=== PATIENT | male | born 1945 | race Caucasian/White ===

== ENCOUNTER → 2016-08-31 | Outpatient (CLI) | payer OTHER, MEDICARE ==
[~2016-08-31] MED LIST: ACET325T96 PO; AMLO2.5T PO; ATOR-24 PO; CZR50 PO; HYDC25 PO; HYDR25TA5 PO; LOSA100T65 PO; LPT40 PO; NRV/5 PO; PARO1TAB29 PO; PRX/40 PO
[2016-08-31 18:17] LABS: BLOOD UREA NITROGEN 20 mg/dl (7-18); BUN/CREATININE RATIO 15.6 (10-20); CALCIUM 8.9 mg/dl (8.5-10.1); CARBON DIOXIDE 30 mmol/L (21-32); CHLORIDE 103 mmol/L (98-107); GLUCOSE 96 mg/dl (70-99); POTASSIUM 3.3 mmol/L (3.5-5.1); SODIUM 140 mmol/L (136-145)
== END | disposition home or self-care (01) ==
LOC: C.LABPBG 12:05
PROVIDERS: ATTEND Internal Medicine Geriatric Medicine
DX: I10 Essential (primary) hypertension (principal)

== ENCOUNTER → 2016-09-07 | Outpatient (CLI) | payer OTHER, MEDICARE ==
[~2016-09-07] MED LIST changes: +OPTIRAY 320 IV PRN
--- NOTE | 2016-09-07 08:53 | DIAGNOSTIC IMAGING REPORT ---
CT angiogram of the chest (CHEST) THORAX WITH AND W/O CLINICAL HISTORY: I71.2 Aneurysm, thoracic [id number] aneurysm TECHNIQUE: Transaxial acquisition with multi axial reformatted images COMPARISON STUDY: 11/14/2015 FINDINGS: Stable mild distention a sending thoracic aorta with maximum diameter of 3.9 cm. This is unchanged from the prior study. No new or interval finding. No evidence for dissection. Several small shotty mediastinal and/or hilar nodes unchanged. Lungs are considered clear. IMPRESSION: Unchanging appearance to the thoracic aorta. Lungs are clear. Electronically signed by: Romain Canela M.D. 09/07/2016 8:51 AM Dictated Date/Time: 09/07/2016 8:49 AM
== END | disposition home or self-care (01) ==
LOC: C.CTS 08:19
PROVIDERS: ATTEND Internal Medicine Geriatric Medicine
DX: I71.2 Thoracic aortic aneurysm, without rupture (principal); R06.02 Shortness of breath

== ENCOUNTER → 2016-11-19 | Outpatient (CLI) | payer OTHER, MEDICARE ==
--- NOTE | 2016-11-19 07:53 | DIAGNOSTIC IMAGING REPORT ---
CT angiogram of chest CHEST ANGIO WITH CONTRAST CLINICAL HISTORY: Aneurysm TECHNIQUE: Transaxial acquisition with multi axial reformatted images. FINDINGS: Mild dilatation of the a sending thoracic aorta with maximum dimension of 3.9 cm. This is unchanged from the prior exam. Lungs are considered clear. No significant hilar or mediastinal adenopathy. No evidence for dissection. COMPARISON STUDY: 09/07/2016 IMPRESSION: 3.9 cm distention a sending thoracic aorta unchanged from the prior study. Electronically signed by: Romain Canela M.D. 11/19/2016 7:51 AM Dictated Date/Time: 11/19/2016 7:46 AM
== END | disposition home or self-care (01) ==
LOC: C.CTS 06:37
PROVIDERS: ATTEND Internal Medicine Geriatric Medicine
DX: I71.2 Thoracic aortic aneurysm, without rupture (principal)

== ENCOUNTER 2017-02-24 15:53 | Emergency (ER) | payer OTHER, MEDICARE ==
[~2017-02-24] VITALS: Ht 172.7 cm; Wt 103.9 kg
[~2017-02-24 15:53] MED LIST changes: -ATOR-24 PO; -HYDR25TA5 PO; -LOSA100T65 PO; -NRV/5 PO; -OPTIRAY 320 IV PRN; -PRX/40 PO
[2017-02-24 16:08] VITALS: TEMP 36.6; Ht 172.7 cm; Wt 103.9 kg
--- NOTE | 2017-02-24 17:24 | EMERGENCY ROOM VISIT NOTE ---
History First contact with patient: 17:23 Chief Complaint: RIB PAIN Stated Complaint: LT SIDE CHEST PAINS FROM LIFTING History of Present Illness The patient is a 71 year old male who presents to the Emergency Room with complaints of left sided chest/ rib pain which was approx 5.5 hours prior to arrival. The patient was lifting a heavy object and had sudden onset left chest pain in the mid axillary line. It was sharp 6/10 pain which did not radiate. Throughout the day with any twisting movements the pain would be replicated. The patient was concerned because it was "in the area' and came in for [facility] assessment. Patient did not suffering from substernal chest pain, SOB, diaphoresis or nausea with the pain. He has no history of WI/ CVA in him or his family. Patient is a non smoker. It is reproducible with palpation. Review of Systems A 10 point review of systems was assessed and negative aside from above Past Medical/Surgical History Medical Problems: (1) Benign hypertension (2) Dyslipidemia (3) History of cochlear implant Family History No significant family history Social History Smoking Status: Never Smoker Smokeless Tobacco Use: No Alcohol Use: none Drug Use: none Marital Status: Housing Status: lives with family Occupation Status: retired Current/Historical Medications Scheduled Amlodipine Besylate (Amlodipine Besylate), 1 TAB PO DAILY Atorvastatin (Lipitor), 1 TAB PO DAILY Hydrochlorothiazide (Hydrochlorothiazide), 1 TAB PO DAILY Losartan Potassium (Cozaar), 1 TAB PO DAILY Paroxetine (Paroxetine HCl), 1 TAB PO DAILY Scheduled PRN Acetaminophen Tab (Tylenol), 325-975 MG PO Q6 PRN for Pain Allergies NKA Physical Exam Vital Signs Date Time Temp Pulse Resp B/P (MAP) Pulse Ox O2 Delivery O2 Flow Rate FiO2 02/24/17 17:58 69 18 118/72 96 Room Air 02/24/17 16:08 36.6 79 20 123/79 95 Room Air Physical Exam General: ambulatory, not in acute distress Skin: no rashes noted, no suspicious lesions, no areas of inflammations/ lacerations/ erythema noted CVS: S1/ S2 noted, RRR, 3/6 systolic murmur noted, no cyanosis, tenderness to palpation of the chest wall at the midaxillary line RVS: Clear throughout bilaterally, not in acute respiratory distress, no wheezing/ rales/ crackles noted ENT: no erythema/ injection/ ulcerations noted in the pharynx, adentulous Neck: Thyroid is not palpable, inspection WNL, full ROM of neck, no bruits noted ABD: BSx4, no pain/ tenderness on palpation, no organomegaly, negative murphys, psoas, Rovsing, CVA tenderness MSK: inspection of all limbs WNL, motor and sensation intact in all limbs, no swelling/ pain on palpation of joints NVS: alert and oriented x 3 Lymph: No lymphadenopathy palpable Medical Decision & Procedures ER Provider Diagnostic Interpretation: SINGLE VIEW CHEST CLINICAL HISTORY: Atypical chest pain. FINDINGS: An AP, portable, upright chest radiograph is compared to study dated 10/23/2014 and correlated with chest CT dated 11/19/2016. The examination is degraded by portable technique and patient rotation. The heart is enlarged and there is atherosclerotic calcification of the thoracic aorta. The pulmonary vasculature is noncongested. Chronic interstitial thickening is similar to previous. No airspace consolidation or large pleural effusion is identified. No pneumothorax is seen. The skeletal structures are osteopenic. Degenerative change is noted in the shoulders and thoracic spine. There are healed left-sided rib fractures. IMPRESSION: Cardiomegaly with no acute cardiopulmonary abnormality. Laboratory Results 02/24/17 17:40 Red Blood Count 4.89, Mean Corpuscular Volume 90.2, Mean Corpuscular Hemoglobin 29.4, Mean Corpuscular Hemoglobin Concent 32.7, Mean Platelet Volume 9.1, Neutrophils (%) (Auto) 63.3, Lymphocytes (%) (Auto) 22.5, Monocytes (%) (Auto) 9.5, Eosinophils (%) (Auto) 3.3, Basophils (%) (Auto) 0.9, Neutrophils # (Auto) 3.46, Lymphocytes # (Auto) 1.23, Monocytes # (Auto) 0.52, Eosinophils # (Auto) 0.18, Basophils # (Auto) 0.05 02/24/17 17:40 Test 02/24/17 17:24 02/24/17 17:40 Creatine Kinase MB Ratio (0-3.0) White Blood Count 5.47 K/uL (4.8-10.8) Red Blood Count 4.89 M/uL (4.7-6.1) Hemoglobin 14.4 g/dL (14.0-18.0) Hematocrit 44.1 % (42-52) Mean Corpuscular Volume 90.2 fL (80-100) Mean Corpuscular Hemoglobin 29.4 pg (25-34) Mean Corpuscular Hemoglobin Concent 32.7 g/dl (32-36) Platelet Count 278 K/uL (130-400) Mean Platelet Volume 9.1 fL (7.4-10.4) Neutrophils (%) (Auto) 63.3 % Lymphocytes (%) (Auto) 22.5 % Monocytes (%) (Auto) 9.5 % Eosinophils (%) (Auto) 3.3 % Basophils (%) (Auto) 0.9 % Neutrophils # (Auto) 3.46 K/uL (1.4-6.5) Lymphocytes # (Auto) 1.23 K/uL (1.2-3.4) Monocytes # (Auto) 0.52 K/uL (0.11-0.59) Eosinophils # (Auto) 0.18 K/uL (0-0.5) Basophils # (Auto) 0.05 K/uL (0-0.2) RDW Standard Deviation 43.7 fL (36.4-46.3) RDW Coefficient of Variation 13.3 % (11.5-14.5) Immature Granulocyte % (Auto) 0.5 % Immature Granulocyte # (Auto) 0.03 K/uL (0.00-0.02) Anion Gap 8.0 mmol/L (3-11) Est Creatinine Clear Calc Drug Dose 74.0 ml/min Estimated GFR () 79.0 Estimated GFR (Non- 68.1 BUN/Creatinine Ratio 15.4 (10-20) Calcium Level 9.0 mg/dl (8.5-10.1) Creatine Kinase MB 4.7 ng/ml (0.5-3.6) Troponin I < 0.015 ng/ml (0-0.045) ECG Indication: chest pain Rate (beats per minute): 75 Rhythm: normal sinus Findings: no acute ischemic change, no ectopy Change: no significant change ED Course 1720: Patient was assessed and evaluated by the PCP 1830: Discussed results of test with patient, discharged home and agreeable Medical Decision Differential diagnosis: Etiologies such as cardiac ischemia, aortic dissection, pulmonary embolism, pneumonia, pneumothorax, musculoskeletal, infections, pericarditis, myocarditis , esophageal rupture, gastrointestinal, as well as others were entertained. This is a 71 yo m that is suffering from left chest/ rib pain and underwent a cardiac assessment. CBC did not reveal any anemia or leukocytosis. No PNA or overt fractures noted on the CXR however unlikely that patient has a rib fracture as no trauma associated with the pain. BMP was unremarkable and troponin is negative. It is reassuring that troponin and pain is reproducible with palpation as this makes it more likely to be MSK based. Discussed close follow up with PCP in particular for evaluation of murmur. Patient reflected understanding and discharged home. Blood Pressure Screening Patient's blood pressure: Normal blood pressure Impression Primary Impression: Muscle strain of chest wall Departure Information Dispostion Home / Self-Care Condition GOOD Referrals Miguel Angel Rea M.D. (PCP) Patient Instructions [facility] Problem Qualifiers Primary Impression: Muscle strain of chest wall Encounter type: initial encounter Qualified Codes: S29.011A - Strain of muscle and tendon of front wall of thorax, initial encounter
--- NOTE | 2017-02-24 17:35 | EMERGENCY ROOM VISIT NOTE ---
ED Visit Note First contact with patient: 17:23 Resident Physician Supervision Note: I interviewed and examined the patient. Discussed with Dr. Macias and agree with findings and plan as documented in the note. Documented By: Ralph Garcia Problem List Medical Problems: (1) Benign hypertension Status: Chronic (2) Dyslipidemia Status: Chronic (3) History of cochlear implant Status: Resolved Current/Historical Medications Scheduled Amlodipine Besylate (Norvasc), 2.5 MG PO DAILY Atorvastatin (Atorvastatin Calcium), 40 MG PO HS Hydrochlorothiazide (Hctz *), 25 MG PO QPM Losartan Potassium (Cozaar *), 100 MG PO QPM Paroxetine (Paxil), 40 MG PO QPM Scheduled PRN Acetaminophen Tab (Tylenol), 325-975 MG PO Q6 PRN for Pain Allergies Coded Allergies: No Known Allergies (Unverified , 08/24/15) Vital Signs Date Time Temp Pulse Resp B/P (MAP) Pulse Ox O2 Delivery O2 Flow Rate FiO2 02/24/17 16:08 36.6 79 20 123/79 95 Room Air Laboratory Results Test 02/24/17 17:24 Creatine Kinase MB Ratio (0-3.0) Departure Information Referrals Miguel Angel Rea M.D. (PCP) Patient Instructions My [facility]
[2017-02-24] MEDS ORDERED: HYDR25TA5 PO (17:38)
[2017-02-24] MEDS ORDERED: NRV/5 PO (17:38)
[2017-02-24] MEDS ORDERED: ATOR-24 PO (17:38)
[2017-02-24] MEDS ORDERED: LOSA100T65 PO (17:38)
[2017-02-24] MEDS ORDERED: PRX/40 PO (17:38)
[2017-02-24 17:53] LABS: BASO % 0.9 %; BASO ABS # 0.05 K/uL (0-0.2); COMPLETE YES; EOS % 3.3 %; HEMATOCRIT 44.1 % (42-52); IG% 0.5 %; LYMPH % 22.5 %; LYMPH ABS # 1.23 K/uL (1.2-3.4); MEAN CELL VOLUME 90.2 fL (80-100); MEAN CORPUSCULAR HEMOGLOBIN 29.4 pg (25-34); MEAN CORPUSCULAR HGB CONC 32.7 g/dl (32-36); MEAN PLATELET VOLUME 9.1 fL (7.4-10.4); MONO % 9.5 %; NEUT % 63.3 %; PLATELET COUNT 278 K/uL (130-400); RED BLOOD COUNT 4.89 M/uL (4.7-6.1); WHITE BLOOD COUNT 5.47 K/uL (4.8-10.8)
--- NOTE | 2017-02-24 18:00 | DIAGNOSTIC IMAGING REPORT ---
SINGLE VIEW CHEST CLINICAL HISTORY: Atypical chest pain. FINDINGS: An AP, portable, upright chest radiograph is compared to study dated 10/23/2014 and correlated with chest CT dated 11/19/2016. The examination is degraded by portable technique and patient rotation. The heart is enlarged and there is atherosclerotic calcification of the thoracic aorta. The pulmonary vasculature is noncongested. Chronic interstitial thickening is similar to previous. No airspace consolidation or large pleural effusion is identified. No pneumothorax is seen. The skeletal structures are osteopenic. Degenerative change is noted in the shoulders and thoracic spine. There are healed left-sided rib fractures. IMPRESSION: Cardiomegaly with no acute cardiopulmonary abnormality. Electronically signed by: Kimo Mora M.D. 02/24/2017 5:59 PM Dictated Date/Time: 02/24/2017 5:58 PM
[2017-02-24 18:10] LABS: BLOOD UREA NITROGEN 17 mg/dl (7-18); BUN/CREATININE RATIO 15.4 (10-20); CARBON DIOXIDE 28 mmol/L (21-32); CHLORIDE 98 mmol/L (98-107); GLUCOSE 87 mg/dl (70-99); POTASSIUM 3.5 mmol/L (3.5-5.1); SODIUM 134 mmol/L (136-145)
[2017-02-24 18:50] VITALS: BP 133/83; PULSE 70; O2SAT 94
== END 2017-02-24 18:50 | disposition home or self-care (01) ==
LOC: C.EDB 15:54 → C.EDA 18:50
DX: S29.011A Strain of muscle and tendon of front wall of thorax, initial encounter (principal); X50.0XXA Overexertion from strenuous movement or load, initial encounter; I10 Essential (primary) hypertension; E78.5 Hyperlipidemia, unspecified; Z79.899 Other long term (current) drug therapy

== ENCOUNTER → 2017-04-09 | Outpatient (CLI) | payer OTHER, MEDICARE ==
[~2017-04-09] MED LIST changes: -AMLO2.5T PO; +ATOR-24 PO; -CZR50 PO; -HYDC25 PO; +HYDR25TA5 PO; +LOSA100T65 PO; -LPT40 PO; +NRV/5 PO; +OPTIRAY 320 IV PRN; -PARO1TAB29 PO; +PRX/40 PO
--- NOTE | 2017-04-09 10:10 | DIAGNOSTIC IMAGING REPORT ---
ANGIOGRAPHY HEAD COMBO CLINICAL HISTORY: 71 years-old Male presenting with right-sided head pain, radiating to the jaw, trigeminal neuralgia, unable to obtain MRI. TECHNIQUE: Multidetector CT angiography of the head was performed after the administration of intravenous contrast. 3-D volumetric and/or maximum intensity projection (MIP) images were subsequently reconstructed for review. IV contrast: 93 mL of Optiray 320. A dose lowering technique was used consistent with the principles of ALARA (as low as reasonably achievable). COMPARISON: 05/16/2012. CT DOSE (mGy.cm): The estimated cumulative dose is 1023.93 mGy.cm. FINDINGS: Strategy Analyst topogram: Cochlear implants noted bilaterally. Noncontrast CT head: Extensive streak artifact arising from the cochlear implants degrades evaluation. Ventricles and sulci normal in size. Periventricular and subcortical white matter hypoattenuation, nonspecific but likely indicative of chronic small vessel ischemic change. No mass effect or midline shift. No hemorrhage or acute territorial infarct. No extra-axial fluid collection. Paranasal sinuses and mastoid air cells clear. Calvarium intact. Bilateral kasaan lenses are absent. CTA head: Anterior circulation demonstrates patent intracranial portions of the internal carotid arteries. Atherosclerosis of the cavernous segments without significant narrowing. Middle and anterior cerebral arteries patent. Anterior commuting artery patent. Posterior circulation demonstrates codominant vertebral arteries with atherosclerosis most significantly in the right vertebral artery resulting in less than 50% stenosis. Bilateral posterior inferior cerebellar, superior cerebellar, and posterior cerebral arteries patent. Anterior inferior cerebellar arteries poorly visualized. Hypoplastic or aplastic posterior communicating arteries. No evidence of aneurysm, focal vessel occlusion, or significant stenosis. Specifically, the region of Meckel's cave and the prepontine cistern are normal in appearance. IMPRESSION: 1. No acute intracranial pathology. 2. No significant aneurysm, stenosis, or focal vessel occlusion. Electronically signed by: Sharath Moreau M.D. 04/09/2017 10:06 AM Dictated Date/Time: 04/09/2017 9:58 AM
== END | disposition home or self-care (01) ==
LOC: C.CTS 09:18
PROVIDERS: ATTEND Internal Medicine Geriatric Medicine
DX: G50.0 Trigeminal neuralgia (principal); R51 Headache

== ENCOUNTER → 2017-06-29 | Outpatient (CLI) | payer OTHER, MEDICARE ==
[~2017-06-29] MED LIST changes: +ACET-1693 PO; -ACET325T96 PO; -OPTIRAY 320 IV PRN
[2017-06-29 12:57] LABS: BASO % 1.5 %; BASO ABS # 0.08 K/uL (0-0.2); EOS % 2.6 %; EOS ABS # 0.14 K/uL (0-0.5); HEMATOCRIT 42.6 % (42-52); HEMOGLOBIN 14.9 g/dL (14.0-18.0); IG# 0.03 K/uL (0.00-0.02); LYMPH % 20.3 %; LYMPH ABS # 1.11 K/uL (1.2-3.4); MEAN CELL VOLUME 89.9 fL (80-100); MEAN CORPUSCULAR HEMOGLOBIN 31.4 pg (25-34); MEAN PLATELET VOLUME 9.2 fL (7.4-10.4); MONO % 12.4 %; MONO ABS # 0.68 K/uL (0.11-0.59); NEUT % 62.7 %; NEUT ABS # 3.44 K/uL (1.4-6.5); PLATELET COUNT 280 K/uL (130-400); RED CELL DISTRIBUTION WIDTH CV 13.1 % (11.5-14.5); RED CELL DISTRIBUTION WIDTH SD 43.1 fL (36.4-46.3); WHITE BLOOD COUNT 5.48 K/uL (4.8-10.8)
[2017-06-29 14:36] LABS: ALBUMIN 3.8 gm/dl (3.4-5.0); ALKALINE PHOSPHATASE 124 U/L (45-117); ALT/SGPT 56 U/L (12-78); AST/SGOT 33 U/L (15-37); BLOOD UREA NITROGEN 17 mg/dl (7-18); CARBON DIOXIDE 30 mmol/L (21-32); CREATININE 1.05 mg/dl (0.60-1.40); GLUCOSE 84 mg/dl (70-99); POTASSIUM 3.1 mmol/L (3.5-5.1); SODIUM 129 mmol/L (136-145); TOTAL PROTEIN 7.3 gm/dl (6.4-8.2)
== END | disposition home or self-care (01) ==
LOC: C.LABPBG 10:37
PROVIDERS: ATTEND Internal Medicine Geriatric Medicine
DX: I10 Essential (primary) hypertension (principal); G50.0 Trigeminal neuralgia; M54.5 Low back pain; G89.29 Other chronic pain

== ENCOUNTER → 2017-07-16 | Outpatient (CLI) | payer OTHER, MEDICARE ==
[2017-07-16 13:09] LABS: BLOOD UREA NITROGEN 17 mg/dl (7-18); CREATININE 1.07 mg/dl (0.60-1.40); GLUCOSE 89 mg/dl (70-99)
[2017-07-16 13:10] LABS: CALCIUM 9.5 mg/dl (8.5-10.1); CARBON DIOXIDE 27 mmol/L (21-32); POTASSIUM 4.2 mmol/L (3.5-5.1); SODIUM 135 mmol/L (136-145)
== END | disposition home or self-care (01) ==
LOC: C.LABPBG 09:13
PROVIDERS: ATTEND Internal Medicine Geriatric Medicine
DX: I10 Essential (primary) hypertension (principal); R74.8 Abnormal levels of other serum enzymes

== ENCOUNTER 2018-01-12 11:58 | Emergency (ER) | payer OTHER, MEDICARE ==
[~2018-01-12] VITALS: Ht 172.7 cm; Wt 105.8 kg
[2018-01-12 12:06] VITALS: TEMP 36.5; Ht 172.7 cm; Wt 105.8 kg
--- NOTE | 2018-01-12 12:54 | EMERGENCY ROOM VISIT NOTE ---
History Report prepared by Christopher: Harjeet Foy Under the Supervision of: Dr. Yimi Hicks M.D. First contact with patient: 12:43 Chief Complaint: CARDIAC ASSESSMENT Stated Complaint: COLD IN THE LUNGS - PAIN FOR 5 DAYS History of Present Illness The patient is a 72 year old male who presents to the Emergency Room with complaints of chest pain x4-5 days. The patient notes he has a history of pleurisy. He states the past x4-5 days he has had waxing and waning chest pain however it never goes away. He states the pain is on the left side of his chest. He states movement makes the pain worse. He notes he has been taking Tylenol for it, with no relief. He states he has a history of this pain, and states it would normally resolve on it's own, but since it hasn't he became concerned and came in. Pt denies LOC, headache, fevers, chills, diaphoresis, visual changes, neck pain , tearing pain radiating to the back, personal history or family history of aneurysm or pulmonary embolism, uncontrolled hypertension, breathing difficulties, leg swelling, coagulation abnormalities, prolonged travel, recent surgery or immobilization, nausea, vomiting, abdominal pain, melena, hematochezia, urinary symptoms, numbness, weakness, lymphadenopathy, rash, or other complaints. Source of History: patient Onset: x4-5 days Position: chest (left) Symptom Intensity: moderate Quality: ache Timing: waxes/wanes Modifying Factors (Worsening): exertion, movement Modifying Factors (Relieving): rest Associated Symptoms: No LOC, No fevers, No chills, No headache, No sorethroat, No cough, No neck pain, No SOB, No nausea, No vomiting, No abdominal pain, No back pain, No diarrhea, No urinary symptoms, No weakness, No numbness Review of Systems See HPI for pertinent positives and negatives. A total of ten systems were reviewed and were otherwise negative. Constitutional: No fever, No chills Respiratory: No cough, No shortness of breath Cardiovascular: + chest pain Abdomen: No pain, No nausea, No vomiting, No diarrhea Genitourinary - Male: No dysuria Neurologic: No weakness, No numbness/tingling Endocrine: No fatigue Integumentary: No rash Past Medical & Surgical Medical Problems: (1) Benign hypertension (2) Dyslipidemia (3) Glaucoma (4) History of cochlear implant (5) Pleurisy (6) Trigeminal neuralgia Family History No significant family history Social History Smoking Status: Never Smoker Alcohol Use: none Drug Use: none Marital Status: Housing Status: lives with family Occupation Status: retired Current/Historical Medications Scheduled Amlodipine Besylate (Amlodipine Besylate), 1 TAB PO DAILY Atorvastatin (Lipitor), 1 TAB PO DAILY Carbamazepine Extended Release (Tegretol Xr), 100 MG PO BID Hydrochlorothiazide (Hydrochlorothiazide), 1 TAB PO DAILY Losartan Potassium (Cozaar), 1 TAB PO DAILY Paroxetine (Paroxetine HCl), 1 TAB PO DAILY Tamsulosin HCl (Tamsulosin HCl), 0.4 MG PO DAILY Scheduled PRN Acetaminophen Tab (Tylenol), 325-975 MG PO Q6 PRN for Pain Allergies Coded Allergies: No Known Allergies (Unverified , 01/12/18) Physical Exam Vital Signs Date Time Temp Pulse Resp B/P (MAP) Pulse Ox O2 Delivery O2 Flow Rate FiO2 01/12/18 16:16 82 18 137/79 99 01/12/18 15:45 77 01/12/18 15:03 73 15 97 01/12/18 15:01 166/112 01/12/18 14:33 70 19 95 01/12/18 14:31 160/96 01/12/18 14:22 67 153/89 95 Room Air 01/12/18 14:22 153/89 01/12/18 14:03 68 16 95 01/12/18 13:33 68 17 95 01/12/18 13:03 68 96 01/12/18 12:58 71 15 95 01/12/18 12:33 73 01/12/18 12:28 75 22 94 01/12/18 12:18 128/78 01/12/18 12:06 36.5 90 17 124/78 95 Room Air Physical Exam GENERAL: Awake, alert, well-appearing, in no distress HENT: Cochlear implants noted. Normocephalic, atraumatic. Oropharynx unremarkable. EYES: Normal conjunctiva. Sclera non-icteric. NECK: Supple. No nuchal rigidity. FROM. No masses. RESPIRATORY: Clear to auscultation. No wheezes. No rales. Normal respiratory effort. CARDIAC: Systolic ejection murmur noted. Chest is non-tender with palpation. Normal rate. Normal rhythm. No rubs. Extremities warm and well perfused. Pulses equal. No JVD. GI: Soft, non-distended. No tenderness to palpation. No rebound or guarding. No masses. RECTAL: Deferred. MUSCULOSKELETAL: Atraumatic. Chest examination reveals no tenderness. The back is symmetrical on inspection without obvious abnormality. There is no CVA tenderness to palpation. No joint edema. LOWER EXTREMITIES: Calves are equal size bilaterally and non-tender. No edema. No discoloration. NEURO: Normal sensorium. No sensory or motor deficits noted. SKIN: No rash or jaundice noted. Medical Decision & Procedures ER Provider Diagnostic Interpretation: Radiology results as stated below per my review and radiologist interpretation: CHEST ONE VIEW PORTABLE CLINICAL HISTORY: Atypical chest pain COMPARISON STUDY: 02/24/2017 FINDINGS: The heart is enlarged. There is no focal pulmonary consolidation. There is mild interstitial thickening. There is no overt failure. There are no pleural effusions.[ IMPRESSION: Mild cardiomegaly. No evidence of focal pulmonary consolidation. Laboratory Results 01/12/18 12:50 01/12/18 12:50 Test 01/12/18 12:50 01/12/18 12:52 01/12/18 13:17 Red Blood Count 4.34 M/uL (4.7-6.1) Mean Corpuscular Volume 90.6 fL (80-100) Mean Corpuscular Hemoglobin 31.6 pg (25-34) Mean Corpuscular Hemoglobin Concent 34.9 g/dl (32-36) RDW Standard Deviation 43.3 fL (36.4-46.3) RDW Coefficient of Variation 13.2 % (11.5-14.5) Mean Platelet Volume 8.8 fL (7.4-10.4) Anion Gap 8.0 mmol/L (3-11) Est Creatinine Clear Calc Drug Dose 74.3 ml/min Estimated GFR () 79.3 Estimated GFR (Non- 68.4 BUN/Creatinine Ratio 12.8 (10-20) Calcium Level 8.9 mg/dl (8.5-10.1) Total Bilirubin 0.4 mg/dl (0.2-1) Aspartate Amino Transf (AST/SGOT) 31 U/L (15-37) Alanine Aminotransferase (ALT/SGPT) 39 U/L (12-78) Alkaline Phosphatase 111 U/L (45-117) Total Creatine Kinase 175 U/L (39-308) Creatine Kinase MB 3.0 ng/ml (0.5-3.6) Creatine Kinase MB Ratio 1.7 (0-3.0) Total Protein 7.1 gm/dl (6.4-8.2) Albumin 3.7 gm/dl (3.4-5.0) Globulin 3.4 gm/dl (2.5-4.0) Albumin/Globulin Ratio 1.1 (0.9-2) Bedside Troponin I 0.030 ng/ml (0-0.045) Prothrombin Time 10.2 SECONDS (9.0-12.0) Prothromb Time International Ratio 1.0 (0.9-1.1) Activated Partial Thromboplast Time 24.3 SECONDS (21.0-31.0) Partial Thromboplastin Ratio 0.9 D-Dimer 470 ug/L FEU (0-500) Laboratory results reviewed by me ECG Per My Interpretation Indication: chest pain Rate (beats per minute): 72 Rhythm: normal sinus Findings: other (LVH, Nonspecific ST T-Wave changes, No PACs or PVCs, no ST elevation or depression) Medical Decision Prior records/ancillary studies reviewed. Triage Nursing notes reviewed and agree them. Additional history obtained from the family. The patient's history was concerning for chest pain. Differential diagnosis: Etiologies such as pleurisy, costochondritis, cardiac ischemia, aortic dissection, pulmonary embolism, pneumonia, pneumothorax, musculoskeletal, infections, pericarditis, myocarditis, esophageal rupture, gastrointestinal, as well as others were entertained. Physical examination: As above. ER treatment provided: No medication given On reassessment the patient felt well. Diagnostic interpretation by me: The electrocardiogram was negative for pathologic change. The labs revealed an unremarkable CBC and chemistry panel. A single set of cardiac markers were performed because the patient's pain was present for greater than 8 hours. A d-dimer was performed and it was negative. Based on Wells criteria and a negative dimer no further imaging for PE was performed. Imaging studies: Chest x-ray as above The patient is doing very well. He has had several days of constant pain that has waxed and waned. He has a history of pleurisy. He does have some reproducible nature of the pain with movement. He denies any other associated cardiac symptoms. His troponin was negative. His d-dimer was negative. The patient's chest x-ray was unremarkable. I discussed conservative management with him. This could be a mild case of pleurisy or even mild costochondritis. He will follow up with his primary physician. If he worsens in any way he will be back. I gave my usual and customary discussion regarding this issue. By the evaluation outlined above other emergent etiologies such as those listed in the differential, as well as others, were deemed relatively unlikely. The patient was educated about the findings as listed above. All questions were answered and the patient was pleased with the treatment. Return instructions were outlined and the patient was discharged in stable condition. The patient was referred to his PCP for follow-up for a recheck of the current condition. Medication Reconcilliation Current Medication List: was personally reviewed by me Blood Pressure Screening Patient's blood pressure: Normal blood pressure Impression Primary Impression: Left sided chest pain Scribe Attestation The scribe's documentation has been prepared under my direction and personally reviewed by me in its entirety. I confirm that the note above accurately reflects all work, treatment, procedures, and medical decision making performed by me. Departure Information Dispostion Home / Self-Care Referrals Miguel Angel Rea M.D. (PCP) Forms IMPORTANT VISIT INFORMATION Patient Instructions My [facility] Additional Instructions CHEST PAIN INSTRUCTIONS: Acetaminophen(Tylenol) may be used for fever or pain. Use 1000mg every six hours as needed. Avoid using more than 4000mg in a 24 hour period. Rest and drink plenty of fluids as tolerated. Continue current medications. Avoid strenuous activities and anything that worsens your pain. Resume normal activities once your symptoms resolve. Return to the ER immediately for worsening or persistent chest pain, abdominal pain, vomiting, fevers, chest pains, difficulty breathing, worsening of your condition, or as needed. Follow up with your primary physician in 2-3 days for a recheck of your current condition.
[2018-01-12] MEDS ORDERED: CARB1CAP10 PO (13:01)
[2018-01-12] MEDS ORDERED: FLM4 PO (13:01)
[2018-01-12 13:04] LABS: HEMATOCRIT 39.3 % (42-52); HEMOGLOBIN 13.7 g/dL (14.0-18.0); MEAN CELL VOLUME 90.6 fL (80-100); MEAN CORPUSCULAR HEMOGLOBIN 31.6 pg (25-34); MEAN CORPUSCULAR HGB CONC 34.9 g/dl (32-36); MEAN PLATELET VOLUME 8.8 fL (7.4-10.4); PLATELET COUNT 290 K/uL (130-400); RED CELL DISTRIBUTION WIDTH CV 13.2 % (11.5-14.5); RED CELL DISTRIBUTION WIDTH SD 43.3 fL (36.4-46.3); WHITE BLOOD COUNT 5.54 K/uL (4.8-10.8)
--- NOTE | 2018-01-12 13:12 | DIAGNOSTIC IMAGING REPORT ---
CHEST ONE VIEW PORTABLE CLINICAL HISTORY: Atypical chest pain COMPARISON STUDY: 02/24/2017 FINDINGS: The heart is enlarged. There is no focal pulmonary consolidation. There is mild interstitial thickening. There is no overt failure. There are no pleural effusions.[ IMPRESSION: Mild cardiomegaly. No evidence of focal pulmonary consolidation. Electronically signed by: Nathaniel Lora M.D. 01/12/2018 1:11 PM Dictated Date/Time: 01/12/2018 1:10 PM
[2018-01-12 13:22] LABS: ALBUMIN 3.7 gm/dl (3.4-5.0); CALCIUM 8.9 mg/dl (8.5-10.1); CREATININE 1.09 mg/dl (0.60-1.40); POTASSIUM 3.5 mmol/L (3.5-5.1); TOTAL PROTEIN 7.1 gm/dl (6.4-8.2)
[2018-01-12 13:34] LABS: PTT PATIENT 24.3 SECONDS (21.0-31.0)
[2018-01-12 16:16] VITALS: BP 137/79; PULSE 82; O2SAT 99
== END 2018-01-12 16:16 | disposition home or self-care (01) ==
LOC: C.EDB 12:00
DX: R07.9 Chest pain, unspecified (principal); I10 Essential (primary) hypertension; E78.5 Hyperlipidemia, unspecified; H40.9 Unspecified glaucoma; G50.0 Trigeminal neuralgia; Z79.899 Other long term (current) drug therapy

== ENCOUNTER 2021-02-10 08:55 | Inpatient (IN) ==
[2021-02-10] MEDS ORDERED: PANTOprazole 80 MG in DEXTROSE 5% 100 ML IV ONE (10:03)
[2021-02-10] MEDS ORDERED: FAMOTIDINE 20MG IV PUSH 20 MG/5 ML SYR IV STA (10:03)
--- NOTE | 2021-02-10 10:06 | Emergency Department Note ---
Impression & Plan Rectal bleeding, Diverticula of colon, Coagulopathy ED Provider Note NAME: SRI ACEVEDO AGE: 75 SEX: M : 1945 ARRIVES VIA: Walk-In INFORMANT: [Patient] ED PROVIDER(S): [Kimo Sandoval MD] CHIEF COMPLAINT: Rectal bleeding HISTORY OF PRESENT ILLNESS: The patient is a 75-year-old male who presents with several days of rectal bleeding. He has no abdominal pain. There has been no chest pain or shortness of breath. No fainting. No weakness. He is on Eliquis. He last took Eliquis last night, he skipped his morning dose. This a.m., his underwear and the bed were covered in blood. He presents for evaluation. The patient has had some diarrhea over the last couple of days. He states that now it is mostly just blood. He has no history of previous GI bleeding. REVIEW OF SYSTEMS: See HPI for pertinent positives and negatives. A total of ten systems were reviewed and were otherwise negative. PMHx/PSHx: See Below SOCIAL HISTORY: See Below. PHYSICAL EXAM: GENERAL: Patient is in no acute distress. HEENT: No acute trauma, normocephalic atraumatic, mucous membranes moist, no nasal congestion, no scleral icterus. NECK: No stridor, no adenopathy, no meningismus, trachea is midline. LUNGS: Clear to auscultation bilaterally, no wheeze, no rhonchi, breath sounds equal. HEART: 2/6 systolic murmur, regular rate and rhythm. ABDOMEN: Soft, nontender, bowel sounds positive, no hernias, no peritonitis. EXTREMITIES: No cyanosis or edema, full range of motion of all the joints without pain or difficulty, no signs for acute trauma. NEUROLOGIC: Oriented x 3, no acute motor or sensory deficits, no focal weakness. SKIN: No rash, no jaundice, no diaphoresis. Rectal: No external source for bleeding. Digital exam reveals dark, maroon blood. Heme positive. DIFFERENTIAL DIAGNOSIS: Diverticulosis, AVM, coagulopathy, colitis, inflammatory bowel disease, malignancy, Umu-Slaughter tear, esophagitis, peptic ulcer disease, variceal bleed, gastritis, epistaxis, fissure, hemorrhoids, as well as other pathologies. EMERGENCY DEPARTMENT COURSE/PROCEDURES: ECG: Indication was GI bleeding. The ECG shows a sinus rhythm with a first- degree AV block. The rate is 72. There are inverted T waves in the anterior leads. No ST elevation. QTc is 464. Compared to an ECG from 12 January 2018, a first-degree AV block is now present. The T wave inversions in the anterior leads are now present. Continuous Cardiac Monitoring: An order was placed for continuous cardiac monitoring. The monitor shows a rate of 79 with sinus rhythm with a first AV block. Critical Care Note: I have personally spent 45 minutes of critical care time in the direct management of this patient. This includes bedside care, interpretation of diagnostic studies, and testing, discussion with consultants, patient, and family members, and other required patient management activities. This 45 minutes is in excess of all separately billable procedures. MEDICAL DECISION MAKING: There is no leukocytosis. There is no current anemia. There is a normal platelet count. INR and PTTR are normal. No significant electrolyte abnormality or kidney failure. No worrisome liver enzyme elevation. ECG shows a sinus rhythm, no acute ischemia. Cardiac enzyme testing x1 is not consistent with acute cardiac injury. Covid testing returned negative. Abdominal CT imaging shows diverticuli, no diverticulitis, no acute surgical process by CT scan. On exam, the patient's stool was maroon in color and heme positive. There was no external source for bleeding. The patient was given IV saline and IV Protonix. He was given IV Pepcid. The patient is a currently stable. He is on Eliquis and thus, his chance for bleeding is quite high. He has obvious maroon-colored blood per rectum. A hospital stay is warranted. He may require a colonoscopy if he does not stop bleeding. The bleeding is likely lower intestinal, statistically diverticular bleeding. I spoke to the patient, I talked with the family caseworker. The on-call hospitalist has been consulted. Past Med/Surg History Medical History Aneurysm, thoracic aortic Aortic atherosclerosis Aortic stenosis, moderate Atrial fibrillation Cervical disc disease Chronic sinusitis Cognitive disorder Coronary artery calcification Depression with anxiety Dyslipidemia Glaucoma Hearing loss Hepatic steatosis History of central retinal vein occlusion History of pilonidal cyst Hypertension Lower urinary tract symptoms (LUTS) Lumbar spinal stenosis Mitral regurgitation Osteoarthritis PAC (premature atrial contraction) Sleep apnea Trigeminal neuralgia Vitamin D deficiency Surgical History H/O cataract extraction (2013) History of cochlear implant (01/12/12) BILATERAL History of umbilical hernia repair S/P foot surgery, right (12/2010) removal of heel spur S/P laser trabeculoplasty of eye (10/2014) b/l S/P nasal endoscopy with nasal polypectomy (2011) S/P rotator cuff repair b/l shoulders Family History Mother No pertinent family history Other Hypertension Denies family history of Ovarian cancer Prostate cancer Diabetes Myocardial infarction Breast cancer Colorectal cancer Cancer Social History Smoking Status: Never smoker Second Hand Exposure: No; Hx Alcohol Use: No Hx Substance Use: No Preferred Language: Argentine Communication Ability: Effective Visual Impairment: No Limitations Hearing Ability: Cochlear Implant 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 Coffee 1 cup per day.) during the past year weight has: remained stable Dental Care, Regularly: No Physical Activity Frequency: Does not Exercise Seatbelt Use: sometimes Sunscreen Use: No Assistive Devices: Glasses Assistive Devices Comment: bilateral cochlear implants Allergies Allergies Allergy/AdvReac Type Severity Reaction Status Date / Time baclofen Allergy Verified 02/03/21 10:33 cyclobenzaprine Allergy Verified 02/03/21 10:33 [From Flexeril] doxazosin Allergy Verified 02/03/21 10:33 doxycycline Allergy Verified 02/03/21 10:33 duloxetine Allergy Verified 02/03/21 10:33 gabapentin Allergy Verified 02/03/21 10:33 lisinopril Allergy Verified 02/03/21 10:33 naproxen Allergy Verified 02/03/21 10:33 nortriptyline [From Pamelor] Allergy Verified 02/03/21 10:33 oxcarbazepine Allergy Verified 02/03/21 10:33 Penicillins Allergy Verified 02/03/21 10:33 Home Meds Previous Rx's Medication Instructions Recorded acetaminophen 500 mg tablet 1,000 mg PO TID PRN #90 tab 11/18/18 hydrochlorothiazide 25 mg tablet 25 mg PO DAILY #90 tab 05/13/20 losartan 100 mg tablet 100 mg PO DAILY #90 tab 05/20/20 amlodipine 5 mg tablet 5 mg PO DAILY #90 tab 07/19/20 atorvastatin 40 mg tablet 40 mg PO DAILY #90 tab 08/22/20 paroxetine HCl 40 mg tablet 40 mg PO DAILY #90 tab 10/15/20 potassium chloride 20 mEq 20 meq PO DAILY #90 tab 01/14/21 tablet,extended release rivaroxaban 20 mg tablet (Xarelto) 20 mg PO DAILY #90 tab 01/15/21 cholecalciferol (vitamin D3) 50 2,000 unit PO DAILY #90 cap 02/03/21 mcg (2,000 unit) capsule Results & Data (ED) Vital Signs Vital Signs - 24 hr 02/10/21 09:04 02/10/21 10:00 02/10/21 10:10 Temperature 36.7 C Temperature Source Skin Pulse Rate 79 75 Pulse Rate from SpO2 Sensor Respiratory Rate 18 16 Blood Pressure 122/79 133/82 Blood Pressure Mean 93 99 Pulse Oximetry 97 97 98 Oxygen Delivery Method Room Air Room Air Sepsis Recent Fever Within 48 Hours No Sepsis New/Unexplained Change in Mental Status No Sepsis Action Taken by Nursing No Action Required 02/10/21 10:30 02/10/21 11:06 02/10/21 11:30 Temperature Temperature Source Pulse Rate 65 83 80 Pulse Rate from SpO2 Sensor 83 77 Respiratory Rate 16 28 H 25 H Blood Pressure 131/80 134/96 143/93 H Blood Pressure Mean 97 108 109 Pulse Oximetry 95 95 95 Oxygen Delivery Method Sepsis Recent Fever Within 48 Hours Sepsis New/Unexplained Change in Mental Status Sepsis Action Taken by Group Home Medications Current Medication List: was personally reviewed by me Laboratory Data Attestation: I reviewed the patient's lab results. Result diagrams: 02/10/21 17:00 02/10/21 10:06 Lab Results 02/10/21 02/10/21 02/10/21 Range/Units 10:06 10:06 10:06 WBC 4.69 L (4.8-10.8) K/uL RBC 4.57 L (4.7-6.1) M/uL Hgb 14.5 (14.0-18.0) g/dL Hct 43.9 (42-52) % MCV 96.1 (80-100) fL MCH 31.7 (25-34) pg MCHC 33.0 (32-36) g/dL RDW Std Deviation 48.1 H (36.4-46.3) fL RDW Coeff of Herrera 13.7 (11.5-14.5) % Plt Count 270 (130-400) K/uL MPV 9.2 (7.4-10.4) fL Immature Gran % (Auto) 0.4 % Neut % (Auto) 70.4 % Lymph % (Auto) 13.4 % [place] % (Auto) 13.6 % Eos % (Auto) 1.3 % Baso % (Auto) 0.9 % Neut # (Auto) 3.30 (1.4-6.5) K/uL Lymph # (Auto) 0.63 L (1.2-3.4) K/uL [place] # (Auto) 0.64 H (0.11-0.59) K/uL Eos # (Auto) 0.06 (0-0.5) K/uL Baso # (Auto) 0.04 (0-0.2) K/uL Immature Gran # (Auto) 0.02 (0.00-0.02) K/uL PT 10.6 (9.0-12.0) Seconds INR 1.0 (0.9-1.1) APTT 27.2 (21.0-31.0) Seconds PTT Ratio 1.0 Sodium (136-145) mmol/L Potassium (3.5-5.1) mmol/L Chloride (98-107) mmol/L Carbon Dioxide (21-32) mmol/L Anion Gap (3-11) BUN (7-18) mg/dl Creatinine (0.6-1.4) mg/dl Est Cr Clr Drug Dosing ml/min Est GFR ( Amer) ml/min Est GFR (Non-Af Amer) ml/min BUN/Creatinine Ratio (10-20) Glucose (70-99) mg/dl Calcium (8.5-10.1) mg/dl Total Bilirubin (0.2-1) mg/dl AST (15-37) U/L ALT (12-78) U/L Alkaline Phosphatase (45-117) U/L Troponin I (0-0.045) ng/ml Total Protein (6.4-8.2) gm/dl Albumin (3.4-5.0) gm/dl Globulin (2.5-4.0) gm/dl Albumin/Globulin Ratio (0.9-2) COVID-19 Eval Order SARS-CoV-2 (PCR) (Negative) Blood Type A Positive Antibody Screen NEGATIVE 02/10/21 02/10/21 02/10/21 Range/Units 10:06 10:32 10:32 WBC (4.8-10.8) K/uL RBC (4.7-6.1) M/uL Hgb (14.0-18.0) g/dL Hct (42-52) % MCV (80-100) fL MCH (25-34) pg MCHC (32-36) g/dL RDW Std Deviation (36.4-46.3) fL RDW Coeff of Herrera (11.5-14.5) % Plt Count (130-400) K/uL MPV (7.4-10.4) fL Immature Gran % (Auto) % Neut % (Auto) % Lymph % (Auto) % [place] % (Auto) % Eos % (Auto) % Baso % (Auto) % Neut # (Auto) (1.4-6.5) K/uL Lymph # (Auto) (1.2-3.4) K/uL [place] # (Auto) (0.11-0.59) K/uL Eos # (Auto) (0-0.5) K/uL Baso # (Auto) (0-0.2) K/uL Immature Gran # (Auto) (0.00-0.02) K/uL PT (9.0-12.0) Seconds INR (0.9-1.1) APTT (21.0-31.0) Seconds PTT Ratio Sodium 135 L (136-145) mmol/L Potassium 3.7 (3.5-5.1) mmol/L Chloride 101 (98-107) mmol/L Carbon Dioxide 30 (21-32) mmol/L Anion Gap 4.0 (3-11) BUN 19 H (7-18) mg/dl Creatinine 1.14 (0.6-1.4) mg/dl Est Cr Clr Drug Dosing 65.3 ml/min Est GFR ( Amer) 73.5 ml/min Est GFR (Non-Af Amer) 63.4 ml/min BUN/Creatinine Ratio 17.0 (10-20) Glucose 77 (70-99) mg/dl Calcium 9.1 (8.5-10.1) mg/dl Total Bilirubin 0.8 (0.2-1) mg/dl AST 29 (15-37) U/L ALT 28 (12-78) U/L Alkaline Phosphatase 107 (45-117) U/L Troponin I 0.023 (0-0.045) ng/ml Total Protein 6.9 (6.4-8.2) gm/dl Albumin 3.6 (3.4-5.0) gm/dl Globulin 3.3 (2.5-4.0) gm/dl Albumin/Globulin Ratio 1.1 (0.9-2) COVID-19 Eval Order Covid19 at [facility] SARS-CoV-2 (PCR) NEGATIVE (Negative) Blood Type Antibody Screen Administered Medications Sodium Chloride (Nss 1000ml) 1,000 mls @ 100 mls/hr IV .Q10H CHRISTIANO Stop: 02/10/21 23:58 Last Admin: 02/10/21 14:30 Dose: 100 mls/hr Documented by: [id number] Discontinued Medications Sodium Chloride (Nss) 500 mls @ 999 mls/hr IV .Q31M CHRISTIANO Stop: 02/10/21 10:45 Last Infusion: 02/10/21 11:22 Dose: 0 mls/hr Documented by: [id number] Admin: 02/10/21 10:29 Dose: 999 mls/hr Documented by: [id number] Pantoprazole Sodium 80 mg/ (Dextrose) 100 mls @ 400 mls/hr IV NOW ONE Stop: 02/10/21 10:17 Last Infusion: 02/10/21 10:32 Dose: 0 mls/hr Documented by: [id number] Admin: 02/10/21 10:16 Dose: 400 mls/hr Documented by: [id number] Famotidine (Pepcid 20mg Iv Push) 20 mg in 5 mls @ 2.5 mls/min IV NOW STA Stop: 02/10/21 10:04 Last Admin: 02/10/21 10:31 Dose: 2.5 mls/min Documented by: [id number] Ioversol (Optiray 320 100ml) 93 ml IV ONCE ONE Stop: 02/10/21 10:57 Last Admin: 02/10/21 10:56 Dose: 93 ml Documented by: [id number] Imaging Data Radiologist's Impression: Abdomen/Pelvis CT 02/10/21 10:[address] WITH IV CONTRAST CT DOSE: 1050.56 mGy.cm HISTORY: Acute lower GI bleed lower gi bleeding TECHNIQUE: Multiaxial CT images of the abdomen and pelvis were performed following the IV administration of 93 cc of Optiray, A dose lowering technique was utilized adhering to the principles of ALARA. COMPARISON STUDY: CT abdomen and pelvis 10/26/2018 FINDINGS: Moderate cardiomegaly. Coronary artery calcifications. Mild subsegmental dependent bibasilar atelectasis with air trapping. No pneumatosis or pneumoperitoneum. The spleen, pancreas and left adrenal gland are unremarkable. Intermediate density 1.3 cm right adrenal gland nodule is u nchanged from comparison and likely benign. Mild gallbladder distention. No CT evidence of acute cholecystitis. Scattered hypodense hepatic foci measuring up to 7 mm are incompletely characterized however suggests probable cysts and are also unchanged from comparison. Patency of the hepatic and portal veins. Subcentimeter hypodense foci the bilateral kidneys suggest probable cyst. 1.37 mm cyst of the inferior pole right kidney. No hydronephrosis. 3 mm parenchymal calcification of the inferior pole left kidney on image 227 is unchanged. Mild prostamegaly. Urinary bladder wall thickening with partial distention. Postoperative changes of the right inguinal canal. Atherosclerosis of the abdominal aorta and iliac arteries. There is no adenopathy. No bowel obstruction or bowel wall thickening. Colonic diverticulosis. Partially calcified 2.[address] structures in the abdominal left lower quadrant on image 335 is unchanged and likely benign. Mild fecal retention. Normal appendix. No ascites or mesenteric inflammation. Degenerative changes of the spine, pelvis and hips. No acute fracture. IMPRESSION: 1. No acute intra-abdominal or intrapelvic abnormality. 2. Colonic diverticulosis. 3. Prostamegaly with findings suggestive of chronic bladder outlet obstruction. 4. Additional findings as above. ACT 112: Negative or not required by law. The above report was generated using voice recognition software. It may contain grammatical, syntax or spelling errors. Electronically signed by: Ambrocio Jara M.D. 02/10/2021 11:49 AM Discharge Plan Visit Data Chief Complaint: Rectal Pain Stated Complaint: BLOOD IN STOOL ED Provider: Kimo Sandoval Discharge Problem: Rectal bleeding, Diverticula of colon, Coagulopathy Patient Disposition: Admitted As Inpatient Condition: Fair Discharge Instructions Interventions: ED Discharge Assessment Last Done: 02/10/21 13:47
[2021-02-10] MEDS ORDERED: SODIUM CHLORIDE 0.9% 500 ML IV SCH (10:15)
[2021-02-10 10:21] LABS: Basophils # (auto) 0.04 K/uL (0-0.2); Basophils % (auto) 0.9 %; Eosinophils # (auto) 0.06 K/uL (0-0.5); Eosinophils % (auto) 1.3 %; Hematocrit (blood only) 43.9 % (42-52); Hemoglobin 14.5 g/dL (14.0-18.0); Immature Granulocytes # (auto) 0.02 K/uL (0.00-0.02); Immature Granulocytes % (auto) 0.4 %; Lymphocytes # (auto) 0.63 K/uL (1.2-3.4); Lymphocytes % (auto) 13.4 %; Mean Corpuscular Hemoglobin 31.7 pg (25-34); Mean Corpuscular Volume 96.1 fL (80-100); Mean Platelet Volume 9.2 fL (7.4-10.4); Monocytes # (auto) 0.64 K/uL (0.11-0.59); Monocytes % (auto) 13.6 %; Neutrophils % (auto) 70.4 %; Platelet Count 270 K/uL (130-400); RDW Coefficient of Variation 13.7 % (11.5-14.5); RDW Standard Deviation 48.1 fL (36.4-46.3); Red Blood Count 4.57 M/uL (4.7-6.1); White Blood Count 4.69 K/uL (4.8-10.8)
[2021-02-10 10:38] LABS: Albumin Level 3.6 gm/dl (3.4-5.0); Calcium 9.1 mg/dl (8.5-10.1); Creatinine Clr Calc Pharmacy 65.3 ml/min; Est GFR (African American) 73.5 ml/min; Est GFR (Non-African American) 63.4 ml/min; Potassium 3.7 mmol/L (3.5-5.1)
[2021-02-10 10:43] LABS: Albumin Globulin Ratio 1.1 (0.9-2); Bilirubin,Total 0.8 mg/dl (0.2-1); Globulin 3.3 gm/dl (2.5-4.0); Total Protein 6.9 gm/dl (6.4-8.2); Troponin I 0.023 ng/ml (0-0.045)
[2021-02-10 10:44] LABS: Partial Thromboplastin Time 27.2 Seconds (21.0-31.0); Prothrombin Time 10.6 Seconds (9.0-12.0)
[2021-02-10] MEDS ORDERED: OPTIRAY 320 100ml IV ONE (10:56)
--- NOTE | 2021-02-10 11:51 | CT Scan Report ---
ABDOMEN AND PELVIS CT WITH IV CONTRAST CT DOSE: 1050.56 mGy.cm HISTORY: Acute lower GI bleed lower gi bleeding TECHNIQUE: Multiaxial CT images of the abdomen and pelvis were performed following the IV administrat ion of 93 cc of Optiray, A dose lowering technique was utilized adhering to the principles of ALARA. COMPARISON STUDY: CT abdomen and pelvis 10/26/2018 FINDINGS: Moderate cardiomegaly. Coronary artery calcifications. Mild subsegmental dependent bibasila r atelectasis with air trapping. No pneumatosis or pneumoperitoneum. The spleen, pancreas and left ad renal gland are unremarkable. Intermediate density 1.3 cm right adrenal gland nodule is unchanged fro m comparison and likely benign. Mild gallbladder distention. No CT evidence of acute cholecystitis. S cattered hypodense hepatic foci measuring up to 7 mm are incompletely characterized however suggests probable cysts and are also unchanged from comparison. Patency of the hepatic and portal veins. Subcentimeter hypodense foci the bilateral kidneys suggest probable cyst. 1.37 mm cyst of the inferio r pole right kidney. No hydronephrosis. 3 mm parenchymal calcification of the inferior pole left kidn ey on image 227 is unchanged. Mild prostamegaly. Urinary bladder wall thickening with partial distent ion. Postoperative changes of the right inguinal canal. Atherosclerosis of the abdominal aorta and il iac arteries. There is no adenopathy. No bowel obstruction or bowel wall thickening. Colonic diverticulosis. Partially calcified 2.[address] str uctures in the abdominal left lower quadrant on image 335 is unchanged and likely benign. Mild fecal retention. Normal appendix. No ascites or mesenteric inflammation. Degenerative changes of the spine, pelvis and hips. No acute fracture. IMPRESSION: 1. No acute intra-abdominal or intrapelvic abnormality. 2. Colonic diverticulosis. 3. Prostamegaly with findings suggestive of chronic bladder outlet obstruction. 4. Additional findings as above. ACT 112: Negative or not required by law. The above report was generated using voice recognition software. It may contain grammatical, syntax o r spelling errors. Electronically signed by: Ambrocio Jara M.D. 02/10/2021 11:49 AM
--- NOTE | 2021-02-10 11:56 | History & Physical Report ---
Date of Service February 10, 2021 Assessment & Plan (1) Lower GI bleed: Plan: Patient presented with painless rectal bleeding likely lower GI bleed most likely diverticular is because it is painless with less likely be ischemic globin is stable at this time. We will check serial hemoglobins. CT scan imaging on presentation shows diverticular to low cyst without diverticulitis. Patient typically takes Eliquis for atrial fibrillation which will be on hold. Patient given a liter of crystalloid on admission. There is no history of heart failure discussion and Dr. Paige's record of 08/15/2020 states normal LV function mild LVH and moderate aortic stenosis Patient had GI consultation in the morning to discuss if colonoscopy is warranted. (2) Atrial fibrillation: Plan: Patient typically sees Dr. Paige that is why he is on the Eliquis therapy, typically not requiring rate controlling medications. The patient had a event monitor in August 2020 showing him to be in atrial fibrillation 68% of the time. EKG on admission shows sinus rhythm (3) Hypertension: Plan: Patient typically takes amlodipine and losartan days will be continued (4) Hepatic steatosis: Plan: Patient typically takes her atorvastatin but does not have a restricted diet at home (5) BPH with obstruction/lower urinary tract symptoms: Plan: Patient has evidence of enlarged prostate on CT scan with findings suggestive of chronic bladder outlet obstruction. He does corroborate this with physical symptoms of frequent urinations especially at night. He has never seen urology. He is open to initiating medication if need be. Will not start this on admission due to his concern for his volume status given his lower GI bleeding (6) Depression with anxiety: Plan: Patient continues on paroxetine (7) DVT prophylaxis: Plan: Chemoprophylaxis is contraindicated continues on SCDs Patient is a full code by his decision (8) Aortic aneurysm: Plan: Aortic aneurysm 4.[address] Paige in July 2020 History of Present Illness Primary Care Provider: Nova Rousseau DO The patient is a 75-year-old male who presents with several days of rectal bleeding. He has no abdominal pain. Patient takes Eliquis for atrial fibrillation typically followed by Dr. Paige. He did not take his dose on the morning of admission. Patient although having diarrhea for the last several days did not have any bloody diarrhea until 1 day prior to admission. Despite having diarrhea for last few days he says he is been able to eat and drink appropriately. He is making good urine although sometimes with symptoms of urinary urgency and then decreased urine output. This a.m., his underwear and the bed were covered in blood. Emergency room physician examination the ER showed maroon stool on rectal examination. Patient's had no fever or focal abdominal pain as mentioned. The patient says he may have had a colonoscopy years ago by Dr. Main who is previously with [facility] physician group Allergies Allergy/AdvReac Type Severity Reaction Status Date / Time baclofen Allergy Verified 02/03/21 10:33 cyclobenzaprine Allergy Verified 02/03/21 10:33 [From Flexeril] doxazosin Allergy Verified 02/03/21 10:33 doxycycline Allergy Verified 02/03/21 10:33 duloxetine Allergy Verified 02/03/21 10:33 gabapentin Allergy Verified 02/03/21 10:33 lisinopril Allergy Verified 02/03/21 10:33 naproxen Allergy Verified 02/03/21 10:33 nortriptyline [From Pamelor] Allergy Verified 02/03/21 10:33 oxcarbazepine Allergy Verified 02/03/21 10:33 Penicillins Allergy Verified 02/03/21 10:33 Home Medications Medication Instructions Recorded Confirmed Type acetaminophen 500 mg tablet 1,000 mg PO TID PRN #90 tab 11/18/18 02/03/21 Rx hydrochlorothiazide 25 mg tablet 25 mg PO DAILY #90 tab 05/13/20 02/03/21 Rx losartan 100 mg tablet 100 mg PO DAILY #90 tab 05/20/20 02/03/21 Rx amlodipine 5 mg tablet 5 mg PO DAILY #90 tab 07/19/20 02/03/21 Rx atorvastatin 40 mg tablet 40 mg PO DAILY #90 tab 08/22/20 02/03/21 Rx paroxetine HCl 40 mg tablet 40 mg PO DAILY #90 tab 10/15/20 02/03/21 Rx walk in bath tub #1 ea 12/27/20 02/03/21 Rx potassium chloride 20 mEq 20 meq PO DAILY #90 tab 01/14/21 02/03/21 Rx tablet,extended release rivaroxaban 20 mg tablet (Xarelto) 20 mg PO DAILY #90 tab 01/15/21 02/03/21 Rx cholecalciferol (vitamin D3) 50 2,000 unit PO DAILY #90 cap 02/03/21 02/03/21 Rx mcg (2,000 unit) capsule Past Med/Surg History Medical History (Updated 02/10/21 @ 12:30 by Alexander Good MD) Aneurysm, thoracic aortic Aortic atherosclerosis Aortic stenosis, moderate Atrial fibrillation Cervical disc disease Chronic sinusitis Cognitive disorder Coronary artery calcification Depression with anxiety Dyslipidemia Glaucoma Hearing loss Hepatic steatosis History of central retinal vein occlusion History of pilonidal cyst Hypertension Lower urinary tract symptoms (LUTS) Lumbar spinal stenosis Mitral regurgitation Osteoarthritis PAC (premature atrial contraction) Sleep apnea Trigeminal neuralgia Vitamin D deficiency Surgical History H/O cataract extraction (2013) History of cochlear implant (01/12/12) BILATERAL History of umbilical hernia repair S/P foot surgery, right (12/2010) removal of heel spur S/P laser trabeculoplasty of eye (10/2014) b/l S/P nasal endoscopy with nasal polypectomy (2011) S/P rotator cuff repair b/l shoulders Family History Mother No pertinent family history Other Hypertension Denies family history of Ovarian cancer Prostate cancer Diabetes Myocardial infarction Breast cancer Colorectal cancer Cancer Social History Smoking Status: Never smoker Second Hand Exposure: No; Hx Alcohol Use: No Hx Substance Use: No Preferred Language: Czech Communication Ability: Effective Visual Impairment: No Limitations Hearing Ability: Cochlear Implant 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 Coffee 1 cup per day.) during the past year weight has: remained stable Dental Care, Regularly: No Physical Activity Frequency: Does not Exercise Seatbelt Use: sometimes Sunscreen Use: No Review of Systems Review of Systems: Mild distress and fatigue no headache, no visual changes patient has bilateral cochlear implants no speech or swallowing issues no chest pain, pressure or palpitations no shortness of breath, cough or wheezes no abdominal pain, nausea or vomiting, maroon bloody diarrhea no dysuria, hematuria or frequency no focal joint pain or swelling no back pain, CVA tenderness or radicular pain no bruising, bleeding or rashes no focal signs of weakness or numbness or altered sensation no complaints of anxiety or depression.. Physical Exam Physical Exam: The patient appeared well nourished and normally developed. Vital signs as documented. Head exam is normocephalic atraumatic Neck is without JVD, thyromegaly, or carotid bruits. Lungs are clear to auscultation, no focal loss of breath sounds Cardiac exam, Rhythm is regular.. Systolic ejection murmur heard best at the base although having evidence of both aortic and mitral problems on previous documentation Abdominal exam reveals normal bowel sounds, soft non tender, no masses particularly no left lower quadrant discomfort Extremities are nonedematous and both pedal pulses are present Neurologic exam is alert and oriented, no focal loss of strength or sensation Skin is without bruises or rashes Psychologically is without concerns for anxiety or depression Results & Data Results & Data ([facility]) Vital Signs (Past 12 Hours) Vital Signs Temp Pulse Resp BP Pulse Ox 02/10/21 10:30 65 16 131/80 95 02/10/21 10:10 98 02/10/21 10:00 75 16 133/82 97 02/10/21 09:04 98.1 F 79 18 122/[address] scan abdomen pelvis 02/10/21 IMPRESSION: 1. No acute intra-abdominal or intrapelvic abnormality. 2. Colonic diverticulosis. 3. Prostamegaly with findings suggestive of chronic bladder outlet obstruction. PG Care Time/CCT Total # of Minutes Spent Total Time Spent with Patient: Total time spent is greater than 50% in coordination of care (as documented) at patient's floor/unit and/or counseling patient: Coding Level of Care Code 81157 Initial Inpt Care Lvl 3 Diagnoses Atrial fibrillation I48.91 Hypertension I10 Hepatic steatosis K76.0 Lower GI bleed K92.2 BPH with obstruction/lower urinary tract symptoms N40.1; N13.8 Depression with anxiety F41.8 DVT prophylaxis Z29.9 Aortic aneurysm I71.9
--- NOTE | 2021-02-10 13:40 | Electrocardiogram Report ---
Test Reason : Blood Pressure : / mmHG Vent. Rate : 072 BPM Atrial Rate : 072 BPM P-R Int : 210 ms QRS Dur : 096 ms QT Int : 424 ms P-R-T Axes : 061 037 029 degrees QTc Int : 464 ms Poor data quality, interpretation may be adversely affected Sinus rhythm with 1st degree A-V block Abnormal ECG When compared with ECG of 12-JAN-2018 12:15, T wave inversion now evident in Anterior leads Confirmed by Yoni Blake ([id number]) on 02/10/2021 1:40:15 PM Referred By: REFERRED SELF Confirmed By:Yoni Blake
[2021-02-10] MEDS ORDERED: ONDANSETRON INJ 2 MG/ML 2 ML VIAL IV PRN (13:59)
[2021-02-10] MEDS ORDERED: SODIUM CHLORIDE 0.9% 1000ML 1,000 ML IV SCH (13:59)
[2021-02-10] MEDS ORDERED: ACETAMINOPHEN 500 MG TAB PO PRN (14:10)
--- NOTE | 2021-02-10 15:59 | Gastrointestinal Consultation ---
Date of Consultation February 10, 2021 Assessment & Plan (1) Chronic anticoagulation: (2) Painless rectal bleeding: Continue clear liquid diet Continue supportive care Bowel prep tonight Colonoscopy in the AM History of Present Illness Reason for Consultation: Rectal bleeding Attending Physician: Wilver West History of Present Illness 75 yo CM who presented to the ER with complaints of rectal bleeding. He denied any abdominal pain, and states that he had been bleeding for approximately 2-3 days, with higher output of blood just prior to arrival. He is on Eliquis therapy for a-fib. Upon arrival to the ER, his H/H was noted to be 14.5 and 43.9. He was subsequently admitted and given IVF and clear liquid diet. He has been hemodynamically stable since his arrival. At the time I saw him, he was doing well, and had just eaten a clear liquid lunch. He denies any fevers, chills, nausea, vomiting, hematemesis, melena, or hematochezia. He further denies any abdominal pain, GERD, dysphagia, or odynophagia, and states that he has not had a BM today. He denies any further complaints at this time. Allergies Allergy/AdvReac Type Severity Reaction Status Date / Time baclofen Allergy Verified 02/11/21 11:29 cyclobenzaprine Allergy Verified 02/11/21 11:29 [From Flexeril] doxazosin Allergy Verified 02/11/21 11:29 doxycycline Allergy Verified 02/11/21 11:29 duloxetine Allergy Verified 02/11/21 11:29 gabapentin Allergy Verified 02/11/21 11:29 lisinopril Allergy Verified 02/11/21 11:29 naproxen Allergy Verified 02/11/21 11:29 nortriptyline [From Pamelor] Allergy Verified 02/11/21 11:29 oxcarbazepine Allergy Verified 02/11/21 11:29 Penicillins Allergy Verified 02/11/21 11:29 Home Medications Medication Instructions Recorded Confirmed Type acetaminophen 500 mg tablet 1,000 mg PO TID PRN #90 tab 11/18/18 02/10/21 Rx hydrochlorothiazide 25 mg tablet 25 mg PO DAILY #90 tab 05/13/20 02/10/21 Rx losartan 100 mg tablet 100 mg PO DAILY #90 tab 05/20/20 02/10/21 Rx amlodipine 5 mg tablet 5 mg PO DAILY #90 tab 07/19/20 02/10/21 Rx atorvastatin 40 mg tablet 40 mg PO DAILY #90 tab 08/22/20 02/10/21 Rx paroxetine HCl 40 mg tablet 40 mg PO DAILY #90 tab 10/15/20 02/10/21 Rx potassium chloride 20 mEq 20 meq PO DAILY #90 tab 01/14/21 02/10/21 Rx tablet,extended release rivaroxaban 20 mg tablet (Xarelto) 20 mg PO DAILY #90 tab 01/15/21 02/10/21 Rx cholecalciferol (vitamin D3) 50 2,000 unit PO DAILY #90 cap 02/03/21 02/10/21 Rx mcg (2,000 unit) capsule Patient History Medical History Aneurysm, thoracic aortic Aortic atherosclerosis Aortic stenosis, moderate Atrial fibrillation Cervical disc disease Chronic sinusitis Cognitive disorder Coronary artery calcification Depression with anxiety Dyslipidemia Glaucoma Hearing loss Hepatic steatosis History of central retinal vein occlusion History of pilonidal cyst Hypertension Lower urinary tract symptoms (LUTS) Lumbar spinal stenosis Mitral regurgitation Osteoarthritis PAC (premature atrial contraction) Sleep apnea Trigeminal neuralgia Vitamin D deficiency Surgical History H/O cataract extraction (2013) History of cochlear implant (01/12/12) BILATERAL History of umbilical hernia repair S/P foot surgery, right (12/2010) removal of heel spur S/P laser trabeculoplasty of eye (10/2014) b/l S/P nasal endoscopy with nasal polypectomy (2011) S/P rotator cuff repair b/l shoulders Family History Mother No pertinent family history Other Hypertension Denies family history of Ovarian cancer Prostate cancer Diabetes Myocardial infarction Breast cancer Colorectal cancer Cancer Social History Smoking Status: Never smoker Second Hand Exposure: No; Hx Alcohol Use: No Hx Substance Use: No Preferred Language: Italian Communication Ability: Effective Visual Impairment: No Limitations Hearing Ability: Cochlear Implant 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 Coffee 1 cup per day.) during the past year weight has: remained stable Dental Care, Regularly: No Physical Activity Frequency: Does not Exercise Seatbelt Use: sometimes Sunscreen Use: No Assistive Devices: Hearing Aid - Bilateral Assistive Devices Comment: bilateral cochlear implants Review of Systems Constitutional: as per Subjective / HPI Eyes: as per Subjective / HPI Ear, Nose, Mouth, Throat: as per Subjective / HPI Respiratory: as per Subjective / HPI Cardiovascular: as per Subjective / HPI Gastrointestinal: as per Subjective / HPI Musculoskeletal: as per Subjective / HPI Integumentary: as per Subjective / HPI Neurologic: as per Subjective / HPI Psychiatric: as per Subjective / HPI Endocrine: as per Subjective / HPI Hematologic / Lymphatic: as per Subjective / HPI Allergy / Immunological: as per Subjective / HPI Physical Exam Constitutional: WD/WN, vitals as above Eyes: + anicteric sclerae ENMT: external ear and nose normal, oropharynx normal Neck: trachea midline, no thyromegaly Respiratory: normal respiratory effort, lungs clear to auscultation Cardiovascular: RRR, no murmur, no edema Gastrointestinal (Abdomen): normal bowel sounds, soft, nontender, no hepatosplenomegaly Skin: no rashes, warm and dry Psychiatric: A+Ox3, euthymic affect Results & Data ([facility]) Vital Signs (Past 12 Hours) Vital Signs Temp Pulse Pulse Resp BP BP Pulse Ox 02/10/21 14:45 36.5 C 71 18 114/77 90 02/10/21 13:57 36.5 C 71 18 114/77 90 02/10/21 11:30 80 25 H 143/93 H 95 02/10/21 11:06 83 28 H 134/96 95 02/10/21 10:30 65 16 131/80 95 02/10/21 10:10 98 02/10/21 10:00 75 16 133/82 97 02/10/21 09:04 36.7 C 79 18 122/79 97 PG Care Time/CCT Total # of Minutes Spent Total Time Spent with Patient: Total time spent is greater than 50% in coordination of care (as documented) at patient's floor/unit and/or counseling patient: Coding Level of Care Code 25922 Initial Inpt Care Lvl 3 Diagnoses Chronic anticoagulation Z79.01 Painless rectal bleeding K62.5
[2021-02-10] MEDS: PANTOprazole 40 MG in SYRINGE 0 ML IV SCH (19:52)
[2021-02-10] MEDS ORDERED: LAVAGE SOLUTION 4000ML PO SCH (20:00)
[2021-02-11 07:16] LABS: Calcium 8.6 mg/dl (8.5-10.1); Creatinine Clr Calc Pharmacy 68.4 ml/min; Est GFR (African American) 77.6 ml/min; Potassium 3.3 mmol/L (3.5-5.1)
[2021-02-11] MEDS: PANTOprazole 40 MG in SYRINGE 0 ML IV SCH ×2 (07:18→19:51)
[2021-02-11] MEDS ORDERED: [UNRECOGNIZED DRUG - SUPPLY] EXT SCH (09:00)
--- NOTE | 2021-02-11 09:22 | History & Physical Bridge Note ---
Date of Service February 11, 2021 History & Physical Bridge Note I have examined the patient, reviewed the History & Physical and in the interval since the performance of the History & Physical I have noted the following changes of clinical significance: no changes noted. Patient has been NPO since prior to midnight with the exception of his bowel preparation. He reports liquid clear and bloody (bright red and dark red) stools. He denies abdominal pain. H/H is currently 13.6/43.9. Keep NPO and proceed with colonoscopy today for further assessment of rectal bleeding. Supervising Physician Co-Signing Physician Notes Agree with ELMO Lauren as above Abd: Soft, NT, ND, +BS Continue current therapy and supportive care Proceed with Colonoscopy today
[2021-02-11] MEDS: POTASSIUM CHLORIDE CRTAB 20 MEQ TABCR PO SCH (09:52)
[2021-02-11] MEDS: ATORVASTATIN 40 MG TAB PO SCH (09:53)
[2021-02-11] MEDS: PARoxetine HCL 20 MG TAB PO SCH (09:53)
[2021-02-11] MEDS: amLODIPine BESYLATE 5 MG TAB PO SCH (09:53)
[2021-02-11] MEDS: LOSARTAN POTASSIUM 50 MG TAB PO SCH (09:53)
--- NOTE | 2021-02-11 11:40 | Anesthesiology Consultation ---
Date of Service February 11, 2021 Assessment & Plan (1) Encounter for pre-operative examination: Chart Review Chart Review: Acceptable Risk for Surgery History Surgery Operation Date: 02/11/21 16:30 Proposed Procedures p Colonoscopy Dr. Keshawn Liao, DO Height/Weight Height: 5 ft 8 in Weight: 97.7 kg Allergies Allergy/AdvReac Type Severity Reaction Status Date / Time baclofen Allergy Verified 02/11/21 11:29 cyclobenzaprine Allergy Verified 02/11/21 11:29 [From Flexeril] doxazosin Allergy Verified 02/11/21 11:29 doxycycline Allergy Verified 02/11/21 11:29 duloxetine Allergy Verified 02/11/21 11:29 gabapentin Allergy Verified 02/11/21 11:29 lisinopril Allergy Verified 02/11/21 11:29 naproxen Allergy Verified 02/11/21 11:29 nortriptyline [From Pamelor] Allergy Verified 02/11/21 11:29 oxcarbazepine Allergy Verified 02/11/21 11:29 Penicillins Allergy Verified 02/11/21 11:29 Medications Home Medications Medication Instructions Recorded Confirmed Last Taken acetaminophen 500 mg tablet 1,000 mg PO TID PRN #90 tab 11/18/18 02/10/21 08/07/19 hydrochlorothiazide 25 mg tablet 25 mg PO DAILY #90 tab 05/13/20 02/10/21 02/09/21 losartan 100 mg tablet 100 mg PO DAILY #90 tab 05/20/20 02/10/21 02/09/21 amlodipine 5 mg tablet 5 mg PO DAILY #90 tab 07/19/20 02/10/21 02/09/21 atorvastatin 40 mg tablet 40 mg PO DAILY #90 tab 08/22/20 02/10/21 02/09/21 paroxetine HCl 40 mg tablet 40 mg PO DAILY #90 tab 10/15/20 02/10/21 02/09/21 potassium chloride 20 mEq 20 meq PO DAILY #90 tab 01/14/21 02/10/21 02/09/21 tablet,extended release rivaroxaban 20 mg tablet (Xarelto) 20 mg PO DAILY #90 tab 01/15/21 02/10/21 02/09/21 cholecalciferol (vitamin D3) 50 2,000 unit PO DAILY #90 cap 02/03/21 02/10/21 02/09/21 mcg (2,000 unit) capsule Active Medications Generic Name Dose Route Start Last Admin Trade Name Freq PRN Reason Stop Dose Admin Amlodipine Besylate 5 mg 02/11/21 09:00 02/11/21 09:53 Amlodipine Besylate 5 Mg Tab PO 03/13/21 08:59 5 mg DAILY CHRISTIANO Administration Atorvastatin Calcium 40 mg 02/11/21 09:00 02/11/21 09:53 Atorvastatin 40 Mg Tab PO 03/13/21 08:59 40 mg DAILY CHRISTIANO Administration Pantoprazole Sodium 40 mg/ 10 mls @ 5 mls/min 02/10/21 21:00 02/11/21 07:18 Syringe IV 03/12/21 20:59 5 mls/min BID CHRISTIANO Administration Losartan Potassium 100 mg 02/11/21 09:00 02/11/21 09:53 Losartan Potassium 50 Mg Tab PO 03/13/21 08:59 100 mg DAILY CHRISTIANO Administration Paroxetine HCl 40 mg 02/11/21 09:00 02/11/21 09:53 Paroxetine Hcl 20 Mg Tab PO 03/13/21 08:59 40 mg DAILY CHRISTIANO Administration Potassium Chloride 20 meq 02/11/21 09:00 02/11/21 09:52 Potassium Chloride Crtab 20 Meq Tabcr PO 03/13/21 08:59 20 meq DAILY CHRISTIANO Administration Past Medical History Medical History Aneurysm, thoracic aortic Aortic atherosclerosis Aortic stenosis, moderate Atrial fibrillation Cervical disc disease Chronic sinusitis Cognitive disorder Coronary artery calcification Depression with anxiety Dyslipidemia Glaucoma Hearing loss Hepatic steatosis History of central retinal vein occlusion History of pilonidal cyst Hypertension Lower urinary tract symptoms (LUTS) Lumbar spinal stenosis Mitral regurgitation Osteoarthritis PAC (premature atrial contraction) Sleep apnea Trigeminal neuralgia Vitamin D deficiency Past Family History Family History Mother No pertinent family history Other Hypertension Denies family history of Ovarian cancer Prostate cancer Diabetes Myocardial infarction Breast cancer Colorectal cancer Cancer Past Surgical History Surgical History H/O cataract extraction (2013) History of cochlear implant (01/12/12) BILATERAL History of umbilical hernia repair S/P foot surgery, right (12/2010) removal of heel spur S/P laser trabeculoplasty of eye (10/2014) b/l S/P nasal endoscopy with nasal polypectomy (2011) S/P rotator cuff repair b/l shoulders Social History Smoking Status: Never smoker Hx Alcohol Use: No Hx Substance Use: No Physical Exam Vital Signs Last Vital Signs Temp 36.5 C 02/11/21 11:12 Pulse 78 02/11/21 11:12 Resp 18 02/11/21 11:12 BP 138/74 02/11/21 11:12 Pulse Ox 93 02/11/21 11:12 Testing Laboratory Results 02/10/21 17:00 02/11/21 06:13 PT 10.6 Seconds (9.0-12.0) 02/10/21 10:06 INR 1.0 (0.9-1.1) 02/10/21 10:06 APTT 27.2 Seconds (21.0-31.0) 02/10/21 10:06 Blood Type A Positive 02/10/21 10:06 Antibody Screen NEGATIVE 02/10/21 10:06
[2021-02-11] MEDS ORDERED: LIDOCAINE 2% 2 ML VIAL/AMP(20MG/ML) INFIL ONE (12:13)
[2021-02-11] MEDS ORDERED: PROPOFOL IV EMULSION 10 MG/ML 20 ML VIAL IV ONE (12:13)
[2021-02-11] MEDS ORDERED: PHENYLEPHRINE 100MCG/ML 5ML SYR ONE (12:55)
--- NOTE | 2021-02-11 12:57 | GI REPORT ---
Patient Name: Yimi Snyder Procedure Date: 02/11/2021 12:14 PM Date of : 1945 Admit Type: Inpatient Age: 75 Gender: Male Attending MD: Adam Liao DO Procedure: Colonoscopy Providers: Adam Liao DO Referring MD: Chente Segal M.D. Indications: Hematochezia Medicines: Monitored Anesthesia Care Complications: No immediate complications. Estimated Blood Loss: Estimated blood loss: none. Procedure: Pre-Anesthesia Assessment: - Prior to the procedure, a History and Physical was performed, and patient medications and allergies were reviewed. The patient's tolerance of previous anesthesia was also reviewed. The risks and benefits of the procedure and the sedation options and risks were discussed with the patient. All questions were answered, and informed consent was obtained. Prior Anticoagulants: The patient has taken Xarelto (rivaroxaban), last dose was 2 days prior to procedure. ASA Grade Assessment: III - A patient with severe systemic disease. After reviewing the risks and benefits, the patient was deemed in satisfactory condition to undergo the procedure. After I obtained informed consent, the scope was passed under direct vision. Throughout the procedure, the patient's blood pressure, pulse, and oxygen saturations were monitored continuously. The Loaner was introduced through the anus and advanced to the cecum, identified by appendiceal orifice and ileocecal valve. The colonoscopy was performed without difficulty. The patient tolerated the procedure well. The quality of the bowel preparation was good. The ileocecal valve, appendiceal orifice, and rectum were photographed. Findings: The perianal and digital rectal examinations were normal. A 7 mm polyp was found in the cecum. The polyp was sessile. The polyp was removed with a hot snare. Resection and retrieval were complete. Multiple small-mouthed diverticula were found in the sigmoid colon. A localized area of moderately ulcerated mucosa was found in the rectum. Biopsies were taken with a cold forceps for histology. Non-bleeding internal hemorrhoids were found during retroflexion. The hemorrhoids were small. Impression: - One 7 mm polyp in the cecum, removed with a hot snare. Resected and retrieved. - Diverticulosis in the sigmoid colon. - Ulcerated mucosa in the rectum. Biopsied. - Non-bleeding internal hemorrhoids. Recommendation: - Resume previous diet. - Continue present medications. - Repeat colonoscopy for surveillance based on pathology results. - Return to primary care physician as previously scheduled. Adam PilarOdette Liao, DO 02/11/2021 12:56:41 PM This report has been signed electronically. Note Initiated On: 02/11/2021 12:14 PM Number of Addenda: 0 I attest to the content of the Intraoperative Record and orders documented therein, exceptions below {[id number]}
--- NOTE | 2021-02-11 13:13 | Anesthesiology Progress Note ---
Date of Service February 11, 2021 Anesthesia Post Procedure Vital Signs Vital Signs: Temp Pulse Pulse Resp BP Pulse Ox 02/11/21 13:08 76 16 121/78 97 02/11/21 12:53 82 16 119/74 97 02/11/21 11:31 36.5 C 82 18 144/90 H 98 02/11/21 11:12 36.5 C 78 18 138/74 93 02/11/21 07:45 36.4 C L 84 20 149/88 H 96 02/11/21 03:39 36.5 C 78 18 122/84 96 02/10/21 23:29 36.3 C L 82 18 130/85 96 02/10/21 23:05 97 H 02/10/21 18:25 36.6 C 79 20 132/80 94 02/10/21 17:49 75 02/10/21 14:45 36.5 C 71 18 114/77 90 02/10/21 14:15 79 02/10/21 13:57 36.5 C 71 18 114/77 90 Transfer of Care Handoff Completed per policy Notes Mental Status: alert / awake / arousable Patient Amnestic to Procedure: Yes Nausea / Vomiting: adequately controlled Pain: adequately controlled Airway Patency, RR, SpO2: stable & adequate BP & HR: stable & adequate Hydration State: stable & adequate Anesthetic Complications: no major complications apparent
--- NOTE | 2021-02-11 16:21 | Hospitalist Progress Note ---
Date of Service February 11, 2021 Assessment & Plan (1) Lower GI bleed: Plan: Patient presented with painless rectal bleeding likely lower GI bleed most likely diverticular is because it is painless with less likely be ischemic globin is stable at this time. We will check serial hemoglobins. CT scan imaging on presentation shows diverticular to low cyst without diverticulitis. Patient typically takes Eliquis for atrial fibrillation which will be on hold. Patient given a liter of crystalloid on admission. There is no history of heart failure discussion and Dr. Paige's record of 08/15/2020 states normal LV function mild LVH and moderate aortic stenosis Patient will have GI consultation in the morning to discuss if colonoscopy is warranted. Patient seen prior to GI consult. Will closely monitor hemoglobin. likely will hold anticoagulation at discharge. (2) Atrial fibrillation: Plan: Patient typically sees Dr. Paige that is why he is on the Eliquis therapy, typically not requiring rate controlling medications. The patient had a event monitor in August 2020 showing him to be in atrial fibrillation 68% of the time. EKG on admission shows sinus rhythm (3) Hypertension: Plan: Patient typically takes amlodipine and losartan days will be continued (4) Hepatic steatosis: Plan: Patient typically takes her atorvastatin but does not have a restricted diet at home (5) BPH with obstruction/lower urinary tract symptoms: Plan: Patient has evidence of enlarged prostate on CT scan with findings suggestive of chronic bladder outlet obstruction. He does corroborate this with physical symptoms of frequent urinations especially at night. He has never seen urology. He is open to initiating medication if need be. Will not start this on admission due to his concern for his volume status given his lower GI bleeding (6) Depression with anxiety: Plan: Patient continues on paroxetine (7) DVT prophylaxis: Plan: Chemoprophylaxis is contraindicated continues on SCDs Patient is a full code by his decision (8) Aortic aneurysm: Plan: Aortic aneurysm 4.[address] Paige in July 2020 Admission and Anticipated Discharge Date Admission Date: February 10, 2021 Subjective Patient reports feeling well. Awaiting colonoscopy Review of Systems Review of Systems: All systems reviewed & are unremarkable except as noted in HPI & below Physical Exam Physical Exam: The patient appeared well nourished and normally developed. Vital signs as documented. Head exam is normocephalic atraumatic Neck is without JVD, thyromegaly, or carotid bruits. Lungs are clear to auscultation, no focal loss of breath sounds Cardiac exam, Rhythm is regular.. Systolic ejection murmur heard best at the base although having evidence of both aortic and mitral problems on previous documentation Abdominal exam reveals normal bowel sounds, soft non tender, no masses particularly no left lower quadrant discomfort Extremities are nonedematous and both pedal pulses are present Neurologic exam is alert and oriented, no focal loss of strength or sensation Skin is without bruises or rashes Psychologically is without concerns for anxiety or depression Results & Data Results & Data ([facility]) Vital Signs (Past 12 Hours) Vital Signs Temp Pulse Resp BP Pulse Ox 02/11/21 16:10 36.6 C 72 20 113/68 96 02/11/21 13:46 36.5 C 79 143/85 H 97 02/11/21 13:23 70 16 130/76 96 02/11/21 13:08 76 16 121/78 97 02/11/21 12:53 82 16 119/74 97 02/11/21 11:31 36.5 C 82 18 144/90 H 98 02/11/21 11:12 36.5 C 78 18 138/74 93 02/11/21 07:45 36.4 C L 84 20 149/88 H 96 PG Care Time/CCT Total # of Minutes Spent Total Time Spent with Patient: Total time spent is greater than 50% in coordination of care (as documented) at patient's floor/unit and/or counseling patient: Coding Level of Care Code 45019 Subseq Hosp Care Lvl 2 Diagnoses Lower GI bleed K92.2 Atrial fibrillation I48.91 Hypertension I10 Hepatic steatosis K76.0 BPH with obstruction/lower urinary tract symptoms N40.1; N13.8 Depression with anxiety F41.8 DVT prophylaxis Z29.9 Aortic aneurysm I71.9
[2021-02-12 07:32] LABS: Hematocrit (blood only) 40.6 % (42-52); Hemoglobin 13.2 g/dL (14.0-18.0); Mean Corpuscular Hemoglobin 31.6 pg (25-34); Mean Corpuscular Hgb Conc 32.5 g/dL (32-36); Mean Corpuscular Volume 97.1 fL (80-100); Mean Platelet Volume 9.1 fL (7.4-10.4); Platelet Count 216 K/uL (130-400); RDW Standard Deviation 49.5 fL (36.4-46.3); Red Blood Count 4.18 M/uL (4.7-6.1); White Blood Count 5.19 K/uL (4.8-10.8)
[2021-02-12] MEDS: PANTOprazole 40 MG in SYRINGE 0 ML IV SCH (07:39)
[2021-02-12] MEDS: amLODIPine BESYLATE 5 MG TAB PO SCH (07:39)
[2021-02-12] MEDS: ATORVASTATIN 40 MG TAB PO SCH (07:39)
[2021-02-12] MEDS: PARoxetine HCL 20 MG TAB PO SCH (07:39)
[2021-02-12] MEDS: POTASSIUM CHLORIDE CRTAB 20 MEQ TABCR PO SCH (07:39)
[2021-02-12] MEDS: LOSARTAN POTASSIUM 50 MG TAB PO SCH (07:39)
[2021-02-12 08:08] LABS: BUN Creatinine Ratio 11.6 (10-20); Calcium 9.1 mg/dl (8.5-10.1); Creatinine Clr Calc Pharmacy 68.4 ml/min; Est GFR (African American) 77.6 ml/min; Potassium 3.9 mmol/L (3.5-5.1)
--- NOTE | 2021-02-12 09:43 | Gastroenterology Progress Note ---
Date of Service February 12, 2021 Assessment & Plan (1) Rectal bleeding: Plan: Colonoscopy demonstrated rectal inflammation/ulceration. Biopsies are pending. Given clinical and hemodynamic stability, further GI management can be done as an outpatient when biopsies return. In the interim, can utilize Hydrocortisone suppositories BID x 14 days. Admission and Anticipated Discharge Date Admission Date: February 11, 2021 Supervising Physician Co-Signing Physician Notes Agree with ELMO Lauren as above Patient was discharged prior to my evaluation He will followup as an outpatient in our office. Subjective Patient is a 75 yo male with rectal bleeding. H/H stable at 13.2/40.6. Colonoscopy on 02/11/21 indicated some inflammation of the rectum. Biopsies are pending. No new complaints today. Review of Systems Gastrointestinal: no abdominal pain, no diarrhea/loose stools and no blood in stools Physical Exam Constitutional: WD/WN, vitals as above Respiratory: normal respiratory effort Gastrointestinal (Abdomen): normal bowel sounds, soft, nontender, no hepatosplenomegaly Results & Data Results & [facility] ([facility]) Vital Signs (Past 12 Hours) Vital Signs Temp Pulse Pulse Resp BP Pulse Ox 02/12/21 07:28 37.1 C 95 H 18 151/85 H 96 02/12/21 03:06 36.4 C L 94 H 20 119/72 94 02/12/21 00:19 77 02/11/21 23:13 36.7 C 81 18 120/64 95 PG Care Time/CCT Total # of Minutes Spent Total Time Spent with Patient: Total time spent is greater than 50% in coordination of care (as documented) at patient's floor/unit and/or counseling patient: Coding Level of Care Code 34088 Subseq Hosp Care Lvl 2 Diagnoses Rectal bleeding K62.5
[2021-02-12 11:13] VITALS: BP 119/75; TEMP 97.5; O2SAT 95
[2021-02-12 14:14] VITALS: PULSE 72
--- NOTE | 2021-02-12 14:44 | Discharge Summary ---
Date of Service February 12, 2021 Admission HPI Per Admitting Provider The patient is a 75-year-old male who presents with several days of rectal bleeding. He has no abdominal pain. Patient takes Eliquis for atrial fibrillation typically followed by Dr. Paige. He did not take his dose on the morning of admission. Patient although having diarrhea for the last several days did not have any bloody diarrhea until 1 day prior to admission. Despite having diarrhea for last few days he says he is been able to eat and drink appropriately. He is making good urine although sometimes with symptoms of urinary urgency and then decreased urine output. This a.m., his underwear and the bed were covered in blood. Emergency room physician examination the ER showed maroon stool on rectal examination. Patient's had no fever or focal abdominal pain as mentioned. The patient says he may have had a colonoscopy years ago by Dr. Main who is previously with [facility] physician group Principal Diagnosis Lower Gi bleed. Discharge Exam The patient appeared well nourished and normally developed. Vital signs as documented. Head exam is normocephalic atraumatic Neck is without JVD, thyromegaly, or carotid bruits. Lungs are clear to auscultation, no focal loss of breath sounds Cardiac exam, Rhythm is regular.. Systolic ejection murmur heard best at the base although having evidence of both aortic and mitral problems on previous documentation Abdominal exam reveals normal bowel sounds, soft non tender Extremities are nonedematous and both pedal pulses are present Neurologic exam is alert and oriented, no focal loss of strength or sensation Skin is without bruises or rashes Psychologically is without concerns for anxiety or depression Discharge Data Allergies Allergy/AdvReac Type Severity Reaction Status Date / Time baclofen Allergy Verified 02/11/21 11:29 cyclobenzaprine Allergy Verified 02/11/21 11:29 [From Flexeril] doxazosin Allergy Verified 02/11/21 11:29 doxycycline Allergy Verified 02/11/21 11:29 duloxetine Allergy Verified 02/11/21 11:29 gabapentin Allergy Verified 02/11/21 11:29 lisinopril Allergy Verified 02/11/21 11:29 naproxen Allergy Verified 02/11/21 11:29 nortriptyline [From Pamelor] Allergy Verified 02/11/21 11:29 oxcarbazepine Allergy Verified 02/11/21 11:29 Penicillins Allergy Verified 02/11/21 11:29 Consultations 02/10/21 11:48 ED Decision to Admit Stat 02/10/21 14:19 Consult Gastroenterology Routine Procedures Performed Operation Date: 02/11/21 16:30 Actual Procedures p Colonoscopy Polypectomy - Adam Hernandez Case, DO Ordered Studies 02/10/21 10:03 CT abd pelvis IV con only Stat Hospital Course (1) Lower GI bleed: Patient presented with painless rectal bleeding likely lower GI bleed most likely diverticular is because it is painless with less likely be ischemic globin is stable at this time. We will check serial hemoglobins. CT scan imaging on presentation shows diverticular to low cyst without diverticulitis. Patient typically takes Eliquis for atrial fibrillation which will be on hold. Patient required a liter of crystalloid on admission. There is no history of heart failure discussion and Dr. Paige's record of 08/15/2020 states normal LV function mild LVH and moderate aortic stenosis GI was consulted: Colonoscopy demonstrated rectal inflammation/ulceration. Biopsies are pending. Given clinical and hemodynamic stability, further GI management can be done as an outpatient when biopsies return. In the interim, can utilize Hydrocortisone suppositories BID x 14 days. Hemoglobin has been stable, will discharge patient but will hold anticoagulation. (2) Atrial fibrillation: Patient typically sees Dr. Paige that is why he is on the Eliquis therapy, typically not requiring rate controlling medications. The patient had a event monitor in August 2020 showing him to be in atrial fibrillation 68% of the time. EKG on admission shows sinus rhythm Patient will followup with Dr. Paige tomorrow in his office. Will defer decision to restart anticoagulation to Dr. Paige. (3) Hypertension: Patient typically takes amlodipine and losartan days will be continued (4) Hepatic steatosis: Patient typically takes her atorvastatin but does not have a restricted diet at home (5) BPH with obstruction/lower urinary tract symptoms: Patient has evidence of enlarged prostate on CT scan with findings suggestive of chronic bladder outlet obstruction. He does corroborate this with physical symptoms of frequent urinations especially at night. He has never seen urology. He is open to initiating medication if need be. Will not start this on admission due to his concern for his volume status given his lower GI bleeding (6) Depression with anxiety: Patient continues on paroxetine (7) DVT prophylaxis: Chemoprophylaxis is contraindicated continues on SCDs Patient is a full code by his decision (8) Aortic aneurysm: Aortic aneurysm 4.[address] Paige in July 2020 Total Time Total Time Spent Total Time Spent (In Minutes): 32 Discharge Plan Discharge Items Patient Disposition: Home - Self-Care Reason For Visit: LOWER GI BLEED Discharge Diagnosis: lower GI bleed Condition on Discharge: Fair Activity: Resume your previous activity Non-emergency contact: Primary Care Provider Call non-emergency contact if: you have any medication questions Follow-up/Referrals: Nova Rousseau DO [Primary Care Provider] - 02/20/21 10:15 am Diet: Regular Addtl Attending Provider Instructions: You have been hospitalized for an acute medical problem. During your stay at [facility], we have made an effort to correct the problem that brought you to the hospital while keeping you as comfortable as possible. Medications were used to bring your condition under control and your discharge instructions will include directions for any medications you should take after leaving the hospital. Please make sure you see your Primary Care Provider as part of your follow up plan. Colonoscopy demonstrated rectal inflammation/ulceration. Your numbers and labs have been stable. GI management will be done as an outpatient when biopsies return. Pending Studies at Discharge: No Stand-Alone Forms: My [facility], Smoking Cessation Medications and DC Order Prescriptions: New hydrocortisone acetate 25 mg suppository 25 mg DE BID 14 Days Qty: 28 RF: 0 Continued losartan 100 mg tablet 100 mg PO DAILY Qty: 90 RF: 3 amlodipine 5 mg tablet 5 mg PO DAILY Qty: 90 RF: 1 atorvastatin 40 mg tablet 40 mg PO DAILY Qty: 90 RF: 3 paroxetine HCl 40 mg tablet 40 mg PO DAILY Qty: 90 RF: 3 potassium chloride 20 mEq tablet extended release 20 meq PO DAILY Qty: 90 RF: 1 hydrochlorothiazide 25 mg tablet 25 mg PO DAILY Qty: 90 RF: 3 acetaminophen 500 mg tablet 1,000 mg PO TID PRN (Reason: fever or pain) Qty: 90 RF: 5 cholecalciferol (vitamin D3) 50 mcg (2,000 unit) capsule 2,000 unit PO DAILY Qty: 90 RF: 1 Discontinued Xarelto 20 mg tablet 20 mg PO DAILY Qty: 90 RF: 1 Discharge Orders: Discharge Order (Routine); Ordered 02/12/21 Ordered By: Chente Segal Admission Data Admit Date/Time: 02/11/21 16:22 Attending Provider: Chente Segal Admit Provider: Alexander Good Primary Care Provider: Nova Rousseau Other Providers: Alexander Good ; Adam Liao Other Interventions: Discharge Summary Assessment (RN) Last Done: 02/12/21 14:13 Coding Level of Care Code D/C DAY MANAGEMENT >30 MINS Diagnoses Lower GI bleed K92.2 Atrial fibrillation I48.91 Hypertension I10 Hepatic steatosis K76.0 BPH with obstruction/lower urinary tract symptoms N40.1; N13.8 Depression with anxiety F41.8 DVT prophylaxis Z29.9 Aortic aneurysm I71.9
== END 2021-02-12 14:45 | disposition home or self-care (01) | DRG 346 ==
LOC: ED 08:55 → 2N 08:55 → SUATTDRO 12:08 → 2N 13:47

== ENCOUNTER 2022-08-17 11:27 | Inpatient (IN) ==
--- NOTE | 2022-08-17 11:37 | Emergency Department Note ---
Impression & Plan Acute exacerbation of CHF (congestive heart failure), Acute dyspnea, Elevated troponin I level, Elevated brain natriuretic peptide (BNP) level, Hypoxia ED Provider Note NAME: SRI ACEVEDO AGE: 76 SEX: M : 1945 ARRIVES VIA: Ambulance INFORMANT: Patient, ED PROVIDER(S): Fidencio Soto MD CHIEF COMPLAINT: Shortness of breath MEDICAL DECISION MAKING: Patient presents due to concern for worsening LE PND and LE. The patient did have blood work completed and IV was established. The patient was initially hypoxemic at 88% on room air and was placed on supplemental nasal cannula oxygen. The patient's blood work shows Normal white counts hemoglobin of 12.4 which is relatively chronic and stable. Patient's platelet count is unremarkable. Kidney function and electrolytes unremarkable. The patient's initial troponin of 43. BNP is 627. The patient is also noted weight gain just from several days prior. Urinalysis negative for blood or infection. COVID-negative. The patient's chest x-ray does show cardiomegaly and pulmonary vasculature prominence. Patient was ordered Lasix 40 mg IV. Given this with the associated oxygen requirement I did speak the on-call hospitalist service Elise Rubio PA-C and the patient was admitted by Dr. Infante. Critical Care: I have personally spent 35 minutes of critical care time in direct management of this patient. This includes bedside care, interpretation of diagnostic studies, and testing, discussion with consultants, patient, and family members, and other require inpatient management activities. This 35 minutes is in excess of all separately billable procedures. Prior /Outside records reviewed: I did review the patient's last cardiology note with Pal Martino from January 2022. Patient has known history of moderate AAS mitral regurg MVP CAD thoracic aortic aneurysm and A-fib the ascending thoracic aorta was last measured at 4.3 cm per the note. Patient's weight was reviewed from 3 days prior and the patient has creased his weight by 2 kg. Differential diagnosis: Reactive airway disease, pneumonia, pneumothorax, COPD, CHF, infections, cardiac ischemia, pulmonary embolism, musculoskeletal, gastrointestinal, as well as other pathologies. Diagnostics, as interpreted by me: ECG: Sinus, rate of 94, borderline IA, normal QRS, normal axis ST depressions noted anteriorly and laterally. T wave inversion noted anteriorly and inferiorly patient's EKG shows more prominent depression and a new T wave version from comparison March 11, 2021 Cardiac monitoring: An order was placed for continuous cardiac monitoring. The monitor shows a rate of 88 with sinus rhythm. Patient was placed on pulse oximetry Medical decision rules: none Imaging studies: See below HPI: Patient presents due to concern for shortness of breath. The patient states that has been ongoing for many months but seems to have worsened in the last 3 to 4 days. The patient does have occasional PND and associated LE. The patient does state that he does develop orthopnea. The patient denies any significant leg swelling or calf pain. No history of DVT or PE. The patient does follow with cardiology [facility]. Patient denies any recent medication changes or missed doses. Patient states the last time that he saw cardiology he believes that they took him off of his diuretic medication. Per review patient's hydrochlorothiazide is shown to be on hold. Patient states that he is taking his medications regularly denies any cough or fever. No abdominal pain nausea vomiting or diarrhea. PAST MEDICAL HISTORY: See Below PAST SURGICAL HISTORY: See Below SOCIAL HISTORY: See Below HOME MEDICATIONS: See Below ALLERGIES: See Below VITALS: See Below PHYSICAL EXAMINATION: GENERAL: NAD, wearing a mask, non-toxic. Nasal cannula and hearing aids in place EYE EXAM: Normal conjunctiva. PERRL, no anisocoria and EOM's grossly intact w/o pain. NECK: Supple, no nuchal rigidity, no adenopathy, non-tender. No signs of meningismus. FROM of the neck with good chin to chest and neck extension. No stridor. LUNGS: Decreased breath sounds bilateral bases. Normal chest wall mechanics. HEART: NSR, systolic ejection murmur noted. ABDOMEN: Abdomen soft, non-tender, normo-active bowel sounds, no masses, no rebound or guarding. BACK: No CVA TTP. SKIN: No rashes and no bruising. UPPER EXTREMITIES: Upper extremities are grossly normal. LOWER EXTREMITIES: Grossly normal, no edema. Negative Homans' sign bilaterally. NEURO EXAM: A&O x3, cranial nerves II-XII grossly intact, normal speech, moves all 4 extremities. Past Med/Surg History Medical History Aneurysm, thoracic aortic pt unaware of size, follows with Dr. Eaton Aortic atherosclerosis Aortic stenosis, moderate Aortic stenosis, severe Atrial fibrillation BPH with obstruction/lower urinary tract symptoms Cervical disc disease Chronic sinusitis Cognitive disorder Coronary artery calcification Depression with anxiety Dyslipidemia Encounter for pre-operative examination Glaucoma Hearing loss Hepatic steatosis History of central retinal vein occlusion Hypertension Lower GI bleed no current issues Lower urinary tract symptoms (LUTS) Lumbar spinal stenosis Mitral regurgitation Osteoarthritis PAC (premature atrial contraction) Sleep apnea Stomach ulcer Trigeminal neuralgia received radiation for this, having numbess/tingling to right side of face since this Vitamin D deficiency Surgical History H/O cataract extraction (2013) H/O colonoscopy History of cochlear implant (01/12/12) BILATERAL History of pilonidal cyst removed History of umbilical hernia repair S/P foot surgery, right (12/2010) removal of heel spur S/P laser trabeculoplasty of eye (10/2014) b/l S/P nasal endoscopy with nasal polypectomy (2011) S/P rotator cuff repair b/l shoulders Family History Mother No pertinent family history Other Hypertension Denies family history of Ovarian cancer Prostate cancer Diabetes Myocardial infarction Breast cancer Colorectal cancer Cancer Social History Smoking Status: Former smoker Second Hand Exposure: No; Hx Alcohol Use: No Hx Substance Use: No Preferred Language: Yi Communication Ability: Effective Visual Impairment: No Limitations Hearing Ability: Cochlear Implant Pre Press Manager Required: No Beliefs That Will Affect Care: None marital status: Current Living Situation: Spouse current occupational status: retired How many Children do You have: 1 Feels Safe at Home: Yes Childhood Exposure to Second-Hand Smoke: Yes Diet Comment: regular caffeine: Yes (Soda 6 per day. Coffee 1 cup per day.) during the past year weight has: remained stable Dental Care, Regularly: No Physical Activity Frequency: Daily Seatbelt Use: sometimes Sunscreen Use: No Assistive Devices: Cane, Denture - Upper, Denture - Lower and Glasses Allergies Allergies Allergy/AdvReac Type Severity Reaction Status Date / Time baclofen Allergy Unknown Unknown Verified 08/17/22 14:37 cyclobenzaprine Allergy Unknown Unknown Verified 08/17/22 14:37 [From Flexeril] doxazosin Allergy Unknown Unknown Verified 08/17/22 14:37 doxycycline Allergy Unknown Unknown Verified 08/17/22 14:37 duloxetine Allergy Unknown Unknown Verified 08/17/22 14:37 gabapentin Allergy Unknown Unknown Verified 08/17/22 14:37 lisinopril Allergy Unknown Unknown Verified 08/17/22 14:37 naproxen Allergy Unknown Unknown Verified 08/17/22 14:37 nortriptyline [From Pamelor] Allergy Unknown Unknown Verified 08/17/22 14:37 oxcarbazepine Allergy Unknown Unknown Verified 08/17/22 14:37 Penicillins Allergy Unknown Unknown Verified 08/14/22 08:44 Home Meds Previous Rx's Medication Instructions Recorded acetaminophen 500 mg tablet 1,000 mg PO TID PRN fever or pain 11/18/18 #90 tabs mupirocin 2 % topical ointment 1 applic topical BID 7 days #22 04/24/21 grams loratadine 10 mg tablet (Claritin) 10 mg PO DAILY #30 tabs 09/16/21 potassium chloride 20 mEq 20 meq PO QAM #90 tabs 01/27/22 tablet,extended release tamsulosin 0.4 mg capsule 0.4 mg PO HS #90 caps 01/27/22 hydrochlorothiazide 25 mg tablet 25 mg PO QAM #90 tabs 01/30/22 losartan 100 mg tablet 100 mg PO QAM #90 tabs 01/30/22 amlodipine 5 mg tablet 5 mg PO QAM #90 tabs 03/23/22 fluticasone propionate 50 2 spray intranasal DAILY #16 grams 03/24/22 mcg/actuation nasal spray,suspension (Flonase Allergy Relief) atorvastatin 40 mg tablet 40 mg PO QAM #90 tabs 04/22/22 bupropion HCl 150 mg 24 hr tablet, 150 mg PO QAM #90 tabs 05/26/22 extended release (Wellbutrin XL) aspirin 81 mg tablet,delayed 81 mg PO DAILY #90 tabs 06/09/22 release ferrous sulfate 325 mg (65 mg 325 mg PO DAILY #30 tabs 06/18/22 iron) tablet paroxetine HCl 40 mg tablet 40 mg PO QAM #90 tabs 06/18/22 pantoprazole 40 mg tablet,delayed 40 mg PO DAILY #90 tabs 07/27/22 release Results & Data (ED) Vital Signs Vital Signs - 24 hr 08/17/22 11:36 08/17/22 11:36 08/17/22 11:36 Temperature 36.9 C Temperature Source Oral Pulse Rate 88 Pulse Rate [Right Finger] Pulse Rate from SpO2 Sensor Pulse Rhythm Regular Pulse Rhythm [Right Finger] Pulse Strength Normal Pulse Strength [Right Finger] Respiratory Rate 24 Respiratory Effort / Characteristics Non-Labored Spontaneous Respiratory Depth Normal Normal Respiratory Pattern Regular Tachypnea Blood Pressure 115/66 Blood Pressure [Right Arm] Blood Pressure Mean 82 Blood Pressure Mean [Right Arm] Blood Pressure Position Lying Blood Pressure Position [Right Arm] Pulse Oximetry 88 L 88 L Oxygen Delivery Method Room Air Nasal Cannula Oxygen Flow Rate 0 Sepsis Recent Fever Within 48 Hours No Sepsis New/Unexplained Change in Mental Status N/A Sepsis Action Taken by Nursing No Action Required Oxygen Flow Rate - Titration 3 Pulse Oximetry Post Tiitration 94 08/17/22 12:35 08/17/22 12:00 08/17/22 13:00 Temperature Temperature Source Pulse Rate 91 H Pulse Rate [Right Finger] 86 Pulse Rate from SpO2 Sensor Pulse Rhythm Pulse Rhythm [Right Finger] Regular Pulse Strength Pulse Strength [Right Finger] Normal Respiratory Rate 20 Respiratory Effort / Characteristics Non-Labored Respiratory Depth Normal Respiratory Pattern Regular Blood Pressure Blood Pressure [Right Arm] 115/66 Blood Pressure Mean Blood Pressure Mean [Right Arm] 82 Blood Pressure Position Blood Pressure Position [Right Arm] Lying Pulse Oximetry 94 95 Oxygen Delivery Method Nasal Cannula Room Air Oxygen Flow Rate 2 Sepsis Recent Fever Within 48 Hours Sepsis New/Unexplained Change in Mental Status Sepsis Action Taken by Nursing Oxygen Flow Rate - Titration Pulse Oximetry Post Tiitration 08/17/22 11:33 08/17/22 11:40 08/17/22 11:50 Temperature Temperature Source Pulse Rate 88 91 H Pulse Rate [Right Finger] Pulse Rate from SpO2 Sensor 91 H 86 76 Pulse Rhythm Pulse Rhythm [Right Finger] Pulse Strength Pulse Strength [Right Finger] Respiratory Rate 18 Respiratory Effort / Characteristics Respiratory Depth Respiratory Pattern Blood Pressure Blood Pressure [Right Arm] Blood Pressure Mean Blood Pressure Mean [Right Arm] Blood Pressure Position Blood Pressure Position [Right Arm] Pulse Oximetry 91 95 98 Oxygen Delivery Method Oxygen Flow Rate Sepsis Recent Fever Within 48 Hours Sepsis New/Unexplained Change in Mental Status Sepsis Action Taken by Nursing Oxygen Flow Rate - Titration Pulse Oximetry Post Tiitration 08/17/22 12:00 08/17/22 12:10 08/17/22 12:20 Temperature Temperature Source Pulse Rate 90 87 82 Pulse Rate [Right Finger] Pulse Rate from SpO2 Sensor 76 91 H 77 Pulse Rhythm Pulse Rhythm [Right Finger] Pulse Strength Pulse Strength [Right Finger] Respiratory Rate 19 27 H Respiratory Effort / Characteristics Respiratory Depth Respiratory Pattern Blood Pressure 111/75 Blood Pressure [Right Arm] Blood Pressure Mean 87 Blood Pressure Mean [Right Arm] Blood Pressure Position Blood Pressure Position [Right Arm] Pulse Oximetry 96 96 98 Oxygen Delivery Method Oxygen Flow Rate Sepsis Recent Fever Within 48 Hours Sepsis New/Unexplained Change in Mental Status Sepsis Action Taken by Nursing Oxygen Flow Rate - Titration Pulse Oximetry Post Tiitration 08/17/22 12:30 08/17/22 12:40 08/17/22 12:50 Temperature Temperature Source Pulse Rate 83 87 79 Pulse Rate [Right Finger] Pulse Rate from SpO2 Sensor 81 80 Pulse Rhythm Pulse Rhythm [Right Finger] Pulse Strength Pulse Strength [Right Finger] Respiratory Rate 19 30 H 25 H Respiratory Effort / Characteristics Respiratory Depth Respiratory Pattern Blood Pressure Blood Pressure [Right Arm] Blood Pressure Mean Blood Pressure Mean [Right Arm] Blood Pressure Position Blood Pressure Position [Right Arm] Pulse Oximetry 95 95 Oxygen Delivery Method Oxygen Flow Rate Sepsis Recent Fever Within 48 Hours Sepsis New/Unexplained Change in Mental Status Sepsis Action Taken by Nursing Oxygen Flow Rate - Titration Pulse Oximetry Post Tiitration 08/17/22 13:00 08/17/22 13:10 08/17/22 13:20 Temperature Temperature Source Pulse Rate 84 84 83 Pulse Rate [Right Finger] Pulse Rate from SpO2 Sensor 79 74 77 Pulse Rhythm Pulse Rhythm [Right Finger] Pulse Strength Pulse Strength [Right Finger] Respiratory Rate 22 20 16 Respiratory Effort / Characteristics Respiratory Depth Respiratory Pattern Blood Pressure Blood Pressure [Right Arm] Blood Pressure Mean Blood Pressure Mean [Right Arm] Blood Pressure Position Blood Pressure Position [Right Arm] Pulse Oximetry 94 95 95 Oxygen Delivery Method Oxygen Flow Rate Sepsis Recent Fever Within 48 Hours Sepsis New/Unexplained Change in Mental Status Sepsis Action Taken by Nursing Oxygen Flow Rate - Titration Pulse Oximetry Post Tiitration 08/17/22 13:30 08/17/22 13:40 08/17/22 13:54 Temperature Temperature Source Pulse Rate 92 H 84 Pulse Rate [Right Finger] Pulse Rate from SpO2 Sensor 86 84 Pulse Rhythm Pulse Rhythm [Right Finger] Pulse Strength Pulse Strength [Right Finger] Respiratory Rate 29 H 19 Respiratory Effort / Characteristics Respiratory Depth Respiratory Pattern Blood Pressure 111/75 Blood Pressure [Right Arm] Blood Pressure Mean 87 Blood Pressure Mean [Right Arm] Blood Pressure Position Blood Pressure Position [Right Arm] Pulse Oximetry 88 L 92 Oxygen Delivery Method Oxygen Flow Rate Sepsis Recent Fever Within 48 Hours Sepsis New/Unexplained Change in Mental Status Sepsis Action Taken by Nursing Oxygen Flow Rate - Titration Pulse Oximetry Post Tiitration 08/17/22 13:54 08/17/22 14:00 08/17/22 14:00 Temperature Temperature Source Pulse Rate 94 H 79 Pulse Rate [Right Finger] Pulse Rate from SpO2 Sensor 86 87 Pulse Rhythm Pulse Rhythm [Right Finger] Pulse Strength Pulse Strength [Right Finger] Respiratory Rate 22 23 Respiratory Effort / Characteristics Respiratory Depth Respiratory Pattern Blood Pressure 115/72 Blood Pressure [Right Arm] Blood Pressure Mean 86 Blood Pressure Mean [Right Arm] Blood Pressure Position Blood Pressure Position [Right Arm] Pulse Oximetry 91 93 Oxygen Delivery Method Nasal Cannula Nasal Cannula Oxygen Flow Rate 4 4 Sepsis Recent Fever Within 48 Hours Sepsis New/Unexplained Change in Mental Status Sepsis Action Taken by Nursing Oxygen Flow Rate - Titration Pulse Oximetry Post Tiitration 08/17/22 16:51 08/17/22 17:08 Temperature Temperature Source Pulse Rate 76 Pulse Rate [Right Finger] 83 Pulse Rate from SpO2 Sensor Pulse Rhythm Pulse Rhythm [Right Finger] Regular Pulse Strength Pulse Strength [Right Finger] Normal Respiratory Rate 22 Respiratory Effort / Characteristics Non-Labored Spontaneous Respiratory Depth Normal Respiratory Pattern Regular Blood Pressure Blood Pressure [Right Arm] 116/75 Blood Pressure Mean Blood Pressure Mean [Right Arm] 88 Blood Pressure Position Blood Pressure Position [Right Arm] Lying Pulse Oximetry 93 Oxygen Delivery Method Nasal Cannula Oxygen Flow Rate 4 Sepsis Recent Fever Within 48 Hours Sepsis New/Unexplained Change in Mental Status Sepsis Action Taken by Nursing Oxygen Flow Rate - Titration Pulse Oximetry Post Tiitration Home Medications Current Medication List: was personally reviewed by me Laboratory Data Attestation: I reviewed the patient's lab results. 08/17/22 11:45 08/17/22 11:45 Lab Results 08/17/22 08/17/22 08/17/22 Range/Units 11:45 11:45 11:45 WBC 6.51 (4.8-10.8) K/ul RBC 4.31 L (4.70-6.10) M/uL Hgb 12.4 L (14.0-18.0) g/dl Hct 38.6 L (42.0-52.0) % MCV 89.6 (80.0-100.0) fL MCH 28.8 (25.0-34.0) pg MCHC 32.1 (32.0-36.0) g/dL RDW Std Deviation 49.6 H (36.4-46.3) fL RDW Coeff of Herrera 15.0 H (11.5-14.5) % Plt Count 252 (130-400) K/uL MPV 9.9 (9.4-12.4) fL Immature Gran % (Auto) 0.5 % Neut % (Auto) 76.8 % Lymph % (Auto) 9.2 % Boyle % (Auto) 10.4 % Eos % (Auto) 2.0 % Baso % (Auto) 1.1 % Neut # (Auto) 5.00 (1.40-6.50) K/uL Lymph # (Auto) 0.60 L (1.2-3.4) K/uL Boyle # (Auto) 0.68 H (0.11-0.59) K/uL Eos # (Auto) 0.13 (0-0.50) K/uL Baso # (Auto) 0.07 (0-0.2) K/uL Immature Gran # (Auto) 0.03 (0.01-0.20) K/uL Sodium 137 (136-145) mmol/L Potassium 3.7 (3.5-5.1) mmol/L Chloride 106 (98-107) mmol/L Carbon Dioxide 24 (21-32) mmol/L Anion Gap 7 (3-11) BUN 22 (6-23) mg/dl Creatinine 1.23 (0.6-1.4) mg/dl Est Cr Clr Drug Dosing 60.1 ml/min Est GFR ( Amer) 66.6 ml/min Est GFR (Non-Af Amer) 57.5 ml/min BUN/Creatinine Ratio 17.9 (10-20) Glucose 97 (70-99(Fasting)) mg/dl Calcium 9.1 (8.6-10.3) mg/dl Magnesium 1.8 (1.7-2.4) mg/dl Iron 22 L (35-175) mcg/dl TIBC 285 (250-450) mcg/dl Unsaturated IBC 263 (155-355) mcg/dl Transferrin % Sat 8 L (20-50) % Ferritin 30.1 (8-388) ng/ml Total Bilirubin 1.0 (0.2-1.0) mg/dl AST 14 (13-39) U/L ALT 11 (7-52) U/L Alkaline Phosphatase 106 H (34-104) U/L Troponin I High Sens 43.5 H (0-20) pg/ml B-Natriuretic Peptide (0-100) pg/ml Total Protein 6.3 (6.0-8.3) gm/dl Albumin 3.6 (3.4-5.0) gm/dl Globulin 2.7 (2.5-4.0) gm/dl Albumin/Globulin Ratio 1.3 (0.9-2) Urine Color Urine Appearance (Clear) Urine pH (4.5-7.5) Ur Specific Crescent (1.000-1.030) Urine Protein (Negative) Urine Glucose (UA) (Negative) Urine Ketones (Negative) Urine Blood (Negative) Urine Nitrite (Negative) Urine Bilirubin (Negative) Urine Urobilinogen (Negative) Ur Leukocyte Esterase (Negative) SARS-CoV-2, RNA, NAAT (NEGATIVE) 08/17/22 08/17/22 08/17/22 Range/Units 12:40 14:05 14:12 WBC (4.8-10.8) K/ul RBC (4.70-6.10) M/uL Hgb (14.0-18.0) g/dl Hct (42.0-52.0) % MCV (80.0-100.0) fL MCH (25.0-34.0) pg MCHC (32.0-36.0) g/dL RDW Std Deviation (36.4-46.3) fL RDW Coeff of Herrera (11.5-14.5) % Plt Count (130-400) K/uL MPV (9.4-12.4) fL Immature Gran % (Auto) % Neut % (Auto) % Lymph % (Auto) % Boyle % (Auto) % Eos % (Auto) % Baso % (Auto) % Neut # (Auto) (1.40-6.50) K/uL Lymph # (Auto) (1.2-3.4) K/uL Boyle # (Auto) (0.11-0.59) K/uL Eos # (Auto) (0-0.50) K/uL Baso # (Auto) (0-0.2) K/uL Immature Gran # (Auto) (0.01-0.20) K/uL Sodium (136-145) mmol/L Potassium (3.5-5.1) mmol/L Chloride (98-107) mmol/L Carbon Dioxide (21-32) mmol/L Anion Gap (3-11) BUN (6-23) mg/dl Creatinine (0.6-1.4) mg/dl Est Cr Clr Drug Dosing ml/min Est GFR ( Amer) ml/min Est GFR (Non-Af Amer) ml/min BUN/Creatinine Ratio (10-20) Glucose (70-99(Fasting)) mg/dl Calcium (8.6-10.3) mg/dl Magnesium Cancelled (1.7-2.4) mg/dl Iron (35-175) mcg/dl TIBC (250-450) mcg/dl Unsaturated IBC (155-355) mcg/dl Transferrin % Sat (20-50) % Ferritin (8-388) ng/ml Total Bilirubin (0.2-1.0) mg/dl AST (13-39) U/L ALT (7-52) U/L Alkaline Phosphatase (34-104) U/L Troponin I High Sens (0-20) pg/ml B-Natriuretic Peptide 627 H (0-100) pg/ml Total Protein (6.0-8.3) gm/dl Albumin (3.4-5.0) gm/dl Globulin (2.5-4.0) gm/dl Albumin/Globulin Ratio (0.9-2) Urine Color Urine Appearance (Clear) Urine pH (4.5-7.5) Ur Specific Crescent (1.000-1.030) Urine Protein (Negative) Urine Glucose (UA) (Negative) Urine Ketones (Negative) Urine Blood (Negative) Urine Nitrite (Negative) Urine Bilirubin (Negative) Urine Urobilinogen (Negative) Ur Leukocyte Esterase (Negative) SARS-CoV-2, RNA, NAAT NEGATIVE (NEGATIVE) 08/17/22 Range/Units 16:34 WBC (4.8-10.8) K/ul RBC (4.70-6.10) M/uL Hgb (14.0-18.0) g/dl Hct (42.0-52.0) % MCV (80.0-100.0) fL MCH (25.0-34.0) pg MCHC (32.0-36.0) g/dL RDW Std Deviation (36.4-46.3) fL RDW Coeff of Herrera (11.5-14.5) % Plt Count (130-400) K/uL MPV (9.4-12.4) fL Immature Gran % (Auto) % Neut % (Auto) % Lymph % (Auto) % Boyle % (Auto) % Eos % (Auto) % Baso % (Auto) % Neut # (Auto) (1.40-6.50) K/uL Lymph # (Auto) (1.2-3.4) K/uL Boyle # (Auto) (0.11-0.59) K/uL Eos # (Auto) (0-0.50) K/uL Baso # (Auto) (0-0.2) K/uL Immature Gran # (Auto) (0.01-0.20) K/uL Sodium (136-145) mmol/L Potassium (3.5-5.1) mmol/L Chloride (98-107) mmol/L Carbon Dioxide (21-32) mmol/L Anion Gap (3-11) BUN (6-23) mg/dl Creatinine (0.6-1.4) mg/dl Est Cr Clr Drug Dosing ml/min Est GFR ( Amer) ml/min Est GFR (Non-Af Amer) ml/min BUN/Creatinine Ratio (10-20) Glucose (70-99(Fasting)) mg/dl Calcium (8.6-10.3) mg/dl Magnesium (1.7-2.4) mg/dl Iron (35-175) mcg/dl TIBC (250-450) mcg/dl Unsaturated IBC (155-355) mcg/dl Transferrin % Sat (20-50) % Ferritin (8-388) ng/ml Total Bilirubin (0.2-1.0) mg/dl AST (13-39) U/L ALT (7-52) U/L Alkaline Phosphatase (34-104) U/L Troponin I High Sens (0-20) pg/ml B-Natriuretic Peptide (0-100) pg/ml Total Protein (6.0-8.3) gm/dl Albumin (3.4-5.0) gm/dl Globulin (2.5-4.0) gm/dl Albumin/Globulin Ratio (0.9-2) Urine Color Yellow Urine Appearance Clear (Clear) Urine pH 6.0 (4.5-7.5) Ur Specific Crescent 1.006 (1.000-1.030) Urine Protein Negative (Negative) Urine Glucose (UA) Negative (Negative) Urine Ketones Negative (Negative) Urine Blood Negative (Negative) Urine Nitrite Negative (Negative) Urine Bilirubin Negative (Negative) Urine Urobilinogen Negative (Negative) Ur Leukocyte Esterase Negative (Negative) SARS-CoV-2, RNA, NAAT (NEGATIVE) Administered Medications Discontinued Medications Furosemide (Furosemide 40 Mg/4 Ml Vial) 40 mg IV ONE ONE Stop: 08/17/22 13:36 Last Admin: 08/17/22 13:52 Dose: 40 mg Documented By: [facility] [place] Imaging Data Radiologist's Impression: Chest X-Ray 08/17/22 11:56 SINGLE VIEW CHEST CLINICAL HISTORY: Dyspnea. FINDINGS: An AP, portable, upright chest radiograph is compared to study dated 03/11/2021 and correlated with chest CT dated 11/15/2018. The heart is enlarged note atherosclerotic calcification of the thoracic aorta. There is prominence of the pulmonary vasculature. Chronic interstitial thickening is unchanged. No pneumothorax is seen noting bibasilar scarring/atelectasis. The skeletal structures are osteopenic. The bony thorax is grossly intact. Arthritic change is seen in the shoulders. Superior subluxation of the humeral heads suggest chronic bilateral rotator cuff injury. IMPRESSION: Cardiomegaly with prominence of the pulmonary vasculature. Correlate clinically for evidence of fluid overload/congestive change. ACT 112: Negative or not required by law. Electronically signed by: Kimo Mora M.D. 08/17/2022 12:24 PM Discharge Plan Visit Data Chief Complaint: Shortness of Breath/Dyspnea Stated Complaint: SOB, CHEST PAIN ED Provider: Fidencio Soto Discharge Problem: Acute exacerbation of CHF (congestive heart failure), Acute dyspnea, Elevated troponin I level, Elevated brain natriuretic peptide (BNP) level, Hypoxia Patient Disposition: Admitted As Inpatient Discharge Instructions Interventions: ED Discharge Assessment Last Done: 08/17/22 17:17 Forms Stand Alone Forms: My [facility] Prescriptions Prescriptions: No Action tamsulosin 0.4 mg capsule 0.4 mg PO HS Qty: 90 1RF potassium chloride 20 mEq tablet extended release 20 meq PO QAM Qty: 90 1RF hydrochlorothiazide 25 mg tablet 25 mg PO QAM Qty: 90 1RF Hold Instructions: hypotension losartan 100 mg tablet 100 mg PO QAM Qty: 90 1RF amlodipine 5 mg tablet 5 mg PO QAM Qty: 90 3RF atorvastatin 40 mg tablet 40 mg PO QAM Qty: 90 1RF bupropion HCl [Wellbutrin XL] 150 mg tablet extended release 24 hr 150 mg PO QAM Qty: 90 3RF paroxetine HCl 40 mg tablet 40 mg PO QAM Qty: 90 1RF ferrous sulfate 325 mg (65 mg iron) tablet 325 mg PO DAILY Qty: 30 0RF pantoprazole 40 mg tablet,delayed release (DR/EC) 40 mg PO DAILY Qty: 90 2RF mupirocin 2 % ointment 1 applic topical BID 7 Days Qty: 22 0RF loratadine [Claritin] 10 mg tablet 10 mg PO DAILY Qty: 30 1RF aspirin 81 mg tablet,delayed release (DR/EC) 81 mg PO DAILY Qty: 90 3RF acetaminophen 500 mg tablet 1,000 mg PO TID PRN (Reason: fever or pain) Qty: 90 5RF fluticasone propionate [Flonase Allergy Relief] 50 mcg/actuation spray,suspension 2 spray intranasal DAILY Qty: 16 1RF Rx Instructions: administer into each nostril Referrals Referrals: Nova Rousseau DO [Primary Care Provider] -
--- NOTE | 2022-08-17 12:26 | XRay Report ---
SINGLE VIEW CHEST CLINICAL HISTORY: Dyspnea. FINDINGS: An AP, portable, upright chest radiograph is compared to study dated 03/11/2021 and correla tamara with chest CT dated 11/15/2018. The heart is enlarged note atherosclerotic calcification of the th oracic aorta. There is prominence of the pulmonary vasculature. Chronic interstitial thickening is un changed. No pneumothorax is seen noting bibasilar scarring/atelectasis. The skeletal structures are o steopenic. The bony thorax is grossly intact. Arthritic change is seen in the shoulders. Superior sub luxation of the humeral heads suggest chronic bilateral rotator cuff injury. IMPRESSION: Cardiomegaly with prominence of the pulmonary vasculature. Correlate clinically for evide nce of fluid overload/congestive change. ACT 112: Negative or not required by law. Electronically signed by: Kimo Mora M.D. 08/17/2022 12:24 PM
[2022-08-17 12:40] LABS: Basophils # (auto) 0.07 K/uL (0-0.2); Basophils % (auto) 1.1 %; Eosinophils # (auto) 0.13 K/uL (0-0.50); Hematocrit (blood only) 38.6 % (42.0-52.0); Hemoglobin 12.4 g/dl (14.0-18.0); Immature Granulocytes # (auto) 0.03 K/uL (0.01-0.20); Immature Granulocytes % (auto) 0.5 %; Lymphocytes % (auto) 9.2 %; Mean Corpuscular Hemoglobin 28.8 pg (25.0-34.0); Mean Corpuscular Hgb Conc 32.1 g/dL (32.0-36.0); Mean Corpuscular Volume 89.6 fL (80.0-100.0); Mean Platelet Volume 9.9 fL (9.4-12.4); Monocytes # (auto) 0.68 K/uL (0.11-0.59); Monocytes % (auto) 10.4 %; Neutrophils % (auto) 76.8 %; Platelet Count 252 K/uL (130-400); RDW Standard Deviation 49.6 fL (36.4-46.3); Red Blood Count 4.31 M/uL (4.70-6.10); White Blood Count 6.51 K/ul (4.8-10.8)
[2022-08-17 12:58] LABS: Albumin Globulin Ratio 1.3 (0.9-2); Albumin Level 3.6 gm/dl (3.4-5.0); BUN Creatinine Ratio 17.9 (10-20); Calcium 9.1 mg/dl (8.6-10.3); Creatinine Clr Calc Pharmacy 60.1 ml/min; Est GFR (African American) 66.6 ml/min; Est GFR (Non-African American) 57.5 ml/min; Globulin 2.7 gm/dl (2.5-4.0); Potassium 3.7 mmol/L (3.5-5.1); Total Protein 6.3 gm/dl (6.0-8.3)
[2022-08-17 13:05] LABS: Troponin I High Sensitivity 43.5 pg/ml (0-20)
[2022-08-17] MEDS ORDERED: FUROSEMIDE 40 MG/4 ML VIAL IV ONE (13:35)
--- NOTE | 2022-08-17 14:13 | History & Physical Report ---
Date of Service August 17, 2022 Assessment & Plan (1) Dyspnea on exertion: Plan: several days of LE, worse over the past several months had stopped spironolactone due to throat irritation, recently HCTZ for pre- syncope Recent ECHO w/ EF 60-65%, no wma, severe valvular aortic stenosis, prolapse posterior mitral leaflet. mild aortic root dilatation. Compared to July 2021, no change CXR w/ cardiomegaly w/ prom of pulm vasculature Admit to telemetry BNP 627 -No need to repeat ECHO as last within past month, severe aortic stenosis, quiet S2 on exam but able to be appreciated, harsh systolic murmur c/w Given lasix 40mg IV in ER, will monitor response, possibly defer to day team for additional dosing unless respiratory status worsens to prevent overdiuresis in patient w/ severe Consult cards -suspect need for more urgent TAVR in f/u but will attempt to admit/optimize at this time - holding further amlodipine while diuresing w/ lasix and prior hypotension. HCTZ previously held but will use lasix -- dosing in AM per oncoming team unless not having adequate diuresis as above Trend troponin - initial 43.5, suspect likely demand ischemia from volume overload/valvular heart disease and will trend Check iron studies anemia, hgb 12.4 and on supplementation/hx rectal bleeding (note fecal occult neg x 3 this year). Check B12/folate as appears B12 low earlier this year as well Supplemental O2 to maintain sats -- currently saturating well on 2L Monitor weights, I&O AHA diet Check mag/replacement if needed - keep k/mag replete w/ hx paroxysmal afib Monitor labs/volume status on repeat (2) Aortic stenosis, severe: Plan: on recent echo diuretics as above (3) Syncope: Plan: likely 2nd to severe aortic stenosis (4) Atrial fibrillation: Plan: hx of paroxysmal afib, on amlodipine but no BB. No Eliquis given Hx bleeding/intolerance/$$$ SR on exam/EKG Keep mag/K replete to prevent issues Check TSH for completeness Monitor on tele (5) Sleep apnea: Plan: not able to tolerate CPAP due to R facial pain/trigeminal neuralgia ?nasal pillows -- discuss in follow up (6) Acute heart failure with preserved ejection fraction: History of Present Illness Chief Complaint: shortness of breath Primary Care Provider: Nova Rousseau, DO 76yo male with PMHx significant for aortic stenosis, paroxysmal atrial fibrillation (on eliquis but no longer due to epistaxis, not able to tolerate ASA due to rectal bleeding), HTN, HLD, MARLON (not able to tolerate CPAP due to R facial pain), depression, anxiety, trigeminal neuralgia, hepatic steatosis, lumbar spinal stenosis, hearing loss, BPH w/ LUTS presented with shortness of breath. Had his HCTZ stopped several days ago for reports of near syncope over the past months,, has been having ongoing LE for months but worse recently. Weight up ~2kg from ~2-3 days ago. Remained on amlodipine and losartan but not the HCTZ, previously stopped spironolactone previously to that due to throat irritation. Had a holter monitor w/o abn rhythm per most recent note and worked up by [facility] for possible Watchman device for afib but on hold at this time. Does have some depression anterior leads but no CP reported. Was hypoxic w/ Pox 83% which responded and stable on 2L currently. Given lasix 40mg IV x 1 in ER. CXR w/ cardiomegaly w/ evidence for volume overload. Patient seen in B9 -- states breathing stable on 2L presently. Weighs self at home, up about 2-3lb from day prior. Denies heavily salting things but does endorse eating packaged meals/frozen/prepared at times. Reports does have some issues with orthopnea at baseline. No fever/chills at home. +cough but no sputum production. Not on ASA/eliquis for rectal bleeding and epistaxis confirmed (fecal occult negative x 3 earlier this year of note). No lightheadedness/dizziness/syncope at present but does endorse he was having symptoms of this at home with lower blood pressures. He states he has appt w/ Terell September 17 for consideration for watchman "unless this changes things" per patient. Denies any palpitations related to his syncopal appearance. DENIES chest pain at present. Discussed holding amlodipine and using diuretics. Unable to tolated CPAP, however he states he is a mouth breather -- rec'd to f/u discussion about nasal pillows for benefit given worsening aortic stenosis.Discussed likely will need valvular replacement. Ok w/ CPR/intubation if needed, Full Code. COVID pending. Allergies Allergy/AdvReac Type Severity Reaction Status Date / Time baclofen Allergy Unknown Unknown Verified 08/17/22 14:37 cyclobenzaprine Allergy Unknown Unknown Verified 08/17/22 14:37 [From Flexeril] doxazosin Allergy Unknown Unknown Verified 08/17/22 14:37 doxycycline Allergy Unknown Unknown Verified 08/17/22 14:37 duloxetine Allergy Unknown Unknown Verified 08/17/22 14:37 gabapentin Allergy Unknown Unknown Verified 08/17/22 14:37 lisinopril Allergy Unknown Unknown Verified 08/17/22 14:37 naproxen Allergy Unknown Unknown Verified 08/17/22 14:37 nortriptyline [From Pamelor] Allergy Unknown Unknown Verified 08/17/22 14:37 oxcarbazepine Allergy Unknown Unknown Verified 08/17/22 14:37 Penicillins Allergy Unknown Unknown Verified 08/14/22 08:44 Home Medications Medication Instructions Recorded Confirmed Type acetaminophen 500 mg tablet 1,000 mg PO TID PRN fever or pain 11/18/18 08/17/22 Rx #90 tabs mupirocin 2 % topical ointment 1 applic topical BID 7 days #22 04/24/21 08/17/22 Rx grams loratadine 10 mg tablet (Claritin) 10 mg PO DAILY #30 tabs 09/16/21 08/17/22 Rx potassium chloride 20 mEq 20 meq PO QAM #90 tabs 01/27/22 08/17/22 Rx tablet,extended release tamsulosin 0.4 mg capsule 0.4 mg PO HS #90 caps 01/27/22 08/17/22 Rx hydrochlorothiazide 25 mg tablet 25 mg PO QAM #90 tabs 01/30/22 08/17/22 Rx losartan 100 mg tablet 100 mg PO QAM #90 tabs 01/30/22 08/17/22 Rx amlodipine 5 mg tablet 5 mg PO QAM #90 tabs 03/23/22 08/17/22 Rx fluticasone propionate 50 2 spray intranasal DAILY #16 grams 03/24/22 08/17/22 Rx mcg/actuation nasal spray,suspension (Flonase Allergy Relief) atorvastatin 40 mg tablet 40 mg PO QAM #90 tabs 04/22/22 08/17/22 Rx bupropion HCl 150 mg 24 hr tablet, 150 mg PO QAM #90 tabs 05/26/22 08/17/22 Rx extended release (Wellbutrin XL) aspirin 81 mg tablet,delayed 81 mg PO DAILY #90 tabs 06/09/22 08/17/22 Rx release ferrous sulfate 325 mg (65 mg 325 mg PO DAILY #30 tabs 06/18/22 08/17/22 Rx iron) tablet paroxetine HCl 40 mg tablet 40 mg PO QAM #90 tabs 06/18/22 08/17/22 Rx pantoprazole 40 mg tablet,delayed 40 mg PO DAILY #90 tabs 07/27/22 08/17/22 Rx release Past Med/Surg History Medical History Aneurysm, thoracic aortic pt unaware of size, follows with Dr. Paige Aortic atherosclerosis Aortic stenosis, moderate Aortic stenosis, severe Atrial fibrillation BPH with obstruction/lower urinary tract symptoms Cervical disc disease Chronic sinusitis Cognitive disorder Coronary artery calcification Depression with anxiety Dyslipidemia Encounter for pre-operative examination Glaucoma Hearing loss Hepatic steatosis History of central retinal vein occlusion Hypertension Lower GI bleed no current issues Lower urinary tract symptoms (LUTS) Lumbar spinal stenosis Mitral regurgitation Osteoarthritis PAC (premature atrial contraction) Sleep apnea Stomach ulcer Trigeminal neuralgia received radiation for this, having numbess/tingling to right side of face since this Vitamin D deficiency Surgical History H/O cataract extraction (2013) H/O colonoscopy History of cochlear implant (01/12/12) BILATERAL History of pilonidal cyst removed History of umbilical hernia repair S/P foot surgery, right (12/2010) removal of heel spur S/P laser trabeculoplasty of eye (10/2014) b/l S/P nasal endoscopy with nasal polypectomy (2011) S/P rotator cuff repair b/l shoulders Family History Mother No pertinent family history Other Hypertension Denies family history of Ovarian cancer Prostate cancer Diabetes Myocardial infarction Breast cancer Colorectal cancer Cancer Social History Smoking Status: Never smoker Second Hand Exposure: No; Hx Alcohol Use: No Hx Substance Use: No Preferred Language: Malawian Communication Ability: Effective Visual Impairment: No Limitations Hearing Ability: 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 Coffee 1 cup per day.) during the past year weight has: remained stable Dental Care, Regularly: No Physical Activity Frequency: Daily Seatbelt Use: sometimes Sunscreen Use: No Assistive Devices: Cane, Denture - Upper, Denture - Lower and Glasses Review of Systems Review of Systems: All systems reviewed & are unremarkable except as noted in HPI & below Physical Exam Physical Exam: General: WD male sitting up in bed, NAD HEENT: head normocephalic, atraumatic, mmm, trachea midline, +JVD, slightly hard of hearing (hearing aides in place bilaterally) Resp: diminished in the bases with expiratory wheezing/bibasilar crackles, no distress/tachypnea, on 2L NC CV: RRR, S1, quiet S2, HARSH systolic murmur w/ radiation RUSB, trace LE edema, calves nontender, pulses palpable GI: +BS, distended slightly, nontender : no staley, urinal at bedside MSK/Neuro: no focal deficit/slurred speech/facial droop Psych: AOx3, pleasant and cooperative Results & Data Results & Data Vital Signs (Past 12 Hours) Vital Signs Temp Pulse Pulse Resp BP BP Pulse Ox 08/17/22 13:40 84 19 92 08/17/22 13:30 92 H 29 H 88 L 08/17/22 13:20 83 16 95 08/17/22 13:10 84 20 95 08/17/22 13:00 84 22 94 08/17/22 12:50 79 25 H 95 08/17/22 12:40 87 30 H 08/17/22 12:30 83 19 95 08/17/22 12:20 82 27 H 98 08/17/22 12:10 87 19 111/75 96 08/17/22 12:00 90 96 08/17/22 11:50 91 H 98 08/17/22 11:40 88 95 08/17/22 11:33 18 91 08/17/22 13:00 86 20 115/66 95 08/17/22 12:00 94 08/17/22 12:35 91 H 08/17/22 11:36 88 L 08/17/22 11:36 36.9 C 88 24 115/66 88 L O2 Del Method O2 Flow Rate 08/17/22 13:40 08/17/22 13:30 08/17/22 13:20 08/17/22 13:10 08/17/22 13:00 08/17/22 12:50 08/17/22 12:40 08/17/22 12:30 08/17/22 12:20 08/17/22 12:10 08/17/22 12:00 08/17/22 11:50 08/17/22 11:40 08/17/22 11:33 08/17/22 13:00 Room Air 08/17/22 12:00 Nasal Cannula 2 08/17/22 12:35 08/17/22 11:36 Nasal Cannula 0 08/17/22 11:36 Room Air Laboratory Results 08/17/22 08/17/22 08/17/22 Range/Units 12:40 11:45 11:45 WBC 6.51 (4.8-10.8) K/ul RBC 4.31 L (4.70-6.10) M/uL Hgb 12.4 L (14.0-18.0) g/dl Hct 38.6 L (42.0-52.0) % MCV 89.6 (80.0-100.0) fL MCH 28.8 (25.0-34.0) pg MCHC 32.1 (32.0-36.0) g/dL RDW Std Deviation 49.6 H (36.4-46.3) fL RDW Coeff of Herrera 15.0 H (11.5-14.5) % Plt Count 252 (130-400) K/uL MPV 9.9 (9.4-12.4) fL Immature Gran % (Auto) 0.5 % Neut % (Auto) 76.8 % Lymph % (Auto) 9.2 % Taliaferro % (Auto) 10.4 % Eos % (Auto) 2.0 % Baso % (Auto) 1.1 % Neut # (Auto) 5.00 (1.40-6.50) K/uL Lymph # (Auto) 0.60 L (1.2-3.4) K/uL Taliaferro # (Auto) 0.68 H (0.11-0.59) K/uL Eos # (Auto) 0.13 (0-0.50) K/uL Baso # (Auto) 0.07 (0-0.2) K/uL Immature Gran # (Auto) 0.03 (0.01-0.20) K/uL Sodium 137 (136-145) mmol/L Potassium 3.7 (3.5-5.1) mmol/L Chloride 106 (98-107) mmol/L Carbon Dioxide 24 (21-32) mmol/L Anion Gap 7 (3-11) BUN 22 (6-23) mg/dl Creatinine 1.23 (0.6-1.4) mg/dl Est Cr Clr Drug Dosing 60.1 ml/min Est GFR ( Amer) 66.6 ml/min Est GFR (Non-Af Amer) 57.5 ml/min BUN/Creatinine Ratio 17.9 (10-20) Glucose 97 (70-99(Fasting)) mg/dl Calcium 9.1 (8.6-10.3) mg/dl Total Bilirubin 1.0 (0.2-1.0) mg/dl AST 14 (13-39) U/L ALT 11 (7-52) U/L Alkaline Phosphatase 106 H (34-104) U/L Troponin I High Sens 43.5 H (0-20) pg/ml B-Natriuretic Peptide Pending Total Protein 6.3 (6.0-8.3) gm/dl Albumin 3.6 (3.4-5.0) gm/dl Globulin 2.7 (2.5-4.0) gm/dl Albumin/Globulin Ratio 1.3 (0.9-2) Diagnostic Findings Chest X-Ray 08/17/22 11:56 SINGLE VIEW CHEST CLINICAL HISTORY: Dyspnea. FINDINGS: An AP, portable, upright chest radiograph is compared to study dated 03/11/2021 and correlated with chest CT dated 11/15/2018. The heart is enlarged note atherosclerotic calcification of the thoracic aorta. There is prominence of the pulmonary vasculature. Chronic interstitial thickening is unchanged. No pneumothorax is seen noting bibasilar scarring/atelectasis. The skeletal structures are osteopenic. The bony thorax is grossly intact. Arthritic change is seen in the shoulders. Superior subluxation of the humeral heads suggest chronic bilateral rotator cuff injury. IMPRESSION: Cardiomegaly with prominence of the pulmonary vasculature. Correlate clinically for evidence of fluid overload/congestive change. ACT 112: Negative or not required by law. Electronically signed by: Kimo Mora M.D. 08/17/2022 12:24 PM ECG Additional Comments: EKG w/ SR w/ marked sinus arrhythmia, depressions in anterior leads w/ T wave inversion now more evidence in inferolateral leads Supervising Physician Co-Signing Physician Notes I personally saw and examined the patient. I verified all tobar points and agree with Elise Fatima PA-C with the following exceptions and/or additions: 76 year old male presents to the ER with shortness of breath. Known severe aortic stenosis on echo in June. Stopped HCTZ and spironolactone with PCP due to syncope and orthostasis. Workup in ER consistent with heart failure O/E A&Ox3, HS1+2 LARISSA (late opening) and apical holosystolic murmur, Chest bibasal crackles, Abdo SNT, Trace leg edema A/P Acute valvular heart failure - I suspect he has some optimization since he has a decent BP help with diuresis. Will stop amlodipine and start Lasix 40mg IV BID. No need to repeat echo. Consult cardiology to consider inaptient transfer vs. close outpatient f/u regarding his aortic stenosis Syncope and orthostasis - ultimately due to aortic stenosis as above but perhaps he does need ot be on less BP meds but certainly would favor diuretics instead of amlodipine or even losartan. If still remains orthostatic despite optimization would recommend inpatient transfer for TAVR MARLON - trial CPAP HS here to see if he can tolerate PG Care Time/CCT Total # of Minutes Spent Total Time Spent with Patient: Total time spent is greater than 50% in coordination of care (as documented) at patient's floor/unit and/or counseling patient: Coding Level of Care Code 61687 INT INP/OBS CARE 3/75MIN Diagnoses Dyspnea on exertion R06.00 Aortic stenosis, severe I35.0 Syncope R55 Atrial fibrillation I48.91 Sleep apnea G47.30 Acute heart failure with preserved ejection fraction I50.31
[2022-08-17 15:06] LABS: Magnesium 1.8 mg/dl (1.7-2.4)
--- NOTE | 2022-08-17 15:14 | Electrocardiogram Report ---
Test Reason : Blood Pressure : / mmHG Vent. Rate : 094 BPM Atrial Rate : 094 BPM P-R Int : 200 ms QRS Dur : 106 ms QT Int : 370 ms P-R-T Axes : 090 072 -32 degrees QTc Int : 462 ms Sinus rhythm with marked sinus arrhythmia Prolonged QT Abnormal ECG When compared with ECG of 11-MAR-2021 13:06, ST more depressed Anterior leads T wave inversion now evident in Inferior leads T wave inversion more evident in Anterior leads Confirmed by Toñito Paige ([id number]) on 08/17/2022 3:14:47 PM Referred By: Confirmed By:Toñito Paige
[2022-08-17 15:27] LABS: Ferritin 30.1 ng/ml (8-388)
[2022-08-17 17:22] LABS: Appearance Urine Clear (Clear); Bilirubin Urine Negative (Negative); Blood Urine Negative (Negative); Color Urine Yellow; Glucose Urine UA Negative (Negative); Ketones Urine Negative (Negative); Leukocyte Esterase Urine Negative (Negative); Nitrite Urine Negative (Negative); Protein Urine Negative (Negative); Specific Gravity Urine 1.006 (1.000-1.030); Urobilinogen Urine Negative (Negative)
[2022-08-17] MEDS ORDERED: ONDANSETRON INJ 2 MG/ML 2 ML VIAL IV PRN (17:40)
[2022-08-17] MEDS ORDERED: ACETAMINOPHEN 325 MG TAB PO PRN (17:40)
[2022-08-17] MEDS ORDERED: POTASSIUM CHLORIDE CRTAB 20 MEQ TABCR PO STA ×2 (18:15→18:23)
[2022-08-17] MEDS ORDERED: FUROSEMIDE INJ 20 MG/2 ML VIAL IV ONE (18:30)
[2022-08-17] MEDS: MAGNESIUM SULFATE / D5W 1 GM/100 ML BAG IV SCH ×2 (18:40→21:11)
[2022-08-17] MEDS ORDERED: IRON SUCROSE 300 MG in SODIUM CHLORIDE 0.9% 250 ML IV ONE (19:00)
[2022-08-17] MEDS: TAMSULOSIN HCL 0.4 MG CAP PO SCH (21:12)
[2022-08-18 06:37] LABS: Hematocrit (blood only) 38.7 % (42.0-52.0); Hemoglobin 12.5 g/dl (14.0-18.0); Mean Corpuscular Hemoglobin 29.1 pg (25.0-34.0); Mean Corpuscular Hgb Conc 32.3 g/dL (32.0-36.0); Mean Platelet Volume 9.5 fL (9.4-12.4); Platelet Count 244 K/uL (130-400); RDW Coefficient of Variation 14.9 % (11.5-14.5); RDW Standard Deviation 48.9 fL (36.4-46.3); White Blood Count 5.91 K/ul (4.8-10.8)
[2022-08-18 07:01] LABS: INR 1.1 (0.9-1.1)
[2022-08-18 07:07] LABS: Albumin Globulin Ratio 1.2 (0.9-2); Albumin Level 3.6 gm/dl (3.4-5.0); BUN Creatinine Ratio 16.5 (10-20); Bilirubin,Total 1.1 mg/dl (0.2-1.0); Calcium 9.2 mg/dl (8.6-10.3); Creatinine Clr Calc Pharmacy 51.5 ml/min; Est GFR (African American) 57.5 ml/min; Est GFR (Non-African American) 49.6 ml/min; Globulin 2.9 gm/dl (2.5-4.0); Potassium 4.1 mmol/L (3.5-5.1); Total Protein 6.5 gm/dl (6.0-8.3)
[2022-08-18] MEDS: LORATADINE 10 MG TAB PO SCH (08:58)
[2022-08-18] MEDS: LOSARTAN POTASSIUM 50 MG TAB PO SCH (08:58)
[2022-08-18] MEDS: FUROSEMIDE 40 MG/4 ML VIAL IV SCH ×2 (08:59→17:08)
[2022-08-18] MEDS: POTASSIUM CHLORIDE CRTAB 20 MEQ TABCR PO SCH (08:59)
[2022-08-18] MEDS: FERROUS SULFATE 325 MG TAB PO SCH (08:59)
[2022-08-18] MEDS: FLUTICASONE PROPIONATE NA SPR 16 GM BTL NAE SCH (08:59)
--- NOTE | 2022-08-18 09:28 | Cardiology Consultation ---
Date of Consultation August 18, 2022 Assessment & Plan (1) Acute heart failure with preserved ejection fraction: (2) Aortic stenosis, severe: (3) MVP (mitral valve prolapse): (4) Mitral regurgitation: Mr. 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 Patient met with his PCP on 06/23/22 after having 2 syncopal episodes over the preceding 2 months. Diuretic were held due to suspected dehydration -- and he did not have any further syncopal episodes but has had some near syncope from time to time. In the ensuing month his exertional dyspnea came on more consistently and gradually got worse. The patient also noted weight gain just from several days prior. Approximately 4 days before admission his SOB, LE, and Orthopnea got much worse so he came into [facility] ER for further evaluation and treatment. In the ER he patient's blood work shows normal white blood cell count, Hgb of 12.4 g/dL (chronic and stable), platelet count is unremarkable. Kidney function and electrolytes are unremarkable. The patient's initial hs Troponin I of 43 pg/mL with subsequent values being 50, 43, and 42 pg/mL. BNP is elevated 627 pg/mL. COVID-negative. CXR showed cardiomegaly and pulmonary vasculature prominence. Patient was ordered Lasix 40 mg IV in the ER, and is maintained on IV Lasix 40 mg b.i.d.. EKG showed sinus rhythm with sinus arrhythmia, ST and T-wave abnormalities consider anterior ischemia, ST and T- wave abnormalities consider inferior ischemia. Patient has had a negative fluid balance of 1475 mL. He is less SOB today although he has not been up moving around much today. He was able to sleep lying down flat last night and did not have any orthopnea or PND. Patient has not had any angina pectoris or anginal equivalent symptoms nor has he had any recurrent atrial fibrillation to his knowledge. Patient has not had any symptoms suggestive of stroke or mini stroke. We have discussed the progression of his aortic valvular disease, and he has at least moderate mitral regurgitation with posterior mitral leaflet prolapse. He is at the point that he needs his aortic valve replaced +/- intervention on his mitral valve. Provided he continues to respond to diuresis, and becomes compensated from heart failure standpoint -- we can see him soon after discharge and make arrangements for a cardiac catheterization prior to aortic valve replacement vs TAVR +/- possible intervention on his mitral valve. However if he does not continue to respond well to diuresis, we can make arrangements to transfer him to [place] or [facility] for his pre-valve workup and valve replacement. Recommend the followin. Continue Lasix 40 mg IV b.i.d. until compensated. 2. Recommend starting low-dose Toprol XL 25 mg daily, closely monitor blood pressures. 3. He will likely have benefit with Jardiance 10 mg daily as well. 4. Remain off of Amlodipine. 5. Continue Losartan 100 mg daily. 6. 2 g low-sodium diet. 7. Monitor daily body weights, I&O's. (5) Hypertension: -- Blood pressure is controlled. -- Medications as outlined above. (6) Dyslipidemia: -- Continue Atorvastatin 40 mg daily. (7) Coronary artery calcification: Presumed CAD, suspect that elevated troponin I is secondary to demand ischemia related to severe and decompensated diastolic CHF. -- Continue Atorvastatin 40 mg daily. -- Continue Aspirin 81 mg daily. -- Start Toprol XL 25 mg daily. (8) Aneurysm, thoracic aortic: -- Aortic root dilation is stable at 4.3 cm. -- Management as per Cardiothoracic Surgery. We will continue to follow along while hospitalized. Thank you for asking us to see this in patient consultation. History of Present Illness Reason for Consultation: -- Acute CHF. -- Severe Aortic Stenosis. Requesting Physician: Wilver West Attending Physician: Toñito Paige MD History of Present Illness Mr. 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 When I last met with the patient on 02/12/22 he stated that he woke up every morning and felt great, however as he walked or went about his daily activities he played out relatively quickly. Some days his exertional tolerance was better than others. For example some days he could walk a couple 100 ft and then felt tired and short of breath, on other days he could continue walking for thousands of feet without limiting cardiopulmonary symptoms or excessive fatigue. I did not think this was entirely secondary to his valvular heart disease because his symptoms were not consistently reproducible and he admitted he was noncompliant with his CPAP. He underwent pulmonary function testing on 05/19/22 which showed normal spirometry, no bronchodilator response,and moderately reduced diffusing capacity. Patient then met with his PCP on 06/23/22 after having 2 syncopal episodes over the preceding 2 months. Diuretic were held due to suspected dehydration -- and he did not have any further syncopal episodes but has had some near syncope from time to time. In the ensuing month his exertional dyspnea came on more consistently and gradually got worse. The patient also noted weight gain just from several days prior. Approximately 4 days before admission his SOB, LE, and Orthopnea got much worse so he came into [facility] ER for further evaluation and treatment. In the ER he patient's blood work shows normal white blood cell count, Hgb of 12.4 g/dL (chronic and stable), platelet count is unremarkable. Kidney function and electrolytes unremarkable. The patient's initial hs Troponin I of 43 pg/mL with subsequent values being 50, 43, and 42. BNP is elevated 627 pg/mL. COVID-negative. CXR showed cardiomegaly and pulmonary vasculature prominence. Patient was ordered Lasix 40 mg IV in the ER, and is maintained on IV Lasix 40 mg b.i.d.. EKG showed sinus rhythm with sinus arrhythmia, ST and T-wave abnormalities consider anterior ischemia, ST and T- wave abnormalities consider inferior ischemia. Patient has had a negative fluid balance of 1475 mL. Patient is less SOB today although he has not been up moving around much today. He was able to sleep lying down flat last night and did not have any orthopnea or PND. He specifically denies any exertional chest pain, heaviness, tightness, pressure, or discomfort. He denies any exertional neck, jaw, back, arm pain. He has not had any palpitations or recurrent atrial fibrillation to his knowledge. Patient has not had any symptoms suggestive of stroke or mini stroke. Patient is compliant with his medications and has not had any adverse side effects. ECHOCARDIOGRAM 07/03/22: -- Normal LV systolic function. -- LVEF 60% to 65% without regional wall motion abnormalities. -- Mild concentric LVH. -- Severe aortic stenosis. -- Prolapse of posterior mitral leaflet with a degree of regurgitation although difficult to quantify due to eccentric jet. -- Mild aortic root dilation. ECHOCARDIOGRAM 07/31/21: -- Normal LV systolic function. -- LVEF 60% to 65% without regional wall motion abnormalities. -- Mild concentric LVH. -- Moderate aortic valve stenosis. -- Prolapse of the posterior mitral leaflet. -- Mild aortic root dilation at 4.3 cm. -- Mildly dilated ascending aorta at 4.0 cm in diameter. -- No significant change compared to 06/13/2020 study. Allergies Allergy/AdvReac Type Severity Reaction Status Date / Time baclofen Allergy Unknown Unknown Verified 08/17/22 14:37 cyclobenzaprine Allergy Unknown Unknown Verified 08/17/22 14:37 [From Flexeril] doxazosin Allergy Unknown Unknown Verified 08/17/22 14:37 doxycycline Allergy Unknown Unknown Verified 08/17/22 14:37 duloxetine Allergy Unknown Unknown Verified 08/17/22 14:37 gabapentin Allergy Unknown Unknown Verified 08/17/22 14:37 lisinopril Allergy Unknown Unknown Verified 08/17/22 14:37 naproxen Allergy Unknown Unknown Verified 08/17/22 14:37 nortriptyline [From Pamelor] Allergy Unknown Unknown Verified 08/17/22 14:37 oxcarbazepine Allergy Unknown Unknown Verified 08/17/22 14:37 Penicillins Allergy Unknown Unknown Verified 08/14/22 08:44 Home Medications Medication Instructions Recorded Confirmed Type acetaminophen 500 mg tablet 1,000 mg PO TID PRN fever or pain 11/18/18 08/17/22 Rx #90 tabs mupirocin 2 % topical ointment 1 applic topical BID 7 days #22 04/24/21 08/17/22 Rx grams loratadine 10 mg tablet (Claritin) 10 mg PO DAILY #30 tabs 09/16/21 08/17/22 Rx potassium chloride 20 mEq 20 meq PO QAM #90 tabs 01/27/22 08/17/22 Rx tablet,extended release tamsulosin 0.4 mg capsule 0.4 mg PO HS #90 caps 01/27/22 08/17/22 Rx hydrochlorothiazide 25 mg tablet 25 mg PO QAM #90 tabs 01/30/22 08/17/22 Rx losartan 100 mg tablet 100 mg PO QAM #90 tabs 01/30/22 08/17/22 Rx amlodipine 5 mg tablet 5 mg PO QAM #90 tabs 03/23/22 08/17/22 Rx fluticasone propionate 50 2 spray intranasal DAILY #16 grams 03/24/22 08/17/22 Rx mcg/actuation nasal spray,suspension (Flonase Allergy Relief) atorvastatin 40 mg tablet 40 mg PO QAM #90 tabs 04/22/22 08/17/22 Rx bupropion HCl 150 mg 24 hr tablet, 150 mg PO QAM #90 tabs 05/26/22 08/17/22 Rx extended release (Wellbutrin XL) aspirin 81 mg tablet,delayed 81 mg PO DAILY #90 tabs 06/09/22 08/17/22 Rx release ferrous sulfate 325 mg (65 mg 325 mg PO DAILY #30 tabs 06/18/22 08/17/22 Rx iron) tablet paroxetine HCl 40 mg tablet 40 mg PO QAM #90 tabs 06/18/22 08/17/22 Rx pantoprazole 40 mg tablet,delayed 40 mg PO DAILY #90 tabs 07/27/22 08/17/22 Rx release Patient History Medical History Aneurysm, thoracic aortic pt unaware of size, follows with Dr. Paige Aortic atherosclerosis Aortic stenosis, moderate Aortic stenosis, severe Atrial fibrillation BPH with obstruction/lower urinary tract symptoms Cervical disc disease Chronic sinusitis Cognitive disorder Coronary artery calcification Depression with anxiety Dyslipidemia Encounter for pre-operative examination Glaucoma Hearing loss Hepatic steatosis History of central retinal vein occlusion Hypertension Lower GI bleed no current issues Lower urinary tract symptoms (LUTS) Lumbar spinal stenosis Mitral regurgitation Osteoarthritis PAC (premature atrial contraction) Sleep apnea Stomach ulcer Trigeminal neuralgia received radiation for this, having numbess/tingling to right side of face since this Vitamin D deficiency Surgical History H/O cataract extraction (2013) H/O colonoscopy History of cochlear implant (01/12/12) BILATERAL History of pilonidal cyst removed History of umbilical hernia repair S/P foot surgery, right (12/2010) removal of heel spur S/P laser trabeculoplasty of eye (10/2014) b/l S/P nasal endoscopy with nasal polypectomy (2011) S/P rotator cuff repair b/l shoulders Family History Mother No pertinent family history Other Hypertension Denies family history of Ovarian cancer Prostate cancer Diabetes Myocardial infarction Breast cancer Colorectal cancer Cancer Social History Smoking Status: Never smoker Second Hand Exposure: No; Hx Alcohol Use: No Hx Substance Use: No Preferred Language: Albanian Communication Ability: Effective Visual Impairment: No Limitations Hearing Ability: Cochlear Implant Regional Engagement Consultant Required: No Beliefs That Will Affect Care: None marital status: Current Living Situation: Spouse current occupational status: retired How many Children do You have: 1 Other Information That Helps Us Care for You: No Feels Safe at Home: Yes Safety Concerns: Feels Safe At This Time Childhood Exposure to Second-Hand Smoke: Yes Diet Comment: regular caffeine: Yes (Soda 6 per day. Coffee 1 cup per day.) during the past year weight has: remained stable Dental Care, Regularly: No Physical Activity Frequency: Daily Seatbelt Use: sometimes Sunscreen Use: No Assistive Devices: Cane, Denture - Upper, Denture - Lower and Glasses Physical Exam Physical Exam: GENERAL: Patient in no acute distress. Bilateral hearing aids/cochlear i mplants present. HEENT: Head is atraumatic, normocephalic. EOM's intact. Facies symmetric. No perioral cyanosis. NECK: No JVD. JVP is elevated. Carotid upstrokes are + 2 bilaterally without obvious bruits. CHEST/LUNGS: Mildly diminished breath sounds throughout, otherwise clear. No wheezes, rales, or crackles. CVS: S1 and S2 are regular with with a grade 2/6 crescendo decrescendo basal s ystolic murmur heard best over the right 2nd intercostal space, A2 is diminished but audible. There is also a grade 2/6 apical systolic murmur which radiates to the axilla. No obvious diastolic murmurs. No gallops or rubs. PMI is nonpalpable. No lifts, heaves, or thrills. No abdominal aortic or renal bruits. ABDOMINAL EXAM: Bowel sounds are present. No masses, organomegaly, or tenderness. EXTREMITIES: No clubbing or cyanosis. No edema. Intact radial pulses bilaterally. NEUROLOGIC EXAM: Patient is awake, alert, and oriented. Pleasant and cooperative. Answers questions appropriately. Speech is clear. 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 Results & Data Vital Signs (Past 12 Hours) Vital Signs Temp Pulse Pulse Resp BP Pulse Ox O2 Del Method 08/18/22 03:06 36.4 C L 81 22 136/70 90 Nasal Cannula 08/17/22 22:01 83 08/17/22 23:13 36.8 C 73 18 106/72 96 Nasal Cannula Laboratory Results Laboratory Results - last 24 hr 08/17/22 08/17/22 08/17/22 11:45 11:45 11:45 WBC 6.51 RBC 4.31 L Hgb 12.4 L Hct 38.6 L MCV 89.6 MCH 28.8 MCHC 32.1 RDW Std Deviation 49.6 H RDW Coeff of Herrera 15.0 H Plt Count 252 MPV 9.9 Immature Gran % (Auto) 0.5 Neut % (Auto) 76.8 Lymph % (Auto) 9.2 Crane % (Auto) 10.4 Eos % (Auto) 2.0 Baso % (Auto) 1.1 Neut # (Auto) 5.00 Lymph # (Auto) 0.60 L Crane # (Auto) 0.68 H Eos # (Auto) 0.13 Baso # (Auto) 0.07 Immature Gran # (Auto) 0.03 PT INR Sodium 137 Potassium 3.7 Chloride 106 Carbon Dioxide 24 Anion Gap 7 BUN 22 Creatinine 1.23 Est Cr Clr Drug Dosing 60.1 Est GFR ( Amer) 66.6 Est GFR (Non-Af Amer) 57.5 BUN/Creatinine Ratio 17.9 Glucose 97 Calcium 9.1 Magnesium 1.8 Iron 22 L TIBC 285 Unsaturated IBC 263 Transferrin % Sat 8 L Ferritin 30.1 Total Bilirubin 1.0 AST 14 ALT 11 Alkaline Phosphatase 106 H Lactate Dehydrogenase Troponin I High Sens 43.5 H B-Natriuretic Peptide Total Protein 6.3 Albumin 3.6 Globulin 2.7 Albumin/Globulin Ratio 1.3 Vitamin B12 Folate Urine Color Urine Appearance Urine pH Ur Specific Glidden Urine Protein Urine Glucose (UA) Urine Ketones Urine Blood Urine Nitrite Urine Bilirubin Urine Urobilinogen Ur Leukocyte Esterase SARS-CoV-2, RNA, NAAT 08/17/22 08/17/22 08/17/22 12:40 14:05 14:12 WBC RBC Hgb Hct MCV MCH MCHC RDW Std Deviation RDW Coeff of Herrera Plt Count MPV Immature Gran % (Auto) Neut % (Auto) Lymph % (Auto) Crane % (Auto) Eos % (Auto) Baso % (Auto) Neut # (Auto) Lymph # (Auto) Crane # (Auto) Eos # (Auto) Baso # (Auto) Immature Gran # (Auto) PT INR Sodium Potassium Chloride Carbon Dioxide Anion Gap BUN Creatinine Est Cr Clr Drug Dosing Est GFR ( Amer) Est GFR (Non-Af Amer) BUN/Creatinine Ratio Glucose Calcium Magnesium Cancelled Iron TIBC Unsaturated IBC Transferrin % Sat Ferritin Total Bilirubin AST ALT Alkaline Phosphatase Lactate Dehydrogenase Troponin I High Sens B-Natriuretic Peptide 627 H Total Protein Albumin Globulin Albumin/Globulin Ratio Vitamin B12 Folate Urine Color Urine Appearance Urine pH Ur Specific Glidden Urine Protein Urine Glucose (UA) Urine Ketones Urine Blood Urine Nitrite Urine Bilirubin Urine Urobilinogen Ur Leukocyte Esterase SARS-CoV-2, RNA, NAAT NEGATIVE 08/17/22 08/17/22 08/17/22 16:34 18:33 23:33 WBC RBC Hgb Hct MCV MCH MCHC RDW Std Deviation RDW Coeff of Herrera Plt Count MPV Immature Gran % (Auto) Neut % (Auto) Lymph % (Auto) Crane % (Auto) Eos % (Auto) Baso % (Auto) Neut # (Auto) Lymph # (Auto) Crane # (Auto) Eos # (Auto) Baso # (Auto) Immature Gran # (Auto) PT INR Sodium Potassium Chloride Carbon Dioxide Anion Gap BUN Creatinine Est Cr Clr Drug Dosing Est GFR ( Amer) Est GFR (Non-Af Amer) BUN/Creatinine Ratio Glucose Calcium Magnesium Iron TIBC Unsaturated IBC Transferrin % Sat Ferritin Total Bilirubin AST ALT Alkaline Phosphatase Lactate Dehydrogenase Troponin I High Sens 50.8 H* 43.0 H B-Natriuretic Peptide Total Protein Albumin Globulin Albumin/Globulin Ratio Vitamin B12 Folate Urine Color Yellow Urine Appearance Clear Urine pH 6.0 Ur Specific Glidden 1.006 Urine Protein Negative Urine Glucose (UA) Negative Urine Ketones Negative Urine Blood Negative Urine Nitrite Negative Urine Bilirubin Negative Urine Urobilinogen Negative Ur Leukocyte Esterase Negative SARS-CoV-2, RNA, NAAT 08/18/22 08/18/22 08/18/22 05:57 05:57 05:57 WBC 5.91 RBC 4.30 L Hgb 12.5 L Hct 38.7 L MCV 90.0 MCH 29.1 MCHC 32.3 RDW Std Deviation 48.9 H RDW Coeff of Herrera 14.9 H Plt Count 244 MPV 9.5 Immature Gran % (Auto) Neut % (Auto) Lymph % (Auto) Crane % (Auto) Eos % (Auto) Baso % (Auto) Neut # (Auto) Lymph # (Auto) Crane # (Auto) Eos # (Auto) Baso # (Auto) Immature Gran # (Auto) PT INR Sodium 139 Potassium 4.1 Chloride 105 Carbon Dioxide 27 Anion Gap 7 BUN 23 Creatinine 1.39 Est Cr Clr Drug Dosing 51.5 Est GFR ( Amer) 57.5 Est GFR (Non-Af Amer) 49.6 BUN/Creatinine Ratio 16.5 Glucose 85 Calcium 9.2 Magnesium 2.0 Iron TIBC Unsaturated IBC Transferrin % Sat Ferritin Total Bilirubin 1.1 H AST 14 ALT 11 Alkaline Phosphatase 109 H Lactate Dehydrogenase Troponin I High Sens 42.2 H B-Natriuretic Peptide Total Protein 6.5 Albumin 3.6 Globulin 2.9 Albumin/Globulin Ratio 1.2 Vitamin B12 Folate Urine Color Urine Appearance Urine pH Ur Specific Glidden Urine Protein Urine Glucose (UA) Urine Ketones Urine Blood Urine Nitrite Urine Bilirubin Urine Urobilinogen Ur Leukocyte Esterase SARS-CoV-2, RNA, NAAT 08/18/22 08/18/22 08/18/22 05:57 05:57 05:57 WBC RBC Hgb Hct MCV MCH MCHC RDW Std Deviation RDW Coeff of Herrera Plt Count MPV Immature Gran % (Auto) Neut % (Auto) Lymph % (Auto) Crane % (Auto) Eos % (Auto) Baso % (Auto) Neut # (Auto) Lymph # (Auto) Crane # (Auto) Eos # (Auto) Baso # (Auto) Immature Gran # (Auto) PT 12.0 INR 1.1 Sodium Potassium Chloride Carbon Dioxide Anion Gap BUN Creatinine Est Cr Clr Drug Dosing Est GFR ( Amer) Est GFR (Non-Af Amer) BUN/Creatinine Ratio Glucose Calcium Magnesium Iron TIBC Unsaturated IBC Transferrin % Sat Ferritin Total Bilirubin AST ALT Alkaline Phosphatase Lactate Dehydrogenase 246 H Troponin I High Sens B-Natriuretic Peptide Total Protein Albumin Globulin Albumin/Globulin Ratio Vitamin B12 435 Folate 13.32 Urine Color Urine Appearance Urine pH Ur Specific Glidden Urine Protein Urine Glucose (UA) Urine Ketones Urine Blood Urine Nitrite Urine Bilirubin Urine Urobilinogen Ur Leukocyte Esterase SARS-CoV-2, RNA, NAAT Diagnostic Findings CXR 08/17/22: An AP, portable, upright chest radiograph is compared to study dated 03/11/2021 and correlated with chest CT dated 11/15/2018. The heart is enlarged note atherosclerotic calcification of the thoracic aorta. There is prominence of the pulmonary vasculature. Chronic interstitial thickening is unchanged. No pneumothorax is seen noting bibasilar scarring/atelectasis. The skeletal structures are osteopenic. The bony thorax is grossly intact. Arthritic change is seen in the shoulders. Superior subluxation of the humeral heads suggest chronic bilateral rotator cuff injury. IMPRESSION: -- Cardiomegaly with prominence of the pulmonary vasculature. Correlate clinically for evidence of fluid overload/congestive change. Medications Administered Medication List Atorvastatin Calcium (Atorvastatin 40 Mg Tab) 40 mg PO QAM [facility] Stop: 09/17/22 08:59 Last Admin: 08/18/22 09:40 Dose: 40 mg Documented By: BRENDA Bupropion HCl (Bupropion Xl 150 Mg Tabcr) 150 mg PO QAM [facility] Stop: 09/17/22 08:59 Last Admin: 08/18/22 09:41 Dose: 150 mg Documented By: BRENDA Ferrous Sulfate (Ferrous Sulfate 325 Mg Tab) 325 mg PO DAILY [facility] Stop: 09/17/22 08:59 Last Admin: 08/18/22 08:59 Dose: 325 mg Documented By: BRENDA Fluticasone Propionate (Fluticasone Propionate Na Spr 16 Gm Btl) 2 sprays DIDIER DAILY [facility] Stop: 09/17/22 08:59 Last Admin: 08/18/22 08:59 Dose: 2 sprays Documented By: BRENDA Furosemide (Furosemide 40 Mg/4 Ml Vial) 40 mg IV BID17 [facility] Stop: 09/17/22 08:59 Last Admin: 08/18/22 08:59 Dose: 40 mg Documented By: BRENDA Loratadine (Loratadine 10 Mg Tab) 10 mg PO DAILY [facility] Stop: 09/17/22 08:59 Last Admin: 08/18/22 08:58 Dose: 10 mg Documented By: BRENDA Losartan Potassium (Losartan Potassium 50 Mg Tab) [facility] Stop: 09/17/22 08:59 Last Admin: 08/18/22 08:58 Dose: 100 mg Documented By: BRENDA Pantoprazole Sodium (Pantoprazole 40 Mg Tab) 40 mg PO DAILY [facility] Stop: 09/17/22 08:59 Last Admin: 08/18/22 09:41 Dose: 40 mg Documented By: BRENDA Paroxetine HCl (Paroxetine Hcl 20 Mg Tab) [facility] Stop: 09/17/22 08:59 Last Admin: 08/18/22 09:41 Dose: 40 mg Documented By: BRENDA Potassium Chloride (Potassium Chloride Crtab 20 Meq Tabcr) 20 meq PO [facility] Stop: 09/17/22 08:59 Last Admin: 08/18/22 08:59 Dose: 20 meq Documented By: BRENDA Tamsulosin HCl (Tamsulosin Hcl 0.4 Mg Cap) 0.4 mg PO HS [facility] Stop: 09/16/22 20:59 Last Admin: 08/17/22 21:12 Dose: 0.4 mg Documented By: SALES SUPPORT TECHNICIAN Discontinued Medications Furosemide (Furosemide 40 Mg/4 Ml Vial) 40 mg IV ONE ONE Stop: 08/17/22 13:36 Last Admin: 08/17/22 13:52 Dose: 40 mg Documented By: AUDELIA Furosemide (Furosemide Inj 20 Mg/2 Ml Vial) 20 mg IV ONE ONE Stop: 08/17/22 18:31 Last Admin: 08/17/22 18:41 Dose: 20 mg Documented By: FIDELINA Iron Sucrose 300 mg/ Sodium (Chloride) 265 mls @ 176.667 mls/hr IV TODAY@1900 ONE Stop: 08/17/22 20:29 Last Infusion: 08/17/22 21:15 Dose: 0 mls/hr Documented By: SALES SUPPORT TECHNICIAN Admin: 08/17/22 19:42 Dose: 176.7 mls/hr Documented By: SALES SUPPORT TECHNICIAN Magnesium Sulfate/Dextrose (Magnesium Sulfate / D5w) 1 gm in 100 mls @ 50 mls/hr IV Q2H [facility] Stop: 08/17/22 22:14 Last Infusion: 08/17/22 23:11 Dose: 0 mls/hr Documented By: Admin: 08/17/22 21:11 Dose: 50 mls/hr Documented By: Infusion: 08/17/22 20:40 Dose: 50 mls/hr Documented By: Admin: 08/17/22 18:40 Dose: 50 mls/hr Documented By: FIDELINA Potassium Chloride (Potassium Chloride Crtab 20 Meq Tabcr) 20 meq PO NOW STA Stop: 08/17/22 18:16 Last Admin: 08/17/22 18:34 Dose: Not Given Documented By: FIDELINA Potassium Chloride (Potassium Chloride Crtab 20 Meq Tabcr) 40 meq PO NOW STA Stop: 08/17/22 18:24 Last Admin: 08/17/22 18:40 Dose: 40 meq Documented By: FIDELINA PG Care Time/CCT Total # of Minutes Spent Total Time Spent with Patient: Total time spent is greater than 50% in coordination of care (as documented) at patient's floor/unit and/or counseling patient:42 [place] [address] INT INP/OBS CARE 2/55MIN Patient Type Established History Detailed Exam Detailed Medical Decision Making High Complexity Diagnoses Acute heart failure with preserved ejection fraction I50.31 Aortic stenosis, severe I35.0 MVP (mitral valve prolapse) I34.1 Mitral regurgitation I34.0 Hypertension I10 Dyslipidemia E78.5 Coronary artery calcification I25.10; I25.84 Aneurysm, thoracic aortic I71.2 Time Spent (min) 66
[2022-08-18] MEDS: ATORVASTATIN 40 MG TAB PO SCH (09:40)
[2022-08-18] MEDS: PARoxetine HCL 20 MG TAB PO SCH (09:41)
[2022-08-18] MEDS: buPROPion XL 150 MG TABCR PO SCH (09:41)
[2022-08-18] MEDS: PANTOprazole 40 MG TAB PO SCH (09:41)
[2022-08-18] MEDS: TAMSULOSIN HCL 0.4 MG CAP PO SCH (20:12)
--- NOTE | 2022-08-18 20:34 | Hospitalist Progress Note ---
Date of Service August 18, 2022 Assessment & Plan (1) Acute heart failure with preserved ejection fraction: Plan: acute/chronic diastolic CHF. improved volume status s/p IV diuresis. cont lasix IV 40mg BID. appreciate cards consultation. #2 could be contributing to decompensation. (2) Aortic stenosis, severe: Plan: noted on echo along with mitral valve disease if patient progresses well through this visit will be referred to valve clinic at [facility] [place] or [facility] [place] post-d/c to assess candidacy for traditional valve replacement vs TAVR +/- intervention on #3 (3) MVP (mitral valve prolapse): (4) BPH with obstruction/lower urinary tract symptoms: Plan: cont flomax (5) Atrial fibrillation: Plan: NSR on monitor overnight cont tele not on chronic AC due to prior episodes of severe epistaxis?? (6) Trigeminal neuralgia: Plan: not on meds for such (7) Hearing loss: (8) Hypertension: Plan: controlled (9) Aneurysm, thoracic aortic: Plan: stable on most recent imaging (10) History of cochlear implant: (11) Iron deficiency: Plan: ferritin 30 venofer x 1 given yesterday will give another dose tomorrow Plan will need PT/OT evals family updated at bedside Admission and Anticipated Discharge Date Admission Date: August 17, 2022 Subjective patient's breathing is doing much better no dyspnea at rest eating well tele overnight - NSR family at bedside and updated Review of Systems Review of Systems: gen - no fevers; good appetite; energy has been poor/fatigued cv - no chest pain pulm - no dyspnea at rest GI - no N/V or pain Physical Exam Physical Exam: gen - NAD, pleasant HEENT - cochlear implant; hearing impairment; MMM neck - mild JVD present heart - RRR, s1 s2, 3/6 holosystolic murmur RUSB (loudest); s2 is heard lungs - b/l faint rales bases abd - soft NT ND BS+ ext - pulses 2+ b/l, trace edema b/l psych - a/o x 3 Results & Data Results & Data Vital Signs (Past 12 Hours) Vital Signs Temp Pulse Resp BP Pulse Ox O2 Del Method O2 Flow Rate 08/18/22 19:34 36.7 C 67 19 122/79 93 Nasal Cannula 3 08/18/22 15:00 36.5 C 89 16 128/67 95 Room Air 03/28/23 14:00 Room Air 08/18/22 11:00 36.5 C 97 H 18 125/60 97 Room Air Laboratory Results Cr 1.39 ferritin 30 Hb 12.5 WBC 5.9 PG Care Time/CCT Total # of Minutes Spent Total Time Spent with Patient: Total time spent is greater than 50% in coordination of care (as documented) at patient's floor/unit and/or counseling patient: Coding Level of Care Code 51154 SUB INP/OBS CARE 2/35MIN Diagnoses Acute heart failure with preserved ejection fraction I50.31 Aortic stenosis, severe I35.0 MVP (mitral valve prolapse) I34.1 BPH with obstruction/lower urinary tract symptoms N40.1; N13.8 Atrial fibrillation I48.91 Trigeminal neuralgia G50.0 Hearing loss H91.90 Hypertension I10 Aneurysm, thoracic aortic I71.2 History of cochlear implant Z96.21 Iron deficiency E61.1
[2022-08-19 07:50] LABS: BUN Creatinine Ratio 20.7 (10-20); Calcium 8.9 mg/dl (8.6-10.3); Est GFR (African American) 54.6 ml/min; Est GFR (Non-African American) 47.1 ml/min; Magnesium 1.8 mg/dl (1.7-2.4); Potassium 3.4 mmol/L (3.5-5.1)
[2022-08-19] MEDS: buPROPion XL 150 MG TABCR PO SCH (07:57)
[2022-08-19] MEDS: LOSARTAN POTASSIUM 50 MG TAB PO SCH (07:57)
[2022-08-19] MEDS: ATORVASTATIN 40 MG TAB PO SCH (07:57)
[2022-08-19] MEDS: PARoxetine HCL 20 MG TAB PO SCH (07:58)
[2022-08-19] MEDS: PANTOprazole 40 MG TAB PO SCH (07:58)
[2022-08-19] MEDS: FERROUS SULFATE 325 MG TAB PO SCH (07:58)
[2022-08-19] MEDS: FLUTICASONE PROPIONATE NA SPR 16 GM BTL NAE SCH (07:58)
[2022-08-19] MEDS: LORATADINE 10 MG TAB PO SCH (07:58)
[2022-08-19] MEDS: POTASSIUM CHLORIDE CRTAB 20 MEQ TABCR PO SCH ×3 (07:58→21:55)
[2022-08-19] MEDS: FUROSEMIDE 40 MG/4 ML VIAL IV SCH ×2 (07:59→16:30)
--- NOTE | 2022-08-19 09:31 | Cardiology Progress Note ---
Date of Service August 19, 2022 Assessment & Plan (1) Acute heart failure with preserved ejection fraction: (2) Aortic stenosis, severe: (3) MVP (mitral valve prolapse): (4) Mitral regurgitation: Plan: Mr. 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 Patient met with his PCP on 06/23/22 after having 2 syncopal episodes over the preceding 2 months. Diuretic were held due to suspected dehydration -- and he did not have any further syncopal episodes but has had some near syncope from time to time. In the ensuing month his exertional dyspnea came on more consistently and gradually got worse. The patient also noted weight gain just from several days prior. Approximately 4 days before admission his SOB, LE, and Orthopnea got much worse so he came into [facility] ER for further evaluation and treatment. In the ER he patient's blood work shows normal white blood cell count, Hgb of 12.4 g/dL (chronic and stable), platelet count is unremarkable. Kidney function and electrolytes are unremarkable. The patient's initial hs Troponin I of 43 pg/mL with subsequent values being 50, 43, and 42 pg/mL. BNP is elevated 627 pg/mL. COVID-negative. CXR showed cardiomegaly and pulmonary vasculature prominence. Patient was ordered Lasix 40 mg IV in the ER, and is maintained on IV Lasix 40 mg b.i.d.. EKG showed sinus rhythm with sinus arrhythmia, ST and T-wave abnormalities consider anterior ischemia, ST and T- wave abnormalities consider inferior ischemia. Patient has had a negative fluid balance of 3160 mL. He is less short of breath today and is feeling much better overall. He does not have any shortness of breath at rest, only if he moves around too much -- but even then it is much better than it was prior to admission. He slept lie down flat last night and did not have any orthopnea or PND. Patient has not had any angina pectoris or anginal equivalent symptoms, nor has had any recurrence of atrial fibrillation to his knowledge. Patient has not had any symptoms suggestive of stroke or mini stroke. Patient is mildly hypokalemic today with a serum potassium level of 3.4 mmol/L. Patient has had progression of his aortic valvular disease, and he has at least moderate mitral regurgitation with posterior mitral leaflet prolapse. He is at the point that he needs his aortic valve replaced +/- intervention on his mitral valve. Patient is responding well to diuresis and is approaching a euvolemic state. We will see him soon after discharge and make arrangements for a cardiac catheterization prior to aortic valve replacement vs TAVR +/- possible intervention on his mitral valve. Recommend the followin. Continue Lasix 40 mg IV b.i.d. until compensated. 2. Start Toprol XL 25 mg daily, closely monitor blood pressures. 3. He will likely have benefit with Jardiance 10 mg daily as well. 4. Remain off of Amlodipine. 5. Continue Losartan 100 mg daily. 6. 2 g low-sodium diet. 7. Monitor daily body weights, I&O's. (5) Hypertension: Plan: -- Blood pressure is controlled. -- Medications as outlined above. (6) Dyslipidemia: Plan: -- Continue Atorvastatin 40 mg daily. (7) Coronary artery calcification: Plan: Presumed CAD, suspect that elevated troponin I is secondary to demand ischemia related to severe and decompensated diastolic CHF. -- Continue Atorvastatin 40 mg daily. -- Continue Aspirin 81 mg daily. -- Start Toprol XL 25 mg daily. (8) Aneurysm, thoracic aortic: Plan: -- Aortic root dilation is stable at 4.3 cm. -- Management as per Cardiothoracic Surgery. We will continue to follow along while hospitalized and following discharge. Admission and Anticipated Discharge Date Admission Date: August 17, 2022 Subjective Mr Snyder states that he is doing better today. His body weight is down to 91 kg, and he has had a negative fluid balance of 3160 mL. Patient still notices some mild exertional dyspnea if he moves around or walks too much, but he is much better than he was at the time of admission. Patient offers no other complaints. He denies any exertional chest pain, heaviness, tightness, pressure, or discomfort. He denies any exertional neck, jaw, back, or arm pain. He denies any shortness of breath at rest, orthopnea, or PND. He was able to sleep lying down flat last night. He has not had any palpitations, syncope, or near syncope. Review of Systems Review of Systems: 10 point ROS completed and is negative with the exception of what is mentioned in the HPI. Physical Exam Physical Exam: GENERAL: Patient in no acute distress. Bilateral hearing aids/cochlear implants present. HEENT: Head is atraumatic, normocephalic. EOM's intact. Facies symmetric. No perioral cyanosis. NECK: No JVD. JVP is just above the clavicle. Carotid upstrokes are + 2 bilaterally without obvious bruits. CHEST/LUNGS: Mildly diminished breath sounds throughout, otherwise clear. No wheezes, rales, or crackles. CVS: S1 and S2 are regular with with a grade 2/6 crescendo decrescendo basal systolic murmur heard best over the right 2nd intercostal space, A2 is diminished but audible. There is also a grade 2/6 apical systolic murmur which radiates to the axilla. No obvious diastolic murmurs. No gallops or rubs. PMI is nonpalpable. No lifts, heaves, or thrills. No abdominal aortic or renal bruits. ABDOMINAL EXAM: Bowel sounds are present. No masses, organomegaly, or tenderness. EXTREMITIES: No clubbing or cyanosis. No edema. Intact radial pulses bilaterally. NEUROLOGIC EXAM: Patient is awake, alert, and oriented. Pleasant and cooperative. Answers questions appropriately. Speech is clear. 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 Results & Data Vital Signs (Past 12 Hours) Vital Signs Temp Pulse Resp BP Pulse Ox O2 Del Method O2 Flow Rate 08/19/22 07:06 36.8 C 89 18 103/65 96 Room Air 08/19/22 04:54 97 Nasal Cannula 2 08/19/22 02:59 36.8 C 83 18 113/76 96 Nasal Cannula 3 08/18/22 22:42 36.6 C 92 H 18 110/76 100 Nasal Cannula 3 Laboratory Results Laboratory Results - last 24 hr 08/19/22 05:28 Sodium 138 Potassium 3.4 L Chloride 102 Carbon Dioxide 29 Anion Gap 7 BUN 30 H Creatinine 1.45 H Est Cr Clr Drug Dosing 49.0 Est GFR ( Amer) 54.6 Est GFR (Non-Af Amer) 47.1 BUN/Creatinine Ratio 20.7 H Glucose 120 H Calcium 8.9 Magnesium 1.8 Medications Administered Medication List Atorvastatin Calcium (Atorvastatin 40 Mg Tab) 40 mg PO QAM [facility] Stop: 09/17/22 08:59 Last Admin: 08/19/22 07:57 Dose: 40 mg Documented By: Admin: 08/18/22 09:40 Dose: 40 mg Documented By: BRENDA Bupropion HCl (Bupropion Xl 150 Mg Tabcr) [facility] Stop: 09/17/22 08:59 Last Admin: 08/19/22 07:57 Dose: 150 mg Documented By: Admin: 08/18/22 09:41 Dose: 150 mg Documented By: BRENDA Ferrous Sulfate (Ferrous Sulfate 325 Mg Tab) 325 mg PO DAILY [facility] Stop: 09/17/22 08:59 Last Admin: 08/19/22 07:58 Dose: 325 mg Documented By: Admin: 08/18/22 08:59 Dose: 325 mg Documented By: BRENDA Fluticasone Propionate (Fluticasone Propionate Na Spr 16 Gm Btl) 2 sprays DIDIER DAILY [facility] Stop: 09/17/22 08:59 Last Admin: 08/19/22 07:58 Dose: 2 sprays Documented By: Admin: 08/18/22 08:59 Dose: 2 sprays Documented By: BRENDA Furosemide (Furosemide 40 Mg/4 Ml Vial) 40 mg IV BID17 [facility] Stop: 09/17/22 08:59 Last Admin: 08/19/22 07:59 Dose: 40 mg Documented By: Admin: 08/18/22 17:08 Dose: 40 mg Documented By: Admin: 08/18/22 08:59 Dose: 40 mg Documented By: BRENDA Loratadine (Loratadine 10 Mg Tab) 10 mg PO DAILY [facility] Stop: 09/17/22 08:59 Last Admin: 08/19/22 07:58 Dose: 10 mg Documented By: Admin: 08/18/22 08:58 Dose: 10 mg Documented By: BRENDA Losartan Potassium (Losartan Potassium 50 Mg Tab) 100 mg PO QAM [facility] Stop: 09/17/22 08:59 Last Admin: 08/19/22 07:57 Dose: 100 mg Documented By: Admin: 08/18/22 08:58 Dose: 100 mg Documented By: BRENDA Pantoprazole Sodium (Pantoprazole 40 Mg Tab) 40 mg PO DAILY [facility] Stop: 09/17/22 08:59 Last Admin: 08/19/22 07:58 Dose: 40 mg Documented By: Admin: 08/18/22 09:41 Dose: 40 mg Documented By: BRENDA Paroxetine HCl (Paroxetine Hcl 20 Mg Tab) 40 mg [facility] Stop: 09/17/22 08:59 Last Admin: 08/19/22 07:58 Dose: 40 mg Documented By: Admin: 08/18/22 09:41 Dose: 40 mg Documented By: BRENDA Potassium Chloride (Potassium Chloride Crtab 20 Meq Tabcr) 20 meq [facility] Stop: 09/17/22 08:59 Last Admin: 08/19/22 07:58 Dose: 20 meq Documented By: Admin: 08/18/22 08:59 Dose: 20 meq Documented By: BRENDA Tamsulosin HCl (Tamsulosin Hcl 0.4 Mg Cap) 0.4 mg PO HS [facility] Stop: 09/16/22 20:59 Last Admin: 08/18/22 20:12 Dose: 0.4 mg Documented By: Admin: 08/17/22 21:12 Dose: 0.4 mg Documented By: MARIAMA Discontinued Medications Furosemide (Furosemide 40 Mg/4 Ml Vial) 40 mg IV ONE ONE Stop: 08/17/22 13:36 Last Admin: 08/17/22 13:52 Dose: 40 mg Documented By: AUDELIA Furosemide (Furosemide Inj 20 Mg/2 Ml Vial) 20 mg IV ONE ONE Stop: 08/17/22 18:31 Last Admin: 08/17/22 18:41 Dose: 20 mg Documented By: FIDELINA Iron Sucrose 300 mg/ Sodium (Chloride) 265 mls @ 176.667 mls/hr IV TODAY@1900 ONE Stop: 08/17/22 20:29 Last Infusion: 08/17/22 21:15 Dose: 0 mls/hr Documented By: Admin: 08/17/22 19:42 Dose: 176.7 mls/hr Documented By: MARIAMA Magnesium Sulfate/Dextrose (Magnesium Sulfate / D5w) 1 gm in 100 mls @ 50 mls/hr IV Q2H [facility] Stop: 03/27/23 22:14 Last Infusion: 08/17/22 23:11 Dose: 0 mls/hr Documented By: Admin: 08/17/22 21:11 Dose: 50 mls/hr Documented By: Infusion: 08/17/22 20:40 Dose: 50 mls/hr Documented By: Admin: 08/17/22 18:40 Dose: 50 mls/hr Documented By: FIDELINA Potassium Chloride (Potassium Chloride Crtab 20 Meq Tabcr) 20 meq PO NOW STA Stop: 08/17/22 18:16 Last Admin: 08/17/22 18:34 Dose: Not Given Documented By: FIDELINA Potassium Chloride (Potassium Chloride Crtab 20 Meq Tabcr) 40 meq PO NOW STA Stop: 08/17/22 18:24 Last Admin: 08/17/22 18:40 Dose: 40 meq Documented By: FIDELINA PG Care Time/CCT Total # of Minutes Spent Total Time Spent with Patient: Total time spent is greater than 50% in coordination of care (as documented) at patient's floor/unit and/or counseling patient:26 Coding [place] [address] SUB INP/OBS CARE 3/50MIN Patient Type Established History Detailed Exam Detailed Medical Decision Making High Complexity Diagnoses Acute heart failure with preserved ejection fraction I50.31 Aortic stenosis, severe I35.0 MVP (mitral valve prolapse) I34.1 Mitral regurgitation I34.0 Hypertension I10 Dyslipidemia E78.5 Coronary artery calcification I25.10; I25.84 Aneurysm, thoracic aortic I71.2 Time Spent (min) 52
[2022-08-19] MEDS ORDERED: IRON SUCROSE 300 MG in SODIUM CHLORIDE 0.9% 250 ML IV ONE (10:00)
--- NOTE | 2022-08-19 21:42 | Hospitalist Progress Note ---
Date of Service August 19, 2022 Assessment & Plan (1) Acute heart failure with preserved ejection fraction: Plan: acute/chronic diastolic CHF. improving. stable Creatinine with diuresis. appreciate cardiology assistance. cont lasix IV 40mg BID. suspect we are approaching euvolemia as he was laying flat and breath sounds are nearly normal. await AM labs tomorrow to determine ongoing need for IV lasix. #2 could be contributing to decompensation. (2) Aortic stenosis, severe: Plan: noted on echo along with mitral valve disease if patient progresses well through this visit will be referred to valve clinic at [facility] [place] or [facility] [place] post-d/c to assess candidacy for traditional valve replacement vs TAVR +/- intervention on #3 (3) MVP (mitral valve prolapse): Plan: see above (4) BPH with obstruction/lower urinary tract symptoms: Plan: cont flomax no issues (5) Atrial fibrillation: Plan: NSR on monitor overnight once again cont tele not on chronic AC due to prior episodes of severe epistaxis?? (6) Trigeminal neuralgia: Plan: not on meds for such (7) Hearing loss: Plan: has cochlear implant (8) Hypertension: Plan: controlled (9) Aneurysm, thoracic aortic: Plan: stable on most recent imaging (10) History of cochlear implant: (11) Iron deficiency: Plan: ferritin 30 venofer x 1 given yesterday will give another dose today then another dose tomorrow Plan PT/OT evals ordered family updated at bedside yesterday progressing nicely Admission and Anticipated Discharge Date Admission Date: August 17, 2022 Subjective patient lying completely flat in bed during the visit without orthopnea states he walked today -- no dyspnea, "just fatigued" he has been "tired" for weeks robust appetite - eating 100% of meals no cough no chest pain no new complaints tele - NSR Review of Systems Review of Systems: gen - no fevers cv - no PND/orthopnea pulm - no dyspnea at rest GI - no N/V/pain Physical Exam Physical Exam: gen - NAD, pleasant HEENT - cochlear implant; hearing impairment; MMM heart - RRR, s1 s2, 3/6 holosystolic murmur RUSB (loudest); s2 is audible lungs - b/l faint rales bases - minimal today; excellent airation abd - soft NT ND BS+ ext - pulses 2+ b/l, no edema b/l psych - a/o x 3 Results & Data Results & Data Vital Signs (Past 12 Hours) Vital Signs Temp Pulse Pulse Resp BP Pulse Ox O2 Del Method 08/19/22 20:10 36.6 C 84 20 96/64 L 95 Nasal Cannula 08/19/22 16:00 36.8 C 74 18 128/76 97 Room Air 08/19/22 15:37 84 08/19/22 12:00 36.9 C 96 H 20 115/61 96 Room Air O2 Flow Rate 08/19/22 20:10 2.0 08/19/22 16:00 08/19/22 15:37 08/19/22 12:00 Laboratory Results Laboratory Results - last 24 hr 08/19/22 05:28 Sodium 138 Potassium 3.4 L Chloride 102 Carbon Dioxide 29 Anion Gap 7 BUN 30 H Creatinine 1.45 H Est Cr Clr Drug Dosing 49.0 Est GFR ( Amer) 54.6 Est GFR (Non-Af Amer) 47.1 BUN/Creatinine Ratio 20.7 H Glucose 120 H Calcium 8.9 Magnesium 1.8 PG Care Time/CCT Total # of Minutes Spent Total Time Spent with Patient: Total time spent is greater than 50% in coordination of care (as documented) at patient's floor/unit and/or counseling patient: Coding Level of Care Code 40506 SUB INP/OBS CARE 2/35MIN Diagnoses Acute heart failure with preserved ejection fraction I50.31 Aortic stenosis, severe I35.0 MVP (mitral valve prolapse) I34.1 BPH with obstruction/lower urinary tract symptoms N40.1; N13.8 Atrial fibrillation I48.91 Trigeminal neuralgia G50.0 Hearing loss H91.90 Hypertension I10 Aneurysm, thoracic aortic I71.2 History of cochlear implant Z96.21 Iron deficiency E61.1
[2022-08-19] MEDS: TAMSULOSIN HCL 0.4 MG CAP PO SCH (21:55)
[2022-08-20 06:44] LABS: BUN Creatinine Ratio 28.4 (10-20); Calcium 9.3 mg/dl (8.6-10.3); Est GFR (African American) 60.1 ml/min; Est GFR (Non-African American) 51.8 ml/min; Potassium 4.1 mmol/L (3.5-5.1)
[2022-08-20] MEDS: POTASSIUM CHLORIDE CRTAB 20 MEQ TABCR PO SCH ×3 (07:59→20:57)
[2022-08-20] MEDS: PANTOprazole 40 MG TAB PO SCH (08:00)
[2022-08-20] MEDS: buPROPion XL 150 MG TABCR PO SCH (08:00)
[2022-08-20] MEDS: FERROUS SULFATE 325 MG TAB PO SCH (08:00)
[2022-08-20] MEDS: LORATADINE 10 MG TAB PO SCH (08:00)
[2022-08-20] MEDS: FLUTICASONE PROPIONATE NA SPR 16 GM BTL NAE SCH (08:00)
[2022-08-20] MEDS: LOSARTAN POTASSIUM 50 MG TAB PO SCH (08:00)
[2022-08-20] MEDS: ATORVASTATIN 40 MG TAB PO SCH (08:00)
[2022-08-20] MEDS: PARoxetine HCL 20 MG TAB PO SCH (08:00)
[2022-08-20] MEDS: FUROSEMIDE 40 MG/4 ML VIAL IV SCH ×2 (08:00→16:58)
[2022-08-20] MEDS ORDERED: LOSARTAN POTASSIUM 50 MG TAB PO SCH (09:00)
[2022-08-20] MEDS ORDERED: IRON SUCROSE 300 MG in SODIUM CHLORIDE 0.9% 250 ML IV ONE (09:30)
--- NOTE | 2022-08-20 20:59 | CT Scan Report ---
HEAD CT NONCONTRAST CT DOSE: 1228.53 mGy.cm HISTORY: dizziness, falling to the right TECHNIQUE: Multiaxial CT images of the head were performed without the use of intravenous contrast. A utomated exposure control was utilized for this study. A dose lowering technique was utilized adheri ng to the principles of ALARA. Comparison: Head CT 07/01/2022. Findings: The paranasal sinuses and mastoid air cells are clear. Bilateral cochlear implants again re sult in metallic artifact the brain. The calvarium and skull base are intact. The ventricles and sulc i demonstrate mild age-related involutional changes. There is no definite mass, hematoma, midline angel ft, acute infarct. Impression: Metallic artifact from the patient's bilateral cochlear implants resulting in suboptimal evaluation. However, no definite acute intracranial abnormality. ACT 112: Negative or not required by law. Electronically signed by: Justo Melissa M.D. 08/20/2022 8:57 PM
--- NOTE | 2022-08-20 21:29 | Hospitalist Progress Note ---
Date of Service August 20, 2022 Assessment & Plan (1) Acute heart failure with preserved ejection fraction: Plan: acute/chronic diastolic CHF. appears compensated today or even slightly dry as he is dizzy with standing and BPs are low in the 90s systolically this afternoon. stop IV lasix. HOLD losartan and flomax due to low BP and dizziness. stable Creatinine with diuresis however. appreciate cardiology assistance. ideally he is on beta sid moving forward but defer on starting until we trend BPs overnight (2) Aortic stenosis, severe: Plan: noted on echo along with mitral valve disease if patient progresses well through this visit will be referred to [place] clinic [place] [facility] [place] [facility] [place] to assess candidacy for traditional valve replacement vs TAVR +/- intervention on #3 (3) Chest pain: Plan: 10 sec episode this am he never told any one until hours later no recurrent symptoms since EKG with ongoing anterior T wave inversions - maybe slightly worse today ultimately needs cath in preparation for valve surgery for will d/w cardiology will add asa 81mg daily to be safe add metoprolol xl 25mg daily tomorrow if BPs allow chest pain could be underlying, undiagnosed CAD or from itself (4) Dizziness: Plan: likely due to low BPs -- although he states he feels like he could fall to his right side which would suggest cerebellar dysfunction CT head obtained today - negative; cannot get MRI due to cochlear implants HOLD losartan STOP IV lasix HOLD flomax allow BPs to normalize (5) MVP (mitral valve prolapse): Plan: see above (6) BPH with obstruction/lower urinary tract symptoms: Plan: hold flomax temporarily due to low BPs no issues or LUTS however (7) Atrial fibrillation: Plan: NSR on monitor overnight once again cont tele not on chronic AC due to prior episodes of severe epistaxis?? (8) Trigeminal neuralgia: Plan: not on meds for such right side of face (9) Hearing loss: Plan: has cochlear implant (10) Hypertension: Plan: controlled - actually low today and symptomatic from sduch stop IV lasix HOLD losartan HOLD flomax ideally he is on beta sid - follow BPs overnight (11) Aneurysm, thoracic aortic: Plan: stable on most recent imaging (12) History of cochlear implant: (13) Iron deficiency: Plan: ferritin 30 give 3rd dose of Venofer today then stop Plan PT/OT evals completed - PT advises rehab, OT suggests home with HH will need to see how he progresses Admission and Anticipated Discharge Date Admission Date: August 17, 2022 Subjective continues to feel tired, fatigued, and "not great" this is despite copious diuresis when he walked in room today he was tired and "a little short of breath" he also complains of dizziness any time he stands no vertigo more of a lightheaded feeling, but also describes feeling like he could fall to his right side had a brief, 10 sec episode of chest pain early this am - he didn't mention it to anyone for several hours after it happened I was alerted to this, and I obtained EKG - continues with deep T wave inversions anteriorly, and they are a little worse tele overnight - NSR Review of Systems Review of Systems: gen - continues to eat robustly; no fevers cv - no orthopnea, no PND, no edema pulm - still a little dyspnea on exertion; o2 sats at rest mid 90s in room air during the visit GI - no N/V neuro - denies focal motor weakness of arms/legs Physical Exam Physical Exam: gen - NAD, pleasant, sitting in chair comfortably HEENT - cochlear implant b/l; hearing impairment; MMM heart - RRR, s1 s2, 3/6 holosystolic murmur RUSB; s2 is audible lungs - CTA b/l, no rales, no wheeze, normal airation abd - soft NT ND BS+ ext - pulses 2+ b/l, no edema b/l psych - a/o x 3 neuro - strength 5/5 x 4 exts; no facial droop; finger/nose/finger maneuver w/o dysmetria b/l Results & Data Results & Data Vital Signs (Past 12 Hours) Vital Signs Temp Pulse Pulse Resp BP Pulse Ox Pulse Ox 08/20/22 18:45 36.6 C 08/20/22 15:30 76 08/20/22 15:17 36.7 C 88 20 101/68 92 08/20/22 12:46 95 08/20/22 10:29 36.5 C 82 18 92/60 L 96 Pulse Ox Pulse Ox O2 Del Method O2 Flow Rate O2 Flow Rate O2 Flow Rate O2 Flow Rate 08/20/22 18:45 08/20/22 15:30 03/30/23 15:17 Room Air 08/20/22 12:46 94 92 1.5 1.5 1.5 08/20/22 10:29 Nasal Cannula 1 Laboratory Results Laboratory Results - last 24 hr 08/20/22 05:26 Sodium 138 Potassium 4.1 D Chloride 101 Carbon Dioxide 29 Anion Gap 8 BUN 38 H Creatinine 1.34 Est Cr Clr Drug Dosing 53.0 Est GFR ( Amer) 60.1 Est GFR (Non-Af Amer) 51.8 BUN/Creatinine Ratio 28.4 H Glucose 88 Calcium 9.3 Diagnostic Findings EKG - my reading - NSR, T wave inversions (deep) anteriorly - maybe slightly worse; PACs PG Care Time/CCT Total # of Minutes Spent Total Time Spent with Patient: Total time spent is greater than 50% in coordination of care (as documented) at patient's floor/unit and/or counseling patient: Coding Level of Care Code 02273 SUB INP/OBS CARE 3/50MIN Diagnoses Acute heart failure with preserved ejection fraction I50.31 Aortic stenosis, severe I35.0 Chest pain R07.9 Dizziness R42 MVP (mitral valve prolapse) I34.1 BPH with obstruction/lower urinary tract symptoms N40.1; N13.8 Atrial fibrillation I48.91 Trigeminal neuralgia G50.0 Hearing loss H91.90 Hypertension I10 Aneurysm, thoracic aortic I71.2 History of cochlear implant Z96.21 Iron deficiency E61.1
--- NOTE | 2022-08-21 06:15 | Electrocardiogram Report ---
Test Reason : Blood Pressure : / mmHG Vent. Rate : 086 BPM Atrial Rate : 086 BPM P-R Int : 196 ms QRS Dur : 102 ms QT Int : 384 ms P-R-T Axes : 066 067 019 degrees QTc Int : 459 ms Sinus rhythm with Premature atrial complexes Abnormal ECG When compared with ECG of 17-AUG-2022 11:32, No significant change Confirmed by Marco Antonio Reno ([id number]) on 08/21/2022 6:15:13 AM Referred By: Nova Rousseau Confirmed By:Marco Antonio Reno
[2022-08-21 07:06] LABS: BUN Creatinine Ratio 31.8 (10-20); Calcium 9.1 mg/dl (8.6-10.3); Creatinine Clr Calc Pharmacy 53.8 ml/min; Est GFR (African American) 61.2 ml/min; Est GFR (Non-African American) 52.8 ml/min; Potassium 3.8 mmol/L (3.5-5.1)
[2022-08-21] MEDS: buPROPion XL 150 MG TABCR PO SCH (08:50)
[2022-08-21] MEDS: LORATADINE 10 MG TAB PO SCH (08:50)
[2022-08-21] MEDS: PANTOprazole 40 MG TAB PO SCH (08:51)
[2022-08-21] MEDS: FLUTICASONE PROPIONATE NA SPR 16 GM BTL NAE SCH (08:51)
[2022-08-21] MEDS: ATORVASTATIN 40 MG TAB PO SCH (08:51)
[2022-08-21] MEDS: PARoxetine HCL 20 MG TAB PO SCH (08:51)
[2022-08-21] MEDS: METOPROLOL SUCC 25MG EXT REL TAB PO SCH (10:06)
[2022-08-21] MEDS: ASPIRIN 81 MG ECTAB PO SCH (10:06)
--- NOTE | 2022-08-21 10:44 | Cardiology Progress Note ---
Date of Service August 21, 2022 Assessment & Plan (1) Acute heart failure with preserved ejection fraction: Plan: -compensated at this time. -likely secondary to severe aortic stenosis. -make arrangements for a TAVR as an outpatient. -would substitute Lasix for hydrochlorothiazide, outpatient regimen. (2) Aortic stenosis, severe: Plan: -had 2 syncopal events prior to this hospitalization. -as above, we will make arrangements for a TAVR. (3) MVP (mitral valve prolapse): Plan: -has been stable on surveillance echocardiograms. (4) Dyslipidemia: Plan: -continue Atorvastatin 40 mg daily. (5) Coronary artery calcification: Plan: -presumed CAD. Elevated troponin likely demand ischemia. -continue Atorvastatin 40 mg daily. -continue Aspirin 81 mg daily. -start Toprol XL 25 mg daily. (6) PAF (paroxysmal atrial fibrillation): Plan: -diagnosed in July 2020. -uses Eliquis on a p.r.n. basis by choice. Admission and Anticipated Discharge Date Admission Date: August 17, 2022 Subjective The patient is resting comfortably in bed complaints chest pain or dyspnea. He is anxious for hospital discharge. Physical Exam Physical Exam: In general is well-developed well-nourished white male in no acute distress. HEENT exam notable for bilateral cochlear implants. Neck is supple with mildly delayed and prolonged carotid upstrokes. No obvious transmitted murmur or bruit. No jugular venous distention. Cardiovascular exam reveals a regular rhythm with distant heart sounds. A 2/6 crescendo decrescendo systolic murmur heard loudest at the base. A 2/6 holosystolic systolic murmurs heard at the apex. No S3. Lungs are clear without rales, rhonchi or wheezes. Abdomen is obese without bruits. Extremities reveal intact radial artery pulses bilaterally. There is no peripheral edema. Results & Data Vital Signs (Past 12 Hours) Vital Signs Temp Pulse Pulse Resp BP Pulse Ox O2 Del Method 08/21/22 07:10 36.9 C 120 H 18 116/78 92 Nasal Cannula 08/21/22 03:25 36.7 C 90 20 116/74 95 Nasal Cannula 08/20/22 23:55 95 H 08/20/22 23:44 Nasal Cannula O2 Flow Rate 08/21/22 07:10 2 08/21/22 03:25 2 08/20/22 23:55 08/20/22 23:44 1 Diagnostic Findings site monitor notes sinus rhythm with frequent PACs. PG Care Time/CCT Total # of Minutes Spent Total Time Spent with Patient: Total time spent is greater than 50% in coordination of care (as documented) at patient's floor/unit and/or counseling patient: Coding Level of Care Code 80492 SUB INP/OBS CARE 3/50MIN Diagnoses Acute heart failure with preserved ejection fraction I50.31 Aortic stenosis, severe I35.0 MVP (mitral valve prolapse) I34.1 Dyslipidemia E78.5 Coronary artery calcification I25.10; I25.84 PAF (paroxysmal atrial fibrillation) I48.0
--- NOTE | 2022-08-21 21:16 | Hospitalist Progress Note ---
Date of Service August 21, 2022 Assessment & Plan (1) Acute heart failure with preserved ejection fraction: Plan: acute/chronic diastolic CHF. compensated or even slightly dry. lasix stopped. HOLDING losartan and flomax due to yesterday's low BPs and dizziness. BPs improved and stable creatinine thus started metoprolol xl 25mg daily. would not resume losartan at d/c. appreciate cardiology assistance. I spoke with Dr Paige and at d/c will start lasix 20mg po qam in addition to the metoprolol xl. (2) Aortic stenosis, severe: Plan: noted on echo along with mitral valve disease if patient progresses well through this visit will be [place] [facility] [place] [facility] [place] to assess candidacy for traditional valve replacement vs TAVR +/- intervention on #3 (3) Chest pain: Plan: 10 sec episode yesterday he never told any one until hours later no recurrent symptoms since EKG with ongoing anterior T wave inversions ultimately needs cath in preparation for valve surgery for chest pain could have been from underlying, undiagnosed CAD or from itself - or noncardiac causes if LE continues consider CTA chest (4) Dizziness: Plan: likely due to low BPs CT head without acute pathology HOLD losartan STOPPED IV lasix HOLD flomax BPs today now normal (5) MVP (mitral valve prolapse): Plan: see above (6) BPH with obstruction/lower urinary tract symptoms: Plan: hold flomax temporarily due to low BPs no issues or LUTS however hopefully we can resume the flomax before d/c (7) Atrial fibrillation: Plan: NSR on monitor overnight once again cont tele not on chronic AC due to prior episodes of severe epistaxis?? 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, thoracic aortic: Plan: stable on most recent imaging (12) History of cochlear implant: (13) Iron deficiency: Plan: ferritin 30 s/p 3 doses of Venofer while here (14) MARLON (obstructive sleep apnea): Plan: SEVERE 2011 sleep study reviewed - needed 16cm H20 of CPAP to normalize his nocturnal desaturations he has been noncompliant for a long time with the CPAP the untreated, severe MARLON is likely a big contributor to his chronic fatigue I cannot get a sense that he is committed to using CPAP at home Mentions his nose, paresthesias of face, etc as barriers Nasal CPAP/nasal pillows would likely help will attempt overnight oximetry study to determine O2 requirement, etc Plan PT/OT wilbert completed - ok for home with home PT/OT /daughter updated at bedside home tomorrow? Admission and Anticipated Discharge Date Admission Date: August 17, 2022 Subjective patient sitting in chair continues to require NC O2 even during the day overnight had considerable desats once again he has known sleep apnea, has CPAP at home - doesn't use it blames it on his nasal anatomy and his numbness of his face (from Trigeminal neuralgia) states he continues to be fatigued states he still has a little dyspnea with ambulating with that said he wishes to go home soon /daughter at bedside stable tele overnight w/o dysrhythmia or PAF Review of Systems Review of Systems: gen - fatigue but excellent appetite cv - no orthopnea, no chest pain pulm - no cough; no dyspnea at rest; + LE GI - no pain or vomiting Physical Exam Physical Exam: gen - NAD, pleasant, sitting in chair comfortably -- looks same as yesterday HEENT - cochlear implant b/l; hearing impairment; MMM heart - RRR, s1 s2, 3/6 holosystolic murmur RUSB; s2 is audible lungs - CTA b/l, no rales, no wheeze, normal airation abd - soft NT ND BS+ ext - pulses 2+ b/l, no edema b/l psych - a/o x 3 neuro - strength 5/5 x 4 exts; no facial droop Results & Data Results & Data Vital Signs (Past 12 Hours) Vital Signs Temp Pulse Pulse Resp BP Pulse Ox Pulse Ox 08/21/22 20:55 90 08/21/22 20:50 83 L 08/21/22 19:46 36.3 C L 74 18 121/75 97 08/21/22 19:21 08/21/22 15:52 85 08/21/22 15:51 36.5 C 82 18 105/67 92 08/21/22 12:39 08/21/22 11:20 36.7 C 88 18 92/61 L 96 08/21/22 11:01 91 H O2 Del Method O2 Del Method O2 Flow Rate O2 Flow Rate FiO2 08/21/22 20:55 Nasal Cannula 4 08/21/22 20:50 Room Air 21 08/21/22 19:46 Nasal Cannula 2 08/21/22 19:21 Room Air 08/21/22 15:52 08/21/22 15:51 Room Air 08/21/22 12:39 Nasal Cannula 2 08/21/22 11:20 Nasal Cannula 2 08/21/22 11:01 Laboratory Results Laboratory Results - last 24 hr 08/21/22 05:30 Sodium 137 Potassium 3.8 Chloride 102 Carbon Dioxide 28 Anion Gap 7 BUN 42 H Creatinine 1.32 Est Cr Clr Drug Dosing 53.8 Est GFR ( Amer) 61.2 Est GFR (Non-Af Amer) 52.8 BUN/Creatinine Ratio 31.8 H Glucose 87 Calcium 9.1 PG Care Time/CCT Total # of Minutes Spent Total Time Spent with Patient: Total time spent is greater than 50% in coordination of care (as documented) at patient's floor/unit and/or counseling patient: Coding Level of Care Code 41960 SUB INP/OBS CARE 3/50MIN Diagnoses Acute heart failure with preserved ejection fraction I50.31 Aortic stenosis, severe I35.0 Chest pain R07.9 Dizziness R42 MVP (mitral valve prolapse) I34.1 BPH with obstruction/lower urinary tract symptoms N40.1; N13.8 Atrial fibrillation I48.91 Trigeminal neuralgia G50.0 Hearing loss H91.90 Hypertension I10 Aneurysm, thoracic aortic I71.2 History of cochlear implant Z96.21 Iron deficiency E61.1 MARLON (obstructive sleep apnea) G47.33
[2022-08-22 07:11] LABS: BUN Creatinine Ratio 32.5 (10-20); Calcium 9.3 mg/dl (8.6-10.3); Creatinine Clr Calc Pharmacy 56.4 ml/min; Est GFR (African American) 64.7 ml/min; Est GFR (Non-African American) 55.8 ml/min; Magnesium 1.9 mg/dl (1.7-2.4); Potassium 4.8 mmol/L (3.5-5.1)
[2022-08-22] MEDS: PARoxetine HCL 20 MG TAB PO SCH (08:10)
[2022-08-22] MEDS: FLUTICASONE PROPIONATE NA SPR 16 GM BTL NAE SCH (08:10)
[2022-08-22] MEDS: buPROPion XL 150 MG TABCR PO SCH (08:10)
[2022-08-22] MEDS: PANTOprazole 40 MG TAB PO SCH (08:10)
[2022-08-22] MEDS: ASPIRIN 81 MG ECTAB PO SCH (08:10)
[2022-08-22] MEDS: METOPROLOL SUCC 25MG EXT REL TAB PO SCH (08:10)
[2022-08-22] MEDS: LORATADINE 10 MG TAB PO SCH (08:10)
[2022-08-22] MEDS: ATORVASTATIN 40 MG TAB PO SCH (08:10)
--- NOTE | 2022-08-22 14:51 | Discharge Summary ---
Date of Service August 22, 2022 Admission HPI Per Admitting Provider 76yo male with PMHx significant for aortic stenosis, paroxysmal atrial fibrillation (on eliquis but no longer due to epistaxis, not able to tolerate ASA due to rectal bleeding), HTN, HLD, MARLON (not able to tolerate CPAP due to R facial pain), depression, anxiety, trigeminal neuralgia, hepatic steatosis, lumbar spinal stenosis, hearing loss, BPH w/ LUTS presented with shortness of breath. Had his HCTZ stopped several days ago for reports of near syncope over the past months,, has been having ongoing LE for months but worse recently. Weight up ~2kg from ~2-3 days ago. Remained on amlodipine and losartan but not the HCTZ, previously stopped spironolactone previously to that due to throat irritation. Had a holter monitor w/o abn rhythm per most recent note and worked up by [facility] for possible Watchman device for afib but on hold at this time. Does have some depression anterior leads but no CP reported. Was hypoxic w/ Pox 83% which responded and stable on 2L currently. Given lasix 40mg IV x 1 in ER. CXR w/ cardiomegaly w/ evidence for volume overload. Patient seen in B[facility] -- states breathing stable on 2L presently. Weighs self at home, up about 2-3lb from day prior. Denies heavily salting things but does endorse eating packaged meals/frozen/prepared at times. Reports does have some issues with orthopnea at baseline. No fever/chills at home. +cough but no sputum production. Not on ASA/eliquis for rectal bleeding and epistaxis confirmed (fecal occult negative x 3 earlier this year of note). No lightheadedness/dizziness/syncope at present but does endorse he was having symptoms of this at home with lower blood pressures. He states he has appt w/ Terell September 17 for consideration for watchman "unless this changes things" per patient. Denies any palpitations related to his syncopal appearance. DENIES chest pain at present. Discussed holding amlodipine and using diuretics. Unable to tolated CPAP, however he states he is a mouth breather -- rec'd to f/u discussion about nasal pillows for benefit given worsening aortic stenosis.Discussed likely will need valvular replacement. Ok w/ CPR/intubation if needed, Full Code. COVID pending. Discharge Exam gen - NAD, pleasant, sitting in chair comfortably -- looks same as yesterday HEENT - cochlear implant b/l; hearing impairment; MMM heart - RRR, s1 s2, 3/6 holosystolic murmur RUSB; s2 is audible lungs - CTA b/l, no rales, no wheeze, normal airation abd - soft NT ND BS+ ext - pulses 2+ b/l, no edema b/l psych - a/o x 3 neuro - strength 5/5 x 4 exts; no facial droop Discharge Data Allergies Allergy/AdvReac Type Severity Reaction Status Date / Time baclofen Allergy Unknown Unknown Verified 08/17/22 14:37 cyclobenzaprine Allergy Unknown Unknown Verified 08/17/22 14:37 [From Flexeril] doxazosin Allergy Unknown Unknown Verified 08/17/22 14:37 doxycycline Allergy Unknown Unknown Verified 08/17/22 14:37 duloxetine Allergy Unknown Unknown Verified 08/17/22 14:37 gabapentin Allergy Unknown Unknown Verified 08/17/22 14:37 lisinopril Allergy Unknown Unknown Verified 08/17/22 14:37 naproxen Allergy Unknown Unknown Verified 08/17/22 14:37 nortriptyline [From Pamelor] Allergy Unknown Unknown Verified 08/17/22 14:37 oxcarbazepine Allergy Unknown Unknown Verified 08/17/22 14:37 Penicillins Allergy Unknown Unknown Verified 08/14/22 08:44 Consultations 08/17/22 13:40 ED Decision to Admit Stat 08/17/22 17:40 Consult Cardiology Routine Ordered Studies 08/20/22 19:20 CT head/brain wo con Routine Hospital Course (1) Acute heart failure with preserved ejection fraction: acute/chronic diastolic CHF. compensated or even slightly dry. lasix stopped. HOLDING losartan and flomax due to yesterday's low BPs and dizziness. BPs improved and stable creatinine thus started metoprolol xl 25mg daily. would not resume losartan at d/c. appreciate cardiology assistance. I spoke with Dr Paige and at d/c will start lasix 20mg po qam in addition to the metoprolol xl. (2) Aortic stenosis, severe: noted on echo along with mitral valve disease if patient progresses well through this visit will be referred to valve clinic at [facility] or [facility] post-d/c to assess candidacy for traditional valve replacement vs TAVR +/- intervention on #3 (3) Chest pain: 10 sec episode yesterday he never told any one until hours later no recurrent symptoms since EKG with ongoing anterior T wave inversions ultimately needs cath in preparation for valve surgery for chest pain could have been from underlying, undiagnosed CAD or from itself - or noncardiac causes if LE continues consider CTA chest (4) Dizziness: likely due to low BPs CT head without acute pathology HOLD losartan STOPPED IV lasix HOLD flomax BPs today now normal (5) MVP (mitral valve prolapse): see above (6) BPH with obstruction/lower urinary tract symptoms: hold flomax temporarily due to low BPs no issues or LUTS however hopefully we can resume the flomax before d/c (7) Atrial fibrillation: NSR on monitor overnight once again cont tele not on chronic AC due to prior episodes of severe epistaxis?? (8) Trigeminal neuralgia: not on meds for such right side of face he has residual paresthesias but they are not painful he took gabapentin for his issue years ago but had sedation from such (9) Hearing loss: has cochlear implants (10) Hypertension: controlled had low BPs yesterday - now resolved moving forward - metoprolol xl 25mg daily hopefully can resume flomax before d/c d/c losartan indefinitely (11) Aneurysm, thoracic aortic: stable on most recent imaging (12) History of cochlear implant: (13) Iron deficiency: ferritin 30 s/p 3 doses of Venofer while here (14) MARLON (obstructive sleep apnea): SEVERE 2010 sleep study reviewed - needed 16cm H20 of CPAP to normalize his nocturnal desaturations he has been noncompliant for a long time with the CPAP the untreated, severe MARLON is likely a big contributor to his chronic fatigue I cannot get a sense that he is committed to using CPAP at home Mentions his nose, paresthesias of face, etc as barriers Nasal CPAP/nasal pillows would likely help will attempt overnight oximetry study to determine O2 requirement, etc Plan PT/OT wilbert completed - ok for home with home PT/OT /daughter updated at bedside home tomorrow? Home Health Attestation I certify that this patient is under my care and that I, or a physicians golf course assistant working with me, had a face to-face encounter that meets the home health [id number] encounter requirements with this patient. The encounter with the patient was in whole, or in part, for the following medical condition, which is the primary reason for home health care (list medical condition): chf I certify that, based on my findings, the following services are medically necessary home health services: My clinical findings support the need for the above services because: OT Assess ADL Status and Restore Function w ADLs PT Assessment for Endurance / Balance / Strength PT Eval for Safety and Mobility PT Eval for Safety, Gait Training, Assistive Devices PT Gait and Balance Training, Strengthening and Safety Skilled Nsg Assessment Further, I certify that my clinical findings support that this patient is h omebound (i.e. absences from home require considerable and taxing effort and are for medical reasons or congregation services or infrequently or of short duration when for other reasons) because: Transportation Assistance/Unable to Leave Home Unassisted Certification for Home Health Services: Based on the above findings, I certify that this patient is confined to the home and needs intermittent alf care, physical therapy and/or speech therapy or continues to need occupational therapy. The patient is under my care, and I have initiated the establishment of the plan of care. This patient will be followed by a physician who will periodically review the plan of care. Discharge Plan Discharge Items Patient Disposition: Home - Home Health Services Reason For Visit: Shortness of breath Discharge Diagnosis: 1. acute on chronic congestive heart failure 2. severe aortic stenosis 3. mitral valve prolapse 4. severe sleep apnea 5. iron deficiency 6. prior history of atrial fibrillation 7. shortness of breath - multiple causes 8. pulmonary hypertension Activity: As commented below Activity Comment: as tolerated Non-emergency contact: Primary Care Provider, Four Slide Machine Setter and Mercerizing Range Feeder Call non-emergency contact if: you have any medication questions and your symptoms worsen Follow-up/Referrals: Toñito Paige MD [Physician] - ([address] Paige or one of his partners for recheck of congestive heart failure ) Yimi Vance MD [Physician] - (as soon as possible for sleep apnea follow-up ) Nova Rousseau DO [Primary Care Provider] - (within 1 week) Diet: Heart Healthy Fluids: 1800ml (7 cups) Addtl Attending Provider Instructions: Mr Snyder, You were treated for congestive heart failure while at [facility]. You received IV diuretics (water pills) to remove the excess water build-up. The fluid retention was mainly in your lungs and your abdomen. Your weight on day of discharge is 198 pounds. Please know that your weight on your scale at home may be different from the weights we had here. In addition to removing fluid we made several changes in your heart medication and blood pressure medication. Dr Gerald Paige from cardiology was involved in your cardiac care while here. We saw during your stay that your oxygen levels at night-time were VERY LOW without CPAP or supplemental oxygen. We performed a formal oximetry sleep test on 08/21/22 and this showed that you need oxygen at night-time when you sleep (and during daytime naps). You ultimately will need a repeat sleep study with Dr Vance to determine your final needs with respect to the CPAP machine, etc. Your chronic fatigue is likely due to severe, untreated sleep apnea and your heart conditions. Of note - you did very well with use of "nasal pillows" when you used the CPAP machine here. Dr Paige plans to refer you to a valve clinic at one of the larger hospitals ([facility], etc) in the near-future to see if you are a candidate for valve replacement. On your heart ultrasound in June it showed that you likely have a condition called pulmonary hypertension (see handout). This may be contributing to your shortness of breath when you walk. Finally, for your low iron levels, we gave you 3 IV infusions of iron during your stay. Recommendations - 1. START the following medications on the AM of 08/23/22 -- * metoprolol succinate 12.5mg (1/2 tablet) each morning * furosemide water pill - 20mg each morning 2. STOP the following medications - * amlodipine * hydrochlorothiazide * losartan * iron supplement 3. BLEND 6 liters of oxygen into your CPAP machine at home. Use your CPAP faithfully if possible every time you sleep or nap. 4. WEIGH yourself every morning on the same scale after you empty your bladder. Write these weights down in a notebook so you can track them. If you gain more than 2-3 pounds in 1-2 days just assume this is fluid weight from congestive heart failure. If you gain weight please contact the [facility] cardiology office right away. Do not delay. 5. If you continue to have "dizziness" / lightheadedness with standing or walking please DISCONTINUE your tamsulosin prostate medication. Follow-up - see separate section Return to [facility] if - * you have fevers over 100 degrees * you have worsening shortness of breath despite taking all of your usual heart medications * you have chest pains * any other concerns It was our pleasure to care for you! Dr Brett Laynetl Content Production Specialist Provider Instructions: Congestive Heart Failure Instructions: Call 911 and go to the Emergency Room if: * You have tightness or pain in your chest that does not go away with rest or Nitroglycerin * You are very short of breath even with rest Call your doctor if any of the following symptoms or problems start or get worse: * Shortness of breath or difficulty breathing * Wake up at night short of breath * Chest pain * Cough * Swelling of your hands, feet, or legs * More fatigued or tired with your normal activity * Palpitations - sudden fast heart beats WEIGHT * Weigh yourself every morning after using the bathroom. * Use the same scale. * Wear the same amount of clothing. * Write your weight down on your chart. * Call your heart doctor if you gain more than 2-3 pounds in 1-2 days. This is usually the first sign of fluid retention. MEDICATIONS * Use this discharge instruction sheet for instructions. * Take your medications at the time your doctor ordered. * Do not skip a dose of your medicines. * If you miss a dose of medicine, take as soon as possible, but DO NOT DOUBLE A DOSE. * Read your medicine information when you get home. * Know all of the side effects of your medicine. * Call your doctor's office if you have any side effects. * Be sure all of your doctors know what medicine and herbs you take (including cold, flu, and herbal medicine). * Pain Medicine: If you do not get relief from your pain, please call your doctor for help. Take the following with you to your follow-up doctor appointments: * Weight Chart * Medication List * List of questions Do not drink excessive alcohol, beer or wine. Pending Studies at Discharge: No Stand-Alone Forms: [facility], Smoking Cessation Medications and DC Order Prescriptions: New (DME) Oxygen Home Liters Per Minute See Rx Instructions .ROUTE .MEDSUPPLY Qty: 1 0RF Rx Instructions: 6 liters oxygen blended into CPAP - use with sleep. metoprolol succinate 25 mg Tablet Extended Release 24 Hr 12.5 mg PO QAM Qty: 30 2RF Rx Instructions: for your heart furosemide [Lasix] 20 mg tablet 20 mg PO QAM Qty: 30 2RF Rx Instructions: to prevent water retention from congestive heart. Continued tamsulosin 0.4 mg capsule 0.4 mg PO HS Qty: 90 1RF potassium chloride 20 mEq tablet extended release 20 meq PO QAM Qty: 90 1RF atorvastatin 40 mg tablet 40 mg PO QAM Qty: 90 1RF bupropion HCl [Wellbutrin XL] 150 mg tablet extended release 24 hr 150 mg PO QAM Qty: 90 3RF paroxetine HCl 40 mg tablet 40 mg PO QAM Qty: 90 1RF pantoprazole 40 mg tablet,delayed release (DR/EC) 40 mg PO DAILY Qty: 90 2RF mupirocin 2 % ointment 1 applic topical BID 7 Days Qty: 22 0RF loratadine [Claritin] 10 mg tablet 10 mg PO DAILY Qty: 30 1RF aspirin 81 mg tablet,delayed release (DR/EC) 81 mg PO DAILY Qty: 90 3RF acetaminophen 500 mg tablet 1,000 mg PO TID PRN (Reason: fever or pain) Qty: 90 5RF fluticasone propionate [Flonase Allergy Relief] 50 mcg/actuation spray,suspension 2 spray intranasal DAILY Qty: 16 1RF Rx Instructions: administer into each nostril Discontinued hydrochlorothiazide 25 mg tablet 25 mg PO QAM Qty: 90 1RF Hold Instructions: hypotension losartan 100 mg tablet 100 mg PO QAM Qty: 90 1RF amlodipine 5 mg tablet 5 mg PO QAM Qty: 90 3RF ferrous sulfate 325 mg (65 mg iron) tablet 325 mg PO DAILY Qty: 30 0RF Discharge Orders: Discharge Order (Routine); Ordered 08/22/22 Ordered By: Wilver Barriga/Other Patient Handouts: Understanding Heart Valves, Aortic Stenosis, Pulmonary Hypertension, ED Mitral Valve Prolapse Admission Data Admit Date/Time: 08/17/22 14:18 Attending Provider: Wilver West Admit Provider: Wilvre Infante Primary Care Provider: Nova Rousseau Other Providers: Wilver Infante ; Toñito Paige ; [facility] Coding Diagnoses Acute heart failure with preserved ejection fraction I50.31 Aortic stenosis, severe I35.0 Chest pain R07.9 Dizziness R42 MVP (mitral valve prolapse) I34.1 BPH with obstruction/lower urinary tract symptoms N40.1; N13.8 Atrial fibrillation I48.91 Trigeminal neuralgia G50.0 Hearing loss H91.90 Hypertension I10 Aneurysm, thoracic aortic I71.2 History of cochlear implant Z96.21 Iron deficiency E61.1 MARLON (obstructive sleep apnea) G47.33
== END 2022-08-22 17:03 | disposition home health service (06) | DRG 306 ==
LOC: ED 11:27 → 2S 14:18 → SUATTDRO 14:18 → 2S 17:17

== ENCOUNTER 2022-08-31 09:46 | Inpatient (IN) ==
--- NOTE | 2022-08-31 10:35 | History & Physical Bridge Note ---
Date of Service August 31, 2022 History & Physical Bridge Note I have examined the patient, reviewed the History & Physical and in the interval since the performance of the History & Physical I have noted the following changes of clinical significance: Has chronic SOB. O2 sat on RA reported as 82%. Will pursue right heart heart catheterization as well to evaluate filling pressure. Has hx of HFpEF. Discussed with primary freight elevator operator, Dr. Paige.
--- NOTE | 2022-08-31 10:36 | Pre Anesthesia Assessment ---
Date of Service August 31, 2022 Pre Sedation Assessment Vital Signs Pulse Resp BP Pulse Ox O2 Del Method 08/31/22 10:03 93 H 16 138/79 82 L Room Air Cardiovascular + regular rate + murmur Respiratory normal respiratory effort, lungs clear to auscultation Pre-Sedation Airway Assessment Smoking Status: Never smoker Mallampati Class: II ASA: ASA3 NPO Status Date of Last Intake of Fluids: 08/31/22 Time of Last Intake of Fluids: 07:00 Last Oral Intake of Fluids Comment: sips with meds Date of Last Intake of Solid Food: 08/31/22 Time of Last Intake of Solid Foods: 20:00 Procedure Planning Contraindications for Sedation: none Current Medications Reviewed: Yes Notes The planned sedation has been discussed with the patient. Informed Consent was obtained. I have identified the patient, determined the appropriateness of sedation and have assessed the patient immediately prior to the procedure. All medicine(s) and interventions are by my order.
[2022-08-31] MEDS ORDERED: niCARdipine HCL INJ 2.5 MG/ML 10 ML AMP ONE (10:55)
[2022-08-31] MEDS ORDERED: MIDAZOLAM HCL 1 MG/ML 2ML VIAL ONE (10:55)
[2022-08-31] MEDS ORDERED: HEPARIN (PORCINE) 1000 UNIT/ML 10 ML (CATH LAB USE ONLY) ONE (10:55)
[2022-08-31] MEDS ORDERED: fentaNYL citrate PF 100 MCG/2 ML VIAL ONE (10:56)
[2022-08-31] MEDS ORDERED: NITROGLYCERIN/D5W 100MCG/ML 20ML SYR ONE (10:57)
[2022-08-31 12:03] LABS: iSTAT Arterial Blood Gas HCO3 24 meg/L (19-24); iSTAT Arterial Blood Gas pCO2 39 mmHg (35-46); iSTAT Arterial Blood Gas pH 7.41 (7.35-7.45); iSTAT Arterial Blood Gas pO2 < 32 mmHg (80-95); iSTAT Carbon Dioxide 25 mmol/L (24-31)
[2022-08-31 12:04] LABS: iSTAT Arterial Blood Gas HCO3 21 meg/L (19-24); iSTAT Arterial Blood Gas pCO2 30 mmHg (35-46); iSTAT Arterial Blood Gas pH 7.45 (7.35-7.45); iSTAT Arterial Blood Gas pO2 60 mmHg (80-95); iSTAT Carbon Dioxide 22 mmol/L (24-31)
[2022-08-31 12:04] LABS: iSTAT Arterial Blood Gas HCO3 25 meg/L (19-24); iSTAT Arterial Blood Gas pCO2 41 mmHg (35-46); iSTAT Arterial Blood Gas pH 7.39 (7.35-7.45); iSTAT Arterial Blood Gas pO2 < 32 mmHg (80-95); iSTAT Carbon Dioxide 26 mmol/L (24-31)
--- NOTE | 2022-08-31 12:27 | Cardiac Catheterization ---
[facility] Data: Packing Supervisor Cardiac Status Clinical evaluation leading to the procedure CAD Presenation: No Sxs, No angina Anginal Classification: No Symptoms Heart Failure: NYHA Class: CCS IV Cardiogenic Shock within 24 Hours: No Cardiac Arrest within 24 Hours: No Imaging Studies Past 6 Months: Yes Stress Studies Past 6 Months: No Coronary Anatomy Dominant: Left Diagnostic Physicians Name: Marco Antonio Reno MD Status: Elective Closure Device Percutaneous Entry Location: Radial Closure Device: Radial Band Recommendations: Management Recommendatons Cardiac Cath Procedure Full Procedure Date August 31, 2022 Pre-Procedure Diagnosis Pre-Procedure Diagnosis: Valvular Disease and CHF AUC Score AUC Score: 8 Post-Procedure Diagnosis Post-Procedure Diagnosis: Severe CAD and Elevated Intracardiac Pressures Procedure(s) Performed Procedure(s) Performed: Coronary Angiography, Right Heart Cath and Procedure (Venography) Admissions Advisor Marco Antonio Reno MD Oncology Nurse(s) Segundo Kramer Estimated Blood Loss Estimated Blood Loss: < 30 ml Medication(s) Medication(s): Fentanyl, Heparin, Lidocaine 1%, Nicardipine and Versed Summary of Findings Procedures: 1. Coronary angiography 2. Right heart catheterization 3. Right upper extremity venography 4. Moderate sedation Indication: Mr. Snyder is a pleasant 76-year-old gentleman with history significant for severe aortic stenosis, paroxysmal atrial fibrillation, heart failure with preserved EF, mitral valve prolapse with nonsevere regurgitation, hypertension, dyslipidemia, and sleep apnea. He was referred by Dr. Paige, his primary guest experience specialist, for coronary angiography in anticipation of aortic valve replacement. When he presented to the Packing Supervisor holding area as an outpatient, he was found to be hypoxic with an oxygen saturation of 82% on room air. He denies chest pain and states that he has chronic shortness of breath. Decision was made to perform right heart catheterization as well. Coronary angiography: 1. Left main: Large caliber vessel. No significant CAD. 2. Left anterior descending: Large caliber vessel that wraps around the apex. Ostial/proximal LAD 30 to 40%. Otherwise, luminal irregularities throughout the proximal and mid LAD with focal mid LAD 40 to 50%. Large high D1 with proximal 70 to 80%. Medium caliber D2. CLINTON-3 flow throughout the LAD system. 3 circumflex: Very large caliber and dominant vessel. Proximal circumflex 70 to 80%. Mid circumflex 50%. OM1, PL branches and PDA without significant CAD. CLINTON-3 flow throughout the circumflex system. 4. Right coronary artery: RCA is small and nondominant. Luminal irregularities throughout with mid RCA 40%. Right heart catheterization: 1. Initially, unable to pass the right heart catheter beyond the proximal upper extremity. Venography was performed and demonstrated tortuosity. Whisper wire was able to be advanced. Over the wire, 6 Chadian right heart catheterization was able to be advanced. 2. Pulmonary capillary wedge pressure: V wave 66 with a mean of 48 mmHg. 3. PA pressure: 87/39 with a mean of 55 mmHg. 4. RV pressure: 84/12 with EDP 21 mmHg. 5. Right atrial pressure: A-wave 16; V wave 19; mean 14 mmHg. 6. Cardiac output via thermodilution was 3.87 L/min, with a cardiac index of 1.92 L/min/m. 7. PVR 1.8 Wood units. Catheters: 1. 6 Chadian JL 3.5 diagnostic catheter used for selective angiography of the left main. 2. 6 Chadian JR4 diagnostic catheter used for selective angiography of the RCA. 3. 6 Chadian right heart catheter used for right heart catheterization, performed in the right upper extremity. Moderate sedation: 1. Sedation start time: 11:09 AM 2. Sedation end time: 11:51 AM Impression: 1. Severe CAD involving proximal Dominant circumflex, and proximal large caliber D1. 2. Otherwise nonobstructive CAD. 3. Severe pulmonary hypertension (postcapillary) due to left heart failure. 4. Severely elevated pulmonary capillary wedge pressure. 5. Previously documented severe aortic stenosis. Plan: 1. Diurese and optimize volume status. 2. Risk factor modification for CAD. 3. Anticipate referral to CT surgery capable center to consider aortic valve replacement and revascularization. 4. Continue to follow with primary guest experience specialist, Dr. Paige. 5. Recommend hospitalization to optimize volume status as he presented with hypoxia. Hemodynamics Rest Ao:: 120/72 Final Ao: 120/70 LV: n/a Recommendations Recommendations: Management Recommendatons Specimens Specimens: None Radiation Exposure (mGy) 850 mGy. Fluoro time 8.4 min. Contrast (mls) 100 ml Procedural Complication(s) None Disposition Packing Supervisor Holding/Recovery I attest to the content of the Intraoperative Record and any orders documented therein. Any exceptions are noted below. [place] Card Cath Procedure Codes Cardiac Catheterization Procedure 1: Cardiovascular Cath Procedures: 84029 Coronaries and RHC Moderate Sedation Procedure 1: Sedation/Anesthesia: 71940 Mod Sedation by the same physician;Init15 Min Child Age 5 & Up Procedure 2: Sedation/Anesthesia: 47442 Mod Sedation by the same physician; Ea [id number] Minutes Procedure 3: Sedation/Anesthesia: 39276 Mod Sedation by the same physician; Ea [id number] Minutes PG Care Time/CCT Total # of Minutes Spent Total Time Spent with Patient: Total time spent is greater than 50% in coordination of care (as documented) at patient's floor/unit and/or counseling patient:
[2022-08-31] MEDS ORDERED: FUROSEMIDE 40 MG/4 ML VIAL IV ONE ×2 (12:55→13:03)
[2022-08-31] MEDS ORDERED: ACETAMINOPHEN 325 MG TAB PO PRN (12:55)
--- NOTE | 2022-08-31 12:58 | Post Anesthesia Assessment ---
Date of Service August 31, 2022 Post Sedation Assessment Vital Signs Pulse Resp BP Pulse Ox O2 Del Method O2 Flow Rate 08/31/22 12:45 91 H 16 120/89 96 Nasal Cannula 4 08/31/22 12:30 77 16 116/74 96 Nasal Cannula 4 08/31/22 12:16 83 16 125/84 96 Nasal Cannula 4 08/31/22 12:00 72 16 115/72 90 Nasal Cannula 3 08/31/22 10:30 87 16 96 Nasal Cannula 3 08/31/22 10:03 93 H 16 138/79 82 L Room Air Recovery Score Activity: Moves 4 extremities Respiration: Deep Breath/Cough Circulation: +/-20% PreAnes Value Consciousness: Fully Awake Oxygen Saturation: O2 needed for >90% Post Anesthesia Score: 10 Discharge Sedation Level of Care: Fast Track Phase II Post Sedation Plan On clinical assessment, the patient appears to have tolerated the sedation without complications. Patient is recovering as anticipated. Patient will continue to be monitored by nursing and may be discharged when sedation discharge criteria are met per below protocol. Upon Completions of procedure up to 15 minutes continue every 5 minute vital signs and the P.A.R. score; then discharge to a Phase I or Fast Track to Phase II per the following guidelines: * Discharge Patient to appropriate Phase II area if PAR is 8 or greater or return to pre- procedure baseline. The post - procedure orders will be as directed. * If PAR score is less than 8 or not return to pre-procedure baseline then patient will follow Phase I monitoring till PAR is reached for Phase II. The Phase I may be done in procedure room or may call to secure a Phase I area. * If naloxone or flumazenil are used for reversal, hold in Phase I for continued monitoring from when last reversal dose was given for a minimum of 60 minutes or longer pending the nurse and/or physician discretion of patient condition before discharge to Phase II. Please call the Sedation Physician to re-evaluate and complete post-note for discharge to Phase II area. Do NOT discharge from procedure sedation or Phase 1 until post- sedation evaluation note is complete by procedure /sedation MD Sedation Discharge Instructions to be given to the patient at discharge to home.
--- NOTE | 2022-08-31 13:17 | Cardiology Consultation ---
Date of Consultation August 31, 2022 Assessment & Plan (1) Acute on chronic heart failure with preserved ejection fraction (HFpEF): (2) CAD (coronary artery disease): (3) Pulmonary hypertension: (4) MVP (mitral valve prolapse): (5) Mitral regurgitation: (6) PAF (paroxysmal atrial fibrillation): (7) Aortic stenosis, severe: (8) Dyslipidemia: (9) Hypertension: (10) Hypoxia: Plan ASSESSMENT/PLAN: 1. Acute on chronic heart failure with preserved EF: Significantly hypervolemic with severely elevated filling pressures. 40 mg of IV Lasix now but will likely require 40 mg IV twice daily or more. Try to obtain 1 to 2 L net negative fluid balance daily. Monitor renal function and electrolytes carefully. Low-sodium diet, less than 2000 mg daily. Daily weights and strict I's and O's while hospitalized. If no contraindication, consider SGLT2 inhibitor. 2. Aortic stenosis: Significant aortic stenosis. Today underwent cardiac catheterization in anticipation of aortic valve replacement. Optimize heart failure status. Dr. Paige plans on referring for aortic valve replacement. 3. CAD: Severe CAD involving dominant circumflex and D1. Continue aspirin 81 mg daily. Continue high intensity statin therapy. Continue beta-sid. No angina although describes atypical chest pain that may or may not be related to ischemic heart disease and aortic stenosis. Revascularization options to be determined when evaluated for aortic valve replacement. 4. Mitral valve prolapse with regurgitation: In anticipation of upcoming surgery, consider transesophageal echo when improved from a heart failure standpoint. 5. Pulm hypertension: Due to left heart failure. Plan as above. 6. Hypertension: Blood pressure well controlled. Plan as above. 7. Dyslipidemia: Goal LDL < 70. Recommend increasing atorvastatin to 80 mg daily. High intensity statin therapy. 8. Paroxysmal atrial fibrillation: In sinus rhythm currently. Not on anticoagulation therapy due to recurrent epistaxis and history of GI bleed. Has been referred to [facility] for Watchman and has been on a trial of daily antiplatelet therapy as per EP recommendations there. Continue beta- sid. 9. Hypoxia: Requiring supplemental oxygen to maintain adequate oxygen saturation. This should improve with diuresis. 10. Disposition: Cardiology will continue to follow. Recommend hospitalization and discussed with Dr. Infante of the hospitalist service who is agreeable to admit for heart failure management. Dr. Paige, his primary rotor balancer, was notified of cath findings and in agreement for hospitalization. He will resume his cardiology care tomorrow. Highly complex medical issues. History of Present Illness Reason for Consultation: CHF Requesting Physician: Dr. Infante Attending Physician: Marco Antonio Reno MD History of Present Illness Mr. Snyder is a very pleasant 76-year-old gentleman with a history significant for severe aortic stenosis, mitral valve prolapse with regurgitation, heart failure with preserved EF, hypertension, dyslipidemia, and sleep apnea. His primary rotor balancer is Dr. Paige. He presented to [facility] today as an outpatient for elective cardiac catheterization in anticipation of aortic valve replacement. He has significant dyspnea with exertion and also reports orthopnea. He has been experiencing a stabbing chest discomfort lasting only a few seconds, with exertion. When he arrived to the [facility] holding area, he was noted to have an oxygen saturation of 82% on room air. He was placed on supplemental oxygen to correct his oxygen saturation and while on 3 L, his oxygen saturation was 90 to 92% while at the bedside. He was noted to have JVD during our discussion and right heart catheterization was added to today's procedure. He had severely elevated pulmonary capillary wedge pressure and severe pulm hypertension, felt to be postcapillary due to left-sided heart failure. It was recommended that he be hospitalized to optimize his volume status. Coronary angiography also demonstrated severe CAD involving dominant circumflex and large caliber D1. He tolerated the procedure well without known complication. He is currently chest pain-free and denies shortness of breath while on 4 L of supplemental oxygen via nasal cannula with an oxygen saturation of 98%. He denies syncope, near syncope, palpitations, edema, melena, hematochezia, or hematuria. He weighs himself daily and states that his weight has been stable. He maintains a low-sodium diet. He was last hospitalized on 08/17/2022 and discharged on 08/22/2022. He states that he was short of breath on discharge and has remained similar. He apparently had 2 syncopal episodes prior to that hospital stay, but none since. In regards to paroxysmal atrial fibrillation, he is no longer on anticoagulation therapy due to epistaxis. He also reports a history of GI bleeding in the past. He was referred by his primary rotor balancer to [facility] to discuss Watchman device. He was placed on aspirin therapy 81 mg daily to monitor for bleeding in anticipation of possible Watchman implantation in the future. Review of systems: As above. Review of systems otherwise negative/unremarkable. Family history: Noncontributory. Social history: Denies tobacco, alcohol, or drug abuse. Lives at home with his and daughter. Allergies Allergy/AdvReac Type Severity Reaction Status Date / Time baclofen Allergy Unknown Unknown Verified 08/26/22 15:07 cyclobenzaprine Allergy Unknown Unknown Verified 08/26/22 15:07 [From Flexeril] doxazosin Allergy Unknown Unknown Verified 08/26/22 15:07 doxycycline Allergy Unknown Unknown Verified 08/26/22 15:07 duloxetine Allergy Unknown Unknown Verified 08/26/22 15:07 gabapentin Allergy Unknown Unknown Verified 08/26/22 15:07 lisinopril Allergy Unknown Unknown Verified 08/26/22 15:07 naproxen Allergy Unknown Unknown Verified 08/26/22 15:07 nortriptyline [From Pamelor] Allergy Unknown Unknown Verified 08/26/22 15:07 oxcarbazepine Allergy Unknown Unknown Verified 08/26/22 15:07 Penicillins Allergy Unknown Unknown Verified 08/26/22 15:07 Home Medications Medication Instructions Recorded Confirmed Type acetaminophen 500 mg tablet 1,000 mg PO TID PRN fever or pain 11/18/18 08/31/22 Rx #90 tabs mupirocin 2 % topical ointment 1 applic topical BID 7 days #22 04/24/21 08/31/22 Rx grams loratadine 10 mg tablet (Claritin) 10 mg PO DAILY #30 tabs 09/16/21 08/31/22 Rx potassium chloride 20 mEq 20 meq PO QAM #90 tabs 01/27/22 08/31/22 Rx tablet,extended release tamsulosin 0.4 mg capsule 0.4 mg PO HS #90 caps 01/27/22 08/31/22 Rx fluticasone propionate 50 2 spray intranasal DAILY #16 grams 03/24/22 08/31/22 Rx mcg/actuation nasal spray,suspension (Flonase Allergy Relief) atorvastatin 40 mg tablet 40 mg PO QAM #90 tabs 04/22/22 08/31/22 Rx bupropion HCl 150 mg 24 hr tablet, 150 mg PO QAM #90 tabs 05/26/22 08/31/22 Rx extended release (Wellbutrin XL) aspirin 81 mg tablet,delayed 81 mg PO DAILY #90 tabs 06/09/22 08/31/22 Rx release paroxetine HCl 40 mg tablet 40 mg PO QAM #90 tabs 06/18/22 08/31/22 Rx pantoprazole 40 mg tablet,delayed 40 mg PO DAILY #90 tabs 07/27/22 08/31/22 Rx release Oxygen Home #1 ea 08/22/22 08/31/22 Rx furosemide 20 mg tablet (Lasix) 20 mg PO QAM #30 tabs 08/22/22 08/31/22 Rx metoprolol succinate 25 mg 12.5 mg PO QAM #30 tabs 08/22/22 08/31/22 Rx tablet,extended release 24 hr Patient History Medical History (Updated 08/31/22 @ 13:29 by Marco Antonio Reno MD) Aneurysm, thoracic aortic pt unaware of size, follows with Dr. Paige Aortic atherosclerosis Aortic stenosis, moderate Aortic stenosis, severe Atrial fibrillation BPH with obstruction/lower urinary tract symptoms CAD (coronary artery disease) Cervical disc disease Chronic sinusitis Cognitive disorder Coronary artery calcification Depression with anxiety Dyslipidemia Encounter for pre-operative examination Glaucoma Hearing loss Hepatic steatosis History of central retinal vein occlusion Hypertension Lower GI bleed no current issues Lower urinary tract symptoms (LUTS) Lumbar spinal stenosis Mitral regurgitation Osteoarthritis PAC (premature atrial contraction) PAF (paroxysmal atrial fibrillation) Sleep apnea Stomach ulcer Trigeminal neuralgia received radiation for this, having numbess/tingling to right side of face since this Vitamin D deficiency Surgical History H/O cataract extraction (2013) H/O colonoscopy History of cochlear implant (01/12/12) BILATERAL History of pilonidal cyst removed History of umbilical hernia repair S/P foot surgery, right (12/2010) removal of heel spur S/P laser trabeculoplasty of eye (10/2014) b/l S/P nasal endoscopy with nasal polypectomy (2011) S/P rotator cuff repair b/l shoulders Family History Mother No pertinent family history Other Hypertension Denies family history of Ovarian cancer Prostate cancer Diabetes Myocardial infarction Breast cancer Colorectal cancer Cancer Social History Smoking Status: Never smoker Second Hand Exposure: No; Do You Dip or Chew Tobacco: No; Tobacco Cessation Education Requested by Patient: No Hx Alcohol Use: No Hx Substance Use: No Preferred Language: Yoruba Communication Ability: Effective Visual Impairment: No Limitations Hearing Ability: Cochlear Implant Mold Burner Required: No Beliefs That Will Affect Care: None marital status: Current Living Situation: Spouse and Family current occupational status: retired How many Children do You have: 1 Other Information That Helps Us Care for You: No Feels Safe at Home: Yes Safety Concerns: Feels Safe At This Time Childhood Exposure to Second-Hand Smoke: Yes Diet Comment: regular caffeine: Yes (Soda 6 per day. Coffee 1 cup per day.) during the past year weight has: remained stable Dental Care, Regularly: No Physical Activity Frequency: Daily Seatbelt Use: sometimes Sunscreen Use: No Assistive Devices: BiPap, Cane and Hearing Aid - Bilateral Physical Exam Physical Exam: Gen.: No acute distress. Alert. HEENT: Anicteric sclera. Neck: Elevated JVD and hepatojugular reflux. Cardiac: No ventricular heave. Regular. Normal S1-S2. 2/6 late peaking systolic ejection murmur heard best at right upper sternal border. No rubs or gallops. Pulmonary: Clear to auscultation bilaterally without wheezes, rales, or rhonchi. Abdomen: Soft, nontender, nondistended, with normoactive bowel sounds. No bruits noted. Extremities: 2+ radial pulses bilaterally. Trace bilateral lower extremity edema. No cyanosis. Psychiatric: Affect appears appropriate. Results & Data Vital Signs (Past 12 Hours) Vital Signs Pulse Resp BP Pulse Ox O2 Del Method O2 Flow Rate 08/31/22 13:00 81 16 124/81 98 Nasal Cannula 4 08/31/22 12:45 91 H 16 120/89 96 Nasal Cannula 4 08/31/22 12:30 77 16 116/74 96 Nasal Cannula 4 08/31/22 12:16 83 16 125/84 96 Nasal Cannula 4 08/31/22 12:00 72 16 115/72 90 Nasal Cannula 3 08/31/22 10:30 87 16 96 Nasal Cannula 3 08/31/22 10:03 93 H 16 138/79 82 L Room Air Laboratory Results Laboratory Results - last 48 hr 08/31/22 08/31/22 08/31/22 11:33 11:39 11:42 POC pH 7.45 7.41 7.39 POC pCO2 30 L 39 41 POC pO2 60 L < 32 L < 32 L POC HCO3 21 24 25 H POC Total CO2 22 L 25 26 POC Base Excess -3.0 -1.0 0.0 POC ABG O2 Sat 92.0 61.0 L 57.0 L Diagnostic Findings Cardiac cath findings 08/31/2022: Coronary angiography: 1. Left main: Large caliber vessel. No significant CAD. 2. Left anterior descending: Large caliber vessel that wraps around the apex. Ostial/proximal LAD 30 to 40%. Otherwise, luminal irregularities throughout the proximal and mid LAD with focal mid LAD 40 to 50%. Large high D1 with proximal 70 to 80%. Medium caliber D2. [place]-3 flow throughout the LAD system. 3 circumflex: Very large caliber and dominant vessel. Proximal circumflex 70 to 80%. Mid circumflex 50%. OM1, PL branches and PDA without significant CAD. [place]-3 flow throughout the circumflex system. 4. Right coronary artery: RCA is small and nondominant. Luminal irregularities throughout with mid RCA 40%. Right heart catheterization: 1. Initially, unable to pass the right heart catheter beyond the proximal upper extremity. Venography was performed and demonstrated tortuosity. Whisper wire was able to be advanced. Over the wire, 6 [place] right heart catheterization was able to be advanced. 2. Pulmonary capillary wedge pressure: V wave 66 with a mean of 48 mmHg. 3. PA pressure: 87/39 with a mean of 55 mmHg. 4. RV pressure: 84/12 with EDP 21 mmHg. 5. Right atrial pressure: A-wave 16; V wave 19; mean 14 mmHg. 6. Cardiac output via thermodilution was 3.87 L/min, with a cardiac index of 1.92 L/min/m. 7. PVR 1.8 Wood units. Echo 07/03/2022 report: Normal LV systolic function. EF 60 to 65%. Aortic stenosis (PV 3.9 m/s; MG 25; AUDIE 1 cm2; dimensionless index 0.22). Mitral valve prolapse reported but difficult to quantify MR due to eccentric jet. Medications Administered Current Inpatient Medications Acetaminophen (Acetaminophen 325 Mg Tab) 650 mg PO Q4H PRN PRN Reason: MILD Pain (1,2,3) Stop: 09/30/22 12:54 PG Care Time/CCT Total # of Minutes Spent Total Time Spent with Patient: Total time spent is greater than 50% in coordination of care (as documented) at patient's floor/unit and/or counseling patient: Coding Level of Care Code 34411 INT INP/OBS CARE 3/75MIN Diagnoses Acute on chronic heart failure with preserved ejection fraction (HFpEF) I50.33 CAD (coronary artery disease) I25.10 Pulmonary hypertension I27.20 MVP (mitral valve prolapse) I34.1 Mitral regurgitation I34.0 PAF (paroxysmal atrial fibrillation) I48.0 Aortic stenosis, severe I35.0 Dyslipidemia E78.5 Hypertension I10 Hypoxia R09.02
--- NOTE | 2022-08-31 14:39 | History & Physical Report ---
Date of Service August 31, 2022 Assessment & Plan (1) Acute on chronic heart failure with preserved ejection fraction (HFpEF): Plan: presented for cath w/ O2 sat 83% on RA and decision to admit for diuresis. ABG w/ low pO2 <32, HCO3 25, pCO2 39. Admit to PCU Cards consulted Check BNP/CBC/CMP/Mag/BNP/TSH Lasix 40mg IV ordered, likely require 40mg IV BID and will schedule BID once labs resulted to ensure adequate potassium/replacement. Check mag as well given paroxysmal afib Check daily weights Monitor I&Os, aim for net negative 1-2L/day Staley if needed but has urinal at bedside Continue Low Na diet <2gm daily Supplemental O2 to maintain sats would 2 step prior to discharge Will need repeat ECHO once optimized better. Consideration for SGLT2 inhibitor at d/c if not contraindicated at discharge PT/OT evals Monitor labs in AM (2) Aortic stenosis, severe: Plan: needing TAVR outpatient, follows with Dr Paige Also w/ mitral valve prolapse/regugitation (3) CAD (coronary artery disease): Plan: Hx HTN/HLD, follows with Dr Paige routinely s/p cath w/ evidence for SEVERE CAD involving dominant circumflex and D1 on cardiac catheterization today (will need f/u teritary) Continue aspirin 81 mg daily Continue high intensity statin therapy -- atorvastatin to be increased to 80mg daily to begin for tonight NO CHEST PAIN REPORTED AT PRESENT, EKG w/ CP (4) PAF (paroxysmal atrial fibrillation): Plan: currently in NSR monitor on telemetry Ref to [facility] upcoming watchman and has been on trial ASA 81mg dialy Continue metoprolol 12.5mg daily (5) Pulmonary hypertension: Plan: 2nd to above continue CPAP (6) MARLON (obstructive sleep apnea): Plan: CPAP HS w/ 6L (7) MVP (mitral valve prolapse): Plan: needing repair (8) Trigeminal neuralgia: Plan: noted hx, no treatment at this time History of Present Illness Chief Complaint: acute heart failure/post cardiac catheterization Primary Care Provider: Nova Rousseau, 76yo male with PMHx significant for severe aortic stenosis/mitral prolapse/regurgitation ( admitted by myself on 08/17 for volume overload from acute valvular heart failure with concerns for more urgent valve replacement) presented for cardiac catheterization in preparation for upcoming MVR. Was hypoxic on RA to 82-83% when presenting for cardiac catheterization. Placed on supplemental O2 and corrected while on 3L, currently on 4L post-cath without chest pain/O2 sat 98%. He was noted to have JVD during discussion and R heart cath was added to procedure. Recommended hospitalization post-cath for optimization/diuresis. Not on Eliquis for hx epistaxis/GI bleeding in the past but has been on ASA 81mg daily in anticipation for upcoming watchman implantation in the future. He denies any issues with bleeding since being on this medication. Evaluated in 229-2, at bedside. On 4L, SpO2 98%.Was given 40mg IV lasix in cath lab manager. Reports having LE and orthopnea. Monitors weights at home and has been 201- 205lb. No chest pain at present. Has been on metoprolol 12.5mg daily and lasix 20mg PO daily since discharged from the hospital last admission. Previously had his HCTZ discontinued for dizziness, last admit discontinued prior amlodipine, losartan. To be using 6L w/ CPAP at night. Labs pending. Will plan to continue lasix 40mg IV BID. Monitor labs in AM. Repeat ECHO once volume status improved. Allergies Allergy/AdvReac Type Severity Reaction Status Date / Time baclofen Allergy Unknown Unknown Verified 08/26/22 15:07 cyclobenzaprine Allergy Unknown Unknown Verified 08/26/22 15:07 [From Flexeril] doxazosin Allergy Unknown Unknown Verified 08/26/22 15:07 doxycycline Allergy Unknown Unknown Verified 08/26/22 15:07 duloxetine Allergy Unknown Unknown Verified 08/26/22 15:07 gabapentin Allergy Unknown Unknown Verified 08/26/22 15:07 lisinopril Allergy Unknown Unknown Verified 08/26/22 15:07 naproxen Allergy Unknown Unknown Verified 08/26/22 15:07 nortriptyline [From Pamelor] Allergy Unknown Unknown Verified 08/26/22 15:07 oxcarbazepine Allergy Unknown Unknown Verified 08/26/22 15:07 Penicillins Allergy Unknown Unknown Verified 08/26/22 15:07 Home Medications Medication Instructions Recorded Confirmed Type acetaminophen 500 mg tablet 1,000 mg PO TID PRN fever or pain 11/18/18 08/31/22 Rx #90 tabs mupirocin 2 % topical ointment 1 applic topical BID 7 days #22 04/24/21 08/31/22 Rx grams loratadine 10 mg tablet (Claritin) 10 mg PO DAILY #30 tabs 09/16/21 08/31/22 Rx potassium chloride 20 mEq 20 meq PO QAM #90 tabs 01/27/22 08/31/22 Rx tablet,extended release tamsulosin 0.4 mg capsule 0.4 mg PO HS #90 caps 01/27/22 08/31/22 Rx fluticasone propionate 50 2 spray intranasal DAILY #16 grams 03/24/22 08/31/22 Rx mcg/actuation nasal spray,suspension (Flonase Allergy Relief) bupropion HCl 150 mg 24 hr tablet, 150 mg PO QAM #90 tabs 05/26/22 08/31/22 Rx extended release (Wellbutrin XL) aspirin 81 mg tablet,delayed 81 mg PO DAILY #90 tabs 06/09/22 08/31/22 Rx release paroxetine HCl 40 mg tablet 40 mg PO QAM #90 tabs 06/18/22 08/31/22 Rx pantoprazole 40 mg tablet,delayed 40 mg PO DAILY #90 tabs 07/27/22 08/31/22 Rx release Oxygen Home #1 ea 08/22/22 08/31/22 Rx metoprolol succinate 25 mg 12.5 mg PO QAM #30 tabs 08/22/22 08/31/22 Rx tablet,extended release 24 hr atorvastatin 80 mg tablet 80 mg PO HS #30 tabs 09/02/22 Rx furosemide 40 mg tablet 40 mg PO QAM #30 tabs 09/02/22 Rx Past Med/Surg History Medical History Aneurysm, thoracic aortic pt unaware of size, follows with Dr. Paige Aortic atherosclerosis Aortic stenosis, moderate Aortic stenosis, severe Atrial fibrillation BPH with obstruction/lower urinary tract symptoms CAD (coronary artery disease) Cervical disc disease Chronic sinusitis Cognitive disorder Coronary artery calcification Depression with anxiety Dyslipidemia Encounter for pre-operative examination Glaucoma Hearing loss Hepatic steatosis History of central retinal vein occlusion Hypertension Lower GI bleed no current issues Lower urinary tract symptoms (LUTS) Lumbar spinal stenosis Mitral regurgitation Osteoarthritis PAC (premature atrial contraction) PAF (paroxysmal atrial fibrillation) Sleep apnea Stomach ulcer Trigeminal neuralgia received radiation for this, having numbess/tingling to right side of face since this Vitamin D deficiency Surgical History H/O cataract extraction (2013) H/O colonoscopy History of cochlear implant (01/12/12) BILATERAL History of pilonidal cyst removed History of umbilical hernia repair S/P foot surgery, right (12/2010) removal of heel spur S/P laser trabeculoplasty of eye (10/2014) b/l S/P nasal endoscopy with nasal polypectomy (2011) S/P rotator cuff repair b/l shoulders Family History Mother No pertinent family history Other Hypertension Denies family history of Ovarian cancer Prostate cancer Diabetes Myocardial infarction Breast cancer Colorectal cancer Cancer Social History Smoking Status: Never smoker Second Hand Exposure: No; Hx Alcohol Use: No Hx Substance Use: No Preferred Language: [place] Communication Ability: Effective Visual Impairment: No Limitations Hearing Ability: Cochlear Implant Transplant Immunologist Required: No Beliefs That Will Affect Care: None marital status: Current Living Situation: Spouse and Family current occupational status: retired How many Children do You have: 1 Feels Safe at Home: Yes Childhood Exposure to Second-Hand Smoke: Yes Diet Comment: regular caffeine: Yes (Soda 6 per day. Coffee 1 cup per day.) during the past year weight has: remained stable Dental Care, Regularly: No Physical Activity Frequency: Daily Seatbelt Use: sometimes Sunscreen Use: No Assistive Devices: Cane and Walker Review of Systems Review of Systems: All systems reviewed & are unremarkable except as noted in HPI & below Physical Exam Physical Exam: General: WD/WN male sitting up in bed, at bedside, NAD HEENT: head normocephalic, atraumatic, mmm, trachea midline, +JVD, slightly hard of hearing (hearing aides in place bilaterally) Resp: diminished in the bases with faint expiratory wheezing in the bases, on 4L NC SpO2 98% CV: RRR, S1, quiet S2, HARSH systolic murmur w/ radiation RUSB, +murmur w/ radiation to axillae, trace LE edema, calves nontender, pulses palpable GI: +BS, slightly distended, obese, NONTENDER : no staley, urinal at bedside MSK/Neuro: no focal deficit/slurred speech/facial droop Psych: AOx3, pleasant and cooperative Results & Data Results & Data Vital Signs (Past 12 Hours) Vital Signs Pulse Resp BP Pulse Ox O2 Del Method O2 Flow Rate 08/31/22 14:15 85 16 126/72 98 Nasal Cannula 4 08/31/22 14:00 76 16 130/72 98 Nasal Cannula 4 08/31/22 13:45 72 16 125/76 98 Nasal Cannula 4 08/31/22 13:30 84 16 122/76 98 Nasal Cannula 4 08/31/22 13:15 83 16 130/83 98 Nasal Cannula 4 08/31/22 13:00 81 16 124/81 98 Nasal Cannula 4 08/31/22 12:45 91 H 16 120/89 96 Nasal Cannula 4 08/31/22 12:30 77 16 116/74 96 Nasal Cannula 4 08/31/22 12:16 83 16 125/84 96 Nasal Cannula 4 08/31/22 12:00 72 16 115/72 90 Nasal Cannula 3 08/31/22 10:30 87 16 96 Nasal Cannula 3 08/31/22 10:03 93 H 16 138/79 82 L Room Air Laboratory Results 08/31/22 08/31/22 08/31/22 Range/Units 13:53 11:42 11:39 POC pH 7.39 7.41 (7.35-7.45) POC pCO2 41 39 (35-46) mmHg POC pO2 < 32 L < 32 L (80-95) mmHg POC HCO3 25 H 24 (19-24) kevin/L POC Total CO2 26 25 (24-31) mmol/L POC Base Excess 0.0 -1.0 (-9-1.8) kevin/L POC ABG O2 Sat 57.0 L 61.0 L (90-95) % SARS-CoV-2 (PCR) Pending 08/31/22 Range/Units 11:33 POC pH 7.45 (7.35-7.45) POC pCO2 30 L (35-46) mmHg POC pO2 60 L (80-95) mmHg POC HCO3 21 (19-24) kevin/L POC Total CO2 22 L (24-31) mmol/L POC Base Excess -3.0 (-9-1.8) kevin/L POC ABG O2 Sat 92.0 (90-95) % SARS-CoV-2 (PCR) Supervising Physician Co-Signing Physician Notes I personally saw and examined the patient. I verified all tobar points and agree with Elise Fatima PA-C with the following exceptions and/or additions: 76 year old male direct admission from cardiac cath lab manager for hypoxia and acute on chronic heart failure. O/E A&Ox3, elevated JVD, HS RRR, LARISSA LUSB, Chest CTAB, Abdo SNT A/P Acute on chronic HFpEF - Lasix 40mg IV BID, strict I&Os, daily weights, appreciate cardiology ongoing management Hypoxia - aim O2 sats > 90% PG Care Time/CCT Total # of Minutes Spent Total Time Spent with Patient: Total time spent is greater than 50% in coordination of care (as documented) at patient's floor/unit and/or counseling patient: Coding Level of Care Code 38035 INT INP/OBS CARE 3/75MIN Diagnoses Acute on chronic heart failure with preserved ejection fraction (HFpEF) I50.33 Aortic stenosis, severe I35.0 CAD (coronary artery disease) I25.10 PAF (paroxysmal atrial fibrillation) I48.0 Pulmonary hypertension I27.20 MARLON (obstructive sleep apnea) G47.33 MVP (mitral valve prolapse) I34.1 Trigeminal neuralgia G50.0
[2022-08-31] MEDS ORDERED: ACETAMINOPHEN 500 MG TAB PO PRN (15:09)
[2022-08-31 15:35] LABS: Basophils # (auto) 0.09 K/uL (0-0.2); Basophils % (auto) 1.4 %; Eosinophils # (auto) 0.22 K/uL (0-0.50); Eosinophils % (auto) 3.4 %; Hematocrit (blood only) 37.6 % (42.0-52.0); Immature Granulocytes # (auto) 0.07 K/uL (0.01-0.20); Immature Granulocytes % (auto) 1.1 %; Lymphocytes # (auto) 0.57 K/uL (1.2-3.4); Lymphocytes % (auto) 8.9 %; Mean Corpuscular Hgb Conc 31.9 g/dL (32.0-36.0); Mean Corpuscular Volume 90.8 fL (80.0-100.0); Mean Platelet Volume 9.7 fL (9.4-12.4); Monocytes # (auto) 0.38 K/uL (0.11-0.59); Monocytes % (auto) 5.9 %; Neutrophils % (auto) 79.3 %; Platelet Count 306 K/uL (130-400); RDW Coefficient of Variation 15.4 % (11.5-14.5); RDW Standard Deviation 50.8 fL (36.4-46.3); Red Blood Count 4.14 M/uL (4.70-6.10); White Blood Count 6.43 K/ul (4.8-10.8)
--- NOTE | 2022-08-31 15:50 | XRay Report ---
SINGLE VIEW CHEST CLINICAL HISTORY: Hypoxia. Volume overload FINDINGS: 2 AP, portable, upright chest radiographs are compared to study dated 08/17/2022 PA correlat ion is made with chest CT dated 11/15/2017 The examination is degraded by portable technique and apica l lordotic positioning. The heart is enlarged noting atherosclerotic calcification of the thoracic ao rta. There is pulmonary vascular congestion. Chronic interstitial thickening is similar to previous. There is bibasilar scarring/atelectasis. No airspace consolidation or large pleural effusion is ident ified. No pneumothorax is seen. The skeletal structures are osteopenic. There are chronic/old left-si ded rib fractures. IMPRESSION: Cardiomegaly with pulmonary vascular congestion. ACT 112: Negative or not required by law. Electronically signed by: Kimo Mora M.D. 08/31/2022 3:49 PM
[2022-08-31 15:51] LABS: Albumin Globulin Ratio 1.3 (0.9-2); Albumin Level 3.7 gm/dl (3.4-5.0); BUN Creatinine Ratio 16.9 (10-20); Bilirubin,Total 1.1 mg/dl (0.2-1.0); Calcium 8.9 mg/dl (8.6-10.3); Est GFR (Non-African American) 60.4 ml/min; Globulin 2.9 gm/dl (2.5-4.0); Magnesium 1.7 mg/dl (1.7-2.4); Potassium 3.7 mmol/L (3.5-5.1); Total Protein 6.6 gm/dl (6.0-8.3)
[2022-08-31] MEDS ORDERED: MAGNESIUM SULFATE / D5W 1 GM/100 ML BAG IV ONE (15:54)
[2022-08-31] MEDS ORDERED: POTASSIUM CHLORIDE CRTAB 20 MEQ TABCR PO STA (15:57)
--- NOTE | 2022-08-31 16:14 | Communication Note ---
Date of Service: August 31, 2022 wt up ~5kg from discharge last admission will continue lasix 40mg IV BID, BNP elevated 905 from 627 last hospitalization, and was discharged on lasix 20mg PO daily. Monitor response/may need higher doses of diuretics at d/c to maintain volume status. Limited last admission by hypotension/dizziness
[2022-08-31] MEDS: MUPIROCIN 2% OINT 22 GM TUBE TOP SCH (20:36)
[2022-08-31] MEDS: ATORVASTATIN 40 MG TAB PO SCH (20:37)
[2022-08-31] MEDS: FUROSEMIDE 40 MG/4 ML VIAL IV SCH (20:37)
[2022-09-01 07:58] LABS: Hematocrit (blood only) 37.4 % (42.0-52.0); Hemoglobin 12.1 g/dl (14.0-18.0); Mean Corpuscular Hemoglobin 29.2 pg (25.0-34.0); Mean Corpuscular Hgb Conc 32.4 g/dL (32.0-36.0); Mean Corpuscular Volume 90.1 fL (80.0-100.0); Mean Platelet Volume 9.4 fL (9.4-12.4); Platelet Count 313 K/uL (130-400); RDW Coefficient of Variation 15.2 % (11.5-14.5); Red Blood Count 4.15 M/uL (4.70-6.10); White Blood Count 7.01 K/ul (4.8-10.8)
[2022-09-01 08:21] LABS: Albumin Globulin Ratio 1.3 (0.9-2); Albumin Level 3.6 gm/dl (3.4-5.0); BUN Creatinine Ratio 16.3 (10-20); Bilirubin,Total 1.1 mg/dl (0.2-1.0); Calcium 9.1 mg/dl (8.6-10.3); Creatinine Clr Calc Pharmacy 53.3 ml/min; Est GFR (African American) 62.9 ml/min; Est GFR (Non-African American) 54.3 ml/min; Globulin 2.8 gm/dl (2.5-4.0); Magnesium 1.8 mg/dl (1.7-2.4); Potassium 4.3 mmol/L (3.5-5.1); Total Protein 6.4 gm/dl (6.0-8.3)
[2022-09-01] MEDS: LORATADINE 10 MG TAB PO SCH (08:32)
[2022-09-01] MEDS: ASPIRIN 81 MG ECTAB PO SCH (08:32)
[2022-09-01] MEDS: METOPROLOL SUCC 25MG EXT REL TAB PO SCH (08:32)
[2022-09-01] MEDS: MUPIROCIN 2% OINT 22 GM TUBE TOP SCH ×2 (08:33→20:30)
[2022-09-01] MEDS: buPROPion XL 150 MG TABCR PO SCH (08:33)
[2022-09-01] MEDS: PANTOprazole 40 MG TAB PO SCH (08:33)
[2022-09-01] MEDS: FUROSEMIDE 40 MG/4 ML VIAL IV SCH ×2 (08:33→20:30)
[2022-09-01] MEDS: FLUTICASONE PROPIONATE NA SPR 16 GM BTL NAE SCH (08:34)
[2022-09-01] MEDS ORDERED: NON-FORMULARY MEDICATION (Paroxetine Hcl 40 mg tablet) PO SCH (09:00)
[2022-09-01] MEDS: PARoxetine HCL 20 MG TAB PO SCH (09:02)
--- NOTE | 2022-09-01 12:26 | Hospitalist Progress Note ---
Date of Service September 01, 2022 Assessment & Plan (1) Acute on chronic heart failure with preserved ejection fraction (HFpEF): Plan: presented for cath for preop workup for severe and found to have POx 83% on RA with acute respiratory failure with hypoxia and decision to admit for diuresis. Cardic cath LHC and RHC with evidence of severe CAD involving proximal Dominant circumflex, and proximal large caliber D1, severe PULM HTN from left sided failure -has diuresed and weaning down off O2 at rest; weight is up (not accurate?) but net I/Os -4.5 L BPs controlled, HR controlled -continue lasix 40mg IV bid -follow BMP, mag and replace lytes to keep optimal-give 1 gram IV mag today -continue metoprolol -Check daily weights, Monitor I&Os, aim for net negative 1-2L/day -Continue Low Na diet <2gm daily -Supplemental O2 to maintain sats-would 2 step prior to discharge -Will need ROSY once improved clinically from CHF -Consideration for SGLT2 inhibitor at d/c if not contraindicated at discharge- Nurse navigator to carrera check -Appreciate Cardiology consultation (2) Aortic stenosis, severe: Plan: needing TAVR outpatient, follows with Dr Paige Also w/ mitral valve prolapse/non severe regurgitation-needs preop ROSY (3) CAD (coronary artery disease): Plan: s/p cath w/ evidence for SEVERE CAD involving dominant circumflex and D1 on cardiac catheterization -Continue aspirin 81 mg daily -Continue high intensity statin therapy -- atorvastatin increased to 80mg daily -needs revascularization at time of or prior to AVR-at tertiary care -continue metoprolol (4) PAF (paroxysmal atrial fibrillation): Plan: currently in NSR, has some short bursts of PAT Not on anticoagulation therapy due to recurrent epistaxis and history of GI bleed. Has been referred to [facility] for Watchman and has been on a trial of daily antiplatelet therapy as per EP recommendations there. Continue beta-sid. monitor on telemetry (5) Pulmonary hypertension: Plan: 2nd to above continue CPAP and diuresis, supplemental O2 (6) MARLON (obstructive sleep apnea): Plan: CPAP HS w/ 6L (7) MVP (mitral valve prolapse): Plan: as above (8) Trigeminal neuralgia: Plan: noted hx, no treatment at this time Plan DVT proph-hold Lovenox for h/o recurrent epistaxis but if stay prolonged, could add on low dose Dispo-continued stay on PCU Admission and Anticipated Discharge Date Admission Date: August 31, 2022 Subjective Feeling about the same, not really SOB. Has chest pressure at times especially with deep breaths and moving his left arm across his chest. Is making urine. Weaning down off O2 Tele with SR, 1st deg AVB, small bursts PAT, IVCD, PVCs, rates 70s Physical Exam Constitutional: WD/WN, vitals as above Neck: trachea midline, no thyromegaly Respiratory: normal respiratory effort; no cough Auscultation: + diminished lung sounds (bibasilar); no crackles, no rhonchi and no wheezes Cardiovascular: Rate/Rhythm: regular rate and regular rhythm Heart Sounds: + murmur (2/6 LARISSA at RUSB) Extremities: no edema Chest (Breasts): Chest: normal inspection of chest Gastrointestinal (Abdomen): normal bowel sounds, soft, nontender, no hepatosplenomegaly Musculoskeletal: Extremities: extremities normal to inspection; no cyanosis and no clubbing Skin: no rashes, warm and dry Neurologic: moves all extremities and awake; no focal motor deficits Psychiatric: A+Ox3, euthymic affect Lymphatic: no lymphedema Results & Data Results & Data Vital Signs (Past 12 Hours) Vital Signs Temp Pulse Pulse Resp BP Pulse Ox O2 Del Method 09/01/22 11:49 36.6 C 75 18 102/69 98 Nasal Cannula 09/01/22 07:55 36.9 C 83 18 105/61 98 Nasal Cannula 09/01/22 07:00 Nasal Cannula 09/01/22 07:00 83 09/01/22 03:09 37.0 C 82 16 123/81 98 Room Air O2 Flow Rate 09/01/22 11:49 4 09/01/22 07:55 09/01/22 07:00 4 09/01/22 07:00 09/01/22 03:09 Laboratory Results CBC, BMP, magnesium reviewed PG Care Time/CCT Total # of Minutes Spent Total Time Spent with Patient: Total time spent is greater than 50% in coordination of care (as documented) at patient's floor/unit and/or counseling patient: Coding Level of Care Code 47054 SUB INP/OBS CARE 3/50MIN Diagnoses Acute on chronic heart failure with preserved ejection fraction (HFpEF) I50.33 Aortic stenosis, severe I35.0 CAD (coronary artery disease) I25.10 PAF (paroxysmal atrial fibrillation) I48.0 Pulmonary hypertension I27.20 MARLON (obstructive sleep apnea) G47.33 MVP (mitral valve prolapse) I34.1 Trigeminal neuralgia G50.0
[2022-09-01] MEDS: ATORVASTATIN 40 MG TAB PO SCH (20:29)
[2022-09-02 07:29] LABS: BUN Creatinine Ratio 18.5 (10-20); Calcium 9.2 mg/dl (8.6-10.3); Creatinine Clr Calc Pharmacy 49.8 ml/min; Est GFR (African American) 59.5 ml/min; Est GFR (Non-African American) 51.4 ml/min; Magnesium 1.8 mg/dl (1.7-2.4)
[2022-09-02] MEDS: ASPIRIN 81 MG ECTAB PO SCH (08:53)
[2022-09-02] MEDS: PARoxetine HCL 20 MG TAB PO SCH (08:53)
[2022-09-02] MEDS: METOPROLOL SUCC 25MG EXT REL TAB PO SCH (08:53)
[2022-09-02] MEDS: FLUTICASONE PROPIONATE NA SPR 16 GM BTL NAE SCH (08:54)
[2022-09-02] MEDS: FUROSEMIDE 40 MG/4 ML VIAL IV SCH (08:54)
[2022-09-02] MEDS: LORATADINE 10 MG TAB PO SCH (08:54)
[2022-09-02] MEDS: PANTOprazole 40 MG TAB PO SCH (08:54)
[2022-09-02] MEDS: MUPIROCIN 2% OINT 22 GM TUBE TOP SCH (08:54)
[2022-09-02] MEDS: buPROPion XL 150 MG TABCR PO SCH (08:54)
[2022-09-02] MEDS ORDERED: MAGNESIUM SULFATE / D5W 1 GM/100 ML BAG IV ONE (09:26)
--- NOTE | 2022-09-02 10:43 | Cardiology Progress Note ---
Date of Service September 02, 2022 Assessment & Plan (1) Acute on chronic heart failure with preserved ejection fraction (HFpEF): Plan: -significantly elevated filling pressures at time of catheterization. -responding well to intravenous diuretics. -BUN and creatinine are now increasing. -he appears euvolemic at this time. -consider changing to oral diuretics. (2) CAD (coronary artery disease): Plan: -80% proximal D1, 80% proximal LCx. -revascularization options to be determined by TAVR team. (3) Mitral regurgitation: Plan: -moderate mitral regurgitation with posterior leaflet prolapse. -need for intervention to be determined by TAVR team. (4) PAF (paroxysmal atrial fibrillation): Plan: -remains in sinus rhythm at this time. -not on anticoagulation due to recurrent epistaxis and GI bleeding. -was to undergo an evaluation for possible watch man procedure. (5) Aortic stenosis, severe: Plan: -referral to TAVR program at [place] has already been arranged. Admission and Anticipated Discharge Date Admission Date: August 31, 2022 Subjective The patient is resting comfortably in bed without complaints of chest pain, dyspnea, or palpitations. Physical Exam Physical Exam: In general is well-developed well-nourished white male in no acute distress. HEENT exam notable for bilateral cochlear implants. Neck is supple with mildly delayed and prolonged carotid upstrokes. No obvious transmitted murmur or bruit. No jugular venous distention. Cardiovascular exam reveals a regular r hythm with distant heart sounds. A 2/6 crescendo decrescendo systolic murmur heard loudest at the base. A 2/6 holosystolic systolic murmurs heard at the apex. No S3. Lungs are clear without rales, rhonchi or wheezes. Abdomen is obese without bruits. Extremities reveal intact radial artery pulses bilaterally. There is no peripheral edema. Results & Data Vital Signs (Past 12 Hours) Vital Signs Temp Pulse Pulse Resp BP Pulse Ox O2 Del Method 09/02/22 07:51 Nasal Cannula 09/02/22 07:51 90 09/02/22 07:08 37.2 C 64 18 111/71 93 Nasal Cannula 09/02/22 02:49 36.7 C 87 18 98/61 L 94 Nasal Cannula 09/02/22 00:43 81 09/01/22 23:06 36.8 C 90 18 120/83 94 Nasal Cannula O2 Flow Rate 04/12/23 07:51 1 09/02/22 07:51 09/02/22 07:08 1 09/02/22 02:49 1 09/02/22 00:43 09/01/22 23:06 1 PG Care Time/CCT Total # of Minutes Spent Total Time Spent with Patient: Total time spent is greater than 50% in coordination of care (as documented) at patient's floor/unit and/or counseling patient: Coding Level of Care Code 66905 SUB INP/OBS CARE 3/50MIN Diagnoses Acute on chronic heart failure with preserved ejection fraction (HFpEF) I50.33 CAD (coronary artery disease) I25.10 Mitral regurgitation I34.0 PAF (paroxysmal atrial fibrillation) I48.0 Aortic stenosis, severe I35.0
--- NOTE | 2022-09-02 14:09 | Discharge Summary ---
Date of Service September 02, 2022 Admission HPI Per Admitting Provider 76yo male with PMHx significant for severe aortic stenosis/mitral prolapse/regurgitation ( admitted by myself on 08/17 for volume overload from acute valvular heart failure with concerns for more urgent valve replacement) presented for cardiac catheterization in preparation for upcoming MVR. Was hypoxic on RA to 82-83% when presenting for cardiac catheterization. Placed on supplemental O2 and corrected while on 3L, currently on 4L post-cath without chest pain/O2 sat 98%. He was noted to have JVD during discussion and R heart cath was added to procedure. Recommended hospitalization post-cath for optimization/diuresis. Not on Eliquis for hx epistaxis/GI bleeding in the past but has been on ASA 81mg daily in anticipation for upcoming watchman implantation in the future. He denies any issues with bleeding since being on this medication. Evaluated in 229-2, at bedside. On 4L, SpO2 98%.Was given 40mg IV lasix in process laboratory specialist. Reports having LE and orthopnea. Monitors weights at home and has been 201-205lb. No chest pain at present. Has been on metoprolol 12.5mg daily and lasix 20mg PO daily since discharged from the hospital last admission. Previously had his HCTZ discontinued for dizziness, last admit discontinued prior amlodipine, losartan. To be using 6L w/ CPAP at night. Labs pending. Will plan to continue lasix 40mg IV BID. Monitor labs in AM. Repeat ECHO once volume status improved. Principal Diagnosis Acute on chronic HFpEF Acute respiratory failure with hypoxia Discharge Exam Constitutional WD/WN, vitals as above Neck trachea midline, no thyromegaly Respiratory normal respiratory effort; no cough Auscultation: + diminished lung sounds (bibasilar); no crackles, no rhonchi and no wheezes Cardiovascular Rate/Rhythm: regular rate and regular rhythm Heart Sounds: + murmur (2/6 LARISSA at RUSB) Extremities: no edema Chest (Breasts) Chest: normal inspection of chest Gastrointestinal (Abdomen) normal bowel sounds, soft, nontender, no hepatosplenomegaly Musculoskeletal Extremities: extremities normal to inspection; no cyanosis and no clubbing Skin no rashes, warm and dry Neurologic moves all extremities and awake; no focal motor deficits Psychiatric A+Ox3, euthymic affect Lymphatic no lymphedema Discharge Data Allergies Allergy/AdvReac Type Severity Reaction Status Date / Time baclofen Allergy Unknown Unknown Verified 08/26/22 15:07 cyclobenzaprine Allergy Unknown Unknown Verified 08/26/22 15:07 [From Flexeril] doxazosin Allergy Unknown Unknown Verified 08/26/22 15:07 doxycycline Allergy Unknown Unknown Verified 08/26/22 15:07 duloxetine Allergy Unknown Unknown Verified 08/26/22 15:07 gabapentin Allergy Unknown Unknown Verified 08/26/22 15:07 lisinopril Allergy Unknown Unknown Verified 08/26/22 15:07 naproxen Allergy Unknown Unknown Verified 08/26/22 15:07 nortriptyline [From Pamelor] Allergy Unknown Unknown Verified 08/26/22 15:07 oxcarbazepine Allergy Unknown Unknown Verified 08/26/22 15:07 Penicillins Allergy Unknown Unknown Verified 08/26/22 15:07 Consultations 08/31/22 15:51 Consult Cardiology Routine 08/31/22 18:08 [facility] CHF Program Referral Routine Procedures Performed Operation Date: 08/31/22 11:00 Actual Procedures p Cath, Right Heart with Cors - Marco Antonio Reno MD p Cath, Right and Left Heart - Marco Antonio Reno MD Ordered Studies 08/31/22 06:32 CL Cath Imgs for PACS use only Routine Hospital Course (1) Acute on chronic heart failure with preserved ejection fraction (HFpEF): presented for cath for preop workup for severe and found to have POx 83% on RA with acute respiratory failure with hypoxia and decision to admit for diuresis. 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 rise up a bit on day of discharge -follow BMP, mag and replace lytes to keep optimal-give 1 gram IV mag today--> will have outpt BMP with CHF clinic within 1 week -plan to start Jardiance as outpt if renal function stable on next check, f/u with CHF clinic -continue metoprolol -Check daily weights,low sodium diet, fluid restriction at home -Will need ROSY once improved clinically from CHF for MV eval -Appreciate Cardiology consultation (2) Aortic stenosis, severe: needing TAVR outpatient, follows with Dr Paige Also w/ mitral valve prolapse/non severe regurgitation-needs preop ROSY after CHF optimized (3) CAD (coronary artery disease): s/p cath w/ evidence for SEVERE CAD involving dominant circumflex and D1 on cardiac catheterization -Continue aspirin 81 mg daily -Continue high intensity statin therapy -- atorvastatin increased to 80mg daily -needs revascularization at time of or prior to AVR-at tertiary care -continue metoprolol (4) PAF (paroxysmal atrial fibrillation): currently in NSR, has some short bursts of PAT Not on anticoagulation therapy due to recurrent epistaxis and history of GI bleed. Has been referred to [facility] for Watchman and has been on a trial of daily antiplatelet therapy as per EP recommendations there. Continue beta-sid. monitor on telemetry-none here (5) Pulmonary hypertension: 2nd to above continue CPAP and diuresis, supplemental O2 not needed during day but has for at night (6) MARLON (obstructive sleep apnea): CPAP HS w/ 6L (7) MVP (mitral valve prolapse): as above (8) Trigeminal neuralgia: noted hx, no treatment at this time Plan DVT proph-did not give Lovenox for h/o recurrent epistaxis and with short stay Dispo-stable for discharge to home Total Time Total Time Spent Total Time Spent (In Minutes): 35 min Discussed care with Cardiology Discharge Plan Discharge Items Patient Disposition: Home - Self-Care Reason For Visit: ACUTE CHF Discharge Diagnosis: Acute on chronic CHF, Severe aortic stenosis, Acute respiratory failure with hypoxia Activity: As commented below Bathing: No limitations Exercise/Sports: As tolerated Non-emergency contact: Primary Care Provider and Irrigationist Designer Call non-emergency contact if: you have any medication questions and your symptoms worsen Follow-up/Referrals: Nova Rousseau DO [Primary Care Provider] - Yadira Meeks PA-C [Physician Film Laboratory Technician] - 09/08/22 2:00 pm (Congestive Heart Failure Program Appointment Information Early follow up is essential to managing your heart failure. An appointment has been scheduled for you with the [facility] Heart Failure Program within 7 days of discharge. Anticipate this visit to be 30-60 minutes long. Please expect a wafer substrate tester phone call from one of our nurses approximately 48 hours from discharge. They will also be placing an order for lab work to be completed 1-2 days prior to your heart failure follow up appointment. Please be sure to have this done so we can go over the results when you come in. Office Location The cardiology office building is located in front of the hospital at [address] [facility]. Bring the following with you to your follow-up doctor appointments: Please bring your daily weight log any discharge paperwork all of your medication bottles with you to this visit. ) Diet: Low Sodium (2gm) Fluids: 1500ml (6 cups) Addtl Attending Provider Instructions: ACTIVITY RECOMMENDATIONS: Excess manipulation of the wrist should be avoided for the next 24-48 hours. * No lifting over 2 pounds (approximately a 1/2 gallon of milk) with the utilized arm for 24 hours. * No strenuous activity such as bowling or tennis for 3 days. * Keep the site of the procedure covered with a bandage for 24 hours. *You may shower the day after the procedure. Do not take a tub bath or submerge the puncture site in water for the next 3 days. *Do not operate any motorized equipment for 3 days. SPECIAL CARE INSTRUCTIONS: The site may be slightly bruised and sore following your procedure. Should any of the following occur, contact the Dr. who performed your procedure. 1. Redness/inflammation, swelling, chills, or fever, or colored drainage at procedure site within 3-7 days after your procedure. 2. Coldness, discoloration, ongoing numbness, severe pain, or swelling. Expect mild tingling of hand and tenderness at the puncture site for up to three days. If this persists beyond three days, or other symptoms develop, notify the Dr. who performed your procedure. BLEEDING: If the procedure site on your wrist begins to bleed, do not panic 1. Place 1 or 2 fingers firmly just slightly above the insertion site to stop the bleeding. You may be able to feel your pulse as you hold pressure. 2. Lift your finger after 5 minutes to see if the bleeding has stopped. 3. Once the bleeding has stopped, gently wipe the wrist area clean with a bandage. * If the bleeding from your wrist does not stop after 10 minutes, or if there is a large amount of bleeding or spurting, call 911 (do not drive yourself to the hospital). SKIN IRRITATION: * You may experience some redness and/or swelling in the area where radiation was administered. If any skin irritation occurs, please contact your family physician. FOLLOW UP VISIT: Keep any scheduled doctor appointments. Addtl Learning Support Resource Room Teacher Provider Instructions: Call your Primary Care doctor if any of the following symptoms or problems start or get worse: * Shortness of breath or difficulty breathing * Wake up at night short of breath * Chest pain * Cough * Swelling of your hands, feet, or legs * More fatigued or tired with your normal activity * Palpitations - sudden fast heart beats WEIGHT * Weigh yourself every morning after using the bathroom. * Use the same scale. * Wear the same amount of clothing. * Write your weight down on a chart. * Call your Primary Care doctor if you gain more than 2-3 pounds in 1-2 days. MEDICATIONS * Use this discharge instruction sheet for medication instructions. * Take your medications at the time your doctor ordered. * Do not skip a dose of your medicines. * If you miss a dose of medicine, take it as soon as possible, but DO NOT DOUBLE A DOSE. * Read your medicine information when you get home. * Know all of the side effects of your medicine. If in doubt, ask your pharmacist * Call your Primary Care doctor's office if you have any side effects. * Be sure all of your doctors know what medicine and herbs you take (including cold, flu, and herbal medicine). Take the following with you to your follow-up doctor appointments: * Weight Chart * Medication List * List of questions Do not drink excessive alcohol, beer or wine. Pending Studies at Discharge: No Stand-Alone Forms: My Collplant, Smoking Cessation Medications and DC Order Prescriptions: New atorvastatin 80 mg tablet 80 mg PO HS Qty: 30 0RF furosemide 40 mg Tablet 40 mg PO QAM Qty: 30 0RF Continued tamsulosin 0.4 mg capsule 0.4 mg PO HS Qty: 90 1RF potassium chloride 20 mEq tablet extended release 20 meq PO QAM Qty: 90 1RF bupropion HCl [Wellbutrin XL] 150 mg tablet extended release 24 hr 150 mg PO QAM Qty: 90 3RF paroxetine HCl 40 mg tablet 40 mg PO QAM Qty: 90 1RF pantoprazole 40 mg tablet,delayed release (DR/EC) 40 mg PO DAILY Qty: 90 2RF mupirocin 2 % ointment 1 applic topical BID 7 Days Qty: 22 0RF loratadine [Claritin] 10 mg tablet 10 mg PO DAILY Qty: 30 1RF aspirin 81 mg tablet,delayed release (DR/EC) 81 mg PO DAILY Qty: 90 3RF acetaminophen 500 mg tablet 1,000 mg PO TID PRN (Reason: fever or pain) Qty: 90 5RF fluticasone propionate [Flonase Allergy Relief] 50 mcg/actuation spray,suspension 2 spray intranasal DAILY Qty: 16 1RF Rx Instructions: administer into each nostril (DME) Oxygen Home Liters Per Minute See Rx Instructions .ROUTE .MEDSUPPLY Qty: 1 0RF Rx Instructions: 6 liters oxygen blended into CPAP - use with sleep. metoprolol succinate 25 mg Tablet Extended Release 24 Hr 12.5 mg PO QAM Qty: 30 2RF Rx Instructions: for your heart Discontinued atorvastatin 40 mg tablet 40 mg PO QAM Qty: 90 1RF furosemide [Lasix] 20 mg tablet 20 mg PO QAM Qty: 30 2RF Rx Instructions: to prevent water retention from congestive heart. Discharge Orders: Discharge Order- CHF (Routine); Ordered 09/02/22 Ordered By: Kirstie Lopez Admission Data Admit Date/Time: 08/31/22 14:07 Attending Provider: Kirstie Lopez Admit Provider: Wilver Infante Primary Care Provider: Nova Rousseau Other Providers: Marco Antonio Reno ; Yadira Meeks Home [facility] Coding Level of Care Code 21942 INP/OBS DISCH >30 MIN Diagnoses Acute on chronic heart failure with preserved ejection fraction (HFpEF) I50.33 Aortic stenosis, severe I35.0 CAD (coronary artery disease) I25.10 PAF (paroxysmal atrial fibrillation) I48.0 Pulmonary hypertension I27.20 MARLON (obstructive sleep apnea) G47.33 MVP (mitral valve prolapse) I34.1 Trigeminal neuralgia G50.0
[2022-09-03] MEDS ORDERED: FUROSEMIDE 40 MG TAB PO SCH (09:00)
== END 2022-09-02 15:45 | disposition home health service (06) | DRG 286 ==
LOC: CC 09:46 → 2S 14:07 → SUATTDRO 14:07

== ENCOUNTER 2022-10-07 17:36 | Observation (INO) ==
--- NOTE | 2022-10-07 17:58 | Emergency Department Note ---
Impression & Plan Syncope and collapse ED Provider Note HISTORY OF PRESENT ILLNESS: Patient is a 76-year-old male presenting after syncopal episode. Patient reports that he was walking down the hallway when the next thing he knew he was on the ground with his head against the door. He denies any chest pain, shortness of breath or lightheadedness prior to passing out. He reports frequent episodes of syncope and is supposed to have an evaluation for a TAVR on 10/26/2022 at [facility]. He reports that his last episode of near syncope was a week and a half ago and the last episode of full syncope was 1 month ago. He is on a baby aspirin daily. Denies any changes in vision. Jewel es any numbness or tingling or weakness in extremities. Reports that he is always short of breath with exertion. Reports his tetanus is up-to-date. ROS: as above PHYSICAL EXAM: Constitutional: Patient appears in no acute distress. HENT: Head: Normocephalic. Hematoma to right frontal forehead just above medial right eyebrow. Two small (<1 cm) parallel lacerations overlying hematoma. Patient also noted to have bilateral cochlear implants Eyes: EOMI, PERRL Mouth/Throat: Mucous membranes moist. Neck: Trachea midline. Neck supple. No midline cervical spine tenderness to palpation. Cardiovascular: RRR, No murmurs, rubs or gallops. Intact distal pulses. Pulmonary/Chest: No respiratory distress. Breath sounds clear and equal bilaterally. No wheezes or rales. No chest wall tenderness to palpation. Abdominal: BS +. Abdomen soft, no tenderness, rebound or guarding. Back: No midline spinal tenderness, no paraspinal tenderness, no CVA tenderness. Musculoskeletal: No edema, tenderness or deformity noted. Skin: Warm and dry. No rash, erythema, pallor or cyanosis Psychiatric: Appropriate mood and affect for situation. Neurological: Alert and keenly responsive. CN II-XII grossly intact, moving all extremities equally and fully. MDM: - Vitals signs stable. - History obtained via patient. Patient presents with syncopal episode. Patient reports he was walking on the hallway when suddenly he woke up on the ground with his head against the door. He denies any chest pain, shortness of breath or lightheadedness prior to passing out. He reports frequent episodes of syncope. Denies any changes in vision, numbness or tingling or weakness in extremities. He is on baby aspirin daily. - Chronic conditions affecting care: CAD; paroxysmal Afib; HTN; severe aortic stenosis; HFpEF; mitral valve prolapse with regurgitation; HLD - Differential diagnoses include, but are not limited to: ACS; pulmonary embolism; intracranial blood; CVA; pneumothorax - Order placed for continuous cardiac monitoring. At this time, monitor showed rate of 72 bpm with normal sinus rhythm, per my interpretation. - External medical records reviewed. Patient cardiology clinic note was reviewed from 09/17/2022. Patient has severe aortic stenosis and has arr angements for TAVR evaluation in October. - EKG reviewed by myself showed sinus rhythm. Rate 68 bpm. QTc 461. No acute ischemic changes. Patient is noted to have some ST depressions in the anterolateral leads. However, these are noted on previous EKGs from 08/20/2022 - Laboratory workup interpreted by myself showed normal WBC; stable hemoglobin; normal PT/INR; stable electrolytes; normal creatinine; elevated troponin (30.2); normal TSH - UA negative for infection - CXR negativ for pneumonia, per my interpretation. - CT head wo contrast negative for intracranial pathology. Noted to have left forehead tissue swelling - Discussed results with patient and family at bedside. His syncope is likely secondary to his severe aortic stenosis. Given he had no presyncopal symptoms, concern for discharging the patient home and family also expresses concern. Will admit to the hospital service - Patient is noted to always have a slightly elevated troponin level, again likely secondary to his aortic stenosis. - Discussion was had with social sciences lecturer about patient's case and need for admission - Hospitalist, Dr. Garcia, consulted for admission. - [facility] ASSESSMENT AND PLAN: Diagnosis: syncope and collapse Plan: admit Past Med/Surg History Medical History Acute heart failure with preserved ejection fraction Aneurysm, thoracic aortic Aortic atherosclerosis Aortic stenosis, severe BPH with obstruction/lower urinary tract symptoms CAD (coronary artery disease) Cervical disc disease Chronic sinusitis Cognitive disorder Coronary artery calcification Depression with anxiety Dyslipidemia Glaucoma Hearing loss Hepatic steatosis History of central retinal vein occlusion Hypertension Iron deficiency Lower GI bleed Lumbar spinal stenosis Mitral regurgitation MVP (mitral valve prolapse) Osteoarthritis PAC (premature atrial contraction) PAF (paroxysmal atrial fibrillation) Sleep apnea Trigeminal neuralgia Vitamin D deficiency Surgical History H/O cataract extraction (2013) H/O colonoscopy History of cochlear implant (01/12/12) History of pilonidal cyst History of umbilical hernia repair S/P foot surgery, right (12/2010) S/P laser trabeculoplasty of eye (10/2014) S/P nasal endoscopy with nasal polypectomy (2011) S/P rotator cuff repair Family History Mother No pertinent family history Other Hypertension Denies family history of Ovarian cancer Prostate cancer Diabetes Myocardial infarction Breast cancer Colorectal cancer Cancer Social History Smoking Status: Never smoker Second Hand Exposure: No; Do You Dip or Chew Tobacco: No; Hx Alcohol Use: No Hx Substance Use: No Preferred Language: Azeri Communication Ability: Effective Visual Impairment: No Limitations Hearing Ability: Cochlear Implant Pyrotechnic Mixer Required: No Beliefs That Will Affect Care: None marital status: Current Living Situation: Spouse and Family current occupational status: retired How many Children do You have: 1 Feels Safe at Home: Yes Childhood Exposure to Second-Hand Smoke: Yes Diet: regular Diet Comment: regular caffeine: Yes (Soda 6 per day. Coffee 1 cup per day.) during the past year weight has: remained stable Dental Care, Regularly: No Physical Activity Frequency: Daily Seatbelt Use: sometimes Sunscreen Use: No Assistive Devices: Cane and Walker Allergies Allergies Allergy/AdvReac Type Severity Reaction Status Date / Time baclofen Allergy Unknown Unknown Verified 10/06/22 13:25 cyclobenzaprine Allergy Unknown Unknown Verified 10/06/22 13:25 [From Flexeril] doxazosin Allergy Unknown Unknown Verified 10/06/22 13:25 doxycycline Allergy Unknown Unknown Verified 10/06/22 13:25 duloxetine Allergy Unknown Unknown Verified 10/06/22 13:25 gabapentin Allergy Unknown Unknown Verified 10/06/22 13:25 lisinopril Allergy Unknown Unknown Verified 10/06/22 13:25 naproxen Allergy Unknown Unknown Verified 10/06/22 13:25 nortriptyline [From Pamelor] Allergy Unknown Unknown Verified 10/06/22 13:25 oxcarbazepine Allergy Unknown Unknown Verified 10/06/22 13:25 Penicillins Allergy Unknown Unknown Verified 10/06/22 13:25 Home Meds Home Medications Medication Instructions Recorded Confirmed amlodipine 5 mg tablet 5 mg PO QAM 10/07/22 10/07/22 Previous Rx's Medication Instructions Recorded acetaminophen 500 mg tablet 1,000 mg PO TID PRN fever or pain 11/18/18 #90 tabs potassium chloride 20 mEq 20 meq PO QAM #90 tabs 01/27/22 tablet,extended release tamsulosin 0.4 mg capsule 0.4 mg PO HS #90 caps 01/27/22 bupropion HCl 150 mg 24 hr tablet, 150 mg PO QAM #90 tabs 05/26/22 extended release (Wellbutrin XL) aspirin 81 mg tablet,delayed 81 mg PO DAILY #90 tabs 06/09/22 release paroxetine HCl 40 mg tablet 40 mg PO QAM #90 tabs 06/18/22 pantoprazole 40 mg tablet,delayed 40 mg PO DAILY #90 tabs 07/27/22 release Oxygen Home #1 ea 08/22/22 metoprolol succinate 25 mg 12.5 mg PO QAM #30 tabs 08/22/22 tablet,extended release 24 hr furosemide 40 mg tablet 40 mg PO QAM #30 tabs 09/02/22 loratadine 10 mg tablet (Claritin) 10 mg PO DAILY #90 tabs 09/14/22 Wheelchair (Manual) #1 ea 09/17/22 atorvastatin 80 mg tablet 80 mg PO HS #90 tabs 09/17/22 fluticasone propionate 50 2 spray intranasal DAILY #16 grams 09/29/22 mcg/actuation nasal spray,suspension (Flonase Allergy Relief) Results & Data (ED) Vital Signs Vital Signs - 24 hr 10/07/22 17:45 10/07/22 17:45 10/07/22 18:02 Temperature 36.8 C Temperature Source Temporal Artery Scan Pulse Rate 67 67 Pulse Rate from SpO2 Sensor Respiratory Rate 18 Blood Pressure 116/70 Blood Pressure Mean 85 Pulse Oximetry 95 94 Oxygen Delivery Method Room Air Room Air Sepsis Recent Fever Within 48 Hours No Sepsis New/Unexplained Change in Mental Status No Sepsis Action Taken by Nursing No Action Required 10/07/22 17:46 10/07/22 18:00 10/07/22 18:30 Temperature Temperature Source Pulse Rate 67 67 71 Pulse Rate from SpO2 Sensor 67 67 70 Respiratory Rate 22 24 22 Blood Pressure Blood Pressure Mean Pulse Oximetry 94 94 94 Oxygen Delivery Method Sepsis Recent Fever Within 48 Hours Sepsis New/Unexplained Change in Mental Status Sepsis Action Taken by Nursing 10/07/22 19:00 Temperature Temperature Source Pulse Rate 72 Pulse Rate from SpO2 Sensor 72 Respiratory Rate 13 Blood Pressure Blood Pressure Mean Pulse Oximetry 95 Oxygen Delivery Method Sepsis Recent Fever Within 48 Hours Sepsis New/Unexplained Change in Mental Status Sepsis Action Taken by Nursing Laboratory Data 10/07/22 18:14 10/07/22 18:14 Lab Results 10/07/22 10/07/22 10/07/22 Range/Units 18:14 18:14 18:14 WBC 6.17 (4.8-10.8) K/ul RBC 4.44 L (4.70-6.10) M/uL Hgb 13.8 L (14.0-18.0) g/dl Hct 40.7 L (42.0-52.0) % MCV 91.7 (80.0-100.0) fL MCH 31.1 (25.0-34.0) pg MCHC 33.9 (32.0-36.0) g/dL RDW Std Deviation 57.3 H (36.4-46.3) fL RDW Coeff of Herrera 17.2 H (11.5-14.5) % Plt Count 194 (130-400) K/uL MPV 9.8 (9.4-12.4) fL Immature Gran % (Auto) 0.3 % Neut % (Auto) 77.1 % Lymph % (Auto) 10.9 % [place] % (Auto) 8.8 % Eos % (Auto) 1.6 % Baso % (Auto) 1.3 % Neut # (Auto) 4.76 (1.40-6.50) K/uL Lymph # (Auto) 0.67 L (1.2-3.4) K/uL [place] # (Auto) 0.54 (0.11-0.59) K/uL Eos # (Auto) 0.10 (0-0.50) K/uL Baso # (Auto) 0.08 (0-0.2) K/uL Immature Gran # (Auto) 0.02 (0.01-0.20) K/uL PT 11.9 (9.0-12.0) Seconds INR 1.1 (0.9-1.1) Sodium 138 (136-145) mmol/L Potassium 4.0 (3.5-5.1) mmol/L Chloride 106 (98-107) mmol/L Carbon Dioxide 24 (21-32) mmol/L Anion Gap 8 (3-11) BUN 24 H (6-23) mg/dl Creatinine 1.35 (0.6-1.4) mg/dl Est Cr Clr Drug Dosing 50.7 ml/min Est GFR ( Amer) 59.5 ml/min Est GFR (Non-Af Amer) 51.4 ml/min BUN/Creatinine Ratio 17.8 (10-20) Glucose 99 (70-99(Fasting)) mg/dl Calcium 8.9 (8.6-10.3) mg/dl Magnesium 1.8 (1.7-2.4) mg/dl Total Bilirubin 0.9 (0.2-1.0) mg/dl AST 20 (13-39) U/L ALT 18 (7-52) U/L Alkaline Phosphatase 110 H (34-104) U/L Troponin I High Sens 30.2 H (0-20) pg/ml Total Protein 6.4 (6.0-8.3) gm/dl Albumin 3.7 (3.4-5.0) gm/dl Globulin 2.7 (2.5-4.0) gm/dl Albumin/Globulin Ratio 1.4 (0.9-2) TSH (0.300-4.500) uIu/ml Urine Color Urine Appearance (Clear) Urine pH (4.5-7.5) Ur Specific [place] (1.000-1.030) Urine Protein (Negative) Urine Glucose (UA) (Negative) Urine Ketones (Negative) Urine Blood (Negative) Urine Nitrite (Negative) Urine Bilirubin (Negative) Urine Urobilinogen (Negative) Ur Leukocyte Esterase (Negative) 10/07/22 10/07/22 Range/Units 18:34 19:00 WBC (4.8-10.8) K/ul RBC (4.70-6.10) M/uL Hgb (14.0-18.0) g/dl Hct (42.0-52.0) % MCV (80.0-100.0) fL MCH (25.0-34.0) pg MCHC (32.0-36.0) g/dL RDW Std Deviation (36.4-46.3) fL RDW Coeff of Herrera (11.5-14.5) % Plt Count (130-400) K/uL MPV (9.4-12.4) fL Immature Gran % (Auto) % Neut % (Auto) % Lymph % (Auto) % [place] % (Auto) % Eos % (Auto) % Baso % (Auto) % Neut # (Auto) (1.40-6.50) K/uL Lymph # (Auto) (1.2-3.4) K/uL [place] # (Auto) (0.11-0.59) K/uL Eos # (Auto) (0-0.50) K/uL Baso # (Auto) (0-0.2) K/uL Immature Gran # (Auto) (0.01-0.20) K/uL PT (9.0-12.0) Seconds INR (0.9-1.1) Sodium (136-145) mmol/L Potassium (3.5-5.1) mmol/L Chloride (98-107) mmol/L Carbon Dioxide (21-32) mmol/L Anion Gap (3-11) BUN (6-23) mg/dl Creatinine (0.6-1.4) mg/dl Est Cr Clr Drug Dosing ml/min Est GFR ( Amer) ml/min Est GFR (Non-Af Amer) ml/min BUN/Creatinine Ratio (10-20) Glucose (70-99(Fasting)) mg/dl Calcium (8.6-10.3) mg/dl Magnesium (1.7-2.4) mg/dl Total Bilirubin (0.2-1.0) mg/dl AST (13-39) U/L ALT (7-52) U/L Alkaline Phosphatase (34-104) U/L Troponin I High Sens (0-20) pg/ml Total Protein (6.0-8.3) gm/dl Albumin (3.4-5.0) gm/dl Globulin (2.5-4.0) gm/dl Albumin/Globulin Ratio (0.9-2) TSH 1.499 (0.300-4.500) uIu/ml Urine Color Yellow Urine Appearance Clear (Clear) Urine pH 5.0 (4.5-7.5) Ur Specific [place] 1.013 (1.000-1.030) Urine Protein Negative (Negative) Urine Glucose (UA) 1+ H (Negative) Urine Ketones Negative (Negative) Urine Blood Negative (Negative) Urine Nitrite Negative (Negative) Urine Bilirubin Negative (Negative) Urine Urobilinogen Negative (Negative) Ur Leukocyte Esterase Negative (Negative) Imaging Data Radiologist's Impression: Head CT 10/07/22 17:55 Exam(s): CT HEAD Without Contrast EXAM: CT Head Without Intravenous Contrast CLINICAL HISTORY: Reason for exam: syncope; on ASA. TECHNIQUE: Axial computed tomography images of the head/brain without intravenous contrast. CTDI is 37.78 mGy and DLP is 702.46 mGy-cm. Automated exposure control was utilized for the study. A dose lowering technique was utilized adhering to the principles of ALARA. COMPARISON: No relevant prior studies available. FINDINGS: No acute intracranial hemorrhage. No midline shift or mass effect. The territorial chin-white matter differentiation is maintained throughout. Age-related cerebral volume loss. Periventricular and subcortical white matter hypoattenuation, consistent with chronic microangiopathy. The visualized orbits appear grossly unremarkable. LEFT forehead scalp soft tissue swelling. Bilateral cochlear implants. The visualized paranasal sinuses and mastoid air cells are grossly clear. IMPRESSION: No acute intracranial hemorrhage, midline shift, or mass effect. LEFT forehead scalp soft tissue swelling. Bilateral cochlear implants. Electronically signed by: Jean Paul Baez MD 10/07/22 21:10 PM Discharge Plan Visit Data Chief Complaint: Syncope Stated Complaint: SYNCOPE ED Provider: Sirena Bradshaw Discharge Problem: Syncope and collapse Forms Stand Alone Forms: My [employer] Prescriptions Prescriptions: No Action tamsulosin 0.4 mg capsule 0.4 mg PO HS Qty: 90 1RF potassium chloride 20 mEq tablet extended release 20 meq PO QAM Qty: 90 1RF bupropion HCl [Wellbutrin XL] 150 mg tablet extended release 24 hr 150 mg PO QAM Qty: 90 3RF paroxetine HCl 40 mg tablet 40 mg PO QAM Qty: 90 1RF pantoprazole 40 mg tablet,delayed release (DR/EC) 40 mg PO DAILY Qty: 90 2RF (DME) Wheelchair (Manual) Device See Rx Instructions .Route Qty: 1 0RF Rx Instructions: Standard Wheelchair, use as directed. atorvastatin 80 mg tablet 80 mg PO HS Qty: 90 1RF fluticasone propionate [Flonase Allergy Relief] 50 mcg/actuation spray,suspension 2 spray intranasal DAILY Qty: 16 1RF Rx Instructions: administer into each nostril loratadine [Claritin] 10 mg tablet 10 mg PO DAILY Qty: 90 3RF aspirin 81 mg tablet,delayed release (DR/EC) 81 mg PO DAILY Qty: 90 3RF acetaminophen 500 mg tablet 1,000 mg PO TID PRN (Reason: fever or pain) Qty: 90 5RF (DME) Oxygen Home Liters Per Minute See Rx Instructions .ROUTE .MEDSUPPLY Qty: 1 0RF Rx Instructions: 6 liters oxygen blended into CPAP - use with sleep. metoprolol succinate 25 mg Tablet Extended Release 24 Hr 12.5 mg PO QAM Qty: 30 2RF Rx Instructions: for your heart furosemide 40 mg Tablet 40 mg PO QAM Qty: 30 0RF amlodipine 5 mg tablet 5 mg PO QAM Referrals Referrals: Nova Rousseau DO [Primary Care Provider] -
[2022-10-07 18:45] LABS: Albumin Globulin Ratio 1.4 (0.9-2); Albumin Level 3.7 gm/dl (3.4-5.0); BUN Creatinine Ratio 17.8 (10-20); Bilirubin,Total 0.9 mg/dl (0.2-1.0); Calcium 8.9 mg/dl (8.6-10.3); Creatinine Clr Calc Pharmacy 50.7 ml/min; Est GFR (African American) 59.5 ml/min; Est GFR (Non-African American) 51.4 ml/min; Globulin 2.7 gm/dl (2.5-4.0); Magnesium 1.8 mg/dl (1.7-2.4); Total Protein 6.4 gm/dl (6.0-8.3)
[2022-10-07 18:52] LABS: Troponin I High Sensitivity 30.2 pg/ml (0-20)
[2022-10-07 18:56] LABS: INR 1.1 (0.9-1.1); Prothrombin Time 11.9 Seconds (9.0-12.0)
[2022-10-07 19:00] LABS: Basophils # (auto) 0.08 K/uL (0-0.2); Basophils % (auto) 1.3 %; Eosinophils % (auto) 1.6 %; Hematocrit (blood only) 40.7 % (42.0-52.0); Hemoglobin 13.8 g/dl (14.0-18.0); Immature Granulocytes # (auto) 0.02 K/uL (0.01-0.20); Immature Granulocytes % (auto) 0.3 %; Lymphocytes # (auto) 0.67 K/uL (1.2-3.4); Lymphocytes % (auto) 10.9 %; Mean Corpuscular Hemoglobin 31.1 pg (25.0-34.0); Mean Corpuscular Hgb Conc 33.9 g/dL (32.0-36.0); Mean Corpuscular Volume 91.7 fL (80.0-100.0); Mean Platelet Volume 9.8 fL (9.4-12.4); Monocytes # (auto) 0.54 K/uL (0.11-0.59); Monocytes % (auto) 8.8 %; Neutrophils # (auto) 4.76 K/uL (1.40-6.50); Neutrophils % (auto) 77.1 %; Platelet Count 194 K/uL (130-400); RDW Coefficient of Variation 17.2 % (11.5-14.5); RDW Standard Deviation 57.3 fL (36.4-46.3); Red Blood Count 4.44 M/uL (4.70-6.10); White Blood Count 6.17 K/ul (4.8-10.8)
[2022-10-07 19:14] LABS: Appearance Urine Clear (Clear); Bilirubin Urine Negative (Negative); Blood Urine Negative (Negative); Color Urine Yellow; Glucose Urine UA 1+ (Negative); Ketones Urine Negative (Negative); Leukocyte Esterase Urine Negative (Negative); Nitrite Urine Negative (Negative); Protein Urine Negative (Negative); Specific Gravity Urine 1.013 (1.000-1.030); Urobilinogen Urine Negative (Negative)
--- NOTE | 2022-10-07 21:11 | CT Scan Report ---
Exam(s): CT HEAD Without Contrast EXAM: CT Head Without Intravenous Contrast CLINICAL HISTORY: Reason for exam: syncope; on ASA. TECHNIQUE: Axial computed tomography images of the head/brain without intravenous contrast. CTDI is 37.78 mGy and DLP is 702.46 mGy-cm. Automated exposure control was utilized for the study. A dose lowering technique was utilized adhering to the principles of ALARA. COMPARISON: No relevant prior studies available. FINDINGS: No acute intracranial hemorrhage. No midline shift or mass effect. The territorial chin-white matter differentiation is maintained throughout. Age-related cerebral volume loss. Periventricular and subcortical white matter hypoattenuation, consistent with chronic microangiopathy. The visualized orbits appear grossly unremarkable. LEFT forehead scalp soft tissue swelling. Bilateral cochlear implants. The visualized paranasal sinuses and mastoid air cells are grossly clear. IMPRESSION: No acute intracranial hemorrhage, midline shift, or mass effect. LEFT forehead scalp soft tissue swelling. Bilateral cochlear implants. Electronically signed by: Jean Paul Baez MD 10/07/22 21:10 PM
--- NOTE | 2022-10-07 22:46 | History & Physical Report ---
Date of Service October 07, 2022 Assessment & Plan (1) Syncope and collapse: (2) Hypotension: (3) Chronic diastolic CHF (congestive heart failure): (4) Trigeminal neuralgia: (5) Sleep apnea: (6) PAF (paroxysmal atrial fibrillation): (7) MVP (mitral valve prolapse): (8) Mitral regurgitation: (9) Hearing loss: (10) BPH with obstruction/lower urinary tract symptoms: (11) Dyslipidemia: (12) Aneurysm, thoracic aortic: (13) Aortic stenosis, severe: Plan Yimi Snyder is a 76 year old male with severe aortic stenosis, CHF, MVP, thoracic aortic aneurysm, sleep apnea, hearing loss (with cochlear implants) and trigeminal neuralgia. He presented to the ED after an episode of syncope this afternoon. Syncope | Severe Aortic Stenosis -CT head without intracranial hemorrhage. Soft tissue swelling of forehead -Etiology most likely his severe aortic stenosis, patient also had slowly progressing hypotension -Patient ultimately needs TAVR due to severe stenosis and worsening symptoms -Evaluation with Amanda in October for TAVR -Admit patient for observation with telemetry -Will consult cardiology (Dr. Paige), appreciate recommendations Acute on chronic heart failure with preserved EF -Patient was taking Lasix 40mg daily at home -Dry weight 198lb per most recent heart failure clinic note -Chest XR unremarkable -Appears euvolemic, ordered BNP. -Plan to hold Lasix for now, will repeat BMP in a.m. Elevated Troponin -High sensitivity Troponin of 30.2 in ED -EKG sinus rhythm, first degree AV block -No chest pain -Low suspicion for ACS, will trend troponin in a.m. Hypertension -BP more hypotensive as of recent, BP 90/60 yesterday in office -Continue home amlodipine, metoprolol Paroxysmal Atrial Fibrillation -Not currently on anticoagulation due to recurrent nose bleeds, prior GI bleed -Rate controlled on beta sid CAD -Continue home statin, will hold aspirin for now MARLON -Continue CPAP at night Depression/Anxiety -Continue home Wellbutrin, Paroxetine Hx of GI Bleed -Continue home pantoprazole Ascending Aortic Dilation -Stable over past year per cardiology notes BPH -Continue home Tamsulosin Diet: Heart healthy VTE Prophylaxis: SCDs Dispo: Observation, Med Tele Code Status: Full code History of Present Illness Chief Complaint: Syncope Primary Care Provider: Nova Rousseau DO Yimi Snyder is a 76 year old male with severe aortic stenosis, CHF, MVP, thoracic aortic aneurysm, sleep apnea, hearing loss (with cochlear implants) and trigeminal neuralgia. He presented to the Ed after an episode of syncope this afternoon. Mr. Snyder states that he was walking the length of a hallway in his home to open a package on the front porch, when he got to the package he bent down slightly to pick it up before changing his mind and starting to walk back down this hallway at which time he fainted. He has had several syncopal episodes in the past few months and notes that his dyspnea on exertion is worsening. He currently has an appointment in [place] to be evaluated for TAVR in the beginning of October, but is concerned that these episodes will continue until he is able to have the procedure. He also notes dizziness when moving from sitting to standing, but is typically able to manage this by moving slowly and using his cane. He currently denies any headache, fever, body aches, chills, changes in bowel/bladder habits. He states that he has been eating and drinking per usual (drinks about 3-4 16oz bottles of diet pepsi daily) and has not had a significant change in urine output. He notes that his BP "runs low" normally, but it was lower yesterday at his heart failure clinic appointment. Allergies Allergy/AdvReac Type Severity Reaction Status Date / Time baclofen Allergy Unknown Unknown Verified 10/06/22 13:25 cyclobenzaprine Allergy Unknown Unknown Verified 10/06/22 13:25 [From Flexeril] doxazosin Allergy Unknown Unknown Verified 10/06/22 13:25 doxycycline Allergy Unknown Unknown Verified 10/06/22 13:25 duloxetine Allergy Unknown Unknown Verified 10/06/22 13:25 gabapentin Allergy Unknown Unknown Verified 10/06/22 13:25 lisinopril Allergy Unknown Unknown Verified 10/06/22 13:25 naproxen Allergy Unknown Unknown Verified 10/06/22 13:25 nortriptyline [From Pamelor] Allergy Unknown Unknown Verified 10/06/22 13:25 oxcarbazepine Allergy Unknown Unknown Verified 10/06/22 13:25 Penicillins Allergy Unknown Unknown Verified 10/06/22 13:25 Home Medications Medication Instructions Recorded Confirmed Type acetaminophen 500 mg tablet 1,000 mg PO TID PRN fever or pain 11/18/18 10/07/22 Rx #90 tabs potassium chloride 20 mEq 20 meq PO QAM #90 tabs 01/27/22 10/07/22 Rx tablet,extended release tamsulosin 0.4 mg capsule 0.4 mg PO HS #90 caps 01/27/22 10/07/22 Rx bupropion HCl 150 mg 24 hr tablet, 150 mg PO QAM #90 tabs 05/26/22 10/07/22 Rx extended release (Wellbutrin XL) aspirin 81 mg tablet,delayed 81 mg PO DAILY #90 tabs 06/09/22 10/07/22 Rx release paroxetine HCl 40 mg tablet 40 mg PO QAM #90 tabs 06/18/22 10/07/22 Rx pantoprazole 40 mg tablet,delayed 40 mg PO DAILY #90 tabs 07/27/22 10/07/22 Rx release Oxygen Home #1 ea 08/22/22 10/07/22 Rx metoprolol succinate 25 mg 12.5 mg PO QAM #30 tabs 08/22/22 10/07/22 Rx tablet,extended release 24 hr furosemide 40 mg tablet 40 mg PO QAM #30 tabs 09/02/22 10/07/22 Rx loratadine 10 mg tablet (Claritin) 10 mg PO DAILY #90 tabs 09/14/22 10/07/22 Rx Wheelchair (Manual) #1 ea 09/17/22 10/07/22 Rx atorvastatin 80 mg tablet 80 mg PO HS #90 tabs 09/17/22 10/07/22 Rx fluticasone propionate 50 2 spray intranasal DAILY #16 grams 09/29/22 10/07/22 Rx mcg/actuation nasal spray,suspension (Flonase Allergy Relief) amlodipine 5 mg tablet 5 mg PO QAM 10/07/22 10/07/22 History Past Med/Surg History Medical History Acute heart failure with preserved ejection fraction Aneurysm, thoracic aortic Aortic atherosclerosis Aortic stenosis, severe BPH with obstruction/lower urinary tract symptoms CAD (coronary artery disease) Cervical disc disease Chronic sinusitis Cognitive disorder Coronary artery calcification Depression with anxiety Dyslipidemia Glaucoma Hearing loss Hepatic steatosis History of central retinal vein occlusion Hypertension Iron deficiency Lower GI bleed Lumbar spinal stenosis Mitral regurgitation MVP (mitral valve prolapse) Osteoarthritis PAC (premature atrial contraction) PAF (paroxysmal atrial fibrillation) Sleep apnea Trigeminal neuralgia Vitamin D deficiency Surgical History H/O cataract extraction (2013) H/O colonoscopy History of cochlear implant (01/12/12) History of pilonidal cyst History of umbilical hernia repair S/P foot surgery, right (12/2010) S/P laser trabeculoplasty of eye (10/2014) S/P nasal endoscopy with nasal polypectomy (2011) S/P rotator cuff repair Family History Mother No pertinent family history Other Hypertension Denies family history of Ovarian cancer Prostate cancer Diabetes Myocardial infarction Breast cancer Colorectal cancer Cancer Social History Smoking Status: Never smoker Second Hand Exposure: No; Do You Dip or Chew Tobacco: No; Hx Alcohol Use: No Hx Substance Use: No Preferred Language: Mongolian Communication Ability: Effective Visual Impairment: No Limitations Hearing Ability: Cochlear Implant Corn Shredder Required: No Beliefs That Will Affect Care: None marital status: Current Living Situation: Spouse and Family current occupational status: retired How many Children do You have: 1 Other Information That Helps Us Care for You: No Feels Safe at Home: Yes Safety Concerns: Feels Safe At This Time Childhood Exposure to Second-Hand Smoke: Yes Diet: regular Diet Comment: regular caffeine: Yes (Soda 6 per day. Coffee 1 cup per day.) during the past year weight has: remained stable Dental Care, Regularly: No Physical Activity Frequency: Daily Seatbelt Use: sometimes Sunscreen Use: No Assistive Devices: CPAP, Glasses and Other Assistive Devices Comment: Bilateral cochlear implants Review of Systems Review of Systems: As per HPI Physical Exam Constitutional: WD/WN, vitals as above Eyes: PERRL, conjunctivae normal, anicteric sclerae ENMT: Hematoma of forehead above right brow. External ears and nose normal, moist mucous membranes. Neck: trachea midline, no thyromegaly Respiratory: normal respiratory effort; no respiratory distress Anterior lung vazquez clear to auscultation. Cardiovascular: Rate/Rhythm: regular rate and regular rhythm Extremities: no edema Systolic ejection murmur. Gastrointestinal (Abdomen): normal bowel sounds, soft, nontender, no hepatosplenomegaly Musculoskeletal: Extremities: extremities normal to inspection Neurologic: normal touch/pain/proprioception, moves all extremities and awake Psychiatric: A+Ox3, euthymic affect Results & Data Results & Data Vital Signs (Past 12 Hours) Vital Signs Temp Pulse Resp BP Pulse Ox O2 Del Method 10/07/22 22:01 87 10/07/22 19:00 72 13 95 10/07/22 18:30 71 22 94 10/07/22 18:00 67 24 94 10/07/22 17:46 67 22 94 10/07/22 18:02 94 Room Air 10/07/22 17:45 67 10/07/22 17:45 36.8 C 67 18 116/70 95 Room Air Supervising Physician Co-Signing Physician Notes Patient seen and examined, chart reviewed, case discussed with Dr. Ca and I agree with the assessment and plan as above. In brief, patient is a 76yo male with known severe presently undergoing workup for TAVR, prior syncopal episodes presenting with syncope Patient denies chest pain or palpitations at present. No additional complaints On exam he is resting comfortably, NAD Skin- warm, well perfused HEENT -NC/AT, PERRL, MMM, no JVD Heart - +S1/S2, regular, 4/6 LARISSA across precordium to bilateral carotids Lungs - CTA, no rales/rhonchi/wheezes Abd - Soft, NT/ND Ext - warm, well perfused, no clubbing/cyanosis or edema Labs and images reviewed Trop 30.2 --> 30. Chronically elevated BNP elevated at 1185 Assessment/Plan Syncope in setting of severe . Patient follows with Cardiology and is in the process of being worked up for TAVR. Syncope is anticipated consequence of patient's underlying valvular disease. Presently without complaint. -Trend troponin -Telemetry monitoring -Cardiology consultation -Will resume Lasix given elevated BNP result -Remainder of plan as above Resident Activity Tracking Resident Involvement: Resident Care Provided Care Provided: Adult [facility]
[2022-10-07] MEDS ORDERED: NITROGLYCERIN SL 0.4 MG/TAB TAB SL PRN (22:50)
--- NOTE | 2022-10-07 23:05 | XRay Report ---
SINGLE VIEW CHEST CLINICAL HISTORY: Syncope FINDINGS: An AP, portable, upright chest radiograph is compared to study dated 08/31/2022. Correlation is made with chest CT dated 11/15/2017. The heart is enlarged noting atherosclerotic calcification of the thoracic aorta. The pulmonary vasculature is noncongested. Chronic interstitial thickening is si milar to previous. There is mild bibasilar scarring/atelectasis. The lungs and pleural spaces are oth erwise clear. No pneumothorax is seen. The skeletal structures are osteopenic. The bony thorax is ghada ssly intact. Arthritic change is seen in the shoulders. Superior subluxation of the humeral heads sug gest chronic bilateral rotator cuff injury. IMPRESSION: Cardiomegaly with no active disease in the chest. ACT 112: Negative or not required by law. Electronically signed by: Kimo Mora M.D. 10/07/2022 11:04 PM
[2022-10-07] MEDS ORDERED: ACETAMINOPHEN 325 MG TAB PO STA (23:13)
[2022-10-07] MEDS ORDERED: ACETAMINOPHEN 325 MG TAB ONE (23:21)
--- NOTE | 2022-10-08 01:11 | Billing Data ---
Date of Service October 08, 2022 Coding Level of Care Code 72333 INT INP/OBS CARE
[2022-10-08 07:24] LABS: Basophils # (auto) 0.07 K/uL (0-0.2); Basophils % (auto) 1.5 %; Eosinophils % (auto) 2.1 %; Hematocrit (blood only) 39.1 % (42.0-52.0); Hemoglobin 12.5 g/dl (14.0-18.0); Immature Granulocytes # (auto) 0.02 K/uL (0.01-0.20); Immature Granulocytes % (auto) 0.4 %; Lymphocytes # (auto) 1.07 K/uL (1.2-3.4); Lymphocytes % (auto) 22.4 %; Mean Corpuscular Hemoglobin 29.4 pg (25.0-34.0); Mean Platelet Volume 9.7 fL (9.4-12.4); Monocytes # (auto) 0.45 K/uL (0.11-0.59); Monocytes % (auto) 9.4 %; Neutrophils # (auto) 3.07 K/uL (1.40-6.50); Neutrophils % (auto) 64.2 %; Platelet Count 167 K/uL (130-400); RDW Standard Deviation 57.1 fL (36.4-46.3); Red Blood Count 4.25 M/uL (4.70-6.10); White Blood Count 4.78 K/ul (4.8-10.8)
[2022-10-08 07:42] LABS: BUN Creatinine Ratio 16.8 (10-20); Calcium 8.9 mg/dl (8.6-10.3); Creatinine Clr Calc Pharmacy 48.7 ml/min; Est GFR (African American) 58.5 ml/min; Est GFR (Non-African American) 50.4 ml/min; Potassium 3.5 mmol/L (3.5-5.1)
[2022-10-08] MEDS ORDERED: PARoxetine HCL 20 MG TAB PO SCH (09:00)
[2022-10-08] MEDS ORDERED: PANTOprazole 40 MG TAB PO SCH (09:00)
[2022-10-08] MEDS ORDERED: FUROSEMIDE 40 MG TAB PO SCH (09:00)
[2022-10-08] MEDS ORDERED: LORATADINE 10 MG TAB PO SCH (09:00)
[2022-10-08] MEDS ORDERED: METOPROLOL SUCC 25MG EXT REL TAB PO SCH (09:00)
[2022-10-08] MEDS ORDERED: POTASSIUM CHLORIDE CRTAB 20 MEQ TABCR PO SCH (09:00)
[2022-10-08] MEDS ORDERED: buPROPion XL 150 MG TABCR PO SCH (09:00)
[2022-10-08] MEDS ORDERED: amLODIPine BESYLATE 5 MG TAB PO SCH (09:00)
--- NOTE | 2022-10-08 09:46 | Cardiology Progress Note ---
Date of Service October 08, 2022 Assessment & Plan (1) Syncope and collapse: Plan: -likely secondary to his severe aortic stenosis. -he is scheduled for his TAVR evaluation at [facility] on October 27. (2) Aortic stenosis, severe: Plan: -severe, symptomatic aortic stenosis. -TAVR evaluation on October 27. (3) CAD (coronary artery disease): Plan: -80% proximal D1, 80% proximal LCx. -revascularization options to be determined by TAVR team. (4) Mitral regurgitation: Plan: -moderate mitral regurgitation with posterior leaflet prolapse. -need for intervention to be determined by TAVR team. (5) PAF (paroxysmal atrial fibrillation): Plan: -remains in sinus rhythm at this time. -not on anticoagulation due to recurrent epistaxis and GI bleeding. -was to undergo an evaluation for possible watch man procedure. Admission and Anticipated Discharge Date Admission Date: October 07, 2022 Subjective Patient is resting comfortably in bed without complaints chest pain or dyspnea. We reviewed his syncopal event which prompted hospital admission. Physical Exam Physical Exam: In general is well-developed well-nourished white male in no acute distress. HEENT exam notable for bilateral cochlear implants. Neck is supple with mildly delayed and prolonged carotid upstrokes. No obvious transmitted murmur or bruit. No jugular venous distention. Cardiovascular exam reveals a regular rhythm with distant heart sounds. A 2/6 crescendo decrescendo systolic murmur heard loudest at the base. A 2/6 holosystolic systolic murmurs heard at the apex. No S3. Lungs are clear without rales, rhonchi or wheezes. Abdomen is obese without bruits. Extremities reveal intact radial artery pulses bilaterally. There is no peripheral edema. Results & Data Vital Signs (Past 12 Hours) Vital Signs Temp Pulse Pulse Resp BP BP Pulse Ox 10/08/22 08:32 36.5 C 65 18 98/70 L 97 10/08/22 03:00 36.6 C 81 16 143/74 H 95 10/08/22 00:30 36.5 C 89 18 106/70 96 10/08/22 00:00 85 17 93 10/07/22 23:31 91 H 17 96 10/07/22 23:31 114/78 10/07/22 23:30 84 18 94 05/17/23 23:12 125/83 10/07/22 23:12 82 28 H 91 10/07/22 23:00 83 17 10/07/22 22:30 85 19 10/07/22 22:00 78 18 10/07/22 22:01 87 O2 Del Method O2 Flow Rate 10/08/22 08:32 Nasal Cannula 2.0 10/08/22 03:00 Room Air 10/08/22 00:30 Room Air 10/08/22 00:00 10/07/22 23:31 10/07/22 23:31 10/07/22 23:30 10/07/22 23:12 10/07/22 23:12 10/07/22 23:00 10/07/22 22:30 10/07/22 22:00 10/07/22 22:01 Diagnostic Findings quality assurance monitor body is benign. PG Care Time/CCT Total # of Minutes Spent Total Time Spent with Patient: Total time spent is greater than 50% in coordination of care (as documented) at patient's floor/unit and/or counseling patient: Coding Level of Care Code 36780 SUB INP/OBS CARE 3/50MIN Diagnoses Syncope and collapse R55 Aortic stenosis, severe I35.0 CAD (coronary artery disease) I25.10 Mitral regurgitation I34.0 PAF (paroxysmal atrial fibrillation) I48.0
--- NOTE | 2022-10-08 10:16 | Electrocardiogram Report ---
Test Reason : Blood Pressure : / mmHG Vent. Rate : 068 BPM Atrial Rate : 068 BPM P-R Int : 224 ms QRS Dur : 104 ms QT Int : 434 ms P-R-T Axes : 061 064 007 degrees QTc Int : 461 ms Sinus rhythm with 1st degree A-V block Prolonged QT Abnormal ECG When compared with ECG of 20-AUG-2022 12:50, Premature atrial complexes are no longer Present Confirmed by Arley Rodriguez ([id number]) on 10/08/2022 10:16:37 AM Referred By: REFERRED SELF Confirmed By:Geraldo Rodriguez
--- NOTE | 2022-10-08 13:22 | Discharge Summary ---
Date of Service October 08, 2022 Admission HPI Per Admitting Provider Yimi Snyder is a 76 year old male with severe aortic stenosis, CHF, MVP, thoracic aortic aneurysm, sleep apnea, hearing loss (with cochlear implants) and trigeminal neuralgia. He presented to the Ed after an episode of syncope this afternoon. Mr. Snyder states that he was walking the length of a hallway in his home to open a package on the front porch, when he got to the package he bent down slightly to pick it up before changing his mind and starting to walk back down this hallway at which time he fainted. He has had several syncopal episodes in the past few months and notes that his dyspnea on exertion is worsening. He currently has an appointment in [place] to be evaluated for TAVR in the beginning of October, but is concerned that these episodes will continue until he is able to have the procedure. He also notes dizziness when moving from sitting to standing, but is typically able to manage this by moving slowly and using his cane. He currently denies any headache, fever, body aches, chills, changes in bow el/bladder habits. He states that he has been eating and drinking per usual (drinks about 3-4 16oz bottles of diet pepsi daily) and has not had a significant change in urine output. He notes that his BP "runs low" normally, but it was lower yesterday at his heart failure clinic appointment. Admission Exam Per Admitting Provider Constitutional: WD/WN, vitals as above Eyes: PERRL, conjunctivae normal, anicteric sclerae ENMT: Hematoma of forehead above right brow. External ears and nose normal, moist mucous membranes. Neck: trachea midline, no thyromegaly Respiratory: normal respiratory effort; no respiratory distress Anterior lung vazquez clear to auscultation. Cardiovascular: Rate/Rhythm: regular rate and regular rhythm Extremities: no edema Systolic ejection murmur. Gastrointestinal (Abdomen): normal bowel sounds, soft, nontender, no hepatosplenomegaly Musculoskeletal: Extremities: extremities normal to inspection Neurologic: normal touch/pain/proprioception, moves all extremities and awake Psychiatric: A+Ox3, euthymic affect Principal Diagnosis Syncope Discharge Exam Constitutional Well developed, well nourished Eyes PERRLA Respiratory Normal respiratory effort Cardiovascular Regular rate and rhythm, III/ holosystolic murmur radiating to carotids, no edema Musculoskeletal Normal range of motion, no pain or tenderness in extremities Skin 1.5 cm x 1 cm mildly erythematous facial laceration above R orbit, moderate erythema and swelling at the tip of nose Neurologic Awake and alert, coordination intact Psychiatric A&O x 3, euthymic affect Discharge Data Allergies Allergy/AdvReac Type Severity Reaction Status Date / Time baclofen Allergy Unknown Unknown Verified 10/06/22 13:25 cyclobenzaprine Allergy Unknown Unknown Verified 10/06/22 13:25 [From Flexeril] doxazosin Allergy Unknown Unknown Verified 10/06/22 13:25 doxycycline Allergy Unknown Unknown Verified 10/06/22 13:25 duloxetine Allergy Unknown Unknown Verified 10/06/22 13:25 gabapentin Allergy Unknown Unknown Verified 10/06/22 13:25 lisinopril Allergy Unknown Unknown Verified 10/06/22 13:25 naproxen Allergy Unknown Unknown Verified 10/06/22 13:25 nortriptyline [From Pamelor] Allergy Unknown Unknown Verified 10/06/22 13:25 oxcarbazepine Allergy Unknown Unknown Verified 10/06/22 13:25 Penicillins Allergy Unknown Unknown Verified 10/06/22 13:25 Consultations 10/07/22 21:57 ED Decision to Admit Stat 10/07/22 22:50 Consult Cardiology Routine Ordered Studies 10/07/22 17:55 CT head/brain wo con Stat FINDINGS: No acute intracranial hemorrhage. No midline shift or mass effect. The territorial chin-white matter differentiation is maintained throughout. Age-related cerebral volume loss. Periventricular and subcortical white matter hypoattenuation, consistent with chronic microangiopathy. The visualized orbits appear grossly unremarkable. LEFT forehead scalp soft tissue swelling. Bilateral cochlear implants. The visualized paranasal sinuses and mastoid air cells are grossly clear. IMPRESSION: No acute intracranial hemorrhage, midline shift, or mass effect. LEFT forehead scalp soft tissue swelling. Bilateral cochlear implants. 10/07/22 17:55 Chest X-ray Single View IMPRESSION: Cardiomegaly with no active disease in the chest. Hospital Course (1) Syncope and collapse: -likely secondary to his severe aortic stenosis. -he is scheduled for his TAVR evaluation at [facility] on October 27. (2) Aortic stenosis, severe: -severe, symptomatic aortic stenosis. -TAVR evaluation on October 27. (3) CAD (coronary artery disease): -80% proximal D1, 80% proximal LCx. -revascularization options to be determined by TAVR team. (4) Mitral regurgitation: -moderate mitral regurgitation with posterior leaflet prolapse. -need for intervention to be determined by TAVR team. (5) PAF (paroxysmal atrial fibrillation): -remains in sinus rhythm at this time. -not on anticoagulation due to recurrent epistaxis and GI bleeding. -was to undergo an evaluation for possible watch man procedure. (6) Hypertension: -holding home antihypertensives due to hypotension during hospitalization Total Time Total Time Spent Total Time Spent (In Minutes): Please see attending attestation Discharge Plan Discharge Items Patient Disposition: Home - Self-Care Reason For Visit: SYNCOPE Activity: As commented below Activity Comment: Resume activity as tolerated and as recommended by your rn x ray Non-emergency contact: Primary Care Provider Call non-emergency contact if: your symptoms worsen Follow-up/Referrals: Nova Rousseau DO [Primary Care Provider] - Diet: Regular Stand-Alone Forms: [facility], Smoking Cessation Medications and DC Order Prescriptions: No Action tamsulosin 0.4 mg capsule 0.4 mg PO HS Qty: 90 1RF bupropion HCl [Wellbutrin XL] 150 mg tablet extended release 24 hr 150 mg PO QAM Qty: 90 3RF paroxetine HCl 40 mg tablet 40 mg PO QAM Qty: 90 1RF pantoprazole 40 mg tablet,delayed release (DR/EC) 40 mg PO DAILY Qty: 90 2RF (DME) Wheelchair (Manual) Device See Rx Instructions .Route Qty: 1 0RF Rx Instructions: Standard Wheelchair, use as directed. atorvastatin 80 mg tablet 80 mg PO HS Qty: 90 1RF fluticasone propionate [Flonase Allergy Relief] 50 mcg/actuation spray,suspension 2 spray intranasal DAILY Qty: 16 1RF Rx Instructions: administer into each nostril potassium chloride 20 mEq tablet extended release 20 meq PO QAM Qty: 90 1RF loratadine [Claritin] 10 mg tablet 10 mg PO DAILY Qty: 90 3RF aspirin 81 mg tablet,delayed release (DR/EC) 81 mg PO DAILY Qty: 90 3RF acetaminophen 500 mg tablet 1,000 mg PO TID PRN (Reason: fever or pain) Qty: 90 5RF (DME) Oxygen Home Liters Per Minute See Rx Instructions .ROUTE .MEDSUPPLY Qty: 1 0RF Rx Instructions: 6 liters oxygen blended into CPAP - use with sleep. metoprolol succinate 25 mg Tablet Extended Release 24 Hr 12.5 mg PO QAM Qty: 30 2RF Rx Instructions: for your heart furosemide 40 mg Tablet 40 mg PO QAM Qty: 30 0RF amlodipine 5 mg tablet 5 mg PO QAM Admission Data Admit Date/Time: 10/07/22 22:51 Attending Provider: Junior Beyer Admit Provider: Taniya Ca Primary Care Provider: Nova Rousseau Other Providers: Tiesha Garcia ; Toñito Paige ; Jet Ap[facility] Supervising Physician Co-Signing Physician Notes Attending attestation Pt seen and examined in concert with Dr. Cain, [facility]. Dr. Romero. In agreement with the documented findings as noted in the resident documentation with any exceptions or additions as noted here. No recurrence of symptoms and feeling at baseline presently. On examination, S1/S2 nl RRR 3/6SEM radiating to carotids. CTAB. Abd NT/ND BS+ve Syncope and collapse in the setting of severe - cardiology consult - TAVR eval in early October, precautions reviewed re: activity, worsening/changing sx. Resume furosemide 40mg h/o coronary artery disease - continue statin therapy, metoprolol Hypotension in the setting of h/o HTN - holding antihypertensives at this time as likely contributed to episode with improvement in BP following. Consider restart based on clinical presentation at follow up. Atrial fibrillation, paroxysmal - no AC 2/2 bleeding issues, counseling per cardiology Else see resident documentation as noted. Total attending physician time spent with this patient's care on the day of discharge: 40 minutes. Laboratory Data Na 140 mmol/L (136-145) 10/08/22 K 3.5 mmol/L (3.5-5.1) 10/08/22 Cl 107 mmol/L (98-107) 10/08/22 CO2 28 mmol/L (21-32) 10/08/22 Anion Gap 5 (3-11) 10/08/22 BUN 23 mg/dl (6-23) 10/08/22 Creatinine 1.37 mg/dl (0.6-1.4) 10/08/22 Est GFR ( Amer) 58.5 ml/min 10/08/22 Est GFR (Non-Af Amer) 50.4 ml/min 10/08/22 BUN/Creatinine Ratio 16.8 (10-20) 10/08/22 Glu 117 mg/dl (70-99(Fasting)) H 10/08/22 Hemoglobin A1c 5.5 % (4.5-5.6) 12/05/20 Ca 8.9 mg/dl (8.6-10.3) 10/08/22 Total Bilirubin 0.9 mg/dl (0.2-1.0) 10/07/22 AST 20 U/L (13-39) 10/07/22 ALT 18 U/L (7-52) 10/07/22 Alkaline Phosphatase 110 U/L (34-104) H 10/07/22 TP 6.4 gm/dl (6.0-8.3) 10/07/22 Albumin 3.7 gm/dl (3.4-5.0) 10/07/22 Globulin 2.7 gm/dl (2.5-4.0) 10/07/22 Triglycerides Level 61 mg/dl (0-150) 06/09/22 Cholesterol 153 mg/dl (0-200) 06/09/22 LDL Cholesterol, Calc 86 mg/dl 06/09/22 HDL Cholesterol 55 mg/dl 06/09/22 Cholesterol/HDL Ratio 2.8 (0-5) 06/09/22 CBC w Diff Results Results CBC w Diff Results: RBC 4.25 M/uL (4.70-6.10) L 10/08/22 WBC 4.78 K/ul (4.8-10.8) L 10/08/22 Hgb 12.5 g/dl (14.0-18.0) L 10/08/22 Hct 39.1 % (42.0-52.0) L 10/08/22 MCV 92.0 fL (80.0-100.0) 10/08/22 MCH 29.4 pg (25.0-34.0) 10/08/22 MCHC 32.0 g/dL (32.0-36.0) 10/08/22 RDW Standard Deviation 57.1 fL (36.4-46.3) H 10/08/22 RDW Coefficient of Variation 17.0 % (11.5-14.5) H 10/08/22 Plt Count 167 K/uL (130-400) 10/08/22 MPV 9.7 fL (9.4-12.4) 10/08/22 Neutrophils (%) (Auto) 64.2 % 10/08/22 Lymphocytes (%) (Auto) 22.4 % 10/08/22 Monocytes # (Auto) 0.45 K/uL (0.11-0.59) 10/08/22 Eosinophils # (Auto) 0.10 K/uL (0-0.50) 10/08/22 Immature Granulocyte % (Auto) 0.4 % 10/08/22 Neutrophils # (Auto) 3.07 K/uL (1.40-6.50) 10/08/22 Lymphocytes # (Auto) 1.07 K/uL (1.2-3.4) L 10/08/22 Monocytes # (Auto) 0.45 K/uL (0.11-0.59) 10/08/22 Eosinophils # (Auto) 0.10 K/uL (0-0.50) 10/08/22 Basophils # (Auto) 0.07 K/uL (0-0.2) 10/08/22 Immature Granulocyte # (Auto) 0.02 K/uL (0.01-0.20) 3
[2022-10-08] MEDS ORDERED: TAMSULOSIN HCL 0.4 MG CAP PO SCH (21:00)
[2022-10-08] MEDS ORDERED: ATORVASTATIN 40 MG TAB PO SCH (21:00)
== END 2022-10-08 18:05 | disposition home or self-care (01) ==
LOC: 2S 17:36 → ED 17:36 → SUATTDRO 22:51 → 2S 10-08 00:10

== ENCOUNTER 2022-11-09 20:56 | Inpatient (IN) ==
--- NOTE | 2022-11-09 21:28 | Emergency Department Note ---
History of Present Illness General Chief complaint: Shortness of Breath/Dyspnea Time Seen by Provider: 11/09/22 21:08 History of Present Illness 76-year-old male presents emergency department complaint of shortness of breath that is been ongoing for the past few weeks. Patient states that he gets pain in the lower part of his chest to he is reportedly going to have cardiac surgery at the end of the month at [place]. Patient states that he has had increased shortness of breath. Patient does wear oxygen at home. Patient has no complaints of nausea vomiting or specific abdominal pain. There are no other mitigating or alleviating factors Home Medications Medication Instructions Recorded Confirmed Type acetaminophen 500 mg tablet 1,000 mg PO TID PRN fever or pain 11/18/18 10/29/22 Rx #90 tabs aspirin 81 mg tablet,delayed 81 mg PO DAILY #90 tabs 06/09/22 10/29/22 Rx release metoprolol succinate 25 mg 12.5 mg PO QAM #30 tabs 08/22/22 10/29/22 Rx tablet,extended release 24 hr Wheelchair (Manual) #1 ea 09/17/22 10/29/22 Rx amlodipine 5 mg tablet 5 mg PO QAM 10/07/22 10/13/22 History Oxygen Home #1 ea 10/12/22 10/29/22 Rx furosemide 20 mg tablet (Lasix) 20 mg PO DAILY #30 tabs 10/13/22 10/29/22 Rx atorvastatin 80 mg tablet 80 mg PO HS #90 tabs 11/05/22 Rx bupropion HCl 150 mg 24 hr tablet, 150 mg PO QAM #90 tabs 11/05/22 Rx extended release (Wellbutrin XL) fluticasone propionate 50 2 spray intranasal DAILY #48 grams 11/05/22 Rx mcg/actuation nasal spray,suspension (Flonase Allergy Relief) pantoprazole 40 mg tablet,delayed 40 mg PO DAILY #90 tabs 11/05/22 Rx release paroxetine HCl 40 mg tablet 40 mg PO QAM #90 tabs 11/05/22 Rx potassium chloride 20 mEq 20 meq PO QAM #90 tabs 11/05/22 Rx tablet,extended release tamsulosin 0.4 mg capsule 0.4 mg PO HS #90 caps 11/05/22 Rx Allergies Allergy/AdvReac Type Severity Reaction Status Date / Time baclofen Allergy Unknown Unknown Verified 10/29/22 11:23 cyclobenzaprine Allergy Unknown Unknown Verified 10/29/22 11:23 [From Flexeril] doxazosin Allergy Unknown Unknown Verified 10/29/22 11:23 doxycycline Allergy Unknown Unknown Verified 10/29/22 11:23 duloxetine Allergy Unknown Unknown Verified 10/29/22 11:23 gabapentin Allergy Unknown Unknown Verified 10/29/22 11:23 lisinopril Allergy Unknown Unknown Verified 10/29/22 11:23 naproxen Allergy Unknown Unknown Verified 10/29/22 11:23 nortriptyline [From Pamelor] Allergy Unknown Unknown Verified 10/29/22 11:23 oxcarbazepine Allergy Unknown Unknown Verified 10/29/22 11:23 Penicillins Allergy Unknown Unknown Verified 10/29/22 11:23 Past Med/Surg History Medical History Acute heart failure with preserved ejection fraction Aneurysm, thoracic aortic pt unaware of size, follows with Dr. Paige Aortic atherosclerosis Aortic stenosis, severe BPH with obstruction/lower urinary tract symptoms CAD (coronary artery disease) Cervical disc disease Chronic sinusitis Cognitive disorder Coronary artery calcification Depression with anxiety Dyslipidemia Glaucoma Hearing loss Hepatic steatosis History of central retinal vein occlusion Hypertension Iron deficiency Lower GI bleed no current issues Lumbar spinal stenosis Mitral regurgitation MVP (mitral valve prolapse) Osteoarthritis PAC (premature atrial contraction) PAF (paroxysmal atrial fibrillation) Sleep apnea Trigeminal neuralgia received radiation for this, having numbess/tingling to right side of face since this Vitamin D deficiency Surgical History H/O cataract extraction (2013) H/O colonoscopy History of cochlear implant (01/12/12) BILATERAL History of pilonidal cyst removed History of umbilical hernia repair S/P foot surgery, right (12/2010) removal of heel spur S/P laser trabeculoplasty of eye (10/2014) b/l S/P nasal endoscopy with nasal polypectomy (2011) S/P rotator cuff repair b/l shoulders Family History Mother No pertinent family history Other Hypertension Denies family history of Ovarian cancer Prostate cancer Diabetes Myocardial infarction Breast cancer Colorectal cancer Cancer Social History Smoking Status: Never smoker Second Hand Exposure: No; Do You Dip or Chew Tobacco: No; Hx Alcohol Use: No Hx Substance Use: No Preferred Language: Sudanese Communication Ability: Effective Visual Impairment: No Limitations Hearing Ability: Cochlear Implant Topographical Engineer Required: No Beliefs That Will Affect Care: None marital status: Current Living Situation: Spouse and Family current occupational status: retired How many Children do You have: 1 Feels Safe at Home: Yes Childhood Exposure to Second-Hand Smoke: Yes Diet: regular Diet Comment: regular caffeine: Yes (Soda 6 per day. Coffee 1 cup per day.) during the past year weight has: remained stable Dental Care, Regularly: No Physical Activity Frequency: Daily Seatbelt Use: sometimes Sunscreen Use: No Assistive Devices: Cane, CPAP and Walker Review of Systems A total of 10 systems reviewed and were otherwise negative Respiratory: + dyspnea Cardiovascular: + chest pain Physical Exam Vital Signs Vital Signs - 24 hr 11/09/22 21:08 11/09/22 21:08 11/09/22 21:14 Temperature 36.6 C Temperature Source Oral Pulse Rate 96 H Pulse Rate [Finger] Pulse Rhythm Regular Pulse Rhythm [Finger] Pulse Strength Normal Pulse Strength [Finger] Respiratory Rate 20 Respiratory Effort / Characteristics Non-Labored Spontaneous Non-Labored Spontaneous Respiratory Depth Normal Normal Respiratory Pattern Regular Regular Blood Pressure 136/96 Blood Pressure [Right Arm] Blood Pressure Mean 109 Blood Pressure Mean [Right Arm] Blood Pressure Position Lying Blood Pressure Position [Right Arm] Pulse Oximetry 88 L 96 Oxygen Delivery Method Nasal Cannula Nasal Cannula Oxygen Flow Rate 2 Sepsis Recent Fever Within 48 Hours No Sepsis New/Unexplained Change in Mental Status No Sepsis Action Taken by Nursing No Action Required Oxygen Flow Rate - Titration 2 Pulse Oximetry Post Tiitration 96 11/09/22 21:14 11/09/22 21:20 11/09/22 21:16 Temperature 36.6 C 36.6 C Temperature Source Oral Oral Pulse Rate 96 H Pulse Rate [Finger] 96 H Pulse Rhythm Pulse Rhythm [Finger] Regular Pulse Strength Normal Pulse Strength [Finger] Normal Respiratory Rate 20 20 Respiratory Effort / Characteristics Non-Labored Spontaneous Respiratory Depth Normal Respiratory Pattern Regular Blood Pressure 136/96 Blood Pressure [Right Arm] Blood Pressure Mean 109 Blood Pressure Mean [Right Arm] Blood Pressure Position Sitting Blood Pressure Position [Right Arm] Pulse Oximetry 96 96 96 Oxygen Delivery Method Nasal Cannula Nasal Cannula Nasal Cannula Oxygen Flow Rate 2 2 2 Sepsis Recent Fever Within 48 Hours No Sepsis New/Unexplained Change in Mental Status No Sepsis Action Taken by Nursing No Action Required Oxygen Flow Rate - Titration Pulse Oximetry Post Tiitration 11/09/22 21:16 11/09/22 21:22 11/09/22 21:30 Temperature Temperature Source Pulse Rate 85 85 Pulse Rate [Finger] Pulse Rhythm Pulse Rhythm [Finger] Pulse Strength Pulse Strength [Finger] Respiratory Rate 27 H Respiratory Effort / Characteristics Respiratory Depth Respiratory Pattern Blood Pressure 127/90 Blood Pressure [Right Arm] 136/96 Blood Pressure Mean 102 Blood Pressure Mean [Right Arm] 109 Blood Pressure Position Blood Pressure Position [Right Arm] Lying Pulse Oximetry 95 Oxygen Delivery Method Nasal Cannula Oxygen Flow Rate 2 Sepsis Recent Fever Within 48 Hours Sepsis New/Unexplained Change in Mental Status Sepsis Action Taken by Nursing Oxygen Flow Rate - Titration Pulse Oximetry Post Tiitration GENERAL: Patient is awake alert in no acute distress patient is resting comfortably and showing no signs of anxiety EYES: The conjunctivae are clear. The pupils are round and reactive. EARS, NOSE, MOUTH AND THROAT: The nose is without any evidence of any deformity. Mucous membranes are moist. Tongue is midline. NECK: The neck is nontender and supple. RESPIRATORY: Normal respiratory effort is noted there is no evidence of wheezing rhonchi or rales CARDIOVASCULAR: Regular rate and rhythm noted there no murmurs rubs or gallops normal S1 normal S2. GASTROINTESTINAL: The abdomen is soft. Abdomen is nontender. BACK: No midline tenderness or or step-off noted range of motion in flexion extension as well as rotation no signs of muscle spasm noted MUSCULOSKELETAL/EXTREMITIES: There is no evidence of gross deformity full range of motion is noted in the hips and shoulders. SKIN: There is no obvious evidence of any rash. There are no petechiae, pallor or cyanosis noted. NEUROLOGIC: Patient is awake alert and oriented x3 strength is symmetric Course Reevaluation(s) Reevaluation #1: Patient was started on oxygen, IV Lasix, empiric antibiotics Time: 22:47 Consultations Consultation #1: Case was discussed with the [facility] Time: 22:47 Medical Decision Making Medical Records Attestation: I reviewed the patient's medical records. Home Medications Current Medication List: was personally reviewed by me Laboratory Data Attestation: I reviewed the patient's lab results. Lab work interpreted by me elevated creatinine, elevated BNP consistent with CHF 11/09/22 21:30 11/09/22 21:30 Lab Results 11/09/22 11/09/22 11/09/22 Range/Units 21:30 21:30 21:30 WBC 6.46 (4.8-10.8) K/ul RBC 4.53 L (4.70-6.10) M/uL Hgb 14.3 (14.0-18.0) g/dl Hct 43.5 (42.0-52.0) % MCV 96.0 (80.0-100.0) fL MCH 31.6 (25.0-34.0) pg MCHC 32.9 (32.0-36.0) g/dL RDW Std Deviation 63.5 H (36.4-46.3) fL RDW Coeff of Herrera 17.8 H (11.5-14.5) % Plt Count 207 (130-400) K/uL MPV 10.7 (9.4-12.4) fL Immature Gran % (Auto) 0.5 % Neut % (Auto) 78.2 % Lymph % (Auto) 9.9 % [place] % (Auto) 8.8 % Eos % (Auto) 1.4 % Baso % (Auto) 1.2 % Neut # (Auto) 5.05 (1.40-6.50) K/uL Lymph # (Auto) 0.64 L (1.2-3.4) K/uL [place] # (Auto) 0.57 (0.11-0.59) K/uL Eos # (Auto) 0.09 (0-0.50) K/uL Baso # (Auto) 0.08 (0-0.2) K/uL Immature Gran # (Auto) 0.03 (0.01-0.20) K/uL Absolute Nucleated RBC 0.02 (0-0.12) K/uL Nucleated RBC % (auto) 0.3 % PT 13.5 H (9.0-12.0) Seconds INR 1.2 H (0.9-1.1) APTT 30.2 (21.0-31.0) Seconds PTT Ratio 1.1 Sodium (136-145) mmol/L Potassium (3.5-5.1) mmol/L Chloride (98-107) mmol/L Carbon Dioxide (21-32) mmol/L Anion Gap (3-11) BUN (6-23) mg/dl Creatinine (0.6-1.4) mg/dl Est Cr Clr Drug Dosing ml/min Est GFR ( Amer) ml/min Est GFR (Non-Af Amer) ml/min BUN/Creatinine Ratio (10-20) Glucose (70-99(Fasting)) mg/dl Calcium (8.6-10.3) mg/dl Total Bilirubin (0.2-1.0) mg/dl AST (13-39) U/L ALT (7-52) U/L Alkaline Phosphatase (34-104) U/L Troponin I High Sens (0-20) pg/ml B-Natriuretic Peptide 1861 H (0-100) pg/ml Total Protein (6.0-8.3) gm/dl Albumin (3.4-5.0) gm/dl Globulin (2.5-4.0) gm/dl Albumin/Globulin Ratio (0.9-2) SARS-CoV-2, RNA, NAAT (NEGATIVE) 11/09/22 11/09/22 Range/Units 21:30 21:30 WBC (4.8-10.8) K/ul RBC (4.70-6.10) M/uL Hgb (14.0-18.0) g/dl Hct (42.0-52.0) % MCV (80.0-100.0) fL MCH (25.0-34.0) pg MCHC (32.0-36.0) g/dL RDW Std Deviation (36.4-46.3) fL RDW Coeff of Herrera (11.5-14.5) % Plt Count (130-400) K/uL MPV (9.4-12.4) fL Immature Gran % (Auto) % Neut % (Auto) % Lymph % (Auto) % [place] % (Auto) % Eos % (Auto) % Baso % (Auto) % Neut # (Auto) (1.40-6.50) K/uL Lymph # (Auto) (1.2-3.4) K/uL [place] # (Auto) (0.11-0.59) K/uL Eos # (Auto) (0-0.50) K/uL Baso # (Auto) (0-0.2) K/uL Immature Gran # (Auto) (0.01-0.20) K/uL Absolute Nucleated RBC (0-0.12) K/uL Nucleated RBC % (auto) % PT (9.0-12.0) Seconds INR (0.9-1.1) APTT (21.0-31.0) Seconds PTT Ratio Sodium 140 (136-145) mmol/L Potassium 4.1 (3.5-5.1) mmol/L Chloride 108 H (98-107) mmol/L Carbon Dioxide 23 (21-32) mmol/L Anion Gap 9 (3-11) BUN 32 H (6-23) mg/dl Creatinine 1.59 H (0.6-1.4) mg/dl Est Cr Clr Drug Dosing 43.1 ml/min Est GFR ( Amer) 48.8 ml/min Est GFR (Non-Af Amer) 42.1 ml/min BUN/Creatinine Ratio 20.1 H (10-20) Glucose 93 (70-99(Fasting)) mg/dl Calcium 9.3 (8.6-10.3) mg/dl Total Bilirubin 1.4 H (0.2-1.0) mg/dl AST 42 H (13-39) U/L ALT 41 (7-52) U/L Alkaline Phosphatase 145 H (34-104) U/L Troponin I High Sens 46.0 H (0-20) pg/ml B-Natriuretic Peptide (0-100) pg/ml Total Protein 6.5 (6.0-8.3) gm/dl Albumin 3.9 (3.4-5.0) gm/dl Globulin 2.6 (2.5-4.0) gm/dl Albumin/Globulin Ratio 1.5 (0.9-2) SARS-CoV-2, RNA, NAAT NEGATIVE (NEGATIVE) Imaging Data Attestation: I personally reviewed and interpreted this imaging study as follows: ECG Data Attestation: I personally reviewed and interpreted this ECG as follows: MDM Narrative Medical decision making differential diagnosis includes acute coronary syndrome, angina unstable angina acute ND acute CHF acute pneumonia Plan is to check labs, EKG, chest x-ray External medical records were reviewed by me Impression & Plan Congestive heart failure Discharge Plan Visit Data Chief Complaint: Shortness of Breath/Dyspnea ED Provider: Montana Clay Discharge Problem: Congestive heart failure Patient Disposition: Admitted As Inpatient Forms Stand Alone Forms: My [facility] Prescriptions Prescriptions: No Action (DME) Wheelchair (Manual) Device See Rx Instructions .Route Qty: 1 0RF Rx Instructions: Standard Wheelchair, use as directed. atorvastatin 80 mg tablet 80 mg PO HS Qty: 90 1RF bupropion HCl [Wellbutrin XL] 150 mg tablet extended release 24 hr 150 mg PO QAM Qty: 90 3RF fluticasone propionate [Flonase Allergy Relief] 50 mcg/actuation spray,suspension 2 spray intranasal DAILY Qty: 48 1RF Rx Instructions: administer into each nostril pantoprazole 40 mg tablet,delayed release (DR/EC) 40 mg PO DAILY Qty: 90 2RF paroxetine HCl 40 mg tablet 40 mg PO QAM Qty: 90 1RF potassium chloride 20 mEq tablet extended release 20 meq PO QAM Qty: 90 1RF tamsulosin 0.4 mg capsule 0.4 mg PO HS Qty: 90 1RF (DME) Oxygen Home Liters Per Minute See Rx Instructions .ROUTE .MEDSUPPLY Qty: 1 0RF Rx Instructions: 2 liters oxygen blended into CPAP - use with sleep. aspirin 81 mg tablet,delayed release (DR/EC) 81 mg PO DAILY Qty: 90 3RF furosemide [Lasix] 20 mg tablet 20 mg PO DAILY Qty: 30 2RF acetaminophen 500 mg tablet 1,000 mg PO TID PRN (Reason: fever or pain) Qty: 90 5RF metoprolol succinate 25 mg Tablet Extended Release 24 Hr 12.5 mg PO QAM Qty: 30 2RF Rx Instructions: for your heart amlodipine 5 mg tablet 5 mg PO QAM Hold Instructions: Hold until following up with your primary care physician. Referrals Referrals: Nova Rousseau DO [Primary Care Provider] -
[2022-11-09] MEDS ORDERED: AZITHROMYCIN 500 MG in DEXTROSE 5% 250 ML IV ONE (22:16)
[2022-11-09] MEDS ORDERED: cefTRIAXone SODIUM 2,000 MG/70 ML BAG IV STA (22:16)
[2022-11-09] MEDS ORDERED: FUROSEMIDE 40 MG/4 ML VIAL IV ONE (22:16)
[2022-11-09 22:17] LABS: Albumin Globulin Ratio 1.5 (0.9-2); Albumin Level 3.9 gm/dl (3.4-5.0); BUN Creatinine Ratio 20.1 (10-20); Bilirubin,Total 1.4 mg/dl (0.2-1.0); Calcium 9.3 mg/dl (8.6-10.3); Creatinine Clr Calc Pharmacy 43.1 ml/min; Est GFR (African American) 48.8 ml/min; Est GFR (Non-African American) 42.1 ml/min; Globulin 2.6 gm/dl (2.5-4.0); Potassium 4.1 mmol/L (3.5-5.1); Total Protein 6.5 gm/dl (6.0-8.3)
[2022-11-09 22:18] LABS: Basophils # (auto) 0.08 K/uL (0-0.2); Basophils % (auto) 1.2 %; Eosinophils # (auto) 0.09 K/uL (0-0.50); Eosinophils % (auto) 1.4 %; Hematocrit (blood only) 43.5 % (42.0-52.0); Hemoglobin 14.3 g/dl (14.0-18.0); Immature Granulocytes # (auto) 0.03 K/uL (0.01-0.20); Immature Granulocytes % (auto) 0.5 %; Lymphocytes # (auto) 0.64 K/uL (1.2-3.4); Lymphocytes % (auto) 9.9 %; Mean Corpuscular Hemoglobin 31.6 pg (25.0-34.0); Mean Corpuscular Hgb Conc 32.9 g/dL (32.0-36.0); Mean Platelet Volume 10.7 fL (9.4-12.4); Monocytes # (auto) 0.57 K/uL (0.11-0.59); Monocytes % (auto) 8.8 %; Neutrophils # (auto) 5.05 K/uL (1.40-6.50); Neutrophils % (auto) 78.2 %; Nucleated RBC # (auto) 0.02 K/uL (0-0.12); Nucleated RBC % (auto) 0.3 %; Platelet Count 207 K/uL (130-400); RDW Coefficient of Variation 17.8 % (11.5-14.5); RDW Standard Deviation 63.5 fL (36.4-46.3); Red Blood Count 4.53 M/uL (4.70-6.10); White Blood Count 6.46 K/ul (4.8-10.8)
[2022-11-09 22:29] LABS: INR 1.2 (0.9-1.1); Partial Thromboplastin Ratio 1.1; Partial Thromboplastin Time 30.2 Seconds (21.0-31.0); Prothrombin Time 13.5 Seconds (9.0-12.0)
--- NOTE | 2022-11-09 23:22 | History & Physical Report ---
Date of Service November 09, 2022 Assessment & Plan (1) Hypertension: (2) Pneumonia of right lower lobe due to infectious organism: (3) Trigeminal neuralgia: (4) PAF (paroxysmal atrial fibrillation): (5) Dyslipidemia: (6) BPH with obstruction/lower urinary tract symptoms: (7) Aortic stenosis, severe: (8) CAD (coronary artery disease): (9) Acute on chronic heart failure with preserved ejection fraction (HFpEF): (10) Pulmonary hypertension: Plan Right lower lobe pneumonia- It is possible this may be related to an aspiration event, as upon questioning, family reports the patient does cough a bit when he eats periodically Cefepime 2 g IV every 12 hours Azithromycin 500 mg IV daily MRSA swab DuoNebs every 2 hours as needed Acute on chronic HFpEF/elevated troponin/severe aortic stenosis/PAF- Troponin is 46.0, BNP 1861. Given furosemide 40 mg IV in the ED, and will continue every morning Continue aspirin 81 mg daily, metoprolol succinate 12.5 mg every morning, potassium chloride 20 mEq every morning Monitor preload closely, being careful not to overdiuresis Patient is scheduled for a TAVR at [facility] [place] on 11/19/2022. Acute kidney injury on CKD- Creatinine 1.59, with base range 1.18-1.39 Follow closely while diuresing Hyperlipidemia- Continue atorvastatin Anxiety/depression- Continue bupropion, paroxetine BPH with LUTS- Continue tamsulosin at bedtime History of Present Illness Chief Complaint: The patient presents to the emergency department with complaint of chronic shortness of breath over the past several months, which is worsened over the past few weeks, as noted by family who is in attendance. Primary Care Provider: Nova Rousseau DO The patient is a 76-year-old male with a past medical history including HFpEF, hypertension, trigeminal neuralgia, PAF, MVP, dyslipidemia, BPH with LUTS, CAD, gout and severe aortic stenosis, with tentative surgery for TAVR at [facility] on 11/19/2022. He has had chronic shortness of breath over the past several months, but in particular has worsened over the past few weeks, with an intermittently productive cough. Significant abnormal laboratories: Creatinine 1.59, total bilirubin 1.4, AST 42, troponin 46.0, BNP 1861. Chest x-ray shows right lower lobe infiltrate, pleural effusion and pulmonary edema The patient received ceftriaxone 2 g IV, azithromycin 500 mg IV, and furosemide 40 mg IV from the ED Allergies Allergy/AdvReac Type Severity Reaction Status Date / Time baclofen Allergy Unknown Unknown Verified 11/09/22 23:00 cyclobenzaprine Allergy Unknown Unknown Verified 11/09/22 23:00 [From Flexeril] doxazosin Allergy Unknown Unknown Verified 11/09/22 23:00 doxycycline Allergy Unknown Unknown Verified 11/09/22 23:00 duloxetine Allergy Unknown Unknown Verified 11/09/22 23:00 gabapentin Allergy Unknown Unknown Verified 11/09/22 23:00 lisinopril Allergy Unknown Unknown Verified 11/09/22 23:00 naproxen Allergy Unknown Unknown Verified 11/09/22 23:00 nortriptyline [From Pamelor] Allergy Unknown Unknown Verified 11/09/22 23:00 oxcarbazepine Allergy Unknown Unknown Verified 11/09/22 23:00 Penicillins Allergy Unknown Unknown Verified 11/09/22 23:00 Home Medications Medication Instructions Recorded Confirmed Type acetaminophen 500 mg tablet 1,000 mg PO TID PRN fever or pain 11/18/18 11/09/22 Rx #90 tabs aspirin 81 mg tablet,delayed 81 mg PO DAILY #90 tabs 06/09/22 11/09/22 Rx release metoprolol succinate 25 mg 12.5 mg PO QAM #30 tabs 08/22/22 11/09/22 Rx tablet,extended release 24 hr Wheelchair (Manual) #1 ea 09/17/22 11/09/22 Rx Oxygen Home #1 ea 10/12/22 11/09/22 Rx atorvastatin 80 mg tablet 80 mg PO HS #90 tabs 11/05/22 11/09/22 Rx bupropion HCl 150 mg 24 hr tablet, 150 mg PO QAM #90 tabs 11/05/22 11/09/22 Rx extended release (Wellbutrin XL) fluticasone propionate 50 2 spray intranasal DAILY #48 grams 11/05/22 11/09/22 Rx mcg/actuation nasal spray,suspension (Flonase Allergy Relief) pantoprazole 40 mg tablet,delayed 40 mg PO DAILY #90 tabs 11/05/22 11/09/22 Rx release paroxetine HCl 40 mg tablet 40 mg PO QAM #90 tabs 11/05/22 11/09/22 Rx potassium chloride 20 mEq 20 meq PO QAM #90 tabs 11/05/22 11/09/22 Rx tablet,extended release tamsulosin 0.4 mg capsule 0.4 mg PO HS #90 caps 11/05/22 11/09/22 Rx furosemide 40 mg tablet (Lasix) 40 mg PO DAILY 11/09/22 11/09/22 History loratadine 10 mg tablet 10 mg PO DAILY 11/09/22 11/09/22 History Past Med/Surg History Medical History Acute heart failure with preserved ejection fraction Aneurysm, thoracic aortic pt unaware of size, follows with Dr. Paige Aortic atherosclerosis Aortic stenosis, severe BPH with obstruction/lower urinary tract symptoms CAD (coronary artery disease) Cervical disc disease Chronic sinusitis Cognitive disorder Coronary artery calcification Depression with anxiety Dyslipidemia Glaucoma Hearing loss Hepatic steatosis History of central retinal vein occlusion Hypertension Iron deficiency Lower GI bleed no current issues Lumbar spinal stenosis Mitral regurgitation MVP (mitral valve prolapse) Osteoarthritis PAC (premature atrial contraction) PAF (paroxysmal atrial fibrillation) Sleep apnea Trigeminal neuralgia received radiation for this, having numbess/tingling to right side of face since this Vitamin D deficiency Surgical History H/O cataract extraction (2013) H/O colonoscopy History of cochlear implant (01/12/12) BILATERAL History of pilonidal cyst removed History of umbilical hernia repair S/P foot surgery, right (12/2010) removal of heel spur S/P laser trabeculoplasty of eye (10/2014) b/l S/P nasal endoscopy with nasal polypectomy (2011) S/P rotator cuff repair b/l shoulders Family History Mother No pertinent family history Other Hypertension Denies family history of Ovarian cancer Prostate cancer Diabetes Myocardial infarction Breast cancer Colorectal cancer Cancer Social History Smoking Status: Never smoker Second Hand Exposure: No; Do You Dip or Chew Tobacco: No; Hx Alcohol Use: No Hx Substance Use: No Preferred Language: Beninese Communication Ability: Effective Visual Impairment: No Limitations Hearing Ability: Cochlear Implant Instrument Assembler Required: No Beliefs That Will Affect Care: None marital status: Current Living Situation: Spouse and Family Current Living Situation Comment: with and daughter current occupational status: retired How many Children do You have: 1 Other Information That Helps Us Care for You: No Feels Safe at Home: Yes Safety Concerns: Feels Safe At This Time Childhood Exposure to Second-Hand Smoke: Yes Diet: regular Diet Comment: regular caffeine: Yes (Soda 6 per day. Coffee 1 cup per day.) during the past year weight has: remained stable Dental Care, Regularly: No Physical Activity Frequency: Daily Seatbelt Use: sometimes Sunscreen Use: No Assistive Devices: Cane, Hearing Aid - Left and Walker Review of Systems Review of Systems: The patient denies chest pain, palpitations, lower extremity swelling, sore throat, fevers, chills, sweats, nausea, vomiting, diarrhea , constipation, abdominal pain, pelvic pain, blood in urine or stool, dysuria, urinary frequency or urgency, lightheadedness, dizziness, headache, memory loss, loss of consciousness, rash, abnormal bruising or bleeding, imbalance, focal weakness, numbness or tingling in arms or legs, generalized arthralgias or myalgias, back or neck pain, or night sweats. The review of systems is otherwise negative other than for that already noted above, and at least 10 systems have been reviewed. Physical Exam Physical Exam: The patient is awake, alert and oriented 3, well developed and well nourished, normocephalic and atraumatic, lying in bed and in no acute distress. HEENT--PERRL, EOMI, mucous membranes and oropharynx dry. Neck--supple. No JVD. No bruits. Thyroid normal, trachea midline, no adenopathy. Heart--regular rate and rhythm. murmur Lungs--crackles at the bases bilaterally, right greater than left. Abdomen--normal bowel sounds and soft. Nontender. Nondistended, no hernias or masses, no organomegaly. Extremities--no cyanosis or clubbing. No edema. Dermatologic--normal skin turgor, normal color, no abnormal lymph nodes, no rash. Neurologic--cranial nerves II through XII grossly intact. Rheumatologic--normal range of motion. Psychiatric--normal affect. Results & Data Results & Data Vital Signs (Past 12 Hours) Vital Signs Temp Pulse Pulse Resp BP BP Pulse Ox 06/19/23 23:00 85 25 H 136/103 H 97 11/09/22 22:30 85 25 H 112/96 96 11/09/22 22:00 85 25 H 128/102 H 96 11/09/22 21:30 85 27 H 127/90 95 11/09/22 21:22 85 11/09/22 21:16 136/96 11/09/22 21:16 36.6 C 96 H 20 136/96 96 11/09/22 21:20 96 11/09/22 21:14 36.6 C 96 H 20 96 11/09/22 21:14 36.6 C 96 H 20 136/96 96 11/09/22 21:08 88 L O2 Del Method O2 Flow Rate 11/09/22 23:00 Nasal Cannula 2 11/09/22 22:30 Nasal Cannula 2 11/09/22 22:00 Nasal Cannula 2 11/09/22 21:30 Nasal Cannula 2 11/09/22 21:22 11/09/22 21:16 11/09/22 21:16 Nasal Cannula 2 11/09/22 21:20 Nasal Cannula 2 11/09/22 21:14 Nasal Cannula 2 11/09/22 21:14 Nasal Cannula 2 11/09/22 21:08 Nasal Cannula Laboratory Results Laboratory Results WBC 6.46 K/ul (4.8-10.8) 11/09/22 21:30 RBC 4.53 M/uL (4.70-6.10) L 11/09/22 21:30 Hgb 14.3 g/dl (14.0-18.0) 11/09/22 21:30 Hct 43.5 % (42.0-52.0) 11/09/22 21:30 MCV 96.0 fL (80.0-100.0) 11/09/22 21:30 MCH 31.6 pg (25.0-34.0) 11/09/22 21:30 MCHC 32.9 g/dL (32.0-36.0) 11/09/22 21:30 RDW Std Deviation 63.5 fL (36.4-46.3) H 11/09/22 21:30 RDW Coeff of Herrera 17.8 % (11.5-14.5) H 11/09/22 21:30 Plt Count 207 K/uL (130-400) 11/09/22 21: MPV 10.7 fL (9.4-12.4) 11/09/22 21: Immature Gran % (Auto) 0.5 % 11/09/22 21: Neut % (Auto) 78.2 % 11/09/22 21: Lymph % (Auto) 9.9 % 11/09/22 21: Sharkey % (Auto) 8.8 % 11/09/22 21: Eos % (Auto) 1.4 % 11/09/22: Baso % (Auto) 1.2 % 11/09/22: Neut # (Auto) 5.05 K/uL (1.40-6.50) 11/09/22: Lymph # (Auto) 0.64 K/uL (1.2-3.4) L 11/09/22 21: Sharkey # (Auto) 0.57 K/uL (0.11-0.59) 11/09/22 21: Eos # (Auto) 0.09 K/uL (0-0.50) 11/09/22 21: Baso # (Auto) 0.08 K/uL (0-0.2) 11/09/22: Immature Gran # (Auto) 0.03 K/uL (0.01-0.20) 11/09/22: Absolute Nucleated RBC 0.02 K/uL (0-0.12) 11/09/22: Nucleated RBC % (auto) 0.3 % 11/09/22: PT 13.5 Seconds (9.0-12.0) H 11/09/22 21:30 INR 1.2 (0.9-1.1) H 11/09/22 21: APTT 30.2 Seconds (21.0-31.0) 11/09/22: PTT Ratio 1.1 11/09/22 21: Sodium 140 mmol/L (136-145) 11/09/22 21: Potassium 4.1 mmol/L (3.5-5.1) 11/09/22: Chloride 108 mmol/L (98-107) H 11/09/22 21:30 Carbon Dioxide 23 mmol/L (21-32) 11/09/22 21:30 Anion Gap 9 (3-11) 11/09/22 21:30 BUN 32 mg/dl (6-23) H 11/09/22 21:30 Creatinine 1.59 mg/dl (0.6-1.4) H 11/09/22 21:30 Est Cr Clr Drug Dosing 43.1 ml/min 11/09/22 21:30 Est GFR ( Amer) 48.8 ml/min 11/09/22 21:30 Est GFR (Non-Af Amer) 42.1 ml/min 11/09/22 21:30 BUN/Creatinine Ratio 20.1 (10-20) H 11/09/22 21:30 Glucose 93 mg/dl (70-99(Fasting)) 11/09/22 21:30 Calcium 9.3 mg/dl (8.6-10.3) 11/09/22 21:30 Total Bilirubin 1.4 mg/dl (0.2-1.0) H 11/09/22 21:30 AST 42 U/L (13-39) H 11/09/22 21:30 ALT 41 U/L (7-52) 11/09/22 21:30 Alkaline Phosphatase 145 U/L (34-104) H 11/09/22 21:30 Troponin I High Sens 44.3 pg/ml (0-20) H 11/10/22 00:58 B-Natriuretic Peptide 1861 pg/ml (0-100) H 11/09/22 21:30 Total Protein 6.5 gm/dl (6.0-8.3) 11/09/22 21:30 Albumin 3.9 gm/dl (3.4-5.0) 11/09/22 21:30 Globulin 2.6 gm/dl (2.5-4.0) 11/09/22 21:30 Albumin/Globulin Ratio 1.5 (0.9-2) 11/09/22 21:30 SARS-CoV-2, RNA, NAAT NEGATIVE (NEGATIVE) 11/09/22 21:30 Code Status & VTE Plan Code Status Full code VTE Prophylaxis Plan VTE Prophylaxis will be ordered: Yes PG Care Time/CCT Total # of Minutes Spent Total Time Spent with Patient: Total time spent is greater than 50% in coordination of care (as documented) at patient's floor/unit and/or counseling patient: Coding Level of Care Code 68257 INT INP/OBS CARE 3MIN Diagnoses Hypertension I10 Pneumonia of right lower lobe due to infectious organism J18.9 Trigeminal neuralgia G50.0 PAF (paroxysmal atrial fibrillation) I48.0 Dyslipidemia E78.5 BPH with obstruction/lower urinary tract symptoms N40.1; N13.8 Aortic stenosis, severe I35.0 CAD (coronary artery disease) I25.10 Acute on chronic heart failure with preserved ejection fraction (HFpEF) I50.33 Pulmonary hypertension I27.20
[2022-11-10] MEDS ORDERED: ACETAMINOPHEN 500 MG TAB PO PRN (00:47)
[2022-11-10] MEDS ORDERED: ONDANSETRON INJ 2 MG/ML 2 ML VIAL IV PRN (00:47)
[2022-11-10] MEDS ORDERED: ALBUT/IPRATROP 3MG/0.5MG NEB 3 ML VIAL NEB PRN (03:11)
--- NOTE | 2022-11-10 07:58 | XRay Report ---
SINGLE VIEW CHEST CLINICAL HISTORY: Atypical chest pain. FINDINGS: An AP, portable, upright chest radiograph is compared to study dated 10/07/2022 and correlat ed with chest CT dated 11/15/2017. The heart is enlarged noting atherosclerotic calcification of the t horacic aorta. There is pulmonary vascular congestion. There is a layering right pleural effusion wit h right basilar consolidation. No pneumothorax is seen. The skeletal structures are osteopenic. The b miguel thorax is grossly intact. Advanced arthritic change is seen in the shoulders. IMPRESSION: 1. Cardiomegaly with pulmonary vascular congestion. 2. Layering right pleural effusion with right basilar consolidation. ACT 112: Negative or not required by law. Electronically signed by: Kimo Mora M.D. 11/10/2022 7:57 AM
[2022-11-10 08:07] LABS: Basophils # (auto) 0.09 K/uL (0-0.2); Basophils % (auto) 1.6 %; Eosinophils # (auto) 0.08 K/uL (0-0.50); Eosinophils % (auto) 1.4 %; Hematocrit (blood only) 43.7 % (42.0-52.0); Hemoglobin 14.1 g/dl (14.0-18.0); Immature Granulocytes # (auto) 0.03 K/uL (0.01-0.20); Immature Granulocytes % (auto) 0.5 %; Lymphocytes # (auto) 0.92 K/uL (1.2-3.4); Lymphocytes % (auto) 15.9 %; Mean Corpuscular Hemoglobin 30.9 pg (25.0-34.0); Mean Corpuscular Hgb Conc 32.3 g/dL (32.0-36.0); Mean Corpuscular Volume 95.6 fL (80.0-100.0); Mean Platelet Volume 10.8 fL (9.4-12.4); Monocytes % (auto) 8.6 %; Neutrophils # (auto) 4.17 K/uL (1.40-6.50); Platelet Count 195 K/uL (130-400); RDW Coefficient of Variation 17.7 % (11.5-14.5); RDW Standard Deviation 62.2 fL (36.4-46.3); Red Blood Count 4.57 M/uL (4.70-6.10); White Blood Count 5.79 K/ul (4.8-10.8)
[2022-11-10 08:19] LABS: Albumin Globulin Ratio 1.4 (0.9-2); Albumin Level 3.7 gm/dl (3.4-5.0); BUN Creatinine Ratio 20.7 (10-20); Bilirubin,Total 1.2 mg/dl (0.2-1.0); Calcium 9.6 mg/dl (8.6-10.3); Creatinine Clr Calc Pharmacy 45.8 ml/min; Est GFR (African American) 52.4 ml/min; Est GFR (Non-African American) 45.2 ml/min; Globulin 2.6 gm/dl (2.5-4.0); Magnesium 1.8 mg/dl (1.7-2.4); Potassium 3.8 mmol/L (3.5-5.1); Total Protein 6.3 gm/dl (6.0-8.3)
[2022-11-10] MEDS: LORATADINE 10 MG TAB PO SCH (08:22)
[2022-11-10] MEDS: FUROSEMIDE 40 MG/4 ML VIAL IV SCH (08:22)
[2022-11-10] MEDS: buPROPion XL 150 MG TABCR PO SCH (08:22)
[2022-11-10] MEDS: PANTOprazole 40 MG TAB PO SCH (08:23)
[2022-11-10] MEDS: PARoxetine HCL 20 MG TAB PO SCH (08:23)
[2022-11-10] MEDS: METOPROLOL SUCC 25MG EXT REL TAB PO SCH (08:23)
[2022-11-10] MEDS: POTASSIUM CHLORIDE CRTAB 20 MEQ TABCR PO SCH (08:23)
[2022-11-10] MEDS: ASPIRIN 81 MG ECTAB PO SCH (08:23)
[2022-11-10] MEDS: HEPARIN SOD 5,000 UNIT/0.5 ML VIAL SQ SCH ×2 (08:24→20:25)
[2022-11-10] MEDS: CEFEPIME 2,000 MG in SYRINGE 0 ML IV SCH ×2 (08:26→20:25)
[2022-11-10] MEDS ORDERED: FUROSEMIDE 40 MG TAB PO SCH (09:00)
--- NOTE | 2022-11-10 10:07 | Cardiology Consultation ---
Date of Consultation November 10, 2022 Assessment & Plan (1) Pneumonia of right lower lobe due to infectious organism: (2) (HFpEF) heart failure with preserved ejection fraction: (3) Aortic stenosis, severe: (4) CAD (coronary artery disease): (5) Hypotension: (6) MVP (mitral valve prolapse): (7) Mitral regurgitation: (8) Dyslipidemia: Plan Mr. 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 He has also had nausea without vomiting, diarrhea, and intermittent abdominal bloating. He is currently being treated suspected RLL pneumonia, EVELYN, and HFpEF secondary to severe and LVH. He has an elevated BNP of 1861 pg/mL and a layering right pleural effusion. His high sensitivity Troponin I levels are 44.8, 44.3, and 46.0 pg/mL -- this is not consistent with ACS. His body weight actually decreased leading up to this hospitalization. The patient received IV Ceftriaxone 2 g, IV Azithromycin 500 mg, and IV Furosemide 40 mg from the ER. For his suspected pneumonia he is on IV Cefepime 2 g every 12 hours and IV Azithromycin 500 mg daily. Patient is receiving IV Lasix 40 mg daily and his I&O's show a negative fluid balance of 75 mL since being admitted. His Creatinine has improved from 1.59 mg/dL on admission and it is down to 1.50 mg/dL this morning. Comfort Station Supervisor shows a NSR in the 70's to 80's with a 1st degree AV block and an IVCD with occasional ectopy. Please note that the patient was hospitalized at [facility] on 10/07/22 after presenting with Syncopal Episodes secondary to Symptomatic and Severe Aortic Stenosis. Supportive measures were taken, adjustments to medications to maintain his blood pressure. His Amlodipine is on hold. He was evaluated by Cardiothoracic Surgery at [facility] on 09/30/22 to discuss surgical AVR and revascularization options. He was evaluated by Interventional Cardiology/TAVR team on 10/27/22 to discuss TAVR/Catheter Based Revascularization. His TAVR and catheter based revascularization is scheduled on 11/18/22. In general the patient continues to be very limited his activities due to ligh theadedness and dyspnea secondary Severe -- so he essentially spends his days doing things from his wheelchair. Patient has not had any angina pectoris or anginal equivalent symptoms, he has not had any further syncopal episodes, and he has not had any recurrent atrial fibrillation to the best of his knowledge. He is no longer taking Eliquis but he does have it available if he goes back and atrial fibrillation. Recommend the followin. Monitor daily body weights and I&O's. 2. Avoid dehydrating the patient, continue gentle diuresis until creatinine climbs or patient's systolic blood pressure is consistently < 110 mmHg. 3. The tobar to managing this patient's heart failure is to undergo TAVR and catheter based revascularization which is scheduled on 11/18/22 at [facility]. 4. Minimize standing or walking until after TAVR completed due to his risk of syncope/hypotension secondary to severe . 5. Continue Aspirin 81 mg daily. 6. Continue Atorvastatin 80 mg daily. 7. Continue Toprol XL 12.5 mg daily. 8. Continue supplemental oxygen. 9. Monitor daily laboratories. We will continue to follow this patient along while hospitalized and afterwards. Patient agrees with this plan. History of Present Illness Reason for Consultation: -- Diastolic CHF. -- Severe and Symptomatic Aortic Stenosis. -- CAD. Requesting Physician: Mauro Che MD Attending Physician: Toñito Paige MD History of Present Illness Mr. 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 He has also had nausea without vomiting, di arrhea, and intermittent abdominal bloating. He was diagnosed with a suspected RLL pneumonia, EVELYN, and HFpEF secondary to severe and LVH with an elevated BNP of 1861 pg/mL, and a layering right pleural effusion. His high sensitivity Troponin I levels are 44.8, 44.3, and 46.0 pg/mL -- this is not consistent with ACS. His body weight actually decreased leading up to this hospitalization. The patient received IV Ceftriaxone 2 g, IV Azithromycin 500 mg, and IV Furosemide 40 mg from the ER. Patient is receiving IV Lasix 40 mg daily and his I&O's show a negative fluid balance of 75 mL since being admitted. His Creatinine has improved from 1.59 mg/dL on admission and it is down to 1.50 mg/dL this morning. Comfort Station Supervisor shows a NSR in the 70's to 80's with a 1st degree AV block and an IVCD with occasional ectopy. Please note that the patient was hospitalized at [facility] on 10/07/22 after presenting with Syncopal Episodes secondary to Symptomatic and Severe Aortic Stenosis. Supportive measures were taken, adjustments to medications to maintain his blood pressure. His Amlodipine is on hold. He was evaluated by Cardiothoracic Surgery at [facility] on 09/30/22 to discuss surgical AVR and r evascularization options. He was evaluated by Interventional Cardiology/TAVR team on 10/27/22 to discuss TAVR/Catheter Based Revascularization. His TAVR and catheter based revascularization is scheduled on 11/18/22. In general the patient continues to be very limited his activities due to lightheadedness and dyspnea secondary Severe -- so he essentially spends his days doing things from his wheelchair. He denies any exertional chest pain, heaviness, tightness, pressure, or discomfort. He has not had any exertional neck, jaw, back, or arm pain. He has not had any syncopal episodes since being discharged on 10/08/2022. Patient has not had any recurrent A-Fib since I last saw him to the best of his knowledge. He is no longer taking Eliquis but he does have it available if he goes back and atrial fibrillation. He is compliant with his medications. CARDIAC CATHETERIZATION 08/31/22: Coronary Angiography: 1.LMCA: Large caliber vessel. No significant CAD. 2.LAD:Large caliber vessel that wraps around the apex. Ostial/proximal LAD 30% to 40%. Otherwise, luminal irregularities throughout the proximal and mid LAD with focal mid LAD 40% to 50% stenosis. Large high D1 with proximal 70% to 80%. Medium caliber D2. CLINTON-3 flow throughout the LAD system. 3 LCx: Very large caliber and dominant vessel. Proximal LCx 70% to 80%. Mid LCx 50%. OM1, PL branches and PDA without significant CAD. CLINTON-3 flow throughout the LCx system. 4. RCA: Small and nondominant. Luminal irregularities throughout with mid RCA 40%. Right Heart Catheterization: 1. Initially, unable to pass the right heart catheter beyond the proximal upper extremity. Venography was performed and demonstrated tortuosity. Whisper wire was able to be advanced. Over the wire, 6 Croatian right heart catheterization was able to be advanced. 2. Pulmonary capillary wedge pressure: V wave 66 with a mean of 48 mmHg. 3. PA pressure: 87/39 with a mean of 55 mmHg. 4. RV pressure: 84/12 with EDP 21 mmHg. 5. Right atrial pressure: A-wave 16; V wave 19; mean 14 mmHg. 6. Cardiac output via thermodilution was 3.87 L/min, with a cardiac index of 1.92 L/min/m. 7. PVR 1.8 Wood units. IMPRESSION: 1. Severe CAD involving proximal dominant LCx and proximal large caliber D1. 2. Otherwise nonobstructive CAD. 3. Severe pulmonary hypertension (postcapillary) due to left heart failure. 4. Severely elevated pulmonary capillary wedge pressure. 5. Previously documented severe aortic stenosis. ECHOCARDIOGRAM 07/03/22: -- Normal LV systolic function. -- LVEF 60% to 65% without regional wall motion abnormalities. -- Mild concentric LVH. -- Severe aortic valve stenosis with trivial AI -- Ao V2 max 394.7 cm/sec, Ao PG 62.3 mmHg, Ao MG 24.7 mmHg. -- Prolapse of the posterior mitral leaflet. -- Aortic root measures 4.0 cm. ECHOCARDIOGRAM 07/31/21: -- Normal LV systolic function. -- LVEF 60% to 65% without regional wall motion abnormalities. -- Mild concentric LVH. -- Moderate aortic valve stenosis. -- Prolapse of the posterior mitral leaflet. -- Mild aortic root dilation at 4.3 cm. -- Mildly dilated ascending aorta at 4.0 cm in diameter. -- No significant change compared to 06/13/2020 study. Allergies Allergy/AdvReac Type Severity Reaction Status Date / Time baclofen Allergy Unknown Unknown Verified 11/09/22 23:00 cyclobenzaprine Allergy Unknown Unknown Verified 11/09/22 23:00 [From Flexeril] doxazosin Allergy Unknown Unknown Verified 11/09/22 23:00 doxycycline Allergy Unknown Unknown Verified 11/09/22 23:00 duloxetine Allergy Unknown Unknown Verified 11/09/22 23:00 gabapentin Allergy Unknown Unknown Verified 11/09/22 23:00 lisinopril Allergy Unknown Unknown Verified 11/09/22 23:00 naproxen Allergy Unknown Unknown Verified 11/09/22 23:00 nortriptyline [From Pamelor] Allergy Unknown Unknown Verified 11/09/22 23:00 oxcarbazepine Allergy Unknown Unknown Verified 11/09/22 23:00 Penicillins Allergy Unknown Unknown Verified 11/09/22 23:00 Home Medications Medication Instructions Recorded Confirmed Type acetaminophen 500 mg tablet 1,000 mg PO TID PRN fever or pain 11/18/18 11/09/22 Rx #90 tabs aspirin 81 mg tablet,delayed 81 mg PO DAILY #90 tabs 06/09/22 11/09/22 Rx release metoprolol succinate 25 mg 12.5 mg PO QAM #30 tabs 08/22/22 11/09/22 Rx tablet,extended release 24 hr Wheelchair (Manual) #1 ea 09/17/22 11/09/22 Rx Oxygen Home #1 ea 10/12/22 11/09/22 Rx atorvastatin 80 mg tablet 80 mg PO HS #90 tabs 11/05/22 11/09/22 Rx bupropion HCl 150 mg 24 hr tablet, 150 mg PO QAM #90 tabs 11/05/22 11/09/22 Rx extended release (Wellbutrin XL) fluticasone propionate 50 2 spray intranasal DAILY #48 grams 11/05/22 11/09/22 Rx mcg/actuation nasal spray,suspension (Flonase Allergy Relief) pantoprazole 40 mg tablet,delayed 40 mg PO DAILY #90 tabs 11/05/22 11/09/22 Rx release paroxetine HCl 40 mg tablet 40 mg PO QAM #90 tabs 11/05/22 11/09/22 Rx potassium chloride 20 mEq 20 meq PO QAM #90 tabs 11/05/22 11/09/22 Rx tablet,extended release tamsulosin 0.4 mg capsule 0.4 mg PO HS #90 caps 11/05/22 11/09/22 Rx furosemide 40 mg tablet (Lasix) 40 mg PO DAILY 11/09/22 11/09/22 History loratadine 10 mg tablet 10 mg PO DAILY 11/09/22 11/09/22 History Patient History Medical History Acute heart failure with preserved ejection fraction Aneurysm, thoracic aortic pt unaware of size, follows with Dr. Paige Aortic atherosclerosis Aortic stenosis, severe BPH with obstruction/lower urinary tract symptoms CAD (coronary artery disease) Cervical disc disease Chronic sinusitis Cognitive disorder Coronary artery calcification Depression with anxiety Dyslipidemia Glaucoma Hearing loss Hepatic steatosis History of central retinal vein occlusion Hypertension Iron deficiency Lower GI bleed no current issues Lumbar spinal stenosis Mitral regurgitation MVP (mitral valve prolapse) Osteoarthritis PAC (premature atrial contraction) PAF (paroxysmal atrial fibrillation) Sleep apnea Trigeminal neuralgia received radiation for this, having numbess/tingling to right side of face since this Vitamin D deficiency Surgical History H/O cataract extraction (2013) H/O colonoscopy History of cochlear implant (01/12/12) BILATERAL History of pilonidal cyst removed History of umbilical hernia repair S/P foot surgery, right (12/2010) removal of heel spur S/P laser trabeculoplasty of eye (10/2014) b/l S/P nasal endoscopy with nasal polypectomy (2011) S/P rotator cuff repair b/l shoulders Family History Mother No pertinent family history Other Hypertension Denies family history of Ovarian cancer Prostate cancer Diabetes Myocardial infarction Breast cancer Colorectal cancer Cancer Social History Smoking Status: Never smoker Second Hand Exposure: No; Do You Dip or Chew Tobacco: No; Hx Alcohol Use: No Hx Substance Use: No Preferred Language: Azerbaijani Communication Ability: Effective Visual Impairment: No Limitations Hearing Ability: Cochlear Implant Lap Checker Required: No Beliefs That Will Affect Care: None marital status: Current Living Situation: Spouse and Family Current Living Situation Comment: with and daughter current occupational status: retired How many Children do You have: 1 Other Information That Helps Us Care for You: No Feels Safe at Home: Yes Safety Concerns: Feels Safe At This Time Childhood Exposure to Second-Hand Smoke: Yes Diet: regular Diet Comment: regular caffeine: Yes (Soda 6 per day. Coffee 1 cup per day.) during the past year weight has: remained stable Dental Care, Regularly: No Physical Activity Frequency: Daily Seatbelt Use: sometimes Sunscreen Use: No Assistive Devices: Cane, Hearing Aid - Left and Walker Review of Systems Review of Systems: -- He denies any fever, chills, or night sweats. -- He denies any focal abdominal pain. -- 10 point ROS completed and is negative with the exception of what is mentioned in the HPI. Physical Exam Physical Exam: Blood pressure is 115/79 left arm seated. Pulse 86 and regular. GENERAL: Patient in no acute distress. Bilateral hearing aids/cochlear implants present. Patient lying in his bed in a semirecumbent position. HEENT: Facies symmetric. EOM's intact. No perioral cyanosis. NECK: No JVD. JVP is elevated. CHEST/LUNGS: Absent breath sounds in the right base, crackles in the left base. CVS: S1 and S2 are regular with with a grade 2-3/6 crescendo decrescendo basal systolic murmur heard best over the right 2nd intercostal space, there is also a grade 2/6 apical systolic murmur which radiates to the axilla. No obvious diastolic murmurs. No gallops or rubs. PMI is nonpalpable. No lifts, heaves, or thrills. No abdominal aortic or renal bruits. ABDOMINAL EXAM: Bowel sounds are present. No masses, organomegaly, or tenderness. EXTREMITIES: No clubbing or cyanosis. Trace bipedal edema. Intact radial pulses bilaterally. NEUROLOGIC EXAM: Patient is awake, alert, and oriented. Pleasant and cooperative. Answers questions appropriately. Speech is clear. DRENCHER: -- NSR in the 70s and 80's with a 1st degree AVB and an IVCD and occasional ectopy. Results & Data Vital Signs (Past 12 Hours) Vital Signs Temp Pulse Pulse Resp BP BP BP 11/10/22 08:00 11/10/22 08:36 36.4 C L 92 H 18 115/79 11/10/22 03:12 36.5 C 91 H 20 109/74 11/10/22 02:24 36.2 C L 100 H 16 99/68 L 11/10/22 02:23 36.2 C L 100 H 16 99/68 L 11/10/22 01:07 89 11/10/22 00:53 11/10/22 00:11 86 20 122/93 11/10/22 00:00 90 25 H 122/93 11/09/22 23:30 86 25 H 119/84 11/09/22 23:00 85 25 H 136/103 H 11/09/22 22:30 85 25 H 112/96 Pulse Ox O2 Del Method O2 Flow Rate 11/10/22 08:00 Nasal Cannula 2 11/10/22 08:36 95 Room Air 11/10/22 03:12 98 Nasal Cannula 3.0 11/10/22 02:24 98 Room Air 11/10/22 02:23 98 Nasal Cannula 3 11/10/22 01:07 11/10/22 00:53 Nasal Cannula 2 11/10/22 00:11 98 Nasal Cannula 2 11/10/22 00:00 97 Nasal Cannula 2 11/09/22 23:30 96 Nasal Cannula 2 11/09/22 23:00 97 Nasal Cannula 2 11/09/22 22:30 96 Nasal Cannula 2 Laboratory Results Laboratory Results - last 24 hr 11/09/22 11/09/22 11/09/22 21:30 21:30 21:30 WBC 6.46 RBC 4.53 L Hgb 14.3 Hct 43.5 MCV 96.0 MCH 31.6 MCHC 32.9 RDW Std Deviation 63.5 H RDW Coeff of Herrera 17.8 H Plt Count 207 MPV 10.7 Immature Gran % (Auto) 0.5 Neut % (Auto) 78.2 Lymph % (Auto) 9.9 Williamson % (Auto) 8.8 Eos % (Auto) 1.4 Baso % (Auto) 1.2 Neut # (Auto) 5.05 Lymph # (Auto) 0.64 L Williamson # (Auto) 0.57 Eos # (Auto) 0.09 Baso # (Auto) 0.08 Immature Gran # (Auto) 0.03 Absolute Nucleated RBC 0.02 Nucleated RBC % (auto) 0.3 PT 13.5 H INR 1.2 H APTT 30.2 PTT Ratio 1.1 Sodium Potassium Chloride Carbon Dioxide Anion Gap BUN Creatinine Est Cr Clr Drug Dosing Est GFR ( Amer) Est GFR (Non-Af Amer) BUN/Creatinine Ratio Glucose Calcium Magnesium Total Bilirubin AST ALT Alkaline Phosphatase Troponin I High Sens B-Natriuretic Peptide 1861 H Total Protein Albumin Globulin Albumin/Globulin Ratio Nasal Screen MRSA (PCR) SARS-CoV-2, RNA, NAAT 11/09/22 11/09/22 11/10/22 21:30 21:30 00:58 WBC RBC Hgb Hct MCV MCH MCHC RDW Std Deviation RDW Coeff of Herrera Plt Count MPV Immature Gran % (Auto) Neut % (Auto) Lymph % (Auto) Williamson % (Auto) Eos % (Auto) Baso % (Auto) Neut # (Auto) Lymph # (Auto) Williamson # (Auto) Eos # (Auto) Baso # (Auto) Immature Gran # (Auto) Absolute Nucleated RBC Nucleated RBC % (auto) PT INR APTT PTT Ratio Sodium 140 Potassium 4.1 Chloride 108 H Carbon Dioxide 23 Anion Gap 9 BUN 32 H Creatinine 1.59 H Est Cr Clr Drug Dosing 43.1 Est GFR ( Amer) 48.8 Est GFR (Non-Af Amer) 42.1 BUN/Creatinine Ratio 20.1 H Glucose 93 Calcium 9.3 Magnesium Total Bilirubin 1.4 H AST 42 H ALT 41 Alkaline Phosphatase 145 H Troponin I High Sens 46.0 H 44.3 H B-Natriuretic Peptide Total Protein 6.5 Albumin 3.9 Globulin 2.6 Albumin/Globulin Ratio 1.5 Nasal Screen MRSA (PCR) SARS-CoV-2, RNA, NAAT NEGATIVE 11/10/22 11/10/22 11/10/22 07:26 07:26 07:26 WBC 5.79 RBC 4.57 L Hgb 14.1 Hct 43.7 MCV 95.6 MCH 30.9 MCHC 32.3 RDW Std Deviation 62.2 H RDW Coeff of Herrera 17.7 H Plt Count 195 MPV 10.8 Immature Gran % (Auto) 0.5 Neut % (Auto) 72.0 Lymph % (Auto) 15.9 Williamson % (Auto) 8.6 Eos % (Auto) 1.4 Baso % (Auto) 1.6 Neut # (Auto) 4.17 Lymph # (Auto) 0.92 L Williamson # (Auto) 0.50 Eos # (Auto) 0.08 Baso # (Auto) 0.09 Immature Gran # (Auto) 0.03 Absolute Nucleated RBC Nucleated RBC % (auto) PT INR APTT PTT Ratio Sodium 140 Potassium 3.8 Chloride 105 Carbon Dioxide 27 Anion Gap 8 BUN 31 H Creatinine 1.50 H Est Cr Clr Drug Dosing 45.8 Est GFR ( Amer) 52.4 Est GFR (Non-Af Amer) 45.2 BUN/Creatinine Ratio 20.7 H Glucose 87 Calcium 9.6 Magnesium 1.8 Total Bilirubin 1.2 H AST 42 H ALT 42 Alkaline Phosphatase 124 H Troponin I High Sens 44.8 H B-Natriuretic Peptide Total Protein 6.3 Albumin 3.7 Globulin 2.6 Albumin/Globulin Ratio 1.4 Nasal Screen MRSA (PCR) SARS-CoV-2, RNA, NAAT 11/10/22 Unknown WBC RBC Hgb Hct MCV MCH MCHC RDW Std Deviation RDW Coeff of Herrera Plt Count MPV Immature Gran % (Auto) Neut % (Auto) Lymph % (Auto) Williamson % (Auto) Eos % (Auto) Baso % (Auto) Neut # (Auto) Lymph # (Auto) Williamson # (Auto) Eos # (Auto) Baso # (Auto) Immature Gran # (Auto) Absolute Nucleated RBC Nucleated RBC % (auto) PT INR APTT PTT Ratio Sodium Potassium Chloride Carbon Dioxide Anion Gap BUN Creatinine Est Cr Clr Drug Dosing Est GFR ( Amer) Est GFR (Non-Af Amer) BUN/Creatinine Ratio Glucose Calcium Magnesium Total Bilirubin AST ALT Alkaline Phosphatase Troponin I High Sens B-Natriuretic Peptide Total Protein Albumin Globulin Albumin/Globulin Ratio Nasal Screen MRSA (PCR) Negative SARS-CoV-2, RNA, NAAT Diagnostic Findings CXR 11/09/22: An AP, portable, upright chest radiograph is compared to study dated 10/07/2022 and correlated with chest CT dated 11/15/2017. The heart is enlarged noting atherosclerotic calcification of the thoracic aorta. There is pulmonary vascular congestion. There is a layering right pleural effusion with right basilar consolidation. No pneumothorax is seen. The skeletal structures are osteopenic. The bony thorax is grossly intact. Advanced arthritic change is seen in the shoulders. IMPRESSION: 1. Cardiomegaly with pulmonary vascular congestion. 2. Layering right pleural effusion with right basilar consolidation. Medications Administered Medications acetaminophen 500 mg tablet 1,000 mg PO TID PRN fever or pain #90 tabs 11/18/18 [Rx Confirmed 11/09/22] aspirin 81 mg tablet,delayed release 81 mg PO DAILY #90 tabs 06/09/22 [Rx Confirmed 11/09/22] metoprolol succinate 25 mg tablet,extended release 24 hr 12.5 mg PO QAM #30 tabs 08/22/22 [Rx Confirmed 11/09/22] Wheelchair (Manual) #1 ea 09/17/22 [Rx Confirmed 11/09/22] Oxygen Home #1 ea 10/12/22 [Rx Confirmed 11/09/22] atorvastatin 80 mg tablet 80 mg PO HS #90 tabs 11/05/22 [Rx Confirmed 11/09/22] bupropion HCl 150 mg 24 hr tablet, extended release (Wellbutrin XL) 150 mg PO QAM #90 tabs 11/05/22 [Rx Confirmed 11/09/22] fluticasone propionate 50 mcg/actuation nasal spray,suspension (Flonase Allergy Relief) 2 spray intranasal DAILY #48 grams 11/05/22 [Rx Confirmed 11/09/22] pantoprazole 40 mg tablet,delayed release 40 mg PO DAILY #90 tabs 11/05/22 [Rx Confirmed 11/09/22] paroxetine HCl 40 mg tablet 40 mg PO QAM #90 tabs 11/05/22 [Rx Confirmed 11/09/22] potassium chloride 20 mEq tablet,extended release 20 meq PO QAM #90 tabs 11/05/22 [Rx Confirmed 11/09/22] tamsulosin 0.4 mg capsule 0.4 mg PO HS #90 caps 11/05/22 [Rx Confirmed 11/09/22] furosemide 40 mg tablet (Lasix) 40 mg PO DAILY 11/09/22 [History Confirmed 11/09/22] loratadine 10 mg tablet 10 mg PO DAILY 11/09/22 [History Confirmed 11/09/22] Home Medications Acetaminophen (Acetaminophen 500 Mg Tab) 1,000 mg PO TID PRN PRN Reason: fever or pain Stop: 12/10/22 00:46 Albuterol (Albut/Ipratrop 3mg/0.5mg Neb 3 Ml Vial) 3 ml NEB Q2H PRN; Protocol PRN Reason: dyspnea Stop: 12/10/22 03:10 Aspirin (Aspirin 81 Mg Ectab) 81 mg PO DAILY [facility] Stop: 12/10/22 08:59 Last Admin: 11/10/22 08:23 Dose: 81 mg Atorvastatin Calcium (Atorvastatin 40 Mg Tab) 80 mg PO HS [facility] Stop: 12/10/22 20:59 Bupropion HCl (Bupropion Xl 150 Mg Tabcr) 150 mg PO QAM [facility] Stop: 12/10/22 08:59 Last Admin: 11/10/22 08:22 Dose: 150 mg Furosemide (Furosemide 40 Mg/4 Ml Vial) 40 mg IV QAM [facility] Stop: 12/10/22 08:59 Last Admin: 11/10/22 08:22 Dose: 40 mg Furosemide (Furosemide 40 Mg Tab) 40 mg PO DAILY [facility] Stop: 12/10/22 08:59 Heparin Sodium (Porcine) (Heparin Sod 5,000 Unit/0.5 Ml Vial) 5,000 units SQ Q12 [facility] Stop: 12/10/22 08:59 Last Admin: 11/10/22 08:24 Dose: 5,000 units Cefepime HCl 2,000 mg/ Syringe 20 mls @ 5 mls/min IV Q12H [facility]; Protocol Stop: 11/17/22 08:59 Last Admin: 11/10/22 08:26 Dose: 5 mls/min Azithromycin 500 mg/ Dextrose 255 mls @ 125 mls/hr IV Q24H [facility] Stop: 11/18/22 01:59 Loratadine (Loratadine 10 Mg Tab) 10 mg PO DAILY [facility] Stop: 12/10/22 08:59 Last Admin: 11/10/22 08:22 Dose: 10 mg Metoprolol Succinate (Metoprolol Succ 25mg Ext Rel Tab) 12.5 mg PO QAM [facility] Stop: 12/10/22 08:59 Last Admin: 11/10/22 08:23 Dose: 12.5 mg Ondansetron HCl (Ondansetron Inj 2 Mg/Ml 2 Ml Vial) 4 mg IV Q6H PRN PRN Reason: Nausea Stop: 12/10/22 00:46 Pantoprazole Sodium (Pantoprazole 40 Mg Tab) 40 mg PO DAILY [facility] Stop: 12/10/22 08:59 Last Admin: 11/10/22 08:23 Dose: 40 mg Paroxetine HCl (Paroxetine Hcl 20 Mg Tab) 40 mg PO QAM [facility] Stop: 12/10/22 08:59 Last Admin: 11/10/22 08:23 Dose: 40 mg Potassium Chloride (Potassium Chloride Crtab 20 Meq Tabcr) 20 meq PO QAM [facility] Stop: 12/10/22 08:59 Last Admin: 11/10/22 08:23 Dose: 20 meq Tamsulosin HCl (Tamsulosin Hcl 0.4 Mg Cap) 0.4 mg PO HS [facility] Stop: 12/10/22 20:59 PG Care Time/CCT Total # of Minutes Spent Total Time Spent with Patient: Total time spent is greater than 50% in coordination of care (as documented) at patient's floor/unit and/or counseling patient:38 [place] [address] INT INP/OBS CARE 2/55MIN Patient Type Established History Comprehensive Exam Comprehensive Medical Decision Making Moderate Complexity Diagnoses Pneumonia of right lower lobe due to infectious organism J18.9 (HFpEF) heart failure with preserved ejection fraction I50.30 Aortic stenosis, severe I35.0 CAD (coronary artery disease) I25.10 Hypotension I95.9 MVP (mitral valve prolapse) I34.1 Mitral regurgitation I34.0 Dyslipidemia E78.5 Time Spent (min) 62
--- NOTE | 2022-11-10 11:13 | Hospitalist Progress Note ---
Date of Service November 10, 2022 Assessment & Plan (1) Pneumonia of right lower lobe due to infectious organism: Plan: Patient presents to the hospital on account of worsening SOB Found to have right lobar consolidation, suspicious for PNA Blood cultures were obtained He has been empirically started on Cefepime and Azithromycin (2) Acute on chronic heart failure with preserved ejection fraction (HFpEF): Plan: Secondary to severe aortic stenosis Will continue diuretics, monitor I/O daily weight Plan is for TAVR at [facility] on 11/19 (3) Aortic stenosis, severe: Plan: He is scheduled to undergo TAVR at [facility] on 11/19 (4) EVELYN (acute kidney injury): Plan: Acute kidney injury on CKD- Creatinine 1.59, with base range 1.18-1.39 Some improvement in cr following diuresis Follow closely while diuresing (5) BPH with obstruction/lower urinary tract symptoms: Plan: BPH with LUTS- Continue tamsulosin at bedtime (6) Hypertension: Plan: BP is under good control continue home meds (7) Trigeminal neuralgia: (8) PAF (paroxysmal atrial fibrillation): (9) Dyslipidemia: (10) CAD (coronary artery disease): (11) Pulmonary hypertension: (12) (HFpEF) heart failure with preserved ejection fraction: Plan continue hospitalization, hopefully discharge in the next 48 hrs Admission and Anticipated Discharge Date Admission Date: November 09, 2022 Subjective patient seen and examined, said his SOB is slightly better Review of Systems Review of Systems: All systems reviewed are negative, apart from the ones contained in the history. Physical Exam Physical Exam: The patient is awake, alert and oriented 3, well developed and well nourished, normocephalic and atraumatic, lying in bed and in no acute distress. HEENT--PERRL, EOMI, mucous membranes and oropharynx mildly dry Neck--supple. No JVD. No bruits. Thyroid normal, trachea midline, no adenopathy. Heart--normal S1 and S2. LARISSA Lungs--clear bilaterally, no respiratory distress, no accessory muscle use. Abdomen--normal bowel sounds and soft. Mild epigastric and left sided abdominal pain Extremities--no cyanosis or clubbing. No edema. Dermatologic--normal skin turgor, normal color, no abnormal lymph nodes, no rash. Neurologic--cranial nerves II through XII grossly intact. Rheumatologic--normal range of motion. Psychiatric--normal affect. Results & Data Results & Data Vital Signs (Past 12 Hours) Vital Signs Temp Pulse Pulse Resp BP BP BP 11/10/22 10:48 97.5 F L 90 17 109/74 11/10/22 08:00 11/10/22 08:36 97.5 F L 92 H 18 115/79 11/10/22 03:12 97.7 F 91 H 20 109/74 11/10/22 02:24 97.2 F L 100 H 16 99/68 L 11/10/22 02:23 97.2 F L 100 H 16 99/68 L 11/10/22 01:07 89 11/10/22 00:53 11/10/22 00:11 86 20 122/93 11/10/22 00:00 90 25 H 122/93 11/09/22 23:30 86 25 H 119/84 Pulse Ox O2 Del Method O2 Flow Rate 11/10/22 10:48 97 Room Air 11/10/22 08:00 Nasal Cannula 2 11/10/22 08:36 95 Room Air 11/10/22 03:12 98 Nasal Cannula 3.0 11/10/22 02:24 98 Room Air 11/10/22 02:23 98 Nasal Cannula 3 11/10/22 01:07 11/10/22 00:53 Nasal Cannula 2 11/10/22 00:11 98 Nasal Cannula 2 11/10/22 00:00 97 Nasal Cannula 2 11/09/22 23:30 96 Nasal Cannula 2 PG Care Time/CCT Total # of Minutes Spent Total Time Spent with Patient: Total time spent is greater than 50% in coordination of care (as documented) at patient's floor/unit and/or counseling patient: Coding Level of Care Code 05882 SUB INP/OBS CARE 2/35MIN Diagnoses Pneumonia of right lower lobe due to infectious organism J18.9 Acute on chronic heart failure with preserved ejection fraction (HFpEF) I50.33 Aortic stenosis, severe I35.0 EVELYN (acute kidney injury) N17.9 BPH with obstruction/lower urinary tract symptoms N40.1; N13.8 Hypertension I10 Trigeminal neuralgia G50.0 PAF (paroxysmal atrial fibrillation) I48.0 Dyslipidemia E78.5 CAD (coronary artery disease) I25.10 Pulmonary hypertension I27.20 (HFpEF) heart failure with preserved ejection fraction I50.30 Time Spent (min) 35
--- NOTE | 2022-11-10 12:21 | Electrocardiogram Report ---
Test Reason : Blood Pressure : / mmHG Vent. Rate : 085 BPM Atrial Rate : 085 BPM P-R Int : 214 ms QRS Dur : 112 ms QT Int : 414 ms P-R-T Axes : 084 073 255 degrees QTc Int : 492 ms Sinus rhythm with 1st degree A-V block Incomplete right bundle branch block Prolonged QT Abnormal ECG When compared with ECG of 07-OCT-2022 17:43, Incomplete right bundle branch block is now Present Confirmed by Toñito Paige ([id number]) on 11/10/2022 12:21:23 PM Referred By: REFERRED SELF Confirmed By:Toñito Paige
--- NOTE | 2022-11-10 12:24 | Electrocardiogram Report ---
Test Reason : Blood Pressure : / mmHG Vent. Rate : 086 BPM Atrial Rate : 086 BPM P-R Int : 226 ms QRS Dur : 124 ms QT Int : 410 ms P-R-T Axes : 061 083 202 degrees QTc Int : 490 ms Sinus rhythm with marked sinus arrhythmia with 1st degree A-V block Right bundle branch block T wave abnormality, consider lateral ischemia Abnormal ECG When compared with ECG of 09-NOV-2022 21:04, (unconfirmed) No significant change was found Confirmed by Toñito Paige ([id number]) on 11/10/2022 12:23:42 PM Referred By: REFERRED SELF Confirmed By:Toñito Paige
[2022-11-10] MEDS: TAMSULOSIN HCL 0.4 MG CAP PO SCH (20:25)
[2022-11-10] MEDS: ATORVASTATIN 40 MG TAB PO SCH (20:26)
[2022-11-11] MEDS: AZITHROMYCIN 500 MG in DEXTROSE 5% 250 ML IV SCH (03:33)
[2022-11-11 07:13] LABS: Basophils # (auto) 0.08 K/uL (0-0.2); Basophils % (auto) 1.4 %; Eosinophils # (auto) 0.14 K/uL (0-0.50); Eosinophils % (auto) 2.4 %; Hematocrit (blood only) 42.6 % (42.0-52.0); Hemoglobin 13.5 g/dl (14.0-18.0); Immature Granulocytes # (auto) 0.08 K/uL (0.01-0.20); Immature Granulocytes % (auto) 1.4 %; Lymphocytes # (auto) 0.98 K/uL (1.2-3.4); Lymphocytes % (auto) 16.7 %; Mean Corpuscular Hgb Conc 31.7 g/dL (32.0-36.0); Mean Corpuscular Volume 97.9 fL (80.0-100.0); Mean Platelet Volume 10.2 fL (9.4-12.4); Monocytes # (auto) 0.55 K/uL (0.11-0.59); Monocytes % (auto) 9.4 %; Neutrophils # (auto) 4.05 K/uL (1.40-6.50); Neutrophils % (auto) 68.7 %; Platelet Count 167 K/uL (130-400); RDW Coefficient of Variation 17.5 % (11.5-14.5); RDW Standard Deviation 63.4 fL (36.4-46.3); Red Blood Count 4.35 M/uL (4.70-6.10); White Blood Count 5.88 K/ul (4.8-10.8)
[2022-11-11 07:39] LABS: Albumin Globulin Ratio 1.4 (0.9-2); Albumin Level 3.6 gm/dl (3.4-5.0); BUN Creatinine Ratio 20.5 (10-20); Bilirubin,Total 1.1 mg/dl (0.2-1.0); Calcium 9.3 mg/dl (8.6-10.3); Creatinine Clr Calc Pharmacy 45.4 ml/min; Est GFR (Non-African American) 44.9 ml/min; Globulin 2.5 gm/dl (2.5-4.0); Magnesium 1.9 mg/dl (1.7-2.4); Potassium 3.6 mmol/L (3.5-5.1); Total Protein 6.1 gm/dl (6.0-8.3)
[2022-11-11] MEDS: POTASSIUM CHLORIDE CRTAB 20 MEQ TABCR PO SCH (08:55)
[2022-11-11] MEDS: LORATADINE 10 MG TAB PO SCH (08:56)
[2022-11-11] MEDS: ASPIRIN 81 MG ECTAB PO SCH (08:56)
[2022-11-11] MEDS: buPROPion XL 150 MG TABCR PO SCH (08:56)
[2022-11-11] MEDS: PANTOprazole 40 MG TAB PO SCH (08:56)
[2022-11-11] MEDS: METOPROLOL SUCC 25MG EXT REL TAB PO SCH (08:56)
[2022-11-11] MEDS: PARoxetine HCL 20 MG TAB PO SCH (08:58)
[2022-11-11] MEDS: HEPARIN SOD 5,000 UNIT/0.5 ML VIAL SQ SCH ×2 (08:58→20:26)
[2022-11-11] MEDS: FUROSEMIDE 40 MG/4 ML VIAL IV SCH (08:59)
[2022-11-11] MEDS: CEFEPIME 2,000 MG in SYRINGE 0 ML IV SCH ×2 (09:00→20:32)
--- NOTE | 2022-11-11 09:33 | Cardiology Progress Note ---
Date of Service November 11, 2022 Assessment & Plan (1) Pneumonia of right lower lobe due to infectious organism: (2) (HFpEF) heart failure with preserved ejection fraction: (3) Aortic stenosis, severe: (4) CAD (coronary artery disease): (5) Hypotension: (6) MVP (mitral valve prolapse): (7) Mitral regurgitation: (8) Dyslipidemia: Plan Mr. Snyder is being seen in room 230-2 who was admitted with a suspected RLL pneumonia, CHF with a right pleural effusion. His SOB has improved although he still sleeps in a semi-recumbent position because if he lies down he gets SOB. He denies any syncope or near syncope but he has not been up and out of bed yet today. Patient has been very limited his activities due to lightheadedness and dyspnea secondary Severe -- so he essentially spends his days doing things from his wheelchair. Patient has not experienced any angina pectoris or anginal equivalent symptoms, nor has he had any symptoms or evidence of any arrhythmias while here. Although his troponin I levels are elevated, they are not consistent with an acute coronary syndrome because they are not trending 1 way or the other. Most likely this is secondary to EVELYN. A Patient is getting IV Lasix 40 mg daily and his I&O's show a negative fluid balance of 20 mL since being admitted but his weight is down 0.4 kg from yesterday. His Creatinine has improved from 1.59 mg/dL on admission and it was down to 1.50 mg/dL yesterday, and today it is 1.51 mg/dL. Applications Programmer shows a NSR in the 80's and 90's with a 1st degree AV block and an IVCD with occasional ectopy. Patient was hospitalized at [facility] on 10/07/22 after presenting with Syncopal Episodes secondary to Symptomatic and Severe Aortic Stenosis. Supportive measures were taken, adjustments to medications to maintain his blood pressure. His Amlodipine is on hold. He was evaluated by Cardiothoracic Surgery at [facility] on 09/30/22 to discuss surgical AVR and revascularization options. He was evaluated by Interventional Cardiology/TAVR team on 10/27/22 to discuss TAVR/Catheter Based Revascularization. His TAVR and catheter based revascularization is scheduled on 11/18/22. Recommend the followin. Monitor daily body weights and I&O's. 2. Avoid dehydrating the patient, continue gentle diuresis until creatinine climbs or patient's systolic blood pressure is consistently < 110 mmHg. 3. The tobar to managing this patient's heart failure is to undergo TAVR and catheter based revascularization which is scheduled on 11/18/22 at [facility]. 4. Minimize standing or walking until after TAVR completed due to his risk of syncope/hypotension secondary to severe . 5. Continue Aspirin 81 mg daily. 6. Continue Atorvastatin 80 mg daily. 7. Continue Toprol XL 12.5 mg daily. 8. Continue supplemental oxygen - currently on O2 at 2 L/min via [place]. 9. Monitor daily laboratories. Electrolytes are within normal limits today. Serum creatinine is at 1.51 mg/dL. 10. Continue to treat underlying suspected pneumonia with IV Cefepime 2 g every 12 hours and IV Azithromycin 500 mg daily. We will continue to follow this patient along while hospitalized and afterwards. Patient agrees with this plan. Admission and Anticipated Discharge Date Admission Date: November 09, 2022 Subjective Mr. Snyder is being seen in room 230-2 who was admitted with a suspected RLL pneumonia, CHF with a right pleural effusion. His SOB has improved although he still sleeps in a semi-recumbent position because if he lies down he gets SOB. He denies any syncope or near syncope but he has not been up and out of bed yet today. Patient has been very limited his activities due to lightheadedness and dyspnea secondary Severe -- so he essentially spends his days doing things from his wheelchair. He denies any exertional chest pain, heaviness, tightness, pressure, or discomfort. He has not had any exertional neck, jaw, back, or arm pain. Patient is getting IV Lasix 40 mg daily and his I&O's show a negative fluid balance of 20 mL since being admitted but his weight is down 0.4 kg from yesterday. His Creatinine has improved from 1.59 mg/dL on admission and it was down to 1.50 mg/dL yesterday, and today it is 1.51 mg/dL. Applications Programmer shows a NSR in the 80's and 90's with a 1st degree AV block and an IVCD with occasional ectopy. Patient was hospitalized at [facility] on 10/07/22 after presenting with Syncopal Episodes secondary to Symptomatic and Severe Aortic Stenosis. Supportive measures were taken, adjustments to medications to maintain his blood pressure. His Amlodipine is on hold. He was evaluated by Cardiothoracic Surgery at [facility] on 09/30/22 to discuss surgical AVR and revascularization options. He was evaluated by Interventional Cardiology/TAVR team on 10/27/22 to discuss TAVR/Catheter Based Revascularization. His TAVR and catheter based revascularization is scheduled on 11/18/22. Review of Systems Review of Systems: -- He denies any fever, chills, or night sweats. -- He denies any focal abdominal pain. -- 10 point ROS completed and is negative with the exception of what is mentioned in the HPI. Physical Exam Physical Exam: Blood pressure is 103/74. Pulse 85 and regular. GENERAL: Patient in no acute distress. Bilateral hearing aids/cochlear implants present. Patient lying in his bed in a semirecumbent position. HEENT: Facies symmetric. EOM's intact. No perioral cyanosis. NECK: No JVD. JVP is just above the clavicle sitting upright. CHEST/LUNGS: Absent breath sounds in the right base. Left base is clear. CVS: S1 and S2 are regular with with a grade 2-3/6 crescendo decrescendo basal systolic murmur heard best over the right 2nd intercostal space, there is also a grade 2/6 apical systolic murmur which radiates to the axilla. No obvious diasto lic murmurs. No gallops or rubs. PMI is nonpalpable. No lifts, heaves, or thrills. No abdominal aortic or renal bruits. ABDOMINAL EXAM: Bowel sounds are present. No masses, organomegaly, or tend erness. EXTREMITIES: No clubbing or cyanosis. Trace bipedal edema. Intact radial pulses bilaterally. NEUROLOGIC EXAM: Patient is awake, alert, and oriented. Pleasant and cooperative. Answers questions appropriately. Speech is clear. SALES AND MARKETING ASSISTANT: -- NSR in the 80's and 90's with a 1st degree AVB and an IVCD and occasional ectopy. Results & Data Vital Signs (Past 12 Hours) Vital Signs Temp Pulse Pulse Resp BP Pulse Ox O2 Del Method 11/11/22 07:29 36.4 C L 92 H 18 103/74 96 Nasal Cannula 11/11/22 03:01 36.5 C 86 18 120/86 91 Nasal Cannula 11/11/22 00:14 68 11/10/22 23:01 36.5 C 90 18 126/91 94 Nasal Cannula 11/10/22 22:29 Nasal Cannula O2 Flow Rate 11/11/22 07:29 2.0 11/11/22 03:01 2 11/11/22 00:14 11/10/22 23:01 2 11/10/22 22:29 2 Laboratory Results Laboratory Results - last 24 hr 11/10/22 11/10/22 11/11/22 12:44 Unknown 06:22 WBC 5.88 RBC 4.35 L Hgb 13.5 L Hct 42.6 MCV 97.9 MCH 31.0 MCHC 31.7 L RDW Std Deviation 63.4 H RDW Coeff of Herrera 17.5 H Plt Count 167 MPV 10.2 Immature Gran % (Auto) 1.4 Neut % (Auto) 68.7 Lymph % (Auto) 16.7 Deuel % (Auto) 9.4 Eos % (Auto) 2.4 Baso % (Auto) 1.4 Neut # (Auto) 4.05 Lymph # (Auto) 0.98 L Deuel # (Auto) 0.55 Eos # (Auto) 0.14 Baso # (Auto) 0.08 Immature Gran # (Auto) 0.08 Sodium Potassium Chloride Carbon Dioxide Anion Gap BUN Creatinine Est Cr Clr Drug Dosing Est GFR ( Amer) Est GFR (Non-Af Amer) BUN/Creatinine Ratio Glucose Calcium Magnesium Total Bilirubin AST ALT Alkaline Phosphatase Troponin I High Sens 45.8 H Total Protein Albumin Globulin Albumin/Globulin Ratio Nasal Screen MRSA (PCR) Negative 11/11/22 06:22 WBC RBC Hgb Hct MCV MCH MCHC RDW Std Deviation RDW Coeff of Herrera Plt Count MPV Immature Gran % (Auto) Neut % (Auto) Lymph % (Auto) Deuel % (Auto) Eos % (Auto) Baso % (Auto) Neut # (Auto) Lymph # (Auto) Deuel # (Auto) Eos # (Auto) Baso # (Auto) Immature Gran # (Auto) Sodium 140 Potassium 3.6 Chloride 105 Carbon Dioxide 27 Anion Gap 8 BUN 31 H Creatinine 1.51 H Est Cr Clr Drug Dosing 45.4 Est GFR ( Amer) 52.0 Est GFR (Non-Af Amer) 44.9 BUN/Creatinine Ratio 20.5 H Glucose 98 Calcium 9.3 Magnesium 1.9 Total Bilirubin 1.1 H AST 39 ALT 42 Alkaline Phosphatase 131 H Troponin I High Sens Total Protein 6.1 Albumin 3.6 Globulin 2.5 Albumin/Globulin Ratio 1.4 Nasal Screen MRSA (PCR) Medications Administered Medications acetaminophen 500 mg tablet 1,000 mg PO TID PRN fever or pain #90 tabs 11/18/18 [Rx Confirmed 11/09/22] aspirin 81 mg tablet,delayed release 81 mg PO DAILY #90 tabs 06/09/22 [Rx Confirmed 11/09/22] metoprolol succinate 25 mg tablet,extended release 24 hr 12.5 mg PO QAM #30 tabs 08/22/22 [Rx Confirmed 11/09/22] Wheelchair (Manual) #1 ea 09/17/22 [Rx Confirmed 11/09/22] Oxygen Home #1 ea 10/12/22 [Rx Confirmed 11/09/22] atorvastatin 80 mg tablet 80 mg PO HS #90 tabs 11/05/22 [Rx Confirmed 11/09/22] bupropion HCl 150 mg 24 hr tablet, extended release (Wellbutrin XL) 150 mg PO QAM #90 tabs 11/05/22 [Rx Confirmed 11/09/22] fluticasone propionate 50 mcg/actuation nasal spray,suspension (Flonase Allergy Relief) 2 spray intranasal DAILY #48 grams 11/05/22 [Rx Confirmed 11/09/22] pantoprazole 40 mg tablet,delayed release 40 mg PO DAILY #90 tabs 11/05/22 [Rx Confirmed 11/09/22] paroxetine HCl 40 mg tablet 40 mg PO QAM #90 tabs 11/05/22 [Rx Confirmed ] potassium chloride 20 mEq tablet,extended release 20 meq PO QAM #90 tabs 11/05/22 [Rx Confirmed 11/09/22] tamsulosin 0.4 mg capsule 0.4 mg PO HS #90 caps 11/05/22 [Rx Confirmed 11/09/22] furosemide 40 mg tablet (Lasix) 40 mg PO DAILY 11/09/22 [History Confirmed 11/09/22] loratadine 10 mg tablet 10 mg PO DAILY 11/09/22 [History Confirmed 11/09/22] Home Medications Acetaminophen (Acetaminophen 500 Mg Tab) 1,000 mg PO TID PRN PRN Reason: fever or pain Stop: 12/10/22 00:46 Albuterol (Albut/Ipratrop 3mg/0.5mg Neb 3 Ml Vial) 3 ml NEB Q2H PRN; Protocol PRN Reason: dyspnea Stop: 12/10/22 03:10 Aspirin (Aspirin 81 Mg Ectab) 81 mg PO DAILY [facility] Stop: 12/10/22 08:59 Last Admin: 11/11/22 08:56 Dose: 81 mg Atorvastatin Calcium (Atorvastatin 40 Mg Tab) 80 mg PO HS [facility] Stop: 12/10/22 20:59 Last Admin: 11/10/22 20:26 Dose: 80 mg Bupropion HCl (Bupropion Xl 150 Mg Tabcr) 150 mg PO QAM [facility] Stop: 12/10/22 08:59 Last Admin: 11/11/22 08:56 Dose: 150 mg Furosemide (Furosemide 40 Mg/4 Ml Vial) 40 mg IV QAM [facility] Stop: 12/10/22 08:59 Last Admin: 11/11/22 08:59 Dose: 40 mg Furosemide (Furosemide 40 Mg Tab) 40 mg PO DAILY [facility] Stop: 12/10/22 08:59 Heparin Sodium (Porcine) (Heparin Sod 5,000 Unit/0.5 Ml Vial) 5,000 units SQ Q12 [facility] Stop: 12/10/22 08:59 Last Admin: 11/11/22 08:58 Dose: 5,000 units Cefepime HCl 2,000 mg/ Syringe 20 mls @ 5 mls/min IV Q12H [facility]; Protocol Stop: 11/17/22 08:59 Last Admin: 11/11/22 09:00 Dose: 5 mls/min Azithromycin 500 mg/ Dextrose 255 mls @ 125 mls/hr IV Q24H [facility] Stop: 11/18/22 01:59 Last Infusion: 11/11/22 05:50 Dose: Infused Loratadine (Loratadine 10 Mg Tab) 10 mg PO DAILY [facility] Stop: 12/10/22 08:59 Last Admin: 11/11/22 08:56 Dose: 10 mg Metoprolol Succinate (Metoprolol Succ 25mg Ext Rel Tab) 12.5 mg PO QAM [facility] Stop: 12/10/22 08:59 Last Admin: 11/11/22 08:56 Dose: 12.5 mg Ondansetron HCl (Ondansetron Inj 2 Mg/Ml 2 Ml Vial) 4 mg IV Q6H PRN PRN Reason: Nausea Stop: 12/10/22 00:46 Pantoprazole Sodium (Pantoprazole 40 Mg Tab) 40 mg PO DAILY [facility] Stop: 12/10/22 08:59 Last Admin: 11/11/22 08:56 Dose: 40 mg Paroxetine HCl (Paroxetine Hcl 20 Mg Tab) 40 mg PO QAM [facility] Stop: 12/10/22 08:59 Last Admin: 11/11/22 08:58 Dose: 40 mg Potassium Chloride (Potassium Chloride Crtab 20 Meq Tabcr) 20 meq PO QAM [facility] Stop: 12/10/22 08:59 Last Admin: 11/11/22 08:55 Dose: 20 meq Tamsulosin HCl (Tamsulosin Hcl 0.4 Mg Cap) 0.4 mg PO HS [facility] Stop: 12/10/22 20:59 Last Admin: 11/10/22 20:25 Dose: 0.4 mg PG Care Time/CCT Total # of Minutes Spent Total Time Spent with Patient: Total time spent is greater than 50% in coordination of care (as documented) at patient's floor/unit and/or counseling patient:31 C[place] [address] SUB INP/OBS CARE 3/50MIN Patient Type Established History Detailed Exam Detailed Medical Decision Making Moderate Complexity Diagnoses Pneumonia of right lower lobe due to infectious organism J18.9 (HFpEF) heart failure with preserved ejection fraction I50.30 Aortic stenosis, severe I35.0 CAD (coronary artery disease) I25.10 Hypotension I95.9 MVP (mitral valve prolapse) I34.1 Mitral regurgitation I34.0 Dyslipidemia E78.5 Time Spent (min) 53
--- NOTE | 2022-11-11 15:45 | Electrocardiogram Report ---
Test Reason : Blood Pressure : / mmHG Vent. Rate : 090 BPM Atrial Rate : 090 BPM P-R Int : 220 ms QRS Dur : 114 ms QT Int : 392 ms P-R-T Axes : 064 078 -79 degrees QTc Int : 479 ms Sinus rhythm with 1st degree A-V block with Premature atrial complexes Incomplete right bundle branch block Prolonged QT Abnormal ECG When compared with ECG of 10-NOV-2022 05:09, Premature atrial complexes are now Present Confirmed by Toñito Paige ([id number]) on 11/11/2022 3:44:53 PM Referred By: REFERRED SELF Confirmed By:Toñito Paige
--- NOTE | 2022-11-11 17:22 | Hospitalist Progress Note ---
Date of Service November 11, 2022 Assessment & Plan (1) Pneumonia of right lower lobe due to infectious organism: Plan: Patient presents to the hospital on account of worsening SOB Found to have right lobar consolidation, suspicious for PNA Blood cultures were obtained He has been empirically started on Cefepime and Azithromycin-we will continue such No fevers or leukocytosis or productive sputum (2) Acute on chronic heart failure with preserved ejection fraction (HFpEF): Plan: Secondary to severe aortic stenosis, with acute respiratory failure with hypoxia Will continue diuretics, monitor I/O daily weight-weight down slightly but only net -500 so far Gentle diuresis given severe aortic stenosis-continue with Lasix 40 Mg IV once daily Plan is for TAVR at [facility] on 11/19 Daily weights, low-sodium diet Continue supplemental O2 and needs a two-step prior to discharge (3) Aortic stenosis, severe: Plan: He is scheduled to undergo TAVR at [facility] on 11/19 (4) EVELYN (acute kidney injury): Plan: Acute kidney injury on CKD- Creatinine 1.59, with base range 1.18-1.39-improved today to 1.5 Some improvement in cr following diuresis Follow closely while diuresing (5) BPH with obstruction/lower urinary tract symptoms: Plan: BPH with LUTS- Continue tamsulosin at bedtime (6) Hypertension: Plan: BP is under good control continue home meds (7) Trigeminal neuralgia: Plan: Not on medication for this currently (8) PAF (paroxysmal atrial fibrillation): Plan: Currently in sinus rhythm Only takes Eliquis when he feels he is in A-fib (9) Dyslipidemia: Plan: Continue atorvastatin (10) CAD (coronary artery disease): Plan: With cardiac cath 08/2022 with severe CAD involving proximal dominant left circumflex and proximal large caliber D1 Continue aspirin, statin, Toprol-XL Plan for revascularization at the time of her prior to aortic valve replacement (11) Pulmonary hypertension: Plan: Noted Wears CPAP with oxygen at nighttime Plan DVT prophylaxis-heparin SQ Disposition-continued stay in PCU, discharge to home when respiratory symptoms are improved after diuresis Possibly discharge in 1 to 2 days, will discuss with cardiology Admission and Anticipated Discharge Date Admission Date: November 09, 2022 Subjective Still feeling short of breath with ambulation. No chest pain. No other concerns. Telemetry with sinus rhythm history AV block and sinus tachycardia PACs, rates in the 80s to 90s Physical Exam Constitutional: WD/WN, vitals as above Respiratory: normal respiratory effort; no cough and not tachypneic Auscultation: + crackles (Bibasilar); no rhonchi and no wheezes Cardiovascular: Rate/Rhythm: regular rate and regular rhythm Heart Sounds: + murmur (3/6 LARISSA at the RUSB) Gastrointestinal (Abdomen): normal bowel sounds, soft, nontender, no h epatosplenomegaly Musculoskeletal: Extremities: extremities normal to inspection; no cyanosis and no clubbing Skin: no rashes, warm and dry Neurologic: moves all extremities and awake; no focal motor deficits Psychiatric: A+Ox3, euthymic affect Lymphatic: no lymphedema Results & Data Results & Data Vital Signs (Past 12 Hours) Vital Signs Temp Pulse Pulse Resp BP Pulse Ox O2 Del Method 11/11/22 16:00 95 H 11/11/22 15:06 36.4 C L 109 H 19 116/64 95 Nasal Cannula 11/11/22 12:36 Nasal Cannula 11/11/22 10:47 36.4 C L 91 H 18 128/83 98 Nasal Cannula 11/11/22 08:00 89 11/11/22 07:29 36.4 C L 92 H 18 103/74 96 Nasal Cannula O2 Flow Rate 11/11/22 16:00 11/11/22 15:06 2.0 11/11/22 12:36 2 11/11/22 10:47 2 11/11/22 08:00 11/11/22 07:29 2.0 Laboratory Results CBC, BMP, magnesium, LFTs all reviewed PG Care Time/CCT Total # of Minutes Spent Total Time Spent with Patient: Total time spent is greater than 50% in coordination of care (as documented) at patient's floor/unit and/or counseling patient: Coding Level of Care Code 14932 SUB INP/OBS CARE 3/50MIN Diagnoses Pneumonia of right lower lobe due to infectious organism J18.9 Acute on chronic heart failure with preserved ejection fraction (HFpEF) I50.33 Aortic stenosis, severe I35.0 EVELYN (acute kidney injury) N17.9 BPH with obstruction/lower urinary tract symptoms N40.1; N13.8 Hypertension I10 Trigeminal neuralgia G50.0 PAF (paroxysmal atrial fibrillation) I48.0 Dyslipidemia E78.5 CAD (coronary artery disease) I25.10 Pulmonary hypertension I27.20
[2022-11-11] MEDS: TAMSULOSIN HCL 0.4 MG CAP PO SCH (20:26)
[2022-11-11] MEDS: ATORVASTATIN 40 MG TAB PO SCH (20:27)
[2022-11-12] MEDS: AZITHROMYCIN 500 MG in DEXTROSE 5% 250 ML IV SCH (02:50)
[2022-11-12 07:24] LABS: Basophils # (auto) 0.09 K/uL (0-0.2); Basophils % (auto) 1.7 %; Eosinophils # (auto) 0.21 K/uL (0-0.50); Eosinophils % (auto) 3.9 %; Hematocrit (blood only) 41.9 % (42.0-52.0); Hemoglobin 13.4 g/dl (14.0-18.0); Immature Granulocytes # (auto) 0.03 K/uL (0.01-0.20); Immature Granulocytes % (auto) 0.6 %; Lymphocytes # (auto) 0.92 K/uL (1.2-3.4); Lymphocytes % (auto) 17.2 %; Mean Corpuscular Hemoglobin 31.3 pg (25.0-34.0); Mean Corpuscular Volume 97.9 fL (80.0-100.0); Mean Platelet Volume 10.6 fL (9.4-12.4); Monocytes # (auto) 0.51 K/uL (0.11-0.59); Monocytes % (auto) 9.5 %; Neutrophils % (auto) 67.1 %; Nucleated RBC # (auto) 0.02 K/uL (0-0.12); Nucleated RBC % (auto) 0.4 %; Platelet Count 168 K/uL (130-400); RDW Coefficient of Variation 17.5 % (11.5-14.5); RDW Standard Deviation 62.3 fL (36.4-46.3); Red Blood Count 4.28 M/uL (4.70-6.10); White Blood Count 5.36 K/ul (4.8-10.8)
[2022-11-12 07:39] LABS: Albumin Globulin Ratio 1.3 (0.9-2); Albumin Level 3.5 gm/dl (3.4-5.0); BUN Creatinine Ratio 21.2 (10-20); Bilirubin,Total 1.1 mg/dl (0.2-1.0); Calcium 9.3 mg/dl (8.6-10.3); Est GFR (African American) 54.1 ml/min; Est GFR (Non-African American) 46.7 ml/min; Globulin 2.7 gm/dl (2.5-4.0); Magnesium 1.9 mg/dl (1.7-2.4); Potassium 3.8 mmol/L (3.5-5.1); Total Protein 6.2 gm/dl (6.0-8.3)
[2022-11-12] MEDS: PANTOprazole 40 MG TAB PO SCH (08:40)
[2022-11-12] MEDS: METOPROLOL SUCC 25MG EXT REL TAB PO SCH (08:40)
[2022-11-12] MEDS: buPROPion XL 150 MG TABCR PO SCH (08:40)
[2022-11-12] MEDS: HEPARIN SOD 5,000 UNIT/0.5 ML VIAL SQ SCH ×2 (08:40→20:02)
[2022-11-12] MEDS: FUROSEMIDE 40 MG/4 ML VIAL IV SCH ×2 (08:40→16:46)
[2022-11-12] MEDS: POTASSIUM CHLORIDE CRTAB 20 MEQ TABCR PO SCH (08:40)
[2022-11-12] MEDS: PARoxetine HCL 20 MG TAB PO SCH (08:40)
[2022-11-12] MEDS: LORATADINE 10 MG TAB PO SCH (08:41)
[2022-11-12] MEDS: ASPIRIN 81 MG ECTAB PO SCH (08:41)
[2022-11-12] MEDS: CEFEPIME 2,000 MG in SYRINGE 0 ML IV SCH ×2 (08:43→20:02)
[2022-11-12] MEDS ORDERED: MAGNESIUM SULFATE / D5W 1 GM/100 ML BAG IV ONE (10:45)
[2022-11-12] MEDS ORDERED: POTASSIUM CHLORIDE CRTAB 20 MEQ TABCR PO ONE (10:45)
--- NOTE | 2022-11-12 16:34 | Hospitalist Progress Note ---
Date of Service November 12, 2022 Assessment & Plan (1) Acute on chronic heart failure with preserved ejection fraction (HFpEF): Plan: Secondary to severe aortic stenosis, with acute respiratory failure with hypoxia-requiring 2LNC Will continue diuretics, monitor I/O daily weight-weight down slightly but I/Os just about even Gentle diuresis given severe aortic stenosis-will increase Lasix 40 Mg IV to bid as d/w Cardiology Renal function stbale Plan is for TAVR at [place] on 11/19 Daily weights, change det to low-sodium diet and add fluid restriction of 1500mL Continue supplemental O2 and needs a two-step prior to discharge (2) Pneumonia of right lower lobe due to infectious organism: Plan: Patient presents to the hospital on account of worsening SOB Found to have right lobar consolidation, suspicious for PNA Blood cultures were obtained-NGTD He has been empirically started on Cefepime and Azithromycin-we will continue such to cover for Gram negative PNA and atypicals given recent hospitalizations No fevers or leukocytosis or productive sputum (3) Aortic stenosis, severe: Plan: He is scheduled to undergo TAVR at [place] on 11/19 The patient requires the head of the bed to be elevated more than 30 degrees most of the time due to congestive heart failure. Pillows or wedges have been considered and ruled out as they do not help him. He requires the need for frequent changes in body position to avoid bedsores. He is recommended to not move out of bed much until after his aortic valve replacement due to history of syncope from severe aortic stenosis. (4) EVELYN (acute kidney injury): Plan: Acute kidney injury on CKD- Creatinine 1.59, with base range 1.18-1.39-improved today to 1.4 Some improvement in cr following diuresis Follow closely while diuresing (5) BPH with obstruction/lower urinary tract symptoms: Plan: BPH with LUTS- Continue tamsulosin at bedtime (6) Hypertension: Plan: BP is under good control continue home meds (7) Trigeminal neuralgia: Plan: Not on medication for this currently (8) PAF (paroxysmal atrial fibrillation): Plan: Currently in sinus rhythm Only takes Eliquis when he feels he is in A-fib (9) Dyslipidemia: Plan: Continue atorvastatin (10) CAD (coronary artery disease): Plan: With cardiac cath 08/2022 with severe CAD involving proximal dominant left circumflex and proximal large caliber D1 Continue aspirin, statin, Toprol-XL Plan for revascularization at the time of her prior to aortic valve replacement (11) Pulmonary hypertension: Plan: Noted Wears CPAP with oxygen at nighttime Plan DVT prophylaxis-heparin SQ Disposition-continued stay in PCU, discharge to home when respiratory symptoms are improved after diuresis Possibly discharge in 1 to 2 days Discussed care with and daughter at bedside on 11/11 and 11/12 Admission and Anticipated Discharge Date Admission Date: November 09, 2022 Subjective Still feeling SOB and has not gotten up and around at all today. Abdomen is feeling a little distended but he feels like he will move his bowels soon as he hasn't in 2 days. Tele with NSR, PVCs, PACs, rates 90s Discussed his care with Cardiology Physical Exam Constitutional: WD/WN, vitals as above Respiratory: normal respiratory effort; no cough and not tachypneic Auscultation: + crackles (Bibasilar); no rhonchi and no wheezes Cardiovascular: Rate/Rhythm: regular rate and regular rhythm Heart Sounds: + murmur (3/6 LARISSA at the RUSB) Gastrointestinal (Abdomen): normal bowel sounds, soft, nontender, no hepatosplenomegaly Inspection/Auscultation: + abdomen distended (mild) Musculoskeletal: Extremities: extremities normal to inspection; no cyanosis and no clubbing Skin: no rashes, warm and dry Neurologic: moves all extremities and awake; no focal motor deficits Psychiatric: A+Ox3, euthymic affect Lymphatic: no lymphedema Results & Data Results & Data Vital Signs (Past 12 Hours) Vital Signs Temp Pulse Pulse Resp BP Pulse Ox Pulse Ox 11/12/22 16:08 82 11/12/22 15:06 95 11/12/22 15:03 36.3 C L 70 16 115/81 94 11/12/22 11:14 36.3 C L 98 H 19 103/70 98 11/12/22 08:10 11/12/22 07:41 36.5 C 91 H 18 117/80 96 11/12/22 07:00 93 H Pulse Ox Pulse Ox O2 Del Method O2 Flow Rate O2 Flow Rate O2 Flow Rate O2 Flow Rate 11/12/22 16:08 11/12/22 15:06 95 95 2 2 2 11/12/22 15:03 Room Air 11/12/22 11:14 Nasal Cannula 2.0 11/12/22 08:10 Nasal Cannula 2 11/12/22 07:41 Nasal Cannula 2.0 11/12/22 07:00 Laboratory Results CBC, BMP, magnesium reviewed PG Care Time/CCT Total # of Minutes Spent Total Time Spent with Patient: Total time spent is greater than 50% in coordination of care (as documented) at patient's floor/unit and/or counseling patient: Coding Level of Care Code 43148 SUB INP/OBS CARE 3/50MIN Diagnoses Acute on chronic heart failure with preserved ejection fraction (HFpEF) I50.33 Pneumonia of right lower lobe due to infectious organism J18.9 Aortic stenosis, severe I35.0 EVELYN (acute kidney injury) N17.9 BPH with obstruction/lower urinary tract symptoms N40.1; N13.8 Hypertension I10 Trigeminal neuralgia G50.0 PAF (paroxysmal atrial fibrillation) I48.0 Dyslipidemia E78.5 CAD (coronary artery disease) I25.10 Pulmonary hypertension I27.20
[2022-11-12] MEDS: ATORVASTATIN 40 MG TAB PO SCH (20:01)
[2022-11-12] MEDS: TAMSULOSIN HCL 0.4 MG CAP PO SCH (20:01)
[2022-11-12] MEDS: SENNA 8.6 MG TAB PO PRN (21:06)
[2022-11-13] MEDS: AZITHROMYCIN 500 MG in DEXTROSE 5% 250 ML IV SCH (02:37)
[2022-11-13 07:37] LABS: Basophils # (auto) 0.09 K/uL (0-0.2); Basophils % (auto) 1.6 %; Eosinophils # (auto) 0.24 K/uL (0-0.50); Eosinophils % (auto) 4.2 %; Hematocrit (blood only) 39.1 % (42.0-52.0); Hemoglobin 12.7 g/dl (14.0-18.0); Immature Granulocytes # (auto) 0.03 K/uL (0.01-0.20); Immature Granulocytes % (auto) 0.5 %; Lymphocytes # (auto) 0.91 K/uL (1.2-3.4); Mean Corpuscular Hemoglobin 31.2 pg (25.0-34.0); Mean Corpuscular Hgb Conc 32.5 g/dL (32.0-36.0); Mean Corpuscular Volume 96.1 fL (80.0-100.0); Mean Platelet Volume 10.7 fL (9.4-12.4); Monocytes % (auto) 8.8 %; Neutrophils % (auto) 68.9 %; Platelet Count 169 K/uL (130-400); RDW Coefficient of Variation 17.2 % (11.5-14.5); RDW Standard Deviation 60.7 fL (36.4-46.3); Red Blood Count 4.07 M/uL (4.70-6.10); White Blood Count 5.67 K/ul (4.8-10.8)
[2022-11-13 08:02] LABS: Albumin Globulin Ratio 1.2 (0.9-2); Albumin Level 3.4 gm/dl (3.4-5.0); BUN Creatinine Ratio 20.7 (10-20); Bilirubin,Total 1.2 mg/dl (0.2-1.0); Creatinine Clr Calc Pharmacy 45.8 ml/min; Est GFR (African American) 52.4 ml/min; Est GFR (Non-African American) 45.2 ml/min; Globulin 2.8 gm/dl (2.5-4.0); Potassium 3.6 mmol/L (3.5-5.1); Total Protein 6.2 gm/dl (6.0-8.3)
[2022-11-13] MEDS: POTASSIUM CHLORIDE CRTAB 20 MEQ TABCR PO SCH (08:31)
[2022-11-13] MEDS: HEPARIN SOD 5,000 UNIT/0.5 ML VIAL SQ SCH ×2 (08:31→19:39)
[2022-11-13] MEDS: LORATADINE 10 MG TAB PO SCH (08:32)
[2022-11-13] MEDS: PANTOprazole 40 MG TAB PO SCH (08:32)
[2022-11-13] MEDS: ASPIRIN 81 MG ECTAB PO SCH (08:32)
[2022-11-13] MEDS: PARoxetine HCL 20 MG TAB PO SCH (08:32)
[2022-11-13] MEDS: buPROPion XL 150 MG TABCR PO SCH (08:32)
[2022-11-13] MEDS: METOPROLOL SUCC 25MG EXT REL TAB PO SCH (08:32)
[2022-11-13] MEDS: FUROSEMIDE 40 MG/4 ML VIAL IV SCH ×2 (08:33→16:18)
[2022-11-13] MEDS: CEFEPIME 2,000 MG in SYRINGE 0 ML IV SCH ×2 (08:35→19:43)
[2022-11-13] MEDS: SENNA 8.6 MG TAB PO PRN (10:44)
--- NOTE | 2022-11-13 15:16 | Hospitalist Progress Note ---
Date of Service November 13, 2022 Assessment & Plan (1) Acute on chronic heart failure with preserved ejection fraction (HFpEF): Plan: Secondary to severe aortic stenosis, with acute respiratory failure with hypoxia-requiring 2LNC Finally has diuresed a bit with increased dose of lasix on 11/13, but dyspnea slightly worse subjectively although lungs sound clearer Will continue diuretics, monitor I/O daily weights I/O net -1.2L Gentle diuresis given severe aortic stenosis-continue Lasix 40 Mg IV to bid Renal function stable Plan is for TAVR at [place] on 11/19, but Dr. Paige spoke with Dr. Wilson at [facility] on phone 11/13 who accepts the patient in transfer for Wednesday11/16/22. Dr. Paige will call Dr. Wilson again on Wednesday and give updated clinical status at that time before arranging transfer Daily weights, changed to low-sodium diet and add fluid restriction of 1500mL Continue supplemental O2 to keep POx>90% (2) Pneumonia of right lower lobe due to infectious organism: Plan: Patient presents to the hospital on account of worsening SOB Found to have right lobar consolidation, suspicious for PNA Blood cultures were obtained-NGTD He has been empirically started on Cefepime and Azithromycin-we will continue such to cover for Gram negative PNA and atypicals given recent hospitalizations- today was day #3 of azithro 500mg and now will stop No fevers or leukocytosis or productive sputum (3) Aortic stenosis, severe: Plan: He is scheduled to undergo TAVR at [place] on 11/19 as above will transfer to [facility] prior to TAVR The patient requires the head of the bed to be elevated more than 30 degrees most of the time due to congestive heart failure. Pillows or wedges have been considered and ruled out as they do not help him. He requires the need for frequent changes in body position to avoid bedsores. He is recommended to not move out of bed much until after his aortic valve replacement due to history of syncope from severe aortic stenosis. (4) EVELYN (acute kidney injury): Plan: Acute kidney injury on CKD- Creatinine 1.59, with base range 1.18-1.39-stable at 1.5 Some improvement in cr following diuresis Follow closely while diuresing (5) BPH with obstruction/lower urinary tract symptoms: Plan: BPH with LUTS- Continue tamsulosin at bedtime (6) Hypertension: Plan: BP is under good control continue home meds (7) Trigeminal neuralgia: Plan: Not on medication for this currently (8) PAF (paroxysmal atrial fibrillation): Plan: remains in sinus rhythm Only takes Eliquis when he feels he is in A-fib (9) Dyslipidemia: Plan: Continue atorvastatin (10) CAD (coronary artery disease): Plan: With cardiac cath 08/2022 with severe CAD involving proximal dominant left circumflex and proximal large caliber D1 Continue aspirin, statin, Toprol-XL Plan for revascularization at the time of her prior to aortic valve replacement (11) Pulmonary hypertension: Plan: Noted Wears CPAP with oxygen at nighttime Plan DVT prophylaxis-heparin SQ Disposition-continued stay in PCU and plan to transfer to [facility] next week Discussed care with at bedside again on 11/13 Admission and Anticipated Discharge Date Admission Date: November 09, 2022 Subjective Pt feels worse today with his breathing. He did finally move his bowels today. Denies chest pain. I discussed his care with the [facility]. Tele with NSR, rate 80-90s, PACs, PVCs Physical Exam Constitutional: WD/WN, vitals as above Respiratory: normal respiratory effort; no cough and not tachypneic Auscultation: no crackles, no rhonchi and no wheezes Cardiovascular: Rate/Rhythm: regular rate and regular rhythm Heart Sounds: + murmur (3/6 LARISSA at the RUSB) Gastrointestinal (Abdomen): normal bowel sounds, soft, nontender, no hepatosplenomegaly Inspection/Auscultation: + abdomen distended (mild) Musculoskeletal: Extremities: extremities normal to inspection; no cyanosis an d no clubbing Skin: no rashes, warm and dry Neurologic: moves all extremities and awake; no focal motor deficits Psychiatric: A+Ox3, euthymic affect Results & Data Results & Data Vital Signs (Past 12 Hours) Vital Signs Temp Pulse Pulse Resp BP Pulse Ox O2 Del Method 11/13/22 11:37 92 11/13/22 10:54 36.7 C 80 16 105/77 97 Nasal Cannula 11/13/22 08:14 36.4 C L 86 16 118/81 98 Nasal Cannula 11/13/22 07:52 Nasal Cannula 11/13/22 07:01 87 O2 Flow Rate 11/13/22 11:37 11/13/22 10:54 2 11/13/22 08:14 2 11/13/22 07:52 2 11/13/22 07:01 Laboratory Results CBC, BMP, magnesium reviewed PG Care Time/CCT Total # of Minutes Spent Total Time Spent with Patient: Total time spent is greater than 50% in coordination of care (as documented) at patient's floor/unit and/or counseling patient: Coding Level of Care Code 73063 SUB INP/OBS CARE 3/50MIN Diagnoses Acute on chronic heart failure with preserved ejection fraction (HFpEF) I50.33 Pneumonia of right lower lobe due to infectious organism J18.9 Aortic stenosis, severe I35.0 EVELYN (acute kidney injury) N17.9 BPH with obstruction/lower urinary tract symptoms N40.1; N13.8 Hypertension I10 Trigeminal neuralgia G50.0 PAF (paroxysmal atrial fibrillation) I48.0 Dyslipidemia E78.5 CAD (coronary artery disease) I25.10 Pulmonary hypertension I27.20
[2022-11-13] MEDS: ATORVASTATIN 40 MG TAB PO SCH (19:39)
[2022-11-13] MEDS: TAMSULOSIN HCL 0.4 MG CAP PO SCH (19:40)
[2022-11-14] MEDS: CEFEPIME 2,000 MG in SYRINGE 0 ML IV SCH ×2 (07:51→20:14)
[2022-11-14] MEDS: LORATADINE 10 MG TAB PO SCH (07:51)
[2022-11-14] MEDS: POTASSIUM CHLORIDE CRTAB 20 MEQ TABCR PO SCH (07:51)
[2022-11-14] MEDS: ASPIRIN 81 MG ECTAB PO SCH (07:52)
[2022-11-14] MEDS: METOPROLOL SUCC 25MG EXT REL TAB PO SCH (07:52)
[2022-11-14] MEDS: SENNA 8.6 MG TAB PO PRN (07:52)
[2022-11-14] MEDS: buPROPion XL 150 MG TABCR PO SCH (07:52)
[2022-11-14] MEDS: HEPARIN SOD 5,000 UNIT/0.5 ML VIAL SQ SCH ×2 (07:53→20:15)
[2022-11-14] MEDS: PANTOprazole 40 MG TAB PO SCH (07:53)
[2022-11-14] MEDS: FUROSEMIDE 40 MG/4 ML VIAL IV SCH (07:53)
[2022-11-14] MEDS: PARoxetine HCL 20 MG TAB PO SCH (07:53)
[2022-11-14 10:05] LABS: BUN Creatinine Ratio 19.3 (10-20); Calcium 9.2 mg/dl (8.6-10.3); Creatinine Clr Calc Pharmacy 42.4 ml/min; Est GFR (African American) 48.1 ml/min; Est GFR (Non-African American) 41.5 ml/min; Magnesium 1.8 mg/dl (1.7-2.4); Potassium 3.5 mmol/L (3.5-5.1)
[2022-11-14] MEDS ORDERED: MAGNESIUM SULFATE / D5W 1 GM/100 ML BAG IV ONE (12:06)
[2022-11-14] MEDS ORDERED: POTASSIUM CHLORIDE CRTAB 20 MEQ TABCR PO STA (12:06)
--- NOTE | 2022-11-14 14:03 | Hospitalist Progress Note ---
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 Paige spoke with Dr. Wilson at [facility] on phone 11/13 who accepts the patient in transfer for Wednesday11/16/22. Dr. Paige will call Dr. Wilson again on Wednesday and give updated clinical status at that time before arranging transfer Daily weights, changed to low-sodium diet and fluid restriction of 1500mL Continue supplemental O2 to keep POx>90% (2) Pneumonia of right lower lobe due to infectious organism: Plan: Patient presents to the hospital on account of worsening SOB Found to have right lobar consolidation, suspicious for PNA Blood cultures were obtained-NGTD He has been empirically started on Cefepime and Azithromycin (completed course)- will continue such to cover for Gram negative PNA and atypicals given recent hospitalizations-continue 1 more day of Cefepime No fevers or leukocytosis or productive sputum (3) Aortic stenosis, severe: Plan: He is scheduled to undergo TAVR at [place] on 11/19 as above will transfer to [facility] prior to TAVR The patient requires the head of the bed to be elevated more than 30 degrees most of the time due to congestive heart failure. Pillows or wedges have been considered and ruled out as they do not help him. He requires the need for frequent changes in body position to avoid bedsores. He is recommended to not move out of bed much until after his aortic valve replacement due to history of syncope from severe aortic stenosis. (4) EVELYN (acute kidney injury): Plan: Acute kidney injury on CKD- Creatinine 1.59, with base range 1.18-1.39-stable at 1.5-1.6 Some improvement in cr following diuresis Follow closely while diuresing (5) BPH with obstruction/lower urinary tract symptoms: Plan: BPH with LUTS- Continue tamsulosin at bedtime (6) Hypertension: Plan: BP is under good control continue home meds (7) Trigeminal neuralgia: Plan: Not on medication for this currently (8) PAF (paroxysmal atrial fibrillation): Plan: remains in sinus rhythm Only takes Eliquis when he feels he is in A-fib (9) Dyslipidemia: Plan: Continue atorvastatin (10) CAD (coronary artery disease): Plan: With cardiac cath 08/2022 with severe CAD involving proximal dominant left circumflex and proximal large caliber D1 Continue aspirin, statin, Toprol-XL Plan for revascularization at the time of her prior to aortic valve replacement (11) Pulmonary hypertension: Plan: Noted Wears CPAP with oxygen at nighttime-needs to bring his in from home-in meantime, will order hospital CPAP Plan DVT prophylaxis-heparin SQ Disposition-continued stay in PCU and plan to transfer to [facility] next week most likely Discussed care with at bedside again on 11/13 Admission and Anticipated Discharge Date Admission Date: November 09, 2022 Subjective Feels a little better than yesterday but paola LE Is lying flat sleeping when I saw him. Weaned him to room air and POx 94% Tele with SR,1st degree AVB, frequent PACs, rates 90s Physical Exam Constitutional: WD/WN, vitals as above Respiratory: normal respiratory effort; no cough and not tachypneic Auscultation: no crackles, no rhonchi and no wheezes Cardiovascular: Rate/Rhythm: regular rate and regular rhythm Heart Sounds: + murmur (3/6 LARISSA at the RUSB) Gastrointestinal (Abdomen): normal bowel sounds, soft, nontender, no hepatosplenomegaly Musculoskeletal: Extremities: extremities normal to inspection; no cyanosis and no clubbing Skin: no rashes, warm and dry Neurologic: moves all extremities and awake; no focal motor deficits Psychiatric: A+Ox3, euthymic affect Lymphatic: no lymphedema Results & Data Results & Data Vital Signs (Past 12 Hours) Vital Signs Temp Pulse Pulse Resp BP BP Pulse Ox 11/14/22 11:31 36.7 C 77 18 125/72 96 11/14/22 08:00 86 11/14/22 08:00 11/14/22 07:57 36.6 C 95 H 18 118/81 95 11/14/22 03:42 20 96 06/24/23 03:12 36.5 C 93 H 18 118/81 91 O2 Del Method O2 Flow Rate 11/14/22 11:31 Nasal Cannula 2 11/14/22 08:00 11/14/22 08:00 Nasal Cannula 2 11/14/22 07:57 Nasal Cannula 2 11/14/22 03:42 Nasal Cannula 2 11/14/22 03:12 Room Air Laboratory Results BMP, magnesium reviewed PG Care Time/CCT Total # of Minutes Spent Total Time Spent with Patient: Total time spent is greater than 50% in coordination of care (as documented) at patient's floor/unit and/or counseling patient: Coding Level of Care Code 45030 SUB INP/OBS CARE 235MIN Diagnoses Acute on chronic heart failure with preserved ejection fraction (HFpEF) I50.33 Pneumonia of right lower lobe due to infectious organism J18.9 Aortic stenosis, severe I35.0 EVELYN (acute kidney injury) N17.9 BPH with obstruction/lower urinary tract symptoms N40.1; N13.8 Hypertension I10 Trigeminal neuralgia G50.0 PAF (paroxysmal atrial fibrillation) I48.0 Dyslipidemia E78.5 CAD (coronary artery disease) I25.10 Pulmonary hypertension I27.20
[2022-11-14] MEDS: ATORVASTATIN 40 MG TAB PO SCH (20:15)
[2022-11-14] MEDS: TAMSULOSIN HCL 0.4 MG CAP PO SCH (20:16)
[2022-11-15 07:57] LABS: BUN Creatinine Ratio 20.7 (10-20); Calcium 9.3 mg/dl (8.6-10.3); Creatinine Clr Calc Pharmacy 45.7 ml/min; Est GFR (African American) 52.4 ml/min; Est GFR (Non-African American) 45.2 ml/min; Potassium 4.1 mmol/L (3.5-5.1)
[2022-11-15] MEDS: HEPARIN SOD 5,000 UNIT/0.5 ML VIAL SQ SCH ×2 (08:22→20:11)
[2022-11-15] MEDS: CEFEPIME 2,000 MG in SYRINGE 0 ML IV SCH (08:22)
[2022-11-15] MEDS: FUROSEMIDE 40 MG/4 ML VIAL IV SCH (08:22)
[2022-11-15] MEDS: SENNA 8.6 MG TAB PO PRN (08:23)
[2022-11-15] MEDS: ASPIRIN 81 MG ECTAB PO SCH (08:23)
[2022-11-15] MEDS: METOPROLOL SUCC 25MG EXT REL TAB PO SCH (08:23)
[2022-11-15] MEDS: LORATADINE 10 MG TAB PO SCH (08:23)
[2022-11-15] MEDS: PARoxetine HCL 20 MG TAB PO SCH (08:23)
[2022-11-15] MEDS: POTASSIUM CHLORIDE CRTAB 20 MEQ TABCR PO SCH (08:23)
[2022-11-15] MEDS: PANTOprazole 40 MG TAB PO SCH (08:23)
[2022-11-15] MEDS: buPROPion XL 150 MG TABCR PO SCH (08:23)
--- NOTE | 2022-11-15 17:50 | Hospitalist Progress Note ---
Date of Service November 15, 2022 Assessment & Plan (1) Acute on chronic heart failure with preserved ejection fraction (HFpEF): Plan: Secondary to severe aortic stenosis, with acute respiratory failure with hypoxia-requiring 2LNC at times Finally has diuresed a bit with increased dose of lasix, but LE persists Lungs sound clearer, still intermittently requiring supplemental O2 I/O net -3.0L Renal function stable with office coordinator 1.5 Gentle diuresis given severe aortic stenosis-continue Lasix 40 Mg IV qAM (reduced from bid on 11/13) due to rising office coordinator Plan is for TAVR at [place] on 11/[address], [address] Paige spoke with Dr. Wilson at [facility] on phone 11/13 who accepts the patient in transfer for Wednesday11/16/22. Dr. Paige will call Dr. Wilson again on Wednesday and give updated clinical status at that time before arranging transfer Daily weights,low-sodium diet and fluid restriction of 1500mL Continue supplemental O2 to keep POx>90% (2) Pneumonia of right lower lobe due to infectious organism: Plan: Patient presents to the hospital on account of worsening SOB Found to have right lobar consolidation, suspicious for PNA Blood cultures were obtained-NGTD He was empirically started on Cefepime and Azithromycin (completed course) to cover for Gram negative PNA and atypicals given recent hospitalizations No fevers or leukocytosis or productive sputum Some mildly increased fatigue and ?confusion as per family on 11/15--> could be hospital delirium or related to Cefepime? Stopping Cefepime and monitor mentation, promote good sleep/wake cycles, make sure hearing aids in place (3) Aortic stenosis, severe: Plan: He is scheduled to undergo TAVR at [place] on 11/19 as above will transfer to [facility] prior to TAVR The patient requires the head of the bed to be elevated more than 30 degrees most of the time due to congestive heart failure. Pillows or wedges have been considered and ruled out as they do not help him. He requires the need for frequent changes in body position to avoid bedsores. He is recommended to not move out of bed much until after his aortic valve replacement due to history of syncope from severe aortic stenosis. (4) EVELYN (acute kidney injury): Plan: Acute kidney injury on CKD- Creatinine 1.59, with base range 1.18-1.39-stable at 1.5-1.6 Some improvement in cr following diuresis Follow closely while diuresing (5) BPH with obstruction/lower urinary tract symptoms: Plan: BPH with LUTS- Continue tamsulosin at bedtime (6) Hypertension: Plan: BP is under good control continue home meds (7) Trigeminal neuralgia: Plan: Not on medication for this currently (8) PAF (paroxysmal atrial fibrillation): Plan: remains in sinus rhythm Only takes Eliquis when he feels he is in A-fib (9) Dyslipidemia: Plan: Continue atorvastatin (10) CAD (coronary artery disease): Plan: With cardiac cath 08/2022 with severe CAD involving proximal dominant left circumflex and proximal large caliber D1 Continue aspirin, statin, Toprol-XL Plan for revascularization at the time of her prior to aortic valve replacement (11) Pulmonary hypertension: Plan: Noted Wears CPAP with oxygen at nighttime-needs to bring his in from home-in meantime, use hospital CPAP Plan DVT prophylaxis-heparin SQ Disposition-continued stay in PCU and plan to transfer to [facility] early this week when bed available--> Dr. Paige is going to call down to [place] on Wednesday to confirm acceptance to Cardiology service there Discussed care with and daughter at bedside again on 11/15 Admission and Anticipated Discharge Date Admission Date: November 09, 2022 Subjective Pt feels more sleepy today. Family at bedside report he seems to be a little more confused the last 2 days. He says he is SOB with minimal exertion and mostly sitting all day. He is moving his bowels, eating. Tele with SR, 1st degree AVB, rates 80-90s Physical Exam Constitutional: WD/WN, vitals as above Respiratory: normal respiratory effort; no cough and not tachypneic Auscultation: + crackles (left base); no rhonchi and no wheezes Cardiovascular: Rate/Rhythm: regular rate and regular rhythm Heart Sounds: + murmur (3/6 LARISSA at the RUSB) Extremities: + edema (trace edema legs bilat) Gastrointestinal (Abdomen): normal bowel sounds, soft, nontender, no hepatosplenomegaly Musculoskeletal: Extremities: extremities normal to inspection; no cyanosis and no clubbing Skin: no rashes, warm and dry Neurologic: moves all extremities and awake; no focal motor deficits Psychiatric: Orientation: alert, oriented x 3 and cooperative Results & Data Results & Data Vital Signs (Past 12 Hours) Vital Signs Temp Pulse Pulse Resp BP Pulse Ox O2 Del Method 11/15/22 16:23 36.6 C 92 H 18 126/82 94 Nasal Cannula 11/15/22 11:52 36.5 C 20 121/85 91 Nasal Cannula 11/15/22 08:00 90 11/15/22 08:00 Room Air 11/15/22 07:58 36.6 C 60 18 124/80 93 Nasal Cannula O2 Flow Rate 11/15/22 16:23 2 11/15/22 11:52 2 11/15/22 08:00 11/15/22 08:00 11/15/22 07:58 2 Laboratory Results BMP, magnesium reviewed PG Care Time/CCT Total # of Minutes Spent Total Time Spent with Patient: Total time spent is greater than 50% in coordination of care (as documented) at patient's floor/unit and/or counseling patient: Coding Level of Care Code 31751 SUB INP/OBS CARE 2/35MIN Diagnoses Acute on chronic heart failure with preserved ejection fraction (HFpEF) I50.33 Pneumonia of right lower lobe due to infectious organism J18.9 Aortic stenosis, severe I35.0 EVELYN (acute kidney injury) N17.9 BPH with obstruction/lower urinary tract symptoms N40.1; N13.8 Hypertension I10 Trigeminal neuralgia G50.0 PAF (paroxysmal atrial fibrillation) I48.0 Dyslipidemia E78.5 CAD (coronary artery disease) I25.10 Pulmonary hypertension I27.20
[2022-11-15] MEDS: TAMSULOSIN HCL 0.4 MG CAP PO SCH (20:10)
[2022-11-15] MEDS: ATORVASTATIN 40 MG TAB PO SCH (20:10)
[2022-11-16 07:29] LABS: Basophils # (auto) 0.13 K/uL (0-0.2); Basophils % (auto) 2.4 %; Eosinophils # (auto) 0.15 K/uL (0-0.50); Eosinophils % (auto) 2.8 %; Hematocrit (blood only) 40.8 % (42.0-52.0); Hemoglobin 13.2 g/dl (14.0-18.0); Immature Granulocytes # (auto) 0.03 K/uL (0.01-0.20); Immature Granulocytes % (auto) 0.6 %; Lymphocytes # (auto) 0.86 K/uL (1.2-3.4); Mean Corpuscular Hemoglobin 30.9 pg (25.0-34.0); Mean Corpuscular Hgb Conc 32.4 g/dL (32.0-36.0); Mean Corpuscular Volume 95.6 fL (80.0-100.0); Monocytes # (auto) 0.55 K/uL (0.11-0.59); Monocytes % (auto) 10.2 %; Neutrophils # (auto) 3.66 K/uL (1.40-6.50); Platelet Count 152 K/uL (130-400); RDW Coefficient of Variation 17.1 % (11.5-14.5); RDW Standard Deviation 59.9 fL (36.4-46.3); Red Blood Count 4.27 M/uL (4.70-6.10); White Blood Count 5.38 K/ul (4.8-10.8)
[2022-11-16 07:53] LABS: BUN Creatinine Ratio 20.3 (10-20); Calcium 9.7 mg/dl (8.6-10.3); Creatinine Clr Calc Pharmacy 44.4 ml/min; Est GFR (African American) 51.2 ml/min; Est GFR (Non-African American) 44.1 ml/min; Potassium 4.5 mmol/L (3.5-5.1)
[2022-11-16] MEDS: HEPARIN SOD 5,000 UNIT/0.5 ML VIAL SQ SCH ×2 (08:33→21:34)
[2022-11-16] MEDS: buPROPion XL 150 MG TABCR PO SCH (08:33)
[2022-11-16] MEDS: METOPROLOL SUCC 25MG EXT REL TAB PO SCH (08:33)
[2022-11-16] MEDS: LORATADINE 10 MG TAB PO SCH (08:33)
[2022-11-16] MEDS: FUROSEMIDE 40 MG/4 ML VIAL IV SCH (08:33)
[2022-11-16] MEDS: PARoxetine HCL 20 MG TAB PO SCH (08:33)
[2022-11-16] MEDS: SENNA 8.6 MG TAB PO PRN (08:33)
[2022-11-16] MEDS: PANTOprazole 40 MG TAB PO SCH (08:33)
[2022-11-16] MEDS: POTASSIUM CHLORIDE CRTAB 20 MEQ TABCR PO SCH (08:33)
[2022-11-16] MEDS: ASPIRIN 81 MG ECTAB PO SCH (08:33)
[2022-11-16 15:38] LABS: Base Excess VBG 4.2 mEq/L; HCO3 VBG 28 mmol/L; Oxygen Saturation VBG 88.4 %; PCO2 VBG 40 mmHg (38-50); PO2 VBG 56 mmHg; pH VBG 7.46 (7.36-7.41)
[2022-11-16 16:03] LABS: Appearance Urine Clear (Clear); Bacteria Urine Automated Negative (Negative); Bilirubin Urine Negative (Negative); Blood Urine 1+ (Negative); Color Urine Yellow; Glucose Urine UA Negative (Negative); Ketones Urine Negative (Negative); Leukocyte Esterase Urine Negative (Negative); Nitrite Urine Negative (Negative); Protein Urine 1+ (Negative); RBC Urine Automated 0-4 /hpf (0-4); Specific Gravity Urine 1.009 (1.000-1.030); Urobilinogen Urine Negative (Negative)
[2022-11-16 16:04] LABS: Albumin Level 3.9 gm/dl (3.4-5.0); Bilirubin Direct 0.4 mg/dl (0-0.2); Bilirubin,Total 1.5 mg/dl (0.2-1.0); Total Protein 6.8 gm/dl (6.0-8.3)
--- NOTE | 2022-11-16 17:15 | XRay Report ---
KUB CLINICAL HISTORY: Abdominal distention. COMPARISON STUDY: CT of the abdomen and pelvis July 11, 2021. FINDINGS: The bowel gas pattern is normal. Moderate amount of stool within the right colon is noted. Small amount of stool within the rectum is noted. Pelvic calcifications are unchanged and favor phleb oliths. Right pleural effusion is incidentally noted. IMPRESSION: 1. No evidence for a bowel obstruction. 2. Moderate amount of stool within the right colon. 3. Right pleural effusion. ACT 112: Negative or not required by law. Electronically signed by: Kervin Bernard M.D. 11/16/2022 5:14 PM
--- NOTE | 2022-11-16 17:15 | XRay Report ---
XR chest 1V portable CLINICAL HISTORY: CHF, ?right pneumonia, interval change COMPARISON STUDY: Chest radiograph November 09, 2022. Chest CT November 15, 2017. FINDINGS: There is no pneumothorax. Suspected moderate right pleural effusion is similar to prior. Pe rsistent right basilar opacity is noted. Pulmonary edema has improved. Cardiomegaly is again noted. N o consolidation within the left lung is present. IMPRESSION: 1. Cardiomegaly with mild improvement in pulmonary edema. 2. Persistent moderate right pleural effusion with right basilar opacity which could reflect pneumoni a or atelectasis. Radiographic follow up to ensure resolution is recommended. ACT 112: Negative or not required by law. Electronically signed by: Kervin Bernard M.D. 11/16/2022 5:12 PM
--- NOTE | 2022-11-16 19:52 | Hospitalist Progress Note ---
Date of Service November 16, 2022 Assessment & Plan (1) Acute metabolic encephalopathy: Plan: likely hospital delirium in the setting of recently treated RLL pneumonia + hypoxia from decompensated CHF (and pulmonary HTN) u/a not suggestive of UTI but culture sent cxr without worsening pneumonia KUB xray without impaction ammonia wnl VBG without hypercarbia previous TSH wnl LFTs with mildly elevated t.bili/alk phos - likely hepatic congestion from decompensated CHF - but no signs of biliary cause of confusion procal negative CT head ordered to r/o acute process - suspect will be normal; neuro exam nonfocal cannot perform MRI brain due to cochlear implant reassurance given to family that hospital delirium is common explained physiology of this, need for good sleep and to keep blinds open during the day/lights on, etc he is pleasantly confused - and it is intermittent as he was oriented for me during rounds - would not medicate with antipsychotics at this time melatonin 3mg HS to help keep sleep-wake cycle intact (2) Acute on chronic heart failure with preserved ejection fraction (HFpEF): Plan: Secondary to severe aortic stenosis, with acute respiratory failure with hypoxia-requiring 2LNC at times Continue Lasix 40 Mg IV qAM (reduced from bid on 11/13) due to rising creatinine Continue metoprolol succ 12.5mg daily Plan is for TAVR at [facility] on 11/19/22 by report; he also needs CAD intervened on as well (see 08/31/[address] Andres Reno) Dr. Paige spoke with Dr. Romain Wilson at [facility] [place]13 who is aware of Mr Snyder' case The patient, however, has not yet been formally accepted to either the hospitalist service or cardiology service at [facility] will need to call first thing on Wednesday, 11/17 to arrange this transfer the patient's confusion was quite unsettling to the patient's family and they wanted to be sure nothing new was going on that would make his transfer complicated/unsafe given that we have reassuring labs, x-rays, etc - and if CT head is normal - would shoot for transfer tomorrow recheck BMP am (3) Pneumonia of right lower lobe due to infectious organism: Plan: Completed nearly 7 days of Cefepime and 5 days of Azithromycin CBC wnl today Procal negative RLL on today's cxr is stable Pneumonia likely clinically resolved (4) Aortic stenosis, severe: Plan: He is scheduled to undergo TAVR at [facility] on 11/19/22 Dr Paige spoke with Dr Romain Wilson on 11/[address] Wilson apparently is the interventionalist who will be performing the surgery Will call [facility] tomorrow am to arrange transfer (5) EVELYN (acute kidney injury): Plan: Acute kidney injury on CKD- Creatinine 1.5 today, with base range 1.18-1.39 Likely cardiorenal in etiology given the above Fortunately Creatinine remains stable during diuresis (6) BPH with obstruction/lower urinary tract symptoms: Plan: Continue tamsulosin at bedtime (7) Hypertension: Plan: BP controlled on metoprolol succinate (and flomax) (8) Trigeminal neuralgia: Plan: Not on medication for this currently Was on gabapentin in the past but was too sedated from such and was stopped (9) PAF (paroxysmal atrial fibrillation): Plan: remains in NSR Only takes Eliquis when he feels he is in A-fib Could he be having embolic events causing confusion but if CT head is negative would never be able to confirm such due to inability to get MRI Brain Cont tele (10) Dyslipidemia: Plan: Continue atorvastatin (11) CAD (coronary artery disease): Plan: With cardiac cath 08/31/2022 with severe CAD involving proximal dominant left circumflex and proximal large caliber D1 Continue aspirin, statin, Toprol-XL Plan for revascularization at [facility] [place] report No ischemic symptoms at this time (12) Pulmonary hypertension: Plan: In the past he has refused hospital CPAP He has started the CPAP mask or nasal pillows causes his trigeminal neuralgia to be worse, and he gets frequent nosebleeds continue NC O2 (13) Sleep apnea: Plan: as above (14) Hearing loss: Plan: cochlear implant severe hearing loss Plan DVT prophylaxis - heparin 5000 BID Care discussed with and daughter at bedside two times today Also called and spoke with pt's by phone late this evening with additional update Admission and Anticipated Discharge Date Admission Date: November 09, 2022 Subjective during the visit the pt's & daughter were at bedside they report that Mr Snyder has been confused today confusion started yesterday apparently he was talking about it "snowing outside" earlier today despite the confusion he is awake, alert, following commands, and knows he is in the hospital knows it is October 2022 understands he is here because of heart problems during my assessment he reports poor appetite the right side of his face is painful from his trigeminal neuralgia he has shortness of breath with very little activity Review of Systems Review of Systems: gen - no fevers cv - no chest pain pulm - dyspnea with activity GI - no abd pain, nausea or emesis; family reports his abdomen looks big neuro - family reports slurred speech?; +tremors psych - confusion per family Physical Exam Physical Exam: gen - very difficult to communicate with him due to severe hearing impairment, NAD, a little restless but able to follow commands psych - a/o x 3 skin - no rash mouth - MMM ears - cochlear implant device on right ; severe hearing impairment neck - no JVD heart - /6 holosystolic murmur RUSB, s1, s2 not heard, RRR lungs - decreased breath sounds right base, mild rales b/l bases, no distress abd - soft, mildly distended (body wall edema?), BS+, no HSM, NT ext - trace edema, pulses 2+ b/l neuro - no facial droop; strength 5/5 x 4 exts; speech sounds clear to me, no true dysarthria, no aphasia tremors present, mild asterixis present ? Results & Data Results & Data Vital Signs (Past 12 Hours) Vital Signs Temp Pulse Pulse Resp BP Pulse Ox O2 Del Method 11/16/22 19:49 36.7 C 92 H 18 124/82 95 Nasal Cannula 11/16/22 15:38 36.5 C 88 18 121/84 96 Nasal Cannula 11/16/22 11:35 36.7 C 90 20 112/79 94 Nasal Cannula 11/16/22 08:00 96 H 11/16/22 08:00 Nasal Cannula O2 Flow Rate 11/16/22 19:49 2 11/16/22 15:38 2 11/16/22 11:35 2 11/16/22 08:00 11/16/22 08:00 2 Laboratory Results Laboratory Results - last 24 hr 11/16/22 11/16/22 11/16/22 06:43 06:43 15:15 WBC 5.38 RBC 4.27 L Hgb 13.2 L Hct 40.8 L MCV 95.6 MCH 30.9 MCHC 32.4 RDW Std Deviation 59.9 H RDW Coeff of Herrera 17.1 H Plt Count 152 MPV 10.0 Immature Gran % (Auto) 0.6 Neut % (Auto) 68.0 Lymph % (Auto) 16.0 [place] % (Auto) 10.2 Eos % (Auto) 2.8 Baso % (Auto) 2.4 Neut # (Auto) 3.66 Lymph # (Auto) 0.86 L [place] # (Auto) 0.55 Eos # (Auto) 0.15 Baso # (Auto) 0.13 Immature Gran # (Auto) 0.03 VBG pH VBG pCO2 VBG pO2 VBG HCO3 VBG O2 Saturation VBG Base Excess Sodium 139 Potassium 4.5 Chloride 103 Carbon Dioxide 30 Anion Gap 6 BUN 31 H Creatinine 1.53 H Est Cr Clr Drug Dosing 44.4 Est GFR ( Amer) 51.2 Est GFR (Non-Af Amer) 44.1 BUN/Creatinine Ratio 20.3 H Glucose 86 Calcium 9.7 Magnesium 2.0 Total Bilirubin Direct Bilirubin AST ALT Alkaline Phosphatase Ammonia Total Protein Albumin Procalcitonin Urine Color Yellow Urine Appearance Clear Urine pH 5.0 Ur Specific [place] 1.009 Urine Protein 1+ H Urine Glucose (UA) Negative Urine Ketones Negative Urine Blood 1+ H Urine Nitrite Negative Urine Bilirubin Negative Urine Urobilinogen Negative Ur Leukocyte Esterase Negative Urine WBC (Auto) 1-5 Urine RBC (Auto) 0-4 U Hyaline Cast (Auto) 5-10 H U Epithel Cells (Auto) 5-10 H Urine Bacteria (Auto) Negative 11/16/22 11/16/22 11/16/22 15:20 15:20 15:20 WBC RBC Hgb Hct MCV MCH MCHC RDW Std Deviation RDW Coeff of Herrera Plt Count MPV Immature Gran % (Auto) Neut % (Auto) Lymph % (Auto) [place] % (Auto) Eos % (Auto) Baso % (Auto) Neut # (Auto) Lymph # (Auto) [place] # (Auto) Eos # (Auto) Baso # (Auto) Immature Gran # (Auto) VBG pH 7.46 H VBG pCO2 40 VBG pO2 56 VBG HCO3 28 VBG O2 Saturation 88.4 VBG Base Excess 4.2 Sodium Potassium Chloride Carbon Dioxide Anion Gap BUN Creatinine Est Cr Clr Drug Dosing Est GFR ( Amer) Est GFR (Non-Af Amer) BUN/Creatinine Ratio Glucose Calcium Magnesium Total Bilirubin 1.5 H Direct Bilirubin 0.4 H AST 38 ALT 39 Alkaline Phosphatase 132 H Ammonia 30.0 Total Protein 6.8 Albumin 3.9 Procalcitonin Urine Color Urine Appearance Urine pH Ur Specific [place] Urine Protein Urine Glucose (UA) Urine Ketones Urine Blood Urine Nitrite Urine Bilirubin Urine Urobilinogen Ur Leukocyte Esterase Urine WBC (Auto) Urine RBC (Auto) U Hyaline Cast (Auto) U Epithel Cells (Auto) Urine Bacteria (Auto) 11/16/22 15:28 WBC RBC Hgb Hct MCV MCH MCHC RDW Std Deviation RDW Coeff of Herrera Plt Count MPV Immature Gran % (Auto) Neut % (Auto) Lymph % (Auto) [place] % (Auto) Eos % (Auto) Baso % (Auto) Neut # (Auto) Lymph # (Auto) [place] # (Auto) Eos # (Auto) Baso # (Auto) Immature Gran # (Auto) VBG pH VBG pCO2 VBG pO2 VBG HCO3 VBG O2 Saturation VBG Base Excess Sodium Potassium Chloride Carbon Dioxide Anion Gap BUN Creatinine Est Cr Clr Drug Dosing Est GFR ( Amer) Est GFR (Non-Af Amer) BUN/Creatinine Ratio Glucose Calcium Magnesium Total Bilirubin Direct Bilirubin AST ALT Alkaline Phosphatase Ammonia Total Protein Albumin Procalcitonin < 0.05 Urine Color Urine Appearance Urine pH Ur Specific [place] Urine Protein Urine Glucose (UA) Urine Ketones Urine Blood Urine Nitrite Urine Bilirubin Urine Urobilinogen Ur Leukocyte Esterase Urine WBC (Auto) Urine RBC (Auto) U Hyaline Cast (Auto) U Epithel Cells (Auto) Urine Bacteria (Auto) PG Care Time/CCT Total # of Minutes Spent Total Time Spent with Patient: Total time spent is greater than 50% in coordination of care (as documented) at patient's floor/unit and/or counseling patient: Coding Level of Care Code 39435 SUB INP/OBS CARE 3/50MIN Diagnoses Acute metabolic encephalopathy G93.41 Acute on chronic heart failure with preserved ejection fraction (HFpEF) I50.33 Pneumonia of right lower lobe due to infectious organism J18.9 Aortic stenosis, severe I35.0 EVELYN (acute kidney injury) N17.9 BPH with obstruction/lower urinary tract symptoms N40.1; N13.8 Hypertension I10 Trigeminal neuralgia G50.0 PAF (paroxysmal atrial fibrillation) I48.0 Dyslipidemia E78.5 CAD (coronary artery disease) I25.10 Pulmonary hypertension I27.20 Sleep apnea G47.30 Hearing loss H91.90
[2022-11-16] MEDS ORDERED: MELATONIN 3 MG TAB PO SCH (21:00)
[2022-11-16] MEDS: ATORVASTATIN 40 MG TAB PO SCH (21:27)
[2022-11-16] MEDS: TAMSULOSIN HCL 0.4 MG CAP PO SCH (21:33)
--- NOTE | 2022-11-16 22:19 | CT Scan Report ---
Exam(s): CT HEAD Without Contrast EXAM: CT Head Without Intravenous Contrast CLINICAL HISTORY: Reason for exam: acute mental status changes. TECHNIQUE: Axial computed tomography images of the head/brain without intravenous contrast. CTDI is 37.76 mGy and DLP is 703.85 mGy-cm. Automated exposure control was utilized for the study. A dose lowering technique was utilized adhering to the principles of ALARA. COMPARISON: 10/07/22 FINDINGS: Limitations: [place] artifact from bilateral cochlear implants partially obscures the brain. Brain: Dozier-white matter differentiation appears grossly maintained. No acute intracranial hemorrhage or mass-effect. No visible parenchymal edema. Confluent hypoattenuation in the cerebral white matter in keeping with moderate chronic small vessel ischemic disease. Ventricles: Unremarkable. No hydrocephalus. Bones/joints: Unremarkable. No acute fracture. Soft tissues: Unremarkable. Vasculature: Intracranial atherosclerosis. Sinuses: Unremarkable as visualized. No acute sinusitis. Mastoid air cells: Bilateral partial mastoidectomies. Other findings: Bilateral cochlear implants. IMPRESSION: No acute intracranial process as visualized. Electronically signed by: Garry Lisa M.D. 11/16/22 22:19 PM
[2022-11-17] MEDS: METOPROLOL SUCC 25MG EXT REL TAB PO SCH (08:10)
[2022-11-17] MEDS: POTASSIUM CHLORIDE CRTAB 20 MEQ TABCR PO SCH (08:13)
[2022-11-17] MEDS: LORATADINE 10 MG TAB PO SCH (08:13)
[2022-11-17] MEDS: PANTOprazole 40 MG TAB PO SCH (08:13)
[2022-11-17] MEDS: ASPIRIN 81 MG ECTAB PO SCH (08:13)
[2022-11-17] MEDS: PARoxetine HCL 20 MG TAB PO SCH (08:13)
[2022-11-17] MEDS: buPROPion XL 150 MG TABCR PO SCH (08:14)
[2022-11-17] MEDS: FUROSEMIDE 40 MG/4 ML VIAL IV SCH (08:14)
[2022-11-17] MEDS: HEPARIN SOD 5,000 UNIT/0.5 ML VIAL SQ SCH (08:16)
[2022-11-17 08:35] LABS: BUN Creatinine Ratio 20.5 (10-20); Calcium 9.5 mg/dl (8.6-10.3); Creatinine Clr Calc Pharmacy 44.7 ml/min; Est GFR (Non-African American) 44.9 ml/min; Potassium 4.1 mmol/L (3.5-5.1)
--- NOTE | 2022-11-17 12:50 | Discharge Summary ---
Date of Service November 17, 2022 Admission HPI Per Admitting Provider The patient is a 76-year-old male with a past medical history including HFpEF, hypertension, trigeminal neuralgia, PAF, MVP, dyslipidemia, BPH with LUTS, CAD, gout and severe aortic stenosis, with tentative surgery for TAVR at [facility] on 11/19/2022. He has had chronic shortness of breath over the past several months, but in particular has worsened over the past few weeks, with an intermittently productive cough. Significant abnormal laboratories: Creatinine 1.59, total bilirubin 1.4, AST 42, troponin 46.0, BNP 1861. Chest x-ray shows right lower lobe infiltrate, pleural effusion and pulmonary edema The patient received ceftriaxone 2 g IV, azithromycin 500 mg IV, and furosemide 40 mg IV from the ED Principal Diagnosis severe aortic stenosis Discharge Exam The patient is awake, alert and oriented 3, well developed and well nourished, normocephalic and atraumatic, lying in bed and in no acute distress. HEENT--PERRL, EOMI, mucous membranes and oropharynx mildly dry Neck--supple. No JVD. No bruits. Thyroid normal, trachea midline, no adenopathy. Heart--normal S1 and S2. LARISSA Lungs--clear bilaterally, no respiratory distress, no accessory muscle use. Abdomen--normal bowel sounds and soft. Mild epigastric and left sided abdominal pain Extremities--no cyanosis or clubbing. No edema. Dermatologic--normal skin turgor, normal color, no abnormal lymph nodes, no rash. Neurologic--cranial nerves II through XII grossly intact. Rheumatologic--normal range of motion. Psychiatric--normal affect. Discharge Data Allergies Allergy/AdvReac Type Severity Reaction Status Date / Time baclofen Allergy Unknown Unknown Verified 11/09/22 23:00 cyclobenzaprine Allergy Unknown Unknown Verified 11/09/22 23:00 [From Flexeril] doxazosin Allergy Unknown Unknown Verified 11/09/22 23:00 doxycycline Allergy Unknown Unknown Verified 11/09/22 23:00 duloxetine Allergy Unknown Unknown Verified 11/09/22 23:00 gabapentin Allergy Unknown Unknown Verified 11/09/22 23:00 lisinopril Allergy Unknown Unknown Verified 11/09/22 23:00 naproxen Allergy Unknown Unknown Verified 11/09/22 23:00 nortriptyline [From Pamelor] Allergy Unknown Unknown Verified 11/09/22 23:00 oxcarbazepine Allergy Unknown Unknown Verified 11/09/22 23:00 Penicillins Allergy Unknown Unknown Verified 11/09/22 23:00 Consultations 11/09/22 22:34 ED Decision to Admit Stat 11/10/22 00:47 Consult Cardiology Routine 11/17/22 08:31 Burn CD for patient Stat Ordered Studies 11/16/22 18:35 CT head/brain wo con Urgent Hospital Course (1) Acute metabolic encephalopathy: likely hospital delirium in the setting of recently treated RLL pneumonia + hy poxia from decompensated CHF (and pulmonary HTN) u/a not suggestive of UTI but culture sent cxr without worsening pneumonia KUB xray without impaction ammonia wnl VBG without hypercarbia previous TSH wnl LFTs with mildly elevated t.bili/alk phos - likely hepatic congestion from decompensated CHF - but no signs of biliary cause of confusion procal negative CT head ordered to r/o acute process - suspect will be normal; neuro exam nonfocal cannot perform MRI brain due to cochlear implant reassurance given to family that hospital delirium is common explained physiology of this, need for good sleep and to keep blinds open during the day/lights on, etc he is pleasantly confused - and it is intermittent as he was oriented for me during rounds - would not medicate with antipsychotics at this time melatonin 3mg HS to help keep sleep-wake cycle intact (2) Acute on chronic heart failure with preserved ejection fraction (HFpEF): Secondary to severe aortic stenosis, with acute respiratory failure with hypoxia-requiring 2LNC at times Continue Lasix 40 Mg IV qAM (reduced from bid on 11/13) due to rising creatinine Continue metoprolol succ 12.5mg daily Plan is for TAVR at [facility] on 11/19/22 by report; he also needs CAD intervened on as well (see 08/31/[address] Andres Reno) Dr. Paige spoke with Dr. Romain Wilson at [facility] on phone 11/13 who is aware of Mr Snyder' case The patient, however, has not yet been formally accepted to either the hospitalist service or cardiology service at [facility] will need to call first thing on Wednesday, 11/17 to arrange this transfer the patient's confusion was quite unsettling to the patient's family and they wanted to be sure nothing new was going on that would make his transfer complicated/unsafe given that we have reassuring labs, x-rays, etc - and if CT head is normal - would shoot for transfer tomorrow recheck BMP am (3) Pneumonia of right lower lobe due to infectious organism: Completed nearly 7 days of Cefepime and 5 days of Azithromycin CBC wnl today Procal negative RLL on today's cxr is stable Pneumonia likely clinically resolved (4) Aortic stenosis, severe: He is scheduled to undergo TAVR at [facility] on 11/19/22 Dr Paige spoke with Dr Romain Wilson on 11/[address] Wilson apparently is the interventionalist who will be performing the surgery Will call [facility] tomorrow am to arrange transfer (5) EVELYN (acute kidney injury): Acute kidney injury on CKD- Creatinine 1.5 today, with base range 1.18-1.39 Likely cardiorenal in etiology given the above Fortunately Creatinine remains stable during diuresis (6) BPH with obstruction/lower urinary tract symptoms: Continue tamsulosin at bedtime (7) Hypertension: BP controlled on metoprolol succinate (and flomax) (8) Trigeminal neuralgia: Not on medication for this currently Was on gabapentin in the past but was too sedated from such and was stopped (9) PAF (paroxysmal atrial fibrillation): remains in NSR Only takes Eliquis when he feels he is in A-fib Could he be having embolic events causing confusion but if CT head is negative would never be able to confirm such due to inability to get MRI Brain Cont tele (10) Dyslipidemia: Continue atorvastatin (11) CAD (coronary artery disease): With cardiac cath 08/31/2022 with severe CAD involving proximal dominant left circumflex and proximal large caliber D1 Continue aspirin, statin, Toprol-XL Plan for revascularization at [facility] by report No ischemic symptoms at this time (12) Pulmonary hypertension: In the past he has refused hospital CPAP He has started the CPAP mask or nasal pillows causes his trigeminal neuralgia to be worse, and he gets frequent nosebleeds continue NC O2 (13) Sleep apnea: as above (14) Hearing loss: cochlear implant severe hearing loss Plan transfer to [facility] Total Time Total Time Spent Total Time Spent (In Minutes): 35 Discharge Plan Discharge Items Patient Disposition: Transfer Acute Care Hospital Reason For Visit: CHF, PNEUMONIA Discharge Diagnosis: severe aortic stenosis Activity: Resume your previous activity Non-emergency contact: Primary Care Provider, Surgeon and Excavating Supervisor Call non-emergency contact if: you have any medication questions Follow-up/Referrals: Nova Rousseau DO [Primary Care Provider] - Diet: Regular Addtl Attending Provider Instructions: please follow up with your regular doctors Pending Studies at Discharge: No Stand-Alone Forms: My [facility] Skilled Items Patient informed of condition?: Yes DNR: No Discharge Level of Care: Other Communicable Disease: No Discharge Prognosis: Stable Lines: None Urinary Catheter: No Medications and DC Order Prescriptions: Continued (DME) Wheelchair (Manual) Device See Rx Instructions .Route Qty: 1 0RF Rx Instructions: Standard Wheelchair, use as directed. atorvastatin 80 mg tablet 80 mg PO HS Qty: 90 1RF bupropion HCl [Wellbutrin XL] 150 mg tablet extended release 24 hr 150 mg PO QAM Qty: 90 3RF fluticasone propionate [Flonase Allergy Relief] 50 mcg/actuation spray,suspension 2 spray intranasal DAILY Qty: 48 1RF Rx Instructions: administer into each nostril pantoprazole 40 mg tablet,delayed release (DR/EC) 40 mg PO DAILY Qty: 90 2RF paroxetine HCl 40 mg tablet 40 mg PO QAM Qty: 90 1RF potassium chloride 20 mEq tablet extended release 20 meq PO QAM Qty: 90 1RF tamsulosin 0.4 mg capsule 0.4 mg PO HS Qty: 90 1RF (DME) Oxygen Home Liters Per Minute See Rx Instructions .ROUTE .MEDSUPPLY Qty: 1 0RF Rx Instructions: 2 liters oxygen blended into CPAP - use with sleep. aspirin 81 mg tablet,delayed release (DR/EC) 81 mg PO DAILY Qty: 90 3RF acetaminophen 500 mg tablet 1,000 mg PO TID PRN (Reason: fever or pain) Qty: 90 5RF furosemide [Lasix] 40 mg Tablet 40 mg PO DAILY loratadine 10 mg Tablet 10 mg PO DAILY metoprolol succinate 25 mg Tablet Extended Release 24 Hr 12.5 mg PO QAM Qty: 30 2RF Rx Instructions: for your heart Discharge Orders: Discharge Order (Routine); Ordered 11/17/22 Ordered By: [place] N. [place] Admission Data Admit Date/Time: 11/09/22 23:21 Attending Provider: Chiqui Quarles Admit Provider: Mauro Che Primary Care Provider: Nova Rousseau Other Providers: Mauro Che ; Toñito Paige ; Jet Aponte [facility] Other Interventions: Discharge Summary Assessment (RN) Last Done: 11/17/22 09:28 Coding Level of Care Code 08233 INP/OBS DISCH >30 MIN Diagnoses Acute metabolic encephalopathy G93.41 Acute on chronic heart failure with preserved ejection fraction (HFpEF) I50.33 Pneumonia of right lower lobe due to infectious organism J18.9 Aortic stenosis, severe I35.0 EVELYN (acute kidney injury) N17.9 BPH with obstruction/lower urinary tract symptoms N40.1; N13.8 Hypertension I10 Trigeminal neuralgia G50.0 PAF (paroxysmal atrial fibrillation) I48.0 Dyslipidemia E78.5 CAD (coronary artery disease) I25.10 Pulmonary hypertension I27.20 Sleep apnea G47.30 Hearing loss H91.90 Time Spent (min) 35
--- NOTE | 2022-11-18 08:22 | Coding Query ---
CODING QUERY To promote full compliance with coding requirements relating to patient care, provider participation is requested in all cases of mri ct tech uncertainty. Please assist us with the question(s) below: Coding Question(s): Pt admitted for pneumonia . H/P documents possible aspiration risk. 11/15 progress note RLL consolidation, antibiotics given to cover gram negative organisms. Please document, if known or suspected, the type of pneumonia that was treated during this admission. Thanks for your help! Dane Carreon [facility] Physician's Response(s): unable to further classify Principal Diagnosis: "that condition established after study, to be chiefly responsible for occasioning the admission of the patient to the hospital for care." Co-Existing Principal Diagnosis: "when two or more diagnoses equally meet the criteria for principal diagnosis as determined by the circumstances of admission, diagnostic work up, and/or therapy provided, and the Alphabetic Index, Tabular List, or another coding guideline does not provide sequencing direction, any one of the diagnoses may be sequenced first." "When the physician has documented what appears to be a current diagnosis in the body of the record, but has not included the diagnosis in the final diagnostic statement, the physician should be asked whether the diagnosis should be added." (Source Coding Clinic 2 QTR90. p3-4) KASHMIR
== END 2022-11-17 13:36 | disposition short-term general hospital (02) | DRG 193 ==
LOC: ED 20:56 → SUATTDRO 23:21 → 2S 23:21

== ENCOUNTER 2022-12-08 15:31 | Inpatient (IN) ==
[2022-12-08 16:25] LABS: Basophils # (auto) 0.08 K/uL (0-0.2); Basophils % (auto) 1.4 %; Eosinophils # (auto) 0.06 K/uL (0-0.50); Hematocrit (blood only) 40.3 % (42.0-52.0); Hemoglobin 13.3 g/dl (14.0-18.0); Immature Granulocytes # (auto) 0.01 K/uL (0.01-0.20); Immature Granulocytes % (auto) 0.2 %; Lymphocytes # (auto) 0.72 K/uL (1.2-3.4); Lymphocytes % (auto) 12.4 %; Mean Corpuscular Volume 97.1 fL (80.0-100.0); Mean Platelet Volume 11.5 fL (9.4-12.4); Monocytes # (auto) 0.46 K/uL (0.11-0.59); Monocytes % (auto) 7.9 %; Neutrophils # (auto) 4.49 K/uL (1.40-6.50); Neutrophils % (auto) 77.1 %; Nucleated RBC # (auto) 0.03 K/uL (0-0.12); Nucleated RBC % (auto) 0.5 %; Platelet Count 195 K/uL (130-400); RDW Coefficient of Variation 18.1 % (11.5-14.5); RDW Standard Deviation 62.6 fL (36.4-46.3); Red Blood Count 4.15 M/uL (4.70-6.10); White Blood Count 5.82 K/ul (4.8-10.8)
[2022-12-08 16:38] LABS: Alanine Aminotransferase 91 U/L (7-52); Albumin Globulin Ratio 1.2 (0.9-2); Albumin Level 3.9 gm/dl (3.4-5.0); Alkaline Phosphatase 143 U/L (34-104); Anion Gap 9 (3-11); Aspartate Aminotransferase 67 U/L (13-39); BUN Creatinine Ratio 22.3 (10-20); Bilirubin,Total 3.6 mg/dl (0.2-1.0); Blood Urea Nitrogen 37 mg/dl (6-23); Calcium 9.8 mg/dl (8.6-10.3); Carbon Dioxide 27 mmol/L (21-32); Chloride 104 mmol/L (98-107); Est GFR (African American) 46.4 ml/min; Globulin 3.3 gm/dl (2.5-4.0); Glucose 81 mg/dl (70-99(Fasting)); Potassium 4.1 mmol/L (3.5-5.1); Sodium 140 mmol/L (136-145); Total Protein 7.2 gm/dl (6.0-8.3)
[2022-12-08 16:53] LABS: INR 1.5 (0.9-1.1); Partial Thromboplastin Ratio 1.1; Partial Thromboplastin Time 31.1 Seconds (21.0-31.0); Prothrombin Time 15.6 Seconds (9.0-12.0)
--- NOTE | 2022-12-08 17:00 | XRay Report ---
XR chest 1V not portable CLINICAL HISTORY: weakness COMPARISON STUDY: Chest radiograph November 16, 2022. FINDINGS: There is mild elevation of the right hemidiaphragm. Small right pleural effusion has decrea sed in size since prior exam. There is no evidence for pulmonary edema. Moderate cardiomegaly is agai n noted. There is a prosthetic aortic valve. No pneumothorax. There is no consolidation to suggest pn eumonia. IMPRESSION: 1. Moderate cardiomegaly. No evidence for pulmonary edema. 2. Small right pleural effusion, decreased in size since prior exam. ACT 112: Negative or not required by law. Electronically signed by: Kervin Bernard M.D. 12/08/2022 4:57 PM
[2022-12-08] MEDS ORDERED: FUROSEMIDE 40 MG/4 ML VIAL IV ONE (18:09)
--- NOTE | 2022-12-08 18:10 | Emergency Department Note ---
History of Present Illness General Chief complaint: Illness Stated complaint: REF BY DOC,LOST 18ILBS IN 1 MONTH,[facility] Time Seen by Provider: 12/08/22 18:02 History of Present Illness 76-year-old male presents emergency department he status post TAVR procedure November 19 at [place]. Of note he was admitted by me mid October for congestive heart failure at our facility. He returns today for increased shortness of breath dizziness jaundice decreased p.o. intake and weight loss. Patient is a poor historian however his family is at bedside and states he has been losing weight he has been short of breath he has dyspnea on exertion that started earlier today. He was sent in by his primary care physician; Home Medications Medication Instructions Recorded Confirmed Type acetaminophen 500 mg tablet 1,000 mg PO TID PRN fever or pain 11/18/18 12/08/22 Rx #90 tabs aspirin 81 mg tablet,delayed 81 mg PO DAILY #90 tabs 06/09/22 12/08/22 Rx release metoprolol succinate 25 mg 12.5 mg PO QAM #30 tabs 08/22/22 12/08/22 Rx tablet,extended release 24 hr Wheelchair (Manual) #1 ea 09/17/22 12/08/22 Rx Oxygen Home #1 ea 10/12/22 12/08/22 Rx atorvastatin 80 mg tablet 80 mg PO HS #90 tabs 11/05/22 12/08/22 Rx bupropion HCl 150 mg 24 hr tablet, 150 mg PO QAM #90 tabs 11/05/22 12/08/22 Rx extended release (Wellbutrin XL) fluticasone propionate 50 2 spray intranasal DAILY #48 grams 11/05/22 12/08/22 Rx mcg/actuation nasal spray,suspension (Flonase Allergy Relief) pantoprazole 40 mg tablet,delayed 40 mg PO DAILY #90 tabs 11/05/22 12/08/22 Rx release paroxetine HCl 40 mg tablet 40 mg PO QAM #90 tabs 11/05/22 12/08/22 Rx potassium chloride 20 mEq 20 meq PO QAM #90 tabs 11/05/22 12/08/22 Rx tablet,extended release tamsulosin 0.4 mg capsule 0.4 mg PO HS #90 caps 11/05/22 12/08/22 Rx furosemide 40 mg tablet (Lasix) 40 mg PO DAILY 11/09/22 12/08/22 History loratadine 10 mg tablet 10 mg PO DAILY 11/09/22 12/08/22 History Allergies Allergy/AdvReac Type Severity Reaction Status Date / Time baclofen Allergy Unknown Unknown Verified 12/08/22 14:01 cyclobenzaprine Allergy Unknown Unknown Verified 12/08/22 14:01 [From Flexeril] doxazosin Allergy Unknown Unknown Verified 12/08/22 14:01 doxycycline Allergy Unknown Unknown Verified 12/08/22 14:01 duloxetine Allergy Unknown Unknown Verified 12/08/22 14:01 gabapentin Allergy Unknown Unknown Verified 12/08/22 14:01 lisinopril Allergy Unknown Unknown Verified 12/08/22 14:01 naproxen Allergy Unknown Unknown Verified 12/08/22 14:01 nortriptyline [From Pamelor] Allergy Unknown Unknown Verified 12/08/22 14:01 oxcarbazepine Allergy Unknown Unknown Verified 12/08/22 14:01 Penicillins Allergy Unknown Unknown Verified 12/08/22 14:01 Past Med/Surg History Medical History Acute heart failure with preserved ejection fraction Aneurysm, thoracic aortic pt unaware of size, follows with Dr. Paige Aortic atherosclerosis Aortic stenosis, severe BPH with obstruction/lower urinary tract symptoms CAD (coronary artery disease) Cervical disc disease Chronic sinusitis Cognitive disorder Coronary artery calcification Depression with anxiety Dyslipidemia Glaucoma Hearing loss Hepatic steatosis History of central retinal vein occlusion Hypertension Iron deficiency Lower GI bleed no current issues Lumbar spinal stenosis Mitral regurgitation MVP (mitral valve prolapse) Osteoarthritis PAC (premature atrial contraction) PAF (paroxysmal atrial fibrillation) Sleep apnea Trigeminal neuralgia received radiation for this, having numbess/tingling to right side of face since this Vitamin D deficiency Surgical History H/O cataract extraction (2013) H/O colonoscopy History of cochlear implant (01/12/12) BILATERAL History of pilonidal cyst removed History of umbilical hernia repair S/P foot surgery, right (12/2010) removal of heel spur S/P laser trabeculoplasty of eye (10/2014) b/l S/P nasal endoscopy with nasal polypectomy (2011) S/P rotator cuff repair b/l shoulders S/p TAVR (transcatheter aortic valve replacement), 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) Family History Mother No pertinent family history Other Hypertension Denies family history of Ovarian cancer Prostate cancer Diabetes Myocardial infarction Breast cancer Colorectal cancer Cancer Social History Smoking Status: Never smoker Second Hand Exposure: No; Do You Dip or Chew Tobacco: No; Hx Alcohol Use: No Hx Substance Use: No Preferred Language: Sammarinese Communication Ability: Effective Visual Impairment: No Limitations Hearing Ability: Cochlear Implant Workforce Staffing Advisor Required: No Beliefs That Will Affect Care: None marital status: Current Living Situation: Spouse and Family Current Living Situation Comment: with and daughter current occupational status: retired How many Children do You have: 1 Feels Safe at Home: Yes Childhood Exposure to Second-Hand Smoke: Yes Diet: regular Diet Comment: regular caffeine: Yes (Soda 6 per day. Coffee 1 cup per day.) during the past year weight has: remained stable Dental Care, Regularly: No Physical Activity Frequency: Daily Seatbelt Use: sometimes Sunscreen Use: No Assistive Devices: Cane and Walker Review of Systems A total of 10 systems reviewed and were otherwise negative Constitutional: no fever Respiratory: + dyspnea and + dyspnea on exertion Gastrointestinal: + nausea Integumentary: + yellowing of the skin Physical Exam Vital Signs Vital Signs - 24 hr 12/08/22 15:40 12/08/22 18:03 12/08/22 18:09 Temperature 36.7 C Temperature Source Temporal Artery Scan Pulse Rate 88 152 H 93 H Respiratory Rate 16 Blood Pressure 109/72 Blood Pressure Mean 84 Pulse Oximetry 93 Oxygen Delivery Method Room Air Sepsis Recent Fever Within 48 Hours No Sepsis New/Unexplained Change in Mental Status N/A Sepsis Action Taken by Nursing No Action Required GENERAL: Patient is awake alert in no acute distress patient is resting comfortably and showing no signs of anxiety EYES: Scleral icterus is present. The pupils are round and reactive. EARS, NOSE, MOUTH AND THROAT: The nose is without any evidence of any deformity. Mucous membranes are moist. Tongue is midline. NECK: The neck is nontender and supple. RESPIRATORY: Normal respiratory effort is noted there is no evidence of wheezing rhonchi or rales CARDIOVASCULAR: Irregularly irregular but not tachycardic no murmur present GASTROINTESTINAL: The abdomen is soft. Abdomen is nontender. No distention BACK: No midline tenderness or or step-off noted range of motion in flexion extension as well as rotation no signs of muscle spasm noted MUSCULOSKELETAL/EXTREMITIES: There is no evidence of gross deformity full range of motion is noted in the hips and shoulders. SKIN: Jaundiced. There are no petechiae, pallor or cyanosis noted. NEUROLOGIC: Patient is awake alert and oriented x3 strength is symmetric Medical Decision Making Medical Records Attestation: I reviewed the patient's medical records. Home Medications Current Medication List: was personally reviewed by me Laboratory Data Attestation: I reviewed the patient's lab results. 12/08/22 16:00 12/08/22 16:00 Lab Results 12/08/22 12/08/22 12/08/22 Range/Units 16:00 16:00 16:00 WBC 5.82 (4.8-10.8) K/ul RBC 4.15 L (4.70-6.10) M/uL Hgb 13.3 L (14.0-18.0) g/dl Hct 40.3 L (42.0-52.0) % MCV 97.1 (80.0-100.0) fL MCH 32.0 (25.0-34.0) pg MCHC 33.0 (32.0-36.0) g/dL RDW Std Deviation 62.6 H (36.4-46.3) fL RDW Coeff of Herrera 18.1 H (11.5-14.5) % Plt Count 195 (130-400) K/uL MPV 11.5 (9.4-12.4) fL Immature Gran % (Auto) 0.2 % Neut % (Auto) 77.1 % Lymph % (Auto) 12.4 % [place] % (Auto) 7.9 % Eos % (Auto) 1.0 % Baso % (Auto) 1.4 % Neut # (Auto) 4.49 (1.40-6.50) K/uL Lymph # (Auto) 0.72 L (1.2-3.4) K/uL [place] # (Auto) 0.46 (0.11-0.59) K/uL Eos # (Auto) 0.06 (0-0.50) K/uL Baso # (Auto) 0.08 (0-0.2) K/uL Immature Gran # (Auto) 0.01 (0.01-0.20) K/uL Absolute Nucleated RBC 0.03 (0-0.12) K/uL Nucleated RBC % (auto) 0.5 % PT 15.6 H (9.0-12.0) Seconds INR 1.5 H (0.9-1.1) APTT 31.1 H (21.0-31.0) Seconds PTT Ratio 1.1 Sodium 140 (136-145) mmol/L Potassium 4.1 (3.5-5.1) mmol/L Chloride 104 (98-107) mmol/L Carbon Dioxide 27 (21-32) mmol/L Anion Gap 9 (3-11) BUN 37 H (6-23) mg/dl Creatinine 1.66 H (0.6-1.4) mg/dl Est Cr Clr Drug Dosing Not Reportable Est GFR ( Amer) 46.4 ml/min Est GFR (Non-Af Amer) 40.0 ml/min BUN/Creatinine Ratio 22.3 H (10-20) Glucose 81 (70-99(Fasting)) mg/dl Calcium 9.8 (8.6-10.3) mg/dl Total Bilirubin 3.6 H (0.2-1.0) mg/dl AST 67 H (13-39) U/L ALT 91 H (7-52) U/L Alkaline Phosphatase 143 H (34-104) U/L Total Protein 7.2 (6.0-8.3) gm/dl Albumin 3.9 (3.4-5.0) gm/dl Globulin 3.3 (2.5-4.0) gm/dl Albumin/Globulin Ratio 1.2 (0.9-2) SARS-CoV-2, RNA, NAAT (NEGATIVE) 12/08/22 Range/Units 16:00 WBC (4.8-10.8) K/ul RBC (4.70-6.10) M/uL Hgb (14.0-18.0) g/dl Hct (42.0-52.0) % MCV (80.0-100.0) fL MCH (25.0-34.0) pg MCHC (32.0-36.0) g/dL RDW Std Deviation (36.4-46.3) fL RDW Coeff of Herrera (11.5-14.5) % Plt Count (130-400) K/uL MPV (9.4-12.4) fL Immature Gran % (Auto) % Neut % (Auto) % Lymph % (Auto) % [place] % (Auto) % Eos % (Auto) % Baso % (Auto) % Neut # (Auto) (1.40-6.50) K/uL Lymph # (Auto) (1.2-3.4) K/uL [place] # (Auto) (0.11-0.59) K/uL Eos # (Auto) (0-0.50) K/uL Baso # (Auto) (0-0.2) K/uL Immature Gran # (Auto) (0.01-0.20) K/uL Absolute Nucleated RBC (0-0.12) K/uL Nucleated RBC % (auto) % PT (9.0-12.0) Seconds INR (0.9-1.1) APTT (21.0-31.0) Seconds PTT Ratio Sodium (136-145) mmol/L Potassium (3.5-5.1) mmol/L Chloride (98-107) mmol/L Carbon Dioxide (21-32) mmol/L Anion Gap (3-11) BUN (6-23) mg/dl Creatinine (0.6-1.4) mg/dl Est Cr Clr Drug Dosing Est GFR ( Amer) ml/min Est GFR (Non-Af Amer) ml/min BUN/Creatinine Ratio (10-20) Glucose (70-99(Fasting)) mg/dl Calcium (8.6-10.3) mg/dl Total Bilirubin (0.2-1.0) mg/dl AST (13-39) U/L ALT (7-52) U/L Alkaline Phosphatase (34-104) U/L Total Protein (6.0-8.3) gm/dl Albumin (3.4-5.0) gm/dl Globulin (2.5-4.0) gm/dl Albumin/Globulin Ratio (0.9-2) SARS-CoV-2, RNA, NAAT NEGATIVE (NEGATIVE) Imaging Data Attestation: I personally reviewed and interpreted this imaging study as follows: My Impression: Chest x-ray interpreted by me cardiomegaly pleural effusion no pneumothorax Radiologist's Impression: Chest X-Ray 12/08/22 15:43 XR chest 1V not portable CLINICAL HISTORY: weakness COMPARISON STUDY: Chest radiograph November 16, 2022. FINDINGS: There is mild elevation of the right hemidiaphragm. Small right pleural effusion has decreased in size since prior exam. There is no evidence for pulmonary edema. Moderate cardiomegaly is again noted. There is a prosthetic aortic valve. No pneumothorax. There is no consolidation to suggest pneumonia. IMPRESSION: 1. Moderate cardiomegaly. No evidence for pulmonary edema. 2. Small right pleural effusion, decreased in size since prior exam. ACT 112: Negative or not required by law. Electronically signed by: Kervin Bernard M.D. 12/08/2022 4:57 PM ECG Data Attestation: I personally reviewed and interpreted this ECG as follows: Additional Comments: EKG #1 at 1553 interpreted by me atrial fibrillation incomplete right bundle branch block nonspecific ST-T change rate of 97 EKG #2 interpreted by me at 1805 sinus rhythm first-degree AV block nonspecific ST-T change deep T wave inversion with PVCs Telemetry was ordered by me, patient has intermittent paroxysmal rapid atrial fibrillation rate of 157 however is back in rate controlled atrial fibrillation at 94 MDM Narrative Medical decision making differential diagnosis includes CHF, pneumonia, pleural effusion, electrolyte abnormality, transaminitis metabolic derangement deconditioning Plan is to check labs, cardiac labs, admit for CHF and deconditioning with transaminitis Prior medical records were reviewed, Amanda's discharge summary was reviewed by me, of note I admitted the patient in October 2022 and read their discharge summary Impression & Plan CHF (congestive heart failure), Atrial fibrillation, Transaminitis Discharge Plan Visit Data Chief Complaint: Illness Stated Complaint: REF BY DOC,LOST 18ILBS IN 1 MONTH,[facility] ED Provider: Montana Clay Discharge Problem: CHF (congestive heart failure), Atrial fibrillation, Transaminitis Patient Disposition: Admitted As Inpatient Forms Stand Alone Forms: My [facility] Prescriptions Prescriptions: No Action (DME) Wheelchair (Manual) Device See Rx Instructions .Route Qty: 1 0RF Rx Instructions: Standard Wheelchair, use as directed. atorvastatin 80 mg tablet 80 mg PO HS Qty: 90 1RF bupropion HCl [Wellbutrin XL] 150 mg tablet extended release 24 hr 150 mg PO QAM Qty: 90 3RF fluticasone propionate [Flonase Allergy Relief] 50 mcg/actuation spray,susp ension 2 spray intranasal DAILY Qty: 48 1RF Rx Instructions: administer into each nostril pantoprazole 40 mg tablet,delayed release (DR/EC) 40 mg PO DAILY Qty: 90 2RF paroxetine HCl 40 mg tablet 40 mg PO QAM Qty: 90 1RF potassium chloride 20 mEq tablet extended release 20 meq PO QAM Qty: 90 1RF tamsulosin 0.4 mg capsule 0.4 mg PO HS Qty: 90 1RF (DME) Oxygen Home Liters Per Minute See Rx Instructions .ROUTE .MEDSUPPLY Qty: 1 0RF Rx Instructions: 2 liters oxygen blended into CPAP - use with sleep. aspirin 81 mg tablet,delayed release (DR/EC) 81 mg PO DAILY Qty: 90 3RF acetaminophen 500 mg tablet 1,000 mg PO TID PRN (Reason: fever or pain) Qty: 90 5RF furosemide [Lasix] 40 mg Tablet 40 mg PO DAILY loratadine 10 mg Tablet 10 mg PO DAILY metoprolol succinate 25 mg Tablet Extended Release 24 Hr 12.5 mg PO QAM Qty: 30 2RF Rx Instructions: for your heart Referrals Referrals: Nova Rousseau DO [Primary Care Provider] -
[2022-12-08] MEDS ORDERED: OPTIRAY 320 125ml IV ONE (19:21)
--- NOTE | 2022-12-08 20:17 | CT Scan Report ---
Exam(s): CTA CHEST IV Amt: 118 ml optiray 320 EXAM: CT Angiography Chest With Intravenous Contrast CLINICAL HISTORY: Reason for exam: PE. TECHNIQUE: Axial computed tomographic angiography images of the chest with intravenous contrast. Automated exposure control was utilized for the study. A dose lowering technique was utilized adhering to the principles of ALARA. MIP reconstructed images were created and reviewed. COMPARISON: CT chest on 11/15/2017 FINDINGS: Pulmonary arteries: Unremarkable. No pulmonary embolus identified. Aorta: Atherosclerotic changes of the aorta. No aortic aneurysm. Hepatic veins: Reflux of contrast into the hepatic veins is suggestive of elevated right heart pressures. Lungs: Small calcified granulomas in the right lower lobe. Dependent atelectasis on the right. Mild scattered atelectasis bilaterally. No mass. Pleural space: Moderate right-sided pleural effusion. No pneumothorax. Heart: Mild cardiomegaly. Coronary artery calcifications. TAVR. Mediastinum: Nonspecific mildly prominent mediastinal lymph nodes. Bones/joints: Degenerative changes of the spine. No acute fracture. No dislocation. Soft tissues: Unremarkable. Lymph nodes: Unremarkable. No enlarged lymph nodes. IMPRESSION: 1. No pulmonary embolus identified. 2. Atherosclerotic changes of the aorta. No aortic aneurysm. 3. Moderate right-sided pleural effusion. 4. Dependent atelectasis on the right. Mild scattered atelectasis bilaterally. Electronically signed by: Avril Russ M.D. 12/08/22 20:16 PM
--- NOTE | 2022-12-08 20:28 | CT Scan Report ---
Exam(s): CT ABDOMEN + PELVIS With Contrast IV Amt: 118 ml optiray 320 EXAM: CT Abdomen and Pelvis With Intravenous Contrast CLINICAL HISTORY: Reason for exam: elevated LFTs, post prandial pain. TECHNIQUE: Axial computed tomography images of the abdomen and pelvis with intravenous contrast. CTDI is 25.12 mGy and DLP is 1263.54 mGy-cm. Automated exposure control was utilized for the study. A dose lowering technique was utilized adhering to the principles of ALARA. CONTRAST: Patient received 118 ml optiray 320 of IV contrast COMPARISON: CT abdomen/pelvis on 07/11/2021 FINDINGS: Lung bases: Please see accompanying CT chest for further details. ABDOMEN: Liver: Hepatic steatosis. Small right hepatic cyst. Gallbladder and bile ducts: Distended gallbladder. Hyperdense material in the gallbladder may represent artifact versus stones/sludge. No evidence of inflammation. No ductal dilation. Pancreas: Unremarkable. No mass. No ductal dilation. Spleen: Unremarkable. No splenomegaly. Adrenals: Unremarkable. No mass. Kidneys and ureters: Small hypodensities in the kidneys are too small to definitively characterize. No hydronephrosis or obstructing stone. Stomach and bowel: Mild prominence of the wall of the ascending colon may be secondary to underdistention. Colitis is not exited. Evaluation of the stomach is limited by underdistention. Diverticulosis without evidence of diverticulitis. No small bowel obstruction. PELVIS: Appendix: No findings to suggest acute appendicitis. Bladder: Distended bladder. No significant bladder wall thickening or stone. Reproductive: Mild prostatomegaly. ABDOMEN and PELVIS: Intraperitoneal space: Small amount of fluid in the pelvis. Trace perihepatic fluid. No free air. Small stable calcified nodular densities in the left lower quadrant could represent calcified lymph nodes. Bones/joints: Degenerative changes of the spine. Grade 1 anterolisthesis of L4 on L5. No acute fracture. No dislocation. Soft tissues: Unremarkable. Vasculature: Phleboliths in the pelvis. Atherosclerotic changes of the vasculature. No aortic aneurysm or dissection. Lymph nodes: Unremarkable. No enlarged lymph nodes. IMPRESSION: 1. Mild prominence of the wall of the ascending colon may be secondary to underdistention. Colitis is not exited. 2. Hepatic steatosis. Small right hepatic cyst. 3. Small amount of fluid in the pelvis. Trace perihepatic fluid. 4. Please see accompanying CT chest for further details. Electronically signed by: Avril Russ M.D. 12/08/22 20:27 PM
--- NOTE | 2022-12-08 20:51 | History & Physical Report ---
Date of Service December 08, 2022 Assessment & Plan (1) Elevated LFTs: Plan: No acute ramses on CT and no current RUQ pain however suspect he is having intermittent biliary colic (he describes stomach feeling sour after eating). I suspect he had or has choledocholithiasis, if LFTs increasing he will need GI consult +/- MRCP. For now will get US liver to better r/o acute ramses and assess CBD dilatation. Consult general surgery. Allow low fat diet tonight but NPO after midnight in case he requires ERCP. Avoid NSAIDs and acetaminophen while cause of elevated LFTs further investigated INR also elevated but unclear if this is related to liver disease since his platelets are normal, will give 5mg IV vitamin K to see if this is reversible (2) Atrial fibrillation with rapid ventricular response: Plan: Intermittently having rapid ventricular response Missed his morning metoprolol this morning likely contributing Start metoprolol tartrate 25mg PO BID Start anticoagulation ?cause of recent shortness of breath Consult cardiology (3) S/p TAVR (transcatheter aortic valve replacement), bioprosthetic: Plan: Recently performed on November 19 - he reports no change in his shortness of breath since this (4) CHF (congestive heart failure): Plan: No current exacerbation noted. Lasic given in the ER. Avoid IV fluids overnight. (5) BPH with obstruction/lower urinary tract symptoms: Plan: Continue tamsulosin (6) Depression with anxiety: Plan: Continue Plan VTE Prophylaxis - IV heparin Diet - low fat, low Na, NPO after midnight Disposition - admit to PCU Admission and Anticipated Discharge Date Admission Date: December 08, 2022 History of Present Illness Chief Complaint: Jaundice Primary Care Provider: DO Yimi Willis is a 76 year old male who presents to the ER PCP concerned about color of skin. He recently had a TAVR on November 19 due to severe aortic stenosis after recently hospitalization for shortness of breath. He reports ongoing shortness of breath although this is no different today from last week. No chest pain. Main concern from PCP was worsening LFTs and jaundice. The pain reports stomach feeling "sour" after eating in his epigastric area. He has been getting weaker as eating and drinking less since this brings on this feeling. He denies pain. No change in bowels, melena, hematocheszia, nausea or vomiting. He reports not taking his medications this morning but took them all yesterday. Associated dizziness when standing and taking his time to get his bearings. Allergies Allergy/AdvReac Type Severity Reaction Status Date / Time baclofen Allergy Unknown PT & PT'S Verified 12/08/22 20:11 SPOUSE DENIES ANY ALLERGIES OR SENSATIVITY TO MED cyclobenzaprine Allergy Unknown PT & PT'S Verified 12/08/22 20:11 [From Flexeril] SPOUSE DENIES ANY ALLERGIES OR SENSATIVITY TO MED doxazosin Allergy Unknown PT & PT'S Verified 12/08/22 20:11 SPOUSE DENIES ANY ALLERGIES OR SENSATIVITY TO MED doxycycline Allergy Unknown PT & PT'S Verified 12/08/22 20:11 SPOUSE DENIES ANY ALLERGIES OR SENSATIVITY TO MED duloxetine Allergy Unknown PT & PT'S Verified 12/08/22 20:11 SPOUSE DENIES ANY ALLERGIES OR SENSATIVITY TO MED gabapentin Allergy Unknown PT & PT'S Verified 12/08/22 20:11 SPOUSE DENIES ANY ALLERGIES OR SENSATIVITY TO MED lisinopril Allergy Unknown PT & PT'S Verified 12/08/22 20:11 SPOUSE DENIES ANY ALLERGIES OR SENSATIVITY TO MED naproxen Allergy Unknown PT & PT'S Verified 12/08/22 20:11 SPOUSE DENIES ANY ALLERGIES OR SENSATIVITY TO MED nortriptyline [From Pamelor] Allergy Unknown PT & PT'S Verified 12/08/22 20:11 SPOUSE DENIES ANY ALLERGIES OR SENSATIVITY TO MED oxcarbazepine Allergy Unknown PT & PT'S Verified 12/08/22 20:11 SPOUSE DENIES ANY ALLERGIES OR SENSATIVITY TO MED Penicillins Allergy Unknown PT & PT'S Verified 12/08/22 20:11 SPOUSE DENIES ANY ALLERGIES OR SENSATIVITY TO MED Home Medications Medication Instructions Recorded Confirmed Type acetaminophen 500 mg tablet 1,000 mg PO TID PRN fever or pain 11/18/18 12/08/22 Rx #90 tabs aspirin 81 mg tablet,delayed 81 mg PO DAILY #90 tabs 06/09/22 12/08/22 Rx release metoprolol succinate 25 mg 12.5 mg PO QAM #30 tabs 08/22/22 12/08/22 Rx tablet,extended release 24 hr Wheelchair (Manual) #1 ea 09/17/22 12/08/22 Rx Oxygen Home #1 ea 10/12/22 12/08/22 Rx atorvastatin 80 mg tablet 80 mg PO HS #90 tabs 11/05/22 12/08/22 Rx bupropion HCl 150 mg 24 hr tablet, 150 mg PO QAM #90 tabs 11/05/22 12/08/22 Rx extended release (Wellbutrin XL) fluticasone propionate 50 2 spray intranasal DAILY #48 grams 11/05/22 12/08/22 Rx mcg/actuation nasal spray,suspension (Flonase Allergy Relief) pantoprazole 40 mg tablet,delayed 40 mg PO DAILY #90 tabs 11/05/22 12/08/22 Rx release paroxetine HCl 40 mg tablet 40 mg PO QAM #90 tabs 11/05/22 12/08/22 Rx potassium chloride 20 mEq 20 meq PO QAM #90 tabs 11/05/22 12/08/22 Rx tablet,extended release tamsulosin 0.4 mg capsule 0.4 mg PO HS #90 caps 11/05/22 12/08/22 Rx furosemide 40 mg tablet (Lasix) 40 mg PO DAILY 11/09/22 12/08/22 History loratadine 10 mg tablet 10 mg PO DAILY 11/09/22 12/08/22 History Past Med/Surg History Medical History Acute heart failure with preserved ejection fraction Aneurysm, thoracic aortic pt unaware of size, follows with Dr. Paige Aortic atherosclerosis Aortic stenosis, severe BPH with obstruction/lower urinary tract symptoms CAD (coronary artery disease) Cervical disc disease Chronic sinusitis Cognitive disorder Coronary artery calcification Depression with anxiety Dyslipidemia Glaucoma Hearing loss Hepatic steatosis History of central retinal vein occlusion Hypertension Iron deficiency Lower GI bleed no current issues Lumbar spinal stenosis Mitral regurgitation MVP (mitral valve prolapse) Osteoarthritis PAC (premature atrial contraction) PAF (paroxysmal atrial fibrillation) Sleep apnea Trigeminal neuralgia received radiation for this, having numbess/tingling to right side of face since this Vitamin D deficiency Surgical History H/O cataract extraction (2013) H/O colonoscopy History of cochlear implant (01/12/12) BILATERAL History of pilonidal cyst removed History of umbilical hernia repair S/P foot surgery, right (12/2010) removal of heel spur S/P laser trabeculoplasty of eye (10/2014) b/l S/P nasal endoscopy with nasal polypectomy (2011) S/P rotator cuff repair b/l shoulders S/p TAVR (transcatheter aortic valve replacement), 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) Family History Mother No pertinent family history Other Hypertension Denies family history of Ovarian cancer Prostate cancer Diabetes Myocardial infarction Breast cancer Colorectal cancer Cancer Social History Smoking Status: Never smoker Second Hand Exposure: No; Do You Dip or Chew Tobacco: No; Tobacco Cessation Education Requested by Patient: No Hx Alcohol Use: No Hx Substance Use: No Preferred Language: French Communication Ability: Effective Visual Impairment: No Limitations Hearing Ability: Cochlear Implant Evs Attendant Required: No Beliefs That Will Affect Care: None marital status: Current Living Situation: Spouse Current Living Situation Comment: with and daughter current occupational status: retired How many Children do You have: 1 Other Information That Helps Us Care for You: No Feels Safe at Home: Yes Safety Concerns: Feels Safe At This Time Childhood Exposure to Second-Hand Smoke: Yes Diet: regular Diet Comment: regular caffeine: Yes (Soda 6 per day. Coffee 1 cup per day.) during the past year weight has: remained stable Dental Care, Regularly: No Physical Activity Frequency: Daily Seatbelt Use: sometimes Sunscreen Use: No Assistive Devices: Cane and Walker Assistive Devices Comment: cane at bedside Review of Systems Review of Systems: All systems reviewed & are unremarkable except as noted in HPI & below Physical Exam Constitutional: WD/WN, vitals as above ENMT: external ear and nose normal, oropharynx normal Respiratory: normal respiratory effort, lungs clear to auscultation Cardiovascular: Rate/Rhythm: + tachycardic and + irregularly irregular Heart Sounds: no murmur Extremities: normal capillary refill and + pedal edema; no calf tenderness Gastrointestinal (Abdomen): Percussion/Palpation: + abdomen tender (epigastric) and abdomen soft; no guarding and abdomen not rigid Musculoskeletal: no cyanosis or clubbing, extremities motor strength 5/5 Skin: no rashes, warm and dry Neurologic: moves all extremities and awake; not confused Psychiatric: A+Ox3, euthymic affect Genitourinary: no CVA tenderness Results & Data Results & Data Vital Signs (Past 12 Hours) Vital Signs Temp Pulse Pulse Resp BP BP Pulse Ox 12/08/22 17:58 156 H 12/08/22 17:32 95 H 22 113/67 97 12/08/22 15:40 36.7 C 88 16 109/72 93 O2 Del Method 12/08/22 17:58 12/08/22 17:32 12/08/22 15:40 Room Air Laboratory Results Abnormal lab results 12/08/22 12/08/22 12/08/22 Range/Units 16:00 16:00 16:00 RBC 4.15 L (4.70-6.10) M/uL Hgb 13.3 L (14.0-18.0) g/dl Hct 40.3 L (42.0-52.0) % RDW Std Deviation 62.6 H (36.4-46.3) fL RDW Coeff of Herrera 18.1 H (11.5-14.5) % Lymph # (Auto) 0.72 L (1.2-3.4) K/uL PT 15.6 H (9.0-12.0) Seconds INR 1.5 H (0.9-1.1) APTT 31.1 H (21.0-31.0) Seconds BUN 37 H (6-23) mg/dl Creatinine 1.66 H (0.6-1.4) mg/dl BUN/Creatinine Ratio 22.3 H (10-20) Total Bilirubin 3.6 H (0.2-1.0) mg/dl AST 67 H (13-39) U/L ALT 91 H (7-52) U/L Alkaline Phosphatase 143 H (34-104) U/L Diagnostic Findings XR chest 1V not portable CLINICAL HISTORY: weakness COMPARISON STUDY: Chest radiograph November 16, 2022. FINDINGS: There is mild elevation of the right hemidiaphragm. Small right pleural effusion has decreased in size since prior exam. There is no evidence for pulmonary edema. Moderate cardiomegaly is again noted. There is a prosthetic aortic valve. No pneumothorax. There is no consolidation to suggest pneumonia. IMPRESSION: 1. Moderate cardiomegaly. No evidence for pulmonary edema. 2. Small right pleural effusion, decreased in size since prior exam. Medications Administered ER Medications Given: Lasix 40mg IV ECG Rate (beats per minute): 97 Rhythm: atrial fibrillation Findings: + nonspecific-ST abn (widespread) Comparison ECG Date: from (November 11, 2022) Change: the following changes noted (Atrial fibrillation replaced sinus rhythm) Code Status & VTE Plan Code Status Full VTE Prophylaxis Plan VTE Prophylaxis will be ordered: Yes PG Care Time/CCT Total # of Minutes Spent Total Time Spent with Patient: Total time spent is greater than 50% in coordination of care (as documented) at patient's floor/unit and/or counseling patient: Coding Level of Care Code 66553 INT INP/OBS CARE 3/75MIN Diagnoses Elevated LFTs R79.89 Atrial fibrillation with rapid ventricular response I48.91 S/p TAVR (transcatheter aortic valve replacement), bioprosthetic Z95.3 CHF (congestive heart failure) I50.9 BPH with obstruction/lower urinary tract symptoms N40.1; N13.8 Depression with anxiety F41.8
[2022-12-08 22:59] LABS: Appearance Urine Clear (Clear); Bilirubin Urine Negative (Negative); Blood Urine Negative (Negative); Color Urine Yellow; Glucose Urine UA Negative (Negative); Ketones Urine Negative (Negative); Leukocyte Esterase Urine Negative (Negative); Nitrite Urine Negative (Negative); Protein Urine Negative (Negative); Specific Gravity Urine 1.022 (1.000-1.030); Urobilinogen Urine Negative (Negative)
[2022-12-08] MEDS: TAMSULOSIN HCL 0.4 MG CAP PO SCH (23:00)
[2022-12-08] MEDS: ATORVASTATIN 40 MG TAB PO SCH (23:00)
[2022-12-08 23:09] LABS: Lipase 64 U/L (11-82)
[2022-12-08] MEDS ORDERED: Heparin IV Adult Wt-Based Standard *NO* Bolus Protocol IV SCH (23:36)
[2022-12-08] MEDS ORDERED: PHYTONADIONE 5 MG in DEXTROSE 5% 50 ML IV STA (23:52)
[2022-12-09] MEDS: METOPROLOL TARTRATE 25 MG TAB PO SCH ×3 (00:22→20:19)
[2022-12-09] MEDS: HEPARIN SODIUM/DEXTROSE 25,000 UNITS/500 ML BAG IV SCH (00:59)
--- NOTE | 2022-12-09 02:39 | Surgery Consultation ---
Date of Consultation December 09, 2022 Assessment & Plan (1) Elevated LFTs: Patient has been admitted on the hospitalist service. We recommend proceeding as follows: The patient is noted to have a distended gallbladder with potential sludge or stones, however the patient does not have evidence of cholecystitis on this imaging. Due to the patient's underlying symptomatology the primary service has ordered additional imaging included a liver ultrasound. We will follow for the results of this to determine if patient has acute cholecystitis. Serial labs to be followed Primary service has opted to wait for the gallbladder ultrasound to determine if a gastroenterology consultation or MRCP is required based on the patient's elevated LFTs. We will follow for the results of the ultrasound as noted above. Decision about whether or not patient will require cholecystectomy will be dependent on the above pending items including gallbladder ultrasound, serial lab results, and recommendations by gastroenterology if they are consulted. It is also noteworthy mention that the patient was noted to have atrial fibrillation with rapid ventricular response and has had a recent transcatheter aortic valve replacement. He will require medical optimization for these problems prior to entertaining any surgical intervention and cardiology has been consulted to assist with this problem. Additional recommendations were forthcoming based on his clinical course as it unfolds Supervising Physician Co-Signing Physician Notes I personally saw and evaluated the patient with Ray Banegas PA-C and agree with the assessment and plan. 76-year-old male with gallbladder distention on CT scan as well as elevated LFTs, history of TAVR [address] images and results were personally viewed by myself, no signs of acute cholecystitis on CT or ultrasound He does have elevated bilirubin for which GI has been consulted and ordered an MRCP No plans for cholecystectomy this admission due to his recent valve replacement We will follow along the results of the MRCP and to see if any GI intervention is warranted History of Present Illness Reason for Consultation: Possible biliary colic Attending Physician: Wilver Infante MD History of Present Illness This is a 76-year-old male who was admitted to the hospital secondary to some shortness of breath as well as decreased oral intake and jaundice. Patient is also noted to have approximately 18 pound weight loss over the past month. Because of the symptoms he was seen by his primary care physician who sent him to the emergency department. At the time of my interview I asked the patient if he was experiencing abdominal pain and he said he did not particular have any pain. He said that he does sometimes get nauseated after eating and because of that he has been eating and drinking less. He does note that his stomach does feel "sour" after eating. He denies any diarrhea. He denies any fevers, shakes, or chills. He notes that his shortness of breath has been present for quite some time and does not appear to be getting any worse. He denies any chest pain or lower extremity edema. Patient says that he has not had any abdominal surgeries to the best of his knowledge. It is nowhere the mention that the patient had a transcatheter aortic valve replacement on November 19 of this year at [facility]. Since arrival to the hospital the patient has had labs and imaging which I independent reviewed. A chest x-ray showed no evidence of pulmonary edema. Patient was noted to have a small right pleural effusion. CT scan of the chest showed no evidence of pulmonary emboli. There was a moderate right-sided pleural effusion noted. Patient did have a CT scan of the abdomen pelvis as well that showed the gallbladder was distended with potential stone/sludge. There is no evidence of acute cholecystitis or biliary ductal dilatation however. There was some prominence of the ascending colon which was felt to potentially represent colitis. Labs include a CBC her white blood cell count platelet count were normal. His hemoglobin and hematocrit were 13.3 and 40.3. Patient's INR is noted to be 1.5. Chemistry profile shows sodium and potassium are normal. His BUN and creatinine were 37-1.6. Review of records show that this level of creatinine was near his baseline. Patient was noted to have an elevated total bilirubin at 3.6. AST and ALT were 67 and 91 respectively. The patient was also noted to have an elevated alkaline phosphatase level at 143. Urinalysis was not indicative of infection and a COVID test was negative. At the time of my interview the patient was resting comfortably in bed and he was in no distress. Allergies Allergy/AdvReac Type Severity Reaction Status Date / Time baclofen Allergy Unknown PT & PT'S Verified 12/08/22 20:11 SPOUSE DENIES ANY ALLERGIES OR SENSATIVITY TO MED cyclobenzaprine Allergy Unknown PT & PT'S Verified 12/08/22 20:11 [From Flexeril] SPOUSE DENIES ANY ALLERGIES OR SENSATIVITY TO MED doxazosin Allergy Unknown PT & PT'S Verified 12/08/22 20:11 SPOUSE DENIES ANY ALLERGIES OR SENSATIVITY TO MED doxycycline Allergy Unknown PT & PT'S Verified 12/08/22 20:11 SPOUSE DENIES ANY ALLERGIES OR SENSATIVITY TO MED duloxetine Allergy Unknown PT & PT'S Verified 12/08/22 20:11 SPOUSE DENIES ANY ALLERGIES OR SENSATIVITY TO MED gabapentin Allergy Unknown PT & PT'S Verified 12/08/22 20:11 SPOUSE DENIES ANY ALLERGIES OR SENSATIVITY TO MED lisinopril Allergy Unknown PT & PT'S Verified 12/08/22 20:11 SPOUSE DENIES ANY ALLERGIES OR SENSATIVITY TO MED naproxen Allergy Unknown PT & PT'S Verified 12/08/22 20:11 SPOUSE DENIES ANY ALLERGIES OR SENSATIVITY TO MED nortriptyline [From Pamelor] Allergy Unknown PT & PT'S Verified 12/08/22 20:11 SPOUSE DENIES ANY ALLERGIES OR SENSATIVITY TO MED oxcarbazepine Allergy Unknown PT & PT'S Verified 12/08/22 20:11 SPOUSE DENIES ANY ALLERGIES OR SENSATIVITY TO MED Penicillins Allergy Unknown PT & PT'S Verified 12/08/22 20:11 SPOUSE DENIES ANY ALLERGIES OR SENSATIVITY TO MED Home Medications Medication Instructions Recorded Confirmed Type acetaminophen 500 mg tablet 1,000 mg PO TID PRN fever or pain 11/18/18 12/08/22 Rx #90 tabs aspirin 81 mg tablet,delayed 81 mg PO DAILY #90 tabs 06/09/22 12/08/22 Rx release metoprolol succinate 25 mg 12.5 mg PO QAM #30 tabs 08/22/22 12/08/22 Rx tablet,extended release 24 hr Wheelchair (Manual) #1 ea 09/17/22 12/08/22 Rx Oxygen Home #1 ea 10/12/22 12/08/22 Rx atorvastatin 80 mg tablet 80 mg PO HS #90 tabs 11/05/22 12/08/22 Rx bupropion HCl 150 mg 24 hr tablet, 150 mg PO QAM #90 tabs 11/05/22 12/08/22 Rx extended release (Wellbutrin XL) fluticasone propionate 50 2 spray intranasal DAILY #48 grams 11/05/22 12/08/22 Rx mcg/actuation nasal spray,suspension (Flonase Allergy Relief) pantoprazole 40 mg tablet,delayed 40 mg PO DAILY #90 tabs 11/05/22 12/08/22 Rx release paroxetine HCl 40 mg tablet 40 mg PO QAM #90 tabs 11/05/22 12/08/22 Rx potassium chloride 20 mEq 20 meq PO QAM #90 tabs 11/05/22 12/08/22 Rx tablet,extended release tamsulosin 0.4 mg capsule 0.4 mg PO HS #90 caps 11/05/22 12/08/22 Rx furosemide 40 mg tablet (Lasix) 40 mg PO DAILY 11/09/22 12/08/22 History loratadine 10 mg tablet 10 mg PO DAILY 11/09/22 12/08/22 History Patient History Medical History Acute heart failure with preserved ejection fraction Aneurysm, thoracic aortic pt unaware of size, follows with Dr. Paige Aortic atherosclerosis Aortic stenosis, severe BPH with obstruction/lower urinary tract symptoms CAD (coronary artery disease) Cervical disc disease Chronic sinusitis Cognitive disorder Coronary artery calcification Depression with anxiety Dyslipidemia Glaucoma Hearing loss Hepatic steatosis History of central retinal vein occlusion Hypertension Iron deficiency Lower GI bleed no current issues Lumbar spinal stenosis Mitral regurgitation MVP (mitral valve prolapse) Osteoarthritis PAC (premature atrial contraction) PAF (paroxysmal atrial fibrillation) Sleep apnea Trigeminal neuralgia received radiation for this, having numbess/tingling to right side of face since this Vitamin D deficiency Surgical History H/O cataract extraction (2013) H/O colonoscopy History of cochlear implant (01/12/12) BILATERAL History of pilonidal cyst removed History of umbilical hernia repair S/P foot surgery, right (12/2010) removal of heel spur S/P laser trabeculoplasty of eye (10/2014) b/l S/P nasal endoscopy with nasal polypectomy (2011) S/P rotator cuff repair b/l shoulders S/p TAVR (transcatheter aortic valve replacement), 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) Family History Mother No pertinent family history Other Hypertension Denies family history of Ovarian cancer Prostate cancer Diabetes Myocardial infarction Breast cancer Colorectal cancer Cancer Social History Smoking Status: Never smoker Second Hand Exposure: No; Do You Dip or Chew Tobacco: No; Tobacco Cessation Education Requested by Patient: No Hx Alcohol Use: No Hx Substance Use: No Preferred Language: Bolivian Communication Ability: Effective Visual Impairment: No Limitations Hearing Ability: Cochlear Implant Contracts Representative Required: No Beliefs That Will Affect Care: None marital status: Current Living Situation: Spouse Current Living Situation Comment: with and daughter current occupational status: retired How many Children do You have: 1 Other Information That Helps Us Care for You: No Feels Safe at Home: Yes Safety Concerns: Feels Safe At This Time Childhood Exposure to Second-Hand Smoke: Yes Diet: regular Diet Comment: regular caffeine: Yes (Soda 6 per day. Coffee 1 cup per day.) during the past year weight has: remained stable Dental Care, Regularly: No Physical Activity Frequency: Daily Seatbelt Use: sometimes Sunscreen Use: No Assistive Devices: Cane and Walker Assistive Devices Comment: cane at bedside Review of Systems Constitutional: + weakness; no fever and no chills Ear, Nose, Mouth, Throat: + hearing loss Respiratory: + dyspnea Cardiovascular: no chest pain Gastrointestinal: as per Subjective / HPI Postprandial nausea and vomiting Genitourinary: no dysuria Musculoskeletal: no back pain Integumentary: + yellowing of the skin; no rash Neurologic: no localized weakness Physical Exam Constitutional: WD/WN, vitals as above Eyes: Slight scleral jaundice noted ENMT: Ears: + hearing impairment Patient required hearing aids in order to go to hear effectively Neck: trachea midline Respiratory: normal respiratory effort; no respiratory distress and no labored breathing Breath sounds are decreased at the bases with the right being greater than left. No use of accessory muscles were used to aid in respiration Cardiovascular: Rate/Rhythm: regular rate and regular rhythm Gastrointestinal (Abdomen): Abdomen is soft, nondistended, nonrigid, and nontender to palpation. There is no rebound tenderness or guarding Musculoskeletal: No calf tenderness Skin: no rashes Neurologic: moves all extremities Results & Data Vital Signs (Past 12 Hours) Vital Signs Temp Pulse Pulse Resp BP BP Pulse Ox 12/08/22 22:40 12/09/22 00:55 36.5 C 124 H 20 101/70 95 12/09/22 00:40 36.4 C L 151 H 20 127/92 96 12/09/22 00:25 36.5 C 135 H 18 92/71 L 96 12/08/22 22:16 36.5 C 106 H 18 125/86 96 12/08/22 21:36 12/08/22 21:00 107 H 18 95 12/08/22 17:58 156 H 12/08/22 17:32 95 H 22 113/67 97 12/08/22 15:40 36.7 C 88 16 109/72 93 O2 Del Method 12/08/22 22:40 Room Air 12/09/22 00:55 Room Air 12/09/22 00:40 Room Air 12/09/22 00:25 Room Air 12/08/22 22:16 Room Air 12/08/22 21:36 Room Air 12/08/22 21:00 12/08/22 17:58 12/08/22 17:32 12/08/22 15:40 Room Air PG Care Time/CCT Total # of Minutes Spent Total Time Spent with Patient: Total time spent is greater than 50% in coordination of care (as documented) at patient's floor/unit and/or counseling patient: Coding Level of Care Code 68120 INT INP/OBS CARE 3/75MIN Diagnoses Elevated LFTs R79.89
[2022-12-09 07:40] LABS: Albumin Globulin Ratio 1.2 (0.9-2); Albumin Level 3.8 gm/dl (3.4-5.0); BUN Creatinine Ratio 22.1 (10-20); Bilirubin,Total 3.8 mg/dl (0.2-1.0); Calcium 9.8 mg/dl (8.6-10.3); Creatinine Clr Calc Pharmacy 42.1 ml/min; Est GFR (African American) 50.8 ml/min; Est GFR (Non-African American) 43.8 ml/min; Globulin 3.1 gm/dl (2.5-4.0); Potassium 4.3 mmol/L (3.5-5.1); Total Protein 6.9 gm/dl (6.0-8.3)
[2022-12-09] MEDS: POTASSIUM CHLORIDE CRTAB 20 MEQ TABCR PO SCH (07:42)
[2022-12-09] MEDS: PANTOprazole 40 MG TAB PO SCH (07:42)
[2022-12-09] MEDS: ASPIRIN 81 MG ECTAB PO SCH (07:42)
[2022-12-09] MEDS: PARoxetine HCL 20 MG TAB PO SCH (07:42)
[2022-12-09] MEDS: LORATADINE 10 MG TAB PO SCH (07:42)
[2022-12-09] MEDS: buPROPion XL 150 MG TABCR PO SCH (07:43)
--- NOTE | 2022-12-09 07:44 | Hospitalist Progress Note ---
Date of Service December 09, 2022 Assessment & Plan (1) Elevated LFTs: (2) Atrial fibrillation with rapid ventricular response: (3) S/p TAVR (transcatheter aortic valve replacement), bioprosthetic: (4) CHF (congestive heart failure): (5) BPH with obstruction/lower urinary tract symptoms: (6) Depression with anxiety: Plan Yimi is a 76 year old male with history of Paroxysmal A Fib, CHF (HFpEF), S/p TAVR, HTN, trigeminal neuralgia, BPH, CAD, pHTN, gout, chronic anticoagulation, depression, anxiety, glaucoma, osteoarthritis, and lumbar spinal stenosis who presented from PCP office for concerns of jaundice. Patient was found to have elevated LFTs and Bilirubin levels and was admitted for evaluation. Elevated LFTs: - Elevation of LFTs and Bilirubin level on admission - Imaging: * CXR: 1. Moderate cardiomegaly. No evidence for pulmonary edema. 2. Small right pleural effusion, decreased in size since prior exam. * Chest CTA: 1. No pulmonary embolus identified. 2. Atherosclerotic changes of the aorta. No aortic aneurysm. 3. Moderate right-sided pleural effusion. 4. Dependent atelectasis on the right. Mild scattered atelectasis bilaterally. * CT AP 1. Mild prominence of the wall of the ascending colon may be secondary to underdistention. Colitis is not exited. 2. Hepatic steatosis. Small right hepatic cyst. 3. Small amount of fluid in the pelvis. Trace perihepatic fluid. 4. Please see accompanying CT chest for further details. * US Liver 1. Hepatic steatosis. 2. Distended gallbladder. No shadowing gallstones are identified and there is no clear sonographic evidence of acute cholecystitis. Clinical and laboratory correlation will be required. If there is clinical concern for acalculous cholecystitis a hepatobiliary scan should be considered. 3. Trace perihepatic ascites. 4. Right pleural effusion. - Given patient's history including vague abdominal pain, anorexia, and notable weight loss, most drastic over the last month, combined with acute presentation of jaundice, elevated bilirubin, and elevated LFTs, clinical picture is concerning for malignancy at this time. * Imaging thus far not indicative of solid tissue mass * Imaging also not consistent with presentation of liver cirrhosis * Peripheral smear ordered for evaluation of liquid tumors * Upper GI malignancy (esophageal/stomach) cancer remains on differential, would strongly support evaluation with EGD - GI Consult - Recommending MRCP and liver serologies * Contacted GI regarding concern for UGI malignancy Atrial fibrillation with rapid ventricular response: - Chronic paroxysmal AFib, with history of RVR - Now noted to be in NSR - Cardiology Consult: Recommending ongoing Metoprolol and anticoagulation (with conversion to Eliquis upon discharge, curently on Heparin) S/p TAVR (transcatheter aortic valve replacement), bioprosthetic: - Recently performed on November 19 - he reports no change in his shortness of breath since this CHF (congestive heart failure): - Patient currently euvolemic - Continu Lasix BPH with obstruction/lower urinary tract symptoms: - Continue tamsulosin Depression with anxiety: - Continue Bupropion 150 mg q24h and Paroxetine 40 mg QAM Code: Full VTE Prophylaxis - IV Heparin (Eliquis on discharge) Diet - low fat, low Na, NPO after midnight Disposition - admit to PCU Admission and Anticipated Discharge Date Admission Date: December 08, 2022 Supervising Physician Co-Signing Physician Notes I personally examined the patient and verified all tobar points of history and exam, discussed case, and agree with decision making with Dr Yeung weight loss - ?30lbs last 6months and ~10-15lbs last month. zero appetite, occassional nausea, early satiety, "sour stomach" vitals noted nad but fatigued and wasted appearing abd soft nd nt weight loss, jaundice, elevated INR - biliary pathology vs malignancy vs both. No overt solid tumors seen on extensive CT scanningcheck peripheral smear, discussed with GIanticipate endoscopic evaluation in the next 1-2 days depending on Endo lab availability. A-fibrate now controlled, on heparinbut can hold for procedures otherwise as above Subjective 12/09: Yimi was resting comfortably in bed upon arrival in no acute distress. Upon discussion, he notes that he has been experiencing vague epigastric/RUQ discomfort. He notes that this has been most significant over the last month, bu t has been present since at least [place]. Patient notes that over the last month he has lost at least 20 lbs. Family corroborates by detailing episodes where he will go for days without eating due to nausea. Patient denies any recent emesis, diarrhea, or constipation. He has not experienced any chest pain or dyspnea. Patient notes that he was ultimately sent in from his PCP because of concern for jaundice. Physical Exam Physical Exam: Gen: NAD, alert, interactive, mild jaundice & scleral icterus HEENT: Supple, no LAD, no thyromegaly, no JVD Resp:Non-labored, no wheezing/rhonchi/rales, CTAB CV:RRR, normal S1/S2, systolic murmur present at RUSB/LUSB Abd: Soft, non-distended, no TTP, normoactive bowels, no masses, Smith sign negative Extr: 2+ dp bilaterally, no edema Skin: No rashes lesions or erythema Results & Data Results & Data Vital Signs (Past 12 Hours) Vital Signs Temp Pulse Pulse Resp BP Pulse Ox O2 Del Method 12/08/22 22:19 110 H 12/09/22 02:31 36.6 C 145 H 20 102/65 91 Nasal Cannula 12/08/22 22:40 Room Air 12/09/22 00:55 36.5 C 124 H 20 101/70 95 Room Air 12/09/22 00:40 36.4 C L 151 H 20 127/92 96 Room Air 12/09/22 00:25 36.5 C 135 H 18 92/71 L 96 Room Air 12/08/22 22:16 36.5 C 106 H 18 125/86 96 Room Air 12/08/22 21:36 Room Air 12/08/22 21:00 107 H 18 95 O2 Flow Rate 12/08/22 22:19 12/09/22 02:31 4 12/08/22 22:40 12/09/22 00:55 12/09/22 00:40 12/09/22 00:25 12/08/22 22:16 12/08/22 21:36 12/08/22 21:00 Resident Activity Tracking Resident Involvement: Resident Care Provided Care Provided: Adult Hospital Medicine
[2022-12-09 07:48] LABS: Basophils # (auto) 0.08 K/uL (0-0.2); Basophils % (auto) 1.6 %; Eosinophils # (auto) 0.06 K/uL (0-0.50); Eosinophils % (auto) 1.2 %; Hematocrit (blood only) 41.1 % (42.0-52.0); Hemoglobin 13.6 g/dl (14.0-18.0); Immature Granulocytes # (auto) 0.02 K/uL (0.01-0.20); Immature Granulocytes % (auto) 0.4 %; Lymphocytes # (auto) 0.83 K/uL (1.2-3.4); Lymphocytes % (auto) 16.3 %; Mean Corpuscular Hemoglobin 32.3 pg (25.0-34.0); Mean Corpuscular Hgb Conc 33.1 g/dL (32.0-36.0); Mean Corpuscular Volume 97.6 fL (80.0-100.0); Mean Platelet Volume 11.8 fL (9.4-12.4); Monocytes # (auto) 0.36 K/uL (0.11-0.59); Monocytes % (auto) 7.1 %; Neutrophils # (auto) 3.74 K/uL (1.40-6.50); Neutrophils % (auto) 73.4 %; Nucleated RBC # (auto) 0.05 K/uL (0-0.12); Platelet Count 192 K/uL (130-400); RDW Coefficient of Variation 18.2 % (11.5-14.5); RDW Standard Deviation 63.7 fL (36.4-46.3); Red Blood Count 4.21 M/uL (4.70-6.10); White Blood Count 5.09 K/ul (4.8-10.8)
[2022-12-09 08:24] LABS: INR 1.4 (0.9-1.1); Partial Thromboplastin Ratio 4.6; Prothrombin Time 14.9 Seconds (9.0-12.0)
[2022-12-09 08:35] LABS: Partial Thromboplastin Time 128.7 Seconds (21.0-31.0)
[2022-12-09 08:40] LABS: Thyroid Stimulating Hormone 7.867 uIu/ml (0.300-4.500)
[2022-12-09] MEDS ORDERED: FUROSEMIDE 40 MG TAB PO SCH (09:00)
[2022-12-09 09:17] LABS: T4 Free Thyroxine 1.38 ng/dl (0.61-1.60)
--- NOTE | 2022-12-09 09:28 | Ultrasound Report ---
ULTRASOUND RIGHT UPPER QUADRANT ABDOMEN CLINICAL HISTORY: Elevated hepatic transaminases. COMPARISON STUDY: Abdominal CT dated 12/08/2022. TECHNIQUE: Real-time, grayscale, and color flow sonography of the right upper quadrant of the abdomen was performed. Images are reviewed in the transverse and longitudinal planes. FINDINGS: Liver: The liver is top normal in size and demonstrates heterogeneously increased echotexture indicat ing steatosis. There is no intrahepatic biliary ductal dilatation. The main portal vein is patent. Gallbladder: The gallbladder is distended but otherwise normal as imaged. No shadowing gallstones are identified. There is no gallbladder wall thickening or pericholecystic fluid. A sonographic Smith's sign is reportedly absent. The common bile duct measures up to 0.3 cm in diameter. Pancreas: Visualized portions of the pancreatic head are grossly unremarkable. The majority of the pa ncreas was not well visualized due to overlying bowel gas. Right kidney: Survey images of the right kidney demonstrate normal size and echotexture. There is no hydronephrosis. A 1.7 cm cyst is seen in the lower pole. Ascites: There is trace perihepatic ascites. Pleural spaces: A right pleural effusion is noted. IMPRESSION: 1. Hepatic steatosis. 2. Distended gallbladder. No shadowing gallstones are identified and there is no clear sonographic ev idence of acute cholecystitis. Clinical and laboratory correlation will be required. If there is clin ical concern for acalculus cholecystitis a hepatobiliary scan should be considered. 3. Trace perihepatic ascites. 4. Right pleural effusion. ACT 112: Negative or not required by law. Electronically signed by: Kimo Mora M.D. 12/09/2022 9:26 AM
--- NOTE | 2022-12-09 10:00 | Ultrasound Report ---
RIGHT LOWER EXTREMITY VENOUS DOPPLER CLINICAL HISTORY: right leg swelling, calf tenderness COMPARISON STUDY: No previous studies for comparison. TECHNIQUE: Sonography of the deep venous system of the right lower extremity was performed. Compress ion and augmentation were evaluated. FINDINGS: The right common femoral, superficial femoral and popliteal veins were compressible. There is minimal wall thickening of the mid right femoral vein. Augmentation was normal. Flow was shown wi thin the deep calf vessels. IMPRESSION: 1. No evidence of acute deep venous thrombus within the right lower extremity. 2. Minimal wall thickening of the mid right femoral vein. This favors minimal chronic thrombus. ACT 112: Negative or not required by law. Electronically signed by: Kervin Bernard M.D. 12/09/2022 9:59 AM
--- NOTE | 2022-12-09 10:19 | Gastrointestinal Consultation ---
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 Thank you for allowing us to participate in the care of this patient. Please call with any acute changes, questions or concerns. Please see addendum below wi th additional recommendation from my supervising physician. Supervising Physician Co-Signing Physician Notes I performed a history and physical examination of the patient today, including specifically on physical exam - soft abdomen. I have discussed the patient's management with the advanced practitioner. Please refer to the nurse practitioner's note for the documented findings and plan of care. Elevated LFTs post recent TAVR. Know with GB dyskinesia. Recommend: MRCP. 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 GI was asked to evaluate. Pt was seen and evaluated, chart reviewed. He is a poor historian. He notes intermittent lower abd pain. This has been present for a few weeks. He had mild nausea, no vomiting and some queasy feeling with attempted PO intake. He notes around the same time he had change in bowel habits w/ diarrhea. No black or bloody stools. He also suggests some fatigue and weakness. Tbili 3.8 AST 62 ALT 81 ALKP 136 ABD US 2022: . Hepatic steatosis. Distended gallbladder. No shadowing gallstones are identified and there is no clear sonographic evidence of acute cholecystitis. Clinical and laboratory correlation will be required. If there is clinical concern for acalculus cholecystitis a hepatobiliary scan should be considered.Trace perihepatic ascites. Right pleural effusion. CTAP 2022: Mild prominence of the wall of the ascending colon may be secondary to underdistention. Colitis is not exited. Hepatic steatosis. Small right hepatic cyst. Small amount of fluid in the pelvis. Trace perihepatic fluid. Please see accompanying CT chest for further details. Allergies Allergy/AdvReac Type Severity Reaction Status Date / Time baclofen Allergy Unknown PT & PT'S Verified 12/08/22 20:11 SPOUSE DENIES ANY ALLERGIES OR SENSATIVITY TO MED cyclobenzaprine Allergy Unknown PT & PT'S Verified 12/08/22 20:11 [From Flexeril] SPOUSE DENIES ANY ALLERGIES OR SENSATIVITY TO MED doxazosin Allergy Unknown PT & PT'S Verified 12/08/22 20:11 SPOUSE DENIES ANY ALLERGIES OR SENSATIVITY TO MED doxycycline Allergy Unknown PT & PT'S Verified 12/08/22 20:11 SPOUSE DENIES ANY ALLERGIES OR SENSATIVITY TO MED duloxetine Allergy Unknown PT & PT'S Verified 12/08/22 20:11 SPOUSE DENIES ANY ALLERGIES OR SENSATIVITY TO MED gabapentin Allergy Unknown PT & PT'S Verified 12/08/22 20:11 SPOUSE DENIES ANY ALLERGIES OR SENSATIVITY TO MED lisinopril Allergy Unknown PT & PT'S Verified 12/08/22 20:11 SPOUSE DENIES ANY ALLERGIES OR SENSATIVITY TO MED naproxen Allergy Unknown PT & PT'S Verified 12/08/22 20:11 SPOUSE DENIES ANY ALLERGIES OR SENSATIVITY TO MED nortriptyline [From Pamelor] Allergy Unknown PT & PT'S Verified 12/08/22 20:11 SPOUSE DENIES ANY ALLERGIES OR SENSATIVITY TO MED oxcarbazepine Allergy Unknown PT & PT'S Verified 12/08/22 20:11 SPOUSE DENIES ANY ALLERGIES OR SENSATIVITY TO MED Penicillins Allergy Unknown PT & PT'S Verified 12/08/22 20:11 SPOUSE DENIES ANY ALLERGIES OR SENSATIVITY TO MED Home Medications Medication Instructions Recorded Confirmed Type acetaminophen 500 mg tablet 1,000 mg PO TID PRN fever or pain 11/18/18 12/08/22 Rx #90 tabs aspirin 81 mg tablet,delayed 81 mg PO DAILY #90 tabs 06/09/22 12/08/22 Rx release metoprolol succinate 25 mg 12.5 mg PO QAM #30 tabs 08/22/22 12/08/22 Rx tablet,extended release 24 hr Wheelchair (Manual) #1 ea 09/17/22 12/08/22 Rx Oxygen Home #1 ea 10/12/22 12/08/22 Rx atorvastatin 80 mg tablet 80 mg PO HS #90 tabs 11/05/22 12/08/22 Rx bupropion HCl 150 mg 24 hr tablet, 150 mg PO QAM #90 tabs 11/05/22 12/08/22 Rx extended release (Wellbutrin XL) fluticasone propionate 50 2 spray intranasal DAILY #48 grams 11/05/22 12/08/22 Rx mcg/actuation nasal spray,suspension (Flonase Allergy Relief) pantoprazole 40 mg tablet,delayed 40 mg PO DAILY #90 tabs 11/05/22 12/08/22 Rx release paroxetine HCl 40 mg tablet 40 mg PO QAM #90 tabs 11/05/22 12/08/22 Rx potassium chloride 20 mEq 20 meq PO QAM #90 tabs 11/05/22 12/08/22 Rx tablet,extended release tamsulosin 0.4 mg capsule 0.4 mg PO HS #90 caps 11/05/22 12/08/22 Rx furosemide 40 mg tablet (Lasix) 40 mg PO DAILY 11/09/22 12/08/22 History loratadine 10 mg tablet 10 mg PO DAILY 11/09/22 12/08/22 History Patient History Medical History Acute heart failure with preserved ejection fraction Aneurysm, thoracic aortic pt unaware of size, follows with Dr. Paige Aortic atherosclerosis Aortic stenosis, severe BPH with obstruction/lower urinary tract symptoms CAD (coronary artery disease) Cervical disc disease Chronic sinusitis Cognitive disorder Coronary artery calcification Depression with anxiety Dyslipidemia Glaucoma Hearing loss Hepatic steatosis History of central retinal vein occlusion Hypertension Iron deficiency Lower GI bleed no current issues Lumbar spinal stenosis Mitral regurgitation MVP (mitral valve prolapse) Osteoarthritis PAC (premature atrial contraction) PAF (paroxysmal atrial fibrillation) Sleep apnea Trigeminal neuralgia received radiation for this, having numbess/tingling to right side of face since this Vitamin D deficiency Surgical History H/O cataract extraction (2013) H/O colonoscopy History of cochlear implant (01/12/12) BILATERAL History of pilonidal cyst removed History of umbilical hernia repair S/P foot surgery, right (12/2010) removal of heel spur S/P laser trabeculoplasty of eye (10/2014) b/l S/P nasal endoscopy with nasal polypectomy (2011) S/P rotator cuff repair b/l shoulders S/p TAVR (transcatheter aortic valve replacement), 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) Family History Mother No pertinent family history Other Hypertension Denies family history of Ovarian cancer Prostate cancer Diabetes Myocardial infarction Breast cancer Colorectal cancer Cancer Social History Smoking Status: Never smoker Second Hand Exposure: No; Do You Dip or Chew Tobacco: No; Tobacco Cessation Education Requested by Patient: No Hx Alcohol Use: No Hx Substance Use: No Preferred Language: Japanese Communication Ability: Effective Visual Impairment: No Limitations Hearing Ability: Cochlear Implant Inbound Telemarketer Required: No Beliefs That Will Affect Care: None marital status: Current Living Situation: Spouse Current Living Situation Comment: with and daughter current occupational status: retired How many Children do You have: 1 Other Information That Helps Us Care for You: No Feels Safe at Home: Yes Safety Concerns: Feels Safe At This Time Childhood Exposure to Second-Hand Smoke: Yes Diet: regular Diet Comment: regular caffeine: Yes (Soda 6 per day. Coffee 1 cup per day.) during the past year weight has: remained stable Dental Care, Regularly: No Physical Activity Frequency: Daily Seatbelt Use: sometimes Sunscreen Use: No Assistive Devices: Cane, CPAP, Oxygen - at Night and Walker Assistive Devices Comment: cane at bedside Review of Systems Review of Systems: All systems reviewed & are unremarkable except as noted in HPI & below Physical Exam Constitutional: WD/WN, vitals as above Respiratory: normal respiratory effort, lungs clear to auscultation Cardiovascular: Rate/Rhythm: regular rate and regular rhythm Gastrointestinal (Abdomen): normal bowel sounds, soft, nontender, no hepatosplenomegaly Skin: no rashes, warm and dry Results & Data Vital Signs (Past 12 Hours) Vital Signs Temp Pulse Pulse Pulse Resp BP Pulse Ox 12/09/22 09:06 12/09/22 08:01 36.6 C 60 19 109/73 96 12/08/22 22:19 110 H 12/09/22 02:31 36.6 C 145 H 20 102/65 91 12/08/22 22:40 12/09/22 00:55 36.5 C 124 H 20 101/70 95 12/09/22 00:40 36.4 C L 151 H 20 127/92 96 12/09/22 00:25 36.5 C 135 H 18 92/71 L 96 12/08/22 22:16 36.5 C 106 H 18 125/86 96 O2 Del Method O2 Flow Rate 12/09/22 09:06 Nasal Cannula 4 12/09/22 08:01 Nasal Cannula 4 12/08/22 22:19 12/09/22 02:31 Nasal Cannula 4 12/08/22 22:40 Room Air 12/09/22 00:55 Room Air 12/09/22 00:40 Room Air 12/09/22 00:25 Room Air 12/08/22 22:16 Room Air Laboratory Results 12/09/22 12/09/22 12/09/22 Range/Units 06:55 06:55 06:55 WBC 5.09 (4.8-10.8) K/ul RBC 4.21 L (4.70-6.10) M/uL Hgb 13.6 L (14.0-18.0) g/dl Hct 41.1 L (42.0-52.0) % MCV 97.6 (80.0-100.0) fL MCH 32.3 (25.0-34.0) pg MCHC 33.1 (32.0-36.0) g/dL RDW Std Deviation 63.7 H (36.4-46.3) fL RDW Coeff of Herrera 18.2 H (11.5-14.5) % Plt Count 192 (130-400) K/uL MPV 11.8 (9.4-12.4) fL Immature Gran % (Auto) 0.4 % Neut % (Auto) 73.4 % Lymph % (Auto) 16.3 % [place] % (Auto) 7.1 % Eos % (Auto) 1.2 % Baso % (Auto) 1.6 % Neut # (Auto) 3.74 (1.40-6.50) K/uL Lymph # (Auto) 0.83 L (1.2-3.4) K/uL [place] # (Auto) 0.36 (0.11-0.59) K/uL Eos # (Auto) 0.06 (0-0.50) K/uL Baso # (Auto) 0.08 (0-0.2) K/uL Immature Gran # (Auto) 0.02 (0.01-0.20) K/uL Absolute Nucleated RBC 0.05 (0-0.12) K/uL Nucleated RBC % (auto) 1.0 % PT 14.9 H (9.0-12.0) Seconds INR 1.4 H (0.9-1.1) APTT 128.7 H* (21.0-31.0) Seconds PTT Ratio 4.6 Sodium 141 (136-145) mmol/L Potassium 4.3 (3.5-5.1) mmol/L Chloride 105 (98-107) mmol/L Carbon Dioxide 29 (21-32) mmol/L Anion Gap 7 (3-11) BUN 34 H (6-23) mg/dl Creatinine 1.54 H (0.6-1.4) mg/dl Est Cr Clr Drug Dosing 42.1 Est GFR ( Amer) 50.8 ml/min Est GFR (Non-Af Amer) 43.8 ml/min BUN/Creatinine Ratio 22.1 H (10-20) Glucose 105 H (70-99(Fasting)) mg/dl Calcium 9.8 (8.6-10.3) mg/dl Magnesium (1.7-2.4) mg/dl Total Bilirubin 3.8 H (0.2-1.0) mg/dl AST 62 H (13-39) U/L ALT 81 H (7-52) U/L Alkaline Phosphatase 136 H (34-104) U/L Total Protein 6.9 (6.0-8.3) gm/dl Albumin 3.8 (3.4-5.0) gm/dl Globulin 3.1 (2.5-4.0) gm/dl Albumin/Globulin Ratio 1.2 (0.9-2) Lipase (11-82) U/L TSH (0.300-4.500) uIu/ml Free T4 (0.61-1.60) ng/dl Urine Color Urine Appearance (Clear) Urine pH (4.5-7.5) Ur Specific [place] (1.000-1.030) Urine Protein (Negative) Urine Glucose (UA) (Negative) Urine Ketones (Negative) Urine Blood (Negative) Urine Nitrite (Negative) Urine Bilirubin (Negative) Urine Urobilinogen (Negative) Ur Leukocyte Esterase (Negative) SARS-CoV-2, RNA, NAAT (NEGATIVE) 12/09/22 12/08/22 12/08/22 Range/Units 06:55 Unknown 16:00 WBC (4.8-10.8) K/ul RBC (4.70-6.10) M/uL Hgb (14.0-18.0) g/dl Hct (42.0-52.0) % MCV (80.0-100.0) fL MCH (25.0-34.0) pg MCHC (32.0-36.0) g/dL RDW Std Deviation (36.4-46.3) fL RDW Coeff of Herrera (11.5-14.5) % Plt Count (130-400) K/uL MPV (9.4-12.4) fL Immature Gran % (Auto) % Neut % (Auto) % Lymph % (Auto) % [place] % (Auto) % Eos % (Auto) % Baso % (Auto) % Neut # (Auto) (1.40-6.50) K/uL Lymph # (Auto) (1.2-3.4) K/uL [place] # (Auto) (0.11-0.59) K/uL Eos # (Auto) (0-0.50) K/uL Baso # (Auto) (0-0.2) K/uL Immature Gran # (Auto) (0.01-0.20) K/uL Absolute Nucleated RBC (0-0.12) K/uL Nucleated RBC % (auto) % PT (9.0-12.0) Seconds INR (0.9-1.1) APTT (21.0-31.0) Seconds PTT Ratio Sodium (136-145) mmol/L Potassium (3.5-5.1) mmol/L Chloride (98-107) mmol/L Carbon Dioxide (21-32) mmol/L Anion Gap (3-11) BUN (6-23) mg/dl Creatinine (0.6-1.4) mg/dl Est Cr Clr Drug Dosing Est GFR ( Amer) ml/min Est GFR (Non-Af Amer) ml/min BUN/Creatinine Ratio (10-20) Glucose (70-99(Fasting)) mg/dl Calcium (8.6-10.3) mg/dl Magnesium (1.7-2.4) mg/dl Total Bilirubin (0.2-1.0) mg/dl AST (13-39) U/L ALT (7-52) U/L Alkaline Phosphatase (34-104) U/L Total Protein (6.0-8.3) gm/dl Albumin (3.4-5.0) gm/dl Globulin (2.5-4.0) gm/dl Albumin/Globulin Ratio (0.9-2) Lipase (11-82) U/L TSH 7.867 H (0.300-4.500) uIu/ml Free T4 1.38 (0.61-1.60) ng/dl Urine Color Yellow Urine Appearance Clear (Clear) Urine pH 5.0 (4.5-7.5) Ur Specific [place] 1.022 (1.000-1.030) Urine Protein Negative (Negative) Urine Glucose (UA) Negative (Negative) Urine Ketones Negative (Negative) Urine Blood Negative (Negative) Urine Nitrite Negative (Negative) Urine Bilirubin Negative (Negative) Urine Urobilinogen Negative (Negative) Ur Leukocyte Esterase Negative (Negative) SARS-CoV-2, RNA, NAAT NEGATIVE (NEGATIVE) 12/08/22 12/08/22 12/08/22 Range/Units 16:00 16:00 16:00 WBC 5.82 (4.8-10.8) K/ul RBC 4.15 L (4.70-6.10) M/uL Hgb 13.3 L (14.0-18.0) g/dl Hct 40.3 L (42.0-52.0) % MCV 97.1 (80.0-100.0) fL MCH 32.0 (25.0-34.0) pg MCHC 33.0 (32.0-36.0) g/dL RDW Std Deviation 62.6 H (36.4-46.3) fL RDW Coeff of Herrera 18.1 H (11.5-14.5) % Plt Count 195 (130-400) K/uL MPV 11.5 (9.4-12.4) fL Immature Gran % (Auto) 0.2 % Neut % (Auto) 77.1 % Lymph % (Auto) 12.4 % [place] % (Auto) 7.9 % Eos % (Auto) 1.0 % Baso % (Auto) 1.4 % Neut # (Auto) 4.49 (1.40-6.50) K/uL Lymph # (Auto) 0.72 L (1.2-3.4) K/uL [place] # (Auto) 0.46 (0.11-0.59) K/uL Eos # (Auto) 0.06 (0-0.50) K/uL Baso # (Auto) 0.08 (0-0.2) K/uL Immature Gran # (Auto) 0.01 (0.01-0.20) K/uL Absolute Nucleated RBC 0.03 (0-0.12) K/uL Nucleated RBC % (auto) 0.5 % PT 15.6 H (9.0-12.0) Seconds INR 1.5 H (0.9-1.1) APTT 31.1 H (21.0-31.0) Seconds PTT Ratio 1.1 Sodium 140 (136-145) mmol/L Potassium 4.1 (3.5-5.1) mmol/L Chloride 104 (98-107) mmol/L Carbon Dioxide 27 (21-32) mmol/L Anion Gap 9 (3-11) BUN 37 H (6-23) mg/dl Creatinine 1.66 H (0.6-1.4) mg/dl Est Cr Clr Drug Dosing Not Reportable Est GFR ( Amer) 46.4 ml/min Est GFR (Non-Af Amer) 40.0 ml/min BUN/Creatinine Ratio 22.3 H (10-20) Glucose 81 (70-99(Fasting)) mg/dl Calcium 9.8 (8.6-10.3) mg/dl Magnesium 2.0 (1.7-2.4) mg/dl Total Bilirubin 3.6 H (0.2-1.0) mg/dl AST 67 H (13-39) U/L ALT 91 H (7-52) U/L Alkaline Phosphatase 143 H (34-104) U/L Total Protein 7.2 (6.0-8.3) gm/dl Albumin 3.9 (3.4-5.0) gm/dl Globulin 3.3 (2.5-4.0) gm/dl Albumin/Globulin Ratio 1.2 (0.9-2) Lipase 64 (11-82) U/L TSH (0.300-4.500) uIu/ml Free T4 (0.61-1.60) ng/dl Urine Color Urine Appearance (Clear) Urine pH (4.5-7.5) Ur Specific [place] (1.000-1.030) Urine Protein (Negative) Urine Glucose (UA) (Negative) Urine Ketones (Negative) Urine Blood (Negative) Urine Nitrite (Negative) Urine Bilirubin (Negative) Urine Urobilinogen (Negative) Ur Leukocyte Esterase (Negative) SARS-CoV-2, RNA, NAAT (NEGATIVE)
--- NOTE | 2022-12-09 12:48 | Cardiology Consultation ---
Date of Consultation December 09, 2022 Assessment & Plan (1) Atrial fibrillation with rapid ventricular response: (2) PAF (paroxysmal atrial fibrillation): (3) S/p TAVR (transcatheter aortic valve replacement), bioprosthetic: (4) CAD (coronary artery disease): (5) MVP (mitral valve prolapse): (6) Mitral regurgitation: (7) Pulmonary hypertension: Plan Mr. 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 Patient underwent a TAVR on 11/19/22 due to severe and symptomatic aortic stenosis and he was also recently hospitalized for shortness of breath. He complained of ongoing shortness of breath - although this is no different on admission compared to the proceeding weeks. He was noted to be in A-Fib with RVR on admission but admittedly missed his Metoprolol dose yesterday morning before coming into the ER and he was not on Eliquis routinely and was supposed to take Eliquis as needed for episodes of atrial fibrillation. Patient has not experienced any angina pectoris or anginal equivalent symptoms, recent exacerbations of heart failure, nor does he have any significant palpitations with his atrial fibrillation -- however his dyspnea may be related in some degree to his atrial fibrillation. Please note that the patient's exertional dyspnea never really improved or changed following his TAVR, but he was very deconditioned by the time he went for his TAVR. Patient has not had any symptoms suggestive of stroke or mini stroke. Patient is now back in a normal sinus rhythm with frequent atrial ectopic beats and he is comfortably lying flat on his hospital bed. Recommend the followin. Continue jaundice work-up. 2. Continue Aspirin 81 mg daily. 3. Continue Atorvastatin 80 mg daily. 4. Continue Lasix 40 mg daily 5. Continue Lopressor 25 mg b.i.d., can convert to Toprol XL 50 mg daily at the time of discharge. 6. Continue Potassium Chloride 20 mEq daily. 7. Continue Heparin drip for the time being, to convert to Eliquis 5 mg b.i.d. at the time of discharge. Thank you for asking us see this patient consultation. If we can be of any further assistance you, please contact [facility] [place] [facility]. History of Present Illness Reason for Consultation: -- A-Fib with RVR. -- s/p TAVR. Requesting Physician: Kevin Harkins DO Attending Physician: Toñito Paige MD History of Present Illness Mr. 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 Patient underwent a TAVR on 11/19/22 due to severe and symptomatic aortic stenosis and he was also recently hospitalized for shortness of breath. He complained of ongoing shortness of breath - although this is no different on admission compared to the proceeding weeks. He was noted to be in A-Fib with RVR on admission but admittedly missed his Metoprolol dose yesterday morning before coming into the ER and he was not on Eliquis routinely and was supposed to take Eliquis as needed for episodes of atrial fibrillation. Patient denies any exertional chest pain, heaviness, tightness, pressure, or discomfort. He denies any exertional neck, jaw, back, or arm pain. He denies any orthopnea or PND. He denies any palpitations, syncope, or near syncope. Please note that the patient's exertional dyspnea never really improved or changed following his TAVR, but he was very deconditioned by the time he went for his TAVR. Patient has not had any symptoms suggestive of stroke or mini stroke. The main concern from his PCP's standpoint was worsening LFTs and jaundice. The patient describes his stomach feeling "sour" after eating in his epigastric area. He continues getting weaker as eating and drinking less since this brings on this "sour feeling." He denies any abdominal pain. No change in bowel habits, melena, hematochezia, nausea, or vomiting. He also describes dizziness when standingupright but he has not had any further syncopal episodes following his TAVR. Thus far his workup shows an anemia with a hemoglobin of 13.6 g/dL, hematocrit 41.1%, normal serum sodium of 141 mmol/L, potassium 4.3 mmol/L, BUN elevated 34 mg/dL ,with creatinine of 1.54 mg/dL glucose is 105 mg/dL. His total bilirubin is 3.8 mg/dL, AST is elevated at 62 U/L, ALT is elevated at 81 U/L, and alkaline phosphatase is elevated 136 U/L. TSH is elevated at 7.867 uIu/mL. EKGs on 12/08/2022 showed atrial fibrillation with be rates in the 90s to low 100s. EKG this morning shows sinus rhythm with sinus arrhythmia and PACs/atrial triplets. 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 CARDIAC CATHETERIZATION 08/31/22: Coronary Angiography: 1.LMCA: Large caliber vessel. No significant CAD. 2.LAD:Large caliber vessel that wraps around the apex. Ostial/proximal LAD 30% to 40%. Otherwise, luminal irregularities throughout the proximal and mid LAD with focal mid LAD 40% to 50% stenosis. Large high D1 with proximal 70% to 80%. Medium caliber D2. CLINTON-3 flow throughout the LAD system. 3 LCx: Very large caliber and dominant vessel. Proximal LCx 70% to 80%. Mid LCx 50%. OM1, PL branches and PDA without significant CAD. CLINTON-3 flow throughout the LCx system. 4. RCA: Small and nondominant. Luminal irregularities throughout with mid RCA 40%. Right Heart Catheterization: 1. Initially, unable to pass the right heart catheter beyond the proximal upper extremity. Venography was performed and demonstrated tortuosity. Whisper wire was able to be advanced. Over the wire, 6 Yoruba right heart catheterization was able to be advanced. 2. Pulmonary capillary wedge pressure: V wave 66 with a mean of 48 mmHg. 3. PA pressure: 87/39 with a mean of 55 mmHg. 4. RV pressure: 84/12 with EDP 21 mmHg. 5. Right atrial pressure: A-wave 16; V wave 19; mean 14 mmHg. 6. Cardiac output via thermodilution was 3.87 L/min, with a cardiac index of 1.92 L/min/m. 7. PVR 1.8 Wood units. IMPRESSION: 1. Severe CAD involving proximal dominant LCx and proximal large caliber D1. 2. Otherwise nonobstructive CAD. 3. Severe pulmonary hypertension (postcapillary) due to left heart failure. 4. Severely elevated pulmonary capillary wedge pressure. 5. Previously documented severe aortic stenosis. ECHOCARDIOGRAM 07/03/22: -- Normal LV systolic function. -- LVEF 60% to 65% without regional wall motion abnormalities. -- Mild concentric LVH. -- Severe aortic valve stenosis with trivial AI -- Ao V2 max 394.7 cm/sec, Ao PG 62.3 mmHg, Ao MG 24.7 mmHg. -- Prolapse of the posterior mitral leaflet. -- Aortic root measures 4.0 cm. ECHOCARDIOGRAM 07/31/21: -- Normal LV systolic function. -- LVEF 60% to 65% without regional wall motion abnormalities. -- Mild concentric LVH. -- Moderate aortic valve stenosis. -- Prolapse of the posterior mitral leaflet. -- Mild aortic root dilation at 4.3 cm. -- Mildly dilated ascending aorta at 4.0 cm in diameter. -- No significant change compared to 06/13/2020 study. Allergies Allergy/AdvReac Type Severity Reaction Status Date / Time baclofen Allergy Unknown PT & PT'S Verified 12/08/22 20:11 SPOUSE DENIES ANY ALLERGIES OR SENSATIVITY TO MED cyclobenzaprine Allergy Unknown PT & PT'S Verified 12/08/22 20:11 [From Flexeril] SPOUSE DENIES ANY ALLERGIES OR SENSATIVITY TO MED doxazosin Allergy Unknown PT & PT'S Verified 12/08/22 20:11 SPOUSE DENIES ANY ALLERGIES OR SENSATIVITY TO MED doxycycline Allergy Unknown PT & PT'S Verified 12/08/22 20:11 SPOUSE DENIES ANY ALLERGIES OR SENSATIVITY TO MED duloxetine Allergy Unknown PT & PT'S Verified 12/08/22 20:11 SPOUSE DENIES ANY ALLERGIES OR SENSATIVITY TO MED gabapentin Allergy Unknown PT & PT'S Verified 12/08/22 20:11 SPOUSE DENIES ANY ALLERGIES OR SENSATIVITY TO MED lisinopril Allergy Unknown PT & PT'S Verified 12/08/22 20:11 SPOUSE DENIES ANY ALLERGIES OR SENSATIVITY TO MED naproxen Allergy Unknown PT & PT'S Verified 12/08/22 20:11 SPOUSE DENIES ANY ALLERGIES OR SENSATIVITY TO MED nortriptyline [From Pamelor] Allergy Unknown PT & PT'S Verified 12/08/22 20:11 SPOUSE DENIES ANY ALLERGIES OR SENSATIVITY TO MED oxcarbazepine Allergy Unknown PT & PT'S Verified 12/08/22 20:11 SPOUSE DENIES ANY ALLERGIES OR SENSATIVITY TO MED Penicillins Allergy Unknown PT & PT'S Verified 12/08/22 20:11 SPOUSE DENIES ANY ALLERGIES OR SENSATIVITY TO MED Home Medications Medication Instructions Recorded Confirmed Type acetaminophen 500 mg tablet 1,000 mg PO TID PRN fever or pain 11/18/18 12/08/22 Rx #90 tabs aspirin 81 mg tablet,delayed 81 mg PO DAILY #90 tabs 06/09/22 12/08/22 Rx release metoprolol succinate 25 mg 12.5 mg PO QAM #30 tabs 08/22/22 12/08/22 Rx tablet,extended release 24 hr Wheelchair (Manual) #1 ea 09/17/22 12/08/22 Rx Oxygen Home #1 ea 10/12/22 12/08/22 Rx atorvastatin 80 mg tablet 80 mg PO HS #90 tabs 11/05/22 12/08/22 Rx bupropion HCl 150 mg 24 hr tablet, 150 mg PO QAM #90 tabs 11/05/22 12/08/22 Rx extended release (Wellbutrin XL) fluticasone propionate 50 2 spray intranasal DAILY #48 grams 11/05/22 12/08/22 Rx mcg/actuation nasal spray,suspension (Flonase Allergy Relief) pantoprazole 40 mg tablet,delayed 40 mg PO DAILY #90 tabs 11/05/22 12/08/22 Rx release paroxetine HCl 40 mg tablet 40 mg PO QAM #90 tabs 11/05/22 12/08/22 Rx potassium chloride 20 mEq 20 meq PO QAM #90 tabs 11/05/22 12/08/22 Rx tablet,extended release tamsulosin 0.4 mg capsule 0.4 mg PO HS #90 caps 11/05/22 12/08/22 Rx furosemide 40 mg tablet (Lasix) 40 mg PO DAILY 11/09/22 12/08/22 History loratadine 10 mg tablet 10 mg PO DAILY 11/09/22 12/08/22 History Patient History Medical History Acute heart failure with preserved ejection fraction Aneurysm, thoracic aortic pt unaware of size, follows with Dr. Paige Aortic atherosclerosis Aortic stenosis, severe BPH with obstruction/lower urinary tract symptoms CAD (coronary artery disease) Cervical disc disease Chronic sinusitis Cognitive disorder Coronary artery calcification Depression with anxiety Dyslipidemia Glaucoma Hearing loss Hepatic steatosis History of central retinal vein occlusion Hypertension Iron deficiency Lower GI bleed no current issues Lumbar spinal stenosis Mitral regurgitation MVP (mitral valve prolapse) Osteoarthritis PAC (premature atrial contraction) PAF (paroxysmal atrial fibrillation) Sleep apnea Trigeminal neuralgia received radiation for this, having numbess/tingling to right side of face since this Vitamin D deficiency Surgical History H/O cataract extraction (2013) H/O colonoscopy History of cochlear implant (01/12/12) BILATERAL History of pilonidal cyst removed History of umbilical hernia repair S/P foot surgery, right (12/2010) removal of heel spur S/P laser trabeculoplasty of eye (10/2014) b/l S/P nasal endoscopy with nasal polypectomy (2011) S/P rotator cuff repair b/l shoulders S/p TAVR (transcatheter aortic valve replacement), 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) Family History Mother No pertinent family history Other Hypertension Denies family history of Ovarian cancer Prostate cancer Diabetes Myocardial infarction Breast cancer Colorectal cancer Cancer Social History Smoking Status: Never smoker Second Hand Exposure: No; Do You Dip or Chew Tobacco: No; Hx Alcohol Use: No Hx Substance Use: No Preferred Language: Libyan Communication Ability: Effective Visual Impairment: No Limitations Hearing Ability: Cochlear Implant Utility Engineer Required: No Beliefs That Will Affect Care: None marital status: Current Living Situation: Spouse Current Living Situation Comment: with and daughter current occupational status: retired How many Children do You have: 1 Feels Safe at Home: Yes Childhood Exposure to Second-Hand Smoke: Yes Diet: regular Diet Comment: regular caffeine: Yes (Soda 6 per day. Coffee 1 cup per day.) during the past year weight has: remained stable Dental Care, Regularly: No Physical Activity Frequency: Daily Seatbelt Use: sometimes Sunscreen Use: No Assistive Devices: Cane, CPAP, Oxygen - at Night and Walker Review of Systems Review of Systems: -- 10 point ROS completed and is negative with the exception of what is mentioned in the HPI. Physical Exam Physical Exam: Blood pressure is 109/73 left arm seated. Pulse 60 and slightly irregular. GENERAL: Patient in no acute distress. Bilateral hearing aids/cochlear implants present. HEENT: Resolving periorbital ecchymosis. EOM's intact. No perioral cyanosis. NECK: No JVD. JVP is not elevated. CHEST/LUNGS: Mildly diminished breath sounds throughout, otherwise clear. No wheezes, rales, or crackles. CVS: S1 and S2 are regular with with a grade 1/6 basal systolic murmur heard at the right 2nd intercostal space, and a grade 2-3/6 apical systolic murmur which radiates to the axilla. No obvious diastolic murmurs. No gallops or rubs. PMI is nonpalpable. No lifts, heaves, or thrills. No abdominal aortic or renal bruits. ABDOMINAL EXAM: Bowel sounds are present. No masses, organomegaly, or tenderness. EXTREMITIES: No clubbing or cyanosis. Trace bipedal edema. Intact radial pulses bilaterally. NEUROLOGIC EXAM: Patient is awake, alert, and oriented. Pleasant and cooperative. Answers questions appropriately. Speech is clear. Gait pattern was not assessed. Results & Data Vital Signs (Past 12 Hours) Vital Signs Temp Pulse Pulse Resp BP Pulse Ox O2 Del Method 12/09/22 09:06 Nasal Cannula 12/09/22 08:01 36.6 C 60 19 109/73 96 Nasal Cannula 12/09/22 02:31 36.6 C 145 H 20 102/65 91 Nasal Cannula 12/09/22 00:55 36.5 C 124 H 20 101/70 95 Room Air O2 Flow Rate 12/09/22 09:06 4 12/09/22 08:01 4 12/09/22 02:31 4 12/09/22 00:55 Laboratory Results Laboratory Results - last 24 hr 12/08/22 12/08/22 12/08/22 16:00 16:00 16:00 WBC 5.82 RBC 4.15 L Hgb 13.3 L Hct 40.3 L MCV 97.1 MCH 32.0 MCHC 33.0 RDW Std Deviation 62.6 H RDW Coeff of Herrera 18.1 H Plt Count 195 MPV 11.5 Immature Gran % (Auto) 0.2 Neut % (Auto) 77.1 Lymph % (Auto) 12.4 Traill % (Auto) 7.9 Eos % (Auto) 1.0 Baso % (Auto) 1.4 Neut # (Auto) 4.49 Lymph # (Auto) 0.72 L Traill # (Auto) 0.46 Eos # (Auto) 0.06 Baso # (Auto) 0.08 Immature Gran # (Auto) 0.01 Absolute Nucleated RBC 0.03 Nucleated RBC % (auto) 0.5 PT 15.6 H INR 1.5 H APTT 31.1 H PTT Ratio 1.1 Sodium 140 Potassium 4.1 Chloride 104 Carbon Dioxide 27 Anion Gap 9 BUN 37 H Creatinine 1.66 H Est Cr Clr Drug Dosing Not Reportable Est GFR ( Amer) 46.4 Est GFR (Non-Af Amer) 40.0 BUN/Creatinine Ratio 22.3 H Glucose 81 Calcium 9.8 Magnesium 2.0 Iron Ferritin Total Bilirubin 3.6 H AST 67 H ALT 91 H Alkaline Phosphatase 143 H Total Protein 7.2 Albumin 3.9 Globulin 3.3 Albumin/Globulin Ratio 1.2 Ceruloplasmin Lipase 64 TSH Free T4 Urine Color Urine Appearance Urine pH Ur Specific Star Urine Protein Urine Glucose (UA) Urine Ketones Urine Blood Urine Nitrite Urine Bilirubin Urine Urobilinogen Ur Leukocyte Esterase ROLANDO Screen Anti-Mitochondrial Ab Anti-Smooth Muscle Ab Tiss Transglutamin IgA CMV IgM Ab CMV IgG Ab/TORCH EBV Capsid Ag IgG Ab EBV Capsid Ag IgM Ab Hepatitis A IgM Ab Hep Bs Antigen Hep Bs Ag Confirmation Hep B Core IgM Ab Hepatitis C Ab (EIA) SARS-CoV-2, RNA, NAAT 12/08/22 12/08/22 12/09/22 16:00 Unknown 06:55 WBC RBC Hgb Hct MCV MCH MCHC RDW Std Deviation RDW Coeff of Herrera Plt Count MPV Immature Gran % (Auto) Neut % (Auto) Lymph % (Auto) Traill % (Auto) Eos % (Auto) Baso % (Auto) Neut # (Auto) Lymph # (Auto) Traill # (Auto) Eos # (Auto) Baso # (Auto) Immature Gran # (Auto) Absolute Nucleated RBC Nucleated RBC % (auto) PT INR APTT PTT Ratio Sodium Potassium Chloride Carbon Dioxide Anion Gap BUN Creatinine Est Cr Clr Drug Dosing Est GFR ( Amer) Est GFR (Non-Af Amer) BUN/Creatinine Ratio Glucose Calcium Magnesium Iron Ferritin Total Bilirubin AST ALT Alkaline Phosphatase Total Protein Albumin Globulin Albumin/Globulin Ratio Ceruloplasmin Lipase TSH 7.867 H Free T4 1.38 Urine Color Yellow Urine Appearance Clear Urine pH 5.0 Ur Specific Star 1.022 Urine Protein Negative Urine Glucose (UA) Negative Urine Ketones Negative Urine Blood Negative Urine Nitrite Negative Urine Bilirubin Negative Urine Urobilinogen Negative Ur Leukocyte Esterase Negative ROLANDO Screen Anti-Mitochondrial Ab Anti-Smooth Muscle Ab Tiss Transglutamin IgA CMV IgM Ab CMV IgG Ab/TORCH EBV Capsid Ag IgG Ab EBV Capsid Ag IgM Ab Hepatitis A IgM Ab Hep Bs Antigen Hep Bs Ag Confirmation Hep B Core IgM Ab Hepatitis C Ab (EIA) SARS-CoV-2, RNA, NAAT NEGATIVE 12/09/22 12/09/22 12/09/22 06:55 06:55 06:55 WBC 5.09 RBC 4.21 L Hgb 13.6 L Hct 41.1 L MCV 97.6 MCH 32.3 MCHC 33.1 RDW Std Deviation 63.7 H RDW Coeff of Herrera 18.2 H Plt Count 192 MPV 11.8 Immature Gran % (Auto) 0.4 Neut % (Auto) 73.4 Lymph % (Auto) 16.3 Traill % (Auto) 7.1 Eos % (Auto) 1.2 Baso % (Auto) 1.6 Neut # (Auto) 3.74 Lymph # (Auto) 0.83 L Traill # (Auto) 0.36 Eos # (Auto) 0.06 Baso # (Auto) 0.08 Immature Gran # (Auto) 0.02 Absolute Nucleated RBC 0.05 Nucleated RBC % (auto) 1.0 PT 14.9 H INR 1.4 H APTT 128.7 H* PTT Ratio 4.6 Sodium 141 Potassium 4.3 Chloride 105 Carbon Dioxide 29 Anion Gap 7 BUN 34 H Creatinine 1.54 H Est Cr Clr Drug Dosing 42.1 Est GFR ( Amer) 50.8 Est GFR (Non-Af Amer) 43.8 BUN/Creatinine Ratio 22.1 H Glucose 105 H Calcium 9.8 Magnesium Iron Ferritin Total Bilirubin 3.8 H AST 62 H ALT 81 H Alkaline Phosphatase 136 H Total Protein 6.9 Albumin 3.8 Globulin 3.1 Albumin/Globulin Ratio 1.2 Ceruloplasmin Lipase TSH Free T4 Urine Color Urine Appearance Urine pH Ur Specific Star Urine Protein Urine Glucose (UA) Urine Ketones Urine Blood Urine Nitrite Urine Bilirubin Urine Urobilinogen Ur Leukocyte Esterase ROLANDO Screen Anti-Mitochondrial Ab Anti-Smooth Muscle Ab Tiss Transglutamin IgA CMV IgM Ab CMV IgG Ab/TORCH EBV Capsid Ag IgG Ab EBV Capsid Ag IgM Ab Hepatitis A IgM Ab Hep Bs Antigen Hep Bs Ag Confirmation Hep B Core IgM Ab Hepatitis C Ab (EIA) SARS-CoV-2, RNA, NAAT 12/09/22 12/09/22 12:22 12:22 WBC RBC Hgb Hct MCV MCH MCHC RDW Std Deviation RDW Coeff of Herrera Plt Count MPV Immature Gran % (Auto) Neut % (Auto) Lymph % (Auto) Traill % (Auto) Eos % (Auto) Baso % (Auto) Neut # (Auto) Lymph # (Auto) Traill # (Auto) Eos # (Auto) Baso # (Auto) Immature Gran # (Auto) Absolute Nucleated RBC Nucleated RBC % (auto) PT INR APTT PTT Ratio Sodium Potassium Chloride Carbon Dioxide Anion Gap BUN Creatinine Est Cr Clr Drug Dosing Est GFR ( Amer) Est GFR (Non-Af Amer) BUN/Creatinine Ratio Glucose Calcium Magnesium Iron Pending Ferritin Pending Total Bilirubin AST ALT Alkaline Phosphatase Total Protein Albumin Globulin Albumin/Globulin Ratio Ceruloplasmin Pending Lipase TSH Free T4 Urine Color Urine Appearance Urine pH Ur Specific Star Urine Protein Urine Glucose (UA) Urine Ketones Urine Blood Urine Nitrite Urine Bilirubin Urine Urobilinogen Ur Leukocyte Esterase ROLANDO Screen Pending Anti-Mitochondrial Ab Pending Anti-Smooth Muscle Ab Pending Tiss Transglutamin IgA Pending CMV IgM Ab Pending CMV IgG Ab/TORCH Pending EBV Capsid Ag IgG Ab Pending EBV Capsid Ag IgM Ab Pending Hepatitis A IgM Ab Pending Hep Bs Antigen Pending Hep Bs Ag Confirmation Pending Hep B Core IgM Ab Pending Hepatitis C Ab (EIA) Pending SARS-CoV-2, RNA, NAAT Diagnostic Findings CXR 12/08/22: There is mild elevation of the right hemidiaphragm. Small right pleural effusion has decreased in size since prior exam. There is no evidence for pulmonary edema. Moderate cardiomegaly is again noted. There is a prosthetic aortic valve. No pneumothorax. There is no consolidation to suggest pneumonia. IMPRESSION: 1. Moderate cardiomegaly. No evidence for pulmonary edema. 2. Small right pleural effusion, decreased in size since prior exam. CTA CHEST 12/08/22: FINDINGS: Pulmonary arteries: Unremarkable. No pulmonary embolus identified. Aorta: Atherosclerotic changes of the aorta. No aortic aneurysm. Hepatic veins: Reflux of contrast into the hepatic veins is suggestive of elevated right heart pressures. Lungs: Small calcified granulomas in the right lower lobe. Dependent atelectasis on the right. Mild scattered atelectasis bilaterally. No mass. Pleural space: Moderate right-sided pleural effusion. No pneumothorax. Heart: Mild cardiomegaly. Coronary artery calcifications. TAVR. Mediastinum: Nonspecific mildly prominent mediastinal lymph nodes. Bones/joints: Degenerative changes of the spine. No acute fracture.No dislocation. Soft tissues: Unremarkable. Lymph nodes: Unremarkable. No enlarged lymph nodes. IMPRESSION: 1. No pulmonary embolus identified. 2. Atherosclerotic changes of the aorta. No aortic aneurysm. 3. Moderate right-sided pleural effusion. 4. Dependent atelectasis on the right. Mild scattered atelectasis bilaterally. RUQ ULTRASOUND 12/09/22: 1. Hepatic steatosis. 2. Distended gallbladder. No shadowing gallstones are identified and there is no clear sonographic evidence of acute cholecystitis. Clinical and laboratory correlation will be required. If there is clinical concern for acalculus cholecystitis a hepatobiliary scan should be considered. 3. Trace perihepatic ascites. 4. Right pleural effusion. RLE VENOUS DUPLEX DOPPLER 12/09/22: IMPRESSION: 1. No evidence of acute deep venous thrombus within the right lower extremity. 2. Minimal wall thickening of the mid right femoral vein. This favors minimal chronic thrombus. Medications Administered Medications acetaminophen 500 mg tablet 1,000 mg PO TID PRN fever or pain #90 tabs 11/18/18 [Rx Confirmed 12/08/22] aspirin 81 mg tablet,delayed release 81 mg PO DAILY #90 tabs 06/09/22 [Rx Confirmed 12/08/22] metoprolol succinate 25 mg tablet,extended release 24 hr 12.5 mg PO QAM #30 tabs 08/22/22 [Rx Confirmed 12/08/22] Wheelchair (Manual) #1 ea 09/17/22 [Rx Confirmed 12/08/22] Oxygen Home #1 ea 10/12/22 [Rx Confirmed 12/08/22] atorvastatin 80 mg tablet 80 mg PO HS #90 tabs 11/05/22 [Rx Confirmed 12/08/22] bupropion HCl 150 mg 24 hr tablet, extended release (Wellbutrin XL) 150 mg PO QAM #90 tabs 11/05/22 [Rx Confirmed 12/08/22] fluticasone propionate 50 mcg/actuation nasal spray,suspension (Flonase Allergy Relief) 2 spray intranasal DAILY #48 grams 11/05/22 [Rx Confirmed 12/08/22] pantoprazole 40 mg tablet,delayed release 40 mg PO DAILY #90 tabs 11/05/22 [Rx Confirmed 12/08/22] paroxetine HCl 40 mg tablet 40 mg PO QAM #90 tabs 11/05/22 [Rx Confirmed 12/08/22] potassium chloride 20 mEq tablet,extended release 20 meq PO QAM #90 tabs 11/05/22 [Rx Confirmed 12/08/22] tamsulosin 0.4 mg capsule 0.4 mg PO HS #90 caps 11/05/22 [Rx Confirmed 12/08/22] furosemide 40 mg tablet (Lasix) 40 mg PO DAILY 11/09/22 [History Confirmed ] loratadine 10 mg tablet 10 mg PO DAILY 11/09/22 [History Confirmed 12/08/22] Home Medications Aspirin (Aspirin 81 Mg Ectab) 81 mg PO DAILY [facility] Stop: 01/08/23 08:59 Last Admin: 12/09/22 07:42 Dose: 81 mg Atorvastatin Calcium (Atorvastatin 40 Mg Tab) 80 mg PO HS [facility] Stop: 01/07/23 22:16 Last Admin: 12/08/22 23:00 Dose: 80 mg Bupropion HCl (Bupropion Xl 150 Mg Tabcr) 150 mg PO QAM [facility] Stop: 01/08/23 08:59 Last Admin: 12/09/22 07:43 Dose: 150 mg Furosemide (Furosemide 40 Mg Tab) 40 mg PO DAILY [facility] Stop: 01/08/23 08:59 Heparin Sodium/Dextrose (Heparin Sodium/Dextrose) 25,000 units in 500 mls @ 22 mls/hr IV .[id number] [facility]; Protocol Stop: 01/07/23 23:44 Last Titration: 12/09/22 10:45 Dose: 1,100 units/hr, 22 mls/hr Loratadine (Loratadine 10 Mg Tab) 10 mg PO DAILY [facility] Stop: 01/08/23 08:59 Last Admin: 12/09/22 07:42 Dose: 10 mg Metoprolol Tartrate (Metoprolol Tartrate 25 Mg Tab) 25 mg PO BID [facility] Stop: 01/07/23 23:39 Last Admin: 12/09/22 07:43 Dose: 25 mg Pantoprazole Sodium (Pantoprazole 40 Mg Tab) 40 mg PO DAILY [facility] Stop: 01/08/23 08:59 Last Admin: 12/09/22 07:42 Dose: 40 mg Paroxetine HCl (Paroxetine Hcl 20 Mg Tab) 40 mg PO QAM [facility] Stop: 01/08/23 08:59 Last Admin: 12/09/22 07:42 Dose: 40 mg Potassium Chloride (Potassium Chloride Crtab 20 Meq Tabcr) 20 meq PO QAM [facility] Stop: 01/08/23 08:59 Last Admin: 12/09/22 07:42 Dose: 20 meq Tamsulosin HCl (Tamsulosin Hcl 0.4 Mg Cap) 0.4 mg PO HS [facility] Stop: 01/07/23 22:16 Last Admin: 12/08/22 23:00 Dose: 0.4 mg PG Care Time/CCT Total # of Minutes Spent Total Time Spent with Patient: Total time spent is greater than 50% in coordination of care (as documented) at patient's floor/unit and/or counseling patient:46 Coding [place] [address] IN/OBS CONSULT LVL 4,60M Patient Type Established History Detailed Exam Detailed Medical Decision Making Moderate Complexity Diagnoses Atrial fibrillation with rapid ventricular response I48.91 PAF (paroxysmal atrial fibrillation) I48.0 S/p TAVR (transcatheter aortic valve replacement), bioprosthetic Z95.3 CAD (coronary artery disease) I25.10 MVP (mitral valve prolapse) I34.1 Mitral regurgitation I34.0 Pulmonary hypertension I27.20 Time Spent (min) 58
[2022-12-09 13:33] LABS: Ferritin 365.4 ng/ml (8-388)
--- NOTE | 2022-12-09 14:44 | Electrocardiogram Report ---
Test Reason : Blood Pressure : / mmHG Vent. Rate : 097 BPM Atrial Rate : 000 BPM P-R Int : 000 ms QRS Dur : 104 ms QT Int : 342 ms P-R-T Axes : 000 064 -59 degrees QTc Int : 434 ms Poor data quality, interpretation may be adversely affected Atrial fibrillation Incomplete right bundle branch block Abnormal ECG When compared with ECG of 11-NOV-2022 06:04, Atrial fibrillation has replaced Sinus rhythm Confirmed by Toñito Paige ([id number]) on 12/09/2022 2:44:00 PM Referred By: Confirmed By:Toñito Paige
--- NOTE | 2022-12-09 14:46 | Electrocardiogram Report ---
Test Reason : Blood Pressure : / mmHG Vent. Rate : 100 BPM Atrial Rate : 100 BPM P-R Int : 264 ms QRS Dur : 114 ms QT Int : 358 ms P-R-T Axes : 000 070 -54 degrees QTc Int : 461 ms Sinus rhythm with 1st degree A-V block Premature atrial complexes Prolonged QT Abnormal ECG When compared with ECG of 08-DEC-2022 15:53, (unconfirmed) Sinus rhythm has replaced Atrial fibrillation ST now depressed in Anterior leads Confirmed by Toñito Paige ([id number]) on 12/09/2022 2:46:37 PM Referred By: Nova Rousseau Confirmed By:Toñito Paige
--- NOTE | 2022-12-09 15:11 | Electrocardiogram Report ---
Test Reason : Blood Pressure : / mmHG Vent. Rate : 078 BPM Atrial Rate : 078 BPM P-R Int : 272 ms QRS Dur : 120 ms QT Int : 438 ms P-R-T Axes : 072 078 263 degrees QTc Int : 499 ms Sinus rhythm with 1st degree A-V block Premature atrial complexes Right bundle branch block T wave abnormality, consider inferolateral ischemia Abnormal ECG When compared with ECG of 08-DEC-2022 18:05, (unconfirmed) Right bundle branch block is now Present Confirmed by Toñito Paige ([id number]) on 12/09/2022 3:11:17 PM Referred By: Nova Rousseau Confirmed By:Toñito Paige
[2022-12-09 16:34] LABS: Partial Thromboplastin Ratio > 4.9
[2022-12-09 16:44] LABS: Partial Thromboplastin Time > 139.0 Seconds (21.0-31.0)
--- NOTE | 2022-12-09 19:40 | Billing Data ---
Date of Service December 09, 2022 Coding Level of Care Code 20848 SUB INP/OBS CARE MIN
[2022-12-09 20:16] LABS: Partial Thromboplastin Ratio 2.2
[2022-12-09] MEDS: TAMSULOSIN HCL 0.4 MG CAP PO SCH (20:19)
[2022-12-09] MEDS: ATORVASTATIN 40 MG TAB PO SCH (20:19)
[2022-12-09 20:24] LABS: Partial Thromboplastin Time 62.4 Seconds (21.0-31.0)
[2022-12-10 06:24] LABS: Basophils # (auto) 0.09 K/uL (0-0.2); Basophils % (auto) 1.8 %; Eosinophils # (auto) 0.09 K/uL (0-0.50); Eosinophils % (auto) 1.8 %; Hematocrit (blood only) 41.8 % (42.0-52.0); Hemoglobin 13.4 g/dl (14.0-18.0); Immature Granulocytes # (auto) 0.05 K/uL (0.01-0.20); Lymphocytes # (auto) 0.68 K/uL (1.2-3.4); Lymphocytes % (auto) 13.3 %; Mean Corpuscular Hemoglobin 32.1 pg (25.0-34.0); Mean Corpuscular Hgb Conc 32.1 g/dL (32.0-36.0); Mean Platelet Volume 11.3 fL (9.4-12.4); Monocytes # (auto) 0.38 K/uL (0.11-0.59); Monocytes % (auto) 7.5 %; Neutrophils # (auto) 3.81 K/uL (1.40-6.50); Neutrophils % (auto) 74.6 %; Nucleated RBC # (auto) 0.08 K/uL (0-0.12); Nucleated RBC % (auto) 1.6 %; Platelet Count 177 K/uL (130-400); RDW Coefficient of Variation 18.3 % (11.5-14.5); RDW Standard Deviation 65.9 fL (36.4-46.3); Red Blood Count 4.18 M/uL (4.70-6.10)
[2022-12-10 06:36] LABS: Albumin Globulin Ratio 1.3 (0.9-2); Albumin Level 3.7 gm/dl (3.4-5.0); BUN Creatinine Ratio 22.4 (10-20); Bilirubin,Total 3.3 mg/dl (0.2-1.0); Calcium 9.4 mg/dl (8.6-10.3); Creatinine Clr Calc Pharmacy 40.3 ml/min; Est GFR (African American) 48.1 ml/min; Est GFR (Non-African American) 41.5 ml/min; Globulin 2.8 gm/dl (2.5-4.0); Potassium 4.2 mmol/L (3.5-5.1); Total Protein 6.5 gm/dl (6.0-8.3)
[2022-12-10 06:48] LABS: INR 1.2 (0.9-1.1); Prothrombin Time 12.5 Seconds (9.0-12.0)
[2022-12-10 07:31] LABS: Echinocytes 2+
[2022-12-10 07:32] LABS: Ovalocytes 1+
--- NOTE | 2022-12-10 08:25 | Hospitalist Progress Note ---
Date of Service December 10, 2022 Assessment & Plan (1) Elevated LFTs: (2) Atrial fibrillation with rapid ventricular response: (3) S/p TAVR (transcatheter aortic valve replacement), bioprosthetic: (4) CHF (congestive heart failure): (5) BPH with obstruction/lower urinary tract symptoms: (6) Depression with anxiety: Plan Yimi is a 76 year old male with history of Paroxysmal A Fib, CHF (HFpEF), S/p TAVR, HTN, trigeminal neuralgia, BPH, CAD, pHTN, gout, chronic anticoagulation, depression, anxiety, glaucoma, osteoarthritis, and lumbar spinal stenosis who presented from PCP office for concerns of jaundice. Patient was found to have elevated LFTs and Bilirubin levels and was admitted for evaluation. Elevated LFTs: - Elevation of LFTs and Bilirubin level on admission - Imaging: CXR, Chest CTA, CTAP, US Liver - Given patient's history including vague abdominal pain, anorexia, and notable weight loss, most drastic over the last month, combined with acute presentation of jaundice, elevated bilirubin, and elevated LFTs, clinical picture is concerning for malignancy at this time. * Imaging thus far not indicative of solid tissue mass * Imaging also not consistent with presentation of liver cirrhosis * Peripheral smear ordered for evaluation of liquid tumors * Upper GI malignancy (esophageal/stomach) remains on differential, would strongly support evaluation with EGD - GI Consult - Recommending MRCP and liver serologies * Contacted GI regarding concern for UGI malignancy --- LDH elevated (600), Creatinine stable (1.6), AST/ALT/AlkPhos/TBili remain elevated --- EGD scheduled Wednesday for ongoing evaluation of suspected UGI origin Macrocytic Anemia/Poikilocytosis - Evidenced on peripheral smear 12/09 - Could not exclude myelodysplasia --- Consultation to Hematology Atrial fibrillation with rapid ventricular response: - Chronic paroxysmal AFib, with history of RVR - Now noted to be in NSR - Cardiology Consult: Recommending ongoing Metoprolol and anticoagulation (with conversion to Eliquis upon discharge, curently on Heparin) S/p TAVR (transcatheter aortic valve replacement), bioprosthetic: - Recently performed on November 19 - he reports no change in his shortness of breath since this CHF (congestive heart failure): - Patient currently euvolemic - Continu Lasix BPH with obstruction/lower urinary tract symptoms: - Continue tamsulosin Depression with anxiety: - Continue Bupropion 150 mg q24h and Paroxetine 40 mg QAM Code: Full VTE Prophylaxis - IV Heparin (Eliquis on discharge) held for procedure Diet - low fat, low Na, NPO after midnight Disposition - admit to PCU Admission and Anticipated Discharge Date Admission Date: December 08, 2022 Supervising Physician Co-Signing Physician Notes I personally examined the patient and verified all tobar points of history and exam, discussed case, and agree with decision making with Dr Yeung no meaningful HPI today and family not present when i was there. coordinated with pathology, heme/onc, IR vitals noted nad breathing unlabored no accessory muscles good effort weight loss, jaundice, elevated INR - biliary pathology vs malignancy vs both. No overt solid tumors seen on extensive CT scanningperipheral smear concerning - marrow obtained, discussed with GI on 12/09anticipate endoscopic evaluationtomorrow A-fibrate now controlled, chronic diastolic chf compensated. heparin on hold for procedures otherwise as above Subjective 12/10: Yimi remains comfortable upon arrival. Patient denies any abdominal discomfort this AM. He is not experiencing nausea or emesis, but has no appetite. He denies diarrhea, constipation, fevers, or chills. Patient denies any chest pain, but notes that he has dyspnea at baseline (which is ultimately unchanged). Patient expressed understanding of upcoming tests, questions and concerns addressed. Physical Exam Physical Exam: Gen: NAD, alert, interactive, mild jaundice & scleral icterus HEENT: NCAT, supple, no LAD, no JVD Resp:Non-labored, no wheezing/rhonchi/rales, lung sounds slightly diminished on right CV:RRR, normal S1/S2, systolic murmur present at RUSB/LUSB Abd: Soft, non-distended, no TTP, normoactive bowels, no masses, Smith sign negative Extr: 2+ dp bilaterally, no edema Skin: No rashes lesions or erythema Results & Data Results & Data Vital Signs (Past 12 Hours) Vital Signs Temp Pulse Pulse Resp BP Pulse Ox O2 Del Method 12/10/22 08:02 36.5 C 80 20 98/68 L 98 Nasal Cannula 12/10/22 07:54 75 12/10/22 03:21 36.6 C 82 16 123/76 95 Nasal Cannula 12/09/22 22:00 76 12/09/22 23:11 36.3 C L 72 18 99/66 L 100 Nasal Cannula O2 Flow Rate 12/10/22 08:02 4 12/10/22 07:54 12/10/22 03:21 4 12/09/22 22:00 12/09/22 23:11 4 Diagnostic Findings CXR: 1. Moderate cardiomegaly. No evidence for pulmonary edema. 2. Small right pleural effusion, decreased in size since prior exam. Chest CTA: 1. No pulmonary embolus identified. 2. Atherosclerotic changes of the aorta. No aortic aneurysm. 3. Moderate right-sided pleural effusion. 4. Dependent atelectasis on the right. Mild scattered atelectasis bilaterally. CT AP 1. Mild prominence of the wall of the ascending colon may be secondary to underdistention. Colitis is not exited. 2. Hepatic steatosis. Small right hepatic cyst. 3. Small amount of fluid in the pelvis. Trace perihepatic fluid. 4. Please see accompanying CT chest for further details. US Liver 1. Hepatic steatosis. 2. Distended gallbladder. No shadowing gallstones are identified and there is no clear sonographic evidence of acute cholecystitis. Clinical and laboratory correlation will be required. If there is clinical concern for acalculous cholecystitis a hepatobiliary scan should be considered. 3. Trace perihepatic ascites. 4. Right pleural effusion. Peripheral Smear: The peripheral blood shows a macrocytic anemia with notable anisopoikilocytosis consisting of frequent echinocytes with some elliptocytes and acanthocytes. Occasional spherocytes and schistocytes are seen. Circulating nucleated red blood cells are fairly easy to find. There is no evidence of rouleaux, RBC agglutination, or basophilic stippling. The WBC is normal; however, there is an absolute lymphopenia. The remaining leukocytes are within normal absolute reference ranges. The granulocytes are appropriately segmented without dysplastic features. No circulating immature myeloid precursors or blasts are identified. The monocytes are morphologically mature. The lymphocytes are small to moderate in size and mature, without atypical features. The platelets are quantitatively normal. No dysplastic or giant forms are identified. The peripheral smear is remarkable for a macrocytic anemia. The patient's red cells show notable poikilocytosis with circulating nucleated red cells and a few spherocytes and schistocytes. Work-up to exclude a hemolytic anemia is recomm ended. Concern for an unknown malignancy is noted based on the patient's clinical features. The patient's MCV is seen to be slowly climbing with an increasing anemia. Given the morphologic findings, I cannot exclude myelodysplasia. Hematology consultation is recommended. Resident Activity Tracking Resident Involvement: Resident Care Provided Care Provided: [facility]
[2022-12-10] MEDS: ASPIRIN 81 MG ECTAB PO SCH (09:01)
[2022-12-10] MEDS: METOPROLOL TARTRATE 25 MG TAB PO SCH ×2 (09:02→21:27)
[2022-12-10] MEDS: buPROPion XL 150 MG TABCR PO SCH (09:02)
[2022-12-10] MEDS: POTASSIUM CHLORIDE CRTAB 20 MEQ TABCR PO SCH (09:02)
[2022-12-10] MEDS: PANTOprazole 40 MG TAB PO SCH (09:02)
[2022-12-10] MEDS: LORATADINE 10 MG TAB PO SCH (09:03)
[2022-12-10] MEDS: PARoxetine HCL 20 MG TAB PO SCH (09:03)
--- NOTE | 2022-12-10 09:59 | Gastroenterology Progress Note ---
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 Thank you for allowing us to participate in the care of this patient. Please call with any acute changes, questions or concerns. Please see addendum below with additional recommendation from my supervising physician. Admission and Anticipated Discharge Date Admission Date: December 08, 2022 Supervising Physician Co-Signing Physician Notes I performed a history and physical examination of the patient today, including specifically on physical exam - soft abdomen. I have discussed the patient's management with the advanced practitioner. Please refer to the nurse practitioner's note for the documented findings and plan of care. Can't get MRI due to Cochlear implant. Plan for EUS tomorrow. Subjective Pt was seen and evaluated, chart reviewed Notes some right sided pain, decreased appetite. No fever, chills, CP, SOB Review of Systems Review of Systems: All systems reviewed & are unremarkable except as noted in HPI & below Physical Exam Constitutional: WD/WN, vitals as above Respiratory: normal respiratory effort, lungs clear to auscultation Cardiovascular: Rate/Rhythm: regular rate Gastrointestinal (Abdomen): normal bowel sounds, soft, nontender, no hepatosplenomegaly Skin: no rashes, warm and dry Results & Data Vital Signs (Past 12 Hours) Vital Signs Temp Pulse Pulse Resp BP Pulse Ox O2 Del Method 12/10/22 08:02 36.5 C 80 20 98/68 L 98 Nasal Cannula 12/10/22 07:54 75 12/10/22 03:21 36.6 C 82 16 123/76 95 Nasal Cannula 12/09/22 22:00 76 12/09/22 23:11 36.3 C L 72 18 99/66 L 100 Nasal Cannula O2 Flow Rate 12/10/22 08:02 4 12/10/22 07:54 12/10/22 03:21 4 12/09/22 22:00 12/09/22 23:11 4 Laboratory Results 12/10/22 12/10/22 12/10/22 Range/Units 05:45 05:45 05:45 WBC 5.10 (4.8-10.8) K/ul RBC 4.18 L (4.70-6.10) M/uL Hgb 13.4 L (14.0-18.0) g/dl Hct 41.8 L (42.0-52.0) % MCV 100.0 (80.0-100.0) fL MCH 32.1 (25.0-34.0) pg MCHC 32.1 (32.0-36.0) g/dL RDW Std Deviation 65.9 H (36.4-46.3) fL RDW Coeff of Herrera 18.3 H (11.5-14.5) % Plt Count 177 (130-400) K/uL MPV 11.3 (9.4-12.4) fL Immature Gran % (Auto) 1.0 % Neut % (Auto) 74.6 % Lymph % (Auto) 13.3 % [place] % (Auto) 7.5 % Eos % (Auto) 1.8 % Baso % (Auto) 1.8 % Neut # (Auto) 3.81 (1.40-6.50) K/uL Lymph # (Auto) 0.68 L (1.2-3.4) K/uL [place] # (Auto) 0.38 (0.11-0.59) K/uL Eos # (Auto) 0.09 (0-0.50) K/uL Baso # (Auto) 0.09 (0-0.2) K/uL Immature Gran # (Auto) 0.05 (0.01-0.20) K/uL Absolute Nucleated RBC 0.08 (0-0.12) K/uL Nucleated RBC % (auto) 1.6 % Ovalocytes 1+ Echinocytes 2+ Peripher Smr Path Cons PT 12.5 H (9.0-12.0) Seconds INR 1.2 H (0.9-1.1) APTT (21.0-31.0) Seconds PTT Ratio Sodium 138 (136-145) mmol/L Potassium 4.2 (3.5-5.1) mmol/L Chloride 104 (98-107) mmol/L Carbon Dioxide 26 (21-32) mmol/L Anion Gap 8 (3-11) BUN 36 H (6-23) mg/dl Creatinine 1.61 H (0.6-1.4) mg/dl Est Cr Clr Drug Dosing 40.3 ml/min Est GFR ( Amer) 48.1 ml/min Est GFR (Non-Af Amer) 41.5 ml/min BUN/Creatinine Ratio 22.4 H (10-20) Glucose 95 (70-99(Fasting)) mg/dl Calcium 9.4 (8.6-10.3) mg/dl Iron (35-175) mcg/dl Ferritin (8-388) ng/ml Total Bilirubin 3.3 H (0.2-1.0) mg/dl AST 62 H (13-39) U/L ALT 72 H (7-52) U/L Alkaline Phosphatase 126 H (34-104) U/L Total Protein 6.5 (6.0-8.3) gm/dl Albumin 3.7 (3.4-5.0) gm/dl Globulin 2.8 (2.5-4.0) gm/dl Albumin/Globulin Ratio 1.3 (0.9-2) Ceruloplasmin ROLANDO Screen Anti-Mitochondrial Ab Anti-Smooth Muscle Ab Tiss Transglutamin IgA CMV IgM Ab CMV IgG Ab/TORCH EBV Capsid Ag IgG Ab EBV Capsid Ag IgM Ab Hepatitis A IgM Ab Hep Bs Antigen Hep Bs Ag Confirmation Hep B Core IgM Ab Hepatitis C Ab (EIA) 12/09/22 12/09/22 12/09/22 Range/Units 19:13 17:05 14:15 WBC (4.8-10.8) K/ul RBC (4.70-6.10) M/uL Hgb (14.0-18.0) g/dl Hct (42.0-52.0) % MCV (80.0-100.0) fL MCH (25.0-34.0) pg MCHC (32.0-36.0) g/dL RDW Std Deviation (36.4-46.3) fL RDW Coeff of Herrera (11.5-14.5) % Plt Count (130-400) K/uL MPV (9.4-12.4) fL Immature Gran % (Auto) % Neut % (Auto) % Lymph % (Auto) % [place] % (Auto) % Eos % (Auto) % Baso % (Auto) % Neut # (Auto) (1.40-6.50) K/uL Lymph # (Auto) (1.2-3.4) K/uL [place] # (Auto) (0.11-0.59) K/uL Eos # (Auto) (0-0.50) K/uL Baso # (Auto) (0-0.2) K/uL Immature Gran # (Auto) (0.01-0.20) K/uL Absolute Nucleated RBC (0-0.12) K/uL Nucleated RBC % (auto) % Ovalocytes Echinocytes Peripher Smr Path Cons PT (9.0-12.0) Seconds INR (0.9-1.1) APTT 62.4 H* > 139.0 H* (21.0-31.0) Seconds PTT Ratio 2.2 > 4.9 Sodium (136-145) mmol/L Potassium (3.5-5.1) mmol/L Chloride (98-107) mmol/L Carbon Dioxide (21-32) mmol/L Anion Gap (3-11) BUN (6-23) mg/dl Creatinine (0.6-1.4) mg/dl Est Cr Clr Drug Dosing ml/min Est GFR ( Amer) ml/min Est GFR (Non-Af Amer) ml/min BUN/Creatinine Ratio (10-20) Glucose (70-99(Fasting)) mg/dl Calcium (8.6-10.3) mg/dl Iron (35-175) mcg/dl Ferritin (8-388) ng/ml Total Bilirubin (0.2-1.0) mg/dl AST (13-39) U/L ALT (7-52) U/L Alkaline Phosphatase (34-104) U/L Total Protein (6.0-8.3) gm/dl Albumin (3.4-5.0) gm/dl Globulin (2.5-4.0) gm/dl Albumin/Globulin Ratio (0.9-2) Ceruloplasmin ROLANDO Screen Anti-Mitochondrial Ab Anti-Smooth Muscle Ab Tiss Transglutamin IgA CMV IgM Ab CMV IgG Ab/TORCH EBV Capsid Ag IgG Ab EBV Capsid Ag IgM Ab Hepatitis A IgM Ab Hep Bs Antigen Hep Bs Ag Confirmation Hep B Core IgM Ab Hepatitis C Ab (EIA) 12/09/22 12/09/22 Range/Units 12:22 12:22 WBC (4.8-10.8) K/ul RBC (4.70-6.10) M/uL Hgb (14.0-18.0) g/dl Hct (42.0-52.0) % MCV (80.0-100.0) fL MCH (25.0-34.0) pg MCHC (32.0-36.0) g/dL RDW Std Deviation (36.4-46.3) fL RDW Coeff of Herrera (11.5-14.5) % Plt Count (130-400) K/uL MPV (9.4-12.4) fL Immature Gran % (Auto) % Neut % (Auto) % Lymph % (Auto) % [place] % (Auto) % Eos % (Auto) % Baso % (Auto) % Neut # (Auto) (1.40-6.50) K/uL Lymph # (Auto) (1.2-3.4) K/uL [place] # (Auto) (0.11-0.59) K/uL Eos # (Auto) (0-0.50) K/uL Baso # (Auto) (0-0.2) K/uL Immature Gran # (Auto) (0.01-0.20) K/uL Absolute Nucleated RBC (0-0.12) K/uL Nucleated RBC % (auto) % Ovalocytes Echinocytes Peripher Smr Path Cons PT (9.0-12.0) Seconds INR (0.9-1.1) APTT (21.0-31.0) Seconds PTT Ratio Sodium (136-145) mmol/L Potassium (3.5-5.1) mmol/L Chloride (98-107) mmol/L Carbon Dioxide (21-32) mmol/L Anion Gap (3-11) BUN (6-23) mg/dl Creatinine (0.6-1.4) mg/dl Est Cr Clr Drug Dosing ml/min Est GFR ( Amer) ml/min Est GFR (Non-Af Amer) ml/min BUN/Creatinine Ratio (10-20) Glucose (70-99(Fasting)) mg/dl Calcium (8.6-10.3) mg/dl Iron 110 (35-175) mcg/dl Ferritin 365.4 (8-388) ng/ml Total Bilirubin (0.2-1.0) mg/dl AST (13-39) U/L ALT (7-52) U/L Alkaline Phosphatase (34-104) U/L Total Protein (6.0-8.3) gm/dl Albumin (3.4-5.0) gm/dl Globulin (2.5-4.0) gm/dl Albumin/Globulin Ratio (0.9-2) Ceruloplasmin Pending ROLANDO Screen Pending Anti-Mitochondrial Ab Pending Anti-Smooth Muscle Ab Pending Tiss Transglutamin IgA Pending CMV IgM Ab Pending CMV IgG Ab/TORCH Pending EBV Capsid Ag IgG Ab Pending EBV Capsid Ag IgM Ab Pending Hepatitis A IgM Ab Pending Hep Bs Antigen Pending Hep Bs Ag Confirmation Pending Hep B Core IgM Ab Pending Hepatitis C Ab (EIA) Pending
--- NOTE | 2022-12-10 10:35 | Surgery Progress Note ---
Date of Service December 10, 2022 Assessment & Plan (1) Atrial fibrillation with rapid ventricular response: Plan: His ultrasound images and results were personally reviewed and interpreted by myself, no stones seen or any signs of cholecystitis On clinical exam he has no abdominal pain which further solidifies he does not have cholecystitis GI is planning an EUS tomorrow for further evaluation of his elevated LFTs We will follow-up on these results Due to his recent TAVR, would hold off on any surgical intervention at this time until he is further out from his valve replacement (2) Elevated LFTs: Admission and Anticipated Discharge Date Admission Date: December 08, 2022 Subjective Patient seen and examined. Denies abdominal pain. No nausea or vomiting. Review of Systems Constitutional: no fever and no chills Physical Exam Constitutional: WD/WN, vitals as above Gastrointestinal (Abdomen): Inspection/Auscultation: abdomen normal to inspection; abdomen not distended Percussion/Palpation: abdomen soft; abdomen nontender and no guarding Results & Data Vital Signs (Past 12 Hours) Vital Signs Temp Pulse Pulse Resp BP Pulse Ox O2 Del Method 12/10/22 09:54 Nasal Cannula 12/10/22 08:02 36.5 C 80 20 98/68 L 98 Nasal Cannula 12/10/22 07:54 75 12/10/22 03:21 36.6 C 82 16 123/76 95 Nasal Cannula 12/09/22 23:11 36.3 C L 72 18 99/66 L 100 Nasal Cannula O2 Flow Rate 12/10/22 09:54 4 12/10/22 08:02 4 12/10/22 07:54 12/10/22 03:21 4 12/09/22 23:11 4 PG Care Time/CCT Total # of Minutes Spent Total Time Spent with Patient: Total time spent is greater than 50% in coordination of care (as documented) at patient's floor/unit and/or counseling patient: Coding Level of Care Code 07697 SUB INP/OBS CARE 06/17MIN Diagnoses Atrial fibrillation with rapid ventricular response I48.91 Elevated LFTs R79.89
[2022-12-10 12:22] LABS: Reticulocyte % 1.8 % (0.5-2.0); Reticulocytes # 0.07 10^6/uL (0.02-0.10)
--- NOTE | 2022-12-10 14:57 | CT Scan Report ---
CT GUIDED BONE MARROW BIOPSY CLINICAL HISTORY: MDS; anemia PROCEDURE: Procedure and risks were explained. Informed consent was obtained. A final time out was co mpleted. The patient was placed prone on the CT exam table. The left gluteal region was prepped and d raped in sterile fashion. 1% buffered lidocaine was utilized for skin anesthesia. Utilizing CT guidance, an 11-gauge bone biopsy needle was advanced into the left iliac bone. Multiple aspirates and one core was obtained and given to the lab. The needle was removed and Band-Aid applie d. The patient tolerated the procedure well. Vital signs will be monitored postprocedure. IMPRESSION: Bone marrow biopsy as above. Performed, dictated, and signed by Nas Erickson PA-C; to be co-signed by Dr. Kimo Mora. Electronically signed by: Kimo Mora M.D. 12/10/2022 3:12 PM
[2022-12-10 17:03] LABS: Anti Mitochondrial Antibody NEGATIVE (NEGATIVE); Anti Nuclear Antibody Screen NEGATIVE (NEGATIVE); CMV IgG Antibody <0.60 U/mL; CMV IgM Antibody <30.00 AU/mL; Ceruloplasmin 41 mg/dL (18-36); EBV Virus Capsid Ag IgG Ab >750.00 U/mL; HBSAG NON-REACTIVE (NON-REACTIVE); Hepatitis A Antibody IgM NON-REACTIVE (NON-REACTIVE); Hepatitis B Core Antibody IgM NON-REACTIVE (NON-REACTIVE); Smooth Muscle Antibody NEGATIVE (NEGATIVE); Transglutaminase, Tissue IgA <1.0 U/mL
--- NOTE | 2022-12-10 20:16 | Billing Data ---
Date of Service December 10, 2022 Coding Level of Care Code 94957 SUB INP/OBS CARE MIN
[2022-12-10] MEDS: ATORVASTATIN 40 MG TAB PO SCH (21:27)
[2022-12-10] MEDS: TAMSULOSIN HCL 0.4 MG CAP PO SCH (21:27)
--- NOTE | 2022-12-11 05:56 | Consultation ---
Date of Consultation December 10, 2022 Assessment & Plan (1) Elevated LFTs: Modest elevation of transaminases and elevated bilirubin but with direct bilirubin only marginally above normal range with the predominant portion of total bilirubin apparently indirectl. GI work-up is focusing on the possibility of biliary tree issues though the lack of more significant elevation of direct bilirubin would be atypical for that and while he does have gallbladder distention, he does not have classic physical exam signs of a major biliary disorder. Await EGD/EUS for better definition. As discussed below, there may be some element of compensated hemolysis in the cross his aortic valve which could contribute to an indirect bilirubin elevation. (2) Iron deficiency: Earlier this year patient did have signs of iron deficiency but with supplementation his ferritin is now more than adequate. Coupled with the question of changes in the colon on imaging, follow-up colonoscopy would be worthwhile at some point but it would be an elective procedure. As discussed under the review of his Red cell abnormalities, there may be some ongoing shear of red cells because his abnormal valves and then more recently his replaced aortic valve. If so, he may be having some ongoing iron losses as urine hemosiderin - that assessment is pending. Work-up for the elevated LFTs will include an EGD to be performed during this hospitalization which would exclude any immediately threatening proximal GI sources of blood loss (3) Pleural effusion on right: Right pleural effusion seems to be improving and is almost certainly cardiac in etiology especially in this nonsmoker (4) Colitis: Without major symptoms there is some question of thickening of the colon on imaging. Given some recent questions about iron deficiency, elective colonoscopy in the not too distant future which would certainly be a consideration (5) S/p TAVR (transcatheter aortic valve replacement), bioprosthetic: Symptomatically patient has improved at least somewhat and it is encouraging to see improvement of the right pleural effusion suggesting improved cardiac function. As discussed under the review of the red blood cell abnormalities there may be some question of red cell shear both historically across his previous tight aortic valve and then even ongoing status post valve replacement (6) Red blood cell abnormality: 12/09/2022 pathologist review of the peripheral smear shows macrocytic (though measured MCV is only high normal) anemia with notable anisopoikilocytosis consisting of frequent echinocytes and some elliptocytes and acanthocytes. Occasional spherocytes and schistocytes are seen. Nucleated red blood cells were noted. There was no evidence of rouleaux, red cell agglutination, or major basophilic stippling. Other than an absolute lymphopenia, white cell numbers and morphology were unremarkable. There were no circulating immature wbcs. Platelets were unremarkable and quantitatively normal. July, assessment shows good levels of B12 and folic acid. He previously did have low normal ferritin with low percent saturation but ferritin is currently quite adequate. Note that the hemoglobin has been stable and certainly in the adequate range, reticulocyte count is not elevated but he does have an elevated LDH. Spleen is intact but normal in size. Status post TAVR, there may be some element of shear damage of red cells crossing the valve and that might explain much of what we are seeing instead of altered Red cell morphology. That would not necessarily explain the nucleated red blood cells in the absence of a more major hemolysis response with elevated reticulocyte counts and increased marrow activity. He has a presumably functional spleen. It is perhaps, therefore, the nucleated red blood cells as much is the variable Red cell morphology that suggest some possibility for an underlying primary hematologic disorder. It is also possible that macrocytosis may be muted by the historic iron deficiency. That all being said, white cell series and platelets are intact and numerically adequate other than the mild lymphopenia and there certainly is no suggestion of immature cells or more acute hematologic process. Nevertheless, especially as we look at his bigger picture, optimal definition of marrow and help us better understand whether there may be an element of myelodysplasia, myelofibrosis, or other intrinsic marrow process. If the bone marrow is unremarkable, we might explore whether there is some intrinsic red blood cell membrane abnormality though that seems less likely in the absence of a personal or family history. Do note that the bilirubin elevation is primarily composed of indirect bilirubin and even in the absence of marked anemia and elevation of reticulocytes, there may be some element of compensated hemolysis which could lie behind that. LDH elevation would certainly be consistent with that. We will check haptoglobin and urine hemosiderin to further review Although folic acid levels were historically normal, folic acid supplementation would be prudent while there is some suspicion of possible low-level hemolysis (7) DVT (deep venous thrombosis): Duplex study did not show active/acute DVT but did suggest possibly some historic thrombosis of the femoral vein. In and of itself that would not necessarily warrant anticoagulation but he has atrial fibrillation suggest he will be on indefinite anticoagulation on that basis. It would be important to continue to be mindful of any symptoms that suggest thrombotic episodes and also to always incorporate aggressive DVT prophylaxis during appropriate setting such as hospitalizations or surgical intervention (8) Lymphopenia: Modest lymphopenia without clinical suggestion of major immune compromise. We will check immunoglobulins to ensure that he has relatively intact immune function. No clear HIV risk factors but screening for that at some point would not be unreasonable Plan 1. Await GI work-up but the transaminase elevation is only modest, he does not have major symptoms of cholecystitis or biliary obstruction, and his hyperbilirubinemia is primarily from indirect bilirubin 2. Especially with nucleated red blood cells and a possibly masked elevated MCV, marrow aspiration and biopsy are pending to review for any intrinsic production defect related to myelodysplasia or myelofibrosis. 3. Some consideration for Red cell shear across his abnormal and now replaced v alve. Haptoglobin and urine hemosiderin are pending but if this is occurring he is well compensated without marked elevation of reticulocytes and with maintained hemoglobin levels 4. Given the latter, empiric folic acid supplementation would be worthwhile even with previously normal levels 5. If marrow is unremarkable and there is no dramatic suggestion of Red cell shear, may also want to explore the possibility of intrinsic red cell membrane abnormalities though the seems unlikely 6. We will check immunoglobulin levels to follow-up on the lymphopenia, future consideration should be given to HIV screening 7. No signs of acute or threatening DVT, patient will be on anticoagulation by virtue of his atrial fibrillation but should be alert to any potential signs of VTE and quickly react to those for evaluation. If routine anticoagulation is ever discontinued, he should always have aggressive DVT prophylaxis 8. Await EGD and should consider future colonoscopy to evaluate for any possi ble GI losses underlying previous iron deficiency History of Present Illness Attending Physician: Kevin Harkins DO History of Present Illness 76-year-old gentleman status post 11/19/2022 TAVR who presents with mild elevation of bilirubin and transaminases. History has been at least recently most focused on cardiac issues with a history of coronary artery disease, aortic stenosis, mitral regurgitation/mitral valve prolapse, and ascending thoracic aneurysm. He had presented with precipitous cardiac dysfunction/dyspnea and a status post TAVR on 11/19/2022. He presents now with jaundice but also does have paroxysmal atrial fibrillation. At the time of my examination, however, he is not having major chest pain, breathing difficulties, palpitations, or other cardiac symptoms. Concerns been raised over elevation of his bilirubin and abnormalities on the peripheral smear. He has no history of malignancy or specific blood disorders. He is not a significant alcohol drinker. Past medical history does include additional issues including perhaps a modest cognitive impairment, long-term hearing loss status postcochlear implants, hypertension/hyperlipidemia, CKD, BPH/LUTS, glaucoma, DJD and spinal stenosis, and obstructive sleep apnea He does not have a significant tobacco history and has no specific history of malignancy Allergies Allergy/AdvReac Type Severity Reaction Status Date / Time baclofen Allergy Unknown PT & PT'S Verified 12/08/22 20:11 SPOUSE DENIES ANY ALLERGIES OR SENSATIVITY TO MED cyclobenzaprine Allergy Unknown PT & PT'S Verified 12/08/22 20:11 [From Flexeril] SPOUSE DENIES ANY ALLERGIES OR SENSATIVITY TO MED doxazosin Allergy Unknown PT & PT'S Verified 12/08/22 20:11 SPOUSE DENIES ANY ALLERGIES OR SENSATIVITY TO MED doxycycline Allergy Unknown PT & PT'S Verified 12/08/22 20:11 SPOUSE DENIES ANY ALLERGIES OR SENSATIVITY TO MED duloxetine Allergy Unknown PT & PT'S Verified 12/08/22 20:11 SPOUSE DENIES ANY ALLERGIES OR SENSATIVITY TO MED gabapentin Allergy Unknown PT & PT'S Verified 12/08/22 20:11 SPOUSE DENIES ANY ALLERGIES OR SENSATIVITY TO MED lisinopril Allergy Unknown PT & PT'S Verified 12/08/22 20:11 SPOUSE DENIES ANY ALLERGIES OR SENSATIVITY TO MED naproxen Allergy Unknown PT & PT'S Verified 12/08/22 20:11 SPOUSE DENIES ANY ALLERGIES OR SENSATIVITY TO MED nortriptyline [From Pamelor] Allergy Unknown PT & PT'S Verified 12/08/22 20:11 SPOUSE DENIES ANY ALLERGIES OR SENSATIVITY TO MED oxcarbazepine Allergy Unknown PT & PT'S Verified 12/08/22 20:11 SPOUSE DENIES ANY ALLERGIES OR SENSATIVITY TO MED Penicillins Allergy Unknown PT & PT'S Verified 12/08/22 20:11 SPOUSE DENIES ANY ALLERGIES OR SENSATIVITY TO MED Home Medications Medication Instructions Recorded Confirmed Type acetaminophen 500 mg tablet 1,000 mg PO TID PRN fever or pain 11/18/18 12/08/22 Rx #90 tabs aspirin 81 mg tablet,delayed 81 mg PO DAILY #90 tabs 06/09/22 12/08/22 Rx release metoprolol succinate 25 mg 12.5 mg PO QAM #30 tabs 08/22/22 12/08/22 Rx tablet,extended release 24 hr Wheelchair (Manual) #1 ea 09/17/22 12/08/22 Rx Oxygen Home #1 ea 10/12/22 12/08/22 Rx atorvastatin 80 mg tablet 80 mg PO HS #90 tabs 11/05/22 12/08/22 Rx bupropion HCl 150 mg 24 hr tablet, 150 mg PO QAM #90 tabs 11/05/22 12/08/22 Rx extended release (Wellbutrin XL) fluticasone propionate 50 2 spray intranasal DAILY #48 grams 11/05/22 12/08/22 Rx mcg/actuation nasal spray,suspension (Flonase Allergy Relief) pantoprazole 40 mg tablet,delayed 40 mg PO DAILY #90 tabs 11/05/22 12/08/22 Rx release paroxetine HCl 40 mg tablet 40 mg PO QAM #90 tabs 11/05/22 12/08/22 Rx potassium chloride 20 mEq 20 meq PO QAM #90 tabs 11/05/22 12/08/22 Rx tablet,extended release tamsulosin 0.4 mg capsule 0.4 mg PO HS #90 caps 11/05/22 12/08/22 Rx furosemide 40 mg tablet (Lasix) 40 mg PO DAILY 11/09/22 12/08/22 History loratadine 10 mg tablet 10 mg PO DAILY 11/09/22 12/08/22 History Patient History Medical History (Updated 12/11/22 @ 06:17 by Reuben Mcneal MD) Acute heart failure with preserved ejection fraction Aneurysm, thoracic aortic pt unaware of size, follows with Dr. Paige Aortic atherosclerosis Aortic stenosis, severe BPH with obstruction/lower urinary tract symptoms CAD (coronary artery disease) Cervical disc disease Chronic sinusitis Cognitive disorder Coronary artery calcification Depression with anxiety Dyslipidemia Glaucoma Hearing loss Hepatic steatosis History of central retinal vein occlusion Hypertension Iron deficiency Lower GI bleed no current issues Lumbar spinal stenosis Mitral regurgitation MVP (mitral valve prolapse) Osteoarthritis PAC (premature atrial contraction) PAF (paroxysmal atrial fibrillation) Sleep apnea Trigeminal neuralgia received radiation for this, having numbess/tingling to right side of face since this Vitamin D deficiency Surgical History H/O cataract extraction (2013) H/O colonoscopy History of cochlear implant (01/12/12) BILATERAL History of pilonidal cyst removed History of umbilical hernia repair S/P foot surgery, right (12/2010) removal of heel spur S/P laser trabeculoplasty of eye (10/2014) b/l S/P nasal endoscopy with nasal polypectomy (2011) S/P rotator cuff repair b/l shoulders S/p TAVR (transcatheter aortic valve replacement), 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) Family History Mother No pertinent family history Other Hypertension Denies family history of Ovarian cancer Prostate cancer Diabetes Myocardial infarction Breast cancer Colorectal cancer Cancer Social History Smoking Status: Never smoker Second Hand Exposure: No; Do You Dip or Chew Tobacco: No; Tobacco Cessation Education Requested by Patient: No Hx Alcohol Use: No Hx Substance Use: No Preferred Language: Chinese Communication Ability: Effective Visual Impairment: No Limitations Hearing Ability: Cochlear Implant Land Surveyor Required: No Beliefs That Will Affect Care: None marital status: Current Living Situation: Spouse Current Living Situation Comment: with and daughter current occupational status: retired How many Children do You have: 1 Other Information That Helps Us Care for You: No Feels Safe at Home: Yes Safety Concerns: Feels Safe At This Time Childhood Exposure to Second-Hand Smoke: Yes Diet: regular Diet Comment: regular caffeine: Yes (Soda 6 per day. Coffee 1 cup per day.) during the past year weight has: remained stable Dental Care, Regularly: No Physical Activity Frequency: Daily Seatbelt Use: sometimes Sunscreen Use: No Assistive Devices: Cane, CPAP, Oxygen - at Night and Walker Assistive Devices Comment: cane at bedside Physical Exam Physical Exam: Alert, cooperative, seems in no distress. Earlier in the day I had difficulty arousing him but upon return in the early afternoon he was wide-awake, completely appropriate, and seemed in no acute distress. Only major immediate issue was fairly severe hearing loss. Lungs do show decreased breath sounds on the right side but he is not tachypneic not using accessory muscles. Cardiac rhythm seems relatively regular with a systolic murmur noted but without hyperdynamic precordium. Abdominal examination did not shows splenic tenderness or enlargement, liver edge seems relatively smooth and nontender. There was no ascites. He has hearing loss made a cognitive evaluation somewhat limited but he certainly seems to be fluent, reasonably appropriately responsive to questions, without gross cognitive impairment. Other than the hearing loss his neurologic exam was nonfocal Results & Data Vital Signs (Past 12 Hours) Vital Signs Temp Pulse Pulse Pulse Resp BP Pulse Ox 12/11/22 04:01 36.6 C 88 18 112/79 93 12/10/22 21:59 90 12/10/22 23:26 36.5 C 99 H 18 118/78 100 12/10/22 21:41 12/10/22 19:24 36.6 C 81 18 103/68 100 12/10/22 18:03 36.6 C 85 16 123/76 100 O2 Del Method O2 Flow Rate 12/11/22 04:01 Nasal Cannula 3 12/10/22 21:59 12/10/22 23:26 Nasal Cannula 3 12/10/22 21:41 Nasal Cannula 4 12/10/22 19:24 Nasal Cannula 3 12/10/22 18:03 Nasal Cannula 3 Laboratory Results Laboratory Results - last 24 hr 12/09/22 12/09/22 12/10/22 12:22 17:05 05:45 WBC RBC Hgb Hct MCV MCH MCHC RDW Std Deviation RDW Coeff of Herrera Plt Count MPV Immature Gran % (Auto) Neut % (Auto) Lymph % (Auto) [place] % (Auto) Eos % (Auto) Baso % (Auto) Reticulocyte % (Auto) Neut # (Auto) Lymph # (Auto) [place] # (Auto) Eos # (Auto) Baso # (Auto) Reticulocyte # Immature Gran # (Auto) Absolute Nucleated RBC Nucleated RBC % (auto) Ovalocytes Echinocytes Peripher Smr Path Cons PT 12.5 H INR 1.2 H Sodium Potassium Chloride Carbon Dioxide Anion Gap BUN Creatinine Est Cr Clr Drug Dosing Est GFR ( Amer) Est GFR (Non-Af Amer) BUN/Creatinine Ratio Glucose Calcium Total Bilirubin AST ALT Alkaline Phosphatase Lactate Dehydrogenase Total Protein Albumin Globulin Albumin/Globulin Ratio Ceruloplasmin 41 H ROLANDO Screen NEGATIVE Anti-Mitochondrial Ab NEGATIVE Anti-Smooth Muscle Ab NEGATIVE Tiss Transglutamin IgA <1.0 CMV IgM Ab <30.00 CMV IgG Ab/TORCH <0.60 EBV Capsid Ag IgG Ab >750.00 H EBV Capsid Ag IgM Ab <36.00 Hepatitis A IgM Ab NON-REACTIVE Hep Bs Antigen NON-REACTIVE Hep Bs Ag Confirmation TNP Hep B Core IgM Ab NON-REACTIVE Hepatitis C Ab (EIA) NON-REACTIVE BM Chromosome Analysis Flow Cytometry [facility] 12/10/22 12/10/22 12/10/22 05:45 05:45 11:56 WBC 5.10 RBC 4.18 L Hgb 13.4 L Hct 41.8 L MCV 100.0 MCH 32.1 MCHC 32.1 RDW Std Deviation 65.9 H RDW Coeff of Herrera 18.3 H Plt Count 177 MPV 11.3 Immature Gran % (Auto) 1.0 Neut % (Auto) 74.6 Lymph % (Auto) 13.3 Cla[place]orne % (Auto) 7.5 Eos % (Auto) 1.8 Baso % (Auto) 1.8 Reticulocyte % (Auto) 1.8 Neut # (Auto) 3.81 Lymph # (Auto) 0.68 L [place] # (Auto) 0.38 Eos # (Auto) 0.09 Baso # (Auto) 0.09 Reticulocyte # 0.07 Immature Gran # (Auto) 0.05 Absolute Nucleated RBC 0.08 Nucleated RBC % (auto) 1.6 Ovalocytes 1+ Echinocytes 2+ Peripher Smr Path Cons PT INR Sodium 138 Potassium 4.2 Chloride 104 Carbon Dioxide 26 Anion Gap 8 BUN 36 H Creatinine 1.61 H Est Cr Clr Drug Dosing 40.3 Est GFR ( Amer) 48.1 Est GFR (Non-Af Amer) 41.5 BUN/Creatinine Ratio 22.4 H Glucose 95 Calcium 9.4 Total Bilirubin 3.3 H AST 62 H ALT 72 H Alkaline Phosphatase 126 H Lactate Dehydrogenase Total Protein 6.5 Albumin 3.7 Globulin 2.8 Albumin/Globulin Ratio 1.3 Ceruloplasmin ROLANDO Screen Anti-Mitochondrial Ab Anti-Smooth Muscle Ab Tiss Transglutamin IgA CMV IgM Ab CMV IgG Ab/TORCH EBV Capsid Ag IgG Ab EBV Capsid Ag IgM Ab Hepatitis A IgM Ab Hep Bs Antigen Hep Bs Ag Confirmation Hep B Core IgM Ab Hepatitis C Ab (EIA) BM Chromosome Analysis Flow Cytometry [facility] 12/10/22 12/10/22 11:56 14:56 WBC RBC Hgb Hct MCV MCH MCHC RDW Std Deviation RDW Coeff of Herrera Plt Count MPV Immature Gran % (Auto) Neut % (Auto) Lymph % (Auto) [place] % (Auto) Eos % (Auto) Baso % (Auto) Reticulocyte % (Auto) Neut # (Auto) Lymph # (Auto) [place] # (Auto) Eos # (Auto) Baso # (Auto) Reticulocyte # Immature Gran # (Auto) Absolute Nucleated RBC Nucleated RBC % (auto) Ovalocytes Echinocytes Peripher Smr Path Cons PT INR Sodium Potassium Chloride Carbon Dioxide Anion Gap BUN Creatinine Est Cr Clr Drug Dosing Est GFR ( Amer) Est GFR (Non-Af Amer) BUN/Creatinine Ratio Glucose Calcium Total Bilirubin AST ALT Alkaline Phosphatase Lactate Dehydrogenase 603 H Total Protein Albumin Globulin Albumin/Globulin Ratio Ceruloplasmin ROLANDO Screen Anti-Mitochondrial Ab Anti-Smooth Muscle Ab Tiss Transglutamin IgA CMV IgM Ab CMV IgG Ab/TORCH EBV Capsid Ag IgG Ab EBV Capsid Ag IgM Ab Hepatitis A IgM Ab Hep Bs Antigen Hep Bs Ag Confirmation Hep B Core IgM Ab Hepatitis C Ab (EIA) BM Chromosome Analysis Pending Flow Cytometry Comment Pending Diagnostic Findings Chest X-Ray 12/08/22 15:43 XR chest 1V not portable CLINICAL HISTORY: weakness COMPARISON STUDY: Chest radiograph November 16, 2022. FINDINGS: There is mild elevation of the right hemidiaphragm. Small right pleural effusion has decreased in size since prior exam. There is no evidence for pulmonary edema. Moderate cardiomegaly is again noted. There is a prosthetic aortic valve. No pneumothorax. There is no consolidation to suggest pneumonia. IMPRESSION: 1. Moderate cardiomegaly. No evidence for pulmonary edema. 2. Small right pleural effusion, decreased in size since prior exam. ACT 112: Negative or not required by law. Electronically signed by: Kervin Bernard M.D. 12/08/2022 4:57 PM Abdomen/Pelvis CT 12/08/22 18:31 Exam(s): CT ABDOMEN + PELVIS With Contrast IV Amt: 118 ml optiray 320 EXAM: CT Abdomen and Pelvis With Intravenous Contrast CLINICAL HISTORY: Reason for exam: elevated LFTs, post prandial pain. TECHNIQUE: Axial computed tomography images of the abdomen and pelvis with intravenous contrast. CTDI is 25.12 mGy and DLP is 1263.54 mGy-cm. Automated exposure control was utilized for the study. A dose lowering technique was utilized adhering to the principles of ALARA. CONTRAST: Patient received 118 ml optiray 320 of IV contrast COMPARISON: CT abdomen/pelvis on 07/11/2021 FINDINGS: Lung bases: Please see accompanying CT chest for further details. ABDOMEN: Liver: Hepatic steatosis. Small right hepatic cyst. Gallbladder and bile ducts: Distended gallbladder. Hyperdense material in the gallbladder may represent artifact versus stones/sludge. No evidence of inflammation. No ductal dilation. Pancreas: Unremarkable. No mass. No ductal dilation. Spleen: Unremarkable. No splenomegaly. Adrenals: Unremarkable. No mass. Kidneys and ureters: Small hypodensities in the kidneys are too small to definitively characterize. No hydronephrosis or obstructing stone. Stomach and bowel: Mild prominence of the wall of the ascending colon may be secondary to underdistention. Colitis is not exited. Evaluation of the stomach is limited by underdistention. Diverticulosis without evidence of diverticulitis. No small bowel obstruction. PELVIS: Appendix: No findings to suggest acute appendicitis. Bladder: Distended bladder. No significant bladder wall thickening or stone. Reproductive: Mild prostatomegaly. ABDOMEN and PELVIS: Intraperitoneal space: Small amount of fluid in the pelvis. Trace perihepatic fluid. No free air. Small stable calcified nodular densities in the left lower quadrant could represent calcified lymph nodes. Bones/joints: Degenerative changes of the spine. Grade 1 anterolisthesis of L4 on L5. No acute fracture. No dislocation. Soft tissues: Unremarkable. Vasculature: Phleboliths in the pelvis. Atherosclerotic changes of the vasculature. No aortic aneurysm or dissection. Lymph nodes: Unremarkable. No enlarged lymph nodes. IMPRESSION: 1. Mild prominence of the wall of the ascending colon may be secondary to underdistention. Colitis is not exited. 2. Hepatic steatosis. Small right hepatic cyst. 3. Small amount of fluid in the pelvis. Trace perihepatic fluid. 4. Please see accompanying CT chest for further details. Electronically signed by: Avril Russ M.D. 12/08/22 20:27 PM Chest CTA 12/08/22 18:31 Exam(s): CTA CHEST IV Amt: 118 ml optiray 320 EXAM: CT Angiography Chest With Intravenous Contrast CLINICAL HISTORY: Reason for exam: PE. TECHNIQUE: Axial computed tomographic angiography images of the chest with intravenous contrast. Automated exposure control was utilized for the study. A dose lowering technique was utilized adhering to the principles of ALARA. MIP reconstructed images were created and reviewed. COMPARISON: CT chest on 11/15/2017 FINDINGS: Pulmonary arteries: Unremarkable. No pulmonary embolus identified. Aorta: Atherosclerotic changes of the aorta. No aortic aneurysm. Hepatic veins: Reflux of contrast into the hepatic veins is suggestive of elevated right heart pressures. Lungs: Small calcified granulomas in the right lower lobe. Dependent atelectasis on the right. Mild scattered atelectasis bilaterally. No mass. Pleural space: Moderate right-sided pleural effusion. No pneumothorax. Heart: Mild cardiomegaly. Coronary artery calcifications. TAVR. Mediastinum: Nonspecific mildly prominent mediastinal lymph nodes. Bones/joints: Degenerative changes of the spine. No acute fracture. No dislocation. Soft tissues: Unremarkable. Lymph nodes: Unremarkable. No enlarged lymph nodes. IMPRESSION: 1. No pulmonary embolus identified. 2. Atherosclerotic changes of the aorta. No aortic aneurysm. 3. Moderate right-sided pleural effusion. 4. Dependent atelectasis on the right. Mild scattered atelectasis bilaterally. Electronically signed by: Avril Russ M.D. 12/08/22 20:16 PM Liver Ultrasound 12/09/22 00:00 ULTRASOUND RIGHT UPPER QUADRANT ABDOMEN CLINICAL HISTORY: Elevated hepatic transaminases. COMPARISON STUDY: Abdominal CT dated 12/08/2022. TECHNIQUE: Real-time, grayscale, and color flow sonography of the right upper quadrant of the abdomen was performed. Images are reviewed in the transverse and longitudinal planes. FINDINGS: Liver: The liver is top normal in size and demonstrates heterogeneously increased echotexture indicating steatosis. There is no intrahepatic biliary ductal dilatation. The main portal vein is patent. Gallbladder: The gallbladder is distended but otherwise normal as imaged. No shadowing gallstones are identified. There is no gallbladder wall thickening or pericholecystic fluid. A sonographic Smith's sign is reportedly absent. The common bile duct measures up to 0.3 cm in diameter. Pancreas: Visualized portions of the pancreatic head are grossly unremarkable. The majority of the pancreas was not well visualized due to overlying bowel gas. Right kidney: Survey images of the right kidney demonstrate normal size and echotexture. There is no hydronephrosis. A 1.7 cm cyst is seen in the lower pole. Ascites: There is trace perihepatic ascites. Pleural spaces: A right pleural effusion is noted. IMPRESSION: 1. Hepatic steatosis. 2. Distended gallbladder. No shadowing gallstones are identified and there is no clear sonographic evidence of acute cholecystitis. Clinical and laboratory correlation will be required. If there is clinical concern for acalculus cholecystitis a hepatobiliary scan should be considered. 3. Trace perihepatic ascites. 4. Right pleural effusion. ACT 112: Negative or not required by law. Electronically signed by: Kimo Mora M.D. 12/09/2022 9:26 AM Venous Doppler Study 12/09/22 00:00 RIGHT LOWER EXTREMITY VENOUS DOPPLER CLINICAL HISTORY: right leg swelling, calf tenderness COMPARISON STUDY: No previous studies for comparison. TECHNIQUE: Sonography of the deep venous system of the right lower extremity was performed. Compression and augmentation were evaluated. FINDINGS: The right common femoral, superficial femoral and popliteal veins were compressible. There is minimal wall thickening of the mid right femoral vein. Augmentation was normal. Flow was shown within the deep calf vessels. IMPRESSION: 1. No evidence of acute deep venous thrombus within the right lower extremity. 2. Minimal wall thickening of the mid right femoral vein. This favors minimal chronic thrombus. ACT 112: Negative or not required by law. Electronically signed by: Kervin Bernard M.D. 12/09/2022 9:59 AM Bone Marrow Biopsy w/ CT 12/10/22 11:47 CT GUIDED BONE MARROW BIOPSY CLINICAL HISTORY: MDS; anemia PROCEDURE: Procedure and risks were explained. Informed consent was obtained. A final time out was completed. The patient was placed prone on the CT exam table. The left gluteal region was prepped and draped in sterile fashion. 1% buffered lidocaine was utilized for skin anesthesia. Utilizing CT guidance, an 11-gauge bone biopsy needle was advanced into the left iliac bone. Multiple aspirates and one core was obtained and given to the lab. The needle was removed and Band-Aid applied. The patient tolerated the procedure well. Vital signs will be monitored postprocedure. IMPRESSION: Bone marrow biopsy as above. Performed, dictated, and signed by Nas Erickson PA-C; to be co-signed by Dr. Kimo Mora. Electronically signed by: Kimo Mora M.D. 12/10/2022 3:12 PM PG Care Time/CCT Total # of Minutes Spent Total Time Spent with Patient: Total time spent is greater than 50% in coordination of care (as documented) at patient's floor/unit and/or counseling patient: Coding Level of Care Code 29596 IN/OBS CONSULT LVL 4,60M History Expanded Problem Focused Exam Expanded Problem Focused Medical Decision Making High Complexity Diagnoses Elevated LFTs R79.89 Iron deficiency E61.1 Pleural effusion on right J90 Colitis K52.9 S/p TAVR (transcatheter aortic valve replacement), bioprosthetic Z95.3 Red blood cell abnormality R71.8 DVT (deep venous thrombosis) I82.409 Lymphopenia D72.810 Time Spent (min) 60 Comment This note reflects assessment performed 12/10/2022
[2022-12-11 06:34] LABS: Basophils # (auto) 0.08 K/uL (0-0.2); Basophils % (auto) 1.4 %; Eosinophils % (auto) 1.8 %; Hemoglobin 12.7 g/dl (14.0-18.0); Immature Granulocytes # (auto) 0.03 K/uL (0.01-0.20); Immature Granulocytes % (auto) 0.5 %; Lymphocytes # (auto) 0.55 K/uL (1.2-3.4); Lymphocytes % (auto) 9.9 %; Mean Corpuscular Hgb Conc 32.6 g/dL (32.0-36.0); Mean Corpuscular Volume 98.2 fL (80.0-100.0); Mean Platelet Volume 11.7 fL (9.4-12.4); Monocytes # (auto) 0.39 K/uL (0.11-0.59); Neutrophils % (auto) 79.4 %; Nucleated RBC # (auto) 0.06 K/uL (0-0.12); Nucleated RBC % (auto) 1.1 %; Platelet Count 178 K/uL (130-400); RDW Coefficient of Variation 17.8 % (11.5-14.5); RDW Standard Deviation 63.7 fL (36.4-46.3); Red Blood Count 3.97 M/uL (4.70-6.10); White Blood Count 5.55 K/ul (4.8-10.8)
[2022-12-11 06:53] LABS: Albumin Globulin Ratio 1.3 (0.9-2); Albumin Level 3.6 gm/dl (3.4-5.0); BUN Creatinine Ratio 21.6 (10-20); Bilirubin,Total 3.1 mg/dl (0.2-1.0); Calcium 9.6 mg/dl (8.6-10.3); Creatinine Clr Calc Pharmacy 37.9 ml/min; Est GFR (African American) 44.7 ml/min; Est GFR (Non-African American) 38.6 ml/min; Globulin 2.7 gm/dl (2.5-4.0); Potassium 4.7 mmol/L (3.5-5.1); Total Protein 6.3 gm/dl (6.0-8.3)
[2022-12-11 07:00] LABS: INR 1.2 (0.9-1.1); Prothrombin Time 12.6 Seconds (9.0-12.0)
--- NOTE | 2022-12-11 07:02 | Hospitalist Progress Note ---
Date of Service December 11, 2022 Assessment & Plan (1) Elevated LFTs: (2) Atrial fibrillation with rapid ventricular response: (3) S/p TAVR (transcatheter aortic valve replacement), bioprosthetic: (4) CHF (congestive heart failure): (5) BPH with obstruction/lower urinary tract symptoms: (6) Depression with anxiety: Plan Yimi is a 76 year old male with history of Paroxysmal A Fib, CHF (HFpEF), S/p TAVR, HTN, trigeminal neuralgia, BPH, CAD, pHTN, gout, chronic anticoagulation, depression, anxiety, glaucoma, osteoarthritis, and lumbar spinal stenosis who presented from PCP office for concerns of jaundice. Patient was found to have elevated LFTs and Bilirubin levels and was admitted for evaluation. Elevated LFTs: - Elevation of LFTs and Bilirubin level on admission - Imaging: CXR, Chest CTA, CTAP, US Liver - Given patient's history including vague abdominal pain, anorexia, and notable weight loss, most drastic over the last month, combined with acute presentation of jaundice, elevated bilirubin, and elevated LFTs, clinical picture is concerning for malignancy at this time. * Imaging thus far not indicative of solid tissue mass * Imaging also not consistent with presentation of liver cirrhosis * Peripheral smear ordered for evaluation of liquid tumors * Upper GI malignancy (esophageal/stomach) remains on differential, would strongly support evaluation with EGD - GI Consult - Recommending MRCP and liver serologies * Contacted GI regarding concern for UGI malignancy - 12/10 elevated (600), Creatinine stable (1.6), AST/ALT/AlkPhos/TBili remain elevated --- Creatinine rising (1.7), Bilirubin/AST/ALT/Alk Phos remains elevated --- EGD/EUS scheduled today, pending results Macrocytic Anemia/Poikilocytosis - Evidenced on peripheral smear 12/09 - Could not exclude myelodysplasia - Consultation to Hematology - recommending bone marrow Bx, labs for haptoglobin and urine hemosiderin, folic acid supplementation, evaluate immunoglobulins, await EGD --- Bone marrow bx results pending Atrial fibrillation with rapid ventricular response: - Chronic paroxysmal AFib, with history of RVR - Now noted to be in NSR - Cardiology Consult: Recommending ongoing Metoprolol and anticoagulation (with conversion to Eliquis upon discharge, curently on Heparin) S/p TAVR (transcatheter aortic valve replacement), bioprosthetic: - Recently performed on November 19 - he reports no change in his shortness of breath since this CHF (congestive heart failure): - Patient currently euvolemic - Continu Lasix BPH with obstruction/lower urinary tract symptoms: - Continue tamsulosin Depression with anxiety: - Continue Bupropion 150 mg q24h and Paroxetine 40 mg QAM Code: Full VTE Prophylaxis - IV Heparin (Eliquis on discharge) held for procedure Diet - low fat, low Na, NPO after midnight Disposition - PCU/tele Admission and Anticipated Discharge Date Admission Date: December 08, 2022 Supervising Physician Co-Signing Physician Notes I personally examined the patient and verified all tobar points of history and exam, discussed case, and agree with decision making with Dr Yeung seen post EGD. No complaints. Has not really been eating much yet. Updated family. vitals noted nad breathing unlabored no accessory muscles good effort. Abdomen soft mildly distended he does have 2 or 3 left upper abdominal trigger pointssubxiphoid and below his rib cage weight loss, jaundice, elevated INR - Fortunately no malignancy identified. Did have sludge in his biliary treeit would be a little bit odd for this long of malaise and weight loss to purely be related to his bile duct without really chronic cholecystitis/etc.but at this point it would be wonderful if that is all that was going on. Trial of dietif he tolerates it beautifully, then clearly that would be the answer. If he shows slow but steady progress, with close follow-up we could be able to prove with hindsight that that was the culprit. At the same time, while the bone marrow was pending, he has had a very extensive malignancy work-up (CTs, scopes, marrow) and if the marrow does not show anything malignant, then we may need to consider other differentials if his food intolerance does not improve. His trigger points are somewhat underwhelming, but given that they are presentI would definitely consider a trial of abdominal wall trigger point injection (given his duration of symptoms that may require several), and is also possible something odd like a postviral gastroparesis could be at play. For now I would see how he does eatingif he does great, the above differentials would be irrelevant. If he does poorly, would abdominal wall trigger point injections and gastric emptying study. If its somewhat in betweenwould follow progress closely. A-fibrate now controlled, chronic diastolic chf compensated. heparin on hold for proceduresProbably can resume tomorrow otherwise as above, await bone marrow results Subjective 12/11: Patient resting comfortably in bed upon arrival. Patient without pain or discomfort, he is not experiencing nausea or emesis. No additional meaningful HPI. Patient expressed awareness and understanding of upcoming procedures. Physical Exam Physical Exam: Gen: NAD, alert, interactive, mild jaundice & scleral icterus HEENT: NCAT, supple, no LAD, no JVD Resp:Non-labored, no wheezing/rhonchi/rales, lung sounds slightly diminished on right CV:RRR, normal S1/S2, systolic murmur present at RUSB/LUSB Abd: Soft, non-distended, no TTP, normoactive bowels, no masses, Smith sign negative Extr: 2+ dp bilaterally, no edema Skin: No rashes lesions or erythema Results & Data Results & Data Vital Signs (Past 12 Hours) Vital Signs Temp Pulse Pulse Resp BP Pulse Ox O2 Del Method 12/11/22 04:01 36.6 C 88 18 112/79 93 Nasal Cannula 12/10/22 21:59 90 12/10/22 23:26 36.5 C 99 H 18 118/78 100 Nasal Cannula 12/10/22 21:41 Nasal Cannula 12/10/22 19:24 36.6 C 81 18 103/68 100 Nasal Cannula O2 Flow Rate 12/11/22 04:01 3 12/10/22 21:59 12/10/22 23:26 3 12/10/22 21:41 4 12/10/22 19:24 3 Resident Activity Tracking Resident Involvement: Resident Care Provided Care Provided: Adult Hospital Medicine
[2022-12-11 07:46] LABS: Immunoglobulin A 306.8 mg/dl (70-400); Immunoglobulin G 1002.3 mg/dl (635-1741); Immunoglobulin M 42.5 mg/dl (45-281)
[2022-12-11] MEDS: PARoxetine HCL 20 MG TAB PO SCH (07:46)
[2022-12-11] MEDS: buPROPion XL 150 MG TABCR PO SCH (07:46)
[2022-12-11] MEDS: METOPROLOL TARTRATE 25 MG TAB PO SCH ×2 (07:47→20:34)
[2022-12-11] MEDS: ASPIRIN 81 MG ECTAB PO SCH (07:47)
[2022-12-11] MEDS: LORATADINE 10 MG TAB PO SCH (07:47)
[2022-12-11] MEDS: PANTOprazole 40 MG TAB PO SCH (07:47)
[2022-12-11] MEDS: POTASSIUM CHLORIDE CRTAB 20 MEQ TABCR PO SCH (07:47)
--- NOTE | 2022-12-11 08:59 | Surgery Progress Note ---
Date of Service December 11, 2022 Assessment & Plan (1) Elevated LFTs: Plan: He remains without abdominal pain and no white blood cell count Plan for EUS, possible ERCP today with GI, we will follow-up these results If the patient has no obstructive mass or another sign of malignancy sludge is found to be the cause of his elevated LFTs can consider cholecystectomy down the road once he is recovered from his TAVR 3 weeks ago No plans for surgery this admission, surgery will sign off at this time please call with any questions or concerns Admission and Anticipated Discharge Date Admission Date: December 08, 2022 Subjective Patient seen and examined. Denies any abdominal pain. No acute events overnight. Plan for EUS possible ERCP today with GI. Review of Systems Constitutional: no fever and no chills Gastrointestinal: no abdominal pain, no nausea and no vomiting Physical Exam Constitutional: WD/WN, vitals as above Gastrointestinal (Abdomen): Inspection/Auscultation: abdomen normal to inspection; abdomen not distended Percussion/Palpation: abdomen soft; abdomen nontender, no guarding and abdomen not rigid Results & Data Vital Signs (Past 12 Hours) Vital Signs Temp Pulse Pulse Resp BP Pulse Ox O2 Del Method 12/11/22 08:36 74 12/11/22 08:00 36.5 C 84 16 121/87 94 Nasal Cannula 12/11/22 04:01 36.6 C 88 18 112/79 93 Nasal Cannula 12/10/22 21:59 90 12/10/22 23:26 36.5 C 99 H 18 118/78 100 Nasal Cannula 12/10/22 21:41 Nasal Cannula O2 Flow Rate 12/11/22 08:36 12/11/22 08:00 3 12/11/22 04:01 3 12/10/22 21:59 12/10/22 23:26 3 12/10/22 21:41 4 PG Care Time/CCT Total # of Minutes Spent Total Time Spent with Patient: Total time spent is greater than 50% in coordination of care (as documented) at patient's floor/unit and/or counseling patient: Coding Level of Care Code 07606 SUB INP/OBS CARE 1/25MIN Diagnoses Elevated LFTs R79.89
--- NOTE | 2022-12-11 12:25 | History & Physical Bridge Note ---
Date of Service December 11, 2022 History & Physical Bridge Note I have examined the patient, reviewed the History & Physical and in the interval since the performance of the History & Physical I have noted the following changes of clinical significance: no changes noted EUS +/- ERCP
--- NOTE | 2022-12-11 12:37 | Anesthesiology Consultation ---
Date of Service December 11, 2022 Assessment & Plan (1) Encounter for pre-operative examination: Consults Requested medical & cardiac Pulmonary History Surgery Operation Date: 12/11/22 13:10 Proposed Procedures p Endoscopic Ultrasonography Upper - Tracey Mcconnell MD Height/Weight Height: 5 ft 9 in Weight: 81.9 kg Allergies Allergy/AdvReac Type Severity Reaction Status Date / Time baclofen Allergy Unknown PT & PT'S Verified 12/08/22 20:11 SPOUSE DENIES ANY ALLERGIES OR SENSATIVITY TO MED cyclobenzaprine Allergy Unknown PT & PT'S Verified 12/08/22 20:11 [From Flexeril] SPOUSE DENIES ANY ALLERGIES OR SENSATIVITY TO MED doxazosin Allergy Unknown PT & PT'S Verified 12/08/22 20:11 SPOUSE DENIES ANY ALLERGIES OR SENSATIVITY TO MED doxycycline Allergy Unknown PT & PT'S Verified 12/08/22 20:11 SPOUSE DENIES ANY ALLERGIES OR SENSATIVITY TO MED duloxetine Allergy Unknown PT & PT'S Verified 12/08/22 20:11 SPOUSE DENIES ANY ALLERGIES OR SENSATIVITY TO MED gabapentin Allergy Unknown PT & PT'S Verified 12/08/22 20:11 SPOUSE DENIES ANY ALLERGIES OR SENSATIVITY TO MED lisinopril Allergy Unknown PT & PT'S Verified 12/08/22 20:11 SPOUSE DENIES ANY ALLERGIES OR SENSATIVITY TO MED naproxen Allergy Unknown PT & PT'S Verified 12/08/22 20:11 SPOUSE DENIES ANY ALLERGIES OR SENSATIVITY TO MED nortriptyline [From Pamelor] Allergy Unknown PT & PT'S Verified 12/08/22 20:11 SPOUSE DENIES ANY ALLERGIES OR SENSATIVITY TO MED oxcarbazepine Allergy Unknown PT & PT'S Verified 12/08/22 20:11 SPOUSE DENIES ANY ALLERGIES OR SENSATIVITY TO MED Penicillins Allergy Unknown PT & PT'S Verified 12/08/22 20:11 SPOUSE DENIES ANY ALLERGIES OR SENSATIVITY TO MED Medications Home Medications Medication Instructions Recorded Confirmed Last Taken acetaminophen 500 mg tablet 1,000 mg PO TID PRN fever or pain 11/18/18 12/08/22 09/09/21 #90 tabs aspirin 81 mg tablet,delayed 81 mg PO DAILY #90 tabs 06/09/22 12/08/22 12/07/22 release metoprolol succinate 25 mg 12.5 mg PO QAM #30 tabs 08/22/22 12/08/22 12/07/22 tablet,extended release 24 hr Wheelchair (Manual) #1 ea 09/17/22 12/08/22 Unknown Oxygen Home #1 ea 10/12/22 12/08/22 Unknown atorvastatin 80 mg tablet 80 mg PO HS #90 tabs 11/05/22 12/08/22 12/07/22 bupropion HCl 150 mg 24 hr tablet, 150 mg PO QAM #90 tabs 11/05/22 12/08/22 12/07/22 extended release (Wellbutrin XL) fluticasone propionate 50 2 spray intranasal DAILY #48 grams 11/05/22 12/08/22 12/07/22 mcg/actuation nasal spray,suspension (Flonase Allergy Relief) pantoprazole 40 mg tablet,delayed 40 mg PO DAILY #90 tabs 11/05/22 12/08/22 12/07/22 release paroxetine HCl 40 mg tablet 40 mg PO QAM #90 tabs 11/05/22 12/08/22 12/07/22 potassium chloride 20 mEq 20 meq PO QAM #90 tabs 11/05/22 12/08/22 12/07/22 tablet,extended release tamsulosin 0.4 mg capsule 0.4 mg PO HS #90 caps 11/05/22 12/08/22 12/07/22 furosemide 40 mg tablet (Lasix) 40 mg PO DAILY 11/09/22 12/08/22 12/07/22 loratadine 10 mg tablet 10 mg PO DAILY 11/09/22 12/08/22 12/07/22 Active Medications Generic Name Dose Route Start Last Admin Trade Name Mary PRN Reason Stop Dose Admin Aspirin 81 mg 12/09/22 09:00 12/11/22 07:47 Aspirin 81 Mg Ectab PO 01/08/23 08:59 81 mg DAILY CHRISTIANO Administration Atorvastatin Calcium 80 mg 12/08/22 22:17 12/10/22 21:27 Atorvastatin 40 Mg Tab PO 01/07/23 22:16 80 mg HS CHRISTIANO Administration Bupropion HCl 150 mg 12/09/22 09:00 12/11/22 07:46 Bupropion Xl 150 Mg Tabcr PO 01/08/23 08:59 150 mg QAM CHRISTIANO Administration Heparin Sodium/Dextrose 25,000 units in 500 mls @ 0 mls/hr 12/08/22 23:45 12/09/22 20:41 Heparin Sodium/Dextrose IV 01/07/23 23:44 0 units/hr .Q0M CHRISTIANO 0 mls/hr Titration Protocol 0 UNITS/HR Loratadine 10 mg 12/09/22 09:00 12/11/22 07:47 Loratadine 10 Mg Tab PO 01/08/23 08:59 10 mg DAILY CHRISTIANO Administration Metoprolol Tartrate 25 mg 12/08/22 23:40 12/11/22 07:47 Metoprolol Tartrate 25 Mg Tab PO 01/07/23 23:39 25 mg BID CHRISTIANO Administration Pantoprazole Sodium 40 mg 12/09/22 09:00 12/11/22 07:47 Pantoprazole 40 Mg Tab PO 01/08/23 08:59 40 mg DAILY CHRISTIANO Administration Paroxetine HCl 40 mg 12/09/22 09:00 12/11/22 07:46 Paroxetine Hcl 20 Mg Tab PO 01/08/23 08:59 40 mg QAM CHRISTIANO Administration Potassium Chloride 20 meq 12/09/22 09:00 12/11/22 07:47 Potassium Chloride Crtab 20 Meq Tabcr PO 01/08/23 08:59 20 meq QAM CHRISTIANO Administration Tamsulosin HCl 0.4 mg 12/08/22 22:17 12/10/22 21:27 Tamsulosin Hcl 0.4 Mg Cap PO 01/07/23 22:16 0.4 mg HS CHRISTIANO Administration NPO Date Last Intake of Fluids: 12/11/22 Time Last Intake of Fluids: 08:00 Last Intake of Fluids Comment: sip with meds Date Last Intake of Solids: 12/10/22 Time Last Intake of Solids: 22:30 Past Medical History Medical History Acute heart failure with preserved ejection fraction Aneurysm, thoracic aortic pt unaware of size, follows with Dr. Paige Aortic atherosclerosis Aortic stenosis, severe BPH with obstruction/lower urinary tract symptoms CAD (coronary artery disease) Cervical disc disease Chronic sinusitis Cognitive disorder Coronary artery calcification Depression with anxiety Dyslipidemia Glaucoma Hearing loss Hepatic steatosis History of central retinal vein occlusion Hypertension Iron deficiency Lower GI bleed no current issues Lumbar spinal stenosis Mitral regurgitation MVP (mitral valve prolapse) Osteoarthritis PAC (premature atrial contraction) PAF (paroxysmal atrial fibrillation) Sleep apnea Trigeminal neuralgia received radiation for this, having numbess/tingling to right side of face since this Vitamin D deficiency Past Family History Family History Mother No pertinent family history Other Hypertension Denies family history of Ovarian cancer Prostate cancer Diabetes Myocardial infarction Breast cancer Colorectal cancer Cancer Past Surgical History Surgical History H/O cataract extraction (2013) H/O colonoscopy History of cochlear implant (01/12/12) BILATERAL History of pilonidal cyst removed History of umbilical hernia repair S/P foot surgery, right (12/2010) removal of heel spur S/P laser trabeculoplasty of eye (10/2014) b/l S/P nasal endoscopy with nasal polypectomy (2011) S/P rotator cuff repair b/l shoulders S/p TAVR (transcatheter aortic valve replacement), 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) Social History Smoking Status: Never smoker Do You Dip or Chew Tobacco: No Hx Alcohol Use: No Hx Substance Use: No substance use type: does not use Physical Exam Vital Signs Last Vital Signs Temp 36.5 C 12/11/22 12:24 Pulse 68 12/11/22 12:24 Resp 20 12/11/22 12:24 BP 121/87 12/11/22 08:00 Pulse Ox 94 12/11/22 12:24 O2 Del Method Nasal Cannula 12/11/22 12:24 O2 Flow Rate 2 12/11/22 12:24 Testing Laboratory Results 12/11/22 05:43 12/11/22 05:43 PT 12.6 Seconds (9.0-12.0) H 12/11/22 05:43 INR 1.2 (0.9-1.1) H 12/11/22 05:43 APTT 62.4 Seconds (21.0-31.0) H* 12/09/22 19:13 Urine Color Yellow 12/08/22 Unknown Urine Appearance Clear (Clear) 12/08/22 Unknown Urine pH 5.0 (4.5-7.5) 12/08/22 Unknown Ur Specific [place] 1.022 (1.000-1.030) 12/08/22 Unknown Urine Protein Negative (Negative) 12/08/22 Unknown Urine Glucose (UA) Negative (Negative) 12/08/22 Unknown Urine Ketones Negative (Negative) 12/08/22 Unknown Urine Nitrite Negative (Negative) 12/08/22 Unknown Ur Leukocyte Esterase Negative (Negative) 12/08/22 Unknown Electrocardiogram Date: 12/09/22 Sinus rhythm with 1st degree A-V block Premature atrial complexes Right bundle branch block T wave abnormality, consider inferolateral ischemia Abnormal ECG When compared with ECG of 08-DEC-2022 18:05, (unconfirmed) Right bundle branch block is now Present Confirmed by Toñito Paige ([id number]) on 12/09/2022 3:11:17 PM Chest X-Ray Date: 12/08/22 IMPRESSION: 1. Moderate cardiomegaly. No evidence for pulmonary edema. 2. Small right pleural effusion, decreased in size since prior exam.
[2022-12-11] MEDS ORDERED: fentaNYL citrate PF 100 MCG/2 ML VIAL IV PRN (12:44)
[2022-12-11] MEDS ORDERED: ATROPINE SULFATE 0.1 MG/ML 10ML SYR IV PRN (12:44)
[2022-12-11] MEDS ORDERED: ONDANSETRON INJ 2 MG/ML 2 ML VIAL IV PRN (12:44)
[2022-12-11] MEDS ORDERED: ePHEDrine sulfate 50 MG/ML AMP IV PRN (12:44)
[2022-12-11] MEDS ORDERED: PROPOFOL IV EMULSION 10 MG/ML 20 ML VIAL IV ONE (12:58)
[2022-12-11] MEDS ORDERED: GLYCOPYRROLATE 0.2 MG/ML VIAL ONE (12:58)
[2022-12-11] MEDS ORDERED: LIDOCAINE 2% 2 ML VIAL/AMP(20MG/ML) INFIL ONE (12:58)
--- NOTE | 2022-12-11 13:39 | Operative Report ---
Post Operative Report Pre & Post Diagnosis Operation Date: 12/11/22 13:10 Pre-Op Diagnosis: jaundice, biliary sludge Post-Op Diagnosis: biliary sludge I identified the patient and participated in the time-out.: Yes Procedure Operation Date: 12/11/22 13:10 Actual Procedures p EGD Biopsy Cytology - Tracey Mcconnell MD p Endoscopic Ultrasonography Upper - Tracey Mcconnell MD s Endoscopic Retrograde Cholangiopancreato - Tracey Mcconnell MD Surgeon Tracey Mcconnell MD Manager Telemetry None Estimated Blood Loss 0 Findings See Below (CBD and GB sludge, CBD stent placed.) Specimens GEJ biopsy Description of Procedure EUS/ERCP I attest to the content of the Intraoperative Record and any orders documented therein. Any exceptions are noted below.
--- NOTE | 2022-12-11 13:53 | GI REPORT ---
Patient Name: Yimi Snyder Procedure Date: 12/11/2022 12:43 PM Date of : 1945 Admit Type: Inpatient Age: 76 Gender: Male Attending MD: Tracey Mcconnell MD, Procedure: Upper GI endoscopy Providers: Tracey Mcconnell MD Referring MD: Kevin Butler Indications: Weight loss Medicines: Propofol per Anesthesia Complications: No immediate complications. Estimated Blood Loss: Estimated blood loss: none. Procedure: Pre-Anesthesia Assessment: - Prior to the procedure, a History and Physical was performed, and patient medications, allergies and sensitivities were reviewed. The patient's tolerance of previous anesthesia was reviewed. - The risks and benefits of the procedure and the sedation options and risks were discussed with the patient. All questions were answered and informed consent was obtained. - Patient identification and proposed procedure were verified prior to the procedure by the physician and the nurse. The procedure was verified in the procedure room. - Pre-procedure physical examination revealed no contraindications to sedation. After obtaining informed consent, the endoscope was passed under direct vision. Throughout the procedure, the patient's blood pressure, pulse, and oxygen saturations were monitored continuously. The Endoscope was introduced through the mouth, and advanced to the second part of duodenum. The upper GI endoscopy was accomplished without difficulty. The patient tolerated the procedure well. Findings: A small hiatal hernia was present. Esophagitis with no bleeding was found in the lower third of the esophagus. Biopsies were taken with a cold forceps for histology. Verification of patient identification for the specimen was done by the physician and nurse using the patient's name and date. The entire examined stomach was normal. The duodenal bulb and second portion of the duodenum were normal. Impression: - Small hiatal hernia. - Reflux esophagitis. Biopsied. - Normal stomach. - Normal duodenal bulb and second portion of the duodenum. Recommendation: - Await pathology results. - Perform an upper endoscopic ultrasound (UEUS) today. Tracey Mcconnell MD 12/11/2022 1:52:16 PM This report has been signed electronically. Note Initiated On: 12/11/2022 12:43 PM Number of Addenda: 0 I attest to the content of the Intraoperative Record and orders documented therein, exceptions below {[id number]}
--- NOTE | 2022-12-11 13:57 | GI REPORT ---
Patient Name: Yimi Snyder Procedure Date: 12/11/2022 12:43 PM Date of : 1945 Admit Type: Inpatient Age: 76 Gender: Male Attending MD: Tracey Mcconnell MD, Procedure: Upper EUS Providers: Tracey Mcconnell MD Referring MD: Kevin Butler Indications: Elevated liver enzymes Medicines: Propofol per Anesthesia Complications: No immediate complications. Estimated Blood Loss: Estimated blood loss: none. Procedure: Pre-Anesthesia Assessment: - Prior to the procedure, a History and Physical was performed, and patient medications, allergies and sensitivities were reviewed. The patient's tolerance of previous anesthesia was reviewed. - The risks and benefits of the procedure and the sedation options and risks were discussed with the patient. All questions were answered and informed consent was obtained. - Patient identification and proposed procedure were verified prior to the procedure by the physician and the nurse. The procedure was verified in the procedure room. - Pre-procedure physical examination revealed no contraindications to sedation. After obtaining informed consent, the endoscope was passed under direct vision. Throughout the procedure, the patient's blood pressure, pulse, and oxygen saturations were monitored continuously. The scope was introduced through the mouth, and advanced to the second part of duodenum. The upper EUS was accomplished without difficulty. The patient tolerated the procedure well. Findings: ENDOSONOGRAPHIC FINDING: : There was no sign of significant endosonographic abnormality in the ampulla. No masses were identified. A small amount of hyperechoic material consistent with sludge was visualized endosonographically in the common bile duct. Duct diameter measured 5 mm. Extensive hyperechoic material consistent with sludge was visualized endosonographically in the gallbladder. There was no sign of significant endosonographic abnormality in the visualized portion of the liver. Homogeneous parenchyma was identified. There was no sign of significant endosonographic abnormality in the entire pancreas. The pancreatic duct measured up to 2 mm in diameter. There was no sign of significant endosonographic abnormality in the visualized portion of the left adrenal gland. Impression: - There was no sign of significant pathology in the ampulla. - Hyperechoic material consistent with sludge was visualized endosonographically in the common bile duct. - Hyperechoic material consistent with sludge was visualized endosonographically in the gallbladder. - There was no evidence of significant pathology in the visualized portion of the liver. - There was no sign of significant pathology in the entire pancreas. - Endosonographic images of the left adrenal gland were unremarkable. Recommendation: - Perform an ERCP today. Tracey Mcconnell MD 12/11/2022 1:56:48 PM This report has been signed electronically. Note Initiated On: 12/11/2022 12:43 PM Number of Addenda: 0 I attest to the content of the Intraoperative Record and orders documented therein, exceptions below {[id number]}
--- NOTE | 2022-12-11 14:05 | GI REPORT ---
Patient Name: Yimi Snyder Procedure Date: 12/11/2022 12:44 PM Date of : 1945 Admit Type: Inpatient Age: 76 Gender: Male Attending MD: Tracey Mcconnell MD, Procedure: ERCP Providers: Tracey Mcconnell MD Referring MD: Kevin Butler Indications: Biliary sludge Medicines: Propofol per Anesthesia Complications: No immediate complications. Estimated Blood Loss: Estimated blood loss: none. Procedure: Pre-Anesthesia Assessment: - Prior to the procedure, a History and Physical was performed, and patient medications, allergies and sensitivities were reviewed. The patient's tolerance of previous anesthesia was reviewed. - The risks and benefits of the procedure and the sedation options and risks were discussed with the patient. All questions were answered and informed consent was obtained. - Patient identification and proposed procedure were verified prior to the procedure by the physician and the nurse. The procedure was verified in the procedure room. - Pre-procedure physical examination revealed no contraindications to sedation. After obtaining informed consent, the scope was passed under direct vision. Throughout the procedure, the patient's blood pressure, pulse, and oxygen saturations were monitored continuously. The Duodenoscope was introduced through the mouth, and advanced to the duodenum and used to inject contrast into the bile duct. The ERCP was accomplished without difficulty. The patient tolerated the procedure well. Findings: The waitress film was normal. The esophagus was successfully intubated under direct vision. The scope was advanced to a normal major papilla in the descending duodenum without detailed examination of the pharynx, larynx and associated structures, and upper GI tract. The upper GI tract was grossly normal. A 0.035 inch straight standard wire was passed into the biliary tree. The short-nosed traction sphincterotome was passed over the guidewire and the bile duct was then deeply cannulated. Contrast was injected. I personally interpreted the bile duct images. Ductal flow of contrast was adequate. Image quality was adequate. Contrast extended to the main bile duct. Opacification of the entire biliary tree was successful. The maximum diameter of the ducts was 7 mm. Biliary sphincterotomy was made with a monofilament traction (standard) sphincterotome using ERBE electrocautery. There was no post-sphincterotomy bleeding. The biliary tree was swept with a 12 mm balloon starting at the bifurcation. Sludge was swept from the duct. One 7 Fr by 9 cm plastic biliary stent with a single external flap and a single internal flap was placed into the common bile duct. Bile flowed through the stent. The stent was in good position. Impression: - A biliary sphincterotomy was performed. - The biliary tree was swept and sludge was found. - One plastic biliary stent was placed into the common bile duct. Recommendation: - [facility]. - Repeat ERCP in 3 months to remove stent. - Surgery follow up for cholecystectomy. - ABx for 5 days. - Hold off on restarting Heparin drip for 3 days. - Monitor LFTs. - Recall GI if needed. Tracey Mcconnell MD 12/11/2022 2:05:06 PM This report has been signed electronically. Note Initiated On: 12/11/2022 12:44 PM Number of Addenda: 0 I attest to the content of the Intraoperative Record and orders documented therein, exceptions below {[id number]}
--- NOTE | 2022-12-11 14:26 | Anesthesiology Progress Note ---
Date of Service December 11, 2022 Anesthesia Post Procedure Vital Signs Vital Signs: Temp Pulse Pulse Pulse Pulse Resp BP 12/11/22 14:20 72 20 105/76 12/11/22 14:10 73 16 100/72 12/11/22 14:00 74 18 102/72 12/11/22 13:48 36 C L 72 18 112/73 12/11/22 12:00 36.3 C L 68 18 89/61 L 12/11/22 12:24 36.5 C 68 20 12/11/22 10:51 12/11/22 08:36 74 12/11/22 08:00 36.5 C 84 16 121/87 12/11/22 04:01 36.6 C 88 18 112/79 12/10/22 21:59 90 12/10/22 23:26 36.5 C 99 H 18 118/78 12/10/22 21:41 12/10/22 19:24 36.6 C 81 18 103/68 12/10/22 17:04 36.3 C L 85 16 123/76 12/10/22 18:03 36.6 C 85 16 123/76 12/10/22 16:34 36.3 C L 79 16 110/80 12/10/22 16:04 36.4 C L 81 16 111/82 12/10/22 15:34 36.3 C L 77 16 100/78 12/10/22 15:42 78 12/10/22 15:04 36.4 C L 79 16 99/67 L 12/10/22 14:49 36.4 C L 80 16 104/70 Pulse Ox O2 Del Method O2 Flow Rate 12/11/22 14:20 100 Oxymask 3 12/11/22 14:10 99 Oxymask 3 12/11/22 14:00 100 Oxymask 5 12/11/22 13:48 99 Oxymask 10 12/11/22 12:00 98 Nasal Cannula 2 12/11/22 12:24 94 Nasal Cannula 2 12/11/22 10:51 Nasal Cannula 3 12/11/22 08:36 12/11/22 08:00 94 Nasal Cannula 3 12/11/22 04:01 93 Nasal Cannula 3 12/10/22 21:59 12/10/22 23:26 100 Nasal Cannula 3 12/10/22 21:41 Nasal Cannula 4 12/10/22 19:24 100 Nasal Cannula 3 12/10/22 17:04 100 Nasal Cannula 3 12/10/22 18:03 100 Nasal Cannula 3 12/10/22 16:34 100 Nasal Cannula 3 12/10/22 16:04 100 Room Air 4 12/10/22 15:34 98 Nasal Cannula 4 12/10/22 15:42 12/10/22 15:04 100 Nasal Cannula 4 12/10/22 14:49 100 Nasal Cannula 4 Transfer of Care Handoff Completed per policy Notes Mental Status: alert / awake / arousable and participated in evaluation Patient Amnestic to Procedure: Yes Nausea / Vomiting: adequately controlled Pain: adequately controlled Airway Patency, RR, SpO2: stable & adequate BP & HR: stable & adequate Hydration State: stable & adequate Anesthetic Complications: no major complications apparent and Pt Satisfied with anesthetic care
--- NOTE | 2022-12-11 14:40 | Fluoroscopy Report ---
INTRAOPERATIVE RADIOGRAPHS CLINICAL HISTORY: ERCP. Fluoro time: 43 seconds Ka,r: 28.68 mGy FINDINGS: 6 spot fluoroscopic views of the right abdomen are correlated with abdominal CT dated 2022. The initial image shows a catheter in the common bile duct. Contrast injected into the duct marely ws no intra or extrahepatic biliary ductal dilatation. A balloon sweep of the duct was performed. The final image shows a common bile duct stent in place. IMPRESSION: Intraoperative ERCP images as above. See operative report for detailed findings. Electronically signed by: Kimo Mora M.D. 12/11/2022 2:39 PM
--- NOTE | 2022-12-11 20:19 | Billing Data ---
Date of Service December 11, 2022 Coding Level of Care Code 98977 SUB INP/OBS CARE MIN
[2022-12-11] MEDS: TAMSULOSIN HCL 0.4 MG CAP PO SCH (20:34)
[2022-12-11] MEDS: CIPROFLOXACIN 500 MG TAB PO SCH (20:34)
[2022-12-11] MEDS: ATORVASTATIN 40 MG TAB PO SCH (20:34)
[2022-12-12 06:16] LABS: Basophils # (auto) 0.05 K/uL (0-0.2); Basophils % (auto) 0.9 %; Eosinophils # (auto) 0.09 K/uL (0-0.50); Eosinophils % (auto) 1.6 %; Hematocrit (blood only) 35.2 % (42.0-52.0); Hemoglobin 11.4 g/dl (14.0-18.0); Immature Granulocytes # (auto) 0.02 K/uL (0.01-0.20); Immature Granulocytes % (auto) 0.3 %; Lymphocytes # (auto) 0.53 K/uL (1.2-3.4); Lymphocytes % (auto) 9.2 %; Mean Corpuscular Hgb Conc 32.4 g/dL (32.0-36.0); Mean Corpuscular Volume 98.9 fL (80.0-100.0); Mean Platelet Volume 11.7 fL (9.4-12.4); Monocytes % (auto) 6.9 %; Neutrophils # (auto) 4.69 K/uL (1.40-6.50); Neutrophils % (auto) 81.1 %; Nucleated RBC # (auto) 0.04 K/uL (0-0.12); Nucleated RBC % (auto) 0.7 %; Platelet Count 146 K/uL (130-400); RDW Coefficient of Variation 18.1 % (11.5-14.5); RDW Standard Deviation 64.5 fL (36.4-46.3); Red Blood Count 3.56 M/uL (4.70-6.10); White Blood Count 5.78 K/ul (4.8-10.8)
[2022-12-12 06:30] LABS: Albumin Globulin Ratio 1.4 (0.9-2); Albumin Level 3.4 gm/dl (3.4-5.0); BUN Creatinine Ratio 21.9 (10-20); Calcium 9.3 mg/dl (8.6-10.3); Creatinine Clr Calc Pharmacy 41.4 ml/min; Est GFR (African American) 45.4 ml/min; Est GFR (Non-African American) 39.1 ml/min; Globulin 2.5 gm/dl (2.5-4.0); Potassium 4.4 mmol/L (3.5-5.1); Total Protein 5.9 gm/dl (6.0-8.3)
--- NOTE | 2022-12-12 07:47 | Hospitalist Progress Note ---
Date of Service December 12, 2022 Assessment & Plan (1) Elevated LFTs: (2) Atrial fibrillation with rapid ventricular response: (3) S/p TAVR (transcatheter aortic valve replacement), bioprosthetic: (4) CHF (congestive heart failure): (5) BPH with obstruction/lower urinary tract symptoms: (6) Depression with anxiety: Plan Yimi is a 76 year old male with history of Paroxysmal A Fib, CHF (HFpEF), S/p TAVR, HTN, trigeminal neuralgia, BPH, CAD, pHTN, gout, chronic anticoagulation, depression, anxiety, glaucoma, osteoarthritis, and lumbar spinal stenosis who presented from PCP office for concerns of jaundice. Patient was found to have elevated LFTs and Bilirubin levels and was admitted for evaluation. Possible Acute exacerbation of chronic Right heart failure with Left HFpEF -s/p TAVR in october. Echo in october with severe right ventricle dysfunction -Possibility of persistent right heart dysfunction contributing to elevated LFT and poor appetite -Extensive h/o occupational airway exposure of chemical and dust but CTA from th is admission with no PF findings. --- Ordered BNP and trop. BNP 12/12 elevated to 1613, Troponin elevated to 84 (trending), --- Check Echocardiogram --- continue lasix 40mgs daily. Await cardio input on need for IV diuresis Atrial fibrillation with rapid ventricular response: - Chronic paroxysmal AFib, with history of RVR - Now noted to be in NSR - Cardiology Consult: Metoprolol and anticoagulation -IV heparin drip Acute on Chronic respiratory failure -On chronic Home O2 -Was needing 4L on admission. Now on 1L Elevated LFTs: - Elevation of LFTs and Bilirubin level on admission - Imaging: CXR, Chest CTA, CTAP, US Liver - No sign of malignancy - GI Consult * EGD/EUS negative * Biliary stent placed d/t evidence of biliary sludge * Recommending removal of stent in 3 months - Creatinine remains elevated (1.69), - Bilirubin/AST/ALT/Alk Phos also elevated (but slightly downtrending), --patient with improved appetite this AM Macrocytic Anemia/Poikilocytosis - Evidenced on peripheral smear 12/09 - Could not exclude myelodysplasia - Consultation to Hematology - recommending bone marrow Bx, labs for haptoglobin and urine hemosiderin, folic acid supplementation, evaluate immunoglobulins, await EGD --- Bone marrow bx results pending S/p TAVR (transcatheter aortic valve replacement), bioprosthetic: - Recently performed on November 19 - he reports no change in his shortness of breath since this BPH with obstruction/lower urinary tract symptoms: - Continue tamsulosin Code: Full VTE Prophylaxis - IV Heparin hold for 3 days following biliary stenting, restart 12/14 Diet - low fat, low Na, Disposition - PCU/tele Admission and Anticipated Discharge Date Admission Date: December 08, 2022 Supervising Physician Co-Signing Physician Notes Resident Physician Supervision Note: I independently interviewed and examined the patient and verified the tobar history and physical, reviewed labs and image studies and agree with resident findings and care plan. Subjective 12/12: Yimi was enjoying breakfast in bedside chair upon arrival. He continues to deny any pain or discomfort, he notes he has an appetite this morning. Patient denies any abdominal pain, chest pain or pleuritic pain and notes his dyspnea is at baseline. Physical Exam Physical Exam: Gen: NAD, alert, interactive, mild jaundice & scleral icterus (improved) HEENT: NCAT, supple, no JVD Resp:Non-labored, no wheezing/rhonchi/rales, lung sounds slightly diminished on right CV:RRR, normal S1/S2, systolic murmur present at RUSB/LUSB Abd: Soft, non-distended, no TTP, normoactive bowels, no masses Extr: 2+ dp bilaterally, no edema Skin: No rashes lesions or erythema Results & Data Results & Data Vital Signs (Past 12 Hours) Vital Signs Temp Pulse Pulse Resp BP Pulse Ox O2 Del Method 12/12/22 03:55 36.6 C 72 16 91/65 L 92 Nasal Cannula 12/11/22 20:30 Nasal Cannula 12/11/22 23:30 36.5 C 84 16 92/57 L 95 Nasal Cannula 12/11/22 22:01 79 12/11/22 20:31 82 105/78 12/11/22 20:17 36.6 C 84 18 94/60 L 95 Nasal Cannula O2 Flow Rate 12/12/22 03:55 1 12/11/22 20:30 1 12/11/22 23:30 1 12/11/22 22:01 12/11/22 20:31 12/11/22 20:17 1 Resident Activity Tracking Resident Involvement: Resident Care Provided Care Provided: Adult Hospital Medicine
[2022-12-12] MEDS: METOPROLOL TARTRATE 25 MG TAB PO SCH ×2 (08:24→20:57)
[2022-12-12] MEDS: CIPROFLOXACIN 500 MG TAB PO SCH ×2 (08:25→20:56)
[2022-12-12] MEDS: POTASSIUM CHLORIDE CRTAB 20 MEQ TABCR PO SCH (08:25)
[2022-12-12] MEDS: PANTOprazole 40 MG TAB PO SCH (08:25)
[2022-12-12] MEDS: buPROPion XL 150 MG TABCR PO SCH (08:26)
[2022-12-12] MEDS: PARoxetine HCL 20 MG TAB PO SCH (08:26)
[2022-12-12] MEDS: ASPIRIN 81 MG ECTAB PO SCH (08:26)
[2022-12-12] MEDS: LORATADINE 10 MG TAB PO SCH (08:27)
--- NOTE | 2022-12-12 09:01 | Electrocardiogram Report ---
Test Reason : Blood Pressure : / mmHG Vent. Rate : 082 BPM Atrial Rate : 082 BPM P-R Int : 248 ms QRS Dur : 112 ms QT Int : 418 ms P-R-T Axes : 077 069 -44 degrees QTc Int : 488 ms Sinus rhythm with 1st degree A-V block with Premature atrial complexes Right bundle branch block Prolonged QT Abnormal ECG When compared with ECG of 09-DEC-2022 09:14, No significant change Confirmed by Yoni Blake ([id number]) on 12/12/2022 9:01:39 AM Referred By: Nova Rousseau Confirmed By:Yoni Blake
[2022-12-12] MEDS: FOLIC ACID 1 MG TAB PO SCH (09:25)
--- NOTE | 2022-12-12 13:16 | XCELERA ---
[id number]
[2022-12-12] MEDS: TAMSULOSIN HCL 0.4 MG CAP PO SCH (20:56)
[2022-12-12] MEDS: ATORVASTATIN 40 MG TAB PO SCH (20:57)
[2022-12-13 05:07] LABS: Hematocrit (blood only) 37.6 % (42.0-52.0); Hemoglobin 11.9 g/dl (14.0-18.0); Mean Corpuscular Hemoglobin 31.8 pg (25.0-34.0); Mean Corpuscular Hgb Conc 31.6 g/dL (32.0-36.0); Mean Corpuscular Volume 100.5 fL (80.0-100.0); Mean Platelet Volume 11.7 fL (9.4-12.4); Nucleated RBC # (auto) 0.02 K/uL (0-0.12); Nucleated RBC % (auto) 0.4 %; Platelet Count 141 K/uL (130-400); RDW Coefficient of Variation 18.3 % (11.5-14.5); RDW Standard Deviation 67.3 fL (36.4-46.3); Red Blood Count 3.74 M/uL (4.70-6.10); White Blood Count 5.22 K/ul (4.8-10.8)
[2022-12-13 05:24] LABS: Albumin Globulin Ratio 1.3 (0.9-2); Albumin Level 3.5 gm/dl (3.4-5.0); Bilirubin,Total 3.2 mg/dl (0.2-1.0); Calcium 9.6 mg/dl (8.6-10.3); Creatinine Clr Calc Pharmacy 39.3 ml/min; Est GFR (African American) 42.6 ml/min; Est GFR (Non-African American) 36.8 ml/min; Globulin 2.6 gm/dl (2.5-4.0); Potassium 4.9 mmol/L (3.5-5.1); Total Protein 6.1 gm/dl (6.0-8.3)
--- NOTE | 2022-12-13 07:55 | Hospitalist Progress Note ---
Date of Service December 13, 2022 Assessment & Plan (1) Elevated LFTs: (2) Atrial fibrillation with rapid ventricular response: (3) S/p TAVR (transcatheter aortic valve replacement), bioprosthetic: (4) CHF (congestive heart failure): (5) BPH with obstruction/lower urinary tract symptoms: (6) Depression with anxiety: Plan Yimi is a 76 year old male with history of Paroxysmal A Fib, CHF (HFpEF), S/p TAVR, HTN, trigeminal neuralgia, BPH, CAD, pHTN, gout, chronic anticoagulation, depression, anxiety, glaucoma, osteoarthritis, and lumbar spinal stenosis who presented from PCP office for concerns of jaundice. Patient was found to have elevated LFTs and Bilirubin levels and was admitted for evaluation. Potential Acute on Chronic RHF w/ L HFpEF - S/p TAVR in 11/19 * f/u Echo after TAVR with persistent severe right ventricle dysfunction - Possibility of persistent right heart dysfunction (Cor Pulmonale) contributing to elevated LFT and poor appetite (cardiac cachexia) - Extensive h/o occupational airway exposure of chemical and dust but CTA from this admission with no PF findings * Possibility of underlying lung disease contributing to cardiac status - BNP 12/12 elevated to 1613, Troponin 12/12 peaked at 84 (now downtrending) - Echo 12/12 w/ EF 45-50%, RV pressure/volume overload, severe MR, RVSP 50-60 mmHg, and moderate IVC dilation -Consistent with severe PulHTN, severe MR, Significant RHF- sec to LHF - Continue Lasix hold (40 mg PO daily at home) - encourage PO fluids at this time - Appreciate Cardiology recommendations Goals of care discussion - Considering extent of cardiovascular dysfunction and the overall impact - discussed with family about poor fpc prognosis. - Will continue further discussions and consider palliative care consult Atrial fibrillation with rapid ventricular response: - Chronic paroxysmal AFib, with history of RVR - Now noted to be in NSR - Cardiology Consult: Metoprolol and anticoagulation * IV heparin drip ongoing, Eliquis on discharge Acute on Chronic respiratory failure - On chronic Home O2 - Was needing 4L on admission, now on 1L Elevated LFTs: - Elevation of LFTs and Bilirubin level on admission (levels remain elevated 12/13) - Imaging: CXR, Chest CTA, CTAP, US Liver - No sign of malignancy - GI Consult * EGD/EUS negative * Biliary stent placed d/t evidence of biliary sludge * Recommending removal of stent in 3 months - Ongoing poor appetite despite stent placement Elevated Creatinine - Creatinine 1.66 on admission, baseline 1.4-1.5 - Elevated to 1.78 on 12/13, suspect associated with low PO intake - Continue to encourage PO fluid and meals Macrocytic Anemia/Poikilocytosis - Evidenced on peripheral smear 12/09 - Could not exclude myelodysplasia - Consultation to Hematology - recommending bone marrow Bx, labs for haptoglobin and urine hemosiderin, folic acid supplementation, evaluate immunoglobulins, await EGD * Bone marrow bx results pending S/p TAVR (transcatheter aortic valve replacement), bioprosthetic: - Recently performed on November 19 - he reports no change in his shortness of breath since this BPH with obstruction/lower urinary tract symptoms: - Continue tamsulosin Code: Full VTE Prophylaxis- IV Heparin Diet- low fat, low Na, Disposition- PCU/tele Admission and Anticipated Discharge Date Admission Date: December 08, 2022 Supervising Physician Co-Signing Physician Notes Resident Physician Supervision Note: I independently interviewed and examined the patient and verified the tobar history and physical, reviewed labs and image studies and agree with resident findings and care plan. Subjective 12/13: Yiim was sitting at bedside upon arrival, attempting to eat breakfast, but noting lack of appetite. He endorses nausea/fullness, but denies any emesis or abdominal pain. Patient denies any chest pain, but continues to note shortness of breath (which fatigues him even walking to the bathroom). Today he notes night time awakenings d/t dyspnea as well as an inability to lay flat. Patient denies any headaches or vision changes, but notes lightheadedness upon changing positions. Physical Exam Physical Exam: Gen: NAD, interactive, mild jaundice & scleral icterus (improved) HEENT: NCAT, supple, mild JVD Resp:Non-labored, no wheezing/rhonchi/rales, lung sounds slightly diminished at bases CV:RRR, normal S1/S2, systolic murmur at RUSB, apical holosystolic murmur present (radiating to axilla) Abd: Soft, non-distended, no TTP, normoactive bowels, no masses Extr: 2+ dp bilaterally, trace edema Skin: No rashes lesions or erythema Results & Data Results & Data Vital Signs (Past 12 Hours) Vital Signs Temp Pulse Pulse Resp BP Pulse Ox O2 Del Method 12/13/22 07:50 36.4 C L 83 18 108/68 99 Nasal Cannula 12/13/22 03:00 36.3 C L 65 20 95/62 L 97 Nasal Cannula 12/12/22 22:01 77 12/12/22 22:56 36.3 C L 76 21 94/64 L 98 Nasal Cannula O2 Flow Rate 12/13/22 07:50 1 12/13/22 03:00 12/12/22 22:01 12/12/22 22:56 Resident Activity Tracking Resident Involvement: Resident Care Provided Care Provided: Adult Hospital Medicine
[2022-12-13] MEDS: CIPROFLOXACIN 500 MG TAB PO SCH ×2 (08:12→20:02)
[2022-12-13] MEDS: LORATADINE 10 MG TAB PO SCH (08:12)
[2022-12-13] MEDS: METOPROLOL TARTRATE 25 MG TAB PO SCH ×2 (08:12→20:01)
[2022-12-13] MEDS: PARoxetine HCL 20 MG TAB PO SCH (08:13)
[2022-12-13] MEDS: POTASSIUM CHLORIDE CRTAB 20 MEQ TABCR PO SCH (08:13)
[2022-12-13] MEDS: FOLIC ACID 1 MG TAB PO SCH (08:13)
[2022-12-13] MEDS: ASPIRIN 81 MG ECTAB PO SCH (08:13)
[2022-12-13] MEDS: buPROPion XL 150 MG TABCR PO SCH (08:13)
[2022-12-13] MEDS: PANTOprazole 40 MG TAB PO SCH (08:13)
--- NOTE | 2022-12-13 16:34 | Cardiology Progress Note ---
Date of Service December 13, 2022 Assessment & Plan (1) Severe mitral regurgitation: (2) Dyspnea on exertion: (3) Anorexia: (4) Elevated LFTs: (5) S/p TAVR (transcatheter aortic valve replacement), bioprosthetic: (6) Pulmonary hypertension: (7) CAD (coronary artery disease): (8) Heart failure with mildly reduced ejection fraction (HFmrEF): (9) Paroxysmal A-fib: Plan: 76-year-old man with severe valvular heart disease (status post recent TAVR for severe , mitral regurgitation now appears severe), coronary artery disease (significant circumflex and first diagonal stenoses), severe pulmonary hypertension (see hemodynamics from August 2022 catheterization below), paroxysmal atrial fibrillation (recurrence with RVR earlier this admission, sinus over the past few days), and unexplained liver dysfunction (mild transaminase elevation, moderate bilirubin elevation which is unchanged status post biliary stent placement, and mild coagulopathy) currently he is experiencing fatigue, anorexia, and general failure to thrive with dyspnea on exertion but no evidence of current pulmonary congestion on exam or admission chest x-ray/chest CT. Notably, at his cardiac catheterization August 2022 in addition to his 1-2 vessel coronary artery disease his right heart hemodynamics showed the following: Pulmonary capillary wedge pressure: V wave 66 with a mean of 48 mmHg. PA pressure: 87/39 with a mean of 55 mmHg. RV pressure: 84/12 with EDP 21 mmHg. Right atrial pressure: A-wave 16; V wave 19; mean 14 mmHg. These hemodynamics are markedly deranged and consistent with severe pulmonary hypertension, probaby severe mitral regurgitation, and significant right heart failure, likely secondary to chronic left heart failure. Certainly the hope was that undergoing TAVR would reduce afterload and diminish mitral regurgitation/pulmonary hypertension. However, the patient did not note any material change in his fatigue/dyspnea post TAVR and may well have irreversible pulmonary hypertension/right heart failure. His current echocardiogram shows evidence of right heart dysfunction with pressure/volume overload as well as severe mitral regurgitation. Suspect that his liver dysfunction is due to chronic passive congestion from right heart failure. Although his neck veins are mildly elevated, given his right heart hemodynamics suspect that he needs a greater preload to achieve adequate cardiac output and his current borderline hypotension, renal insufficiency, fatigue and exercise intolerance may be due to inadequate preload given his underlying pathophysiology. Very reluctant to give IV volume load and chronic heart failure patient, since ultimately this fluid must come off and usually later needs to be addressed with a diuretic. Preferable to have him increase oral fluid and sodium intake, even if he does develop a mild increase in his currently minimal leg edema. As I discussed with the patient, unfortunately his physiology suggests chronic issues without the opportunity for any major interventions beyond his recent TAVR. On the other hand, his condition appears chronic and may not deteriorate in the near term, if his volume status could be optimized/equilibrated the hope is that he he may feel well enough to have a reasonable quality of life, albeit one that likely will restrict his physical activity substantially. We'll continue to follow along from a cardiology standpoint. Admission and Anticipated Discharge Date Admission Date: December 08, 2022 Subjective Patient continues to note anorexia and fatigue. No dyspnea at rest and is able to lie flat briefly, but awakens at night short of breath at times. Notes dyspnea when walking more than a short distance. No chest pain, subjective palpitations, recurrent orthostatic symptoms. Telemetry shows sinus rhythm with frequent PACs. Physical Exam Physical Exam: Appears chronically ill but not acutely distressed. Weight appears unreliable. BP low normal/mildly hypotensive. Pulse 70-80 bpm and regular with frequent ectopy. Skin: no ecchymoses or generalized lesions. HEENT: unremarkable. Neck: JVP difficult to assess, appears mildly elevated but baseline JVP in the context of pulmonary hypertension is uncertain. Faint murmur transmitted to carotids. Lungs: Moderately decreased breath sounds with dullness at the bases, generally clear. No wheezing or accessory muscle use. Cardiac: regular rhythm with frequent ectopy, mildly diminished but audible aortic closure sound, 2/6 crescendo decrescendo systolic murmur right upper sternal border rating to the carotids, 4/6 apical holosystolic murmur rating to the axilla, no diastolic murmur. Abdomen: benign. Extremities: Trace to 1+ pretibial edema, pulses intact. Neurologic: normal affect and conversation, grossly nonfocal. Results & Data Laboratory Results Normal electrolytes, BUN 41, creatinine 1.78 (1.69 yesterday). Bilirubin 3.2 (3.0 yesterday) AST 51, ALT 57, alkaline phosphatase 140. Troponin 68 (84 yesterday). Diagnostic Findings Echocardiogram showed EF 45 to 50% with mild global hypokinesis, septum consistent with RV pressure/volume overload, moderately dilated right ventricle with moderately reduced systolic function, bioprosthetic aortic valve which appears to be functioning well, severe mitral regurgitation moderately dilated left atrium, moderate to severe pulmonary hypertension, moderately dilated IVC. PG Care Time/CCT Total # of Minutes Spent Total Time Spent with Patient: Total time spent is greater than 50% in coordination of care (as documented) at patient's floor/unit and/or counseling patient: Coding Level of Care Code 97152 SUB INP/OBS CARE 3/50MIN Diagnoses Severe mitral regurgitation I34.0 Dyspnea on exertion R06.00 Anorexia R63.0 Elevated LFTs R79.89 S/p TAVR (transcatheter aortic valve replacement), bioprosthetic Z95.3 Pulmonary hypertension I27.20 CAD (coronary artery disease) I25.10 Heart failure with mildly reduced ejection fraction (HFmrEF) I50.22 Paroxysmal A-fib I48.0
[2022-12-13 18:50] LABS: INR 1.2 (0.9-1.1); Partial Thromboplastin Time 29.4 Seconds (21.0-31.0); Prothrombin Time 13.1 Seconds (9.0-12.0)
[2022-12-13] MEDS: HEPARIN SODIUM/DEXTROSE 25,000 UNITS/500 ML BAG IV SCH (19:14)
[2022-12-13] MEDS: ATORVASTATIN 40 MG TAB PO SCH (20:01)
[2022-12-13] MEDS: TAMSULOSIN HCL 0.4 MG CAP PO SCH (20:01)
[2022-12-14 01:39] LABS: Hematocrit (blood only) 35.6 % (42.0-52.0); Hemoglobin 11.6 g/dl (14.0-18.0); Mean Corpuscular Hemoglobin 32.4 pg (25.0-34.0); Mean Corpuscular Hgb Conc 32.6 g/dL (32.0-36.0); Mean Corpuscular Volume 99.4 fL (80.0-100.0); Mean Platelet Volume 11.6 fL (9.4-12.4); Nucleated RBC # (auto) 0.02 K/uL (0-0.12); Nucleated RBC % (auto) 0.3 %; Platelet Count 134 K/uL (130-400); RDW Coefficient of Variation 17.9 % (11.5-14.5); RDW Standard Deviation 65.8 fL (36.4-46.3); Red Blood Count 3.58 M/uL (4.70-6.10); White Blood Count 6.22 K/ul (4.8-10.8)
[2022-12-14 01:54] LABS: Albumin Globulin Ratio 1.4 (0.9-2); Albumin Level 3.5 gm/dl (3.4-5.0); BUN Creatinine Ratio 21.8 (10-20); Calcium 9.4 mg/dl (8.6-10.3); Creatinine Clr Calc Pharmacy 39.2 ml/min; Est GFR (African American) 42.3 ml/min; Est GFR (Non-African American) 36.5 ml/min; Globulin 2.5 gm/dl (2.5-4.0); Potassium 4.9 mmol/L (3.5-5.1)
[2022-12-14 02:59] LABS: Partial Thromboplastin Ratio 2.2
[2022-12-14 03:05] LABS: Partial Thromboplastin Time 61.9 Seconds (21.0-31.0)
--- NOTE | 2022-12-14 07:31 | Hospitalist Progress Note ---
Date of Service December 14, 2022 Assessment & Plan (1) Elevated LFTs: (2) Atrial fibrillation with rapid ventricular response: (3) S/p TAVR (transcatheter aortic valve replacement), bioprosthetic: (4) CHF (congestive heart failure): (5) BPH with obstruction/lower urinary tract symptoms: (6) Depression with anxiety: Plan Yimi is a 76 year old male with history of Paroxysmal A Fib, CHF (HFpEF), S/p TAVR, HTN, trigeminal neuralgia, BPH, CAD, pHTN, gout, chronic anticoagulation, depression, anxiety, glaucoma, osteoarthritis, and lumbar spinal stenosis who presented from PCP office for concerns of jaundice. Patient was found to have elevated LFTs and Bilirubin levels and was admitted for evaluation. Potential Acute on Chronic RHF w/ L HFpEF - S/p TAVR in 11/19 * f/u Echo after TAVR with persistent severe right ventricle dysfunction - Persistent right heart dysfunction (Cor Pulmonale) contributing to elevated LFT and poor appetite (cardiac cachexia) - Extensive h/o occupational airway exposure of chemical and dust but CTA from this admission with no PF findings * Possibility of underlying lung disease contributing to cardiac status - BNP 12/12 elevated to 1613, Troponin 12/12 peaked at 84 (now downtrending) - Echo 12/12 w/ EF 45-50%, RV pressure/volume overload, severe MR, RVSP 50-60 mmHg, and moderate IVC dilation * Consistent with severe PulHTN, severe MR, Significant RHF 2/2 LHF - Cardiology recommendation: * Continue diuretic hold, liberalize Na/fluid restriction to encourage increased preload, if blunted HR response with ambulation could decrease Metoprolol to 25 mg * Would plan sliding scale diuretics upon discharge and only reinstitute for significant weight gain Goals of care discussion - Considering extent of cardiovascular dysfunction and the overall impact * 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 * Will continue further discussions - Palliative care consulted 12/13 with family support - Family noted need for home O2 and home wheel chair as patient unable to ambulate d/t dyspnea * PT/OT ordered - recommending safe for home with * Plan 2 step O2 before discharge * CM notified - placed new referral to Atrial fibrillation with RVR: - Chronic paroxysmal AFib, with history of RVR - Now noted to be in NSR - Cardiology Consult: Metoprolol and anticoagulation * Transitioned to Eliquis 12/14 Acute on Chronic respiratory failure - On chronic Home O2 - Was needing 4L on admission, now on 1L Elevated LFTs: - Elevation of LFTs and Bilirubin level on admission (levels remain elevated 12/14) - Imaging: CXR, Chest CTA, CTAP, US Liver - No sign of malignancy - GI Consult * EGD/EUS negative * Biliary stent placed d/t evidence of biliary sludge * Recommending removal of stent in 3 months - Ongoing poor appetite despite stent placement - 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 - if formal diagnosis needed - will need transjugular liver biopsy and pressure checks Elevated Creatinine - Creatinine 1.66 on admission, baseline 1.4-1.5 - Elevated to 1.79 on 12/14, suspect associated with low PO intake - Continue to encourage PO fluid and meals, removed Na and Fluid restriction Macrocytic Anemia/Poikilocytosis - Evidenced on peripheral smear 12/09 - Could not exclude myelodysplasia - Consultation to Hematology - recommended bone marrow Bx, labs for haptoglobin and urine hemosiderin, folic acid supplementation, evaluate immunoglobulins, await EGD * Bone Marrow Chromosome analysis pending * Flow Cytometry: Normal S/p TAVR (transcatheter aortic valve replacement), bioprosthetic: - Recently performed on November 19 - he reports no change in his shortness of breath since this BPH with obstruction/lower urinary tract symptoms: - Continue tamsulosin Code: DNR/DNI VTE Prophylaxis- Eliquis Diet- Regular Disposition- PCU/tele Admission and Anticipated Discharge Date Admission Date: December 08, 2022 Supervising Physician Co-Signing Physician Notes Resident Physician Supervision Note: I independently interviewed and examined the patient and verified the tobar history and physical, reviewed labs and image studies and agree with resident findings and care plan. Subjective 12/14: Yimi was at bedside attempting to eat breakfast upon arrival. He continues to note lack of appetite and nausea, but denies any pain. He continuse to experience significant dyspnea upon exertion and occasional lightheadedness, even with short distances. He denies any chest pain, headaches, or bowel/bladder changes. Physical Exam Physical Exam: Gen: NAD, interactive, mild jaundice & scleral icterus (improved) HEENT: NCAT, supple, mild JVD Resp:Non-labored, no wheezing/rhonchi/rales, lung sounds slightly diminished at bases CV:RRR, normal S1/S2, systolic murmur at RUSB, apical holosystolic murmur present (radiating to axilla) Abd: Soft, non-distended, no TTP, normoactive bowels, no masses Extr: 2+ dp bilaterally, trace edema Skin: No rashes lesions or erythema Results & Data Results & Data Vital Signs (Past 12 Hours) Vital Signs Temp Pulse Pulse Resp BP Pulse Ox O2 Del Method 12/14/22 03:00 36.5 C 92 H 19 103/71 98 Nasal Cannula 12/13/22 22:02 72 12/13/22 23:00 36.2 C L 72 18 108/65 99 Nasal Cannula 12/13/22 22:27 Nasal Cannula O2 Flow Rate 12/14/22 03:00 12/13/22 22:02 12/13/22 23:00 12/13/22 22:27 1 Resident Activity Tracking Resident Involvement: Resident Care Provided Care Provided: Adult Hospital Medicine
[2022-12-14] MEDS: CIPROFLOXACIN 500 MG TAB PO SCH ×2 (08:16→21:42)
[2022-12-14] MEDS: PANTOprazole 40 MG TAB PO SCH (08:17)
[2022-12-14] MEDS: METOPROLOL TARTRATE 25 MG TAB PO SCH ×2 (08:17→21:46)
[2022-12-14] MEDS: ASPIRIN 81 MG ECTAB PO SCH (08:17)
[2022-12-14] MEDS: PARoxetine HCL 20 MG TAB PO SCH (08:17)
[2022-12-14] MEDS: POTASSIUM CHLORIDE CRTAB 20 MEQ TABCR PO SCH (08:18)
[2022-12-14] MEDS: FOLIC ACID 1 MG TAB PO SCH (08:18)
[2022-12-14] MEDS: LORATADINE 10 MG TAB PO SCH (08:18)
[2022-12-14] MEDS: buPROPion XL 150 MG TABCR PO SCH (08:18)
--- NOTE | 2022-12-14 09:29 | Gastroenterology Progress Note ---
Date of Service December 14, 2022 Assessment & Plan (1) Elevated LFTs: Plan: Improved but not resolved to normal w ERCP w sweeping of biliary sludge and CBD stent placement Plan Likely remaining LFT elevation due to CHF and would expect to improve as CHF is treated/optimized. Can f/u w Dr. Mcconnell in the GI clinic for consideration for further testing if CHF is optimized and pt remains w significantly elevated LFTs. Admission and Anticipated Discharge Date Admission Date: December 08, 2022 Supervising Physician Co-Signing Physician Notes I saw and evaluated the patient, he had only a mild change of his liver tests with the recnet ERCP. Based on the avaiable information he likley has congestive hepatopathy as the cause of the continued elevation. If a formal diagnosis is needed the best option would be a transjugular liver biopsy wiht right heart pressures. Recomendation: repear ERCP wtih Dr Mcconnell to be scheduled Please call with an [employer] [facility] to sign off Subjective 76, male HTN, Mild LVH, Severe S/p TAVR (transcatheter aortic valve replacement), bioprosthetic, CAD, CHF w mild decreased EF, and Paroxysmal Atrial Fibrillation admitted with jaundice. EGD/EUS/ERCP on Monday 12/11 w sphin cterotomy, sweeping of the bile ducts for stones and placement of a CBD stent. T bili overall improved from 3.8 peak to 3.0 today. Also mild improvement in other LFTs. Review of Systems Review of Systems: ROS: Gen: Denies weakness, fevers, weight loss Eyes: No eye redness, or pain, no recent vision changes Resp: + chronic SOB on any activity - not recently worsened. Has a mild chronic cogh Cardio: Chronic SOB, no CP or irregular beats. GI: No abdominal pain, no nausea/vomiting : Denies pain on urination Skin: No jaundice, itching or new rashes Physical Exam Constitutional: well developed, well nourished, + ill appearing (chronically), cooperative and + overweight Eyes: PERRL, conjunctivae normal, anicteric sclerae ENMT: external ear and nose normal, oropharynx normal Neck: trachea midline, no thyromegaly Respiratory: decreased sounds at the bases, no wheezes or crackles Cardiovascular: Rate/Rhythm: regular rate and regular rhythm Heart Sounds: + murmur (3/6 systolic murmur) Gastrointestinal (Abdomen): normal bowel sounds, soft, nontender, no hepatosplenomegaly Musculoskeletal: no cyanosis or clubbing, extremities motor strength 5/5 Skin: no rashes, warm and dry (sl pale) Neurologic: PERRL, EOMI, accommodation nl, no face palsy, no dysarthria Psychiatric: A+Ox3, euthymic affect Lymphatic: no cervical or axillary lymphadenopathy Results & Data Vital Signs (Past 12 Hours) Vital Signs Temp Pulse Pulse Resp BP Pulse Ox O2 Del Method 12/14/22 07:52 36.6 C 86 20 102/75 98 Nasal Cannula 12/14/22 03:00 36.5 C 92 H 19 103/71 98 Nasal Cannula 12/13/22 22:02 72 12/13/22 23:00 36.2 C L 72 18 108/65 99 Nasal Cannula 12/13/22 22:27 Nasal Cannula O2 Flow Rate 12/14/22 07:52 4 12/14/22 03:00 12/13/22 22:02 12/13/22 23:00 12/13/22 22:27 1 Laboratory Results T Bili 3.0, AST 48, ALT 53, Alk Phos 141, WBC 6.2, Hb 11.6, Hct 35.6, Plts 134, INR 1.2, Na 137, K 4.9, Cl 106, Co2 24, BUN 29, Cl 1.79 Diagnostic Findings CTAP w IV 12/08/22: 1. Mild prominence of the wall of the ascending colon may be secondary to underdistention. Colitis is not exited. 2. Hepatic steatosis. Small right hepatic cyst. 3. Small amount of fluid in the pelvis. Trace perihepatic fluid. 4. Please see accompanying CT chest for further details. US 12/13/22: 1. Hepatic steatosis. 2. Distended gallbladder. No shadowing gallstones are identified and there is no clear sonographic evidence of acute cholecystitis. Clinical and laboratory correlation will be required. If there is clinical concern for acalculus cholecystitis a hepatobiliary scan should be considered. 3. Trace perihepatic ascites. 4. Right pleural effusion.
--- NOTE | 2022-12-14 12:35 | Cardiology Progress Note ---
Date of Service December 14, 2022 Assessment & Plan (1) Severe mitral regurgitation: (2) Dyspnea on exertion: (3) Anorexia: (4) Elevated LFTs: (5) S/p TAVR (transcatheter aortic valve replacement), bioprosthetic: (6) Pulmonary hypertension: (7) CAD (coronary artery disease): (8) Heart failure with mildly reduced ejection fraction (HFmrEF): (9) Paroxysmal A-fib: Plan: See 12/13/22 note for background. Currently, main underlying pathophysiology seems to be chronic severe right heart failure/pulmonary hypertension with current severe mitral regurgitation after recent resolution of severe aortic stenosis via TAVR. Would expect elevated neck veins, his borderline hypotension and absence of JVD or significant edema suggest that he is relatively hypovolemic versus his usual baseline. This may be contributing to his anorexia and fatigue. Recommend cont inuing to hold diuretic while instituting more liberal sodium containing diet and encouraging oral intake, would not recommend intravenous saline in the absence of acute decompensation. Did discuss with the patient that the severity/chronicity of his condition, palliative care consultation may be a consideration. Would attempt to ambulate, if he has appropriate chronotropic response could continue current metoprolol dose, however if he has a blunted heart rate response could reduce metoprolol to 25 mg daily (would not eliminate metoprolol given his history of paroxysmal atrial fibrillation). No further major recommendations, if he is discharged home would use a sliding scale diuretic regimen (none initially, restart diuretic for significant weight gain). Admission and Anticipated Discharge Date Admission Date: December 08, 2022 Subjective Telemetry showed sinus rhythm in the 70 bpm range. Physical Exam Physical Exam: Appears chronically ill but not acutely distressed. Weight appears unreliable, but unchanged over the past few days. BP low normal/mildly hypotensive. Pulse 70 bpm and regular with frequent ectopy. Skin: no ecchymoses or generalized lesions. HEENT: unremarkable. Neck: JVP at the clavicle at 90 degrees. Faint murmur transmitted to carotids. Lungs: Moderately decreased breath sounds with dullness at the bases, generally clear. No wheezing or accessory muscle use. Cardiac: regular rhythm with frequent ectopy, mildly diminished but audible aortic closure sound, 2/6 crescendo decrescendo systolic murmur right upper sternal border rating to the carotids, 4/6 apical holosystolic murmur rating to the axilla, no diastolic murmur. Abdomen: benign. Extremities: Trace pretibial edema, pulses intact. Neurologic: normal affect and conversation, grossly nonfocal. Results & Data Vital Signs (Past 12 Hours) Vital Signs Temp Pulse Resp BP Pulse Ox O2 Del Method O2 Flow Rate 12/14/22 11:26 97.7 F 75 18 108/48 L 98 Nasal Cannula 4 12/14/22 09:20 Nasal Cannula 1 12/14/22 07:52 97.9 F 86 20 102/75 98 Nasal Cannula 4 12/14/22 03:00 97.7 F 92 H 19 103/71 98 Nasal Cannula Laboratory Results Normal electrolytes, BUN 39, creatinine 1.79 (BUN/creatinine 41/1.78 yesterday) PG Care Time/CCT Total # of Minutes Spent Total Time Spent with Patient: Total time spent is greater than 50% in coordination of care (as documented) at patient's floor/unit and/or counseling patient: Coding Level of Care Code 04875 SUB INP/OBS CARE 3/50MIN Diagnoses Severe mitral regurgitation I34.0 Dyspnea on exertion R06.00 Anorexia R63.0 Elevated LFTs R79.89 S/p TAVR (transcatheter aortic valve replacement), bioprosthetic Z95.3 Pulmonary hypertension I27.20 CAD (coronary artery disease) I25.10 Heart failure with mildly reduced ejection fraction (HFmrEF) I50.22 Paroxysmal A-fib I48.0
[2022-12-14] MEDS ORDERED: PROMETHAZINE HCL 12.5 MG/10 ML UDP PO ONE (13:33)
--- NOTE | 2022-12-14 16:04 | Palliative Care Consultation ---
Date of Consultation December 14, 2022 Assessment & Plan (1) Palliative care encounter: I met with Mr. Snyder, his and daughter, at bedside. He understands that he has multiorgan failure and that his prognosis is not good. He tells me that he is not afraid of dying. He feels that when it is his time to , he is ready to go. He would like to have a peaceful at home if he were able to choose. He and his are living with their daughter who helps with care. They do have visiting nurses for support. Mr. Snyder tells me that he enjoys watching TV and that what he would like most is to have time to spend with his friends and family. He and his have enjoyed camping but have had to give that up. He has not really thought much about whether there are limitations to what he would want for his care. We talked about his current status as full code and his wish to have a peaceful at home. He tells me that he would not want to have intubation or breathing support. We discussed statistical likelihood of successful CPR, given his current health status, would be less than 5%. He tells me that he would not want CPR. Code status changed to DNR to reflect his wishes. We also discussed option for hospice care support at home and what would be involved with that. He tells me that he actually likes coming to the hospital and would want to return to the hospital if needed. He would want continued medical management to maximize his functional status as much as possible. He does understand that he is likely to but does not feel that he wants hospice at this time. His and daughter support this decision. History of Present Illness Reason for Consultation: goals of care Attending Physician: Keke Conti MD History of Present Illness 76 yo gentleman with history of right heart failure, cor pulmonale, afib with RVR. He is s/p TAVR approximately one month ago. He presented with acute on chronic respiratory failure and jaundice. He has had poor appetite and weight loss for several months per his . He complains of nausea and sour taste in his stomach. He has had severe right heart failure which unfortunately has not improved after TAVR. He also has macrocytic anemia with poikilocytosis on peripheral smear. He did have bone marrow biopsy which was negative. His creat inine has been slowly increasing over the course of his hospital stay and is 1.79 with GFR of 36.5. He continues to have elevated LFTs, likely related to hepatic congestion with his heart failure. Allergies Allergy/AdvReac Type Severity Reaction Status Date / Time baclofen Allergy Unknown PT & PT'S Verified 12/08/22 20:11 SPOUSE DENIES ANY ALLERGIES OR SENSATIVITY TO MED cyclobenzaprine Allergy Unknown PT & PT'S Verified 12/08/22 20:11 [From Flexeril] SPOUSE DENIES ANY ALLERGIES OR SENSATIVITY TO MED doxazosin Allergy Unknown PT & PT'S Verified 12/08/22 20:11 SPOUSE DENIES ANY ALLERGIES OR SENSATIVITY TO MED doxycycline Allergy Unknown PT & PT'S Verified 12/08/22 20:11 SPOUSE DENIES ANY ALLERGIES OR SENSATIVITY TO MED duloxetine Allergy Unknown PT & PT'S Verified 12/08/22 20:11 SPOUSE DENIES ANY ALLERGIES OR SENSATIVITY TO MED gabapentin Allergy Unknown PT & PT'S Verified 12/08/22 20:11 SPOUSE DENIES ANY ALLERGIES OR SENSATIVITY TO MED lisinopril Allergy Unknown PT & PT'S Verified 12/08/22 20:11 SPOUSE DENIES ANY ALLERGIES OR SENSATIVITY TO MED naproxen Allergy Unknown PT & PT'S Verified 12/08/22 20:11 SPOUSE DENIES ANY ALLERGIES OR SENSATIVITY TO MED nortriptyline [From Pamelor] Allergy Unknown PT & PT'S Verified 12/08/22 20:11 SPOUSE DENIES ANY ALLERGIES OR SENSATIVITY TO MED oxcarbazepine Allergy Unknown PT & PT'S Verified 12/08/22 20:11 SPOUSE DENIES ANY ALLERGIES OR SENSATIVITY TO MED Penicillins Allergy Unknown PT & PT'S Verified 12/08/22 20:11 SPOUSE DENIES ANY ALLERGIES OR SENSATIVITY TO MED Home Medications Medication Instructions Recorded Confirmed Type acetaminophen 500 mg tablet 1,000 mg PO TID PRN fever or pain 11/18/18 12/08/22 Rx #90 tabs aspirin 81 mg tablet,delayed 81 mg PO DAILY #90 tabs 06/09/22 12/08/22 Rx release metoprolol succinate 25 mg 12.5 mg PO QAM #30 tabs 08/22/22 12/08/22 Rx tablet,extended release 24 hr Wheelchair (Manual) #1 ea 09/17/22 12/08/22 Rx Oxygen Home #1 ea 10/12/22 12/08/22 Rx atorvastatin 80 mg tablet 80 mg PO HS #90 tabs 11/05/22 12/08/22 Rx bupropion HCl 150 mg 24 hr tablet, 150 mg PO QAM #90 tabs 11/05/22 12/08/22 Rx extended release (Wellbutrin XL) fluticasone propionate 50 2 spray intranasal DAILY #48 grams 11/05/22 12/08/22 Rx mcg/actuation nasal spray,suspension (Flonase Allergy Relief) pantoprazole 40 mg tablet,delayed 40 mg PO DAILY #90 tabs 11/05/22 12/08/22 Rx release paroxetine HCl 40 mg tablet 40 mg PO QAM #90 tabs 11/05/22 12/08/22 Rx potassium chloride 20 mEq 20 meq PO QAM #90 tabs 11/05/22 12/08/22 Rx tablet,extended release tamsulosin 0.4 mg capsule 0.4 mg PO HS #90 caps 11/05/22 12/08/22 Rx furosemide 40 mg tablet (Lasix) 40 mg PO DAILY 11/09/22 12/08/22 History loratadine 10 mg tablet 10 mg PO DAILY 11/09/22 12/08/22 History Patient History Medical History Acute heart failure with preserved ejection fraction Aneurysm, thoracic aortic pt unaware of size, follows with Dr. Paige Aortic atherosclerosis Aortic stenosis, severe BPH with obstruction/lower urinary tract symptoms CAD (coronary artery disease) Cervical disc disease Chronic sinusitis Cognitive disorder Coronary artery calcification Depression with anxiety Dyslipidemia Glaucoma Hearing loss Hepatic steatosis History of central retinal vein occlusion Hypertension Iron deficiency Lower GI bleed no current issues Lumbar spinal stenosis Mitral regurgitation MVP (mitral valve prolapse) Osteoarthritis PAC (premature atrial contraction) PAF (paroxysmal atrial fibrillation) Sleep apnea Trigeminal neuralgia received radiation for this, having numbess/tingling to right side of face since this Vitamin D deficiency Surgical History H/O cataract extraction (2013) H/O colonoscopy History of cochlear implant (01/12/12) BILATERAL History of pilonidal cyst removed History of umbilical hernia repair S/P foot surgery, right (12/2010) removal of heel spur S/P laser trabeculoplasty of eye (10/2014) b/l S/P nasal endoscopy with nasal polypectomy (2011) S/P rotator cuff repair b/l shoulders S/p TAVR (transcatheter aortic valve replacement), 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) Family History Mother No pertinent family history Other Hypertension Denies family history of Ovarian cancer Prostate cancer Diabetes Myocardial infarction Breast cancer Colorectal cancer Cancer Social History Smoking Status: Never smoker Second Hand Exposure: No; Do You Dip or Chew Tobacco: No; Tobacco Cessation Education Requested by Patient: No Hx Alcohol Use: No Hx Substance Use: No Preferred Language: Belarusian Communication Ability: Effective Visual Impairment: No Limitations Hearing Ability: Cochlear Implant Chef Head Required: No Beliefs That Will Affect Care: None marital status: Current Living Situation: Spouse Current Living Situation Comment: with and daughter current occupational status: retired How many Children do You have: 1 Other Information That Helps Us Care for You: No Feels Safe at Home: Yes Safety Concerns: Feels Safe At This Time Childhood Exposure to Second-Hand Smoke: Yes Diet: regular Diet Comment: regular caffeine: Yes (Soda 6 per day. Coffee 1 cup per day.) during the past year weight has: remained stable Dental Care, Regularly: No Physical Activity Frequency: Daily Seatbelt Use: sometimes Sunscreen Use: No Assistive Devices: Cane, CPAP, Oxygen - at Night and Walker Assistive Devices Comment: cane at bedside Review of Systems Review of Systems: ESAS Pain 0/3 Dyspnea 1/3 Nausea 2/3 Drowsiness 0/3 Physical Exam Constitutional: + ill appearing; no acute distress ENMT: hearing impairment Respiratory: normal respiratory effort; no labored breathing Cardiovascular: Rate/Rhythm: + irregularly irregular Neurologic: Speech / Cognition: normal cognition Genitourinary: catheter Results & Data Vital Signs (Past 12 Hours) Vital Signs Temp Pulse Resp BP BP Pulse Ox O2 Del Method 12/14/22 15:41 97.3 F L 119 H 16 103/69 94 Nasal Cannula 12/14/22 11:26 97.7 F 75 18 108/48 L 98 Nasal Cannula 12/14/22 09:20 Nasal Cannula 12/14/22 07:52 97.9 F 86 20 102/75 98 Nasal Cannula O2 Flow Rate 12/14/22 15:41 1 12/14/22 11:26 4 12/14/22 09:20 1 12/14/22 07:52 4 PG Care Time/CCT Total # of Minutes Spent Total Time Spent: 82 Total Time Spent with Patient: goals of care, code status, hospice, prognosis, patient and family education and support Coding Level of Care Code 81217 INT INP/OBS CARE 3/75MIN Diagnoses Palliative care encounter Z51.5
[2022-12-14] MEDS: APIXABAN 5 MG TABLET PO SCH (21:41)
[2022-12-14] MEDS: TAMSULOSIN HCL 0.4 MG CAP PO SCH (21:41)
[2022-12-14] MEDS: ATORVASTATIN 40 MG TAB PO SCH (21:42)
[2022-12-15 06:25] LABS: Hemoglobin 11.7 g/dl (14.0-18.0); Mean Corpuscular Hgb Conc 31.6 g/dL (32.0-36.0); Mean Corpuscular Volume 101.1 fL (80.0-100.0); Mean Platelet Volume 12.1 fL (9.4-12.4); Platelet Count 135 K/uL (130-400); RDW Coefficient of Variation 18.2 % (11.5-14.5); Red Blood Count 3.66 M/uL (4.70-6.10); White Blood Count 5.02 K/ul (4.8-10.8)
[2022-12-15 06:38] LABS: Albumin Globulin Ratio 1.3 (0.9-2); Albumin Level 3.5 gm/dl (3.4-5.0); Bilirubin,Total 3.2 mg/dl (0.2-1.0); Calcium 9.5 mg/dl (8.6-10.3); Creatinine Clr Calc Pharmacy 33.4 ml/min; Est GFR (African American) 38.9 ml/min; Est GFR (Non-African American) 33.5 ml/min; Globulin 2.6 gm/dl (2.5-4.0); Potassium 4.8 mmol/L (3.5-5.1); Total Protein 6.1 gm/dl (6.0-8.3)
[2022-12-15 06:47] LABS: Partial Thromboplastin Ratio 1.1; Partial Thromboplastin Time 30.3 Seconds (21.0-31.0)
[2022-12-15] MEDS: APIXABAN 5 MG TABLET PO SCH ×2 (07:21→20:10)
[2022-12-15] MEDS: METOPROLOL TARTRATE 25 MG TAB PO SCH ×2 (07:21→20:11)
[2022-12-15] MEDS: CIPROFLOXACIN 500 MG TAB PO SCH (07:22)
[2022-12-15] MEDS: POTASSIUM CHLORIDE CRTAB 20 MEQ TABCR PO SCH (07:22)
[2022-12-15] MEDS: buPROPion XL 150 MG TABCR PO SCH (07:22)
[2022-12-15] MEDS: PANTOprazole 40 MG TAB PO SCH (07:23)
[2022-12-15] MEDS: LORATADINE 10 MG TAB PO SCH (07:23)
[2022-12-15] MEDS: PARoxetine HCL 20 MG TAB PO SCH (07:23)
[2022-12-15] MEDS: FOLIC ACID 1 MG TAB PO SCH (07:24)
[2022-12-15] MEDS: ASPIRIN 81 MG ECTAB PO SCH (07:24)
--- NOTE | 2022-12-15 07:41 | Hospitalist Progress Note ---
Date of Service December 15, 2022 Assessment & Plan (1) Elevated LFTs: (2) Atrial fibrillation with rapid ventricular response: (3) S/p TAVR (transcatheter aortic valve replacement), bioprosthetic: (4) CHF (congestive heart failure): (5) BPH with obstruction/lower urinary tract symptoms: (6) Depression with anxiety: Plan Yimi is a 76 year old male with history of Paroxysmal A Fib, CHF (HFpEF), S/p TAVR, HTN, trigeminal neuralgia, BPH, CAD, pHTN, gout, chronic anticoagulation, depression, anxiety, glaucoma, osteoarthritis, and lumbar spinal stenosis who presented from PCP office for concerns of jaundice. Patient was found to have elevated LFTs and Bilirubin levels and was admitted for evaluation. Potential Acute on Chronic RHF w/ L HFpEF - S/p TAVR in 11/19 * f/u Echo after TAVR with persistent severe right ventricle dysfunction - Persistent right heart dysfunction (Cor Pulmonale) contributing to elevated LFT and poor appetite (cardiac cachexia) - Extensive h/o occupational airway exposure of chemical and dust but CTA from this admission with no PF findings * Possibility of underlying lung disease contributing to cardiac status - BNP 12/12 elevated to 1613, Troponin 12/12 peaked at 84 (now downtrending) - Echo 12/12 w/ EF 45-50%, RV pressure/volume overload, severe MR, RVSP 50-60 mmHg, and moderate IVC dilation * Consistent with severe PulHTN, severe MR, Significant RHF 2/2 LHF - Cardiology recommendation: * Continue diuretic hold, liberalize Na/fluid restriction to encourage increased preload * If blunted HR response with attempted ambulation could decrease Metoprolol to 25 mg * Would plan sliding scale diuretics upon discharge and only reinstitute for significant weight gain Goals of care discussion - Considering extent of cardiovascular dysfunction and the overall impact * Discussed with family about poor manager long term care prognosis. * Will continue further discussions - Palliative care consulted 12/13 with family support - Family noted need for home O2 and home wheel chair as patient unable to ambulate d/t dyspnea * PT/OT ordered - recommending safe for home with * Plan 2 step O2 before discharge * CM notified - placed new referral to Atrial fibrillation with RVR: - Chronic paroxysmal AFib, with history of RVR - Now noted to be in NSR - Cardiology Consult: Metoprolol and anticoagulation * Transitioned to Eliquis 12/14 Acute on Chronic respiratory failure - On chronic Home O2 - Was needing 4L on admission, currently requiring 2-4 L via NC Elevated LFTs: - Elevation of LFTs and Bilirubin level on admission (levels remain elevated 12/15) - Imaging: CXR, Chest CTA, CTAP, US Liver - No sign of malignancy - GI Consult * EGD/EUS negative * Biliary stent placed d/t evidence of biliary sludge * Recommending removal of stent in 3 months - Ongoing poor appetite despite stent placement - 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 - If formal diagnosis needed - will need transjugular liver biopsy and pressure checks EVELYN on CKD 3 - Creatinine 1.66 on admission, baseline 1.4-1.5 - Elevated to 1.9 on 12/15, suspect associated with low PO intake * Continue to encourage PO fluid and meals, removed Na and Fluid restriction * Avoiding IVF given significant HF Macrocytic Anemia/Poikilocytosis - Evidenced on peripheral smear 12/09 - Could not exclude myelodysplasia - Consultation to Hematology - following, complete BM bx results pending * Bone Marrow Chromosome analysis pending * Flow Cytometry: Normal S/p TAVR (transcatheter aortic valve replacement), bioprosthetic: - Recently performed on November 19 - he reports no change in his shortness of breath since this BPH with obstruction/lower urinary tract symptoms: - Continue tamsulosin Code: DNR/DNI VTE Prophylaxis- Eliquis Diet- Regular Disposition- PCU/tele Admission and Anticipated Discharge Date Admission Date: December 08, 2022 Supervising Physician Co-Signing Physician Notes Resident Physician Supervision Note: I independently interviewed and examined the patient and verified the tobar history and physical, reviewed labs and image studies and agree with resident findings and care plan. Subjective 12/15: Yimi was sitting up at bedside upon arrival. He continues to note lack of interest in meals or fluids, but is not experiencing any pain, epigastric fullness or nausea. He notes ongoing dyspnea at rest, but it is worse with exertion. He denies any chest pain, headaches, or bowel/bladder discomfort. He notes an understanding of yesterday's conversations regarding palliative medicine and physical therapy. He notes that ultimately he wants to discharge to home, but does not feel that he is ready to do so yet. Physical Exam Physical Exam: Gen: NAD, interactive, mild jaundice & scleral icterus (improved) HEENT: NCAT, supple, no JVD Resp:Non-labored, no wheezing/rhonchi/rales, lung sounds slightly diminished at bases CV:RRR, normal S1/S2, systolic murmur at RUSB, apical holosystolic murmur present (radiating to axilla) Abd: Soft, non-distended, no TTP, normoactive bowels, no masses Extr: 2+ dp bilaterally, trace edema Skin: No rashes lesions or erythema Results & Data Results & Data Vital Signs (Past 12 Hours) Vital Signs Temp Pulse Pulse Resp BP Pulse Ox O2 Del Method 12/15/22 07:15 Nasal Cannula 12/15/22 07:02 77 12/15/22 03:00 36.3 C L 62 19 92/59 L 95 Nasal Cannula 12/14/22 21:55 81 23 96 12/14/22 23:00 36.5 C 81 18 100/67 98 Nasal Cannula 12/14/22 23:34 79 12/14/22 21:44 81 101/72 12/14/22 19:58 Nasal Cannula O2 Flow Rate 12/15/22 07:15 1 12/15/22 07:02 12/15/22 03:00 12/14/22 21:55 2 12/14/22 23:00 12/14/22 23:34 12/14/22 21:44 12/14/22 19:58 1 Resident Activity Tracking Resident Involvement: Resident Care Provided Care Provided: Adult Hospital Medicine
--- NOTE | 2022-12-15 09:18 | Cardiology Progress Note ---
Date of Service December 15, 2022 Assessment & Plan (1) Heart failure with mildly reduced ejection fraction (HFmrEF): (2) Pulmonary hypertension: (3) Severe mitral regurgitation: (4) S/p TAVR (transcatheter aortic valve replacement), bioprosthetic: (5) CAD (coronary artery disease): (6) Aneurysm, thoracic aortic: (7) PAF (paroxysmal atrial fibrillation): Plan Mr. 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 Currently, his main underlying pathophysiology appears to be chronic severe right heart failure/pulmonary hypertension with current severe mitral regurgitation after recent resolution of severe aortic stenosis s/p TAVR. Patient appeared to be hypovolemic as evidenced by his neck veins being flat, borderline hypotension, and absence of JVD or significant edema. This may be contributing to his anorexia and fatigue. Recommend continuing to hold diuretic while allowing more liberal sodium containing diet and encouraging oral intake -- which has allowed a positive fluid balance over the past 2 days. Recommend attempting to ambulate, if he has appropriate chronotropic response could continue current metoprolol dose, however if he has a blunted heart rate response could reduce metoprolol to 25 mg daily (would not eliminate metoprolol given his history of paroxysmal atrial fibrillation). Upon discharge to home would use a sliding scale diuretic regimen (none initially, restart diuretic for significant weight gain). Continue Aspirin 81 mg daily and Atorvastatin 80 mg daily. We will gladly see this patient in follow-up after discharge. Admission and Anticipated Discharge Date Admission Date: December 08, 2022 Supervising Physician Co-Signing Physician Notes ADDENDUM (Dr. Blake): Patient seen and examined. Agree with plan as outlined above by Mr. Gunner JOE. Subjective Mr. Snyder is sitting up at his bedside and getting cleaned up. He states that his breathing "isn't too bad today." He has stood up this morning and did not experience ant lightheadedness or near-syncope. Appetite remains poor overall but his fluid and salt restrictions have loosened up and he has had a positive fluid balance over the past 2 days. This will allow greater preload for his right sided CHF/Cor Pulmonale. He has severe MR although his severe has been remedied with a TAVR. He also complains of fatigue in general. He offers no other complaints. He denies any chest pain, heaviness, tightness, pressure, or discomfort. He denies any neck, jaw, back, or arm pain. He denies any palpitations or tachycardias to his knowledge. Review of Systems Review of Systems: -- 10 point ROS completed and is negative with the exception of what is mentioned in the HPI. Physical Exam Physical Exam: GENERAL: Patient in no acute distress. Bilateral hearing aids/cochlear implants present. HEENT: Head is atraumatic, normocephalic. EOM's intact. No perioral cyanosis. NECK: No JVD. JVP is not elevated. CHEST/LUNGS: Mildly diminished breath sounds throughout, otherwise clear. No wheezes, rales, or crackles. CVS: S1 and S2 are regular with with a grade 1/6 basal systolic murmur heard at the right 2nd intercostal space, and a grade 3/6 apical systolic murmur which radiates to the axilla. No obvious diastolic murmurs. No gallops or rubs. PMI is nonpalpable. No lifts, heaves, or thrills. No abdominal aortic or renal bruits. ABDOMINAL EXAM: Bowel sounds are present. No masses, organomegaly, or tenderness. EXTREMITIES: No clubbing or cyanosis. Trace bipedal edema. Intact radial pulses bilaterally. NEUROLOGIC EXAM: Patient is awake, alert, and oriented. Pleasant and cooperative. Answers questions appropriately. Speech is clear. Gait pattern was not assessed. Hand Carver: NSR with occasional ectopy. Results & Data Vital Signs (Past 12 Hours) Vital Signs Temp Pulse Pulse Resp BP Pulse Ox O2 Del Method 12/15/22 08:02 36.6 C 81 20 96/60 L 100 Nasal Cannula 12/15/22 07:15 Nasal Cannula 12/15/22 07:02 77 12/15/22 03:00 36.3 C L 62 19 92/59 L 95 Nasal Cannula 12/14/22 21:55 81 23 96 12/14/22 23:00 36.5 C 81 18 100/67 98 Nasal Cannula 12/14/22 23:34 79 12/14/22 21:44 81 101/72 O2 Flow Rate 12/15/22 08:02 4 12/15/22 07:15 1 12/15/22 07:02 12/15/22 03:00 12/14/22 21:55 2 12/14/22 23:00 12/14/22 23:34 12/14/22 21:44 Laboratory Results Laboratory Results - last 24 hr 12/10/22 12/11/22 12/11/22 14:56 06:39 Unknown WBC RBC Hgb Hct MCV MCH MCHC RDW Std Deviation RDW Coeff of Herrera Plt Count MPV Haptoglobin <8 L APTT PTT Ratio Sodium Potassium Chloride Carbon Dioxide Anion Gap BUN Creatinine Est Cr Clr Drug Dosing Est GFR ( Amer) Est GFR (Non-Af Amer) BUN/Creatinine Ratio Glucose Calcium Total Bilirubin AST ALT Alkaline Phosphatase Total Protein Albumin Globulin Albumin/Globulin Ratio Urine Hemosiderin Flow Cytometry Comment See Comment 12/15/22 12/15/22 12/15/22 05:49 05:49 05:49 WBC 5.02 RBC 3.66 L Hgb 11.7 L Hct 37.0 L MCV 101.1 H MCH 32.0 MCHC 31.6 L RDW Std Deviation 67.0 H RDW Coeff of Herrera 18.2 H Plt Count 135 MPV 12.1 Haptoglobin APTT 30.3 PTT Ratio 1.1 Sodium 137 Potassium 4.8 Chloride 104 Carbon Dioxide 25 Anion Gap 8 BUN 44 H Creatinine 1.91 H Est Cr Clr Drug Dosing 33.4 Est GFR ( Amer) 38.9 Est GFR (Non-Af Amer) 33.5 BUN/Creatinine Ratio 23.0 H Glucose 85 Calcium 9.5 Total Bilirubin 3.2 H AST 47 H ALT 51 Alkaline Phosphatase 141 H Total Protein 6.1 Albumin 3.5 Globulin 2.6 Albumin/Globulin Ratio 1.3 Urine Hemosiderin Flow Cytometry Comment Medications Administered Medications acetaminophen 500 mg tablet 1,000 mg PO TID PRN fever or pain #90 tabs 11/18/18 [Rx Confirmed 12/08/22] aspirin 81 mg tablet,delayed release 81 mg PO DAILY #90 tabs 06/09/22 [Rx Confirmed 12/08/22] metoprolol succinate 25 mg tablet,extended release 24 hr 12.5 mg PO QAM #30 tabs 08/22/22 [Rx Confirmed 12/08/22] Wheelchair (Manual) #1 ea 09/17/22 [Rx Confirmed 12/08/22] Oxygen Home #1 ea 10/12/22 [Rx Confirmed 12/08/22] atorvastatin 80 mg tablet 80 mg PO HS #90 tabs 11/05/22 [Rx Confirmed 12/08/22] bupropion HCl 150 mg 24 hr tablet, extended release (Wellbutrin XL) 150 mg PO QAM #90 tabs 11/05/22 [Rx Confirmed 12/08/22] fluticasone propionate 50 mcg/actuation nasal spray,suspension (Flonase Allergy Relief) 2 spray intranasal DAILY #48 grams 11/05/22 [Rx Confirmed 12/08/22] pantoprazole 40 mg tablet,delayed release 40 mg PO DAILY #90 tabs 11/05/22 [Rx Confirmed 12/08/22] paroxetine HCl 40 mg tablet 40 mg PO QAM #90 tabs 11/05/22 [Rx Confirmed 12/08/22] potassium chloride 20 mEq tablet,extended release 20 meq PO QAM #90 tabs 11/05/22 [Rx Confirmed 12/08/22] tamsulosin 0.4 mg capsule 0.4 mg PO HS #90 caps 11/05/22 [Rx Confirmed 12/08/22] furosemide 40 mg tablet (Lasix) 40 mg PO DAILY 11/09/22 [History Confirmed 12/08/22] loratadine 10 mg tablet 10 mg PO DAILY 11/09/22 [History Confirmed 12/08/22] Home Medications Apixaban (Apixaban 5 Mg Tablet) 5 mg PO BID [facility] Stop: 01/13/23 20:59 Last Admin: 12/15/22 07:21 Dose: 5 mg Aspirin (Aspirin 81 Mg Ectab) 81 mg PO DAILY [facility] Stop: 01/08/23 08:59 Last Admin: 12/15/22 07:24 Dose: 81 mg Atorvastatin Calcium (Atorvastatin 40 Mg Tab) 80 mg PO HS [facility] Stop: 01/07/23 22:16 Last Admin: 12/14/22 21:42 Dose: 80 mg Bupropion HCl (Bupropion Xl 150 Mg Tabcr) 150 mg PO QAM [facility] Stop: 01/08/23 08:59 Last Admin: 12/15/22 07:22 Dose: 150 mg Ciprofloxacin (Ciprofloxacin 500 Mg Tab) 500 mg PO BID [facility]; Protocol Stop: 12/15/22 20:59 Last Admin: 12/15/22 07:22 Dose: 500 mg Folic Acid (Folic Acid 1 Mg Tab) 1 mg PO QAM [facility] Stop: 01/11/23 08:59 Last Admin: 12/15/22 07:24 Dose: 1 mg Furosemide (Furosemide 40 Mg Tab) 40 mg PO DAILY [facility] Stop: 01/08/23 08:59 Loratadine (Loratadine 10 Mg Tab) 10 mg PO DAILY [facility] Stop: 01/08/23 08:59 Last Admin: 12/15/22 07:23 Dose: 10 mg Metoprolol Tartrate (Metoprolol Tartrate 25 Mg Tab) 25 mg PO BID [facility] Stop: 01/07/23 23:39 Last Admin: 12/15/22 07:21 Dose: Not Given Pantoprazole Sodium (Pantoprazole 40 Mg Tab) 40 mg PO DAILY [facility] Stop: 01/08/23 08:59 Last Admin: 12/15/22 07:23 Dose: 40 mg Paroxetine HCl (Paroxetine Hcl 20 Mg Tab) 40 mg PO QAM [facility] Stop: 01/08/23 08:59 Last Admin: 12/15/22 07:23 Dose: 40 mg Potassium Chloride (Potassium Chloride Crtab 20 Meq Tabcr) 20 meq PO QAM [facility] Stop: 01/08/23 08:59 Last Admin: 12/15/22 07:22 Dose: 20 meq Tamsulosin HCl (Tamsulosin Hcl 0.4 Mg Cap) 0.4 mg PO HS [facility] Stop: 01/07/23 22:16 Last Admin: 12/14/22 21:41 Dose: 0.4 mg PG Care Time/CCT Total # of Minutes Spent Total Time Spent with Patient: Total time spent is greater than 50% in coordination of care (as documented) at patient's floor/unit and/or counseling patient:26 C[place] [address] SUB INP/OBS CARE 3/50MIN Patient Type Established Medical Decision Making High Complexity Diagnoses Heart failure with mildly reduced ejection fraction (HFmrEF) I50.22 Pulmonary hypertension I27.20 Severe mitral regurgitation I34.0 S/p TAVR (transcatheter aortic valve replacement), bioprosthetic Z95.3 CAD (coronary artery disease) I25.10 Aneurysm, thoracic aortic I71.2 PAF (paroxysmal atrial fibrillation) I48.0 Time Spent (min) 52
[2022-12-15] MEDS: ATORVASTATIN 40 MG TAB PO SCH (20:10)
[2022-12-15] MEDS: TAMSULOSIN HCL 0.4 MG CAP PO SCH (20:10)
[2022-12-16 06:14] LABS: Hematocrit (blood only) 35.7 % (42.0-52.0); Hemoglobin 11.4 g/dl (14.0-18.0); Mean Corpuscular Hemoglobin 32.4 pg (25.0-34.0); Mean Corpuscular Hgb Conc 31.9 g/dL (32.0-36.0); Mean Corpuscular Volume 101.4 fL (80.0-100.0); Mean Platelet Volume 11.6 fL (9.4-12.4); Platelet Count 133 K/uL (130-400); RDW Coefficient of Variation 18.3 % (11.5-14.5); RDW Standard Deviation 66.5 fL (36.4-46.3); Red Blood Count 3.52 M/uL (4.70-6.10); White Blood Count 4.87 K/ul (4.8-10.8)
[2022-12-16 06:29] LABS: Albumin Globulin Ratio 1.4 (0.9-2); Albumin Level 3.4 gm/dl (3.4-5.0); BUN Creatinine Ratio 22.2 (10-20); Calcium 9.4 mg/dl (8.6-10.3); Creatinine Clr Calc Pharmacy 33.8 ml/min; Est GFR (African American) 39.3 ml/min; Globulin 2.5 gm/dl (2.5-4.0); Potassium 4.8 mmol/L (3.5-5.1); Total Protein 5.9 gm/dl (6.0-8.3)
--- NOTE | 2022-12-16 07:16 | Hospitalist Progress Note ---
Date of Service December 16, 2022 Assessment & Plan (1) Elevated LFTs: (2) Atrial fibrillation with rapid ventricular response: (3) S/p TAVR (transcatheter aortic valve replacement), bioprosthetic: (4) CHF (congestive heart failure): (5) BPH with obstruction/lower urinary tract symptoms: (6) Depression with anxiety: Plan Yimi is a 76 year old male with history of Paroxysmal A Fib, CHF (HFpEF), S/p TAVR, HTN, trigeminal neuralgia, BPH, CAD, pHTN, gout, chronic anticoagulation, depression, anxiety, glaucoma, osteoarthritis, and lumbar spinal stenosis who presented from PCP office for concerns of jaundice. Patient was found to have elevated LFTs and Bilirubin levels and was admitted for evaluation. Potential Acute on Chronic RHF w/ L HFpEF - Echo 12/12 w/ EF 45-50%, RV pressure/volume overload, severe MR, RVSP 50-60 mmHg, and moderate IVC dilation * Consistent with severe PulHTN, severe MR, Significant RHF 2/2 LHF - Persistent right heart dysfunction (Cor Pulmonale) contributing to elevated LFT and poor appetite (cardiac cachexia) - Extensive h/o occupational airway exposure of chemical and dust but CTA from this admission with no PF findings * Possibility of underlying lung disease contributing to cardiac status - BNP 12/12 elevated to 1613, Troponin 12/12 peaked at 84 (now downtrending) - Cardiology recommendation: * Continue diuretic hold, liberalize Na/fluid restriction to encourage increased preload * If blunted HR response with attempted ambulation could decrease Metoprolol dose * Planning sliding scale diuretics upon discharge and only reinstitute for significant weight gain * Heart failure clinic referral - Since continues to feel dizzy with any ambulation - will cut metoprolol to 12.5mgs to improve chronotropic response - follow response. BPH with obstruction/lower urinary tract symptoms: Urinary retention - PVR 290 - Continue tamsulosin - Consider finestaride trial if PVRs continue to be elevated - hesitant due to low sbp. - PVR each shift. Anorexia (Acute on Chronic) - Likely 2/2 cardiac cachexia in the setting of RHF/LHF - Upon discussion patient agreeable to attempt medication to improve his appetit e * Marinol 2.5 mg PO BID (1 hour before lunch and dinner) started 12/16 * Continue to follow Goals of care discussion - Considering extent of cardiovascular dysfunction and the overall impact * Discussed with family about poor [facility] prognosis. * Will continue further discussions - Palliative care consulted 12/13 with family support - Family noted need for home O2 and home wheel chair as patient unable to ambulate d/t dyspnea * PT/OT ordered - recommending safe for home with * Plan 2 step O2 before discharge * CM notified - placed new referral to [facility] following Atrial fibrillation with RVR: - Chronic paroxysmal AFib, with history of RVR - Now noted to be in NSR - Cardiology Consult: Metoprolol and anticoagulation * Transitioned to Eliquis 12/14 Acute on Chronic respiratory failure - Previously on Home O2 - Was needing 4L on admission, currently on room air Elevated LFTs: - Elevation of LFTs and Bilirubin level on admission (levels remain elevated 12/16, mild downtrend) - Imaging: CXR, Chest CTA, CTAP, US Liver - No sign of malignancy - GI Consult * EGD/EUS negative * Biliary stent placed d/t evidence of biliary sludge * Recommending removal of stent in 3 months - Ongoing poor appetite despite stent placement - 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 - If formal diagnosis needed - will need transjugular liver biopsy and pressure checks EVELYN on CKD 3 - Creatinine 1.66 on admission, baseline 1.4-1.5 - Elevated to 1.9 on 12/15, currently 1.8 12/16, suspect associated with low PO intake * Continue to encourage PO fluid and meals, removed Na and Fluid restriction * Avoiding IVF given significant HF Macrocytic Anemia/Poikilocytosis - Evidenced on peripheral smear 12/09 - Could not exclude myelodysplasia - Consultation to Hematology - following, complete BM bx results pending * Bone Marrow Chromosome analysis pending * Flow Cytometry: Normal S/p TAVR (transcatheter aortic valve replacement), bioprosthetic: - Recently performed on November 19 - he reports no change in his shortness of faby ath since this Code: DNR/DNI VTE Prophylaxis- Eliquis Diet- Regular Disposition- PCU/tele, plans to dc home with HH Admission and Anticipated Discharge Date Admission Date: December 08, 2022 Supervising Physician Co-Signing Physician Notes Resident Physician Supervision Note: I independently interviewed and examined the patient and verified the tobar history and physical, reviewed labs and image studies and agree with resident findings and care plan. Subjective 12/16: Yimi was sleeping upon arrival this AM. Upon awakening, patient denies any new symptoms, but continuse to note lack of interest in meals/lack of appetite. He notes that he is not experiencing nausea or abdominal pain. He notes continued dyspnea, especially with ambulation. But denies any associated chest pain, pleuritic pain, or headaches. Patient is notably lightheadeded upon standing, and occasionally at rest. Physical Exam Physical Exam: Gen: NAD, interactive, mild jaundice & scleral icterus (improved) HEENT: NCAT, supple, no JVD Resp:Non-labored, no wheezing/rhonchi/rales, lung sounds slightly diminished at bases CV:RRR, normal S1/S2, systolic murmur at RUSB, apical holosystolic murmur present (radiating to axilla) Abd: Soft, non-distended, no TTP, normoactive bowels, no masses Extr: 2+ dp bilaterally, trace edema Skin: No rashes lesions or erythema Results & Data Results & Data Vital Signs (Past 12 Hours) Vital Signs Temp Pulse Pulse Pulse Resp BP Pulse Ox 12/16/22 05:00 77 102/82 12/15/22 22:05 76 12/16/22 02:47 36.5 C 80 16 88/61 L 96 12/15/22 22:48 36.6 C 80 20 98/67 L 95 12/15/22 21:20 12/15/22 20:04 81 104/76 O2 Del Method O2 Flow Rate 12/16/22 05:00 12/15/22 22:05 12/16/22 02:47 Room Air 12/15/22 22:48 Nasal Cannula 2 12/15/22 21:20 Nasal Cannula 1 12/15/22 20:04 Resident Activity Tracking Resident Involvement: Resident Care Provided Care Provided: Adult Hospital Medicine
[2022-12-16] MEDS: FOLIC ACID 1 MG TAB PO SCH (08:54)
[2022-12-16] MEDS: PANTOprazole 40 MG TAB PO SCH (08:54)
[2022-12-16] MEDS: buPROPion XL 150 MG TABCR PO SCH (08:54)
[2022-12-16] MEDS: PARoxetine HCL 20 MG TAB PO SCH (08:54)
[2022-12-16] MEDS: LORATADINE 10 MG TAB PO SCH (08:55)
[2022-12-16] MEDS: ASPIRIN 81 MG ECTAB PO SCH (08:55)
[2022-12-16] MEDS: APIXABAN 5 MG TABLET PO SCH ×2 (08:55→20:33)
[2022-12-16] MEDS: POTASSIUM CHLORIDE CRTAB 20 MEQ TABCR PO SCH (08:56)
[2022-12-16] MEDS: METOPROLOL TARTRATE 25 MG TAB PO SCH ×2 (09:06→20:33)
--- NOTE | 2022-12-16 09:14 | Cardiology Progress Note ---
Date of Service December 16, 2022 Assessment & Plan (1) Heart failure with mildly reduced ejection fraction (HFmrEF): (2) Pulmonary hypertension: (3) Severe mitral regurgitation: (4) S/p TAVR (transcatheter aortic valve replacement), bioprosthetic: (5) CAD (coronary artery disease): (6) Aneurysm, thoracic aortic: (7) PAF (paroxysmal atrial fibrillation): Plan Mr. 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 Currently, his main underlying pathophysiology appears to be chronic severe right heart failure/pulmonary hypertension with current severe mitral regurgitation after recent resolution of severe aortic stenosis s/p TAVR. Patient still appears to be hypovolemic as evidenced by his neck veins being flat and absence of JVD or significant edema. Overall his blood pressure has improved and is running in the 100 to 110 mmHg range systolically, although he still has an occasional hypotensive reading. Recommend continuing to hold diuretic while allowing more liberal sodium containing diet and encouraging oral intake -- which has allowed a positive fluid balance over the past 2 days. According to the patient he was up and moving around in his room without significant dyspnea or any lightheadedness -- which would imply chronotropic competence. Continue Metoprolol Tartrate 25 mg b.i.d.. Upon discharge to home would recommend a sliding scale Lasix regimen (none initially, restart diuretic for significant weight gain). Continue Aspirin 81 mg daily, Atorvastatin 80 mg daily, and Eliquis 5 mg b.i.d.. We will see this patient in follow-up following his discharge from the hospital. Admission and Anticipated Discharge Date Admission Date: December 08, 2022 Supervising Physician Co-Signing Physician Notes ADDENDUM (Dr. Blake): Patient seen and examined. Agree with plan as outlined above by Mr. Gunner JOE. I spoke with the family yesterday ( and daughter), they understand that he has a chronic debilitating diagnosis from which he will not likely substantially recover, but also which may not progress rapidly and which may allow some limited but reasonable quality of life in the near term. Cardiology follow-up with Pal Martino PA-C/Dr. Gerald Paige as well as Corazon Meeks PA-C in heart failure clinic. Subjective Mr. Snyder is sitting up at his bedside and preparing to eat breakfast. His breathing "isn't too bad today" and he has been up and moving around in his room -- which he tolerated with only mild exertional dyspnea. He denies any lightheadedness or near-syncope. Appetite remains poor overall but his fluid and salt restrictions have loosened up and he has had a positive fluid balance over the past 3 days. This will allow greater preload for his right sided CHF/Cor Pulmonale. He has severe MR although his severe has been remedied with a TAVR. He also complains of fatigue in general. He denies any chest pain, heaviness, tightness, pressure, or discomfort. He denies any neck, jaw, back, or arm pain. He denies any palpitations or tachycardias to his knowledge. He did complain of some dyspnea overnight according to his nurse but his O2 saturations were = or > 94%. Patient was placed on O2 at 1 L/min via NC as a comfort measure. His LFT's are improving. Review of Systems Review of Systems: -- 10 point ROS completed and is negative with the exception of what is mentioned in the HPI. Physical Exam Physical Exam: Blood pressure is 106/71, pulse 89 bpm. GENERAL: Patient in no acute distress. Bilateral hearing aids/cochlear implants present. HEENT: Head is atraumatic, normocephalic. EOM's intact. No perioral cyanosis. NECK: No JVD. JVP is not elevated. CHEST/LUNGS: Mildly diminished breath sounds throughout, otherwise clear. No wheezes, rales, or crackles. CVS: S1 and S2 are regular with with a grade 1/6 basal systolic murmur heard at the right 2nd intercostal space, and a grade 3/6 apical systolic murmur which radiates to the axilla. No obvious diastolic murmurs. No gallops or rubs. PMI is nonpalpable. No lifts, heaves, or thrills. No abdominal aortic or renal bruits. ABDOMINAL EXAM: Bowel sounds are present. No masses, organomegaly, or tenderness. EXTREMITIES: No clubbing or cyanosis. Trace bipedal edema. Intact radial pulses bilaterally. NEUROLOGIC EXAM: Patient is awake, alert, and oriented. Pleasant and cooperative. Answers questions appropriately. Speech is clear. Gait pattern was not assessed. It Sales Representative: -- NSR at 86 bpm with ectopic beats. Results & Data Vital Signs (Past 12 Hours) Vital Signs Temp Pulse Pulse Pulse Resp BP Pulse Ox 12/16/22 07:39 102/60 12/16/22 07:26 36.7 C 79 20 82/57 L 96 12/16/22 05:00 77 102/82 12/15/22 22:05 76 12/16/22 02:47 36.5 C 80 16 88/61 L 96 12/15/22 22:48 36.6 C 80 20 98/67 L 95 12/15/22 21:20 O2 Del Method O2 Flow Rate 12/16/22 07:39 12/16/22 07:26 Room Air 12/16/22 05:00 12/15/22 22:05 12/16/22 02:47 Room Air 12/15/22 22:48 Nasal Cannula 2 12/15/22 21:20 Nasal Cannula 1 Laboratory Results Laboratory Results - last 24 hr 12/16/22 12/16/22 05:58 05:58 WBC 4.87 RBC 3.52 L Hgb 11.4 L Hct 35.7 L MCV 101.4 H MCH 32.4 MCHC 31.9 L RDW Std Deviation 66.5 H RDW Coeff of Herrera 18.3 H Plt Count 133 MPV 11.6 Sodium 138 Potassium 4.8 Chloride 106 Carbon Dioxide 25 Anion Gap 7 BUN 42 H Creatinine 1.89 H Est Cr Clr Drug Dosing 33.8 Est GFR ( Amer) 39.3 Est GFR (Non-Af Amer) 34.0 BUN/Creatinine Ratio 22.2 H Glucose 91 Calcium 9.4 Total Bilirubin 3.0 H AST 44 H ALT 48 Alkaline Phosphatase 136 H Total Protein 5.9 L Albumin 3.4 Globulin 2.5 Albumin/Globulin Ratio 1.4 Medications Administered Medications acetaminophen 500 mg tablet 1,000 mg PO TID PRN fever or pain #90 tabs 11/18/18 [Rx Confirmed 12/08/22] aspirin 81 mg tablet,delayed release 81 mg PO DAILY #90 tabs 06/09/22 [Rx Confirmed 12/08/22] metoprolol succinate 25 mg tablet,extended release 24 hr 12.5 mg PO QAM #30 tabs 08/22/22 [Rx Confirmed 12/08/22] Wheelchair (Manual) #1 ea 09/17/22 [Rx Confirmed 12/08/22] Oxygen Home #1 ea 10/12/22 [Rx Confirmed 12/08/22] atorvastatin 80 mg tablet 80 mg PO HS #90 tabs 11/05/22 [Rx Confirmed 12/08/22] bupropion HCl 150 mg 24 hr tablet, extended release (Wellbutrin XL) 150 mg PO QAM #90 tabs 11/05/22 [Rx Confirmed 12/08/22] fluticasone propionate 50 mcg/actuation nasal spray,suspension (Flonase Allergy Relief) 2 spray intranasal DAILY #48 grams 11/05/22 [Rx Confirmed 12/08/22] pantoprazole 40 mg tablet,delayed release 40 mg PO DAILY #90 tabs 11/05/22 [Rx Confirmed 12/08/22] paroxetine HCl 40 mg tablet 40 mg PO QAM #90 tabs 11/05/22 [Rx Confirmed 12/08/22] potassium chloride 20 mEq tablet,extended release 20 meq PO QAM #90 tabs 11/05/22 [Rx Confirmed 12/08/22] tamsulosin 0.4 mg capsule 0.4 mg PO HS #90 caps 11/05/22 [Rx Confirmed 12/08/22] furosemide 40 mg tablet (Lasix) 40 mg PO DAILY 11/09/22 [History Confirmed 12/08/22] loratadine 10 mg tablet 10 mg PO DAILY 11/09/22 [History Confirmed 12/08/22] Home Medications Apixaban (Apixaban 5 Mg Tablet) 5 mg PO BID [facility] Stop: 01/13/23 20:59 Last Admin: 12/16/22 08:55 Dose: 5 mg Aspirin (Aspirin 81 Mg Ectab) 81 mg PO DAILY [facility]O Stop: 01/08/23 08:59 Last Admin: 12/16/22 08:55 Dose: 81 mg Atorvastatin Calcium (Atorvastatin 40 Mg Tab) 80 mg PO HS [facility] Stop: 01/07/23 22:16 Last Admin: 12/15/22 20:10 Dose: 80 mg Bupropion HCl (Bupropion Xl 150 Mg Tabcr) 150 mg PO QAM [facility] Stop: 01/08/23 08:59 Last Admin: 12/16/22 08:54 Dose: 150 mg Folic Acid (Folic Acid 1 Mg Tab) 1 mg PO QAM [facility] Stop: 01/11/23 08:59 Last Admin: 12/16/22 08:54 Dose: 1 mg Furosemide (Furosemide 40 Mg Tab) 40 mg PO DAILY [facility] Stop: 01/08/23 08:59 Loratadine (Loratadine 10 Mg Tab) 10 mg PO DAILY [facility] Stop: 01/08/23 08:59 Last Admin: 12/16/22 08:55 Dose: 10 mg Metoprolol Tartrate (Metoprolol Tartrate 25 Mg Tab) 25 mg PO BID [facility] Stop: 01/07/23 23:39 Last Admin: 12/16/22 09:06 Dose: 25 mg Pantoprazole Sodium (Pantoprazole 40 Mg Tab) 40 mg PO DAILY [facility] Stop: 01/08/23 08:59 Last Admin: 12/16/22 08:54 Dose: 40 mg Paroxetine HCl (Paroxetine Hcl 20 Mg Tab) 40 mg PO QAM [facility] Stop: 01/08/23 08:59 Last Admin: 12/16/22 08:54 Dose: 40 mg Potassium Chloride (Potassium Chloride Crtab 20 Meq Tabcr) 20 meq PO QAM [facility] Stop: 01/08/23 08:59 Last Admin: 12/16/22 08:56 Dose: 20 meq Tamsulosin HCl (Tamsulosin Hcl 0.4 Mg Cap) 0.4 mg PO HS [facility] Stop: 01/07/23 22:16 Last Admin: 12/15/22 20:10 Dose: 0.4 mg PG Care Time/CCT Total # of Minutes Spent Total Time Spent with Patient: Total time spent is greater than 50% in coordination of care (as documented) at patient's floor/unit and/or counseling patient:28 [place] [address] SUB INP/OBS CARE 3/50MIN Patient Type Established Medical Decision Making High Complexity Diagnoses Heart failure with mildly reduced ejection fraction (HFmrEF) I50.22 Pulmonary hypertension I27.20 Severe mitral regurgitation I34.0 S/p TAVR (transcatheter aortic valve replacement), bioprosthetic Z95.3 CAD (coronary artery disease) I25.10 Aneurysm, thoracic aortic I71.2 PAF (paroxysmal atrial fibrillation) I48.0 Time Spent (min) 52
[2022-12-16] MEDS: droNABinol 2.5 MG CAP PO SCH (16:33)
[2022-12-16] MEDS: TAMSULOSIN HCL 0.4 MG CAP PO SCH (20:33)
[2022-12-16] MEDS: ATORVASTATIN 40 MG TAB PO SCH (20:33)
[2022-12-17 06:37] LABS: Hematocrit (blood only) 36.1 % (42.0-52.0); Hemoglobin 11.5 g/dl (14.0-18.0); Mean Corpuscular Hemoglobin 32.4 pg (25.0-34.0); Mean Corpuscular Hgb Conc 31.9 g/dL (32.0-36.0); Mean Corpuscular Volume 101.7 fL (80.0-100.0); Mean Platelet Volume 11.6 fL (9.4-12.4); Platelet Count 132 K/uL (130-400); RDW Coefficient of Variation 18.2 % (11.5-14.5); RDW Standard Deviation 67.4 fL (36.4-46.3); Red Blood Count 3.55 M/uL (4.70-6.10); White Blood Count 4.86 K/ul (4.8-10.8)
[2022-12-17 06:52] LABS: Albumin Globulin Ratio 1.2 (0.9-2); Albumin Level 3.5 gm/dl (3.4-5.0); BUN Creatinine Ratio 22.5 (10-20); Bilirubin,Total 3.4 mg/dl (0.2-1.0); Calcium 9.6 mg/dl (8.6-10.3); Creatinine Clr Calc Pharmacy 35.1 ml/min; Est GFR (African American) 41.2 ml/min; Est GFR (Non-African American) 35.5 ml/min; Globulin 2.9 gm/dl (2.5-4.0); Potassium 4.7 mmol/L (3.5-5.1); Total Protein 6.4 gm/dl (6.0-8.3)
--- NOTE | 2022-12-17 07:54 | Hospitalist Progress Note ---
Date of Service December 17, 2022 Assessment & Plan (1) Elevated LFTs: (2) Atrial fibrillation with rapid ventricular response: (3) S/p TAVR (transcatheter aortic valve replacement), bioprosthetic: (4) CHF (congestive heart failure): (5) BPH with obstruction/lower urinary tract symptoms: (6) Depression with anxiety: Plan Yimi is a 76 year old male with history of Paroxysmal A Fib, CHF (HFpEF), S/p TAVR, HTN, trigeminal neuralgia, BPH, CAD, pHTN, gout, chronic anticoagulation, depression, anxiety, glaucoma, osteoarthritis, and lumbar spinal stenosis who presented from PCP office for concerns of jaundice. Patient was found to have elevated LFTs and Bilirubin levels and was admitted for evaluation. Potential Acute on Chronic RHF w/ L HFpEF - Echo 12/12 w/ EF 45-50%, RV pressure/volume overload, severe MR, RVSP 50-60 mmHg, and moderate IVC dilation * Consistent with severe PulHTN, severe MR, Significant RHF 2/2 LHF - Extensive h/o occupational airway exposure of chemical and dust but CTA from this admission with no PF findings * Possibility of underlying lung disease contributing to cardiac status - Cardiology recommendation: * Continue diuretic hold, liberalize Na/fluid restriction to encourage increased preload * If blunted HR response with attempted ambulation could decrease Metoprolol dose * Planning sliding scale diuretics upon discharge and only reinstitute for significant weight gain * Heart failure clinic referral - Decreased Metoprolol to 12.5 mg to improve chronotropic response * Patient endorses improvement in dizziness/lightheadedness in AM * Continues to require O2 support with ambulation BPH with obstruction/lower urinary tract symptoms: Urinary retention - PVR 290 - Continue tamsulosin - Continues to have high PVR. - Limiting adding meds with BP being low. - Outpatient urology referral recommended. Anorexia (Acute on Chronic) - Likely 2/2 cardiac cachexia in the setting of RHF/LHF - Upon discussion patient agreeable to attempt medication to improve his appetite * Marinol 2.5 mg PO BID (1 hour before lunch and dinner) started 12/16 * 12/17 patient and family noting improved appetite, continue Marinol Goals of care discussion - Considering extent of cardiovascular dysfunction and the overall impact * Discussed with family about poor [facility] prognosis. * Will continue further discussions - Palliative care consulted 7/23 with family support - Family noted need for home O2 and home wheel chair as patient unable to ambulate d/t dyspnea * PT/OT evaluated - recommending safe for home with HH, scheduled for Wednesday * 2 Step completed - patient stable on room air at rest, requires 2L w/ ambulation * Rx for Home O2 completed - pending delivery tomorrow * CM following Atrial fibrillation with RVR: - Chronic paroxysmal AFib, with history of RVR - Now noted to be in NSR - Cardiology Consult: Metoprolol and anticoagulation * Transitioned to Eliquis 12/14 Acute on Chronic respiratory failure - Not previously on O2 at home - Was needing 4L on admission, currently on room air at rest/2L with ambulation - Rx completed for home O2 upon discharge Elevated LFTs: - Elevation of LFTs and Bilirubin level on admission (levels remain elevated 12/17) - Imaging: CXR, Chest CTA, CTAP, US Liver - No sign of malignancy - GI Consult * EGD/EUS negative * Biliary stent placed d/t evidence of biliary sludge * Recommending removal of stent in 3 months - Ongoing poor appetite despite stent placement - 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 - If formal diagnosis needed - will need transjugular liver biopsy and pressure checks EVELYN on CKD 3 - Creatinine 1.66 on admission, baseline 1.4-1.5 - Elevated to 1.9 on 12/15, currently 1.8 12/17, suspect associated with low PO intake * Continue to encourage PO fluid and meals, removed Na and Fluid restriction * Avoiding IVF given significant HF Macrocytic Anemia/Poikilocytosis - Evidenced on peripheral smear 12/09 - Could not exclude myelodysplasia - Consultation to Hematology - following, complete BM bx results pending * Bone Marrow Chromosome analysis pending * Flow Cytometry: Normal S/p TAVR (transcatheter aortic valve replacement), bioprosthetic: - Recently performed on November 19 - he reports no change in his shortness of breath since this Code: DNR/DNI VTE Prophylaxis- Eliquis Diet- Regular Disposition- PCU/tele, plans to dc home with HH Admission and Anticipated Discharge Date Admission Date: December 08, 2022 Supervising Physician Co-Signing Physician Notes Resident Physician Supervision Note: I independently interviewed and examined the patient and verified the tobar history and physical, reviewed labs and image studies and agree with resident findings and care plan. Subjective 12/17: Yimi was sitting at bedside upon arrival eating his breakfast. He notes improved appetite today and is pleased. He denies any nausea, emesis, or abdominal discomfort. Patient notes that his dyspnea remains, but his lightheadedness is improved. He continues to deny chest pain, pleuritic pain, or headaches. Today, patient note that he is feeling ready to go home. Physical Exam Physical Exam: Gen: NAD, interactive, mild jaundice & scleral icterus (improved) HEENT: NCAT, supple, no JVD Resp:Non-labored, no wheezing/rhonchi/rales, lung sounds slightly diminished at bases CV:RRR, normal S1/S2, systolic murmur at RUSB, apical holosystolic murmur present (radiating to axilla) Abd: Soft, non-distended, no TTP, normoactive bowels, no masses Extr: 2+ dp bilaterally, trace edema Skin: No rashes lesions or erythema Results & Data Results & Data Vital Signs (Past 12 Hours) Vital Signs Temp Pulse Pulse Pulse Resp BP Pulse Ox 12/16/22 23:00 79 12/17/22 03:27 36.6 C 75 18 102/66 96 12/16/22 23:50 12/16/22 22:47 36.7 C 86 18 105/64 98 O2 Del Method O2 Flow Rate 12/16/22 23:00 12/17/22 03:27 Room Air 12/16/22 23:50 Nasal Cannula 1 12/16/22 22:47 Room Air Resident Activity Tracking Resident Involvement: Resident Care Provided Care Provided: Adult [facility] Medicine
[2022-12-17] MEDS: METOPROLOL TARTRATE 25 MG TAB PO SCH ×2 (08:03→20:48)
[2022-12-17] MEDS: FOLIC ACID 1 MG TAB PO SCH (08:04)
[2022-12-17] MEDS: ASPIRIN 81 MG ECTAB PO SCH (08:06)
[2022-12-17] MEDS: LORATADINE 10 MG TAB PO SCH (08:06)
[2022-12-17] MEDS: APIXABAN 5 MG TABLET PO SCH ×2 (08:07→20:48)
[2022-12-17] MEDS: buPROPion XL 150 MG TABCR PO SCH (08:07)
[2022-12-17] MEDS: PARoxetine HCL 20 MG TAB PO SCH (08:07)
[2022-12-17] MEDS: PANTOprazole 40 MG TAB PO SCH (08:07)
[2022-12-17] MEDS: POTASSIUM CHLORIDE CRTAB 20 MEQ TABCR PO SCH (10:12)
[2022-12-17] MEDS: droNABinol 2.5 MG CAP PO SCH ×2 (12:43→17:48)
[2022-12-17] MEDS: TAMSULOSIN HCL 0.4 MG CAP PO SCH (20:48)
[2022-12-17] MEDS: ATORVASTATIN 40 MG TAB PO SCH (20:48)
--- NOTE | 2022-12-18 05:02 | Hospitalist Progress Note ---
Date of Service December 18, 2022 Assessment & Plan (1) Red blood cell abnormality: Plan: Moderate elevation of LDH, absent haptoglobin, and positive urine hemosiderin certainly do suggest an element of physical shear of red blood cells contributing to the morphological changes. Hemoglobin is stable, reticulocyte dramatically elevated, and creatinine is stable. This process seems to be reasonably well compensated and probably does not reflect TTP but rather physical changes across his abnormal cardiac valves. Ongoing folic acid supplementation would be prudent. Bone marrow still pending and we certainly need to follow-up on the results of that but his CBC status remains stable and this would not be an emergent requirement. I will have him scheduled to see us as an outpatient for further review Plan From hematology standpoint he remains stable. Has adequate iron levels, as above should be discharged on long-term folic acid supplementation, we will arrange for outpatient follow-up. I will "sign off" but we are available for any additional questions that arise during his hospitalization Admission and Anticipated Discharge Date Admission Date: December 08, 2022 Subjective Feeling relatively well Physical Exam Physical Exam: Vital signs stable Exams stable Results & Data Results & Data Vital Signs (Past 12 Hours) Vital Signs Temp Pulse Pulse Resp BP BP Pulse Ox 12/18/22 03:11 36.4 C L 85 16 105/73 92 12/18/22 00:54 89 12/17/22 23:00 36.5 C 92 H 20 103/73 100 12/17/22 20:15 12/17/22 20:47 97/73 L 12/17/22 19:00 36.7 C 103 H 18 91/40 L 94 12/17/22 17:25 75 O2 Del Method O2 Flow Rate 12/18/22 03:11 Nasal Cannula 2 12/18/22 00:54 12/17/22 23:00 Nasal Cannula 12/17/22 20:15 Nasal Cannula 1 12/17/22 20:47 12/17/22 19:00 Nasal Cannula 12/17/22 17:25 Laboratory Results Laboratory Results - last 24 hr 12/17/22 12/17/22 05:49 05:49 WBC 4.86 RBC 3.55 L Hgb 11.5 L Hct 36.1 L MCV 101.7 H MCH 32.4 MCHC 31.9 L RDW Std Deviation 67.4 H RDW Coeff of Herrera 18.2 H Plt Count 132 MPV 11.6 Sodium 136 Potassium 4.7 Chloride 104 Carbon Dioxide 24 Anion Gap 8 BUN 41 H Creatinine 1.82 H Est Cr Clr Drug Dosing 35.1 Est GFR ( Amer) 41.2 Est GFR (Non-Af Amer) 35.5 BUN/Creatinine Ratio 22.5 H Glucose 83 Calcium 9.6 Total Bilirubin 3.4 H AST 46 H ALT 48 Alkaline Phosphatase 142 H Total Protein 6.4 Albumin 3.5 Globulin 2.9 Albumin/Globulin Ratio 1.2 PG Care Time/CCT Total # of Minutes Spent Total Time Spent with Patient: Total time spent is greater than 50% in coordination of care (as documented) at patient's floor/unit and/or counseling patient: Coding Level of Care Code 90586 SUB INP/OBS CARE 06/17MIN Diagnoses Red blood cell abnormality R71.8
[2022-12-18 07:00] LABS: Albumin Globulin Ratio 1.3 (0.9-2); Albumin Level 3.5 gm/dl (3.4-5.0); BUN Creatinine Ratio 22.4 (10-20); Bilirubin,Total 3.1 mg/dl (0.2-1.0); Calcium 9.5 mg/dl (8.6-10.3); Creatinine Clr Calc Pharmacy 34.9 ml/min; Est GFR (African American) 40.9 ml/min; Est GFR (Non-African American) 35.3 ml/min; Globulin 2.8 gm/dl (2.5-4.0); Potassium 4.3 mmol/L (3.5-5.1); Total Protein 6.3 gm/dl (6.0-8.3)
--- NOTE | 2022-12-18 07:47 | Discharge Summary ---
Date of Service December 18, 2022 Admission HPI Per Admitting Provider Yimi Snyder is a 76 year old male who presents to the ER PCP concerned about color of skin. He recently had a TAVR on November 19 due to severe aortic stenosis after recently hospitalization for shortness of breath. He reports ongoing shortness of breath although this is no different today from last week. No chest pain. Main concern from PCP was worsening LFTs and jaundice. The pain reports stomach feeling "sour" after eating in his epigastric area. He has been getting weaker as eating and drinking less since this brings on this feeling. He denies pain. No change in bowels, melena, hematocheszia, nausea or vomiting. He reports not taking his medications this morning but took them all yesterday. Associated dizziness when standing and taking his time to get his bearings. Admission Exam Per Admitting Provider Constitutional: WD/WN, vitals as above ENMT: external ear and nose normal, oropharynx normal Respiratory: normal respiratory effort, lungs clear to auscultation Cardiovascular: Rate/Rhythm: + tachycardic and + irregularly irregular Heart Sounds: no murmur Extremities: normal capillary refill and + pedal edema; no calf tenderness Gastrointestinal (Abdomen): Percussion/Palpation: + abdomen tender (epigastric) and abdomen soft; no guarding and abdomen not rigid Musculoskeletal: no cyanosis or clubbing, extremities motor strength 5/5 Skin: no rashes, warm and dry Neurologic: moves all extremities and awake; not confused Psychiatric: A+Ox3, euthymic affect Genitourinary: no CVA tenderness Principal Diagnosis Atrial Fibrillation w/ RVR Heart Failure Failure to Thrive Discharge Exam Gen: NAD, interactive, mild jaundice & scleral icterus (improved) HEENT: NCAT, supple, no JVD Resp:Non-labored, no wheezing/rhonchi/rales, lung sounds slightly diminished at bases CV:RRR, normal S1/S2, systolic murmur at RUSB, apical holosystolic murmur present (radiating to axilla) Abd: Soft, non-distended, no TTP, normoactive bowels, no masses Extr: 2+ dp bilaterally, trace edema Skin: No rashes lesions or erythema Discharge Data Allergies Allergy/AdvReac Type Severity Reaction Status Date / Time baclofen Allergy Unknown PT & PT'S Verified 12/08/22 20:11 SPOUSE DENIES ANY ALLERGIES OR SENSATIVITY TO MED cyclobenzaprine Allergy Unknown PT & PT'S Verified 12/08/22 20:11 [From Flexeril] SPOUSE DENIES ANY ALLERGIES OR SENSATIVITY TO MED doxazosin Allergy Unknown PT & PT'S Verified 12/08/22 20:11 SPOUSE DENIES ANY ALLERGIES OR SENSATIVITY TO MED doxycycline Allergy Unknown PT & PT'S Verified 12/08/22 20:11 SPOUSE DENIES ANY ALLERGIES OR SENSATIVITY TO MED duloxetine Allergy Unknown PT & PT'S Verified 12/08/22 20:11 SPOUSE DENIES ANY ALLERGIES OR SENSATIVITY TO MED gabapentin Allergy Unknown PT & PT'S Verified 12/08/22 20:11 SPOUSE DENIES ANY ALLERGIES OR SENSATIVITY TO MED lisinopril Allergy Unknown PT & PT'S Verified 12/08/22 20:11 SPOUSE DENIES ANY ALLERGIES OR SENSATIVITY TO MED naproxen Allergy Unknown PT & PT'S Verified 12/08/22 20:11 SPOUSE DENIES ANY ALLERGIES OR SENSATIVITY TO MED nortriptyline [From Pamelor] Allergy Unknown PT & PT'S Verified 12/08/22 20:11 SPOUSE DENIES ANY ALLERGIES OR SENSATIVITY TO MED oxcarbazepine Allergy Unknown PT & PT'S Verified 12/08/22 20:11 SPOUSE DENIES ANY ALLERGIES OR SENSATIVITY TO MED Penicillins Allergy Unknown PT & PT'S Verified 12/08/22 20:11 SPOUSE DENIES ANY ALLERGIES OR SENSATIVITY TO MED Consultations 12/08/22 18:50 ED Decision to Admit Stat 12/08/22 23:39 Consult Cardiology Routine 12/08/22 23:41 Consult General Surgery Routine 12/09/22 07:20 Consult Gastroenterology Routine 12/10/22 09:05 Consult Hematology Routine 12/13/22 17:26 Consult Palliative Care Routine Procedures Performed Operation Date: 12/11/22 13:10 Actual Procedures p Endoscopic Ultrasonography Upper - Tracey Mcconnell MD s Endoscopic Retrograde Cholangiopancreatography - Tracey Mcconnell MD p Esophagogastroduodenoscopy - Tracey Mcconnell MD Ordered Studies 12/08/22 18:31 CT Abd and Pelvis [CT abd pelvis IV con only] Stat CT angio chest PE protocol Stat 12/09/22 US liver Routine US venous doppler LE RT Routine 12/10/22 11:47 IR bone marrow bx & asp Urgent 12/11/22 FL ERCP biliary ductal Routine 12/11/22 10:31 US upper EUS PACS images Routine Hospital Course (1) Elevated LFTs: (2) Atrial fibrillation with rapid ventricular response: (3) S/p TAVR (transcatheter aortic valve replacement), bioprosthetic: (4) CHF (congestive heart failure): (5) BPH with obstruction/lower urinary tract symptoms: (6) Depression with anxiety: Fannie Geller is a 76 year old male with history of Paroxysmal A Fib, CHF (HFpEF), S/p TAVR, HTN, trigeminal neuralgia, BPH, CAD, pHTN, gout, chronic anticoagulation, depression, anxiety, glaucoma, osteoarthritis, and lumbar spinal stenosis who presented from PCP office for concerns of jaundice. Patient was found to have elevated LFTs and Bilirubin levels and was admitted for evaluation. Potential Acute on Chronic RHF w/ L HFpEF - Echo 12/12 w/ EF 45-50%, RV pressure/volume overload, severe MR, RVSP 50-60 mmHg, and moderate IVC dilation * Consistent with severe PulHTN, severe MR, Significant RHF 2/2 LHF - Extensive h/o occupational airway exposure of chemical and dust but CTA from this admission with no PF findings * Possibility of underlying lung disease contributing to cardiac status - Cardiology recommendation: * Continue diuretic hold, liberalize Na/fluid restriction to encourage increased preload * If blunted HR response with attempted ambulation could decrease Metoprolol dose * Planning sliding scale diuretics upon discharge and only reinstitute for significant weight gain * Heart failure clinic referral - Decreased Metoprolol to 12.5 mg to improve chronotropic response * Patient endorses improvement in dizziness/lightheadedness in AM * Continued to require O2 support with ambulation BPH with obstruction/lower urinary tract symptoms: Urinary retention - multiple PVR above 50 - Continue tamsulosin - Continues to have high PVR. - Limiting adding meds with BP being low. - Outpatient urology referral recommended. Anorexia (Acute on Chronic) - Likely 2/2 cardiac cachexia in the setting of RHF/LHF - Upon discussion patient agreeable to attempt medication to improve his appetite * Marinol 2.5 mg PO BID (1 hour before lunch and dinner) started 12/16 * 12/17 patient and family noting improved appetite, continue Marinol and follow up outpatient * Rx sent Goals of care discussion - Considering extent of cardiovascular dysfunction and the overall impact * Discussed with family about poor co pilot prognosis. * Will continue further discussions - Palliative care consulted 12/13 with family support - Family noted need for home O2 and home wheel chair as patient unable to ambulate d/t dyspnea * PT/OT evaluated - recommending safe for home with HH, patient scheduled with Martinmeeileen on Wednesday * 2 Step completed - patient stable on room air at rest, requires 2L w/ ambulation * Rx for Home O2 completed - Home O2 delivered 12/18 Atrial fibrillation with RVR: - Chronic paroxysmal AFib, with history of RVR - In NSR during hospital stay - Cardiology Consult: Metoprolol and anticoagulation * Transitioned to Eliquis 12/14 Acute respiratory failure - Not previously on O2 at home - Was needing 4L on admission, currently on room air at rest/2L with ambulation - Rx completed for home O2 upon discharge Elevated LFTs: - Elevation of LFTs and Bilirubin level on admission (levels remain elevated 12/17) - Imaging: CXR, Chest CTA, CTAP, US Liver - No sign of malignancy - GI Consult * EGD/EUS negative * Biliary stent placed d/t evidence of biliary sludge * Recommending removal of stent in 3 months, patient to follow up outpatient with Gastroenterology - Ongoing poor appetite despite stent placement - 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 - If formal diagnosis needed - will need transjugular liver biopsy and pressure checks EVELYN on CKD 3 - Creatinine 1.66 on admission, baseline 1.4-1.5 - Elevated to 1.9 on 12/15, currently 1.8 12/18, suspect associated with low PO intake * Continue to encourage PO fluid and meals, removed Na and Fluid restriction * Avoided IVF given significant HF Macrocytic Anemia/Poikilocytosis - Evidenced on peripheral smear 12/09 - Could not exclude myelodysplasia - Consultation to Hematology - following, complete BM bx results pending * Bone Marrow Chromosome analysis pending * Flow Cytometry: Normal * Patient to follow up as outpatient with Hematology (Dr. Mcneal) S/p TAVR (transcatheter aortic valve replacement), bioprosthetic: - Recently performed on November 19 Code: DNR/DNI VTE Prophylaxis- Eliquis Diet- Regular Disposition- plans to dc home with HH Total Time Total Time Spent Total Time Spent (In Minutes): See attending attestation Discharge Plan Discharge Items Patient Disposition: Home - Home Health Services Reason For Visit: Yolanda JOSEPH Discharge Diagnosis: Heart Failure Activity: Per Instructions section Non-emergency contact: Primary Care Provider Call non-emergency contact if: you have any medication questions and your symptoms worsen Follow-up/Referrals: Nova Rousseau DO [Primary Care Provider] - 12/28/22 9:20 am Robin Sorensen DO [Physician] - 12/25/22 9:20 am Diet: Regular Addtl Attending Provider Instructions: You were admitted to the hospital for evaluation of elevated liver function tests and yellowing of the skin (as noticed outpatient by your primary care provider). During your admission, it was relayed that you had been experiencing a lack of appetite and weight loss over the last 6 months, and most significantly over the last month. An extensive work-up was performed to rule out malignancy and no evidence of solid tumors or liquid tumors were found. Gastroenterology placed a biliary stent in an effort to help with appetite and bile drainage, but this did not exhibit benefit over your time inpatient. Cardiology evaluated you inpatient and supported the assessment that your worsening lack of appetite is consistent with a diagnosis of heart failure, which has been present and progressing, for many years. It was noted that a significant portion of your symptoms are related to Mitral Valve Prolapse, but surgical intervention is not recommended. Efforts were made inpatient to mitigate your cardiac symptoms. You were started on oxygen therapy, with 2 L to be used while when not at rest. In addition, your dose of Metoprolol was decreased to 12.5 mg to encourage a stronger heart rate response upon standing. Your diet was liberalized such that you are no longer recommended to maintain a fluid or salt restriction. Finally, a medication called Marinol was added to help support your appetite, thus seemed to help significantly in the hospital, so you will be sent home with a prescription for the medication. Recommendations: - Follow up with PCP in 1 week (monitor Creatinine and Liver Function tests) - Follow up with Gastroenterology (as scheduled, will require stent removal in 3 months) - Follow up with Hematology (as scheduled) - Follow up with Cardiology (as scheduled) - Continue taking Marinol 2.5 mg, 1 hour before lunch and dinner to support appetite - Continue with regular diet and encourage adequate fluid intake (48-64 ounces of water daily) - Adjust Metoprolol dose to 12.5 mg by mouth twice daily (from 25 mg) - Continue to use oxygen support of 2 L when not at rest Pending Studies at Discharge: No Stand-Alone Forms: My simplifyMD, Smoking Cessation Medications and DC Order Prescriptions: New Eliquis 5 mg Tablet 5 mg PO BID 30 Days Qty: 60 0RF folic acid 1 mg Tablet 1 mg PO QAM 30 Days Qty: 30 0RF metoprolol tartrate 25 mg Tablet 12.5 mg PO BID 30 Days Qty: 30 0RF dronabinol [Marinol] 2.5 mg capsule 2.5 mg PO BID Qty: 28 0RF Rx Instructions: administer before lunch and evening meal/dinner Continued (DME) Wheelchair (Manual) Device See Rx Instructions .Route Qty: 1 0RF Rx Instructions: Standard Wheelchair, use as directed. atorvastatin 80 mg tablet 80 mg PO HS Qty: 90 1RF bupropion HCl [Wellbutrin XL] 150 mg tablet extended release 24 hr 150 mg PO QAM Qty: 90 3RF fluticasone propionate [Flonase Allergy Relief] 50 mcg/actuation spray,suspension 2 spray intranasal DAILY Qty: 48 1RF Rx Instructions: administer into each nostril pantoprazole 40 mg tablet,delayed release (DR/EC) 40 mg PO DAILY Qty: 90 2RF paroxetine HCl 40 mg tablet 40 mg PO QAM Qty: 90 1RF potassium chloride 20 mEq tablet extended release 20 meq PO QAM Qty: 90 1RF tamsulosin 0.4 mg capsule 0.4 mg PO HS Qty: 90 1RF (DME) Oxygen Home Liters Per Minute See Rx Instructions .ROUTE .MEDSUPPLY Qty: 1 0RF Rx Instructions: 2 liters oxygen blended into CPAP - use with sleep. aspirin 81 mg tablet,delayed release (DR/EC) 81 mg PO DAILY Qty: 90 3RF acetaminophen 500 mg tablet 1,000 mg PO TID PRN (Reason: fever or pain) Qty: 90 5RF furosemide [Lasix] 40 mg Tablet 40 mg PO DAILY loratadine 10 mg Tablet 10 mg PO DAILY metoprolol succinate 25 mg Tablet Extended Release 24 Hr 12.5 mg PO QAM Qty: 30 2RF Rx Instructions: for your heart Discharge Orders: Discharge Order- CHF (Routine); Ordered 12/18/22 Ordered By: Candy Yeung Admission Data Admit Date/Time: 12/08/22 20:49 Attending Provider: Keke Conti Admit Provider: Wilver Infante Primary Care Provider: Nova Rousseau Other Providers: Jet [facility] ; Wilver Infante ; Toñito Paige ; Robin Sorensen ; John Paul Munoz ; Adam Liao ; Yvette Stokes ; Funmilayo Shah ; Lisha Villalobos ; Niya Turpin ; Garrett Knapp ; Preston Giraldo ; Annelise Crooks ; Daniel Velásquez ; Bacilio Mays ; Inessa Núñez ; Gale Landeros ; Sharonda Poe ; Samantha Ojeda ; Tracey Mcconnell ; Estuardo Maya ; Mayito Vargas ; Arelis Obando ; Jose Simmons Jr ; Camille Vee ; Kevin Harkins ; Sarita Aguero ; Esther Nesbitt Other Interventions: Discharge Summary Assessment (RN) Last Done: 12/18/22 13:27 Supervising Physician Co-Signing Physician Notes Resident Physician Supervision Note: I independently interviewed and examined the patient and verified the tobar history and physical, reviewed labs and image studies and agree with resident findings and care plan. Resident Activity Tracking Resident Involvement: Resident Care Provided Care Provided: Adult [facility] Medicine
[2022-12-18] MEDS: APIXABAN 5 MG TABLET PO SCH (07:54)
[2022-12-18] MEDS: buPROPion XL 150 MG TABCR PO SCH (07:54)
[2022-12-18] MEDS: FOLIC ACID 1 MG TAB PO SCH (07:54)
[2022-12-18] MEDS: LORATADINE 10 MG TAB PO SCH (07:54)
[2022-12-18] MEDS: PANTOprazole 40 MG TAB PO SCH (07:55)
[2022-12-18] MEDS: ASPIRIN 81 MG ECTAB PO SCH (07:55)
[2022-12-18] MEDS: POTASSIUM CHLORIDE CRTAB 20 MEQ TABCR PO SCH (07:55)
[2022-12-18] MEDS: METOPROLOL TARTRATE 25 MG TAB PO SCH (07:55)
[2022-12-18] MEDS: PARoxetine HCL 20 MG TAB PO SCH (07:55)
[2022-12-18 09:15] LABS: Hematocrit (blood only) 35.8 % (42.0-52.0); Hemoglobin 11.5 g/dl (14.0-18.0); Mean Corpuscular Hemoglobin 32.3 pg (25.0-34.0); Mean Corpuscular Hgb Conc 32.1 g/dL (32.0-36.0); Mean Corpuscular Volume 100.6 fL (80.0-100.0); Mean Platelet Volume 12.1 fL (9.4-12.4); Platelet Count 143 K/uL (130-400); RDW Coefficient of Variation 17.9 % (11.5-14.5); RDW Standard Deviation 66.1 fL (36.4-46.3); Red Blood Count 3.56 M/uL (4.70-6.10); White Blood Count 6.57 K/ul (4.8-10.8)
--- NOTE | 2022-12-18 11:45 | Cardiology Progress Note ---
Date of Service December 18, 2022 Assessment & Plan (1) Heart failure with mildly reduced ejection fraction (HFmrEF): (2) Pulmonary hypertension: (3) Severe mitral regurgitation: (4) S/p TAVR (transcatheter aortic valve replacement), bioprosthetic: (5) CAD (coronary artery disease): (6) Aneurysm, thoracic aortic: (7) PAF (paroxysmal atrial fibrillation): Plan: See cardiology progress note of 12/13/2022 for detailed evaluation. Much of his recent fatigue was felt due to inadequate preload given his underlying cor pulmonale pathophysiology, he has gradually felt better off diuretics and should only restart diuretics if he has substantial weight gain and/or other compelling evidence of volume overload. As noted, medical management, no major procedural interventions planned. Admission and Anticipated Discharge Date Admission Date: December 08, 2022 Subjective Other than his hearing aids running out of batteries, no complaints. No chest pain, dyspnea, subjective palpitations, or lightheadedness. Telemetry showed sinus rhythm in the 80 bpm range. Physical Exam Physical Exam: No distress. Weight 182 pounds is about the same as his admission weight. BP low normal. Pulse 88 bpm and regular with frequent ectopy. Skin: no ecchymoses or generalized lesions. HEENT: unremarkable. Neck: JVP just above the clavicle at 90 degrees. Faint murmur transmitted to carotids. Lungs: Moderately decreased breath sounds with dullness at the bases, generally clear. No wheezing or accessory muscle use. Cardiac: regular rhythm with frequent ectopy, mildly diminished but audible aortic closure sound, 2/6 crescendo decrescendo systolic murmur right upper sternal border rating to the carotids, 4/6 apical holosystolic murmur rating to the axilla, no diastolic murmur. Abdomen: benign. Extremities: Trace pretibial edema, pulses intact. Neurologic: normal affect and conversation, grossly nonfocal. Results & Data Vital Signs (Past 12 Hours) Vital Signs Temp Pulse Pulse Resp BP Pulse Ox O2 Del Method 12/18/22 08:00 93 H 12/18/22 08:00 Nasal Cannula 12/18/22 08:11 97.9 F 110 H 18 112/72 97 Room Air 12/18/22 03:11 97.5 F L 85 16 105/73 92 Nasal Cannula 12/18/22 00:54 89 O2 Flow Rate 12/18/22 08:00 12/18/22 08:00 1 12/18/22 08:11 12/18/22 03:11 2 12/18/22 00:54 PG Care Time/CCT Total # of Minutes Spent Total Time Spent with Patient: Total time spent is greater than 50% in coordination of care (as documented) at patient's floor/unit and/or counseling patient: Coding Level of Care Code 96202 SUB INP/OBS CARE 06/17MIN Diagnoses Heart failure with mildly reduced ejection fraction (HFmrEF) I50.22 Pulmonary hypertension I27.20 Severe mitral regurgitation I34.0 S/p TAVR (transcatheter aortic valve replacement), bioprosthetic Z95.3 CAD (coronary artery disease) I25.10 Aneurysm, thoracic aortic I71.2 PAF (paroxysmal atrial fibrillation) I48.0
[2022-12-18] MEDS: droNABinol 2.5 MG CAP PO SCH (11:51)
== END 2022-12-18 14:25 | disposition home health service (06) | DRG 444 ==
LOC: ED 15:31 → 4W 20:49 → SUATTDRO 20:49 → 4W 21:36

== ENCOUNTER 2022-12-26 16:59 | Inpatient (IN) ==
--- NOTE | 2022-12-26 17:25 | Emergency Department Note ---
History of Present Illness General Chief complaint: Altered Mental Status Stated complaint: ALTERED MENTAL STATUS Time Seen by Provider: 12/26/22 17:16 Source: patient, EMS, RN notes reviewed and old records reviewed Mode of arrival: ambulatory Limitations: no limitations History of Present Illness This patient is a 77-year-old male who has a complex medical history including a TAVR procedure on November 19 as well as ERCP with stent placement on December 11 has been losing weight. Comes in after he has had weakness confusion shortness of breath and he was bleeding from his nose and potentially in his stools as well. He is on Eliquis. No known fall or trauma. His blood sugar was 113. According to the nurse who talked to the paramedics the family has been considering putting on hospice but has not yet. Home Medications Medication Instructions Recorded Confirmed Type acetaminophen 500 mg tablet 1,000 mg PO TID PRN fever or pain 11/18/18 12/26/22 Rx #90 tabs aspirin 81 mg tablet,delayed 81 mg PO DAILY #90 tabs 06/09/22 12/26/22 Rx release Wheelchair (Manual) #1 ea 09/17/22 12/26/22 Rx Oxygen Home #1 ea 10/12/22 12/26/22 Rx atorvastatin 80 mg tablet 80 mg PO HS #90 tabs 11/05/22 12/26/22 Rx bupropion HCl 150 mg 24 hr tablet, 150 mg PO QAM #90 tabs 11/05/22 12/26/22 Rx extended release (Wellbutrin XL) fluticasone propionate 50 2 spray intranasal DAILY #48 grams 11/05/22 12/26/22 Rx mcg/actuation nasal spray,suspension (Flonase Allergy Relief) pantoprazole 40 mg tablet,delayed 40 mg PO DAILY #90 tabs 11/05/22 12/26/22 Rx release paroxetine HCl 40 mg tablet 40 mg PO QAM #90 tabs 11/05/22 12/26/22 Rx potassium chloride 20 mEq 20 meq PO QAM #90 tabs 11/05/22 12/26/22 Rx tablet,extended release tamsulosin 0.4 mg capsule 0.4 mg PO HS #90 caps 11/05/22 12/26/22 Rx loratadine 10 mg tablet 10 mg PO DAILY 11/09/22 12/26/22 History apixaban 5 mg tablet (Eliquis) 5 mg PO BID 30 days #60 tabs 12/18/22 12/26/22 Rx dronabinol 2.5 mg capsule (Marinol) 2.5 mg PO BID #28 caps 12/18/22 12/26/22 Rx folic acid 1 mg tablet 1 mg PO QAM 30 days #30 tabs 12/18/22 12/26/22 Rx metoprolol tartrate 25 mg tablet 12.5 mg PO BID 30 days #30 tabs 12/18/22 12/26/22 Rx furosemide 20 mg tablet 20 mg PO QAM 12/26/22 12/26/22 History Allergies Allergy/AdvReac Type Severity Reaction Status Date / Time baclofen Allergy Unknown PT & PT'S Verified 12/08/22 20:11 SPOUSE DENIES ANY ALLERGIES OR SENSATIVITY TO MED cyclobenzaprine Allergy Unknown PT & PT'S Verified 12/08/22 20:11 [From Flexeril] SPOUSE DENIES ANY ALLERGIES OR SENSATIVITY TO MED doxazosin Allergy Unknown PT & PT'S Verified 12/08/22 20:11 SPOUSE DENIES ANY ALLERGIES OR SENSATIVITY TO MED doxycycline Allergy Unknown PT & PT'S Verified 12/08/22 20:11 SPOUSE DENIES ANY ALLERGIES OR SENSATIVITY TO MED duloxetine Allergy Unknown PT & PT'S Verified 12/08/22 20:11 SPOUSE DENIES ANY ALLERGIES OR SENSATIVITY TO MED gabapentin Allergy Unknown PT & PT'S Verified 12/08/22 20:11 SPOUSE DENIES ANY ALLERGIES OR SENSATIVITY TO MED lisinopril Allergy Unknown PT & PT'S Verified 12/08/22 20:11 SPOUSE DENIES ANY ALLERGIES OR SENSATIVITY TO MED naproxen Allergy Unknown PT & PT'S Verified 12/08/22 20:11 SPOUSE DENIES ANY ALLERGIES OR SENSATIVITY TO MED nortriptyline [From Pamelor] Allergy Unknown PT & PT'S Verified 12/08/22 20:11 SPOUSE DENIES ANY ALLERGIES OR SENSATIVITY TO MED oxcarbazepine Allergy Unknown PT & PT'S Verified 12/08/22 20:11 SPOUSE DENIES ANY ALLERGIES OR SENSATIVITY TO MED Penicillins Allergy Unknown PT & PT'S Verified 12/08/22 20:11 SPOUSE DENIES ANY ALLERGIES OR SENSATIVITY TO MED Past Med/Surg History Medical History Acute heart failure with preserved ejection fraction Aneurysm, thoracic aortic pt unaware of size, follows with Dr. Paige Aortic atherosclerosis Aortic stenosis, severe BPH with obstruction/lower urinary tract symptoms CAD (coronary artery disease) Cervical disc disease Chronic sinusitis Cognitive disorder Colitis Coronary artery calcification Depression with anxiety DVT (deep venous thrombosis) Dyslipidemia Encounter for pre-operative examination Glaucoma Hearing loss Hepatic steatosis History of central retinal vein occlusion Hypertension Iron deficiency Lower GI bleed no current issues Lumbar spinal stenosis Lymphopenia Mitral regurgitation MVP (mitral valve prolapse) Osteoarthritis PAC (premature atrial contraction) Palliative care encounter Pleural effusion on right Red blood cell abnormality Sleep apnea Trigeminal neuralgia received radiation for this, having numbess/tingling to right side of face since this Vitamin D deficiency Surgical History H/O cataract extraction (2013) H/O colonoscopy History of cochlear implant (01/12/12) BILATERAL History of pilonidal cyst removed History of umbilical hernia repair S/P foot surgery, right (12/2010) removal of heel spur S/P laser trabeculoplasty of eye (10/2014) b/l S/P nasal endoscopy with nasal polypectomy (2011) S/P rotator cuff repair b/l shoulders S/p TAVR (transcatheter aortic valve replacement), 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) Family History Mother No pertinent family history Other Hypertension Denies family history of Ovarian cancer Prostate cancer Diabetes Myocardial infarction Breast cancer Colorectal cancer Cancer Social History Smoking Status: Never smoker Tobacco Type: Cigarettes Second Hand Exposure: No; Do You Dip or Chew Tobacco: No; Hx Alcohol Use: No Hx Substance Use: No Preferred Language: Tajik Communication Ability: Effective Visual Impairment: No Limitations Hearing Ability: Cochlear Implant Top Lift Nailer Required: No Beliefs That Will Affect Care: None marital status: Current Living Situation: Spouse Current Living Situation Comment: with and daughter current occupational status: retired How many Children do You have: 1 Other Information That Helps Us Care for You: No Feels Safe at Home: Yes Safety Concerns: Feels Safe At This Time Childhood Exposure to Second-Hand Smoke: Yes Diet: regular Diet Comment: regular caffeine: Yes (Soda 6 per day. Coffee 1 cup per day.) during the past year weight has: remained stable Dental Care, Regularly: No Physical Activity Frequency: Daily Seatbelt Use: sometimes Sunscreen Use: No Assistive Devices: Cane, CPAP, Oxygen - at Night and Walker Review of Systems A total of 10 systems reviewed and were otherwise negative Physical Exam Vital Signs Vital Signs - 24 hr 12/26/22 17:19 12/26/22 17:45 12/26/22 17:45 Temperature 36.3 C L Temperature Source Oral Pulse Rate 88 79 Pulse Rate [Apical] Pulse Rhythm [Apical] Respiratory Rate 36 H Respiratory Effort / Characteristics Non-Labored Spontaneous Respiratory Depth Normal Respiratory Pattern Regular Blood Pressure 98/65 L Blood Pressure [Right Arm] Blood Pressure Mean 76 Blood Pressure Mean [Right Arm] Blood Pressure Position Lying Blood Pressure Position [Right Arm] Pulse Oximetry 98 98 Oxygen Delivery Method Room Air Room Air Sepsis Recent Fever Within 48 Hours No Sepsis New/Unexplained Change in Mental Status No Sepsis Action Taken by Nursing Physician Notified 12/26/22 18:45 12/26/22 19:04 12/26/22 20:00 Temperature Temperature Source Pulse Rate Pulse Rate [Apical] 96 H 80 78 Pulse Rhythm [Apical] Regular Irregular Irregular Respiratory Rate 35 H 24 23 Respiratory Effort / Characteristics Non-Labored Spontaneous Short of Breath Non-Labored Respiratory Depth Normal Normal Respiratory Pattern Regular Blood Pressure Blood Pressure [Right Arm] 116/78 112/59 L Blood Pressure Mean Blood Pressure Mean [Right Arm] 90 76 Blood Pressure Position Blood Pressure Position [Right Arm] Lying Pulse Oximetry 100 96 100 Oxygen Delivery Method Room Air Room Air Sepsis Recent Fever Within 48 Hours Sepsis New/Unexplained Change in Mental Status Sepsis Action Taken by Nursing 12/26/22 20:21 12/26/22 19:15 12/26/22 19:30 Temperature Temperature Source Pulse Rate Pulse Rate [Apical] 89 91 H Pulse Rhythm [Apical] Respiratory Rate 21 20 Respiratory Effort / Characteristics Respiratory Depth Respiratory Pattern Blood Pressure Blood Pressure [Right Arm] Blood Pressure Mean Blood Pressure Mean [Right Arm] Blood Pressure Position Blood Pressure Position [Right Arm] Pulse Oximetry 96 94 Oxygen Delivery Method Room Air Sepsis Recent Fever Within 48 Hours Sepsis New/Unexplained Change in Mental Status Sepsis Action Taken by Nursing 12/26/22 19:45 12/26/22 20:00 12/26/22 20:15 Temperature Temperature Source Pulse Rate Pulse Rate [Apical] 88 87 103 H Pulse Rhythm [Apical] Respiratory Rate 24 25 H 22 Respiratory Effort / Characteristics Respiratory Depth Respiratory Pattern Blood Pressure Blood Pressure [Right Arm] Blood Pressure Mean Blood Pressure Mean [Right Arm] Blood Pressure Position Blood Pressure Position [Right Arm] Pulse Oximetry 97 99 Oxygen Delivery Method Room Air Sepsis Recent Fever Within 48 Hours Sepsis New/Unexplained Change in Mental Status Sepsis Action Taken by Nursing 12/26/22 20:30 12/26/22 20:45 12/26/22 21:00 Temperature Temperature Source Pulse Rate Pulse Rate [Apical] 88 79 98 H Pulse Rhythm [Apical] Respiratory Rate 24 25 H 24 Respiratory Effort / Characteristics Respiratory Depth Respiratory Pattern Blood Pressure Blood Pressure [Right Arm] 104/60 105/77 Blood Pressure Mean Blood Pressure Mean [Right Arm] 74 86 Blood Pressure Position Blood Pressure Position [Right Arm] Pulse Oximetry 99 97 100 Oxygen Delivery Method Sepsis Recent Fever Within 48 Hours Sepsis New/Unexplained Change in Mental Status Sepsis Action Taken by Nursing 12/26/22 21:15 12/26/22 21:30 12/26/22 21:58 Temperature Temperature Source Pulse Rate 91 H Pulse Rate [Apical] 90 78 Pulse Rhythm [Apical] Respiratory Rate 26 H 24 Respiratory Effort / Characteristics Respiratory Depth Respiratory Pattern Blood Pressure Blood Pressure [Right Arm] Blood Pressure Mean Blood Pressure Mean [Right Arm] Blood Pressure Position Blood Pressure Position [Right Arm] Pulse Oximetry 99 100 Oxygen Delivery Method Sepsis Recent Fever Within 48 Hours Sepsis New/Unexplained Change in Mental Status Sepsis Action Taken by Nursing General: Well developed well nourished older chronically ill-appearing male who has his eyes closed he is hard of hearing but does open his eyes and respond in no acute distress, breathing comfortably on room air. Normal speech HEENT: Normal cephalic atraumatic. Pupils are equal round and reactive to light. Extraocular movements are intact. Oropharynx is pink with moist mucous membranes. No swelling of the mouth lips or tongue. Neck: Supple with a midline trachea. No meningeal signs or stiffness, no JVD or bruits. No Stridor. Chest: Clear to auscultation bilaterally. No wheezes or rhonchi. No increased work of breathing. Heart: Regular rate and rhythm without murmurs or gallops. Abdomen: Soft nontender, nondistended without rebound guarding or rigidity. Extremities: No cyanosis clubbing or edema. No calf tenderness or assymetry Spine/Back. Non tender to palpation. No CVA tenderness Skin: Good turgor without rashes. Neurologic exam: Cranial nerves two through 12 are intact. Motor and sensation are intact and symmetrical throughout. Course Administered Medications Sodium Chloride (Nss 1000ml) 1,000 mls @ 75 mls/hr IV .[id number] CHRISTIANO Stop: 12/28/22 01:09 Last Admin: 12/27/22 00:12 Dose: 75 mls/hr Documented By: JUN Pantoprazole Sodium 40 mg/ (Syringe) 10 mls @ 5 mls/min IV BID CHRISTIANO Stop: 01/25/23 23:47 Last Admin: 12/27/22 00:27 Dose: 5 mls/min Documented By: JUN Discontinued Medications Hydromorphone HCl (Hydromorphone Inj 0.5 Mg/0.5 Ml Syr) 0.25 mg IV NOW STA Stop: 12/27/22 00:34 Last Admin: 12/27/22 00:39 Dose: 0.25 mg Documented By: JUN Cefepime HCl 2,000 mg/ Syringe 20 mls @ 5 mls/min IV NOW STA; Protocol Stop: 12/26/22 18:05 Last Admin: 12/26/22 18:20 Dose: 5 mls/min Documented By: ROXANA Sodium Chloride (Nss 1000ml) 250 mls @ 999 mls/hr IV .Q16M ONE Stop: 12/26/22 18:26 Last Infusion: 12/26/22 18:44 Dose: 0 mls/hr Documented By: Admin: 12/26/22 18:20 Dose: 999 mls/hr Documented By: ROXANA Magnesium Sulfate/Dextrose (Magnesium Sulfate / D5w) 1 gm in 100 mls @ 50 mls/ hr IV ONE ONE Stop: 12/26/22 21:49 Last Infusion: 12/26/22 22:41 Dose: 0 mls/hr Documented By: Admin: 12/26/22 20:32 Dose: 50 mls/hr Documented By: ALEXANDRE Potassium Chloride (K Adis / Wtr) 10 meq in 100 mls @ 100 mls/hr IV Q1H CHRISTIANO Stop: 12/26/22 21:59 Last Infusion: 12/26/22 22:42 Dose: 0 mls/hr Documented By: Admin: 12/26/22 21:39 Dose: 100 mls/hr Documented By: Infusion: 12/26/22 21:38 Dose: 0 mls/hr Documented By: Admin: 12/26/22 20:32 Dose: 100 mls/hr Documented By: ALEXANDRE Acetaminophen (Ofirmev) 1,000 mg in 100 mls @ 400 mls/hr IV NOW STA Stop: 12/26/22 23:15 Last Infusion: 12/26/22 23:26 Dose: 0 mls/hr Documented By: Admin: 12/26/22 23:10 Dose: 400 mls/hr Documented By: ALEXANDRE Critical Care Time Critical Care Time: Yes Total Critical Care Time: 30 Due to the patient's altered mental status, complex medical history, need for extensive work-up discussion with the family and the consultants as well as IV antibiotics IV fluids and reassessment, I have personally spent greater than 30 minutes of critical care time in the direct management of this patient. This includes bedside care, interpretation of diagnostic studies, and testing, discussion with consultants, patient, and family members, and other required patient management activities. This 30 minutes is in excess of all separately billable procedures. Medical Decision Making Differential Diagnosis Sepsis, GI bleed, COPD, cardiac disease, CHF, electrolyte or metabolic abnormality, toxicologic, metabolic Medical Records Attestation: I reviewed the patient's medical records. Home Medications Current Medication List: was personally reviewed by ak Laboratory Data Attestation: I reviewed the patient's lab results. 12/26/22 17:34 12/26/22 17:34 Lab Results 12/26/22 12/26/22 12/26/22 Range/Units 17:34 17:34 17:34 WBC 6.94 (4.8-10.8) K/ul RBC 2.97 L (4.70-6.10) M/uL Hgb 9.8 L (14.0-18.0) g/dl POC Hgb (14.0-18.0) g/dl Hct 29.9 L (42.0-52.0) % POC Hct (42-52) % MCV 100.7 H (80.0-100.0) fL MCH 33.0 (25.0-34.0) pg MCHC 32.8 (32.0-36.0) g/dL RDW Std Deviation 67.9 H (36.4-46.3) fL RDW Coeff of Herrera 18.3 H (11.5-14.5) % Plt Count 192 (130-400) K/uL MPV 11.1 (9.4-12.4) fL Immature Gran % (Auto) 0.6 % Neut % (Auto) 81.1 % Lymph % (Auto) 9.9 % Dickson % (Auto) 6.2 % Eos % (Auto) 1.3 % Baso % (Auto) 0.9 % Neut # (Auto) 5.63 (1.40-6.50) K/uL Lymph # (Auto) 0.69 L (1.2-3.4) K/uL Dickson # (Auto) 0.43 (0.11-0.59) K/uL Eos # (Auto) 0.09 (0-0.50) K/uL Baso # (Auto) 0.06 (0-0.2) K/uL Immature Gran # (Auto) 0.04 (0.01-0.20) K/uL PT 13.5 H (9.0-12.0) Seconds INR 1.2 H (0.9-1.1) APTT 29.8 (21.0-31.0) Seconds PTT Ratio 1.1 D-Dimer (0-500) ug/L FEU VBG pH (7.36-7.41) VBG pCO2 (38-50) mmHg VBG pO2 mmHg VBG HCO3 mmol/L VBG O2 Saturation % VBG Base Excess mEq/L POC Sodium (135-144) mmol/L Sodium 139 (136-145) mmol/L POC Potassium (3.3-5.0) mmol/L Potassium 3.4 L (3.5-5.1) mmol/L POC Chloride (101-112) mmol/L Chloride 103 (98-107) mmol/L Carbon Dioxide 25 (21-32) mmol/L POC Total CO2 (24-31) mmol/L Anion Gap 11 (3-11) POC Anion Gap (16-25) mmol/L POC BUN (7-18) mg/dl BUN 53 H (6-23) mg/dl Creatinine 1.25 (0.6-1.4) mg/dl POC Creatinine (0.6-1.3) mg/dl Est Cr Clr Drug Dosing 52.1 ml/min Est GFR ( Amer) 64.9 ml/min Est GFR (Non-Af Amer) 56.0 ml/min BUN/Creatinine Ratio 42.4 H (10-20) Glucose 95 (70-99(Fasting)) mg/dl POC Glucose (other) (70-99) mg/dl Lactate (0.4-2.0) mmol/L Calcium 9.2 (8.6-10.3) mg/dl POC Ioniz Calcium Mary (1.12-1.32) mmol/l Magnesium 1.5 L (1.7-2.4) mg/dl Total Bilirubin 3.6 H (0.2-1.0) mg/dl Direct Bilirubin 1.3 H (0-0.2) mg/dl AST 41 H (13-39) U/L ALT 34 (7-52) U/L Alkaline Phosphatase 148 H (34-104) U/L Troponin I High Sens 53.8 H* (0-20) pg/ml B-Natriuretic Peptide (0-100) pg/ml Total Protein 6.4 (6.0-8.3) gm/dl Albumin 3.6 (3.4-5.0) gm/dl Vitamin B12 (180-914) pg/ml Folate (>5.38) ng/ml Procalcitonin (0-0.5) ng/ml Urine Color Urine Appearance (Clear) Urine pH (4.5-7.5) Ur Specific [place] (1.000-1.030) Urine Protein (Negative) Urine Glucose (UA) (Negative) Urine Ketones (Negative) Urine Blood (Negative) Urine Nitrite (Negative) Urine Bilirubin (Negative) Urine Urobilinogen (Negative) Ur Leukocyte Esterase (Negative) Urine WBC (Auto) (0-5) /hpf Urine RBC (Auto) (0-4) /hpf U Hyaline Cast (Auto) (0-5) /lpf U Epithel Cells (Auto) (0-5) /lpf Urine Bacteria (Auto) (Negative) POC Stool Occult Blood (Negative) Anaplasma Smear Babesia Smear Lyme Disease IgG Ab (Negative) Lyme Disease IgM Ab (Negative) SARS-CoV-2, RNA, NAAT (NEGATIVE) Blood Type Antibody Screen 12/26/22 12/26/22 12/26/22 Range/Units 17:34 17:34 17:34 WBC (4.8-10.8) K/ul RBC (4.70-6.10) M/uL Hgb (14.0-18.0) g/dl POC Hgb (14.0-18.0) g/dl Hct (42.0-52.0) % POC Hct (42-52) % MCV (80.0-100.0) fL MCH (25.0-34.0) pg MCHC (32.0-36.0) g/dL RDW Std Deviation (36.4-46.3) fL RDW Coeff of Herrera (11.5-14.5) % Plt Count (130-400) K/uL MPV (9.4-12.4) fL Immature Gran % (Auto) % Neut % (Auto) % Lymph % (Auto) % Dickson % (Auto) % Eos % (Auto) % Baso % (Auto) % Neut # (Auto) (1.40-6.50) K/uL Lymph # (Auto) (1.2-3.4) K/uL Dickson # (Auto) (0.11-0.59) K/uL Eos # (Auto) (0-0.50) K/uL Baso # (Auto) (0-0.2) K/uL Immature Gran # (Auto) (0.01-0.20) K/uL PT (9.0-12.0) Seconds INR (0.9-1.1) APTT (21.0-31.0) Seconds PTT Ratio D-Dimer (0-500) ug/L FEU VBG pH 7.44 H (7.36-7.41) VBG pCO2 41 (38-50) mmHg VBG pO2 18 mmHg VBG HCO3 28 mmol/L VBG O2 Saturation < 60.0 % VBG Base Excess 3.3 mEq/L POC Sodium (135-144) mmol/L Sodium (136-145) mmol/L POC Potassium (3.3-5.0) mmol/L Potassium (3.5-5.1) mmol/L POC Chloride (101-112) mmol/L Chloride (98-107) mmol/L Carbon Dioxide (21-32) mmol/L POC Total CO2 (24-31) mmol/L Anion Gap (3-11) POC Anion Gap (16-25) mmol/L POC BUN (7-18) mg/dl BUN (6-23) mg/dl Creatinine (0.6-1.4) mg/dl POC Creatinine (0.6-1.3) mg/dl Est Cr Clr Drug Dosing ml/min Est GFR ( Amer) ml/min Est GFR (Non-Af Amer) ml/min BUN/Creatinine Ratio (10-20) Glucose (70-99(Fasting)) mg/dl POC Glucose (other) (70-99) mg/dl Lactate 2.5 H* (0.4-2.0) mmol/L Calcium (8.6-10.3) mg/dl POC Ioniz Calcium Mary (1.12-1.32) mmol/l Magnesium (1.7-2.4) mg/dl Total Bilirubin (0.2-1.0) mg/dl Direct Bilirubin (0-0.2) mg/dl AST (13-39) U/L ALT (7-52) U/L Alkaline Phosphatase (34-104) U/L Troponin I High Sens (0-20) pg/ml B-Natriuretic Peptide (0-100) pg/ml Total Protein (6.0-8.3) gm/dl Albumin (3.4-5.0) gm/dl Vitamin B12 (180-914) pg/ml Folate (>5.38) ng/ml Procalcitonin 0.11 (0-0.5) ng/ml Urine Color Urine Appearance (Clear) Urine pH (4.5-7.5) Ur Specific [place] (1.000-1.030) Urine Protein (Negative) Urine Glucose (UA) (Negative) Urine Ketones (Negative) Urine Blood (Negative) Urine Nitrite (Negative) Urine Bilirubin (Negative) Urine Urobilinogen (Negative) Ur Leukocyte Esterase (Negative) Urine WBC (Auto) (0-5) /hpf Urine RBC (Auto) (0-4) /hpf U Hyaline Cast (Auto) (0-5) /lpf U Epithel Cells (Auto) (0-5) /lpf Urine Bacteria (Auto) (Negative) POC Stool Occult Blood (Negative) Anaplasma Smear Babesia Smear Lyme Disease IgG Ab (Negative) Lyme Disease IgM Ab (Negative) SARS-CoV-2, RNA, NAAT (NEGATIVE) Blood Type Antibody Screen 12/26/22 12/26/22 12/26/22 Range/Units 17:34 17:34 17:38 WBC (4.8-10.8) K/ul RBC (4.70-6.10) M/uL Hgb (14.0-18.0) g/dl POC Hgb 10.9 L (14.0-18.0) g/dl Hct (42.0-52.0) % POC Hct 32 L (42-52) % MCV (80.0-100.0) fL MCH (25.0-34.0) pg MCHC (32.0-36.0) g/dL RDW Std Deviation (36.4-46.3) fL RDW Coeff of Herrera (11.5-14.5) % Plt Count (130-400) K/uL MPV (9.4-12.4) fL Immature Gran % (Auto) % Neut % (Auto) % Lymph % (Auto) % Dickson % (Auto) % Eos % (Auto) % Baso % (Auto) % Neut # (Auto) (1.40-6.50) K/uL Lymph # (Auto) (1.2-3.4) K/uL Dickson # (Auto) (0.11-0.59) K/uL Eos # (Auto) (0-0.50) K/uL Baso # (Auto) (0-0.2) K/uL Immature Gran # (Auto) (0.01-0.20) K/uL PT (9.0-12.0) Seconds INR (0.9-1.1) APTT (21.0-31.0) Seconds PTT Ratio D-Dimer (0-500) ug/L FEU VBG pH (7.36-7.41) VBG pCO2 (38-50) mmHg VBG pO2 mmHg VBG HCO3 mmol/L VBG O2 Saturation % VBG Base Excess mEq/L POC Sodium 139 (135-144) mmol/L Sodium (136-145) mmol/L POC Potassium 3.4 (3.3-5.0) mmol/L Potassium (3.5-5.1) mmol/L POC Chloride 103 (101-112) mmol/L Chloride (98-107) mmol/L Carbon Dioxide (21-32) mmol/L POC Total CO2 23 L (24-31) mmol/L Anion Gap (3-11) POC Anion Gap 18.0 (16-25) mmol/L POC BUN 45 H (7-18) mg/dl BUN (6-23) mg/dl Creatinine (0.6-1.4) mg/dl POC Creatinine 1.2 (0.6-1.3) mg/dl Est Cr Clr Drug Dosing ml/min Est GFR ( Amer) ml/min Est GFR (Non-Af Amer) ml/min BUN/Creatinine Ratio (10-20) Glucose (70-99(Fasting)) mg/dl POC Glucose (other) 95 (70-99) mg/dl Lactate (0.4-2.0) mmol/L Calcium (8.6-10.3) mg/dl POC Ioniz Calcium Mary 1.11 L (1.12-1.32) mmol/l Magnesium (1.7-2.4) mg/dl Total Bilirubin (0.2-1.0) mg/dl Direct Bilirubin (0-0.2) mg/dl AST (13-39) U/L ALT (7-52) U/L Alkaline Phosphatase (34-104) U/L Troponin I High Sens (0-20) pg/ml B-Natriuretic Peptide 1091 H (0-100) pg/ml Total Protein (6.0-8.3) gm/dl Albumin (3.4-5.0) gm/dl Vitamin B12 (180-914) pg/ml Folate (>5.38) ng/ml Procalcitonin (0-0.5) ng/ml Urine Color Urine Appearance (Clear) Urine pH (4.5-7.5) Ur Specific [place] (1.000-1.030) Urine Protein (Negative) Urine Glucose (UA) (Negative) Urine Ketones (Negative) Urine Blood (Negative) Urine Nitrite (Negative) Urine Bilirubin (Negative) Urine Urobilinogen (Negative) Ur Leukocyte Esterase (Negative) Urine WBC (Auto) (0-5) /hpf Urine RBC (Auto) (0-4) /hpf U Hyaline Cast (Auto) (0-5) /lpf U Epithel Cells (Auto) (0-5) /lpf Urine Bacteria (Auto) (Negative) POC Stool Occult Blood (Negative) Anaplasma Smear Babesia Smear Lyme Disease IgG Ab (Negative) Lyme Disease IgM Ab (Negative) SARS-CoV-2, RNA, NAAT (NEGATIVE) Blood Type A Positive Antibody Screen NEGATIVE 12/26/22 12/26/22 12/26/22 Range/Units 17:39 19:02 19:26 WBC (4.8-10.8) K/ul RBC (4.70-6.10) M/uL Hgb (14.0-18.0) g/dl POC Hgb (14.0-18.0) g/dl Hct (42.0-52.0) % POC Hct (42-52) % MCV (80.0-100.0) fL MCH (25.0-34.0) pg MCHC (32.0-36.0) g/dL RDW Std Deviation (36.4-46.3) fL RDW Coeff of Herrera (11.5-14.5) % Plt Count (130-400) K/uL MPV (9.4-12.4) fL Immature Gran % (Auto) % Neut % (Auto) % Lymph % (Auto) % Dickson % (Auto) % Eos % (Auto) % Baso % (Auto) % Neut # (Auto) (1.40-6.50) K/uL Lymph # (Auto) (1.2-3.4) K/uL Dickson # (Auto) (0.11-0.59) K/uL Eos # (Auto) (0-0.50) K/uL Baso # (Auto) (0-0.2) K/uL Immature Gran # (Auto) (0.01-0.20) K/uL PT (9.0-12.0) Seconds INR (0.9-1.1) APTT (21.0-31.0) Seconds PTT Ratio D-Dimer (0-500) ug/L FEU VBG pH (7.36-7.41) VBG pCO2 (38-50) mmHg VBG pO2 mmHg VBG HCO3 mmol/L VBG O2 Saturation % VBG Base Excess mEq/L POC Sodium (135-144) mmol/L Sodium (136-145) mmol/L POC Potassium (3.3-5.0) mmol/L Potassium (3.5-5.1) mmol/L POC Chloride (101-112) mmol/L Chloride (98-107) mmol/L Carbon Dioxide (21-32) mmol/L POC Total CO2 (24-31) mmol/L Anion Gap (3-11) POC Anion Gap (16-25) mmol/L POC BUN (7-18) mg/dl BUN (6-23) mg/dl Creatinine (0.6-1.4) mg/dl POC Creatinine (0.6-1.3) mg/dl Est Cr Clr Drug Dosing ml/min Est GFR ( Amer) ml/min Est GFR (Non-Af Amer) ml/min BUN/Creatinine Ratio (10-20) Glucose (70-99(Fasting)) mg/dl POC Glucose (other) (70-99) mg/dl Lactate (0.4-2.0) mmol/L Calcium (8.6-10.3) mg/dl POC Ioniz Calcium Mary (1.12-1.32) mmol/l Magnesium (1.7-2.4) mg/dl Total Bilirubin (0.2-1.0) mg/dl Direct Bilirubin (0-0.2) mg/dl AST (13-39) U/L ALT (7-52) U/L Alkaline Phosphatase (34-104) U/L Troponin I High Sens (0-20) pg/ml B-Natriuretic Peptide (0-100) pg/ml Total Protein (6.0-8.3) gm/dl Albumin (3.4-5.0) gm/dl Vitamin B12 (180-914) pg/ml Folate (>5.38) ng/ml Procalcitonin (0-0.5) ng/ml Urine Color Dark Yellow Urine Appearance Clear (Clear) Urine pH 5.5 (4.5-7.5) Ur Specific [place] 1.023 (1.000-1.030) Urine Protein Trace H (Negative) Urine Glucose (UA) Negative (Negative) Urine Ketones Trace H (Negative) Urine Blood Negative (Negative) Urine Nitrite Negative (Negative) Urine Bilirubin Negative (Negative) Urine Urobilinogen Negative (Negative) Ur Leukocyte Esterase Negative (Negative) Urine WBC (Auto) 1-5 (0-5) /hpf Urine RBC (Auto) 0-4 (0-4) /hpf U Hyaline Cast (Auto) 1-5 (0-5) /lpf U Epithel Cells (Auto) 5-10 H (0-5) /lpf Urine Bacteria (Auto) Negative (Negative) POC Stool Occult Blood Positive A (Negative) Anaplasma Smear Babesia Smear Lyme Disease IgG Ab (Negative) Lyme Disease IgM Ab (Negative) SARS-CoV-2, RNA, NAAT NEGATIVE (NEGATIVE) Blood Type Antibody Screen 12/26/22 12/26/22 12/26/22 Range/Units 19:50 21:13 21:13 WBC (4.8-10.8) K/ul RBC (4.70-6.10) M/uL Hgb (14.0-18.0) g/dl POC Hgb (14.0-18.0) g/dl Hct (42.0-52.0) % POC Hct (42-52) % MCV (80.0-100.0) fL MCH (25.0-34.0) pg MCHC (32.0-36.0) g/dL RDW Std Deviation (36.4-46.3) fL RDW Coeff of Herrera (11.5-14.5) % Plt Count (130-400) K/uL MPV (9.4-12.4) fL Immature Gran % (Auto) % Neut % (Auto) % Lymph % (Auto) % Dickson % (Auto) % Eos % (Auto) % Baso % (Auto) % Neut # (Auto) (1.40-6.50) K/uL Lymph # (Auto) (1.2-3.4) K/uL Dickson # (Auto) (0.11-0.59) K/uL Eos # (Auto) (0-0.50) K/uL Baso # (Auto) (0-0.2) K/uL Immature Gran # (Auto) (0.01-0.20) K/uL PT (9.0-12.0) Seconds INR (0.9-1.1) APTT (21.0-31.0) Seconds PTT Ratio D-Dimer 1970 H* (0-500) ug/L FEU VBG pH (7.36-7.41) VBG pCO2 (38-50) mmHg VBG pO2 mmHg VBG HCO3 mmol/L VBG O2 Saturation % VBG Base Excess mEq/L POC Sodium (135-144) mmol/L Sodium (136-145) mmol/L POC Potassium (3.3-5.0) mmol/L Potassium (3.5-5.1) mmol/L POC Chloride (101-112) mmol/L Chloride (98-107) mmol/L Carbon Dioxide (21-32) mmol/L POC Total CO2 (24-31) mmol/L Anion Gap (3-11) POC Anion Gap (16-25) mmol/L POC BUN (7-18) mg/dl BUN (6-23) mg/dl Creatinine (0.6-1.4) mg/dl POC Creatinine (0.6-1.3) mg/dl Est Cr Clr Drug Dosing ml/min Est GFR ( Amer) ml/min Est GFR (Non-Af Amer) ml/min BUN/Creatinine Ratio (10-20) Glucose (70-99(Fasting)) mg/dl POC Glucose (other) (70-99) mg/dl Lactate 2.9 H* (0.4-2.0) mmol/L Calcium (8.6-10.3) mg/dl POC Ioniz Calcium Mary (1.12-1.32) mmol/l Magnesium (1.7-2.4) mg/dl Total Bilirubin (0.2-1.0) mg/dl Direct Bilirubin (0-0.2) mg/dl AST (13-39) U/L ALT (7-52) U/L Alkaline Phosphatase (34-104) U/L Troponin I High Sens 48.0 H (0-20) pg/ml B-Natriuretic Peptide (0-100) pg/ml Total Protein (6.0-8.3) gm/dl Albumin (3.4-5.0) gm/dl Vitamin B12 (180-914) pg/ml Folate (>5.38) ng/ml Procalcitonin (0-0.5) ng/ml Urine Color Urine Appearance (Clear) Urine pH (4.5-7.5) Ur Specific [place] (1.000-1.030) Urine Protein (Negative) Urine Glucose (UA) (Negative) Urine Ketones (Negative) Urine Blood (Negative) Urine Nitrite (Negative) Urine Bilirubin (Negative) Urine Urobilinogen (Negative) Ur Leukocyte Esterase (Negative) Urine WBC (Auto) (0-5) /hpf Urine RBC (Auto) (0-4) /hpf U Hyaline Cast (Auto) (0-5) /lpf U Epithel Cells (Auto) (0-5) /lpf Urine Bacteria (Auto) (Negative) POC Stool Occult Blood (Negative) Anaplasma Smear Babesia Smear Lyme Disease IgG Ab (Negative) Lyme Disease IgM Ab (Negative) SARS-CoV-2, RNA, NAAT (NEGATIVE) Blood Type Antibody Screen 12/26/22 12/26/22 12/26/22 Range/Units 21:13 21:13 21:13 WBC (4.8-10.8) K/ul RBC (4.70-6.10) M/uL Hgb (14.0-18.0) g/dl POC Hgb (14.0-18.0) g/dl Hct (42.0-52.0) % POC Hct (42-52) % MCV (80.0-100.0) fL MCH (25.0-34.0) pg MCHC (32.0-36.0) g/dL RDW Std Deviation (36.4-46.3) fL RDW Coeff of Herrera (11.5-14.5) % Plt Count (130-400) K/uL MPV (9.4-12.4) fL Immature Gran % (Auto) % Neut % (Auto) % Lymph % (Auto) % Dickson % (Auto) % Eos % (Auto) % Baso % (Auto) % Neut # (Auto) (1.40-6.50) K/uL Lymph # (Auto) (1.2-3.4) K/uL Dickson # (Auto) (0.11-0.59) K/uL Eos # (Auto) (0-0.50) K/uL Baso # (Auto) (0-0.2) K/uL Immature Gran # (Auto) (0.01-0.20) K/uL PT (9.0-12.0) Seconds INR (0.9-1.1) APTT (21.0-31.0) Seconds PTT Ratio D-Dimer (0-500) ug/L FEU VBG pH (7.36-7.41) VBG pCO2 (38-50) mmHg VBG pO2 mmHg VBG HCO3 mmol/L VBG O2 Saturation % VBG Base Excess mEq/L POC Sodium (135-144) mmol/L Sodium (136-145) mmol/L POC Potassium (3.3-5.0) mmol/L Potassium (3.5-5.1) mmol/L POC Chloride (101-112) mmol/L Chloride (98-107) mmol/L Carbon Dioxide (21-32) mmol/L POC Total CO2 (24-31) mmol/L Anion Gap (3-11) POC Anion Gap (16-25) mmol/L POC BUN (7-18) mg/dl BUN (6-23) mg/dl Creatinine (0.6-1.4) mg/dl POC Creatinine (0.6-1.3) mg/dl Est Cr Clr Drug Dosing ml/min Est GFR ( Amer) ml/min Est GFR (Non-Af Amer) ml/min BUN/Creatinine Ratio (10-20) Glucose (70-99(Fasting)) mg/dl POC Glucose (other) (70-99) mg/dl Lactate (0.4-2.0) mmol/L Calcium (8.6-10.3) mg/dl POC Ioniz Calcium Mary (1.12-1.32) mmol/l Magnesium (1.7-2.4) mg/dl Total Bilirubin (0.2-1.0) mg/dl Direct Bilirubin (0-0.2) mg/dl AST (13-39) U/L ALT (7-52) U/L Alkaline Phosphatase (34-104) U/L Troponin I High Sens (0-20) pg/ml B-Natriuretic Peptide (0-100) pg/ml Total Protein (6.0-8.3) gm/dl Albumin (3.4-5.0) gm/dl Vitamin B12 640 (180-914) pg/ml Folate 16.36 (>5.38) ng/ml Procalcitonin (0-0.5) ng/ml Urine Color Urine Appearance (Clear) Urine pH (4.5-7.5) Ur Specific [place] (1.000-1.030) Urine Protein (Negative) Urine Glucose (UA) (Negative) Urine Ketones (Negative) Urine Blood (Negative) Urine Nitrite (Negative) Urine Bilirubin (Negative) Urine Urobilinogen (Negative) Ur Leukocyte Esterase (Negative) Urine WBC (Auto) (0-5) /hpf Urine RBC (Auto) (0-4) /hpf U Hyaline Cast (Auto) (0-5) /lpf U Epithel Cells (Auto) (0-5) /lpf Urine Bacteria (Auto) (Negative) POC Stool Occult Blood (Negative) Anaplasma Smear See Comment Babesia Smear See Comment Lyme Disease IgG Ab Negative (Negative) Lyme Disease IgM Ab Negative (Negative) SARS-CoV-2, RNA, NAAT (NEGATIVE) Blood Type Antibody Screen Imaging Data Attestation: I personally reviewed and interpreted this imaging study as follows: My Impression: Chest x-ray-no acute infiltrate, failure, pneumothorax. There is cardiomegaly. Head CT -no hemorrhage or mass effect seen Radiologist's Impression: Chest X-Ray 12/26/22 17:19 SINGLE VIEW CHEST CLINICAL HISTORY: Sepsis. FINDINGS: An AP, portable, upright chest radiograph is compared to chest x-ray and chest CT dated 12/08/2022. There is evidence of previous cardiac valve surgery. The heart is enlarged noting atherosclerotic calcification of the thoracic aorta. The pulmonary vasculature is noncongested. Chronic interstitial thickening is similar to previous. There is mild bibasilar scarring/atelectasis. The lungs and pleural spaces are otherwise clear. No pneumothorax is seen. The skeletal structures are osteopenic. There are chronic/healed left-sided rib f ractures. Arthritic change is noted in the shoulders. IMPRESSION: Cardiomegaly with no active disease in the chest. ACT 112: Negative or not required by law. Electronically signed by: Kimo Mora M.D. 12/26/2022 5:[address] 12/26/22 17:19 CT SCAN OF THE BRAIN WITHOUT IV CONTRAST CLINICAL HISTORY: Change in mental status COMPARISON STUDY: CT of the brain dated 11/16/2022. TECHNIQUE: Unenhanced axial CT scan of the brain is performed from the vertex to the skull base. A dose lowering technique was utilized adhering to the principles of ALARA. The examination is significantly degraded by streak artifact from electronic devices along the bilateral occipital cortex. CT DOSE: 625.80 mGy.cm FINDINGS: Brain parenchyma: There is age-related involutional change noting moderate confluent subcortical and periventricular microangiopathic disease. There is no hemorrhage, mass effect, or evidence of acute territorial ischemia by CT criteria. Dozier-white matter differentiation is preserved. No extra-axial fluid collection is seen. Mineralization is noted in the basal ganglia. Ventricles, sulci, cisterns: Prominent secondary to involutional change. Intracranial vasculature: There is atherosclerotic calcification of the cavernous carotid and vertebral arteries. Calvarium: Unremarkable. Sinuses and mastoids: There is trace mucosal thickening right maxillary antrum. The remaining visualized paranasal sinuses are clear. There is evidence of previous bilateral mastoid surgery. The mastoid air cells are well pneumatized. Cerumen is noted in the external auditory canals. Orbits: The bony orbits are grossly intact. There are bilateral ocular lens implants. IMPRESSION: There is no evidence of hemorrhage, mass effect, or acute territorial ischemia by CT criteria. ACT 112: Negative or not required by law. Electronically signed by: Kimo Mora M.D. 12/26/2022 6:49 PM ECG Data Attestation: I personally reviewed and interpreted this ECG as follows: Indication: + altered mental status Rate (beats per minute): 79 Rhythm: + normal sinus ECG Intervals/blocks: + First degree AV block, + Normal QRS, + Prolonged QT and + Normal SD ECG Marion: + Normal ECG Findings: + PVCs and + Other (ST and T wave abnormalities anteriorly and laterally); no PACs Comparison ECG Date: from (12/12/22) Change: no significant change MDM Narrative This patient comes in described above. He has multiple complaints he has bleeding from his nose and potentially rectum he has increasing shortness of breath and confusion. He was placed on supplemental oxygen the ambulance and appears to have stable vital signs at this point. He does look chronically ill. He has multiple potential etiologies for his symptoms. EKG was obtained and has some ischemic appearing changes however they are not changed compared to old. Chest x-ray was obtained as well as head CT his blood sugar on route was 115 and therefore not likely the culprit. Multiple blood testing was obtained including blood cultures and lactic acid. He was typed and screened in the even t that he would need blood he I did a [id number] i-STAT as well. Chest x-ray does not show any overt CHF. His i-STAT labs show hemoglobin 10.9 which is about his baseline. His rest of his electrolytes look reassuring. His lactic acid came back mildly elevated 2.5 he has been given cefepime 2 g IV for possible infection. I did only give him due to judicious IV fluids initially because he has a history of CHF. He was given 250 cc normal saline bolus and seemed to tolerate this well. I am worried about precipitating CHF. His blood pressures been stable. the family did show up and I talked him at length he has been very restless he had a nosebleed last night. There is a he is confused but that is been an ongoing thing. They have been discussing with nursing possibly placing him on hospice but have not yet made a decision. The does tell me that he is definitely a DNR and they have had a long discussion with him in the past about this and feels that this would be his wishes. His other inflammatory markers are not significantly elevated. His repeat lactate is actually slightly higher 2.9. His troponin is mildly elevated in the 50 range and I repeat was in the same range. EKG does not suggest ischemic changes. His LFTs look about baseline. He has multiple potential etiologies for his symptoms I do think he needs to be admitted for further treatment evaluation. It is difficult to say what is the primary etiology for symptoms at this point but I am still worried about infection and cardiac disease/CHF. I have consulted Dr. Musa and the [facility] team to see him in the ER I have discussed the case at length with him they saw him in the ER for these measures. Although he had a nosebleed last night that he is not bleeding at present. Continuous cardiac monitoring: Orders placed in EMR for continuous cardiac monitoring: Upon my evaluation patient noted to be in normal sinus rhythm with a rate of 80 Impression & Plan Altered mental status, CAD (coronary artery disease), Acute metabolic encephalopathy, Elevated troponin, Lab test negative for COVID-19 virus, Epi staxis Discharge Plan Visit Data Chief Complaint: Altered Mental Status Stated Complaint: ALTERED MENTAL STATUS ED Provider: Travis Collins Discharge Problem: Altered mental status, CAD (coronary artery disease), Acute metabolic encephalopathy, Elevated troponin, Lab test negative for COVID-19 virus, Epistaxis Patient Disposition: Admitted As Inpatient Discharge Instructions Interventions: ED Discharge Assessment Last Done: 12/26/22 23:53
--- NOTE | 2022-12-26 17:49 | XRay Report ---
SINGLE VIEW CHEST CLINICAL HISTORY: Sepsis. FINDINGS: An AP, portable, upright chest radiograph is compared to chest x-ray and chest CT dated 11/21. There is evidence of previous cardiac valve surgery. The heart is enlarged noting atheroscler otic calcification of the thoracic aorta. The pulmonary vasculature is noncongested. Chronic intersti tial thickening is similar to previous. There is mild bibasilar scarring/atelectasis. The lungs and p leural spaces are otherwise clear. No pneumothorax is seen. The skeletal structures are osteopenic. T here are chronic/healed left-sided rib fractures. Arthritic change is noted in the shoulders. IMPRESSION: Cardiomegaly with no active disease in the chest. ACT 112: Negative or not required by law. Electronically signed by: Kimo Mora M.D. 12/26/2022 5:46 PM
[2022-12-26 17:51] LABS: iSTAT Creatinine 1.2 mg/dl (0.6-1.3); iSTAT Hemoglobin 10.9 g/dl (14.0-18.0); iSTAT Ionized Calcium 1.11 mmol/l (1.12-1.32); iSTAT Potassium 3.4 mmol/L (3.3-5.0)
[2022-12-26] MEDS ORDERED: CEFEPIME 2,000 MG in SYRINGE 0 ML IV STA (18:02)
[2022-12-26 18:03] LABS: Base Excess VBG 3.3 mEq/L; HCO3 VBG 28 mmol/L; Oxygen Saturation VBG < 60.0 %; PCO2 VBG 41 mmHg (38-50); PO2 VBG 18 mmHg; pH VBG 7.44 (7.36-7.41)
[2022-12-26 18:08] LABS: Basophils # (auto) 0.06 K/uL (0-0.2); Basophils % (auto) 0.9 %; Eosinophils # (auto) 0.09 K/uL (0-0.50); Eosinophils % (auto) 1.3 %; Hematocrit (blood only) 29.9 % (42.0-52.0); Hemoglobin 9.8 g/dl (14.0-18.0); Immature Granulocytes # (auto) 0.04 K/uL (0.01-0.20); Immature Granulocytes % (auto) 0.6 %; Lymphocytes # (auto) 0.69 K/uL (1.2-3.4); Lymphocytes % (auto) 9.9 %; Mean Corpuscular Hgb Conc 32.8 g/dL (32.0-36.0); Mean Corpuscular Volume 100.7 fL (80.0-100.0); Mean Platelet Volume 11.1 fL (9.4-12.4); Monocytes # (auto) 0.43 K/uL (0.11-0.59); Monocytes % (auto) 6.2 %; Neutrophils # (auto) 5.63 K/uL (1.40-6.50); Neutrophils % (auto) 81.1 %; Platelet Count 192 K/uL (130-400); RDW Coefficient of Variation 18.3 % (11.5-14.5); RDW Standard Deviation 67.9 fL (36.4-46.3); Red Blood Count 2.97 M/uL (4.70-6.10); White Blood Count 6.94 K/ul (4.8-10.8)
[2022-12-26] MEDS ORDERED: SODIUM CHLORIDE 0.9% 1000ML 250 ML IV ONE (18:11)
[2022-12-26 18:24] LABS: Albumin Level 3.6 gm/dl (3.4-5.0); BUN Creatinine Ratio 42.4 (10-20); Bilirubin Direct 1.3 mg/dl (0-0.2); Bilirubin,Total 3.6 mg/dl (0.2-1.0); Calcium 9.2 mg/dl (8.6-10.3); Creatinine Clr Calc Pharmacy 52.1 ml/min; Est GFR (African American) 64.9 ml/min; Magnesium 1.5 mg/dl (1.7-2.4); Potassium 3.4 mmol/L (3.5-5.1); Total Protein 6.4 gm/dl (6.0-8.3)
[2022-12-26 18:34] LABS: INR 1.2 (0.9-1.1); Partial Thromboplastin Ratio 1.1; Partial Thromboplastin Time 29.8 Seconds (21.0-31.0); Prothrombin Time 13.5 Seconds (9.0-12.0)
[2022-12-26 18:35] LABS: Troponin I High Sensitivity 53.8 pg/ml (0-20)
--- NOTE | 2022-12-26 18:50 | CT Scan Report ---
CT SCAN OF THE BRAIN WITHOUT IV CONTRAST CLINICAL HISTORY: Change in mental status COMPARISON STUDY: CT of the brain dated 11/16/2022. TECHNIQUE: Unenhanced axial CT scan of the brain is performed from the vertex to the skull base. A do se lowering technique was utilized adhering to the principles of ALARA. The examination is significan tly degraded by streak artifact from electronic devices along the bilateral occipital cortex. CT DOSE: 625.80 mGy.cm FINDINGS: Brain parenchyma: There is age-related involutional change noting moderate confluent subcortical and periventricular microangiopathic disease. There is no hemorrhage, mass effect, or evidence of acute t erritorial ischemia by CT criteria. Dozier-white matter differentiation is preserved. No extra-axial fl uid collection is seen. Mineralization is noted in the basal ganglia. Ventricles, sulci, cisterns: Prominent secondary to involutional change. Intracranial vasculature: There is atherosclerotic calcification of the cavernous carotid and vertebr al arteries. Calvarium: Unremarkable. Sinuses and mastoids: There is trace mucosal thickening right maxillary antrum. The remaining visuali zed paranasal sinuses are clear. There is evidence of previous bilateral mastoid surgery. The mastoid air cells are well pneumatized. Cerumen is noted in the external auditory canals. Orbits: The bony orbits are grossly intact. There are bilateral ocular lens implants. IMPRESSION: There is no evidence of hemorrhage, mass effect, or acute territorial ischemia by CT blake alfredo. ACT 112: Negative or not required by law. Electronically signed by: Kimo Mora M.D. 12/26/2022 6:49 PM
[2022-12-26] MEDS ORDERED: MAGNESIUM SULFATE / D5W 1 GM/100 ML BAG IV ONE (19:50)
[2022-12-26 19:52] LABS: Appearance Urine Clear (Clear); Bacteria Urine Automated Negative (Negative); Bilirubin Urine Negative (Negative); Blood Urine Negative (Negative); Color Urine Dark Yellow; Glucose Urine UA Negative (Negative); Ketones Urine Trace (Negative); Leukocyte Esterase Urine Negative (Negative); Nitrite Urine Negative (Negative); Protein Urine Trace (Negative); RBC Urine Automated 0-4 /hpf (0-4); Specific Gravity Urine 1.023 (1.000-1.030); Urobilinogen Urine Negative (Negative); pH Urine 5.5 (4.5-7.5)
--- NOTE | 2022-12-26 20:28 | History & Physical Report ---
Date of Service December 26, 2022 Assessment & Plan (1) Epistaxis: Plan: 76 yo male with PMHx of paroxysmal afib, CAD, HFpEF, s/p TAVR, HTN, HLD, BPH, MARLON, depression, anxiety, epistaxis, CKD, anemia, and GERD presents with nose bleed and abdominal pain. #GI bleed #Epistaxis #Anemia -presented with 1 day abdominal pain. He did have a 12 hour episode of L nostril bleeding prior to admission and a subsequent black/tarry BM. He does demonstrate some abdominal guarding on examination. FOBT positive. Hgb 9.8 on admission, baseline ~11.5. Unclear whether symptoms due to ingesting blood from nose bleed versus true GI bleed. He did meet SIRS criteria on admission (RR, HR). No leukocytosis. Afebrile. Blood cx pending. Lactate remains elevated however could be 2/2 blood ingestion. He received cefepime in ED. Will give a dose of Flagyl as while awaiting CT A/P. He is at increased risk of infection/perforation given recent CBD stent placement as below. -NPO, NSS @ low maintenance (with h/o CHF), protonix bid -Hemoccult every stool -CT A/P without contrast pending. Deferred contrast due to h/o EVELYN on CKD. -GI consulted #H/o biliary sludge -CBD stent placed on 12/11/22. LFTs stable since last admission. -Follows with GI outpatient. Recommended removal of stent in 3 months #Elevated troponin -trop 53, peaked. Suspect due to demand. EKG with chronic anterolateral ST depressions. #Elevated d-dimer -ordered due to fluctuations in sob and HR. D-dimer 1970, however, he is with recent epistaxis and possible GI bleed. Also with recent CBD stent placement. -will obtain V/Q scan to r/o PE. Will defer CTA chest since low likelihood of PE given he is on chronic eliquis and with h/o EVELYN on CKD. #HFpEF #Mitral regurgitation, chronic #s/p TAVR -he is with chronic sob, on 2L O2 at home. Previous echo EF 45-50%. Lungs clear on examination, do not suspect acute exacerbation at this time. CXR with no acute changes. -cont. metoprolol -hold home lasix at this time. Per previous admission note, he was advised to only use diuretics with weight gain d/t CHF. Patient states he has been taking his lasix daily, dose unknown. #Macrocytic Anemia/Poikilocytosis -evidenced on peripheral smear 12/09. Could not exclude myelodysplasia. Follows with heme/onc as outpatient. Bone marrow biopsy results pending. -cont. folic acid #CAD -cont. statin, metoprolol -hold asa d/t possible GI bleed #CKD, stage 3b -Cr wnl #Afib -cont. metoprolol -hold eliquis d/t possible GI bleed #Chronic sinusitis -cont. flonase, loratadine #HLD -cont. statin #Anxiety #Depression -cont. paxil, wellbutrin #BPH -cont. tamsulosin #Anorexia, chronic -likely 2/2 cardiac cachexia in the setting of RHF/LHF -cont. Marinol bid -palliative consultation during previous admission DVT ppx: SCDs; avoid chemical d/t possible GI bleed FEN/GI: NPO Code Status: DNR/DNI Dispo: PCU (2) Abdominal pain: (3) Paroxysmal A-fib: (4) Heart failure with mildly reduced ejection fraction (HFmrEF): (5) Severe mitral regurgitation: (6) S/p TAVR (transcatheter aortic valve replacement), bioprosthetic: (7) Hypertension: (8) Sleep apnea: (9) Dyslipidemia: (10) BPH with obstruction/lower urinary tract symptoms: (11) CAD (coronary artery disease): (12) Depression with anxiety: (13) GERD (gastroesophageal reflux disease): (14) CKD (chronic kidney disease): (15) Anemia: History of Present Illness Chief Complaint: epistaxis, abdominal pain Primary Care Provider: Nova Rousseau, 76 yo male with PMHx of paroxysmal afib, CAD, HFpEF, s/p TAVR, HTN, HLD, BPH, MARLON, depression, anxiety, epistaxis, CKD, anemia, and GERD presents with nose bleed and abdominal pain. Yesterday patient had 12 hours of bleeding from his L nostril. He does have a history of epistaxis but never for this long. Bleeding did eventually stop on its own. Today he reported a black BM. He has been having associated abdominal pain as well. Denies headache, chest pain, sob, fatigue, N/V/D, dysuria. extremity weakness/paraesthesia. Of note, he was discharged from [facility] a few days agao for acute on chronic HFpEF and is s/p TAVR 1 month ago. He requires 2L O2 on ambulation and does wear a cpap at night. During his last admission he also had a biliary stent inserted d/t biliary sludge. Follows with GI. Allergies Allergy/AdvReac Type Severity Reaction Status Date / Time baclofen Allergy Unknown PT & PT'S Verified 12/08/22 20:11 SPOUSE DENIES ANY ALLERGIES OR SENSATIVITY TO MED cyclobenzaprine Allergy Unknown PT & PT'S Verified 12/08/22 20:11 [From Flexeril] SPOUSE DENIES ANY ALLERGIES OR SENSATIVITY TO MED doxazosin Allergy Unknown PT & PT'S Verified 12/08/22 20:11 SPOUSE DENIES ANY ALLERGIES OR SENSATIVITY TO MED doxycycline Allergy Unknown PT & PT'S Verified 12/08/22 20:11 SPOUSE DENIES ANY ALLERGIES OR SENSATIVITY TO MED duloxetine Allergy Unknown PT & PT'S Verified 12/08/22 20:11 SPOUSE DENIES ANY ALLERGIES OR SENSATIVITY TO MED gabapentin Allergy Unknown PT & PT'S Verified 12/08/22 20:11 SPOUSE DENIES ANY ALLERGIES OR SENSATIVITY TO MED lisinopril Allergy Unknown PT & PT'S Verified 12/08/22 20:11 SPOUSE DENIES ANY ALLERGIES OR SENSATIVITY TO MED naproxen Allergy Unknown PT & PT'S Verified 12/08/22 20:11 SPOUSE DENIES ANY ALLERGIES OR SENSATIVITY TO MED nortriptyline [From Pamelor] Allergy Unknown PT & PT'S Verified 12/08/22 20:11 SPOUSE DENIES ANY ALLERGIES OR SENSATIVITY TO MED oxcarbazepine Allergy Unknown PT & PT'S Verified 12/08/22 20:11 SPOUSE DENIES ANY ALLERGIES OR SENSATIVITY TO MED Penicillins Allergy Unknown PT & PT'S Verified 12/08/22 20:11 SPOUSE DENIES ANY ALLERGIES OR SENSATIVITY TO MED Home Medications Medication Instructions Recorded Confirmed Type acetaminophen 500 mg tablet 1,000 mg PO TID PRN fever or pain 11/18/18 12/26/22 Rx #90 tabs aspirin 81 mg tablet,delayed 81 mg PO DAILY #90 tabs 06/09/22 12/26/22 Rx release Wheelchair (Manual) #1 ea 09/17/22 12/26/22 Rx Oxygen Home #1 ea 10/12/22 12/26/22 Rx atorvastatin 80 mg tablet 80 mg PO HS #90 tabs 11/05/22 12/26/22 Rx bupropion HCl 150 mg 24 hr tablet, 150 mg PO QAM #90 tabs 11/05/22 12/26/22 Rx extended release (Wellbutrin XL) fluticasone propionate 50 2 spray intranasal DAILY #48 grams 11/05/22 12/26/22 Rx mcg/actuation nasal spray,suspension (Flonase Allergy Relief) pantoprazole 40 mg tablet,delayed 40 mg PO DAILY #90 tabs 11/05/22 12/26/22 Rx release paroxetine HCl 40 mg tablet 40 mg PO QAM #90 tabs 11/05/22 12/26/22 Rx potassium chloride 20 mEq 20 meq PO QAM #90 tabs 11/05/22 12/26/22 Rx tablet,extended release tamsulosin 0.4 mg capsule 0.4 mg PO HS #90 caps 11/05/22 12/26/22 Rx loratadine 10 mg tablet 10 mg PO DAILY 11/09/22 12/26/22 History apixaban 5 mg tablet (Eliquis) 5 mg PO BID 30 days #60 tabs 12/18/22 12/26/22 Rx dronabinol 2.5 mg capsule (Marinol) 2.5 mg PO BID #28 caps 12/18/22 12/26/22 Rx folic acid 1 mg tablet 1 mg PO QAM 30 days #30 tabs 12/18/22 12/26/22 Rx metoprolol tartrate 25 mg tablet 12.5 mg PO BID 30 days #30 tabs 12/18/22 12/26/22 Rx furosemide 20 mg tablet 20 mg PO QAM 12/26/22 12/26/22 History Past Med/Surg History Medical History (Updated 12/27/22 @ 12:19 by Adam Liao, DO) Acute heart failure with preserved ejection fraction Acute metabolic encephalopathy Acute on chronic heart failure with preserved ejection fraction (HFpEF) Aneurysm, thoracic aortic pt unaware of size, follows with Dr. aPige Aortic atherosclerosis Aortic stenosis, severe Atrial fibrillation Atrial fibrillation with rapid ventricular response BPH with obstruction/lower urinary tract symptoms CAD (coronary artery disease) Cervical disc disease CHF (congestive heart failure) Chronic anticoagulation Chronic sinusitis Cognitive disorder Colitis Coronary artery calcification Depression with anxiety DVT (deep venous thrombosis) Dyslipidemia Elevated LFTs Encounter for pre-operative examination Glaucoma Hearing loss Hepatic steatosis History of central retinal vein occlusion Hypertension Hypotension Iron deficiency Lower GI bleed no current issues Lumbar spinal stenosis Lymphopenia Mitral regurgitation MVP (mitral valve prolapse) Osteoarthritis PAC (premature atrial contraction) Palliative care encounter Pleural effusion on right Recurrent epistaxis Red blood cell abnormality Sleep apnea Trigeminal neuralgia received radiation for this, having numbess/tingling to right side of face since this Vitamin D deficiency Surgical History H/O cataract extraction (2013) H/O colonoscopy History of cochlear implant (01/12/12) BILATERAL History of pilonidal cyst removed History of umbilical hernia repair S/P foot surgery, right (12/2010) removal of heel spur S/P laser trabeculoplasty of eye (10/2014) b/l S/P nasal endoscopy with nasal polypectomy (2011) S/P rotator cuff repair b/l shoulders S/p TAVR (transcatheter aortic valve replacement), 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) Family History Mother No pertinent family history Other Hypertension Denies family history of Ovarian cancer Prostate cancer Diabetes Myocardial infarction Breast cancer Colorectal cancer Cancer Social History Smoking Status: Never smoker Tobacco Type: Cigarettes Second Hand Exposure: No; Do You Dip or Chew Tobacco: No; Hx Alcohol Use: No Hx Substance Use: No Preferred Language: Chinese Communication Ability: Effective Visual Impairment: No Limitations Hearing Ability: Cochlear Implant Wall Attendant Required: No Beliefs That Will Affect Care: None marital status: Current Living Situation: Spouse Current Living Situation Comment: with and daughter current occupational status: retired How many Children do You have: 1 Other Information That Helps Us Care for You: No Feels Safe at Home: Yes Safety Concerns: Feels Safe At This Time Childhood Exposure to Second-Hand Smoke: Yes Diet: regular Diet Comment: regular caffeine: Yes (Soda 6 per day. Coffee 1 cup per day.) during the past year weight has: remained stable Dental Care, Regularly: No Physical Activity Frequency: Daily Seatbelt Use: sometimes Sunscreen Use: No Assistive Devices: Cane, CPAP, Oxygen - at Night and Walker Review of Systems Review of Systems: All systems reviewed & are unremarkable except as noted in HPI & below Physical Exam Physical Exam: Constitutional: in no acute distress, pleasant, cachectic. AOx3. Vitals as above. HEENT: No scleral injection or discharge.Dry mucous membranes. Clear oropharynx. Nasal passages without active bleeding. Neck: Supple without lymphadenopathy or thyromegaly. Trachea midline. Lungs: Clear to auscultation bilaterally with good effort. No wheezes/rales/rhonchi. Cardiac:Irregularly irregular rhythm. Regular rate.+holosystolic murmur.1+ lower extremity edema bilaterally. 2+ distal peripheral pulses. Abdomen: Bowel sounds present. Soft and nondistended.Diffuse tenderness predominantly at midline abdomen. +guarding. No rebound tenderness. No hepatosplenomegaly. MSK: No cyanosis or clubbing. Extremities motor strength 5/5. Skin: No abnormal rashes, warm, dry. Neurologic: Grossly intact cranial nerves and 2+ patellar tendon reflexes bilaterally. PERRL. Results & Data Results & Data Vital Signs (Past 12 Hours) Vital Signs Temp Pulse Pulse Resp BP BP Pulse Ox 12/26/22 20:15 103 H 22 99 12/26/22 20:00 87 25 H 97 12/26/22 19:45 88 24 12/26/22 19:30 91 H 20 94 12/26/22 19:15 89 21 96 12/26/22 20:21 12/26/22 20:00 78 23 112/59 L 100 12/26/22 19:04 80 24 96 12/26/22 18:45 96 H 35 H 116/78 100 12/26/22 17:45 98 12/26/22 17:45 36.3 C L 79 36 H 98/65 L 98 12/26/22 17:19 88 O2 Del Method 12/26/22 20:15 12/26/22 20:00 Room Air 12/26/22 19:45 12/26/22 19:30 12/26/22 19:15 12/26/22 20:21 Room Air 12/26/22 20:00 12/26/22 19:04 Room Air 12/26/22 18:45 Room Air 12/26/22 17:45 Room Air 12/26/22 17:45 Room Air 12/26/22 17:19 Laboratory Results Laboratory Results WBC 6.94 K/ul (4.8-10.8) 12/26/22 17:34 RBC 2.97 M/uL (4.70-6.10) L 12/26/22 17:34 Hgb 9.8 g/dl (14.0-18.0) L 12/26/22 17:34 POC Hgb 10.9 g/dl (14.0-18.0) L 12/26/22 17:38 Hct 29.9 % (42.0-52.0) L 12/26/22 17:34 POC Hct 32 % (42-52) L 12/26/22 17:38 MCV 100.7 fL (80.0-100.0) H 12/26/22 17:34 MCH 33.0 pg (25.0-34.0) 12/26/22 17:34 MCHC 32.8 g/dL (32.0-36.0) 12/26/22 17:34 RDW Std Deviation 67.9 fL (36.4-46.3) H 12/26/22 17:34 RDW Coeff of Herrera 18.3 % (11.5-14.5) H 12/26/22 17:34 Plt Count 192 K/uL (130-400) 12/26/22 17:34 MPV 11.1 fL (9.4-12.4) 12/26/22 17:34 Immature Gran % (Auto) 0.6 % 12/26/22 17:34 Neut % (Auto) 81.1 % 12/26/22 17:34 Lymph % (Auto) 9.9 % 12/26/22 17:34 [place] % (Auto) 6.2 % 12/26/22 17:34 Eos % (Auto) 1.3 % 12/26/22 17:34 Baso % (Auto) 0.9 % 12/26/22 17:34 Neut # (Auto) 5.63 K/uL (1.40-6.50) 12/26/22 17:34 Lymph # (Auto) 0.69 K/uL (1.2-3.4) L 12/26/22 17:34 [place] # (Auto) 0.43 K/uL (0.11-0.59) 12/26/22 17:34 Eos # (Auto) 0.09 K/uL (0-0.50) 12/26/22 17:34 Baso # (Auto) 0.06 K/uL (0-0.2) 12/26/22 17:34 Immature Gran # (Auto) 0.04 K/uL (0.01-0.20) 12/26/22 17:34 PT 13.5 Seconds (9.0-12.0) H 12/26/22 17:34 INR 1.2 (0.9-1.1) H 12/26/22 17:34 APTT 29.8 Seconds (21.0-31.0) 12/26/22 17:34 PTT Ratio 1.1 12/26/22 17:34 VBG pH 7.44 (7.36-7.41) H 12/26/22 17:34 VBG pCO2 41 mmHg (38-50) 12/26/22 17:34 VBG pO2 18 mmHg 12/26/22 17:34 VBG HCO3 28 mmol/L 12/26/22 17:34 VBG O2 Saturation < 60.0 % 12/26/22 17:34 VBG Base Excess 3.3 mEq/L 12/26/22 17:34 POC Sodium 139 mmol/L (135-144) 12/26/22 17:38 Sodium 139 mmol/L (136-145) 12/26/22 17:34 POC Potassium 3.4 mmol/L (3.3-5.0) 12/26/22 17:38 Potassium 3.4 mmol/L (3.5-5.1) L 12/26/22 17:34 POC Chloride 103 mmol/L (101-112) 12/26/22 17:38 Chloride 103 mmol/L (98-107) 12/26/22 17:34 Carbon Dioxide 25 mmol/L (21-32) 12/26/22 17:34 POC Total CO2 23 mmol/L (24-31) L 12/26/22 17:38 Anion Gap 11 (3-11) 12/26/22 17:34 POC Anion Gap 18.0 mmol/L (16-25) 12/26/22 17:38 POC BUN 45 mg/dl (7-18) H 12/26/22 17:38 BUN 53 mg/dl (6-23) H 12/26/22 17:34 Creatinine 1.25 mg/dl (0.6-1.4) 12/26/22 17:34 POC Creatinine 1.2 mg/dl (0.6-1.3) 12/26/22 17:38 Est Cr Clr Drug Dosing 52.1 ml/min 12/26/22 17:34 Est GFR ( Amer) 64.9 ml/min 12/26/22 17:34 Est GFR (Non-Af Amer) 56.0 ml/min 12/26/22 17:34 BUN/Creatinine Ratio 42.4 (10-20) H 12/26/22 17:34 Glucose 95 mg/dl (70-99(Fasting)) 12/26/22 17:34 POC Glucose (other) 95 mg/dl (70-99) 12/26/22 17:38 Lactate 2.9 mmol/L (0.4-2.0) H* 12/26/22 19:50 Calcium 9.2 mg/dl (8.6-10.3) 12/26/22 17:34 POC Ioniz Calcium Mary 1.11 mmol/l (1.12-1.32) L 12/26/22 17:38 Magnesium 1.5 mg/dl (1.7-2.4) L 12/26/22 17:34 Total Bilirubin 3.6 mg/dl (0.2-1.0) H 12/26/22 17:34 Direct Bilirubin 1.3 mg/dl (0-0.2) H 12/26/22 17:34 AST 41 U/L (13-39) H 12/26/22 17:34 ALT 34 U/L (7-52) 12/26/22 17:34 Alkaline Phosphatase 148 U/L (34-104) H 12/26/22 17:34 Troponin I High Sens 53.8 pg/ml (0-20) H* 12/26/22 17:34 B-Natriuretic Peptide 1091 pg/ml (0-100) H 12/26/22 17:34 Total Protein 6.4 gm/dl (6.0-8.3) 12/26/22 17:34 Albumin 3.6 gm/dl (3.4-5.0) 12/26/22 17:34 Procalcitonin 0.11 ng/ml (0-0.5) 12/26/22 17:34 Urine Color Dark Yellow 12/26/22 19:02 Urine Appearance Clear (Clear) 12/26/22 19:02 Urine pH 5.5 (4.5-7.5) 12/26/22 19:02 Ur Specific [place] 1.023 (1.000-1.030) 12/26/22 19:02 Urine Protein Trace (Negative) H 12/26/22 19:02 Urine Glucose (UA) Negative (Negative) 12/26/22 19: Urine Ketones Trace (Negative) H 12/26/22 19: Urine Blood Negative (Negative) 12/26/22 19: Urine Nitrite Negative (Negative) 12/26/22 19: Urine Bilirubin Negative (Negative) 12/26/22 19:02 Urine Urobilinogen Negative (Negative) 12/26/22 19:02 Ur Leukocyte Esterase Negative (Negative) 12/26/22 19:02 Urine WBC (Auto) 1-5 /hpf (0-5) 12/26/22 19:02 Urine RBC (Auto) 0-4 /hpf (0-4) 12/26/22 19:02 U Hyaline Cast (Auto) 1-5 /lpf (0-5) 12/26/22 19:02 U Epithel Cells (Auto) 5-10 /lpf (0-5) H 12/26/22 19:02 Urine Bacteria (Auto) Negative (Negative) 12/26/22 19:02 POC Stool Occult Blood Positive (Negative) A 12/26/22 19:26 SARS-CoV-2, RNA, NAAT NEGATIVE (NEGATIVE) 12/26/22 17:39 Blood Type A Positive 12/26/22 17:34 Antibody Screen NEGATIVE 12/26/22 17:34 Impressions Chest X-Ray 12/26/22 17:19 SINGLE VIEW CHEST CLINICAL HISTORY: Sepsis. FINDINGS: An AP, portable, upright chest radiograph is compared to chest x-ray and chest CT dated 12/08/2022. There is evidence of previous cardiac valve surgery. The heart is enlarged noting atherosclerotic calcification of the thoracic aorta. The pulmonary vasculature is noncongested. Chronic interstitial thickening is similar to previous. There is mild bibasilar scarring/atelectasis. The lungs and pleural spaces are otherwise clear. No pneumothorax is seen. The skeletal structures are osteopenic. There are chronic/healed left-sided rib fractures. Arthritic change is noted in the shoulders. IMPRESSION: Cardiomegaly with no active disease in the chest. ACT 112: Negative or not required by law. Electronically signed by: Kimo Mora M.D. 12/26/2022 5:[address] 12/26/22 17:19 CT SCAN OF THE BRAIN WITHOUT IV CONTRAST CLINICAL HISTORY: Change in mental status COMPARISON STUDY: CT of the brain dated 11/16/2022. TECHNIQUE: Unenhanced axial CT scan of the brain is performed from the vertex to the skull base. A dose lowering technique was utilized adhering to the principles of ALARA. The examination is significantly degraded by streak artifact from electronic devices along the bilateral occipital cortex. CT DOSE: 625.80 mGy.cm FINDINGS: Brain parenchyma: There is age-related involutional change noting moderate confluent subcortical and periventricular microangiopathic disease. There is no hemorrhage, mass effect, or evidence of acute territorial ischemia by CT criteria. Dozier-white matter differentiation is preserved. No extra-axial fluid collection is seen. Mineralization is noted in the basal ganglia. Ventricles, sulci, cisterns: Prominent secondary to involutional change. Intracranial vasculature: There is atherosclerotic calcification of the cavernous carotid and vertebral arteries. Calvarium: Unremarkable. Sinuses and mastoids: There is trace mucosal thickening right maxillary antrum. The remaining visualized paranasal sinuses are clear. There is evidence of previous bilateral mastoid surgery. The mastoid air cells are well pneumatized. Cerumen is noted in the external auditory canals. Orbits: The bony orbits are grossly intact. There are bilateral ocular lens implants. IMPRESSION: There is no evidence of hemorrhage, mass effect, or acute territorial ischemia by CT criteria. ACT 112: Negative or not required by law. Electronically signed by: Kimo Mora M.D. 12/26/2022 6:49 PM Supervising Physician Co-Signing Physician Notes Attending addendum: I have physically seen this patient, have supervised the medical residents activities, and agree with the H&P unless as otherwise noted. Assessment and Plan: Abnormal bleeding/epistaxis versus GI versus both- Patient presented with 12 hours of left nostril bleeding then followed with a dark tarry stool Hemoglobin 9.8 on admission, with baseline 11.5 Follow serial H&H's every 6 hours Epistaxis has been controlled with local care, use Afrin nasal spray if necessary rocket CT scan abdomen the pelvis pending Hold aspirin Consult ENT versus gastro as needed Hyperbilirubinemia/biliary sludge- Status post CBD stent placed on 12/11/2022 Continue to follow labs serially Elevated troponin/HFpEF/CAD/chronic med regurgitation/status post TAVR- Troponin 53 on admission Likely supply demand mismatch Continue metoprolol and statin Hold Lasix as noted Resident Activity Tracking Resident Involvement: Resident Care Provided Care Provided: Adult Hospital Medicine (11) CAD (coronary artery disease) Associated angina: without angina Coronary Disease-Associated Artery/Lesion type: unspecified vessel or lesion type [place] vs. transplanted heart: unspecified whether [place] or transplanted heart Qualified Code(s): I25.10 - Atherosclerotic heart disease of [place] coronary artery without angina pectoris
[2022-12-26] MEDS: POTASSIUM CHLORIDE / WTR 10 MEQ/100 ML PLCT IV SCH ×2 (20:32→21:39)
[2022-12-26] MEDS ORDERED: SODIUM CHLORIDE 0.9% 1000ML 1,000 ML IV SCH (20:45)
[2022-12-26 21:58] LABS: D Dimer 1970 ug/L FEU (0-500)
[2022-12-26 22:07] LABS: Folate (Folic Acid),Ser orPlas 16.36 ng/ml (>5.38)
[2022-12-26 22:14] LABS: Lyme Ab IgG w/WB Rflx Negative (Negative); Lyme Ab IgM w/WB Rflx Negative (Negative)
[2022-12-26] MEDS ORDERED: ACETAMINOPHEN 1,000 MG/100 ML VIAL IV STA (23:01)
[2022-12-26] MEDS ORDERED: ACETAMINOPHEN 1,000 MG/100 ML VIAL IV PRN (23:48)
[2022-12-26] MEDS ORDERED: ONDANSETRON INJ 2 MG/ML 2 ML VIAL IV PRN (23:48)
[2022-12-27] MEDS: SODIUM CHLORIDE 0.9% 1000ML 1,000 ML IV SCH (00:12)
[2022-12-27] MEDS: PANTOprazole 40 MG in SYRINGE 0 ML IV SCH ×3 (00:27→19:48)
[2022-12-27] MEDS ORDERED: HYDROmorphone INJ 0.5 MG/0.5 ML SYR IV STA ×2 (00:33→05:54)
[2022-12-27] MEDS ORDERED: metroNIDAZOLE 500 MG/100 ML BAG IV STA (03:27)
--- NOTE | 2022-12-27 04:09 | CT Scan Report ---
Exam(s): CT ABDOMEN + PELVIS Without Contrast EXAM: CT Abdomen and Pelvis Without Intravenous Contrast CLINICAL HISTORY: Reason for exam: abd pain, recent bile duct stent insertion. TECHNIQUE: Axial computed tomography images of the abdomen and pelvis without intravenous contrast. CTDI is 23.5 mGy and DLP is 1181.22 mGy-cm. Automated exposure control was utilized for the study. A dose lowering technique was utilized adhering to the principles of ALARA. COMPARISON: No relevant prior studies available. FINDINGS: Lung bases: Unremarkable. No mass. No consolidation. Pleural space: Large right pleural effusion. Heart: Cardiomegaly. Prosthetic aortic valve. ABDOMEN: Liver: Unremarkable. Gallbladder and bile ducts: Distended, hydropic gallbladder measures 5. 5 cm, with mildly indistinct bladder wall. Common bile duct stent. Correlate for acute cholecystitis. Pancreas: Atrophy of the pancreas. No ductal dilation. Spleen: Unremarkable. No splenomegaly. Adrenals: Unremarkable. No mass. Kidneys and ureters: Hyperdense left lower pole renal cystic lesion, which may contain hemorrhagic or proteinaceous components. No obstructing stones. No hydronephrosis. Stomach and bowel: Diverticulosis, without acute diverticulitis. No small bowel obstruction. No free intraperitoneal air. PELVIS: Appendix: No findings to suggest acute appendicitis. Bladder: Unremarkable. No stones. Reproductive: Unremarkable as visualized. ABDOMEN and PELVIS: Intraperitoneal space: Unremarkable. No free air. No significant fluid collection. Bones/joints: Degenerative changes of the spine. No acute fracture. No dislocation. Soft tissues: Unremarkable. Vasculature: Atherosclerotic changes of the aorta. No abdominal aortic aneurysm. Lymph nodes: Unremarkable. No enlarged lymph nodes. IMPRESSION: 1. Distended, hydropic gallbladder measures 5.5 cm, with mildly indistinct bladder wall. Common bile duct stent. Correlate for acute cholecystitis. 2. Large right pleural effusion. 3. Diverticulosis, without acute diverticulitis. No small bowel obstruction. No free intraperitoneal air. Electronically signed by: Jean Paul Baez MD 12/27/22 04:08 AM
--- NOTE | 2022-12-27 07:10 | Electrocardiogram Report ---
Test Reason : Blood Pressure : / mmHG Vent. Rate : 079 BPM Atrial Rate : 079 BPM P-R Int : 230 ms QRS Dur : 104 ms QT Int : 426 ms P-R-T Axes : 099 065 207 degrees QTc Int : 488 ms Sinus rhythm with 1st degree A-V block with occasional Premature ventricular complexes Incomplete right bundle branch block Prolonged QT Abnormal ECG When compared with ECG of 12-DEC-2022 07:52, Premature ventricular complexes are now Present Premature atrial complexes are no longer Present Reconfirmed by Arley Rodriguez ([id number]) on 12/30/2022 6:10:51 PM Referred By: REFERRED SELF Confirmed By:Geraldo Rodriguez
[2022-12-27 07:11] LABS: Hematocrit (blood only) 27.4 % (42.0-52.0); Hemoglobin 8.9 g/dl (14.0-18.0); Mean Corpuscular Hgb Conc 32.5 g/dL (32.0-36.0); Mean Corpuscular Volume 101.5 fL (80.0-100.0); Mean Platelet Volume 10.5 fL (9.4-12.4); Platelet Count 164 K/uL (130-400); RDW Coefficient of Variation 18.7 % (11.5-14.5); RDW Standard Deviation 69.5 fL (36.4-46.3); White Blood Count 12.44 K/ul (4.8-10.8)
--- NOTE | 2022-12-27 07:22 | Hospitalist Progress Note ---
Date of Service December 27, 2022 Assessment & Plan (1) Epistaxis: Plan: 76 yo male with PMHx of paroxysmal afib, CAD, HFpEF, s/p TAVR, HTN, HLD, BPH, MARLON, depression, anxiety, epistaxis, CKD, anemia, and GERD presents with nose bleed and abdominal pain. Epistaxis | Anemia -Presented with 1 day abdominal pain. He did have a 12 hour episode of L nostril bleeding prior to admission and a subsequent black/tarry BM. -Recently was restarted on Eliquis, notes a history of prior nosebleeds on Eliquis -FOBT positive. Hgb 9.8 on admission, baseline ~11.5. Hgb this morning at 8.9. -He received cefepime in ED, although did meet SIRS criteria on admission- presentation appears most consistent with epistaxis secondary to Eliquis -CT A/P: distended gallbladder -GI consulted: low suspicion for GI bleed, could consider scope if signs of co ntinued bleed. Continue IV protonix H/o biliary sludge -CBD stent placed on 12/11/22. LFTs stable since last admission. -Follows with GI outpatient. Recommended removal of stent in 3 months Elevated troponin -trop 53, peaked. Suspect due to demand. EKG with chronic anterolateral ST depressions. Elevated d-dimer -ordered due to fluctuations in sob and HR. D-dimer 1970, however, he is with recent epistaxis. Also with recent CBD stent placement. HFpEF | Mitral regurgitation, chronic | s/p TAVR -he is with chronic sob, on 2L O2 at home. Previous echo EF 45-50%. Lungs clear on examination, do not suspect acute exacerbation at this time. CXR with no acute changes. -cont. metoprolol -hold home Lasix at this time. Per previous admission note, he was advised to only use diuretics with weight gain d/t CHF. Patient states he has been taking his lasix daily, dose unknown. Macrocytic Anemia/Poikilocytosis -evidenced on peripheral smear 12/09. Follows with heme/onc as outpatient. Bone marrow biopsy without evidence of myeloysplasia -cont. folic acid CAD -cont. statin, metoprolol -hold asa d/t possible GI bleed CKD, stage 3b -Cr wnl Afib -cont. metoprolol -hold Eliquis d/t epistaxis -monitor on telemetry Chronic sinusitis -cont. Flonase, loratadine HLD -cont. statin Anxiety, Depression -cont. Paxil, Wellbutrin BPH -cont. tamsulosin Anorexia, chronic -likely 2/2 cardiac cachexia in the setting of RHF/LHF -cont. Marinol bid -palliative consultation during previous admission DVT ppx: SCDs FEN/GI: regular Code Status: DNR/DNI Dispo: PCU (2) Abdominal pain: (3) Paroxysmal A-fib: (4) Heart failure with mildly reduced ejection fraction (HFmrEF): (5) Severe mitral regurgitation: (6) S/p TAVR (transcatheter aortic valve replacement), bioprosthetic: (7) Hypertension: (8) Sleep apnea: (9) Dyslipidemia: (10) BPH with obstruction/lower urinary tract symptoms: (11) CAD (coronary artery disease): (12) Depression with anxiety: (13) GERD (gastroesophageal reflux disease): (14) CKD (chronic kidney disease): (15) Anemia: Admission and Anticipated Discharge Date Admission Date: December 26, 2022 Supervising Physician Co-Signing Physician Notes I personally examined the patient and verified all tobar points of history and exam, discussed case, and agree with decision making with Dr Ca No meaningful HPI review of systems from patient. He is somewhat somnolent today. Extensive discussion with and daughtersee "goals of care" below. Vitals noted, in general he is somewhat somnolent but appears to be in no distress. He does keep sitting up but leaning over and slumping, and then he has to void. Breathing unlabored no accessory muscle use good effort. Skin shows no rashes no pallor or icterus. Neuro without focal deficits/lateralizing signs. Epistaxis/anemianosebleed seems to have resolved. Holding DOAC for now. No indications for transfusion melenaalmost certainly from nosebleed. Highly doubt was a concomitant GI bleed. Deliriumhis confusion at times, reaching for things that are not there, and now somnolent certainly fit with a delirium/metabolic en cephalopathydiscussed/explained to family atrial fibrillationresumption of DOAC will be contingent on his overall goals of careright now the family is thinking possibly doing something like every other day (we discussed risk of stroke versus risk of bleed, but that is much more nuanced given his overall short timeline/poor prognosis making risk of bleeding a bigger concern than normally when we are far more focused on risk of stroke and permanent sequelae) goals of carefrank and empathic discussion with and daughterthey are aware that he is dying of his cor pulmonale/congestive heart failure, and are understanding of not really wanting to pursue "trying to fix" things that cannot be "fixed". When extensive discussion on what changing to more of a palliative mindset would be, she has had a good discussion with our palliative service during his last admission as well, and she expresses a good understanding of this. She did express concern about giving him morphine, and noted that she did not like having to do that one of her dad was dying on hospicewe discussed that hospice is different than euthanasia, and that morphine really is only a role in hospice whenever somebody is having discomfort. We discussed that with the patient, the main thing would really be justhis medical decision making not towards what might "fix" things but more towards what would impart the most quality of life for what ever time he has left. They would like to get him home with them if they can, but expressed that right now he would be too weak. We discussed deliriums, and the fact that they often will take a months to clear even with no other setbacks, and that of course, unfortunately, his situation is right with potential for setbacks. Discussed giving things a few days to see how he vectors, and that if he continues to be in his current status quo, it would not be a failure on their part if they need to enlist the services of a [place] [facility] care facility to look after him physically so that they can simply be there as his family. They expressed understanding of this, reiterated that of course they would like to take him home, but that if its not feasible they would be willing to consider SNF. Otherwise as above Subjective Patient seen and examined at bedside. Patient very hard of hearing but responds verbally with cochlear implant in place. He denies any current pain in his abdomen and is resting in bed. Nose bleed has stopped. Review of Systems Review of Systems: As per above Physical Exam Constitutional: + frail appearing; no acute distress Eyes: Anicteric sclerae ENMT: External ears and nose normal. Moist mucous membranes. Respiratory: Normal respiratory efforts, supplemental oxygen via NC Cardiovascular: Rate/Rhythm: + irregularly irregular No significant lower extremity edema Gastrointestinal (Abdomen): Abdomen soft and nondistended. Nontender to palpation Skin: + pallor Neurologic: moves all extremities Psychiatric: Awake, intermittently alert Results & Data Results & Data Vital Signs (Past 12 Hours) Vital Signs Temp Pulse Pulse Resp BP Pulse Ox O2 Del Method 12/27/22 04:06 36.4 C L 103 H 20 113/78 100 Nasal Cannula 12/26/22 23:57 Room Air 12/26/22 23:45 36.4 C L 92 H 19 103/77 99 Room Air 12/26/22 22:45 94 H 25 H 97 12/26/22 22:30 93 H 26 H 116/74 100 12/26/22 21:58 91 H 12/26/22 21:30 78 24 100 12/26/22 21:15 90 26 H 99 12/26/22 21:00 98 H 24 105/77 100 12/26/22 20:45 79 25 H 97 12/26/22 20:30 88 24 104/60 99 12/26/22 20:15 103 H 22 99 12/26/22 20:00 87 25 H 97 Room Air 12/26/22 19:45 88 24 12/26/22 19:30 91 H 20 94 12/26/22 20:21 Room Air 12/26/22 20:00 78 23 112/59 L 100 O2 Flow Rate 12/27/22 04:06 3 12/26/22 23:57 12/26/22 23:45 12/26/22 22:45 12/26/22 22:30 12/26/22 21:58 12/26/22 21:30 12/26/22 21:15 12/26/22 21:00 12/26/22 20:45 12/26/22 20:30 12/26/22 20:15 12/26/22 20:00 12/26/22 19:45 12/26/22 19:30 12/26/22 20:21 12/26/22 20:00 Diagnostic Findings Chest X-Ray 12/26/22 17:19 SINGLE VIEW CHEST CLINICAL HISTORY: Sepsis. FINDINGS: An AP, portable, upright chest radiograph is compared to chest x-ray and chest CT dated 12/08/2022. There is evidence of previous cardiac valve surgery. The heart is enlarged noting atherosclerotic calcification of the thoracic aorta. The pulmonary vasculature is noncongested. Chronic interstitial thickening is similar to previous. There is mild bibasilar scarring/atelectasis. The lungs and pleural spaces are otherwise clear. No pneumothorax is seen. The skeletal structures are osteopenic. There are chronic/healed left-sided rib fractures. Arthritic change is noted in the shoulders. IMPRESSION: Cardiomegaly with no active disease in the chest. ACT 112: Negative or not required by law. Electronically signed by: Kimo Mora M.D. 12/26/2022 5:[address] 12/26/22 17:19 CT SCAN OF THE BRAIN WITHOUT IV CONTRAST CLINICAL HISTORY: Change in mental status COMPARISON STUDY: CT of the brain dated 11/16/2022. TECHNIQUE: Unenhanced axial CT scan of the brain is performed from the vertex to the skull base. A dose lowering technique was utilized adhering to the principles of ALARA. The examination is significantly degraded by streak artifact from electronic devices along the bilateral occipital cortex. CT DOSE: 625.80 mGy.cm FINDINGS: Brain parenchyma: There is age-related involutional change noting moderate confluent subcortical and periventricular microangiopathic disease. There is no hemorrhage, mass effect, or evidence of acute territorial ischemia by CT criteria. Dozier-white matter differentiation is preserved. No extra-axial fluid collection is seen. Mineralization is noted in the basal ganglia. Ventricles, sulci, cisterns: Prominent secondary to involutional change. Intracranial vasculature: There is atherosclerotic calcification of the cavernous carotid and vertebral arteries. Calvarium: Unremarkable. Sinuses and mastoids: There is trace mucosal thickening right maxillary antrum. The remaining visualized paranasal sinuses are clear. There is evidence of previous bilateral mastoid surgery. The mastoid air cells are well pneumatized. Cerumen is noted in the external auditory canals. Orbits: The bony orbits are grossly intact. There are bilateral ocular lens implants. IMPRESSION: There is no evidence of hemorrhage, mass effect, or acute territorial ischemia by CT criteria. ACT 112: Negative or not required by law. Electronically signed by: Kimo Mora M.D. 12/26/2022 6:49 PM Abdomen/Pelvis CT 12/27/22 00:33 Exam(s): CT ABDOMEN + PELVIS Without Contrast EXAM: CT Abdomen and Pelvis Without Intravenous Contrast CLINICAL HISTORY: Reason for exam: abd pain, recent bile duct stent insertion. TECHNIQUE: Axial computed tomography images of the abdomen and pelvis without intravenous contrast. CTDI is 23.5 mGy and DLP is 1181.22 mGy-cm. Automated exposure control was utilized for the study. A dose lowering technique was utilized adhering to the principles of ALARA. COMPARISON: No relevant prior studies available. FINDINGS: Lung bases: Unremarkable. No mass. No consolidation. Pleural space: Large right pleural effusion. Heart: Cardiomegaly. Prosthetic aortic valve. ABDOMEN: Liver: Unremarkable. Gallbladder and bile ducts: Distended, hydropic gallbladder measures 5. 5 cm, with mildly indistinct bladder wall. Common bile duct stent. Correlate for acute cholecystitis. Pancreas: Atrophy of the pancreas. No ductal dilation. Spleen: Unremarkable. No splenomegaly. Adrenals: Unremarkable. No mass. Kidneys and ureters: Hyperdense left lower pole renal cystic lesion, which may contain hemorrhagic or proteinaceous components. No obstructing stones. No hydronephrosis. Stomach and bowel: Diverticulosis, without acute diverticulitis. No small bowel obstruction. No free intraperitoneal air. PELVIS: Appendix: No findings to suggest acute appendicitis. Bladder: Unremarkable. No stones. Reproductive: Unremarkable as visualized. ABDOMEN and PELVIS: Intraperitoneal space: Unremarkable. No free air. No significant fluid collection. Bones/joints: Degenerative changes of the spine. No acute fracture. No dislocation. Soft tissues: Unremarkable. Vasculature: Atherosclerotic changes of the aorta. No abdominal aortic aneurysm. Lymph nodes: Unremarkable. No enlarged lymph nodes. IMPRESSION: 1. Distended, hydropic gallbladder measures 5.5 cm, with mildly indistinct bladder wall. Common bile duct stent. Correlate for acute cholecystitis. 2. Large right pleural effusion. 3. Diverticulosis, without acute diverticulitis. No small bowel obstruction. No free intraperitoneal air. Electronically signed by: Jean Paul Baez MD 12/27/22 04:08 AM Resident Activity Tracking Resident Involvement: Resident Care Provided Care Provided: Adult [facility] (11) CAD (coronary artery disease) Associated angina: without angina Coronary Disease-Associated Artery/Lesion type: unspecified vessel or lesion type [place] vs. transplanted heart: unspecified whether [place] or transplanted heart Qualified Code(s): I25.10 - Atherosclerotic heart disease of [place] coronary artery without angina pectoris
[2022-12-27 07:27] LABS: Albumin Globulin Ratio 1.3 (0.9-2); Albumin Level 3.2 gm/dl (3.4-5.0); Creatinine Clr Calc Pharmacy 53.8 ml/min; Est GFR (African American) 74.9 ml/min; Est GFR (Non-African American) 64.6 ml/min; Globulin 2.5 gm/dl (2.5-4.0); Magnesium 1.8 mg/dl (1.7-2.4); Potassium 3.6 mmol/L (3.5-5.1); Total Protein 5.7 gm/dl (6.0-8.3)
[2022-12-27 07:46] LABS: INR 1.2 (0.9-1.1); Partial Thromboplastin Ratio 1.1; Partial Thromboplastin Time 31.4 Seconds (21.0-31.0); Prothrombin Time 13.5 Seconds (9.0-12.0)
[2022-12-27 07:57] LABS: Acanthocytes 2+; Basophils # (auto) 0.02 K/uL (0-0.2); Basophils % (auto) 0.2 %; Echinocytes 2+; Immature Granulocytes # (auto) 0.05 K/uL (0.01-0.20); Immature Granulocytes % (auto) 0.4 %; Lymphocytes # (auto) 0.14 K/uL (1.2-3.4); Lymphocytes % (auto) 1.1 %; Monocytes # (auto) 0.67 K/uL (0.11-0.59); Monocytes % (auto) 5.4 %; Neutrophils # (auto) 11.56 K/uL (1.40-6.50); Neutrophils % (auto) 92.9 %; Ovalocytes 1+; Polychromasia 1+
[2022-12-27] MEDS: PARoxetine HCL 20 MG TAB PO SCH (08:00)
[2022-12-27] MEDS: METOPROLOL TARTRATE 25 MG TAB PO SCH ×2 (08:00→19:47)
[2022-12-27] MEDS: LORATADINE 10 MG TAB PO SCH (08:00)
[2022-12-27] MEDS: FOLIC ACID 1 MG TAB PO SCH (08:00)
[2022-12-27] MEDS: buPROPion XL 150 MG TABCR PO SCH (08:00)
[2022-12-27] MEDS: FLUTICASONE PROPIONATE NA SPR 16 GM BTL SCH (08:11)
[2022-12-27] MEDS: droNABinol 2.5 MG CAP PO SCH ×2 (10:56→16:26)
--- NOTE | 2022-12-27 12:12 | Gastrointestinal Consultation ---
Date of Consultation December 27, 2022 Assessment & Plan (1) Epistaxis: (2) Melena: (3) Anemia: Most likely cause of his melena is from his epistaxis along with his anticoagulation. GB is distended on CT imaging, however, I do not believe he is a good surgical candidate at this time. Recommend Protonix 40 mg IV BID If he would continue to have melena, consider EGD during his hospitalization. Recommend supportive care at present. Transfuse PRN per the hospitalist team. He has seen Palliative care in the past, and further consultation with their service may also be considered. History of Present Illness Reason for Consultation: Questionable GI bleed Attending Physician: Kevin Harkins, DO History of Present Illness Yimi Snyder is a 77 yo CM with an extensive PMHx including Afib, CAD, CHF, s/p TAVR at [facility], CKD, and chronic anticoagulation. He was admitted to [facility] in mid- October with a heart failure exacerbation. He subsequently had a TAVR procedure at [facility] at the end of October. He was also admitted from 12/08 to 12/18 for general malaise and jaundice, and was seen by Hubert MAGANA. He was felt to have a component of Congestive hepatopathy, but did require an EUS/ERCP with biliary sphincterotomy and bile duct stent placement. He returned to the ER early this AM with complaints of epistaxis and abdominal pain with melena. His H/H upon discharge in November was 11.5/35.8 and was noted to be 8.9/27.4 this AM. He did undergo a CT abd/pelvis and was noted to have a distended GB, bile duct stent in place, Large Right Pleural effusion and diverticulosis. He was admitted and had his Eliquis held and was placed on IV Protonix twice daily. At the time I saw the patient, he was having difficulty hearing me as his cochlear implant device was not attached. His nurse reported that he had a single small black smear earlier this AM, but no further BM's. He did complain of RUQ abdominal pain. His nurse reported no other problems at present. Allergies Allergy/AdvReac Type Severity Reaction Status Date / Time baclofen Allergy Unknown PT & PT'S Verified 12/08/22 20:11 SPOUSE DENIES ANY ALLERGIES OR SENSATIVITY TO MED cyclobenzaprine Allergy Unknown PT & PT'S Verified 12/08/22 20:11 [From Flexeril] SPOUSE DENIES ANY ALLERGIES OR SENSATIVITY TO MED doxazosin Allergy Unknown PT & PT'S Verified 12/08/22 20:11 SPOUSE DENIES ANY ALLERGIES OR SENSATIVITY TO MED doxycycline Allergy Unknown PT & PT'S Verified 12/08/22 20:11 SPOUSE DENIES ANY ALLERGIES OR SENSATIVITY TO MED duloxetine Allergy Unknown PT & PT'S Verified 12/08/22 20:11 SPOUSE DENIES ANY ALLERGIES OR SENSATIVITY TO MED gabapentin Allergy Unknown PT & PT'S Verified 12/08/22 20:11 SPOUSE DENIES ANY ALLERGIES OR SENSATIVITY TO MED lisinopril Allergy Unknown PT & PT'S Verified 12/08/22 20:11 SPOUSE DENIES ANY ALLERGIES OR SENSATIVITY TO MED naproxen Allergy Unknown PT & PT'S Verified 12/08/22 20:11 SPOUSE DENIES ANY ALLERGIES OR SENSATIVITY TO MED nortriptyline [From Pamelor] Allergy Unknown PT & PT'S Verified 12/08/22 20:11 SPOUSE DENIES ANY ALLERGIES OR SENSATIVITY TO MED oxcarbazepine Allergy Unknown PT & PT'S Verified 12/08/22 20:11 SPOUSE DENIES ANY ALLERGIES OR SENSATIVITY TO MED Penicillins Allergy Unknown PT & PT'S Verified 12/08/22 20:11 SPOUSE DENIES ANY ALLERGIES OR SENSATIVITY TO MED Home Medications Medication Instructions Recorded Confirmed Type acetaminophen 500 mg tablet 1,000 mg PO TID PRN fever or pain 11/18/18 12/26/22 Rx #90 tabs aspirin 81 mg tablet,delayed 81 mg PO DAILY #90 tabs 06/09/22 12/26/22 Rx release Wheelchair (Manual) #1 ea 09/17/22 12/26/22 Rx Oxygen Home #1 ea 10/12/22 12/26/22 Rx atorvastatin 80 mg tablet 80 mg PO HS #90 tabs 11/05/22 12/26/22 Rx bupropion HCl 150 mg 24 hr tablet, 150 mg PO QAM #90 tabs 11/05/22 12/26/22 Rx extended release (Wellbutrin XL) fluticasone propionate 50 2 spray intranasal DAILY #48 grams 11/05/22 12/26/22 Rx mcg/actuation nasal spray,suspension (Flonase Allergy Relief) pantoprazole 40 mg tablet,delayed 40 mg PO DAILY #90 tabs 11/05/22 12/26/22 Rx release paroxetine HCl 40 mg tablet 40 mg PO QAM #90 tabs 11/05/22 12/26/22 Rx potassium chloride 20 mEq 20 meq PO QAM #90 tabs 11/05/22 12/26/22 Rx tablet,extended release tamsulosin 0.4 mg capsule 0.4 mg PO HS #90 caps 11/05/22 12/26/22 Rx loratadine 10 mg tablet 10 mg PO DAILY 11/09/22 12/26/22 History apixaban 5 mg tablet (Eliquis) 5 mg PO BID 30 days #60 tabs 12/18/22 12/26/22 Rx dronabinol 2.5 mg capsule (Marinol) 2.5 mg PO BID #28 caps 12/18/22 12/26/22 Rx folic acid 1 mg tablet 1 mg PO QAM 30 days #30 tabs 12/18/22 12/26/22 Rx metoprolol tartrate 25 mg tablet 12.5 mg PO BID 30 days #30 tabs 12/18/22 12/26/22 Rx furosemide 20 mg tablet 20 mg PO QAM 12/26/22 12/26/22 History Patient History Medical History (Updated 12/27/22 @ 12:19 by Adam Liao, DO) Acute heart failure with preserved ejection fraction Acute metabolic encephalopathy Acute on chronic heart failure with preserved ejection fraction (HFpEF) Aneurysm, thoracic aortic pt unaware of size, follows with Dr. Paige Aortic atherosclerosis Aortic stenosis, severe Atrial fibrillation Atrial fibrillation with rapid ventricular response BPH with obstruction/lower urinary tract symptoms CAD (coronary artery disease) Cervical disc disease CHF (congestive heart failure) Chronic anticoagulation Chronic sinusitis Cognitive disorder Colitis Coronary artery calcification Depression with anxiety DVT (deep venous thrombosis) Dyslipidemia Elevated LFTs Encounter for pre-operative examination Glaucoma Hearing loss Hepatic steatosis History of central retinal vein occlusion Hypertension Hypotension Iron deficiency Lower GI bleed no current issues Lumbar spinal stenosis Lymphopenia Mitral regurgitation MVP (mitral valve prolapse) Osteoarthritis PAC (premature atrial contraction) Palliative care encounter Pleural effusion on right Recurrent epistaxis Red blood cell abnormality Sleep apnea Trigeminal neuralgia received radiation for this, having numbess/tingling to right side of face since this Vitamin D deficiency Surgical History H/O cataract extraction (2013) H/O colonoscopy History of cochlear implant (01/12/12) BILATERAL History of pilonidal cyst removed History of umbilical hernia repair S/P foot surgery, right (12/2010) removal of heel spur S/P laser trabeculoplasty of eye (10/2014) b/l S/P nasal endoscopy with nasal polypectomy (2011) S/P rotator cuff repair b/l shoulders S/p TAVR (transcatheter aortic valve replacement), 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) Family History Mother No pertinent family history Other Hypertension Denies family history of Ovarian cancer Prostate cancer Diabetes Myocardial infarction Breast cancer Colorectal cancer Cancer Social History Smoking Status: Never smoker Tobacco Type: Cigarettes Second Hand Exposure: No; Do You Dip or Chew Tobacco: No; Hx Alcohol Use: No Hx Substance Use: No Preferred Language: Pan[place]ian Communication Ability: Effective Visual Impairment: No Limitations Hearing Ability: Cochlear Implant Furnace Room Supervisor Required: No Beliefs That Will Affect Care: None marital status: Current Living Situation: Spouse Current Living Situation Comment: with and daughter current occupational status: retired How many Children do You have: 1 Other Information That Helps Us Care for You: No Feels Safe at Home: Yes Safety Concerns: Feels Safe At This Time Childhood Exposure to Second-Hand Smoke: Yes Diet: regular Diet Comment: regular caffeine: Yes (Soda 6 per day. Coffee 1 cup per day.) during the past year weight has: remained stable Dental Care, Regularly: No Physical Activity Frequency: Daily Seatbelt Use: sometimes Sunscreen Use: No Assistive Devices: Cane, CPAP, Oxygen - at Night and Walker Review of Systems Review of Systems: Other Unobtainable due to difficulty hearing Physical Exam Constitutional: WD/WN, vitals as above Respiratory: normal respiratory effort, lungs clear to auscultation Cardiovascular: Rate/Rhythm: regular rate and regular rhythm Heart Sounds: + murmur Gastrointestinal (Abdomen): Inspection/Auscultation: abdomen normal to inspection Percussion/Palpation: + abdomen tender and abdomen soft Tender RUQ Results & Data Vital Signs (Past 12 Hours) Vital Signs Temp Pulse Pulse Resp BP Pulse Ox O2 Del Method 12/27/22 11:49 36.4 C L 106 H 16 132/69 93 Nasal Cannula 12/27/22 08:00 Nasal Cannula 12/27/22 08:00 102 H 12/27/22 07:53 36.8 C 101 H 16 136/76 96 Nasal Cannula 12/27/22 04:06 36.4 C L 103 H 20 113/78 100 Nasal Cannula O2 Flow Rate 12/27/22 11:49 2 12/27/22 08:00 2 12/27/22 08:00 12/27/22 07:53 2 12/27/22 04:06 3 PG Care Time/CCT Total # of Minutes Spent Total Time Spent with Patient: Total time spent is greater than 50% in coordination of care (as documented) at patient's floor/unit and/or counseling patient: Coding Level of Care Code 76698 IN/OBS CONSULT LVL 4,60M Diagnoses Epistaxis R04.0 Melena K92.1 Anemia D64.9
--- NOTE | 2022-12-27 18:42 | Billing Data ---
Date of Service December 27, 2022 Coding Level of Care Code 50642 SUB INP/OBS CARE MIN
--- NOTE | 2022-12-27 19:12 | Billing Data ---
Date of Service December 27, 2022 Coding Level of Care Code 61234 INT INP/OBS CARE
[2022-12-27 19:19] LABS: Albumin Level 3.3 gm/dl (3.4-5.0); Bilirubin Direct 1.4 mg/dl (0-0.2); Bilirubin,Total 3.6 mg/dl (0.2-1.0)
[2022-12-27] MEDS: TAMSULOSIN HCL 0.4 MG CAP PO SCH (19:48)
[2022-12-27] MEDS: ATORVASTATIN 40 MG TAB PO SCH (19:48)
--- NOTE | 2022-12-28 07:43 | Hospitalist Progress Note ---
"Date of Service December 28, 2022 Assessment & Plan (1) Epistaxis: Plan: Yimi Snyder is a 76 year-old male with PMHx of paroxysmal afib, CAD, HFpEF, s/p TAVR, HTN, HLD, BPH, MARLON, depression, anxiety, epistaxis, CKD, anemia, and GERD presents with nose bleed and abdominal pain. Anemia Secondary to Epistaxis -Presented with 1 day abdominal pain. He did have a 12 hour episode of L nostril bleeding prior to admission and a subsequent black/tarry BM. -Recently was restarted on Eliquis, notes a history of prior nosebleeds on Eliquis -FOBT positive. Hgb 9.8 on admission, baseline ~11.5. Hgb this morning at 8.2 -Received cefepime in ED, although did meet SIRS criteria on admission- presentation appears most consistent with epistaxis secondary to Eliquis -GI consulted: low suspicion for GI bleed, could consider scope if signs of cont inued bleed. Will continue IV Protonix -Discussed with patient's and daughter about plan for restarting/stopping Eliquis and possible consequences -They expressed their concern about being able to care for him at home H/o biliary sludge -CBD stent placed on 12/11/22. LFTs stable since last admission. -Follows with GI outpatient. Recommended removal of stent in 3 months HFpEF | Mitral regurgitation, chronic | s/p TAVR -he is with chronic sob, on 2L O2 at home. Previous echo EF 45-50%. Lungs clear on examination, do not suspect acute exacerbation at this time. CXR with no acute changes. -Continue metoprolol -Hold home Lasix at this time. Per previous admission note, he was advised to only use diuretics with weight gain d/t CHF. Elevated troponin -trop 53, peaked. Suspect due to demand. EKG with chronic anterolateral ST depressions. Elevated d-dimer -ordered due to fluctuations in sob and HR. D-dimer 1970, however, he is with recent epistaxis. Also with recent CBD stent placement. Macrocytic Anemia/Poikilocytosis -evidenced on peripheral smear 12/09. Follows with heme/onc as outpatient. Bone marrow biopsy without evidence of myelodysplasias -Continue folic acid CAD -Continue statin, metoprolol -hold asa d/t possible GI bleed CKD, stage 3b -Creatinine WNL Hypokalemia -Potassium at 2.8 this morning, ordered repletion of 60meq -Ordered repeat BMP for this afternoon and repeat tomorrow a.m. Afib -Continue metoprolol -Hold Eliquis d/t epistaxis -Monitor on telemetry Chronic sinusitis -Continue Flonase, loratadine HLD -Continue statin Anxiety, Depression -Continue Paxil, Wellbutrin BPH -Continue tamsulosin Anorexia, chronic -Likely 2/2 cardiac cachexia in the setting of RHF/LHF -Continue Marinol BID -Palliative consultation during previous admission DVT ppx: SCDs FEN/GI: regular Code Status: DNR/DNI Dispo: PCU (2) Abdominal pain: (3) Paroxysmal A-fib: (4) Heart failure with mildly reduced ejection fraction (HFmrEF): (5) Severe mitral regurgitation: (6) S/p TAVR (transcatheter aortic valve replacement), bioprosthetic: (7) Hypertension: (8) Sleep apnea: (9) Dyslipidemia: (10) BPH with obstruction/lower urinary tract symptoms: (11) CAD (coronary artery disease): (12) Depression with anxiety: (13) GERD (gastroesophageal reflux disease): (14) CKD (chronic kidney disease): (15) Anemia: Admission and Anticipated Discharge Date Admission Date: December 26, 2022 Supervising Physician Co-Signing Physician Notes Attending attestation Pt seen and examined in concert with Dr. Ca. In agreement with the documented findings as noted in the resident documentation with any exceptions or additions as noted here. No meaningful history from patient, no acute complaints in response to query. Spouse and daughter at bedside. On examination, S1/S2 nl IRR. CTAB. Abd NT/ND BS+ve Anemia, acute blood loss in the setting of macrocytic anemia with epistaxis - hemoglobin downtrending today but with improving sx, no further visible bleeding. GI consult appreciated. Continue PPI BID. Monitor hgb daily and if plateau will discuss AC resume vs. alternative plans for goals of care Chronic dementia with possible acute metabolic encephalopathy - monitor with treatment of underlying cause elevated D-dimer - hold on V/Q today and monitor for status with further goals of care conversation with change in clinical status Extensive GOC conversation today re: AC and course of care generally re: interventional vs. palliative and encouragement to consider patient wishes and impacts of ongoing care Else see resident documentation as noted. Subjective Patient seen and examined at bedside. No acute events overnight. Patient intermittently complains of right upper quadrant pain, has been sleeping after receiving pain medication. Spoke with patient's daughter and at bedside. D enies dizziness or lightheadedness. Nursing notes some dark colored stools in small volumes. Review of Systems Review of Systems: As per above Physical Exam Constitutional: + frail appearing; no acute distress Eyes: + anicteric sclerae ENMT: Ears: no external ear abnormality Nose: no external nose abnormality Respiratory: No increased respiratory efforts. Cardiovascular: Rate/Rhythm: + irregularly irregular Gastrointestinal (Abdomen): Tenderness to palpation of right upper quadrant, +bowel sounds. Abdomen nondistended Skin: + pallor Neurologic: moves all extremities Results & Data Results & Data Vital Signs (Past 12 Hours) Vital Signs Temp Pulse Pulse Resp BP BP Pulse Ox 12/28/22 03:25 36.6 C 87 18 104/65 99 12/28/22 01:33 100/67 12/27/22 23:41 36.8 C 86 20 96/68 L 99 12/27/22 22:49 87 12/27/22 20:00 12/27/22 19:58 158 H O2 Del Method O2 Flow Rate 12/28/22 03:25 Nasal Cannula 2 12/28/22 01:33 12/27/22 23:41 Nasal Cannula 2.0 12/27/22 22:49 12/27/22 20:00 Nasal Cannula 12/27/22 19:58 Resident Activity Tracking Resident Involvement: Resident Care Provided Care Provided: Adult [facility] (11) CAD (coronary artery disease) Associated angina: without angina Coronary Disease-Associated Artery/Lesion type: unspecified vessel or lesion type [place] vs. transplanted heart: unspecified whether [place] or transplanted heart Qualified Code(s): I25.10 - A therosclerotic heart disease of [place] coronary artery without angina pectoris"
[2022-12-28 07:52] LABS: Hematocrit (blood only) 25.1 % (42.0-52.0); Hemoglobin 8.2 g/dl (14.0-18.0); Mean Corpuscular Hemoglobin 33.2 pg (25.0-34.0); Mean Corpuscular Hgb Conc 32.7 g/dL (32.0-36.0); Mean Corpuscular Volume 101.6 fL (80.0-100.0); Mean Platelet Volume 11.9 fL (9.4-12.4); Platelet Count 151 K/uL (130-400); RDW Coefficient of Variation 18.9 % (11.5-14.5); RDW Standard Deviation 70.2 fL (36.4-46.3); Red Blood Count 2.47 M/uL (4.70-6.10); White Blood Count 13.79 K/ul (4.8-10.8)
[2022-12-28] MEDS: FOLIC ACID 1 MG TAB PO SCH (08:04)
[2022-12-28] MEDS: LORATADINE 10 MG TAB PO SCH (08:04)
[2022-12-28] MEDS: FLUTICASONE PROPIONATE NA SPR 16 GM BTL SCH (08:04)
[2022-12-28] MEDS: METOPROLOL TARTRATE 25 MG TAB PO SCH ×2 (08:04→20:11)
[2022-12-28] MEDS: buPROPion XL 150 MG TABCR PO SCH (08:04)
[2022-12-28] MEDS: PARoxetine HCL 20 MG TAB PO SCH (08:04)
[2022-12-28] MEDS: PANTOprazole 40 MG in SYRINGE 0 ML IV SCH ×2 (08:05→20:11)
[2022-12-28 08:13] LABS: Acanthocytes 2+; Basophils # (auto) 0.02 K/uL (0-0.2); Basophils % (auto) 0.1 %; Immature Granulocytes # (auto) 0.44 K/uL (0.01-0.20); Immature Granulocytes % (auto) 3.2 %; Lymphocytes % (auto) 2.2 %; Monocytes # (auto) 0.83 K/uL (0.11-0.59); Neutrophils % (auto) 88.5 %; Polychromasia 1+
[2022-12-28] MEDS: HYDROmorphone INJ 0.5 MG/0.5 ML SYR IV PRN (08:14)
[2022-12-28 08:18] LABS: Albumin Globulin Ratio 1.2 (0.9-2); Albumin Level 2.9 gm/dl (3.4-5.0); BUN Creatinine Ratio 44.1 (10-20); Bilirubin,Total 3.7 mg/dl (0.2-1.0); Calcium 8.9 mg/dl (8.6-10.3); Creatinine Clr Calc Pharmacy 53.8 ml/min; Est GFR (African American) 74.9 ml/min; Est GFR (Non-African American) 64.6 ml/min; Globulin 2.5 gm/dl (2.5-4.0); Potassium 2.8 mmol/L (3.5-5.1); Total Protein 5.4 gm/dl (6.0-8.3)
[2022-12-28] MEDS: POTASSIUM CHLORIDE / WTR 10 MEQ/100 ML PLCT IV SCH ×6 (09:11→14:36)
--- NOTE | 2022-12-28 09:49 | Communication Note ---
Date of Service: December 28, 2022 Patient is a 77 yo male who had a 12 hour nosebleed while on Eliquis. He was seen by Dr. Liao over the weekend for this issue because he developed anemia. Current H/H is 8.2/25.1 He has had dark stools during this admission. He just had an EGD on 12/11/22 that showed mild esophagitis. He is on a regular diet. He is taking IV Protonix 40 mg BID. Would advise continuing to monitor H/H, continuation of PPI, & if patient's melena were to worse would then consider EGD, though it is unlikely to be significantly changed since his EGD on 12/11/22.
[2022-12-28] MEDS: droNABinol 2.5 MG CAP PO SCH ×2 (12:02→15:55)
[2022-12-28 16:44] LABS: Calcium 8.6 mg/dl (8.6-10.3); Creatinine Clr Calc Pharmacy 47.7 ml/min; Est GFR (African American) 64.9 ml/min; Magnesium 1.9 mg/dl (1.7-2.4); Potassium 3.7 mmol/L (3.5-5.1)
[2022-12-28] MEDS: TAMSULOSIN HCL 0.4 MG CAP PO SCH (20:11)
[2022-12-28] MEDS: ATORVASTATIN 40 MG TAB PO SCH (20:11)
[2022-12-29] MEDS: HYDROmorphone INJ 0.5 MG/0.5 ML SYR IV PRN (01:00)
[2022-12-29 07:48] LABS: Hematocrit (blood only) 23.6 % (42.0-52.0); Hemoglobin 7.8 g/dl (14.0-18.0); Mean Corpuscular Hemoglobin 32.8 pg (25.0-34.0); Mean Corpuscular Hgb Conc 33.1 g/dL (32.0-36.0); Mean Corpuscular Volume 99.2 fL (80.0-100.0); Mean Platelet Volume 11.6 fL (9.4-12.4); Platelet Count 161 K/uL (130-400); RDW Standard Deviation 64.4 fL (36.4-46.3); Red Blood Count 2.38 M/uL (4.70-6.10); White Blood Count 12.56 K/ul (4.8-10.8)
[2022-12-29 08:08] LABS: Acanthocytes 3+; Albumin Level 2.7 gm/dl (3.4-5.0); BUN Creatinine Ratio 46.6 (10-20); Basophils # (auto) 0.01 K/uL (0-0.2); Basophils % (auto) 0.1 %; Bilirubin,Total 3.4 mg/dl (0.2-1.0); Calcium 8.7 mg/dl (8.6-10.3); Creatinine Clr Calc Pharmacy 44.9 ml/min; Est GFR (African American) 60.2 ml/min; Est GFR (Non-African American) 51.9 ml/min; Globulin 2.7 gm/dl (2.5-4.0); Immature Granulocytes # (auto) 0.16 K/uL (0.01-0.20); Immature Granulocytes % (auto) 1.3 %; Lymphocytes # (auto) 0.29 K/uL (1.2-3.4); Lymphocytes % (auto) 2.3 %; Monocytes # (auto) 0.85 K/uL (0.11-0.59); Monocytes % (auto) 6.8 %; Neutrophils # (auto) 11.25 K/uL (1.40-6.50); Neutrophils % (auto) 89.5 %; Potassium 3.5 mmol/L (3.5-5.1); Total Protein 5.4 gm/dl (6.0-8.3)
[2022-12-29] MEDS: FLUTICASONE PROPIONATE NA SPR 16 GM BTL SCH (08:39)
[2022-12-29] MEDS: buPROPion XL 150 MG TABCR PO SCH (08:39)
[2022-12-29] MEDS: FOLIC ACID 1 MG TAB PO SCH (08:39)
[2022-12-29] MEDS: PANTOprazole 40 MG in SYRINGE 0 ML IV SCH ×2 (08:40→19:34)
[2022-12-29] MEDS: LORATADINE 10 MG TAB PO SCH (08:40)
[2022-12-29] MEDS: PARoxetine HCL 20 MG TAB PO SCH (08:40)
[2022-12-29] MEDS: METOPROLOL TARTRATE 25 MG TAB PO SCH ×3 (08:46→21:01)
[2022-12-29] MEDS ORDERED: SODIUM CHLORIDE 0.9% 250 ML IV PRN ×2 (10:38→12:45)
--- NOTE | 2022-12-29 10:41 | Hospitalist Progress Note ---
"Date of Service December 29, 2022 Assessment & Plan (1) Epistaxis: Plan: Yimi Snyder is a 76 year-old male with PMHx of paroxysmal afib, CAD, HFpEF, s/p TAVR, HTN, HLD, BPH, MARLON, depression, anxiety, epistaxis, CKD, anemia, and GERD presents with nose bleed and abdominal pain. Anemia Secondary to Epistaxis -Presented with 1 day abdominal pain. He did have a 12 hour episode of L nostril bleeding prior to admission and a subsequent black/tarry BM. -Recently was restarted on Eliquis, notes a history of prior nosebleeds on Eliquis -FOBT positive. Hgb 9.8 on admission, baseline ~11.5. -Received cefepime in ED, although did meet SIRS criteria on admission- presentation appears most consistent with epistaxis secondary to Eliquis -GI consulted: low suspicion for GI bleed, could consider scope if signs of continued bleed. Will continue IV Protonix -Discussed with patient's and daughter about plan for restarting/stopping Eliquis and possible consequences -They expressed their concern about being able to care for him at home -Received 1 unit PRBCs today (12/29) due to elevated HR and hemoglobin at 7.9 H/o biliary sludge -CBD stent placed on 12/11/22. LFTs stable since last admission. -Follows with GI outpatient. Recommended removal of stent in 3 months HFpEF | Mitral regurgitation, chronic | s/p TAVR -he is with chronic sob, on 2L O2 at home. Previous echo EF 45-50%. Lungs clear on examination, do not suspect acute exacerbation at this time. CXR with no acute changes. -Continue metoprolol -Hold home Lasix at this time. Per previous admission note, he was advised to only use diuretics with weight gain d/t CHF. Elevated troponin -trop 53, peaked. Suspect due to demand. EKG with chronic anterolateral ST depressions. Elevated d-dimer -ordered due to fluctuations in sob and HR. D-dimer 1970, however, he is with recent epistaxis. Also with recent CBD stent placement. Macrocytic Anemia/Poikilocytosis -evidenced on peripheral smear 12/09. Follows with heme/onc as outpatient. Bone marrow biopsy without evidence of myelodysplasias -Continue folic acid CAD -Continue statin, metoprolol -hold asa d/t possible GI bleed CKD, stage 3b -Creatinine WNL Hypokalemia -Potassium at 2.8 this morning, ordered repletion of 60meq -Ordered repeat BMP for this afternoon and repeat tomorrow a.m. Afib -Continue metoprolol -Hold Eliquis d/t epistaxis -Monitor on telemetry Chronic sinusitis -Continue Flonase, loratadine HLD -Continue statin Anxiety, Depression -Continue Paxil, Wellbutrin BPH -Continue tamsulosin Anorexia, chronic -Likely 2/2 cardiac cachexia in the setting of RHF/LHF -Continue Marinol BID -Palliative consultation during previous admission DVT ppx: SCDs FEN/GI: regular Code Status: DNR/DNI Dispo: PCU (2) Abdominal pain: (3) Paroxysmal A-fib: (4) Heart failure with mildly reduced ejection fraction (HFmrEF): (5) Severe mitral regurgitation: (6) S/p TAVR (transcatheter aortic valve replacement), bioprosthetic: (7) Hypertension: (8) Sleep apnea: (9) Dyslipidemia: (10) BPH with obstruction/lower urinary tract symptoms: (11) CAD (coronary artery disease): (12) Depression with anxiety: (13) GERD (gastroesophageal reflux disease): (14) CKD (chronic kidney disease): (15) Anemia: Admission and Anticipated Discharge Date Admission Date: December 26, 2022 Supervising Physician Co-Signing Physician Notes Attending attestation Pt seen and examined in concert with Dr. Ca. In agreement with the documented findings as noted in the resident documentation with any exceptions or additions as noted here. Responsive and alert without meaningful responses, though more somnolent than yesterday. Does not appear discomfited. On examination, S1/S2 nl IRR. CTAB. Abd NT/ND BS+ve Anemia, acute blood loss in the setting of macrocytic anemia with epistaxis - hgb 7.8 this AM with increased HR in the setting of chronic, complicated cardiac disease - transfuse 1 unit PRBC and monitor closely. Continue PPI and monitor hgb post txf and in AM. Baseline dementia with possibility for metabolic encephalopathy - monitor for changes Hypokalemia, hypomagnesemia - repleted Else see resident documentation as noted. Subjective Patient seen and examined at bedside. No acute events overnight. Is sleeping soundly, is very hard of hearing. Review of Systems Review of Systems: As per above Physical Exam Constitutional: + frail appearing; no acute distress Eyes: + anicteric sclerae ENMT: Ears: no external ear abnormality Nose: no external nose abnormality Cardiovascular: Rate/Rhythm: + irregularly irregular Gastrointestinal (Abdomen): Abdomen nondistended Skin: + pallor Psychiatric: Somnolent Results & Data Results & Data Vital Signs (Past 12 Hours) Vital Signs Temp Pulse Pulse Resp BP BP Pulse Ox 12/29/22 07:45 108 H 12/29/22 07:45 12/29/22 08:00 36.4 C L 110 H 18 90/66 L 97 12/29/22 03:12 36.3 C L 103 H 18 87/62 L 99 12/28/22 23:22 104 H 12/28/22 23:05 37.3 C 103 H 20 94/62 L 100 O2 Del Method O2 Flow Rate 12/29/22 07:45 12/29/22 07:45 Nasal Cannula 2 12/29/22 08:00 Room Air 12/29/22 03:12 Nasal Cannula 2.0 12/28/22 23:22 12/28/22 23:05 Nasal Cannula 2.0 Resident Activity Tracking Resident Involvement: Resident Care Provided Care Provided: Adult Hospital Medicine (11) CAD (coronary artery disease) Associated angina: without angina Coronary Disease-Associated Artery/Lesion type: unspecified vessel or lesion type [place] vs. transplanted heart: unspecified whether [place] or transplanted heart Qualified Code(s): I25.10 - Atherosclerotic heart disease of [place] coronary artery without angina pectoris"
[2022-12-29] MEDS: POTASSIUM CHLORIDE / WTR 10 MEQ/100 ML PLCT IV SCH ×6 (11:01→17:24)
[2022-12-29] MEDS: MAGNESIUM SULFATE / D5W 1 GM/100 ML BAG IV SCH ×2 (11:01→13:00)
[2022-12-29 11:13] LABS: Hematocrit (blood only) 24.4 % (42.0-52.0); Hemoglobin 7.9 g/dl (14.0-18.0)
[2022-12-29] MEDS: droNABinol 2.5 MG CAP PO SCH ×2 (12:17→17:00)
--- NOTE | 2022-12-29 12:48 | Communication Note ---
Date of Service: December 29, 2022 I did contact the patient's , Lianna Snyder, via phone and obtained verbal consent for blood transfusion for the patient after discussion of risks and benefits. The patient's did provide consent for this procedure and I subsequently ordered 1u pRBC.
[2022-12-29 16:46] LABS: Hematocrit (blood only) 28.2 % (42.0-52.0); Hemoglobin 9.2 g/dl (14.0-18.0)
[2022-12-29] MEDS: TAMSULOSIN HCL 0.4 MG CAP PO SCH (19:35)
[2022-12-29] MEDS: ATORVASTATIN 40 MG TAB PO SCH (19:35)
[2022-12-29] MEDS: SODIUM CHLORIDE 0.9% 1000ML 1,000 ML IV SCH (22:05)
[2022-12-30] MEDS: HYDROmorphone INJ 0.5 MG/0.5 ML SYR IV PRN ×3 (00:30→21:57)
[2022-12-30] MEDS ORDERED: HYDROmorphone INJ 0.5 MG/0.5 ML SYR IV STA (02:47)
[2022-12-30 03:42] LABS: Babesia microti DNA Not Detected (Not Detected)
[2022-12-30] MEDS ORDERED: ADENOSINE IV SOLN 3 MG/ML 2 ML VIAL IV ONE ×2 (05:21→05:28)
[2022-12-30] MEDS ORDERED: METOPROLOL TARTRATE 1 MG/ML VIAL IV STA ×2 (05:35→21:50)
[2022-12-30] MEDS ORDERED: METOPROLOL TARTRATE 1 MG/ML VIAL IV ONE (05:37)
[2022-12-30] MEDS ORDERED: MAGNESIUM SULFATE / D5W 1 GM/100 ML BAG IV ONE (05:39)
[2022-12-30] MEDS ORDERED: SODIUM CHLORIDE 0.9% 1000ML 250 ML IV ONE ×2 (05:39→05:52)
[2022-12-30] MEDS ORDERED: STAT IV Infusion **Titration per Protocol STA (05:48)
[2022-12-30] MEDS ORDERED: AMIODARONE / D5W 150 MG/100 ML BAG IV STA (05:48)
[2022-12-30] MEDS ORDERED: 0.2 MICRON FILTER SET 1 EACH IV STA (05:48)
[2022-12-30] MEDS ORDERED: AMIODARONE IV BOLUS & DRIP IV STA (05:48)
[2022-12-30] MEDS ORDERED: AMIODARONE 150MG / 100ML D5W IV ONE (05:50)
[2022-12-30] MEDS ORDERED: AMIODARONE 360MG / 200ML D5W IV ONE (05:51)
[2022-12-30] MEDS ORDERED: AMIODARONE / D5W 360 MG/200 ML BAG IV ONE (06:00)
[2022-12-30 06:31] LABS: Hematocrit (blood only) 30.6 % (42.0-52.0); Hemoglobin 10.1 g/dl (14.0-18.0); Mean Corpuscular Hemoglobin 32.4 pg (25.0-34.0); Mean Corpuscular Volume 98.1 fL (80.0-100.0); Nucleated RBC # (auto) 0.05 K/uL (0-0.12); Nucleated RBC % (auto) 0.4 %; Platelet Count 179 K/uL (130-400); RDW Coefficient of Variation 19.7 % (11.5-14.5); Red Blood Count 3.12 M/uL (4.70-6.10); White Blood Count 11.89 K/ul (4.8-10.8)
--- NOTE | 2022-12-30 06:35 | Communication Note ---
Date of Service: December 30, 2022 Earlier in the night, pt was moaning in pain and sob for about 3 minutes. Upon looking at tele, it appears he went into SVT at that time with HRs in the 190s. Then around 0500, I was notified patient was sustaining SVT with HRs in 190s. He was becoming less and less responsive and BP was 80 systolic. Pt was beginning to become pale at this time however pulses intact. Confirming SVT with EKG, we pushed adenosine 6mg and then 5 minutes later pushed another 12mg. During this time, he was going back and forth from NSR and SVT. We then pushed 5mg lopress or. Gave bolus of 250ml NSS x2, 1 bag mag. He finally converted and sustained a NSR. Color improved. Started him on amio bolus/drip. He is DNR/DNI. Currently stable. Resident Activity Tracking Resident Involvement: Resident Care Provided Care Provided: Adult Hospital Medicine
[2022-12-30 06:36] LABS: Magnesium 2.8 mg/dl (1.7-2.4)
[2022-12-30 06:38] LABS: BUN Creatinine Ratio 43.4 (10-20); Calcium 8.6 mg/dl (8.6-10.3); Creatinine Clr Calc Pharmacy 47.7 ml/min; Est GFR (African American) 58.6 ml/min; Est GFR (Non-African American) 50.5 ml/min; Globulin 3.1 gm/dl (2.5-4.0); Potassium 3.9 mmol/L (3.5-5.1); Total Protein 6.1 gm/dl (6.0-8.3)
[2022-12-30 06:48] LABS: Troponin I High Sensitivity 603.4 pg/ml (0-20)
[2022-12-30 07:02] LABS: Basophils # (auto) 0.03 K/uL (0-0.2); Basophils % (auto) 0.3 %; Eosinophils # (auto) 0.01 K/uL (0-0.50); Eosinophils % (auto) 0.1 %; Immature Granulocytes # (auto) 0.16 K/uL (0.01-0.20); Immature Granulocytes % (auto) 1.3 %; Lymphocytes # (auto) 0.52 K/uL (1.2-3.4); Lymphocytes % (auto) 4.4 %; Monocytes # (auto) 0.78 K/uL (0.11-0.59); Monocytes % (auto) 6.6 %; Neutrophils # (auto) 10.39 K/uL (1.40-6.50); Neutrophils % (auto) 87.3 %
[2022-12-30] MEDS: buPROPion XL 150 MG TABCR PO SCH (09:18)
[2022-12-30] MEDS: PARoxetine HCL 20 MG TAB PO SCH (09:19)
[2022-12-30] MEDS: FOLIC ACID 1 MG TAB PO SCH (09:19)
[2022-12-30] MEDS: LORATADINE 10 MG TAB PO SCH (09:19)
[2022-12-30] MEDS: METOPROLOL TARTRATE 25 MG TAB PO SCH ×2 (09:19→22:02)
[2022-12-30] MEDS: FLUTICASONE PROPIONATE NA SPR 16 GM BTL SCH (09:19)
--- NOTE | 2022-12-30 09:22 | Hospitalist Progress Note ---
"Date of Service December 30, 2022 Assessment & Plan (1) Epistaxis: Plan: Yimi Snyder is a 76 year-old male with PMHx of paroxysmal afib, CAD, HFpEF, s/p TAVR, HTN, HLD, BPH, MARLON, depression, anxiety, epistaxis, CKD, anemia, and GERD presents with nose bleed and abdominal pain. Supraventricular Tachycardia Secondary to Suspected Underlying Cardiac Event -SVT at 5am on 12/30/22, spontaneous conversion in and out- eventually required adenosine and amiodarone drip -EKG showed SVT, repeat EKG from later today ordered -Cardiology consulted- appreciated recommendations -Advised to continue amiodarone * Had extended discussion with Dr. Beyer and patient's and daughter- his reiterates that she wants him to be comfortable but desires further medical interventions at this time. They understand that additional interventions including cardioversion could be necessitated and his confirms that they would want all interventions up to the point necessitating his DNR/DNI status. -Due to no PO intake, will add IV fluids at 80mL/h, will reassess fluid status in the morning- mindful of his known CHF. Will convert PO meds to IV as available. Anemia Secondary to Epistaxis -Presented with 1 day abdominal pain. He did have a 12 hour episode of L nostril bleeding prior to admission and a subsequent black/tarry BM. -Recently was restarted on Eliquis, notes a history of prior nosebleeds on Eliquis -FOBT positive. Hgb 9.8 on admission, baseline ~11.5. -Received cefepime in ED, although did meet SIRS criteria on admission- presentation appears most consistent with epistaxis secondary to Eliquis -GI consulted: low suspicion for GI bleed, could consider scope if signs of continued bleed. Will continue IV Protonix -Discussed with patient's and daughter about plan for restarting/stopping Eliquis and possible consequences -They expressed their concern about being able to care for him at home -Received 1 unit PRBCs (12/30) due to elevated HR and hemoglobin at 7.9 H/o biliary sludge -CBD stent placed on 12/11/22. LFTs stable since last admission. -Follows with GI outpatient. Recommended removal of stent in 3 months HFpEF | Mitral regurgitation, chronic | s/p TAVR -he is with chronic sob, on 2L O2 at home. Previous echo EF 45-50%. Lungs clear on examination, do not suspect acute exacerbation at this time. CXR with no acute changes. -Continue metoprolol -Hold home Lasix at this time. Per previous admission note, he was advised to only use diuretics with weight gain d/t CHF. Elevated d-dimer -ordered due to fluctuations in sob and HR. D-dimer 1970, however, he is with recent epistaxis. Also with recent CBD stent placement. Macrocytic Anemia/Poikilocytosis -evidenced on peripheral smear 12/09. Follows with heme/onc as outpatient. Bone marrow biopsy without evidence of myelodysplasias -Continue folic acid CAD -Continue statin, metoprolol -hold asa d/t possible GI bleed CKD, stage 3b -Creatinine WNL Hypokalemia -Potassium at 2.8 this morning, ordered repletion of 60meq -Ordered repeat BMP for this afternoon and repeat tomorrow a.m. Afib -Continue metoprolol -Hold Eliquis d/t epistaxis -Monitor on telemetry Chronic sinusitis -Continue Flonase, loratadine HLD -Continue statin Anxiety, Depression -Continue Paxil, Wellbutrin BPH -Continue tamsulosin Anorexia, chronic -Likely 2/2 cardiac cachexia in the setting of RHF/LHF -Continue Marinol BID -Palliative consultation during previous admission DVT ppx: SCDs FEN/GI: regular Code Status: DNR/DNI Dispo: PCU (2) Abdominal pain: (3) Paroxysmal A-fib: (4) Heart failure with mildly reduced ejection fraction (HFmrEF): (5) Severe mitral regurgitation: (6) S/p TAVR (transcatheter aortic valve replacement), bioprosthetic: (7) Hypertension: (8) Sleep apnea: (9) Dyslipidemia: (10) BPH with obstruction/lower urinary tract symptoms: (11) CAD (coronary artery disease): (12) Depression with anxiety: (13) GERD (gastroesophageal reflux disease): (14) CKD (chronic kidney disease): (15) Anemia: Admission and Anticipated Discharge Date Admission Date: December 26, 2022 Supervising Physician Co-Signing Physician Notes Attending attestation Pt seen and examined in concert with Dr. Ca. In agreement with the documented findings as noted in the resident documentation with any exceptions or additions as noted here. Limited responsiveness while laying flat to active stimuli, appears discomfited. On examination, S1/S2 nl IRR. CTAB. Abd NT/ND BS+ve SVT s/p cardioversion w/ adenosine in the setting of complex cardiac history - cards consult - amio drip, continue metoprolol, transition to amio PO by cardiology discretion Discomfort of unknown origin and decreased POI in the setting of baseline dementia - pain control w/ morphine, if no improvement consider conversion of medication to IV where able Anemia, acute blood loss in the setting of macrocytic anemia with epistaxis s/p 1UPRBC - appropriately improved. Trend CBC daily. Continue PPI Extensive goals of care conversation re: interventions in the setting of recent SVT with cardioversion and DNR/DNI status. Family still considering what patient 's wishes would be but presently defer aggressive/invasive interventions (e.g. procedural care) without careful consideration and are agreeable to continue evaluation and current care and re-assess with any decompensation. Reinforced DNR/DNI. Else see resident documentation as noted. Subjective Patient seen and examined at bedside. Overnight patient was screaming out in pain, had period of SVT overnight and returned to sinus- later returned to SVT and received Adenosine 6mg and 12mg, later Lopressor and started on amiodarone drip. Patient makes noises in pain when rolling him to his side/moving him. Per nursing he has been refusing oral meds and PO intake today, is responding minimally. Review of Systems Review of Systems: As per above Physical Exam Constitutional: + acute distress and + frail appearing Eyes: + anicteric sclerae ENMT: Ears: no external ear abnormality Nose: no external nose abnormality Respiratory: Decreased lung sounds at bases. No accessory muscle use. Cardiovascular: Rate/Rhythm: + irregularly irregular Gastrointestinal (Abdomen): Abdomen soft, nondistended. Skin: + pallor Results & Data Results & Data Vital Signs (Past 12 Hours) Vital Signs Temp Pulse Pulse Pulse Resp BP BP 12/30/22 07:53 36.3 C L 90 15 12/30/22 06:48 96 H 91/63 L 12/30/22 06:36 96 H 83/68 L 12/30/22 06:05 95 H 87/55 L 12/30/22 06:00 98 H 82/62 L 12/30/22 05:55 96 H 81/56 L 12/30/22 05:50 99 H 70/51 L 12/30/22 05:45 169 H 80/60 L 12/30/22 05:30 177 H 90/60 L 12/30/22 06:26 98 H 82/62 L 12/30/22 03:18 36.7 C 98 H 18 92/62 L 12/30/22 00:30 97/66 L 12/30/22 01:14 105 H 99/68 L 12/29/22 23:36 119 H 12/29/22 22:58 36.8 C 108 H 18 BP Pulse Ox O2 Del Method O2 Flow Rate 12/30/22 07:53 89/64 L 94 Nasal Cannula 2 12/30/22 06:48 12/30/22 06:36 12/30/22 06:05 12/30/22 06:00 12/30/22 05:55 12/30/22 05:50 12/30/22 05:45 94 Nasal Cannula 2 12/30/22 05:30 96 Room Air 12/30/22 06:26 12/30/22 03:18 95 Room Air 12/30/22 00:30 12/30/22 01:14 12/29/22 23:36 12/29/22 22:58 94/63 L 97 Room Air Resident Activity Tracking Resident Involvement: Resident Care Provided Care Provided: Adult [facility] (11) CAD (coronary artery disease) Associated angina: without angina Coronary Disease-Associated Artery/Lesion type: unspecified vessel or lesion type [place] vs. transplanted heart: unspecified whether [place] or transplanted heart Qualified Code(s): I25.10 - Atherosclerotic heart disease of [place] coronary artery without angina pectoris"
[2022-12-30] MEDS: PANTOprazole 40 MG in SYRINGE 0 ML IV SCH ×2 (10:02→21:57)
[2022-12-30] MEDS: AMIODARONE / D5W 360 MG/200 ML BAG IV SCH (11:59)
[2022-12-30] MEDS: droNABinol 2.5 MG CAP PO SCH ×2 (11:59→16:33)
--- NOTE | 2022-12-30 15:19 | Cardiology Consultation ---
Date of Consultation December 30, 2022 Assessment & Plan (1) SVT (supraventricular tachycardia): (2) Heart failure with mildly reduced ejection fraction (HFmrEF): (3) Severe mitral regurgitation: (4) S/p TAVR (transcatheter aortic valve replacement), bioprosthetic: (5) CAD (coronary artery disease): (6) Paroxysmal A-fib: Plan 1. SVT: He appears to have a reentrant SVT. I think the likelihood that this is atrial flutter is low. He has baseline conduction disease and conducting atrial flutter in a one-to-one fashion would be unlikely. Unfortunately, the ventricular rate was quite high and he likely had an element of ischemia with the event itself. Generally, catheter based therapy would be recommended to prevent additional episodes. However, his overall clinical condition is poor and it is unclear if he is a good candidate for any intervention at this point. He is not currently taking oral medications in the most immediate ineffective intervention would be continued use of the amiodarone infusion. 2. Congestive heart failure: He actually appears to be euvolemic. He is not taking anything by mouth. Daily diuretic has been discontinued. 3. Cardiomyopathy: He was noted to have mildly reduced LV systolic function during his last admission. Currently on metoprolol tartrate. His medical regimen could be made more aggressive. However, his overall clinical status appears to be declining. He is mildly hypotensive. If his other comorbidities improved we may have the option to try additional therapy. 4. Aortic valve disease: Status post bioprosthetic TAVR. Normal function on last echocardiogram. 5. Severe mitral regurgitation: Not a candidate for any intervention. We will need to monitor him for signs of congestive heart failure. 6. Atrial fibrillation: Paroxysmal. Currently in sinus rhythm. Not on anticoagulation due to history of hemorrhage and anemia the possibility of left atrial appendage occlusion has been explored in the outpatient setting. However, given his current difficulties with bleeding even that may be relatively contraindicated as it would require at least a period anticoagulation and use of anti-platelet agents. Obstructive coronary disease involving the proximal circumflex and D1 evidence of ischemic changes on his EKG when he had a rapid rate. Unable to assess symptoms at this time continue aggressive secondary prevention with high-dose atorvastatin History of Present Illness Reason for Consultation: SVT Requesting Physician: Lanny Attending Physician: Junior Beyer MD History of Present Illness The patient is a 77-year-old gentleman with an extensive cardiac history to involve severe aortic stenosis status post TAVR, dilated thoracic aorta, coronary artery disease, paroxysmal atrial fibrillation, hypertension and mitral regurgitation was admitted to the hospital with symptoms of abdominal pain, weakness, epistaxis and anemia. The patient was recently hospitalized and did undergo biliary stenting. At that time he also underwent a cardiac evaluation for evidence of volume overload. He was felt to have cor pulmonale. Last evening the patient experienced several episodes of rapid heart rate. These appear to be of associated with some element of discomfort as he was noted to be crying out. Patient was administered adenosine. , is unclear if that had any notable affect. He eventually returned to a sinus rhythm. Unfortunately, the patient is very communicative. He does respond to touch in will open his left eye. However, he does not answer questions. He quickly returns to sleeping. According to the nursing staff he is becoming less resp onsive. He did not eat today and was unable to take oral medications. Allergies Allergy/AdvReac Type Severity Reaction Status Date / Time baclofen Allergy Unknown PT & PT'S Verified 12/08/22 20:11 SPOUSE DENIES ANY ALLERGIES OR SENSATIVITY TO MED cyclobenzaprine Allergy Unknown PT & PT'S Verified 12/08/22 20:11 [From Flexeril] SPOUSE DENIES ANY ALLERGIES OR SENSATIVITY TO MED doxazosin Allergy Unknown PT & PT'S Verified 12/08/22 20:11 SPOUSE DENIES ANY ALLERGIES OR SENSATIVITY TO MED doxycycline Allergy Unknown PT & PT'S Verified 12/08/22 20:11 SPOUSE DENIES ANY ALLERGIES OR SENSATIVITY TO MED duloxetine Allergy Unknown PT & PT'S Verified 12/08/22 20:11 SPOUSE DENIES ANY ALLERGIES OR SENSATIVITY TO MED gabapentin Allergy Unknown PT & PT'S Verified 12/08/22 20:11 SPOUSE DENIES ANY ALLERGIES OR SENSATIVITY TO MED lisinopril Allergy Unknown PT & PT'S Verified 12/08/22 20:11 SPOUSE DENIES ANY ALLERGIES OR SENSATIVITY TO MED naproxen Allergy Unknown PT & PT'S Verified 12/08/22 20:11 SPOUSE DENIES ANY ALLERGIES OR SENSATIVITY TO MED nortriptyline [From Pamelor] Allergy Unknown PT & PT'S Verified 12/08/22 20:11 SPOUSE DENIES ANY ALLERGIES OR SENSATIVITY TO MED oxcarbazepine Allergy Unknown PT & PT'S Verified 12/08/22 20:11 SPOUSE DENIES ANY ALLERGIES OR SENSATIVITY TO MED Penicillins Allergy Unknown PT & PT'S Verified 12/08/22 20:11 SPOUSE DENIES ANY ALLERGIES OR SENSATIVITY TO MED Home Medications Medication Instructions Recorded Confirmed Type acetaminophen 500 mg tablet 1,000 mg PO TID PRN fever or pain 11/18/18 12/26/22 Rx #90 tabs aspirin 81 mg tablet,delayed 81 mg PO DAILY #90 tabs 06/09/22 12/26/22 Rx release Wheelchair (Manual) #1 ea 09/17/22 12/26/22 Rx Oxygen Home #1 ea 10/12/22 12/26/22 Rx atorvastatin 80 mg tablet 80 mg PO HS #90 tabs 11/05/22 12/26/22 Rx bupropion HCl 150 mg 24 hr tablet, 150 mg PO QAM #90 tabs 11/05/22 12/26/22 Rx extended release (Wellbutrin XL) fluticasone propionate 50 2 spray intranasal DAILY #48 grams 11/05/22 12/26/22 Rx mcg/actuation nasal spray,suspension (Flonase Allergy Relief) pantoprazole 40 mg tablet,delayed 40 mg PO DAILY #90 tabs 11/05/22 12/26/22 Rx release paroxetine HCl 40 mg tablet 40 mg PO QAM #90 tabs 11/05/22 12/26/22 Rx potassium chloride 20 mEq 20 meq PO QAM #90 tabs 11/05/22 12/26/22 Rx tablet,extended release tamsulosin 0.4 mg capsule 0.4 mg PO HS #90 caps 11/05/22 12/26/22 Rx loratadine 10 mg tablet 10 mg PO DAILY 11/09/22 12/26/22 History apixaban 5 mg tablet (Eliquis) 5 mg PO BID 30 days #60 tabs 12/18/22 12/26/22 Rx dronabinol 2.5 mg capsule (Marinol) 2.5 mg PO BID #28 caps 12/18/22 12/26/22 Rx folic acid 1 mg tablet 1 mg PO QAM 30 days #30 tabs 12/18/22 12/26/22 Rx metoprolol tartrate 25 mg tablet 12.5 mg PO BID 30 days #30 tabs 12/18/22 12/26/22 Rx furosemide 20 mg tablet 20 mg PO QAM 12/26/22 12/26/22 History Patient History Medical History (Updated 12/30/22 @ 16:47 by Arley Rodriguez MD) Acute heart failure with preserved ejection fraction Acute metabolic encephalopathy Acute on chronic heart failure with preserved ejection fraction (HFpEF) Aneurysm, thoracic aortic pt unaware of size, follows with Dr. Paige Aortic atherosclerosis Aortic stenosis, severe Atrial fibrillation Atrial fibrillation with rapid ventricular response BPH with obstruction/lower urinary tract symptoms CAD (coronary artery disease) Cervical disc disease CHF (congestive heart failure) Chronic anticoagulation Chronic sinusitis Cognitive disorder Colitis Coronary artery calcification Depression with anxiety DVT (deep venous thrombosis) Dyslipidemia Elevated LFTs Encounter for pre-operative examination Glaucoma Hearing loss Hepatic steatosis History of central retinal vein occlusion Hypertension Hypotension Iron deficiency Lower GI bleed no current issues Lumbar spinal stenosis Lymphopenia Mitral regurgitation MVP (mitral valve prolapse) Osteoarthritis PAC (premature atrial contraction) Palliative care encounter Pleural effusion on right Recurrent epistaxis Red blood cell abnormality Sleep apnea Trigeminal neuralgia received radiation for this, having numbess/tingling to right side of face since this Vitamin D deficiency Surgical History H/O cataract extraction (2013) H/O colonoscopy History of cochlear implant (01/12/12) BILATERAL History of pilonidal cyst removed History of umbilical hernia repair S/P foot surgery, right (12/2010) removal of heel spur S/P laser trabeculoplasty of eye (10/2014) b/l S/P nasal endoscopy with nasal polypectomy (2011) S/P rotator cuff repair b/l shoulders S/p TAVR (transcatheter aortic valve replacement), 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) Family History Mother No pertinent family history Other Hypertension Denies family history of Ovarian cancer Prostate cancer Diabetes Myocardial infarction Breast cancer Colorectal cancer Cancer Social History Smoking Status: Never smoker Tobacco Type: Cigarettes Second Hand Exposure: No; Do You Dip or Chew Tobacco: No; Hx Alcohol Use: No Hx Substance Use: No Preferred Language: Russian Communication Ability: Impaired Visual Impairment: No Limitations Hearing Ability: Cochlear Implant Blowing [place] Required: No Beliefs That Will Affect Care: None marital status: Current Living Situation: Spouse Current Living Situation Comment: with and daughter current occupational status: retired How many Children do You have: 1 Feels Safe at Home: Yes Childhood Exposure to Second-Hand Smoke: Yes Diet: regular Diet Comment: regular caffeine: Yes (Soda 6 per day. Coffee 1 cup per day.) during the past year weight has: remained stable Dental Care, Regularly: No Physical Activity Frequency: Daily Seatbelt Use: sometimes Sunscreen Use: No Assistive Devices: Cane, Hospital Bed, Oxygen - Continuous, Walker and Wheelchair Review of Systems Review of Systems: Unobtainable due to cognitive status Physical Exam Physical Exam: The patient was arousable to touch. However, he did not respond to questions and quickly fell back asleep. HEENT: [place] open his left eye. The sclerae are anicteric. Neuro: Patient did not open the right eye. Otherwise unobtainable due to reduced level of consciousness. Lungs: Clear to auscultation bilaterally. He has good air movement without use of accessory muscles. No rales wheezes or rhonchi. Cardiac: Heart demonstrates a regular rate and rhythm. Normal S1 and S2. Crescendo systolic murmur. Abdomen: Tender in the right upper quadrant. Pulses: The patient has palpable radial pulses bilaterally that are equal in intensity Extremities: There was no evidence of hypoperfusion. There is no cyanosis or clubbing. There is no edema. Skin: I did not appreciate any rashes on examination today. Results & Data Vital Signs (Past 12 Hours) Vital Signs Temp Pulse Pulse Pulse Resp BP BP 12/30/22 11:03 36.6 C 86 15 92/69 L 12/30/22 08:00 12/30/22 07:53 36.3 C L 90 15 12/30/22 06:48 96 H 91/63 L 12/30/22 06:36 96 H 83/68 L 12/30/22 06:05 95 H 87/55 L 12/30/22 06:00 98 H 82/62 L 12/30/22 05:55 96 H 81/56 L 12/30/22 05:50 99 H 70/51 L 12/30/22 05:45 169 H 80/60 L 12/30/22 05:30 177 H 90/60 L 12/30/22 06:26 98 H 82/62 L 12/30/22 03:18 36.7 C 98 H 18 92/62 L BP Pulse Ox O2 Del Method O2 Flow Rate 12/30/22 11:03 93 Room Air 12/30/22 08:00 Room Air, Nasal Cannula 2 12/30/22 07:53 89/64 L 94 Nasal Cannula 2 12/30/22 06:48 12/30/22 06:36 12/30/22 06:05 12/30/22 06:00 12/30/22 05:55 12/30/22 05:50 12/30/22 05:45 94 Nasal Cannula 2 12/30/22 05:30 96 Room Air 12/30/22 06:26 12/30/22 03:18 95 Room Air Laboratory Results Abnormal Lab Results 12/26/22 12/29/22 12/30/22 21:13 16:06 05:46 WBC 11.89 H RBC 3.12 L Hgb 9.2 L 10.1 L Hct 28.2 L 30.6 L MCV 98.1 MCH 32.4 MCHC 33.0 RDW Std Deviation 70.0 H RDW Coeff of Herrera 19.7 H Plt Count 179 MPV 12.0 Immature Gran % (Auto) 1.3 Neut % (Auto) 87.3 Lymph % (Auto) 4.4 [place] % (Auto) 6.6 Eos % (Auto) 0.1 Baso % (Auto) 0.3 Neut # (Auto) 10.39 H Lymph # (Auto) 0.52 L [place] # (Auto) 0.78 H Eos # (Auto) 0.01 Baso # (Auto) 0.03 Immature Gran # (Auto) 0.16 Absolute Nucleated RBC 0.05 Nucleated RBC % (auto) 0.4 Sodium Potassium Chloride Carbon Dioxide Anion Gap BUN Creatinine Est Cr Clr Drug Dosing Est GFR ( Amer) Est GFR (Non-Af Amer) BUN/Creatinine Ratio Glucose Lactate Calcium Phosphorus Magnesium Total Bilirubin AST ALT Alkaline Phosphatase Troponin I High Sens Total Protein Albumin Globulin Albumin/Globulin Ratio Babesia microti DNA PCR Not Detected 12/30/22 12/30/22 12/30/22 05:46 05:47 05:47 WBC RBC Hgb Hct MCV MCH MCHC RDW Std Deviation RDW Coeff of Herrera Plt Count MPV Immature Gran % (Auto) Neut % (Auto) Lymph % (Auto) [place] % (Auto) Eos % (Auto) Baso % (Auto) Neut # (Auto) Lymph # (Auto) [place] # (Auto) Eos # (Auto) Baso # (Auto) Immature Gran # (Auto) Absolute Nucleated RBC Nucleated RBC % (auto) Sodium 142 Potassium 3.9 Chloride 110 H Carbon Dioxide 21 Anion Gap 11 BUN 59 H Creatinine 1.36 Est Cr Clr Drug Dosing 47.7 Est GFR ( Amer) 58.6 Est GFR (Non-Af Amer) 50.5 BUN/Creatinine Ratio 43.4 H Glucose 113 H Lactate 2.4 H* Calcium 8.6 Phosphorus 3.0 Magnesium 2.8 H Total Bilirubin 4.0 H AST 154 H ALT 75 H Alkaline Phosphatase 135 H Troponin I High Sens 603.4 H* Total Protein 6.1 Albumin 3.0 L Globulin 3.1 Albumin/Globulin Ratio 1.0 Babesia microti DNA PCR 12/30/22 12/30/22 08:28 08:28 WBC RBC Hgb Hct MCV MCH MCHC RDW Std Deviation RDW Coeff of Herrera Plt Count MPV Immature Gran % (Auto) Neut % (Auto) Lymph % (Auto) [place] % (Auto) Eos % (Auto) Baso % (Auto) Neut # (Auto) Lymph # (Auto) [place] # (Auto) Eos # (Auto) Baso # (Auto) Immature Gran # (Auto) Absolute Nucleated RBC Nucleated RBC % (auto) Sodium Potassium Chloride Carbon Dioxide Anion Gap BUN Creatinine Est Cr Clr Drug Dosing Est GFR ( Amer) Est GFR (Non-Af Amer) BUN/Creatinine Ratio Glucose Lactate 2.4 H* Calcium Phosphorus Magnesium Total Bilirubin AST ALT Alkaline Phosphatase Troponin I High Sens 499.9 H* Total Protein Albumin Globulin Albumin/Globulin Ratio Babesia microti DNA PCR Diagnostic Findings Echocardiogram obtained 12/12/2022: Mildly reduced LV systolic function with ejection fraction of 45-50%. Bioprosthetic aortic valve. Severe mitral regurgitation. Moderate left atrial dilation. Elevated right ventricular systolic pressure estimated at 50-60 mm of mercury. Mild aortic dilation estimated 4 cm ECG Additional Comments: Initial EKG demonstrated sinus rhythm with first-degree AV block and a right bundle branch block. Some PVCs. EKG obtained today at 5:22 a.m.: SVT with right bundle-branch block and ST segment changes concerning for ischemia PG Care Time/CCT Total # of Minutes Spent Total Time Spent with Patient: Total time spent is greater than 50% in coordination of care (as documented) at patient's floor/unit and/or counseling patient: Coding Level of Care Code 22367 INT INP/OBS CARE 3/75MIN Diagnoses SVT (supraventricular tachycardia) I47.1 Heart failure with mildly reduced ejection fraction (HFmrEF) I50.22 Severe mitral regurgitation I34.0 S/p TAVR (transcatheter aortic valve replacement), bioprosthetic Z95.3 CAD (coronary artery disease) I25.10 Associated angina: without angina Coronary Disease-Associated Artery/Lesion type: unspecified vessel or lesion type [place] vs. transplanted heart: unspecified whether [place] or transplanted heart Paroxysmal A-fib I48.0 (5) CAD (coronary artery disease) Associated angina: without angina Coronary Disease-Associated Artery/Lesion type: unspecified vessel or lesion type [place] vs. transplanted heart: unspecified whether [place] or transplanted heart Qualified Code(s): I25.10 - Atherosclerotic heart disease of [place] coronary artery without angina pectoris
[2022-12-30] MEDS ORDERED: SODIUM CHLORIDE 0.9% 1000ML 1,000 ML IV SCH (16:00)
[2022-12-30] MEDS: oxyCODONE HCL SOLN 5 MG/5 ML UDC PO SCH ×3 (16:33→22:46)
--- NOTE | 2022-12-30 18:09 | Electrocardiogram Report ---
Test Reason : Blood Pressure : / mmHG Vent. Rate : 177 BPM Atrial Rate : 174 BPM P-R Int : 000 ms QRS Dur : 102 ms QT Int : 272 ms P-R-T Axes : 000 097 122 degrees QTc Int : 466 ms Supraventricular tachycardia Rightward axis Incomplete right bundle branch block Marked ST abnormality, possible inferior subendocardial injury Marked ST abnormality, possible anterolateral subendocardial injury Abnormal ECG When compared with ECG of 26-DEC-2022 17:10, Premature ventricular complexes are no longer Present [place] interval has decreased Vent. rate has increased BY 98 BPM Incomplete right bundle branch block is now Present Confirmed by Arley Rodriguez ([id number]) on 12/30/2022 6:09:09 PM Referred By: REFERRED SELF Confirmed By:Geraldo Rodriguez
[2022-12-30] MEDS: ATORVASTATIN 40 MG TAB PO SCH (22:01)
[2022-12-30] MEDS: TAMSULOSIN HCL 0.4 MG CAP PO SCH (22:02)
[2022-12-30] MEDS ORDERED: ACETAMINOPHEN 1,000 MG/100 ML VIAL IV PRN (23:10)
[2022-12-31] MEDS: AMIODARONE / D5W 360 MG/200 ML BAG IV SCH ×2 (01:08→13:57)
[2022-12-31] MEDS: oxyCODONE HCL SOLN 5 MG/5 ML UDC PO SCH ×6 (02:55→21:17)
[2022-12-31] MEDS: HYDROmorphone INJ 0.5 MG/0.5 ML SYR IV PRN ×3 (03:21→22:29)
[2022-12-31 07:10] LABS: Hematocrit (blood only) 26.7 % (42.0-52.0); Hemoglobin 8.8 g/dl (14.0-18.0); Mean Corpuscular Hemoglobin 32.2 pg (25.0-34.0); Mean Corpuscular Volume 97.8 fL (80.0-100.0); Mean Platelet Volume 11.9 fL (9.4-12.4); Nucleated RBC # (auto) 0.03 K/uL (0-0.12); Nucleated RBC % (auto) 0.2 %; Platelet Count 184 K/uL (130-400); RDW Coefficient of Variation 18.7 % (11.5-14.5); RDW Standard Deviation 66.8 fL (36.4-46.3); Red Blood Count 2.73 M/uL (4.70-6.10); White Blood Count 13.26 K/ul (4.8-10.8)
[2022-12-31 07:23] LABS: Albumin Level 2.6 gm/dl (3.4-5.0); BUN Creatinine Ratio 42.7 (10-20); Bilirubin,Total 3.6 mg/dl (0.2-1.0); Calcium 7.8 mg/dl (8.6-10.3); Creatinine Clr Calc Pharmacy 36.4 ml/min; Est GFR (African American) 46.7 ml/min; Est GFR (Non-African American) 40.3 ml/min; Globulin 2.6 gm/dl (2.5-4.0); Potassium 3.2 mmol/L (3.5-5.1); Total Protein 5.2 gm/dl (6.0-8.3)
[2022-12-31 07:39] LABS: Acanthocytes 1+; Basophils # (auto) 0.05 K/uL (0-0.2); Basophils % (auto) 0.4 %; Echinocytes 1+; Eosinophils # (auto) 0.02 K/uL (0-0.50); Eosinophils % (auto) 0.2 %; Immature Granulocytes % (auto) 3.8 %; Lymphocytes # (auto) 0.44 K/uL (1.2-3.4); Lymphocytes % (auto) 3.3 %; Monocytes # (auto) 0.93 K/uL (0.11-0.59); Neutrophils # (auto) 11.32 K/uL (1.40-6.50); Neutrophils % (auto) 85.3 %
--- NOTE | 2022-12-31 08:09 | Hospitalist Progress Note ---
"Date of Service December 31, 2022 Assessment & Plan (1) Epistaxis: Plan: Yimi Snyder is a 76 year-old male with PMHx of paroxysmal afib, CAD, HFpEF, s/p TAVR, HTN, HLD, BPH, MARLON, depression, anxiety, epistaxis, CKD, anemia, and GERD presents with nose bleed and abdominal pain. Supraventricular Tachycardia Secondary to Suspected Underlying Cardiac Event -SVT at 5am on 12/30/22, spontaneous conversion in and out- eventually required adenosine and amiodarone drip -EKG showed SVT, repeat EKG from later today ordered -Cardiology consulted- appreciated recommendations -Advised to continue amiodarone * Had extended discussion with Dr. Beyer and patient's and daughter- his reiterates that she wants him to be comfortable but desires further medical interventions at this time. They understand that additional interventions including cardioversion could be necessitated and his confirms that they would want all interventions up to the point necessitating his DNR/DNI status. * Patient was able to tolerate some PO intake/water this afternoon. If he remains more alert, could consider speech evaluation and possible transition to PO amiodarone * Patient's would like him to go to [facility] as this is close to their home- working on SNF placement. Anemia Secondary to Epistaxis -Presented with 1 day abdominal pain. He did have a 12 hour episode of L nostril bleeding prior to admission and a subsequent black/tarry BM. -Recently was restarted on Eliquis, notes a history of prior nosebleeds on Eliquis -FOBT positive. Hgb 9.8 on admission, baseline ~11.5. -Received cefepime in ED, although did meet SIRS criteria on admission- presentation appears most consistent with epistaxis secondary to Eliquis -GI consulted: low suspicion for GI bleed, could consider scope if signs of continued bleed. Will continue IV Protonix -Discussed with patient's and daughter about plan for restarting/stopping Eliquis and possible consequences -They expressed their concern about being able to care for him at home -Received 1 unit PRBCs (12/30) due to elevated HR and hemoglobin at 7.9 -Hbg today 8.8 H/o biliary sludge -CBD stent placed on 12/11/22. LFTs stable since last admission. -Follows with GI outpatient. Recommended removal of stent in 3 months HFpEF | Mitral regurgitation, chronic | s/p TAVR -he is with chronic sob, on 2L O2 at home. Previous echo EF 45-50%. Lungs clear on examination, do not suspect acute exacerbation at this time. CXR with no acute changes. -Continue metoprolol -Hold home Lasix at this time. Per previous admission note, he was advised to only use diuretics with weight gain d/t CHF. Elevated d-dimer -ordered due to fluctuations in sob and HR. D-dimer 1970, however, he is with re cent epistaxis. Also with recent CBD stent placement. Macrocytic Anemia/Poikilocytosis -evidenced on peripheral smear 12/09. Follows with heme/onc as outpatient. Bone marrow biopsy without evidence of myelodysplasias -Continue folic acid CAD -Continue statin, metoprolol -hold asa d/t possible GI bleed CKD, stage 3b -Creatinine WNL Hypokalemia -Potassium at 3.2 this morning, ordered repletion -Repeat BMP tomorrow a.m. Afib -Continue metoprolol -Hold Eliquis d/t epistaxis -Monitor on telemetry Chronic sinusitis -Continue Flonase, loratadine HLD -Continue statin Anxiety, Depression -Continue Paxil, Wellbutrin BPH -Continue tamsulosin Anorexia, chronic -Likely 2/2 cardiac cachexia in the setting of RHF/LHF -Continue Marinol BID -Palliative consultation during previous admission DVT ppx: SCDs FEN/GI: regular Code Status: DNR/DNI Dispo: PCU (2) Abdominal pain: (3) Paroxysmal A-fib: (4) Heart failure with mildly reduced ejection fraction (HFmrEF): (5) Severe mitral regurgitation: (6) S/p TAVR (transcatheter aortic valve replacement), bioprosthetic: (7) Hypertension: (8) Sleep apnea: (9) Dyslipidemia: (10) BPH with obstruction/lower urinary tract symptoms: (11) CAD (coronary artery disease): (12) Depression with anxiety: (13) GERD (gastroesophageal reflux disease): (14) CKD (chronic kidney disease): (15) Anemia: Admission and Anticipated Discharge Date Admission Date: December 26, 2022 Supervising Physician Co-Signing Physician Notes Attending attestation Pt seen and examined in concert with Dr. Ca. In agreement with the documented findings as noted in the resident documentation with any exceptions or additions as noted here. Limited responsiveness but sitting up in bed, alert without pain/discomfort apparent. Tolerating some water at bedside at present. On examination, S1/S2 nl IRR. CTAB. Abd NT without visible response on examination wtih palpation/ND BS+ve SVT s/p cardioversion w/ adenosine in the setting of complex cardiac history - cards consult - amio drip, continue metoprolol, now that tolerating POI better and more alert consider transition to amio PO by cardiology discretion Discomfort of unknown origin and decreased POI in the setting of baseline dementia - pain control, low threshold to repeat CT A/P with ongoing agitation/pain Anemia, acute blood loss in the setting of macrocytic anemia with epistaxis s/p 1UPRBC - appropriately improved. Trend CBC daily. Continue PPI Else see resident documentation as noted. Subjective Patient seen and examined at bedside. No acute events overnight, patient was still somnolent and refusing all PO meds/liquids this morning. Patient was also intermittently moaning during initial encounter. This afternoon patient was more awake/alert and asking for water- appeared more comfortable. Review of Systems Review of Systems: As per above Physical Exam Constitutional: + frail appearing Eyes: + anicteric sclerae ENMT: Ears: no external ear abnormality Nose: no external nose abnormality Respiratory: normal respiratory effort; does not use accessory muscles Cardiovascular: Rate/Rhythm: + irregularly irregular Gastrointestinal (Abdomen): Mild tenderness to palpation. Abdomen soft, nondistended. Skin: + pallor Psychiatric: Somnolent Results & Data Results & Data Vital Signs (Past 12 Hours) Vital Signs Temp Pulse Pulse Pulse Resp BP BP 12/31/22 07:40 36.3 C L 88 18 106/70 12/31/22 03:33 36.6 C 85 20 102/71 12/30/22 22:00 12/30/22 22:00 98 H 12/30/22 23:39 92 H 95/64 L 12/30/22 22:29 86 89/62 L 12/30/22 22:14 99 H 103/61 12/30/22 22:13 99 H 103/61 Pulse Ox O2 Del Method O2 Flow Rate 12/31/22 07:40 96 Nasal Cannula 2 12/31/22 03:33 97 Nasal Cannula 2 12/30/22 22:00 Nasal Cannula 2 12/30/22 22:00 12/30/22 23:39 12/30/22 22:29 12/30/22 22:14 12/30/22 22:13 Resident Activity Tracking Resident Involvement: Resident Care Provided Care Provided: Adult Hospital Medicine (11) CAD (coronary artery disease) Associated angina: without angina Coronary Disease-Associated Artery/Lesion type: unspecified vessel or lesion type [place] vs. transplanted heart: unspecified whether [place] or transplanted heart Qualified Code(s): I25.10 - Atherosclerotic heart disease of [place] coronary artery without angina pectoris"
[2022-12-31] MEDS: METOPROLOL TARTRATE 25 MG TAB PO SCH ×2 (08:45→21:16)
[2022-12-31] MEDS: FLUTICASONE PROPIONATE NA SPR 16 GM BTL SCH (08:45)
[2022-12-31] MEDS: FOLIC ACID 1 MG TAB PO SCH (08:45)
[2022-12-31] MEDS: PARoxetine HCL 20 MG TAB PO SCH (08:45)
[2022-12-31] MEDS: PANTOprazole 40 MG in SYRINGE 0 ML IV SCH ×2 (09:01→21:16)
--- NOTE | 2022-12-31 11:13 | Electrocardiogram Report ---
Test Reason : Blood Pressure : / mmHG Vent. Rate : 090 BPM Atrial Rate : 090 BPM P-R Int : 212 ms QRS Dur : 116 ms QT Int : 414 ms P-R-T Axes : 070 070 087 degrees QTc Int : 506 ms Sinus rhythm with 1st degree A-V block with Premature supraventricular complexes Incomplete right bundle branch block Prolonged QT Abnormal ECG Reconfirmed by Arley Rodriguez ([id number]) on 12/31/2022 11:13:56 AM Referred By: REFERRED SELF Confirmed By:Geraldo Rodriguez
[2022-12-31] MEDS: droNABinol 2.5 MG CAP PO SCH ×2 (12:13→17:01)
[2022-12-31] MEDS ORDERED: SODIUM CHLORIDE 0.9% 1000ML 1,000 ML IV SCH (16:30)
[2022-12-31] MEDS: POTASSIUM CHLORIDE / WTR 10 MEQ/100 ML PLCT IV SCH ×4 (17:45→22:30)
[2022-12-31] MEDS: ATORVASTATIN 40 MG TAB PO SCH ×2 (21:15→21:47)
[2022-12-31] MEDS: TAMSULOSIN HCL 0.4 MG CAP PO SCH ×2 (21:16→21:46)
[2023-01-01] MEDS ORDERED: MAGNESIUM SULFATE / D5W 1 GM/100 ML BAG IV ONE (01:01)
[2023-01-01] MEDS ORDERED: MAGNESIUM SULFATE / D5W 1 GM/100 ML BAG IV STA (01:03)
[2023-01-01] MEDS ORDERED: ADENOSINE IV SOLN 3 MG/ML 2 ML VIAL IV ONE ×3 (01:07→01:39)
[2023-01-01] MEDS: AMIODARONE / D5W 360 MG/200 ML BAG IV SCH (01:34)
[2023-01-01] MEDS ORDERED: STAT IV Infusion **Titration per Protocol STA (01:35)
[2023-01-01] MEDS ORDERED: AMIODARONE / D5W 150 MG/100 ML BAG IV STA (01:35)
[2023-01-01] MEDS ORDERED: 0.2 MICRON FILTER SET 1 EACH IV ONE (01:35)
[2023-01-01] MEDS ORDERED: AMIODARONE 150MG / 100ML D5W IV ONE (01:35)
[2023-01-01] MEDS ORDERED: ADENOSINE IV SOLN 3 MG/ML 2 ML VIAL IV STA (01:35)
[2023-01-01] MEDS ORDERED: NOREPINEPHRINE/D5W 4 MG/250 ML IV ONE (01:36)
[2023-01-01] MEDS ORDERED: NOREPINEPHRINE/D5W 4 MG/250 ML PLCT IV SCH (01:45)
--- NOTE | 2023-01-01 02:22 | Communication Note ---
Date of Service: January 01, 2023 I was notified ~0030 that patient's BP was in the 70s systolic and he was more somnolent but still responsive to painful stimuli. Code purple was not activated due to patient being DNR/DNI. He had a similar occurrence to two nights ago. When seen at bedside, his monitor was showing an SVT vs afib rvr rhythm with HRs in the 130s. IVF bolus w/ pressure bag was started along with magnesium. On exam pulses were present and full. He did show abdominal guarding with most pain in RUQ. We pushed adenosine 6mg without response. Then 12mg at which point he did break into NSR for 2-3 seconds before going back into arrhythmia. BP continued to drop. I did personally speak with patient's and daughter while this was all happening and presented their options. They did opt for ICU transfer with pressors. Amio bolus was given on top of his active amio drip. Levophed was started. Patient continued to deteriorate in the PCU despite measures. I was on the phone again while Yimi passed. I pronounced him at 0200. Resident Activity Tracking Resident Involvement: Resident Care Provided Care Provided: Adult Hospital Medicine
--- NOTE | 2023-01-01 02:30 | Death Pronouncement Note ---
Date of Service January 01, 2023 Pronouncement Note Admission Date Admission Date: December 26, 2022 Date and Time of Date of : 01/01/23 Time of : 02:00 Contributing Factors (1) Epistaxis: (2) Abdominal pain: (3) Paroxysmal A-fib: (4) Heart failure with mildly reduced ejection fraction (HFmrEF): (5) Severe mitral regurgitation: (6) S/p TAVR (transcatheter aortic valve replacement), bioprosthetic: (7) Hypertension: (8) Sleep apnea: (9) Dyslipidemia: (10) BPH with obstruction/lower urinary tract symptoms: (11) CAD (coronary artery disease): (12) Depression with anxiety: (13) GERD (gastroesophageal reflux disease): (14) CKD (chronic kidney disease): (15) Anemia: Additional Data Confirmation of : no pulse, no respirations, no heart sounds and pupils fixed and dilated Family: contacted Attending/PCP notified?: Yes Attending physician: Zoraida Liz, DO Was code activated?: No (DNR/DNI) Resident Activity Tracking Resident Involvement: Resident Care Provided Care Provided: Adult Hospital Medicine
--- NOTE | 2023-01-01 02:31 | Communication Note ---
Date of Service: January 01, 2023 I was bedside to pronounce the of Yimi Snyder ( 1945) on 01/01/23. They were unresponsive to, and did not withdraw from verbal or tactile stimuli. They were unresponsive to corneal, pupillary, and oculocephalic reflexes. On cardiopulmonary exam, they were found to be without detectable carotid pulses, and without spontaneous heart tones or respirations. Time of was pronounced by me on 01/01/23 at 0200. Attending physician was notified. Next of kin was notified by myself (Dr. Jai Jensen). Resident Activity Tracking Resident Involvement: Resident Care Provided Care Provided: Adult Hospital Medicine
--- NOTE | 2023-01-01 07:15 | Discharge Summary ---
"Date of Service January 01, 2023 Admission HPI Per Admitting Provider 76 yo male with PMHx of paroxysmal afib, CAD, HFpEF, s/p TAVR, HTN, HLD, BPH, MARLON, depression, anxiety, epistaxis, CKD, anemia, and GERD presents with nose bleed and abdominal pain. Yesterday patient had 12 hours of bleeding from his L nostril. He does have a history of epistaxis but never for this long. Bleeding did eventually stop on its own. Today he reported a black BM. He has been having associated abdominal pain as well. Denies headache, chest pain, sob, fatigue, N/V/D, dysuria. extremity weakness/paraesthesia. Of note, he was discharged from [facility] a few days agao for acute on chronic HFpEF and is s/p TAVR 1 month ago. He requires 2L O2 on ambulation and does wear a cpap at night. During his last admission he also had a biliary stent inserted d/t biliary sludge. Follows with GI. Admission Exam Per Admitting Provider Constitutional: in no acute distress, pleasant, cachectic. AOx3. Vitals as above. HEENT: No scleral injection or discharge.Dry mucous membranes. Clear oropharynx. Nasal passages without active bleeding. Neck: Supple without lymphadenopathy or thyromegaly. Trachea midline. Lungs: Clear to auscultation bilaterally with good effort. No wheezes/rales/rhonchi. Cardiac:Irregularly irregular rhythm. Regular rate.+holosystolic murmur.1+ lower extremity edema bilaterally. 2+ distal peripheral pulses. Abdomen: Bowel sounds present. Soft and nondistended.Diffuse tenderness predominantly at midline abdomen. +guarding. No rebound tenderness. No hepatosplenomegaly. MSK: No cyanosis or clubbing. Extremities motor strength 5/5. Skin: No abnormal rashes, warm, dry. Neurologic: Grossly intact cranial nerves and 2+ patellar tendon reflexes bilaterally. PERRL. Principal Diagnosis Patient Discharge Exam Exam per Dr. Jensen Discharge Data Allergies Allergy/AdvReac Type Severity Reaction Status Date / Time baclofen Allergy Unknown PT & PT'S Verified 12/08/22 20:11 SPOUSE DENIES ANY ALLERGIES OR SENSATIVITY TO MED cyclobenzaprine Allergy Unknown PT & PT'S Verified 12/08/22 20:11 [From Flexeril] SPOUSE DENIES ANY ALLERGIES OR SENSATIVITY TO MED doxazosin Allergy Unknown PT & PT'S Verified 12/08/22 20:11 SPOUSE DENIES ANY ALLERGIES OR SENSATIVITY TO MED doxycycline Allergy Unknown PT & PT'S Verified 12/08/22 20:11 SPOUSE DENIES ANY ALLERGIES OR SENSATIVITY TO MED duloxetine Allergy Unknown PT & PT'S Verified 12/08/22 20:11 SPOUSE DENIES ANY ALLERGIES OR SENSATIVITY TO MED gabapentin Allergy Unknown PT & PT'S Verified 12/08/22 20:11 SPOUSE DENIES ANY ALLERGIES OR SENSATIVITY TO MED lisinopril Allergy Unknown PT & PT'S Verified 12/08/22 20:11 SPOUSE DENIES ANY ALLERGIES OR SENSATIVITY TO MED naproxen Allergy Unknown PT & PT'S Verified 12/08/22 20:11 SPOUSE DENIES ANY ALLERGIES OR SENSATIVITY TO MED nortriptyline [From Pamelor] Allergy Unknown PT & PT'S Verified 12/08/22 20:11 SPOUSE DENIES ANY ALLERGIES OR SENSATIVITY TO MED oxcarbazepine Allergy Unknown PT & PT'S Verified 12/08/22 20:11 SPOUSE DENIES ANY ALLERGIES OR SENSATIVITY TO MED Penicillins Allergy Unknown PT & PT'S Verified 12/08/22 20:11 SPOUSE DENIES ANY ALLERGIES OR SENSATIVITY TO MED Consultations 12/26/22 19:15 ED Decision to Admit Stat 12/26/22 19:29 ED Decision to Admit Stat 12/27/22 01:09 Consult Gastroenterology Routine 12/30/22 13:32 Consult Cardiology Routine Ordered Studies 12/26/22 17:19 CT head/brain wo con Stat 12/27/22 00:33 CT Abd and Pelvis [CT abd pelvis wo con] Stat Hospital Course (1) Epistaxis: Yimi Snyder is a 76 year-old male with PMHx of paroxysmal afib, CAD, HFpEF, s/p TAVR, HTN, HLD, BPH, MARLON, depression, anxiety, epistaxis, CKD, anemia, and GERD presented with nose bleed and abdominal pain. Supraventricular Tachycardia Secondary to Suspected Underlying Cardiac Event -SVT at 5am on 12/30/22, spontaneous conversion in and out- eventually required adenosine and amiodarone drip -Cardiology consulted on 12/30/22- appreciated recommendations -Advised to continue amiodarone -01/01/23: Per report from Dr. Jensen, overnight patient had BP in 70s systolic and was found on telemetry to have a rhythm of SVT vs AFib RVR with heart rate in the 130s. The patient received IV fluid bolus and received adenosine 6mg and 12mg. He briefly converted to sinus rhythm before returning to arrhythmia. The patient's BP continued to drop and he was started on Levophed with plans to tra nsfer to the ICU, despite these measures he continued to deteriorate and was pronounced at 0200. -Please see documentation by Dr. Jensen for additional information Goals of Care -Had extended discussion with Dr. Beyer and patient's and daughter on 12/30/22- his reiterated that she wants him to be comfortable but desired further medical interventions at that time. They expressed understanding that additional interventions including cardioversion could be necessitated and his confirmed that they would want all interventions up to the point necessitating his DNR/DNI status. -Patient had been more alert and able to tolerate some PO intake/water on the afternoon of 12/31/22, his had expressed her desire for him to eventually discharge to [facility] which was close to their home. Anemia Secondary to Epistaxis -Presented with 1 day abdominal pain. He did have a 12 hour episode of L nostril bleeding prior to admission and a subsequent black/tarry BM. -Recently was restarted on Eliquis, notes a history of prior nosebleeds on Eliquis -FOBT positive. Hgb 9.8 on admission, baseline Hgb ~11.5. -Received cefepime in ED, although did meet SIRS criteria on admission- presentation appears most consistent with epistaxis secondary to Eliquis -GI consulted: low suspicion for GI bleed, could consider scope if signs of con tinued bleed. Continued IV Protonix. -Discussed with patient's and daughter about plan for restarting/stopping Eliquis and possible consequences -Received 1 unit PRBCs (12/30) due to elevated HR and hemoglobin at 7.9 -Hbg 8.8 on 01/01 H/o biliary sludge -CBD stent placed on 12/11/22. LFTs stable since last admission. -Follows with GI outpatient. Recommended removal of stent in 3 months -Had intermittent pain with palpation of abdomen, was receiving IV Dilaudid for pain control. HFpEF | Mitral regurgitation, chronic | s/p TAVR -he is with chronic sob, on 2L O2 at home. Previous echo EF 45-50%. Lungs clear on examination, do not suspect acute exacerbation at this time. CXR with no acute changes. -Continue metoprolol -Held home Lasix at this time. Per previous admission note, he was advised to only use diuretics with weight gain d/t CHF. Elevated d-dimer -ordered due to fluctuations in sob and HR on admission. D-dimer 1970, however, he is with recent epistaxis and recent CBD stent placement. Macrocytic Anemia/Poikilocytosis -evidenced on peripheral smear 12/09. Followed with heme/onc as outpatient. Bone marrow biopsy without evidence of myelodysplasias -Continued folic acid CAD -Continued statin, metoprolol -held asa d/t possible GI bleed CKD, stage 3b -Creatinine WNL Hypokalemia -Potassium at 3.2 on 12/31, ordered repletion Afib -Continued metoprolol and amiodarone drip -Hold Eliquis d/t epistaxis -Monitored on telemetry Chronic sinusitis -Continued Flonase, loratadine HLD -Continue statin Anxiety, Depression -Continued Paxil, Wellbutrin BPH -Continued tamsulosin Anorexia, chronic -Likely 2/2 cardiac cachexia in the setting of RHF/LHF -Continued Marinol BID -Palliative consultation during previous admission (2) Abdominal pain: (3) Paroxysmal A-fib: (4) Heart failure with mildly reduced ejection fraction (HFmrEF): (5) Severe mitral regurgitation: (6) S/p TAVR (transcatheter aortic valve replacement), bioprosthetic: (7) Hypertension: (8) Sleep apnea: (9) Dyslipidemia: (10) BPH with obstruction/lower urinary tract symptoms: (11) CAD (coronary artery disease): (12) Depression with anxiety: (13) GERD (gastroesophageal reflux disease): (14) CKD (chronic kidney disease): (15) Anemia: Total Time Total Time Spent Total Time Spent (In Minutes): . Discharge Plan Discharge Items Patient Disposition: Other Date/Time: 01/01/23 02:00 Supervising Physician Co-Signing Physician Notes I was not present or attending physician while patient under care of Dr. Ca. Patient declared at 2:00 am 01/01/[address] Jensen. See documentation in chart. Resident Activity Tracking Resident Involvement: Resident Care Provided Care Provided: Adult [facility]"
--- NOTE | 2023-01-01 08:27 | Electrocardiogram Report ---
Test Reason : Blood Pressure : / mmHG Vent. Rate : 088 BPM Atrial Rate : 071 BPM P-R Int : 000 ms QRS Dur : 116 ms QT Int : 396 ms P-R-T Axes : 000 086 -07 degrees QTc Int : 479 ms Poor data quality, interpretation may be adversely affected Atrial fibrillation Incomplete right bundle branch block Prolonged QT Abnormal ECG When compared with ECG of 31-DEC-2022 09:25, Atrial fibrillation has replaced Sinus rhythm T wave inversion no longer evident in Lateral leads Confirmed by Arley Rodriguez ([id number]) on 01/01/2023 8:26:59 AM Referred By: REFERRED SELF Confirmed By:Geraldo Rodriguez
== END 2023-01-01 02:00 | disposition expired | DRG 813 ==
LOC: ED 16:59 → 2S 22:26 → SUATTDRO 22:26 → 2S 23:53
DX: D68.32 Hemorrhagic disorder due to extrinsic circulating anticoagulants; F41.8 Other specified anxiety disorders; I25.10 Atherosclerotic heart disease of native coronary artery without angina pectoris; E87.6 Hypokalemia; I47.1 Supraventricular tachycardia; K92.1 Melena; Z79.82 Long term (current) use of aspirin; Y92.129 Unspecified place in nursing home as the place of occurrence of the external cause; Z99.81 Dependence on supplemental oxygen; Z66 Do not resuscitate; N18.32 Chronic kidney disease, stage 3b; Z88.6 Allergy status to analgesic agent; R04.0 Epistaxis; R64 Cachexia; Z88.1 Allergy status to other antibiotic agents; Z96.89 Presence of other specified functional implants; I48.0 Paroxysmal atrial fibrillation; I42.9 Cardiomyopathy, unspecified; I08.0 Rheumatic disorders of both mitral and aortic valves; D53.9 Nutritional anemia, unspecified; I50.32 Chronic diastolic (congestive) heart failure; I50.82 Biventricular heart failure; D62 Acute posthemorrhagic anemia; I13.0 Hypertensive heart and chronic kidney disease with heart failure and stage 1 through stage 4 chronic kidney disease, or unspecified chronic kidney disease; N40.1 Benign prostatic hyperplasia with lower urinary tract symptoms; E78.5 Hyperlipidemia, unspecified; G93.41 Metabolic encephalopathy; J32.9 Chronic sinusitis, unspecified; Z95.2 Presence of prosthetic heart valve; Z88.0 Allergy status to penicillin; Z88.8 Allergy status to other drugs, medicaments and biological substances; R10.9 Unspecified abdominal pain